=== PATIENT | male | born 1980 | race Caucasian/White ===

== ENCOUNTER 2021-09-07 19:34 | Emergency (ER) | payer SELFPAY ==
--- NOTE | ~2021-09-07 | XR_ITS ---
EXAMINATION: XR chest 1V portable EXAM DATE: 09/07/2021 20:17 INDICATION: Chest tightness @ center of chest with SOB x 2 days. TECHNIQUE: Portable AP frontal chest x-ray was obtained. Comparison is made to prior examination from 2004. FINDINGS: The lungs are clear. There are no pleural effusions. The cardiomediastinal silhouette is within normal limits. There is no pneumothorax suspected. The bones and soft tissues are unremarkab le. There is no significant interval change. IMPRESSION: No acute cardiopulmonary findings. Reviewed, dictated and finalized at location A. [facility]
[2021-09-07 19:35] VITALS: BP 129/85; PULSE 100; PULSE 80; RESP 20; TEMP 36.8; O2SAT 98
--- NOTE | 2021-09-07 19:38 | ECG_ITS ---
Measurements Intervals [place] Rate: 89 P: 72 NC: 154 QRS: 32 QRSD: 85 T: 50 QT: 342 QTc: 417 Interpretive Statements SINUS RHYTHM WITH SINUS ARRHYTHMIA VOLTAGE CRITERIA FOR LVH BASELINE WANDER- II, III BORDERLINE ECG Electronically Signed On 09-08-2021 6:56:48 RELIGIOUS ACTIVITIES DIRECTOR by Mika Hidalgo D.O.
[2021-09-07 20:10] LABS: Basophils Absolute Auto 0.04 K/mm3 (0.00-0.10); Basophils Percent Auto 0.4 % (0.0-1.0); Eosinophils Absolute Auto 0.14 K/mm3 (0.02-0.50); Eosinophils Percent Auto 1.4 % (1.0-6.0); Hematocrit 45.6 % (40.0-54.0); Hemoglobin 15.1 g/dL (14.0-18.0); Immature Granulocyte Absolute 0.02 K/mm3 (0.00-0.00); Immature Granulocyte Percent A 0.2 % (0.0-0.0); Lymphocytes Absolute Auto 2.41 K/mm3 (1.10-4.50); Lymphocytes Percent Auto 24.3 % (18.0-42.0); Mean Corpuscular HGB Conc 33.1 g/dL (32.0-36.0); Mean Corpuscular Hemoglobin 29.9 pg (27.0-31.0); Mean Corpuscular Volume 90.3 fL (78.0-102.0); Mean Platelet Volume 10.7 fl (8.7-11.0); Monocytes Absolute Auto 0.83 K/mm3 (0.10-0.90); Monocytes Percent Auto 8.4 % (2.0-11.0); Neutrophils Absolute Auto 6.5 K/mm3 (1.7-7.2); Neutrophils Percent Auto 65.3 % (50.0-70.0); Platelet Count Result 208 K/mm3 (150-420); Red Blood Count 5.05 M/mm3 (4.70-6.10); Red Cell Distribution Width 12.7 % (11.6-14.4); White Blood Count 9.9 K/mm3 (4.8-10.8)
[2021-09-07] MEDS: NITROGLYCERIN SL 0.4 MG TABLET SUBLINGUAL (20:18)
[2021-09-07 20:24] LABS: D Dimer 0.19 mg/L (0.19-0.50); Prothrombin Time 10.9 Seconds (9.50-12.10)
--- NOTE | 2021-09-07 20:32 | ED.GENADULT ---
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 He is traveling to [place], [place] for treatment. He ate a large meal of pork chops and mashed potatoes then started having chest pain and nausea with some SOB. He denies lightheadedness and vomiting. He took a full strength aspirin before arrival. He also reports 2 days of left upper arm redness and pain that is getting worse. Related Data Allergies Allergy/AdvReac Type Severity Reaction Status Date / Time No Known Allergies Allergy Verified 09/07/21 19:50 Review of Systems Constitutional: Constitutional: Reports no additional constitutional complaints Eyes: Eyes: Reports no additional eye complaints ENT: Reports system reviewed and no additional complaints, except as documented Cardiovascular: Cardiovascular: Reports as per HPI Respiratory: Respiratory: Reports as per HPI Gastrointestinal: Gastrointestinal: Reports no additional gastrointestinal complaints Genitourinary: Genitourinary: Reports no additional male genitourinary complaints Musculoskeletal: Musculoskeletal: Reports no additional musculoskeletal complaints Integumentary/Breasts: Skin/Breast: Reports system reviewed and no additional complaints, except as docu Neurologic: Reports system reviewed and no additional complaints, except as documented Psychiatric: Psychiatric: Reports no additional psychiatric complaints Endocrine: Endocrine: Reports no additional endocrine complaints Hematologic/Lymphatic: Hematologic/Lymphatic: Reports no additional hematologic/lymphatic complaints Allergic/Immunologic: Allergic/Immunologic: Reports no additional allergic/immunologic complaints Exam Const: General: no acute distress and alert Orientation/consciousness: patient oriented x3 Limitations: altered mental status HENMT: Head: normal to inspection Other: atraumatic, normocephalic Eyes: Conjunctivae: conjunctivae normal Pupils: Equal, round and reactive pupils present Neck: Neck: normal visual inspection Chest: Chest palpation & inspection: normal inspection of the chest Resp: Effort & Inspection: normal respiratory effort, not labored and not tachypneic Auscultation: clear to auscultation bilaterally Cardio: Rate: regular rate Rhythm: regular rhythm Heart sounds: no murmurs GI: Inspection: non-distended GI Palp: Yes Soft to palpation, No Tenderness to palpation present (GI) and No Guarding due to palpation present (GI) Back/Spine/Pelvis: Back: no CVA tenderness Skin: General skin exam: normal color Rashes: no rashes Neuro: General: patient oriented x3, moves all extremities, no meningeal signs, no focal motor deficits and CN's II-XI intact bilaterally Extrem: Other: Right lateral arm was erythematous, swollen and TTP on the lateral side Course Course Emergency Course: Nitro did not resolve chest pain. labs, EKG and CXR were unremarkable. Pain did resolve with a GI cocktail. He was given a script for protonix and cephalexin and discharged. Vital Signs Vital signs: Vital Signs Temperature 98.2 F 09/07/21 19:35 Pulse Rate 80 09/07/21 19:35 Respiratory Rate 20 09/07/21 19:35 Blood Pressure 129/85 09/07/21 19:35 Pulse Oximetry 98 09/07/21 19:35 Temperature 98.2 F 09/07/21 19:35 Pulse Rate 100 09/07/21 19:35 Respiratory Rate 20 09/07/21 19:35 Blood Pressure 129/85 09/07/21 19:35 Pulse Oximetry 98 09/07/21 19:35 Medical Decision Making Vital Signs Vital Signs: Vital Signs Temperature 98.2 F 09/07/21 19:35 Pulse Rate 80 09/07/21 19:35 Respiratory Rate 20 09/07/21 19:35 Blood Pressure 129/85 09/07/21 19:35 Pulse Oximetry 98
[2021-09-07 20:35] LABS: Alanine Aminotransferase 83 U/L (16-63); Albumin Level 3.1 g/dL (3.4-5.0); Alkaline Phosphatase 94 U/L (46-116); Anion Gap 7 mmol/L (8-16); Aspartate Amino Transferase 41 U/L (15-37); Bilirubin,Total 0.5 mg/dL (0.00-1.00); Blood Urea Nitrogen 11 mg/dL (7-18); Calcium 8.6 mg/dL (8.5-10.1); Carbon Dioxide 27 mmol/L (21-32); Chloride 103 mmol/L (98-108); Estimated CRCL calculation 84 ml/min; Estimated Glomerular Filt Rate > 60; Glucose 194 mg/dL (70-99); NT Pro B Type Natriuretic Pept 47 pg/mL (0-125); Osmolality Calculated 288 mOsm/kg (285-295); Potassium 3.4 mmol/L (3.5-5.1); Sodium 137 mmol/L (136-145); Thyroid Stimulating Hormone 0.56 uIU/mL (0.36-3.74); Total Protein 7.1 g/dL (6.4-8.2); Troponin I 6.6 ng/L (0.00-60.4)
[2021-09-07] MEDS: CEPHALEXIN 500 MG CAPSULE PO (20:53)
[2021-09-07] MEDS: MAG HYDROX/ALUMINUM HYD/SIMETH 30 ML, PHENobarb/HYOSCY/ATROPINE/SCOP 32.4 MG, LIDOCAINE... PO (21:09)
[2021-09-07 21:33] VITALS: BP 110/68; PULSE 80; PULSE 89; RESP 20; TEMP 36.4; O2SAT 97
== END 2021-09-07 21:34 | disposition home or self-care (01) ==
PROVIDERS: Emergency Provider Family Medicine
DX: R07.9 Chest pain, unspecified (principal); K21.9 Gastro-esophageal reflux disease without esophagitis; L03.90 Cellulitis, unspecified
CPT/HCPCS: 36415; 71045; 80053; 83880; 84443; 84484; 85025; 85380; 85610; 93005; 99283; 99284; A9270

== ENCOUNTER 2022-01-19 22:24 | Emergency (ER) | payer OTHER, SELFPAY ==
--- NOTE | ~2022-01-19 | CT_ITS ---
EXAMINATION: CT brain wo con EXAM DATE: 01/19/2022 23:09 INDICATION: Severe HAN behind RT eye. unable to open eye x 2hrs TECHNIQUE: Spiral CT of the head was performed without contrast. Axial, coronal and sagittal images were reviewed. The dose-length product (DLP) for this examination was 681.00 mGy-cm. The exposure w as tailored according to patient size, and iterative reconstruction (ASIR) was used as additional dos e reduction technique. There is no prior study for comparison. FINDINGS: There is no acute intraparenchymal hemorrhage. No evidence of intraparenchymal brain mass lesion. No evidence of acute infarction. There is no mass effect or midline shift. The ventricles are normal in size. There are no extra-axial collections. There are no acute calvarial fractures. T he orbits are unremarkable. Soft tissue is unremarkable. The visualized sinuses and mastoid air geeta ls are well aerated. IMPRESSION: 1. No acute intracranial findings. 2. Orbits unremarkable. Reviewed, dictated and finalized at location G.
[2022-01-19 22:38] VITALS: BP 163/99; PULSE 81; RESP 20; TEMP 36.6; O2SAT 98
--- NOTE | 2022-01-19 22:46 | ED.HA ---
HPI - Headache General Chief Complaint: Headache Stated Complaint: migraine Source: patient Mode of arrival: ambulatory Limitations: no limitations History of Present Illness HPI Narrative: This is a 41-year-old gentleman with a history of migraines, was with his girlfriend and they had a few alcoholic beverages and gradually started developing his typical migraine right-sided throbbing affecting his right eye tried some medication [id number] with minimal relief, currently has a headache that he rates about a 10/10 with nausea no vomiting at [place] right frontal in location throbbing sensitive to light and sound. There is no chest pain no shortness of breath no neck stiffness no fever or chills. MD elicited complaint: headache and migraine Pertinent past history: migraines Onset (ago): hour(s) Onset description: gradually Location: right, frontal and retro-orbital Severity: severe Pain scale (0-10): 10 Quality & Timing: throbbing, pulsatile and similar to previous headaches Exacerbating factors: light and noise Relieving factors: nothing Context: occurred at rest Associated symptoms: photophobia and sensitivity to sound Related Data Allergies Allergy/AdvReac Type Severity Reaction Status Date / Time No Known Allergies Allergy Verified 01/19/22 22:37 Review of Systems Review of Systems: All systems reviewed & are unremarkable except as noted in HPI and below PMFSH Past Medical History Medical History Migraine Exam Const: General: no acute distress and alert Orientation/consciousness: patient oriented x3 HENMT: Head: normal to inspection Eyes: Conjunctivae: conjunctivae normal Pupils: Equal, round and reactive pupils present Direct Ophthalmoscopy: photophobia Neck: Neck: normal visual inspection, no lymphadenopathy and no meningeal signs Chest: Chest palpation & inspection: normal inspection of the chest Resp: Effort & Inspection: normal respiratory effort Auscultation: clear to auscultation bilaterally Cardio: Rate: regular rate Rhythm: regular rhythm GI: GI Palp: Yes Soft to palpation Percussion: Yes normal to percussion Skin: General skin exam: normal color Rashes: no rashes Extrem: General: normal to inspection and no pedal edema Psych: Mental Status: mental status grossly normal Affect: normal affect and Anxious affect present Attitude: cooperative Course Course Emergency Course: IV started patient received 1mg IV Dilaudid and 4mg IV Zofran, IV fluids started patient has CT scan of the brain which is reviewed. Critical Care Time Critical Care Time Critical Care Time: No Discharge Plan Discharge Clinical Impression: Migraine Qualifiers: Migraine type: ophthalmoplegic Intractability: not intractable Qualified Code(s): G43.B0 - Ophthalmoplegic migraine, not intractable Patient Disposition: Home, Self-Care Condition: Stable Instructions: Antibiotic Form, Migraine Headache (ED) Additional Instructions: Take medicine as prescribed and establish with primary care physician as soon as possible for further evaluation and treatment. Prescriptions: New tramadol [Ultram] 50 mg tablet 50 mg PO Q6H PRN (Reason: pain) Qty: 20 RF: 0 ondansetron HCl 4 mg tablet 4 mg PO Q6H PRN (Reason: nausea and vomiting) Qty: 14 RF: 0 Follow-up/Referrals: UNKNOWN,DOCTOR [Primary Care Provider] - Time of Disposition: 23:32
[2022-01-19] MEDS: ONDANSETRON INJ 4 MG/2 ML VIAL IV PUSH (22:54)
[2022-01-19] MEDS: HYDROmorphone HCL INJ (*CRX) 2 MG/ML VIAL 1 MG IV PUSH ×2 (22:55→23:34)
[2022-01-19] MEDS: SODIUM CHLORIDE 0.9% IV 500 ML 999 ML IV CONT (22:59)
[2022-01-19 23:40] VITALS: BP 150/97; PULSE 85; RESP 18; TEMP 36.6; O2SAT 98
== END 2022-01-19 23:51 | disposition home or self-care (01) ==
PROVIDERS: Emergency Provider Emergency Medicine
DX: G43.B0 Ophthalmoplegic migraine, not intractable (principal)
CPT/HCPCS: 70450; 96361; 96374; 96375; 96376; 99284; J1170; J2405; J7040

== ENCOUNTER 2023-11-21 10:17 | Emergency (ER) | payer SELFPAY ==
--- NOTE | 2023-11-21 10:20 | ED.SKABFB ---
HPI - Skin/Abscess/Foreign Bdy General Chief complaint: Skin/Abscess/Foreign Body Stated complaint: abcess Time Seen by Provider: 11/21/23 10:20 Source: patient Mode of arrival: ambulatory Limitations: no limitations History of Present Illness HPI narrative: 43-year-old male with a history of hep C, methamphetamine abuse presents to the ER with a 2 day history of -- painful skin infection below the right scrotum in the perineal region. Had a prior history of MRSA infection of the right hand. No fever or chills. MD complaint: abscess/boil Onset (ago): day(s) ( Two days ago) Tetanus up to date: yes Severity: severe Quality: aching Pain Consistency: constant Relieving factors: none Exacerbating factors: none Context: none Associated symptoms: denies other symptoms Related Data Home Medications Medication Instructions Recorded Confirmed lisinopril 20 mg tablet 20 mg PO DAILY 11/21/23 11/21/23 Allergies Allergy/AdvReac Type Severity Reaction Status Date / Time No Known Allergies Allergy Verified 11/21/23 10:37 Review of Systems Review of Systems: All systems reviewed & are unremarkable except as noted in HPI and below Constitutional: Constitutional: Reports as per HPI and Reports no additional constitutional complaints Eyes: Eyes: Reports as per HPI and Reports no additional eye complaints ENT: Reports system reviewed and no additional complaints, except as documented and Reports as per HPI Cardiovascular: Cardiovascular: Reports as per HPI and Reports no additional cardiovascular complaints Respiratory: Respiratory: Reports as per HPI and Reports no additional respiratory complaints Gastrointestinal: Gastrointestinal: Reports as per HPI and Reports no additional gastrointestinal complaints Genitourinary: Genitourinary: Reports no additional male genitourinary complaints Musculoskeletal: Musculoskeletal: Reports no additional musculoskeletal complaints and Reports as per HPI Integumentary/Breasts: Skin/Breast: Reports system reviewed and no additional complaints, except as docu and Reports as per HPI Comments: cellulitis under the right perineum Neurologic: Reports system reviewed and no additional complaints, except as documented and Reports as per HPI Psychiatric: Psychiatric: Reports no additional psychiatric complaints and Reports as per HPI Endocrine: Endocrine: Reports no additional endocrine complaints and Reports as per HPI Hematologic/Lymphatic: Hematologic/Lymphatic: Reports no additional hematologic/lymphatic complaints and Reports as per HPI Allergic/Immunologic: Allergic/Immunologic: Reports no additional allergic/immunologic complaints and Reports as per HPI PMFSH Past Medical History Medical History Hepatitis C Migraine Social History Social History Social History: history of amphetamine abuse Exam Const: General: no acute distress Nutritional Appearance: well nourished Orientation/consciousness: patient oriented x3 Limitations: no limitations HENMT: Head: normal to inspection Ears: external ears normal Face/Nose/Sinus: Normal external nose present Face and sinus: normal facial exam Mouth: Yes Normal oral and palatal mucosa present Throat: posterior oropharynx normal Eyes: Conjunctivae: conjunctivae normal Pupils: Equal, round and reactive pupils present EOM: EOMs intact bilaterally Direct Ophthalmoscopy: no photophobia Neck: Neck: normal visual inspection, no lymphadenopathy and no meningeal signs Chest: Chest palpation & inspection: normal inspection of the chest Resp: Effort & Inspection: normal respiratory effort Auscultation: clear to auscultation bilaterally Cardio: Rate: regular rate Rhythm: regular rhythm Heart sounds: Murmur heart sound present GI: Auscultation: normal bowel sounds Other: no tenderness/ rigidity /rebound G
[2023-11-21 10:25] VITALS: BP 146/82; PULSE 102; RESP 20; TEMP 36.8; O2SAT 97
[2023-11-21 10:35] LABS: Glucose Point of Care 134 mg/dl (65-105)
== END 2023-11-21 10:55 | disposition home or self-care (01) ==
PROVIDERS: Emergency Provider Internal Medicine Critical Care Medicine
DX: L03.315 Cellulitis of perineum (principal); Z79.899 Other long term (current) drug therapy
CPT/HCPCS: 82948; 99283

== ENCOUNTER 2023-12-06 01:05 | Emergency (ER) | payer SELFPAY ==
[2023-12-06 01:05] VITALS: BP 155/92; PULSE 97; RESP 18; TEMP 36.3; O2SAT 100
--- NOTE | 2023-12-06 01:09 | ED.SKABFB ---
HPI - Skin/Abscess/Foreign Bdy General Chief complaint: Skin/Abscess/Foreign Body Stated complaint: unspecified Source: patient Mode of arrival: ambulatory History of Present Illness HPI narrative: 43-year-old male with a history of methamphetamine abuse, hepatitis-C presented to the ER on 11/21/1999 for perineal abscesses. He received clindamycin with resolution of his abscesses. He presents to the ER with -- recurrence of 3 perineal abscesses with severe pain and swelling complaint: abscess/boil Onset (ago): week(s) ( 2 weeks) Tetanus up to date: yes Location: genitals ( perineal area) Quality: aching Pain Consistency: constant Relieving factors: none Exacerbating factors: none Related Data Home Medications Medication Instructions Recorded Confirmed lisinopril 20 mg tablet 20 mg PO DAILY 11/21/23 11/21/23 Allergies Allergy/AdvReac Type Severity Reaction Status Date / Time No Known Allergies Allergy Verified 11/21/23 10:37 Review of Systems Review of Systems: All systems reviewed & are unremarkable except as noted in HPI and below Constitutional: Constitutional: Reports as per HPI and Reports no additional constitutional complaints Eyes: Eyes: Reports as per HPI and Reports no additional eye complaints ENT: Reports system reviewed and no additional complaints, except as documented and Reports as per HPI Cardiovascular: Cardiovascular: Reports as per HPI and Reports no additional cardiovascular complaints Respiratory: Respiratory: Reports as per HPI and Reports no additional respiratory complaints Gastrointestinal: Gastrointestinal: Reports as per HPI and Reports no additional gastrointestinal complaints Genitourinary: Genitourinary: Reports no additional male genitourinary complaints and Reports as per HPI Musculoskeletal: Musculoskeletal: Reports no additional musculoskeletal complaints and Reports as per HPI Integumentary/Breasts: Comments: 3 perineal abscesses each measuring 1-2 cm Neurologic: Reports system reviewed and no additional complaints, except as documented and Reports as per HPI Psychiatric: Psychiatric: Reports no additional psychiatric complaints and Reports as per HPI Endocrine: Endocrine: Reports no additional endocrine complaints and Reports as per HPI Hematologic/Lymphatic: Hematologic/Lymphatic: Reports no additional hematologic/lymphatic complaints and Reports as per HPI Allergic/Immunologic: Allergic/Immunologic: Reports no additional allergic/immunologic complaints and Reports as per HPI PMFSH Past Medical History Medical History Hepatitis C Migraine Social History Social History Social History: history of amphetamine abuse Exam Const: General: no acute distress Nutritional Appearance: well nourished Orientation/consciousness: patient oriented x3 Limitations: no limitations HENMT: Head: normal to inspection Ears: external ears normal Face/Nose/Sinus: Normal external nose present Face and sinus: normal facial exam Mouth: Yes Normal oral and palatal mucosa present Throat: posterior oropharynx normal Eyes: Conjunctivae: conjunctivae normal Pupils: Equal, round and reactive pupils present Neck: Neck: normal visual inspection, no lymphadenopathy and no meningeal signs Chest: Chest palpation & inspection: normal inspection of the chest Resp: Effort & Inspection: normal respiratory effort Auscultation: clear to auscultation bilaterally Cardio: Rate: regular rate Rhythm: regular rhythm : General: Yes no CVA tenderness Skin: Other: 3 perineal abscesses under the right testicular region. The measure 1-2 cm. The tender on palpation. No regional lymphadenopathy. Neuro: General: patient oriented x3, moves all extremities, no meningeal signs, no focal motor deficits and CN's II-XI intact bilaterally Cranial nerves: Yes [place]
--- NOTE | 2023-12-06 01:30 | PC.NURSE ---
RN at bedside with ERP for I and D of patient R perineal abscess. Patient tolerated procedure fairly well, refused to let ERP continue to drain second abscess due to significant amount of pain despite lidocaine injection. Large amounts of purulent sanguineous drainage from site. Patient encouraged to allow area to continue to drain.
--- NOTE | 2023-12-06 01:43 | PC.NURSE ---
at bedside speaking with patient regarding discharge plan.
[2023-12-06] MEDS: LIDOCAINE HCL 1% LOCAL INJ 10 ML VIAL 5 ML INFILTRATE (02:01)
--- NOTE | 2023-12-09 12:24 | PC.NURSE ---
preliminary abscess report reviewed by erp, dr moss. Group B Strep isolated. medication pt discharged with needs to be changed to keflex 500mg q6hrs for 10 days per erp. pt called...no answer...message left on machine to return call. pt's contact/sig other called...no answer...message left on machine to return call.
--- NOTE | 2023-12-09 12:35 | PC.NURSE ---
pt returned call. culture report discussed. pt's pharmacy preference confirmed at [facility]. keflex 500mg q6hr x10 days called in to [facility] per erp dr. moss orders. pt agrees to stop current abx and go poultry picker the keflex and start it rogerio. pt instructed to f/u with pmd for further treatment.
--- NOTE | 2023-12-10 13:11 | PC.NURSE ---
FINAL CULTURE REPORT, PER DR INGRAM NO CHANGE TO DISCHARGE MEDICATION.
--- NOTE | 2023-12-12 14:18 | PC.NURSE ---
FINAL ANAEROBIC CULTURE RESULTS: GRAM STAIN: MANY WHITE BLOOD CELLS SEEN, MANY GRAM POSITIVE COCCI IN CHAINS, MANY GRAM POSITIVE BACILLI. ISOLATE 1: HEAVY GROWTH OF PREVOTELLA SPECIES. FINAL AEROBIC CULTURE RESULTS: ISOLATE 1: HEAVY GROWTH OF GROUP B STREPTOCOCCUS ISOLATED. PER DR VEGA PT IS TO FOLLOW UP WITH PMD. PT HAS BEEN CONTACTED AND INSTRUCTED TO FOLLOW WITH PMD.
== END 2023-12-06 02:09 | disposition home or self-care (01) ==
PROVIDERS: Emergency Provider Internal Medicine Critical Care Medicine; PCP Physician Assistant
DX: L02.215 Cutaneous abscess of perineum (principal)
CPT/HCPCS: 10060; 87070; 87075; 87147; 87205; 99283

== ENCOUNTER 2024-06-02 19:09 | Emergency (ER) | payer MEDICAID, SELFPAY ==
--- NOTE | ~2024-06-02 | CT_ITS ---
EXAMINATION: CT lumbar spine wo con DATE: 06/02/2024 19:47 INDICATION: LOWER BACK PAIN, LIFTING HEAVY STUFF . TECHNIQUE: Computed tomography (CT) of the lumbar spine was performed without intravenous contrast. A utomated exposure control and iterative reconstruction technique were employed. The dose-length produ ct was 1765.14 mGy-cm. COMPARISON: None. FINDINGS: 5 nonrib-bearing lumbar-type vertebral bodies. Pedicles intact. Normal vertebral body align ment. Vertebral body heights preserved. Multilevel disc space narrowing, severe at L5-S1. Multilevel mild and moderate degrees of facet arthropathy. Lytic lesions in the left iliac bone and L3, likely h emangiomas. Cortical break in the inferior endplate of the anterior L3 vertebral body. Gap in the pos terior cortex of the L3 vertebral body with smooth chronic appearing margins. Possible extension of s oft tissue density material into the canal. Multilevel moderate degrees of central canal narrowing. B ilateral neural foraminal narrowing at L5-S1 secondary to degenerative changes. IMPRESSION: Findings concerning for acute inferior endplate fracture at L3, possibly representing acute disc dago iation through cortical bone that is weakened by the presence of an L3 hemangioma. Chronic appearing gap in the posterior cortex of L3 with possible soft tissue herniation causing mode rate central canal stenosis. Recommend MRI without and with contrast for further evaluation. Reviewed, dictated and finalized at location K. IMPRESSION: Findings concerning for acute inferior endplate fracture at L3, possibly repres enting acute disc herniation through cortical bone that is weakened by the pres ence of an L3 hemangioma. Chronic appearing gap in the posterior cortex of L3 with possible soft tissue h erniation causing moderate central canal stenosis. Recommend MRI without and with contrast for further evaluation.
[2024-06-02 19:14] VITALS: BP 156/87; PULSE 83; RESP 20; TEMP 35.9; O2SAT 94
--- NOTE | 2024-06-02 19:23 | ED.BACK ---
HPI - Back Pain/Injury General Chief Complaint: Back Pain/Injury Stated Complaint: back pain Time Seen by Provider: 06/02/24 19:14 Source: patient Related Data Home Medications Medication Instructions Recorded Confirmed lisinopril 20 mg tablet (Zestril) 20 mg PO DAILY 11/21/23 06/02/24 Allergies Allergy/AdvReac Type Severity Reaction Status Date / Time No Known Allergies Allergy Verified 12/06/23 01:45 [facility] Past Medical History Medical History Hepatitis C Migraine Social History Social History Social History: history of amphetamine abuse Course Consultations Consultation #1: DR. WREN, SPINE SURGEON AT [facility] WHO ACCEPTED PATIENT Date: 06/02/24 Time: 21:44 Consultation #2: DR. DEWEY, EMERGENCY ROOM PHYSICIAN AT [facility] Date: 06/02/24 Time: 21:45 Vital Signs Vital signs: Vital Signs Temperature 35.9 C L 06/02/24 19:14 Pulse Rate 83 06/02/24 19:14 Respiratory Rate 20 06/02/24 19:14 Blood Pressure 156/87 H 06/02/24 19:14 Pulse Oximetry 94 06/02/24 19:14 Oxygen Delivery Room Air 06/02/24 19:14 Temperature 36.3 C L 06/02/24 21:09 Pulse Rate 80 06/02/24 21:09 Respiratory Rate 18 06/02/24 21:09 Blood Pressure 135/83 06/02/24 21:09 Pulse Oximetry 97 06/02/24 21:09 Oxygen Delivery Room Air 06/02/24 21:09 MDM - Back Pain/Injury MDM Narrative Medical decision making narrative: PATIENT CAME TO THE ED BY AMBULANCE WITH SEVERE LOWER BACK PAIN AFTER LIFTING HEAVY TOILET REMODELING HIS BATHROOM. PATIENT UNABLE TO MOVE EVEN ROLLING OVER IN BED TO EXAMINE HIS BACK. VITAL SIGNS ON ARRIVAL ARE STABLE PHYSICAL EXAMINATION SHOWED THAT THE PATIENT IN PAIN, UNABLE TO MOVE, MOVING LOWER EXTREMITY IS LIMITED BECAUSE OF THE PAIN, SENSATION IS INTACT. DIFFERENTIAL DIAGNOSIS INCLUDES FLUIDS MUSCULAR STRAIN/ SPRAIN, BULGING DISC, HERNIATED DISC, LESS LIKELY FRACTURE. CT SCAN OF LUMBAR SPINE SHOWED L3 HEMANGIOMA, POSSIBLE FRACTURES. MRI WITH AND WITHOUT OF THE LUMBAR SPINE IS READ COMMENDED. TRANSFERRED TO [facility] DISCUSSED WITH THE STAFF AND SURGEON AND ED PHYSICIAN WHO ACCEPTED PATIENT TRANSFER. Differential Diagnosis Differential diagnosis: Likely lumbar radiculopathy, sciatica, strain of lumbar region and discitis Lab Data 06/02/24 20:27 06/02/24 20:27 Labs: Lab Results 06/02/24 Range/Units 20:27 WBC 10.5 (4.8-10.8) K/mm3 RBC 4.91 (4.70-6.10) M/mm3 Hgb 15.3 (14.0-18.0) g/dL Hct 44.1 (40.0-54.0) % MCV 89.8 (78.0-102.0) fL MCH 31.2 H (27.0-31.0) pg MCHC 34.7 (32-36) g/dL RDW 12.4 (11.6-14.4) % Plt Count 211 (150-420) K/mm3 MPV 10.7 (8.7-11.0) fl Immature Gran % (Auto) 0.3 H (0.0-0.0) % Neut % (Auto) 58.3 (50.0-70.0) % Lymph % (Auto) 27.9 (18.0-42.0) % [place] % (Auto) 11.4 H (2.0-11.0) % Eos % (Auto) 1.6 (1.0-6.0) % Baso % (Auto) 0.5 (0.0-1.0) % Lymph # (Auto) 2.93 (1.10-4.50) K/mm3 [place] # (Auto) 1.20 H (0.10-0.90) K/mm3 Eos # (Auto) 0.17 (0.02-0.50) K/mm3 Baso # (Auto) 0.05 (0.00-0.10) K/mm3 Abs Immat Gran (auto) 0.03 H (0.00-0.00) K/mm3 Absolute Neuts (auto) 6.13 (1.70-7.20) K/mm3 Absolute Nucleated RBC 0.00 (0.00-0.00) K/mm3 Nucleated RBC % 0.0 (0-0.0) % Sodium Pending Potassium Pending Chloride Pending Carbon Dioxide Pending Anion Gap Pending BUN Pending Creatinine Pending Estim Creat Clear Calc Pending Estimated GFR Pending Glucose Pending Calculated Osmolality Pending Calcium Pending Total Bilirubin Pending AST Pending ALT Pending Alkaline Phosphatase Pending Total Protein Pending Albumin Pending Imaging Data Radiologist's impression: Impressions Lumbar Spine CT 06/02/24 19:58 IMPRESSION: Findings concerning for acute in
[2024-06-02] MEDS: ONDANSETRON INJ 4 MG/2 ML VIAL IV PUSH ×2 (19:30→22:53)
[2024-06-02] MEDS: KETOROLAC 30 MG/ML VIAL (*BKC) IV PUSH (19:30)
[2024-06-02] MEDS: HYDROmorphone HCL INJ (*CRX) 2 MG/ML VIAL 0.5 MG IV PUSH ×2 (19:31→22:00)
[2024-06-02 19:48] VITALS: BP 155/86; PULSE 73
[2024-06-02 20:33] LABS: Basophils Absolute Auto 0.05 K/mm3 (0.00-0.10); Basophils Percent Auto 0.5 % (0.0-1.0); Eosinophils Absolute Auto 0.17 K/mm3 (0.02-0.50); Eosinophils Percent Auto 1.6 % (1.0-6.0); Hematocrit 44.1 % (40.0-54.0); Hemoglobin 15.3 g/dL (14.0-18.0); Immature Granulocyte Absolute 0.03 K/mm3 (0.00-0.00); Immature Granulocyte Percent A 0.3 % (0.0-0.0); Lymphocytes Absolute Auto 2.93 K/mm3 (1.10-4.50); Lymphocytes Percent Auto 27.9 % (18.0-42.0); Mean Corpuscular HGB Conc 34.7 g/dL (32-36); Mean Corpuscular Hemoglobin 31.2 pg (27.0-31.0); Mean Corpuscular Volume 89.8 fL (78.0-102.0); Mean Platelet Volume 10.7 fl (8.7-11.0); Monocytes Percent Auto 11.4 % (2.0-11.0); Neutrophils Absolute Auto 6.13 K/mm3 (1.70-7.20); Neutrophils Percent Auto 58.3 % (50.0-70.0); Platelet Count Result 211 K/mm3 (150-420); Red Blood Count 4.91 M/mm3 (4.70-6.10); Red Cell Distribution Width 12.4 % (11.6-14.4); White Blood Count 10.5 K/mm3 (4.8-10.8)
[2024-06-02 21:09] VITALS: BP 135/83; PULSE 80; RESP 18; TEMP 36.3; O2SAT 97
--- NOTE | 2024-06-02 21:14 | PC.NURSE ---
Pt and g-friend updated on POC and transfer to [facility]. Awaiting callbacks from Spinal physician at [facility] before transfer. Pt resting, tearful, pain is slightly better when not moving. VSS. Call melvin at side.
--- NOTE | 2024-06-02 21:52 | PC.NURSE ---
Pt repositioned, pain increasing again, order for Pain med received before transfer.
[2024-06-02 21:55] VITALS: BP 151/94; PULSE 80; RESP 18; TEMP 36.4; O2SAT 94
[2024-06-02] MEDS: diazePAM INJ (*CRX) 10 MG/2 ML SYRINGE 5 MG IV PUSH (22:04)
--- NOTE | 2024-06-02 22:08 | PC.NURSE ---
Pt given pain med and muscle relaxant IV before transfer per ERP order. Pt given cool wash cloths to forehead due to pain and doiaphoresis. Pt resting comfortable after meds given, EMS called for transfer. Report given to U processing engineerSissy Jameson.
[2024-06-02 22:53] VITALS: BP 136/85; PULSE 92; RESP 20; TEMP 36.3; O2SAT 95
[2024-06-02 23:11] LABS: Alanine Aminotransferase 91 U/L (6-50); Albumin Level 3.7 g/dL (3.5-5.1); Alkaline Phosphatase 107 U/L (38-126); Anion Gap 8 mmol/L (4-12); Aspartate Amino Transferase 65 U/L (17-59); Bilirubin,Total 0.5 mg/dL (0.2-1.3); Blood Urea Nitrogen 13 mg/dL (9-20); Calcium 8.8 mg/dL (8.4-10.2); Carbon Dioxide 24 mmol/L (22-30); Chloride 104 mmol/L (98-107); Estimated CRCL calculation 121 ml/min; Estimated Glomerular Filt Rate > 60; Glucose 115 mg/dL (65-110); Osmolality Calculated 283 mOsm/kg (285-295); Potassium 4.1 mmol/L (3.4-5.0); Sodium 136 mmol/L (137-145)
== END 2024-06-02 22:53 | disposition short-term general hospital (02) ==
PROVIDERS: Emergency Provider Emergency Medicine
DX: M54.50 Low back pain, unspecified (principal); D18.09 Hemangioma of other sites
CPT/HCPCS: 36415; 72131; 80053; 85025; 96374; 96375; 96376; 99285; J1170; J1885; J2405; J3360

== ENCOUNTER 2024-08-29 17:35 | Inpatient (IN) | payer OTHER, SELFPAY ==
[2024-08-29] VITALS (19 sets, daily range): BP systolic 121–157; BP diastolic 61–91; PULSE 88–97; RESP 18–20; TEMP 37.9–38.7; O2SAT 90–96; BMI 34.8
--- NOTE | ~2024-08-29 | CT_ITS ---
EXAMINATION: CTA chest PE protocol DATE: 08/30/2024 11:30 INDICATION: Chest pain, shortness of breath and hypoxia TECHNIQUE: Computed tomography (CT) pulmonary angiogram of the chest was performed with 100 mL Omnipa que-350 intravenous contrast. Additional 3D reconstructions utilizing coronal maximum intensity proje ction (MIP) were performed. Automated exposure control and iterative reconstruction technique were em ployed. The dose-length product was 1050.85 mGy-cm. COMPARISON: None FINDINGS: There is good contrast opacification of the pulmonary arteries however there is also mild to moderate scattered respiratory motion artifact which decreases sensitivity and specificity in some of the sma ller segmental and subsegmental pulmonary arteries. There appear to be filling defects in segmental a nd subsegmental pulmonary arteries in the left upper lobe suspicious for laminar emboli. No other les ions suspicious for pulmonary emboli identified. There are very small posterior layering bilateral pl eural effusions with dependent atelectasis in both lungs. There is a band of discoid atelectasis at t he basilar lingula between the basilar and superior segment of the right lower lobe. There are multip le scattered small ill-defined nodular opacities with ill-defined margins and peripheral groundglass opacity scattered throughout both lungs. One of the nodules measuring 1.9 cm at the anterobasilar seg ment of the right lower lobe appears demonstrates central decreased attenuation, potentially cavitary . In addition to potential metastatic disease the appearance also suggests possibility of septic embo li. There is mild smooth septal line thickening in both lungs with basilar predominance consistent wi th mild pulmonary edema. Heart size is normal. There is increased fluid in the superior pericardial r ecess without nelia pericardial effusion around the heart. Thoracic aorta is normal in caliber withou t dissection. No pathologically enlarged thoracic lymphadenopathy. Visualized upper abdomen is unrema rkable. Bones are unremarkable. Right internal jugular central venous port catheter with distal tip a t the superior cavoatrial junction. IMPRESSION: 1. Suggestion of possible pulmonary emboli in the segmental and subsegmental pulmonary arteries of th e left upper lobe. Evaluation is however limited in this region by respiratory motion artifact. 2. Multiple scattered bilateral pulmonary nodules measuring up to 2 cm for which differential would i nclude pneumonia or metastatic disease. Appearance of a few of the nodules however also raises possib ility of septic emboli. Correlate for signs/symptoms of bacteremia. 3. Mild pulmonary edema with very small bilateral pleural effusions. Reviewed, dictated and finalized at location A. IMPRESSION: 1. Suggestion of possible pulmonary emboli in the segmental and subsegmental pu lmonary arteries of the left upper lobe. Evaluation is however limited in this region by respiratory motion artifact. 2. Multiple scattered bilateral pulmonary nodules measuring up to 2 cm for whic h differential would include pneumonia or metastatic disease. Appearance of a f ew of the nodules however also raises possibility of septic emboli. Correlate f or signs/symptoms of bacteremia. 3. Mild pulmonary edema with very small bilateral pleural effusions.
--- NOTE | ~2024-08-29 | XR_ITS ---
EXAMINATION: XR chest 1V portable DATE: 08/31/2024 05:18 INDICATION: Shortness of breath TECHNIQUE: frontal view of the chest was obtained. COMPARISON: Chest radiograph dated 08/30/2024 FINDINGS: Bandlike discoid atelectasis at the right lower lung zone. Streaky opacities at the left lower lung z one. Small nodular opacity right midlung zone. Pulmonary vascular congestion. X. Heart size within no rmal limits for AP technique.Right internal jugular central venous port catheter with distal tip at t he superior cavoatrial junction. IMPRESSION: 1. Mild bilateral opacities with lower lung predominance which on CT from one day prior corresponding to combination of atelectasis and scattered nodular opacities which could represent pneumonia or met astatic disease. 2. Pulmonary vascular congestion without nelia pulmonary edema. Reviewed, dictated and finalized at location A. POTATO CUTTER IMPRESSION: 1. Mild bilateral opacities with lower lung predominance which on CT from one d ay prior corresponding to combination of atelectasis and scattered nodular opac ities which could represent pneumonia or metastatic disease. 2. Pulmonary vascular congestion without nelia pulmonary edema.
--- NOTE | ~2024-08-29 | XR_ITS ---
EXAMINATION: XR chest 2V DATE: 08/30/2024 07:31 INDICATION: Shortness of breath and chest pain TECHNIQUE: frontal and lateral views of the chest were obtained. COMPARISON: Chest radiograph dated 08/29/2024 FINDINGS: Right internal jugular central venous port catheter with distal tip at the high right atrium. Persist ent opacities at the bilateral lower lung zones. No pleural effusion or pneumothorax. The cardiomedia stinal silhouette is within normal limits for AP technique. IMPRESSION: 1. Persistent mild opacities at the bilateral lower lung zones which could represent atelectasis or p neumonia. Reviewed, dictated and finalized at location A. IMPRESSION: 1. Persistent mild opacities at the bilateral lower lung zones which could repr esent atelectasis or pneumonia.
--- NOTE | ~2024-08-29 | XR_ITS ---
XR chest 1V portable Ordering provider: Ruel Velasco MD History: 43 years Male with . sepsis . Comparison: None. FINDINGS: A right Port-A-Cath with the tip overlying the right atrium. MEDIASTINUM: The cardiac silhouette is s lightly enlarged. Congestive rivas. LUNGS: No effusions or pneumothorax. Minimal opacification seen in the right and left lung base. Bila teral interstitial changes are noted. OTHER: No free air under the diaphragm. IMPRESSION: Cardiomegaly with cardiac decompensation and possible pulmonary edema. Bibasilar atelectasis versus pneumonia. Reviewed, dictated and finalized at location A.
--- NOTE | ~2024-08-29 | CT_ITS ---
EXAMINATION: CT abdomen pelvis wo con DATE: 08/30/2024 11:30 INDICATION: A gastric abdominal pain and diarrhea. TECHNIQUE: Computed tomography (CT) of the abdomen and pelvis was performed without intravenous contr ast. Automated exposure control and iterative reconstruction technique were employed. The dose-length product was 1467.37 mGy-cm. COMPARISON: None FINDINGS: Very small bilateral pleural effusions with associated mild dependent compressive atelectasis in the bilateral lower lobes. There are also scattered nodular opacities in the visualized lower lungs. See separate chest CT report for further detail. Heart size normal. No pericardial effusion. Distal tip o f a central venous catheter at the superior cavoatrial junction. Cholecystectomy clips the gallbladder fossa. Liver, spleen, pancreas, bilateral adrenal glands and ki dneys are normal. There is fluid layering in the rectum consistent with diarrhea. No abnormal bowel w all thickening or obstruction. Suture line at the tip the cecum consistent with prior appendectomy. B ladder is normal. Small fat-containing left inguinal hernia. No free intraperitoneal gas or fluid. No pathologically enlarged abdominal or pelvic lymphadenopathy. Interval vertebroplasty with methyl met hacrylate filling the previously noted large lytic lesion most likely representing a hemangioma. Mode rate spondylosis the lower thoracic spine and severe degenerative disc disease at L5-S1. No significa nt interval change in an indeterminate mixed lytic and sclerotic lesion at the left posterior iliac s pine. Bone islands at the bilateral femoral heads. More subtle indeterminate sclerotic lesion at the left posterior aspect of L5. IMPRESSION: 1. Fluid in the rectum consistent with nonspecific diarrhea. No other acute intra-abdominal/pelvic pr ocess. 2. Multiple nodules scattered throughout the visualized lower lungs as described in further detail on prior chest CT. Differential would include pneumonia including septic emboli or metastatic disease. 3. Very small bilateral pleural effusions. 4. Indeterminate mixed lytic and sclerotic lesion at the left posterior iliac spine with no discernib le interval change since 06/02/2024 which favors a benign etiology. The time since the prior study harris osei remains relatively short and there is a second indeterminate subtle sclerotic lesion at L5. Would recommend correlation with any prior outside imaging if available. Otherwise would consider further evaluation with and postcontrast MRI and/or bone scan for further evaluation. Reviewed, dictated and finalized at location A. IMPRESSION: 1. Fluid in the rectum consistent with nonspecific diarrhea. No other acute int ra-abdominal/pelvic process. 2. Multiple nodules scattered throughout the visualized lower lungs as describe d in further detail on prior chest CT. Differential would include pneumonia inc luding septic emboli or metastatic disease. 3. Very small bilateral pleural effusions. 4. Indeterminate mixed lytic and sclerotic lesion at the left posterior iliac s pine with no discernible interval change since 06/02/2024 which favors a benign e tiology. The time since the prior study however remains relatively short and th ere is a second indeterminate subtle sclerotic lesion at L5. Would recommend co rrelation with any prior outside imaging if available. Otherwise would consider further evaluation with and postcontrast MRI and/or bone scan for further eval uation.
--- NOTE | ~2024-08-29 | XR_ITS ---
EXAMINATION: XR hand RT 2V DATE: 08/30/2024 13:42 INDICATION: Right hand pain TECHNIQUE: Posteroanterior and lateral views of the right hand were obtained. COMPARISON: None. FINDINGS: Alignment is normal. No fracture. Joint spaces are normal. No erosions. Soft tissues are unremarkable . IMPRESSION: 1. Normal right hand radiographs. Reviewed, dictated and finalized at location A.
--- NOTE | 2024-08-29 17:48 | ED_ITS ---
HPI - Fever General Chief Complaint: Fever Stated Complaint: flu like symptoms Source: patient and family Mode of arrival: ambulatory Limitations: no limitations History of Present Illness HPI Narrative: patient is a 43-year-old male with known multiple myeloma of his lower spine and here with nausea and vomiting and generalized aches and pains with fever. it appears the patient is on a bisphosphonate injection and took it a few days ago and now is having myalgias and arthralgias. chronic steroid use with illness. He has diabetes type 2. MD elicited complaint: fever, malaise and weakness Pertinent past history: immunosuppression ( Multiple myeloma and currently getting chemo and radiation) Onset (ago): day(s) (3) Measured temperature: 102 C Context: on immunosuppressant(s) Exacerbating factors: nothing Relieving factors: acetaminophen Associated symptoms: chills, myalgias, headache, rhinorrhea, nasal congestion, shortness of breath, nausea, vomiting and extremity pain Treatments prior to arrival fever: acetaminophen and ibuprofen Related Data Home Medications Medication Instructions Recorded Confirmed Adult Aspirin EC Low Strength 81 mg PO DAILY 08/29/24 08/29/24 acetaminophen 300 mg-codeine 30 mg 300 tablet PO Q6H PRN Pain, 08/29/24 08/29/24 tablet Moderate acyclovir 400 mg tablet 400 mg PO BID 08/29/24 08/29/24 carvedilol 12.5 mg tablet 12.5 mg PO BID 08/29/24 08/29/24 dexamethasone 4 mg tablet 4 mg PO WEEKLY 08/29/24 08/29/24 empagliflozin 25 mg tablet 25 mg PO DAILY 08/29/24 08/29/24 (Jardiance) insulin aspart U-100 100 unit/mL 5 unit subcut TID 08/29/24 08/29/24 (3 mL) subcutaneous pen insulin glargine-yfgn 100 unit/mL 20 unit subcut DAILY 08/29/24 08/29/24 (3 mL) subcutaneous pen lenalidomide 25 mg capsule 25 mg PO WEEKLY 08/29/24 08/29/24 (Revlimid) methocarbamol 500 mg tablet 750 mg PO TID PRN Pain (Scale 08/29/24 08/29/24 Score 7-10) ondansetron HCl 8 mg tablet 8 mg PO Q6H PRN Nausea 08/29/24 08/29/24 prochlorperazine maleate 10 mg 10 mg PO Q6H PRN Nausea 08/29/24 08/29/24 tablet sennosides 8.6 mg tablet (senna) 17.2 mg PO DAILY PRN Constipation 08/29/24 08/29/24 Allergies Allergy/AdvReac Type Severity Reaction Status Date / Time No Known Allergies Allergy Verified 12/06/23 01:45 Review of Systems Review of Systems: All systems reviewed & are unremarkable except as noted in HPI and below Constitutional: Constitutional: Reports no additional constitutional compla ints Eyes: Eyes: Reports no additional eye complaints ENT: Reports system reviewed and no additional complaints, except as documented Cardiovascular: Cardiovascular: Reports no additional cardiovascular complaints Respiratory: Respiratory: Reports no additional respiratory complaints Gastrointestinal: Gastrointestinal: Reports no additional gastrointestinal complaints Genitourinary: Genitourinary: Reports no additional male genitourinary complaints Musculoskeletal: Musculoskeletal: Reports no additional musculoskeletal complaints Integumentary/Breasts: Skin/Breast: Reports system reviewed and no additional complaints, except as docu Neurologic: Reports system reviewed and no additional complaints, except as documented Psychiatric: Psychiatric: Reports no additional psychiatric complaints Endocrine: Endocrine: Reports no additional endocrine complaints Hematologic/Lymphatic: Hematologic/Lymphatic: Reports no additional hematologic/lymphatic complaints Allergic/Immunologic: Allergic/Immunologic: Reports no additional allergic/immunologic complaints PMFSH Past Medical History Medical History Hepatitis C Migraine Social History Social History Social History: history of amphetamine abuse Exam Const: General: ill appearing Nutritional Appearance: well nourished Orientation/consciousness: patient oriented x3 Limitations: no limitations HENMT: Head: normal to inspection Ears: external ears normal Face/Nose/Sinus: Normal external nose present Eyes: Conjunctivae: conjunctivae normal Pupils: Equal, round and reactive pupils present EOM: EOMs intact bilaterally Neck: Neck: normal visual inspection Chest: Chest palpation & inspection: normal inspection of the chest Resp: Effort & Inspection: normal respiratory effort and not labored Auscultation: clear to auscultation bilaterally, crackles bilateral at the base and diffuse, no rales, rhonchi, no wheezes, breath sounds present and diminished lung sounds Cardio: Rate: regular rate Rhythm: regular rhythm Heart sounds: no murmurs GI: Inspection: non-distended GI Palp: Yes Soft to palpation and No Tenderness to palpation present (GI) Auscultation: normal bowel sounds : General: Yes bladder normal to palpation Back/Spine/Pelvis: Back: no CVA tenderness Skin: General skin exam: normal color Rashes: no rashes Wounds: no wounds Other: Right chest has recent central line site with slight oozing and pus when squeezed of the area but no localized major cellulitis changes; culture was taken of this area for bacteria; patient has a Port-A-Cath on his left chest which is recently placed Neuro: General: patient oriented x3 Cranial nerves: Yes Nystagmus not present Speech: normal speech Extrem: General: normal to inspection Psych: Appearance: grossly normal Mental Status: mental status grossly normal Affect: normal affect Attitude: cooperative Course Vital Signs Vital signs: Vital Signs Temperature 38.7 C H 08/29/24 17:52 Pulse Rate 93 08/29/24 17:52 Respiratory Rate 18 08/29/24 17:52 Blood Pressure 146/80 H 08/29/24 17:52 Pulse Oximetry 95 08/29/24 17:52 Oxygen Delivery Room Air 08/29/24 17:52 Temperature 37.9 C H 08/29/24 20:31 Pulse Rate 88 08/29/24 23:15 Respiratory Rate 18 08/29/24 23:15 Blood Pressure 141/76 H 08/29/24 23:15 Pulse Oximetry 90 08/29/24 23:15 Oxygen Delivery Room Air 08/29/24 21:47 MDM - Fever MDM Narrative Medical decision making narrative: patient is a 43-year-old male with immunocompromise secondary to chemo and radiation due to multiple myeloma here with fever and nausea vomiting. We will do workup at this time. He would like to be admitted to this facility on a trial basis to see if he does okay knowing that we have pneumonia at this time. Patient's last hospitalization was over a month ago. We will not add vancomycin at this time. If he continues to spike a fever however we will add vancomycin. It appears the patient may be on chronic steroids versus a taper dose and we will give 1 dose of hydrocortisone at this time as a booster. It appears he takes dexamethasone on a weekly basis before chemo. I did find some changes of CHF and further workup could be done as an inpatient. He does not need Lasix at this time. Lab Data Attestation: I reviewed the patient's lab results. 08/29/24 18:31 08/29/24 18:31 Labs: Lab Results 08/29/24 08/29/24 08/29/24 Range/Units 17:45 18:31 22:25 WBC 14.1 H (4.8-10.8) K/mm3 RBC 4.65 L (4.70-6.10) M/mm3 Hgb 14.2 (14.0-18.0) g/dL Hct 43.2 (40.0-54.0) % MCV 92.9 (78.0-102.0) fL MCH 30.5 (27.0-31.0) pg MCHC 32.9 (32-36) g/dL RDW 14.3 (11.6-14.4) % Plt Count 99 L (150-420) K/mm3 MPV 12.1 H (8.7-11.0) fl Immature Gran % (Auto) 0.8 H (0.0-0.0) % Neut % (Auto) 75.7 H (50.0-70.0) % Lymph % (Auto) 9.5 L (18.0-42.0) % [place] % (Auto) 13.5 H (2.0-11.0) % Eos % (Auto) 0.1 L (1.0-6.0) % Baso % (Auto) 0.4 (0.0-1.0) % Lymph # (Auto) 1.33 (1.10-4.50) K/mm3 [place] # (Auto) 1.90 H (0.10-0.90) K/mm3 Eos # (Auto) 0.01 L (0.02-0.50) K/mm3 Baso # (Auto) 0.05 (0.00-0.10) K/mm3 Abs Immat Gran (auto) 0.11 H (0.00-0.00) K/mm3 Absolute Neuts (auto) 10.67 H (1.70-7.20) K/mm3 Absolute Nucleated RBC 0.00 (0.00-0.00) K/mm3 Nucleated RBC % 0.0 (0-0.0) % Sodium 127 L (136-145) mmol/L Potassium 4.0 (3.5-5.1) mmol/L Chloride 95 L (98-108) mmol/L Carbon Dioxide 19 L (21-32) mmol/L Anion Gap 13 H (4-12) mmol/L BUN 19 H (7-18) mg/dL Creatinine 1.18 (0.70-1.30) mg/dL Estim Creat Clear Calc 91 ml/min Estimated GFR > 60 (59 - ) Glucose 126 H (70-99) mg/dL Calculated Osmolality 268 L (285-295) mOsm/kg Lactic Acid 1.6 (0.4-2.0) mmol/L Calcium 7.4 L (8.5-10.1) mg/dL Total Bilirubin 2.0 H (0.00-1.00) mg/dL AST 67 H (15-37) U/L ALT 149 H (16-63) U/L Alkaline Phosphatase 113 (46-116) U/L Troponin I (0.00-60.4) ng/L NT-Pro-B Natriuret Pep (0-125) pg/mL Total Protein 7.0 (6.4-8.2) g/dL Albumin 2.6 L (3.4-5.0) g/dL Urine Color Yellow (Yellow) Urine Appearance Clear (Clear) Urine pH 5.5 (5.0-8.0) Ur Specific [place] 1.020 (1.010-1.020) Urine Protein Trace H (Negative) Urine Glucose (UA) 3+ H (Negative) Urine Ketones 2+ H (Negative) Ur Blood (Man) Negative (Negative) Urine Nitrate Negative (Negative) Urine Bilirubin Negative (Negative) Urine Urobilinogen 0.2 (0.2-1.0) mg/dL Leukocyte Esterase Rfl Negative (Negative) GLENN/UL Urine RBC 0-2 (0-2) /hpf Urine WBC 0-3 (0-3) /hpf Ur Squamous Epith Cells None seen (Few) /hpf Urine Bacteria None seen (None) /hpf Acetone Level (Negative) Influenza A (RT-PCR) Negative (Negative) Influenza B (RT-PCR) Negative (Negative) RSV (RT-PCR) Negative (Negative) SARS-CoV-2 RNA (RT-PCR) Negative (Negative) 08/29/24 Range/Units 22:37 WBC (4.8-10.8) K/mm3 RBC (4.70-6.10) M/mm3 Hgb (14.0-18.0) g/dL Hct (40.0-54.0) % MCV (78.0-102.0) fL MCH (27.0-31.0) pg MCHC (32-36) g/dL RDW (11.6-14.4) % Plt Count (150-420) K/mm3 MPV (8.7-11.0) fl Immature Gran % (Auto) (0.0-0.0) % Neut % (Auto) (50.0-70.0) % Lymph % (Auto) (18.0-42.0) % [place] % (Auto) (2.0-11.0) % Eos % (Auto) (1.0-6.0) % Baso % (Auto) (0.0-1.0) % Lymph # (Auto) (1.10-4.50) K/mm3 [place] # (Auto) (0.10-0.90) K/mm3 Eos # (Auto) (0.02-0.50) K/mm3 Baso # (Auto) (0.00-0.10) K/mm3 Abs Immat Gran (auto) (0.00-0.00) K/mm3 Absolute Neuts (auto) (1.70-7.20) K/mm3 Absolute Nucleated RBC (0.00-0.00) K/mm3 Nucleated RBC % (0-0.0) % Sodium (136-145) mmol/L Potassium (3.5-5.1) mmol/L Chloride (98-108) mmol/L Carbon Dioxide (21-32) mmol/L Anion Gap (4-12) mmol/L BUN (7-18) mg/dL Creatinine (0.70-1.30) mg/dL Estim Creat Clear Calc ml/min Estimated GFR (59 - ) Glucose (70-99) mg/dL Calculated Osmolality (285-295) mOsm/kg Lactic Acid (0.4-2.0) mmol/L Calcium (8.5-10.1) mg/dL Total Bilirubin (0.00-1.00) mg/dL AST (15-37) U/L ALT (16-63) U/L Alkaline Phosphatase (46-116) U/L Troponin I 10.5 (0.00-60.4) ng/L NT-Pro-B Natriuret Pep 1157 H (0-125) pg/mL Total Protein (6.4-8.2) g/dL Albumin (3.4-5.0) g/dL Urine Color (Yellow) Urine Appearance (Clear) Urine pH (5.0-8.0) Ur Specific [place] (1.010-1.020) Urine Protein (Negative) Urine Glucose (UA) (Negative) Urine Ketones (Negative) Ur Blood (Man) (Negative) Urine Nitrate (Negative) Urine Bilirubin (Negative) Urine Urobilinogen (0.2-1.0) mg/dL Leukocyte Esterase Rfl (Negative) GLENN/UL Urine RBC (0-2) /hpf Urine WBC (0-3) /hpf Ur Squamous Epith Cells (Few) /hpf Urine Bacteria (None) /hpf Acetone Level Negative (Negative) Influenza A (RT-PCR) (Negative) Influenza B (RT-PCR) (Negative) RSV (RT-PCR) (Negative) SARS-CoV-2 RNA (RT-PCR) (Negative) Imaging Data Attestation: I personally reviewed and interpreted this imaging study as f ankush: Radiologist's impression: chest x-ray shows bilateral lower lobe pneumonia and questionable CHF type changes ECG Data EKG #1: Attestation: I personally reviewed and interpreted this ECG as follows: ECG completion date: 08/29/24 ECG completion time: 23:08 EKG Interpretation: normal rate, sinus rhythm, no ectopy, non-specific ST changes, normal QRS, normal QT and NL axis Discharge Plan Discharge Clinical Impression: Increased anion gap metabolic acidosis, Hyponatremia, Immunocompromised, Elevated brain natriuretic peptide (BNP) level Pneumonia Qualifiers: Pneumonia type: due to unspecified organism Laterality: bilateral Lung location: unspecified part of lung Qualified Code(s): J18.9 - Pneumonia, unspecified organism Pulmonary edema Qualifiers: Chronicity: acute Qualified Code(s): J81.0 - Acute pulmonary edema Patient Disposition: [facility] Condition: Stable Time of Disposition: 22:42
[2024-08-29 18:27] LABS: SARS-CoV-2 RNA PCR Negative (Negative)
[2024-08-29 18:34] LABS: Basophils Absolute Auto 0.05 K/mm3 (0.00-0.10); Basophils Percent Auto 0.4 % (0.0-1.0); Eosinophils Absolute Auto 0.01 K/mm3 (0.02-0.50); Eosinophils Percent Auto 0.1 % (1.0-6.0); Hematocrit 43.2 % (40.0-54.0); Hemoglobin 14.2 g/dL (14.0-18.0); Immature Granulocyte Absolute 0.11 K/mm3 (0.00-0.00); Immature Granulocyte Percent A 0.8 % (0.0-0.0); Lymphocytes Absolute Auto 1.33 K/mm3 (1.10-4.50); Lymphocytes Percent Auto 9.5 % (18.0-42.0); Mean Corpuscular HGB Conc 32.9 g/dL (32-36); Mean Corpuscular Hemoglobin 30.5 pg (27.0-31.0); Mean Corpuscular Volume 92.9 fL (78.0-102.0); Mean Platelet Volume 12.1 fl (8.7-11.0); Monocytes Percent Auto 13.5 % (2.0-11.0); Neutrophils Absolute Auto 10.67 K/mm3 (1.70-7.20); Neutrophils Percent Auto 75.7 % (50.0-70.0); Platelet Count Result 99 K/mm3 (150-420); Red Blood Count 4.65 M/mm3 (4.70-6.10); Red Cell Distribution Width 14.3 % (11.6-14.4); White Blood Count 14.1 K/mm3 (4.8-10.8)
[2024-08-29 18:37] LABS: Influenza A QL RT-PCR Negative (Negative); Influenza B QL RT-PCR Negative (Negative); RSV RNA, RT-PCR Negative (Negative)
[2024-08-29 18:52] LABS: Alanine Aminotransferase 149 U/L (16-63); Albumin Level 2.6 g/dL (3.4-5.0); Alkaline Phosphatase 113 U/L (46-116); Anion Gap 13 mmol/L (4-12); Aspartate Amino Transferase 67 U/L (15-37); Blood Urea Nitrogen 19 mg/dL (7-18); Calcium 7.4 mg/dL (8.5-10.1); Carbon Dioxide 19 mmol/L (21-32); Chloride 95 mmol/L (98-108); Estimated CRCL calculation 91 ml/min; Estimated Glomerular Filt Rate > 60; Glucose 126 mg/dL (70-99); Osmolality Calculated 268 mOsm/kg (285-295); Sodium 127 mmol/L (136-145)
[2024-08-29 18:57] LABS: Lactic Acid Reflex 1.6 mmol/L (0.4-2.0)
[2024-08-29] MEDS: MORPHINE SULFATE (*CRX) 4 MG/ML INJ IV PUSH ×2 (19:08→21:58)
[2024-08-29] MEDS: SODIUM CHLORIDE 0.9% IV 1,000 ML 999 ML IV CONT (19:10)
[2024-08-29] MEDS: PIPERACILLN/TAZ 3.375GM/NS50ML 3.375 GM/50 ML BAG IVPB (19:11)
--- NOTE | 2024-08-29 19:15 | PC.NURSE ---
assumed care. report received from marylu sigala. patient is resting on stretcher. is at the bedside. call light in reach
--- NOTE | 2024-08-29 19:48 | PC.NURSE ---
1914 report to sánchez rn.
--- NOTE | 2024-08-29 20:07 | PC.NURSE ---
family member asked about transfer to [facility]. informed family member that Dr Velasco would be down to speak with them about transfer or discharge
--- NOTE | 2024-08-29 21:35 | PC.NURSE ---
patient reports nausea. dr flowers notified
[2024-08-29] MEDS: ONDANSETRON INJ 4 MG/2 ML VIAL IV PUSH (21:40)
--- NOTE | 2024-08-29 21:48 | PC.NURSE ---
urine taken to lab
--- NOTE | 2024-08-29 21:51 | PC.NURSE ---
patient is requesting pain medications. ER provider notified
[2024-08-29 22:25] LABS: Add Urine Microscopic? YES; Appearance Urine Clear (Clear); Bilirubin Urine Negative (Negative); Blood Urine Negative (Negative); Color Urine Yellow (Yellow); Glucose Urine UA 3+ (Negative); Ketones Urine 2+ (Negative); Leukocyte Esterase Ur Negative LEU/UL (Negative); Nitrate Urine Negative (Negative); Protein Urine Trace (Negative); Urobilinogen Urine 0.2 mg/dL (0.2-1.0); pH Urine 5.5 (5.0-8.0)
[2024-08-29 22:30] LABS: Bacteria Urine None seen /hpf; RBC Urine 0-2 /hpf (0-2); Squamous Epithelial Cell Urine None seen /hpf (Few); WBC Urine 0-3 /hpf (0-3)
--- NOTE | 2024-08-29 22:34 | ECG_ITS ---
Test Date: 2024-08-29 22:55:25 Measurements Intervals [place] Rate: 89 P: 69 MA: 156 QRS: 31 QRSD: 83 T: 63 QT: 353 QTc: 432 Interpretive Statements SINUS RHYTHM LEFT ATRIAL ENLARGEMENT BASELINE ARTIFACT- I, II, AVR, AVL, V1 BORDERLINE ECG No previous ECG available for comparison Electronically Signed On 08-30-2024 08:10:12 CDT by Mika Hidalgo D.O.
[2024-08-29 22:46] LABS: Acetone Negative (Negative)
[2024-08-29 22:57] LABS: NT Pro B Type Natriuretic Pept 1157 pg/mL (0-125); Troponin I 10.5 ng/L (0.00-60.4)
[2024-08-30] VITALS (14 sets, daily range): BP systolic 125–149; BP diastolic 72–86; PULSE 75–102; RESP 12–20; TEMP 36.3–38.4; O2SAT 88–96
[2024-08-30] MEDS: HYDROcodone/acetaminophen (*CRX) 5-325 MG TABLET 1 TAB PO ×3 (00:28→13:26)
[2024-08-30] MEDS: carvediloL 12.5 MG TABLET PO ×3 (00:28→21:21)
[2024-08-30] MEDS: ACYCLOVIR 200 MG CAPSULE 400 MG PO ×3 (00:28→16:39)
[2024-08-30] MEDS: HYDROCORTISONE SODIUM SUCCINATE 100 MG/2 ML VIAL IV PUSH (00:29)
[2024-08-30] MEDS: SODIUM CHLORIDE 0.9% IV 1,000 ML 150 ML IV CONT ×2 (00:30→09:46)
[2024-08-30] MEDS: PIPERACILLN/TAZ 3.375GM/NS50ML 3.375 GM/50 ML BAG IVPB ×3 (00:30→17:15)
[2024-08-30] MEDS: MORPHINE SULFATE (*CRX) 4 MG/ML INJ IV PUSH ×3 (02:44→17:13)
[2024-08-30 06:35] LABS: Hematocrit 37.5 % (40.0-54.0); Hemoglobin 12.6 g/dL (14.0-18.0); Immature Platelet Fraction Pct 5.4 % (1.0-7.0); Mean Corpuscular HGB Conc 33.6 g/dL (32-36); Mean Corpuscular Hemoglobin 30.3 pg (27.0-31.0); Mean Corpuscular Volume 90.1 fL (78.0-102.0); Platelet Count Result 83 K/mm3 (150-420); Red Blood Count 4.16 M/mm3 (4.70-6.10); White Blood Count 11.5 K/mm3 (4.8-10.8)
[2024-08-30 06:48] LABS: Alanine Aminotransferase 112 U/L (16-63); Albumin Level 2.2 g/dL (3.4-5.0); Alkaline Phosphatase 94 U/L (46-116); Anion Gap 12 mmol/L (4-12); Aspartate Amino Transferase 45 U/L (15-37); Blood Urea Nitrogen 17 mg/dL (7-18); Calcium 6.7 mg/dL (8.5-10.1); Carbon Dioxide 21 mmol/L (21-32); Chloride 98 mmol/L (98-108); Estimated CRCL calculation 113 ml/min; Estimated Glomerular Filt Rate > 60; Glucose 138 mg/dL (70-99); Osmolality Calculated 275 mOsm/kg (285-295); Potassium 3.7 mmol/L (3.5-5.1); Sodium 131 mmol/L (136-145)
--- NOTE | 2024-08-30 06:55 | PC.NURSE ---
Pt to radiology for chest x-ray per bed.
[2024-08-30 07:21] LABS: Band Neutrophils Percent 2 % (0-6); Basophils Percent Manual 0 % (0-1); Eosinophils Percent Manual 0 % (1-6); Lymphocytes Absolute Manual 1.26 K/mm3 (1.1-4.5); Lymphocytes Percent Manual 11 % (18-44); Monocytes Absolute Manual 1.49 K/mm3 (0.1-0.90); Monocytes Percent Manual 13 % (3-9); Neutrophils Absolute Manual 8.74 K/mm3 (1.3-6.7); Neutrophils Percent Manual 74 % (46-73); Platelet Estimate Decreased (Adequate); Total Cells Counted 100
[2024-08-30 08:05] LABS: Glucose Point of Care 165 mg/dl (65-105)
[2024-08-30] MEDS: INSULIN HUMAN LISPRO (*BKC) 1,000 UNITS/10 ML VIAL 5 UNITS SUB-Q ×2 (08:24→12:30)
--- NOTE | 2024-08-30 09:26 | PM.IMHP ---
H&P: HPI History of Present Illness Date/Time: 08/30/24 09:26 Chief Complaint: fever, body aches Narrative: This is a 43-year-old male with a past medical history significant for multiple myeloma diagnosed in May of 2024 following Oncology at [facility], hepatitis-C following hepatology at [facility], with recent right chest Port-A-Cath placement for chemotherapy. Patient states he has received 1 dose of chemotherapy since port placement. He is also has a history of IV drug use of methamphetamine. He reports he was sober for 11 years but when he found out that he had cancer he relapsed. He states that his last meth use was 3 days ago. He denies IV drug use since 2020. He states he smokes meth. When asked if he injected into his port he adamantly denies. The patient provides the following history with his Cira jean baptiste at the bedside. He was at work on 08/28 and started to feel bad with body aches, fever, and chills he went home and went to sleep. Yesterday he continued to feel worse and was having fevers of 102.9. Because of this he presented to the emergency room. He also reports diarrhea, abdominal pain, sub sternal chest pain, anxiety, and an episode of dizziness when he was trying to take a warm shower. He reports the diarrhea does not have blood present. He is dyspneic at rest and is currently requiring 4 L of oxygen. Since admission he has noted that he is having pain and edema in his right hand. In the emergency room labs were significant for white blood cell count 14.1, normal hemoglobin 14.2, platelets 99, neutrophils 75.7%, sodium 127, chloride 95, CO2 19, anion gap 13, BUN 19, creatinine 1.18, glucose 126, calcium 7.4, T bili 2.0, AST 67, ALT 149, BNP 1157, high sensitivity troponin 10.5, and albumin 2.2. UA showed clear yellow urine, trace protein, 3+ glucose, and 2+ ketones. C diff was negative. quad viral screen negative. Chest x-ray was completed in the emergency room and showed mild opacity in the bilateral lower lung zones. the patient was started on Zosyn by the ER provider and admitted to the floor. Review of Systems Review of Systems: All systems reviewed & are unremarkable except as noted in HPI and below PMFSH Past Medical History Medical History Hepatitis C Migraine Multiple myeloma Surgical History Surgical History Hx of cholecystectomy S/P appendectomy Family History Family History Other Hypertension Social History Social History Social History: 43-year-old man who lives with his Cira gusman who he deems his emergency contact. He reports a history of IV drug use with last IV drug use in 2020. He is a current methamphetamine user. Smoking status: Current every day smoker Tobacco type: cigarettes Second hand tobacco smoke exposure: Yes Alcohol intake: never Alcohol use details: per his reports Substance use: current Substance use type: marijuana, amphetamines and painkillers Last use: 08/27 Do You Feel Safe in your Home?: Yes Lack of Transportation: No Lack of Food: Never True Current Housing: I Have Housing Concerned About Future Housing: No Difficulty Paying Gas/Electric Bills: No Difficulty Paying for Meds: No Currently Unemployed: No Education: High School Diploma/GED Difficulty w/ Childcare or Family Care: No Living arrangements: with family Occupation/Education: occupation Spiritual care concerns: No Meds Home Medications and Allergies Home Medications Medication Instructions Recorded Confirmed Type Adult Aspirin EC Low Strength 81 mg PO DAILY 08/29/24 08/29/24 History acetaminophen 300 mg-codeine 30 mg 300 tablet PO Q6H PRN Pain, 08/29/24 08/29/24 History tablet Moderate acyclovir 400 mg tablet 400 mg PO BID 08/29/24 08/29/24 History carvedilol 12.5 mg tablet 12.5 mg PO BID 08/29/24 08/29/24 History dexamethasone 4 mg tablet 4 mg PO WEEKLY 08/29/24 08/29/24 History empagliflozin 25 mg tablet 25 mg PO DAILY 08/29/24 08/29/24 History (Jardiance) insulin aspart U-100 100 unit/mL 5 unit subcut TID 08/29/24 08/29/24 History (3 mL) subcutaneous pen insulin glargine-yfgn 100 unit/mL 20 unit subcut DAILY 08/29/24 08/29/24 History (3 mL) subcutaneous pen lenalidomide 25 mg capsule 25 mg PO WEEKLY 08/29/24 08/29/24 History (Revlimid) methocarbamol 500 mg tablet 750 mg PO TID PRN Pain (Scale 08/29/24 08/29/24 History Score 7-10) ondansetron HCl 8 mg tablet 8 mg PO Q6H PRN Nausea 08/29/24 08/29/24 History prochlorperazine maleate 10 mg 10 mg PO Q6H PRN Nausea 08/29/24 08/29/24 History tablet sennosides 8.6 mg tablet (senna) 17.2 mg PO DAILY PRN Constipation 08/29/24 08/29/24 History Allergies Allergy/AdvReac Type Severity Reaction Status Date / Time No Known Allergies Allergy Verified 12/06/23 01:45 Vital Signs Vital Signs - 24 hr 08/29/24 17:52 08/29/24 18:20 08/29/24 19:47 Temperature 101.7 F H 101.4 F H Pulse Rate 93 90 88 Respiratory Rate 18 18 20 Blood Pressure 146/80 H 146/80 H 121/62 Pulse Oximetry 95 95 94 Oxygen Delivery Room Air Room Air Room Air 08/29/24 20:00 08/29/24 20:15 08/29/24 20:30 Temperature Pulse Rate Respiratory Rate Blood Pressure 124/61 128/65 124/66 Pulse Oximetry 91 91 95 Oxygen Delivery 08/29/24 20:31 08/29/24 20:45 08/29/24 21:00 Temperature 100.3 F H Pulse Rate Respiratory Rate Blood Pressure 130/66 138/77 Pulse Oximetry 94 91 93 Oxygen Delivery Room Air Room Air 08/29/24 21:15 08/29/24 21:16 08/29/24 21:30 Temperature Pulse Rate 89 Respiratory Rate Blood Pressure 150/85 H 153/78 H Pulse Oximetry 94 96 94 Oxygen Delivery Room Air 08/29/24 21:47 08/29/24 22:00 08/29/24 22:01 Temperature Pulse Rate 91 97 Respiratory Rate 18 18 Blood Pressure 157/91 H 157/88 H Pulse Oximetry 92 92 92 Oxygen Delivery Room Air 08/29/24 22:15 08/29/24 23:00 08/29/24 23:15 Temperature Pulse Rate 91 88 Respiratory Rate 18 18 Blood Pressure 147/78 H 136/70 141/76 H Pulse Oximetry 90 91 90 Oxygen Delivery 08/29/24 23:30 08/30/24 00:00 08/30/24 00:00 Temperature 100.3 F H 101.1 F H Pulse Rate 91 95 Respiratory Rate 20 Blood Pressure 140/72 Pulse Oximetry 91 Oxygen Delivery Room Air 08/30/24 00:28 08/30/24 04:00 08/30/24 04:00 Temperature 97.4 F L Pulse Rate 95 82 82 Respiratory Rate 16 Blood Pressure 125/72 Pulse Oximetry 92 Oxygen Delivery Room Air Exam Narrative: General: appears uncomfortable, diaphoretic, Respiratory: breathing is labored with even chest rise/fall, lungs are clear without wheezing. on 4 L NC. Cardiovascular: Rate and rhythm regular, normal s1s2, no murmur Abdomen: Soft, round, non-tender, active bowel sounds Extremities: No cyanosis. No clubbing. Right hand with edema without erythema and + warmth. Pulses 2/2. Limited ROM to right hand. Neuro: A&O x 4, anxious Skin: Warm, dry, intact. Right chest port-a-cath with erythema, warmth, and purulent drainage present. H&P: Results Labs Labs: Short CBC 08/29/24 08/30/24 Range/Units 18:31 06:26 WBC 14.1 H 11.5 H (4.8-10.8) K/mm3 Hgb 14.2 12.6 L (14.0-18.0) g/dL Hct 43.2 37.5 L (40.0-54.0) % Plt Count 99 L 83 L (150-420) K/mm3 BMP 08/29/24 08/30/24 18:31 06:26 Sodium 127 L 131 L Potassium 4.0 3.7 Chloride 95 L 98 Carbon Dioxide 19 L 21 BUN 19 H 17 Creatinine 1.18 0.96 Glucose 126 H 138 H Calcium 7.4 L 6.7 L Cardiac Enzymes 08/29/24 Range/Units 22:37 Troponin I 10.5 (0.00-60.4) ng/L Liver Function 11/01/24 11/02/24 Range/Units 18:31 06:26 Total Bilirubin 2.0 H 1.0 (0.00-1.00) mg/dL AST 67 H 45 H (15-37) U/L ALT 149 H 112 H (16-63) U/L Alkaline Phosphatase 113 94 (46-116) U/L Albumin 2.6 L 2.2 L (3.4-5.0) g/dL Urine 08/29/24 Range/Units 22:25 Urine Color Yellow (Yellow) Urine Appearance Clear (Clear) Urine pH 5.5 (5.0-8.0) Ur Specific Plain 1.020 (1.010-1.020) Urine Protein Trace H (Negative) Urine Glucose (UA) 3+ H (Negative) Assessment and Plan Assessment and plan (1) Acute hypoxic respiratory failure: Code(s): J96.01 - Acute respiratory failure with hypoxia Status: Acute Assessment and Plan: patient with acute oxygen desaturation to 88% air. Patient was placed on 2 L nasal cannula and oxygen saturation improved to 92%. CTA chest ordered and shows pulmonary emboli in the segmental and subsegmental pulmonary arteries of the left upper lobe, multiple scattered bilateral pulmonary nodules measuring up to 2 cm concerning for pneumonia or metastatic disease or possibility of septic emboli, Mild pulmonary edema with small bilateral pleural effusions. Patient is sating 90% on 2 L. Increased oxygen to 4 L nasal cannula. Titrate to maintain oxygen greater than 92% placed on continuous pulse ox, currently on telemetry patient received 2 L normal saline emergency room and started on a drip at 150 mL an hour. He is positive 2.6 L. will give IV Lasix 40 mg 1 time dose and hold further IV fluids heparin drip started per PE protocol, monitor platelets given thrombocytopenia, bleeding precautions quad viral screen negative (2) Sepsis: Code(s): A41.9 - Sepsis, unspecified organism Status: Acute Assessment and Plan: Febrile 101.7, lactic 1.6, white count 14.1, T bili elevated 2.0 on admission. Suspected source of infection is infected right port-a-cath. patient was initially started on Zosyn. Vancomycin has been added. CRP ordered, procalcitonin is a send out Blood cultures were drawn and are pending patient received 2 L normal saline bolus in the emergency room and was started on maintenance drip at 150 mL/hour anion gap metabolic acidosis closed after fluid resuscitation Tylenol for fever (3) Infection due to Port-A-Cath: Code(s): T80.219A - Unspecified infection due to central venous catheter, initial encounter Status: Acute Assessment and Plan: right chest Port-A-Cath recently placed in the last month at [facility]. Patient reports erythema and redness around port with purulent drainage. High likelihood infected Port-A-Cath requiring transfer to higher level care. Patient has likely septic emboli on CTA chest and concern for septic emboli to right hand given edema and pain present. Patient has good cap refill in upper and lower pulses are 2/2. Neurovascular checks q.4 hours, neuro checks Q shift [facility] transfer line has been notified and patient was accepted by hospitalist Dr. Mcdermott awaiting bed placement. (4) Multiple myeloma: Code(s): C90.00 - Multiple myeloma not having achieved remission Status: Acute Assessment and Plan: Follows with Oncology at [facility]. Multiple myeloma the lumbar spine. Patient reports he has received 1 dose of IV chemotherapy and is on lenalidomide 25 mg PO weekly. patient is immunosuppressed but no concern for neutropenia at this time Hold oral chemotherapy medication in setting of infection (5) Hospital-acquired pneumonia: Code(s): J18.9 - Pneumonia, unspecified organism; Y95 - Nosocomial condition Status: Acute Assessment and Plan: patient has had a recent hospitalization in the last 30 days. Concerns for possible pneumonia on imaging. He is having dyspnea, hypoxia, fever, and leukocytosis. Patient was started on HAP treatment with vanc and Zosyn add DuoNeb q.6 blood cultures pending, sputum culture if able urine Legionella and pneumococcal pending, mycoplasma IgM pending (6) Diabetes: Code(s): E11.9 - Type 2 diabetes mellitus without complications Status: Acute Assessment and Plan: unknown hemoglobin A1c. Med rec shows patient usually receives glargine 20 units daily and aspart 5 units t.i.d. with meals. Add hemoglobin A1c hold Lantus for now given poor oral intake. fasting glucose on a.m. labs was 138. A.c. HS Accu-Cheks, high-dose sliding scale given BMI greater than 30 hypoglycemia protocol ordered Quality VTE Prophylaxis VTE prophylaxis: pharmacologic ordered Hospitalist [facility] Advance Care Plan I have confirmed that the patient's Advanced Care Plan is present, code status is documented, or surrogate decision maker is listed in patient medical record.: Yes Medication Reconciliation I have utilized all available resources to obtain, update and review the patients current medications (includes all prescriptions, OTC, herbals, cannabis, and nutritional supplements).: Yes
[2024-08-30] MEDS: EMPAGLIFLOZIN 25 MG TABLET PO (09:33)
[2024-08-30] MEDS: ASPIRIN 81 MG ENTERIC TABLET PO (09:35)
[2024-08-30] MEDS: INSULIN GLARGINE (*BKC) 1,000 UNITS/10 ML VIAL 20 UNITS SUB-Q (10:25)
[2024-08-30] MEDS: HYDROcodone/acetaminophen (*CRX) 10-325 MG TABLET 1 TAB PO ×2 (10:26→21:21)
[2024-08-30] MEDS: VANCOMYCIN 1,250 MG/NS 250 ML 1,250 MG/250 ML BAG 166.67 MG IVPB ×2 (11:30→14:04)
[2024-08-30 12:12] LABS: Glucose Point of Care 302 mg/dl (65-105)
[2024-08-30 12:54] LABS: Toxigenic C. Diff NEGATIVE (NEGATIVE)
--- NOTE | 2024-08-30 13:15 | ECG_ITS ---
Test Date: 2024-08-30 13:37:04 Measurements Intervals [place] Rate: 87 P: 68 OH: 152 QRS: 26 QRSD: 98 T: 43 QT: 357 QTc: 430 Interpretive Statements SINUS RHYTHM LEFT ATRIAL ENLARGEMENT BORDERLINE ST-T WAVE ABNORMALITY- INFERIOR LEADS BASELINE ARTIFACT- I, II, III, AVR, AVL, AVF, V1-V6 BORDERLINE ECG Compared to ECG 08/29/2024 22:55:25 NO SIGNIFICANT CHANGE Electronically Signed On 08-30-2024 17:12:51 CDT by Mika Hidalgo D.O.
[2024-08-30 13:19] LABS: MRSA (PCR) NOT DETECTED (NOT DETECTE)
[2024-08-30 13:34] LABS: Troponin I 18.3 ng/L (0.00-60.4)
[2024-08-30] MEDS: LOPERAMIDE HCL 2 MG CAPSULE PO (13:41)
[2024-08-30] MEDS: LORazepam (*CRX) 0.5 MG TABLET PO (13:41)
[2024-08-30] MEDS: ACETAMINOPHEN 325 MG TABLET PO (14:02)
--- NOTE | 2024-08-30 16:13 | PC.NURSE ---
the placement incision for the right chest port is draining green fluid, the skin is red and warm. The skin covering the port is red and warm. PAPERHANGER ASSISTANT is aware.
--- NOTE | 2024-08-30 16:17 | PC.NURSE ---
Pt did not get the piperacillian because the Vancomyacin took 3 hours to infuse.
[2024-08-30 16:44] LABS: Glucose Point of Care 95 mg/dl (65-105)
[2024-08-30] MEDS: HEPARIN SOD/D5W 100 UNITS/ML 25,000 UNITS/250 ML BAG 15 UNITS IV CONT (17:48)
[2024-08-30] MEDS: FUROSEMIDE INJ 40 MG/4 ML VIAL IV PUSH (17:48)
[2024-08-30] MEDS: IPRATROPIUM 0.5 MG/ALBUTEROL SULFATE 2.5 MG AMPUL.NEB 3 ML INHALATION (18:20)
[2024-08-30] MEDS: SACCHAROMYCES BOULARDII 250 MG CAPSULE PO (18:22)
[2024-08-30] MEDS: ACETAMINOPHEN 325 MG TABLET 650 MG PO (18:38)
--- NOTE | 2024-08-30 18:40 | PC.NURSE ---
Patient reporting he is cold, shivers/chattering noted. Temperature checked, patient running temp of 100.0. Tylenol given per order.
[2024-08-30 18:47] LABS: Amphetamine Screen Urine Negative (Negative); Barbiturate Screen Urine Negative (Negative); Benzodiazepines Screen Urine Negative (Negative); Cannabinoid Screen Urine Positive (Negative); Cocaine Screen Urine Negative (Negative); Methadone Screen Urine Negative (Negative); Opiate Screen Urine Positive (Negative); Phencyclidine Screen Urine Negative (Negative)
[2024-08-30] MEDS: ONDANSETRON INJ 4 MG/2 ML VIAL IV PUSH (19:51)
[2024-08-30 20:42] LABS: Glucose Point of Care 189 mg/dl (65-105)
[2024-08-30] MEDS: hydrOXYzine HCL 25 MG TABLET PO (22:49)
[2024-08-30] MEDS: VANCOMYCIN 1,500 MG/NS 500 ML 1,500 MG/500 ML BAG 250 MG IVPB (22:50)
[2024-08-31] VITALS (11 sets, daily range): BP systolic 123–152; BP diastolic 72–83; PULSE 74–98; RESP 14–20; TEMP 36.6–37.7; O2SAT 93–96
--- NOTE | 2024-08-31 01:21 | PC.NURSE ---
Lab attempted 2x to draw blood from pt w/o success. Pt is refusing to have labs drawn at this time and would like to sleep. REALTIME REPORTER notified of situation and REALTIME REPORTER verbalized to keep heparin drip at the same rate currently.
--- NOTE | 2024-08-31 01:22 | PC.NURSE ---
[facility] contacted facility to see if pt needed to be on waiting list still. This RN communicated the pt's condition and reiterated that the pt sees oncology at [facility]. Pt is still on transfer waiting list, and a note has been applied to the wait list for pt.
[2024-08-31] MEDS: PIPERACILLN/TAZ 3.375GM/NS50ML 3.375 GM/50 ML BAG IVPB ×4 (02:00→17:09)
[2024-08-31] MEDS: HYDROcodone/acetaminophen (*CRX) 10-325 MG TABLET 1 TAB PO ×3 (03:15→12:55)
[2024-08-31 04:30] LABS: Glucose Point of Care 171 mg/dl (65-105)
--- NOTE | 2024-08-31 04:45 | PC.NURSE ---
Ami Abbott NP, notified of changes in pt's condition. New orders received and noted for labs, CXR, lasix and bedrest activity only.
[2024-08-31] MEDS: FUROSEMIDE INJ 40 MG/4 ML VIAL IV PUSH (05:24)
--- NOTE | 2024-08-31 05:27 | PC.NURSE ---
Pt given lasix 40 mg IVP as ordered.
[2024-08-31 06:30] LABS: Hematocrit 39.3 % (40.0-54.0); Mean Corpuscular HGB Conc 33.1 g/dL (32-36); Mean Corpuscular Hemoglobin 29.4 pg (27.0-31.0); Mean Corpuscular Volume 88.9 fL (78.0-102.0); Platelet Count Result 101 K/mm3 (150-420); Red Blood Count 4.42 M/mm3 (4.70-6.10); Red Cell Distribution Width 13.8 % (11.6-14.4); White Blood Count 8.4 K/mm3 (4.8-10.8)
[2024-08-31] MEDS: hydrOXYzine HCL 25 MG TABLET PO (06:30)
[2024-08-31] MEDS: ACETAMINOPHEN 325 MG TABLET 650 MG PO (06:31)
[2024-08-31] MEDS: IPRATROPIUM 0.5 MG/ALBUTEROL SULFATE 2.5 MG AMPUL.NEB 3 ML INHALATION ×3 (06:34→14:07)
[2024-08-31 06:41] LABS: Partial Thromboplastin Time 26.7 Sec (23.9-30.70)
[2024-08-31 07:00] LABS: Alanine Aminotransferase 111 U/L (16-63); Albumin Level 2.2 g/dL (3.4-5.0); Alkaline Phosphatase 88 U/L (46-116); Anion Gap 9 mmol/L (4-12); Aspartate Amino Transferase 66 U/L (15-37); Bilirubin,Total 1.2 mg/dL (0.00-1.00); Blood Urea Nitrogen 12 mg/dL (7-18); Calcium 6.8 mg/dL (8.5-10.1); Carbon Dioxide 27 mmol/L (21-32); Chloride 97 mmol/L (98-108); Estimated CRCL calculation 109 ml/min; Estimated Glomerular Filt Rate > 60; Glucose 133 mg/dL (70-99); Magnesium 2.8 mg/dL (1.8-2.4); Osmolality Calculated 277 mOsm/kg (285-295); Potassium 3.4 mmol/L (3.5-5.1); Sodium 133 mmol/L (136-145); Total Protein 5.8 g/dL (6.4-8.2)
[2024-08-31 07:05] LABS: CRP 14.8 mg/dL (0.0-0.9)
[2024-08-31 07:05] LABS: NT Pro B Type Natriuretic Pept 1403 pg/mL (0-125)
[2024-08-31 07:06] LABS: Troponin I 10.1 ng/L (0.00-60.4)
[2024-08-31 07:20] LABS: Hemoglobin A1C 7.2 % (<5.7)
[2024-08-31 08:05] LABS: Glucose Point of Care 216 mg/dl (65-105)
--- NOTE | 2024-08-31 08:19 | P.PNIM_ITS ---
Progress Note: A&P Assessment and Plan (1) Acute hypoxic respiratory failure: Code(s): J96.01 - Acute respiratory failure with hypoxia Status: Acute Assessment and Plan: patient with acute oxygen desaturation to 88% air. Patient was placed on 2 L nasal cannula and oxygen saturation improved to 92%. CTA chest ordered and shows pulmonary emboli in the segmental and subsegmental pulmonary arteries of the left upper lobe, multiple scattered bilateral pulmonary nodules measuring up to 2 cm concerning for pneumonia or metastatic disease or possibility of septic emboli, Mild pulmonary edema with small bilateral pleural effusions. * Patient is sating 90% on 2 L. Increased oxygen to 4 L nasal cannula. Titrate to maintain oxygen greater than 92% * placed on continuous pulse ox, currently on telemetry * patient received 2 L normal saline emergency room and started on a drip at 150 mL an hour. He is positive 2.6 L. Will give IV Lasix 40 mg 1 time dose and hold further IV fluids * heparin drip started per PE protocol, monitor platelets given thrombocytopenia, bleeding precautions * quad viral screen negative * Bed rest for now as he is having increased SOB and diaphoresis with exertion (2) Sepsis: Code(s): A41.9 - Sepsis, unspecified organism Status: Acute Assessment and Plan: Febrile 101.7, lactic 1.6, white count 14.1, T bili elevated 2.0 on admission. Suspected source of infection is infected right port-a-cath. * patient was initially started on Zosyn. Vancomycin has been added. * CRP ordered, procalcitonin is a send out * Blood cultures growing GPC clusters--on vanco---needs ANGELA * patient received 2 L normal saline bolus in the emergency room and was started on maintenance drip at 150 mL/hour * anion gap metabolic acidosis closed after fluid resuscitation * Tylenol for fever (3) Infection due to Port-A-Cath: Code(s): T80.219A - Unspecified infection due to central venous catheter, initial encounter Status: Acute Assessment and Plan: right chest Port-A-Cath recently placed in the last month at [facility]. Patient reports erythema and redness around port with purulent drainage. High likelihood infected Port-A-Cath requiring transfer to higher level care. Patient has likely septic emboli on CTA chest and concern for septic emboli to right hand given edema and pain present. * Patient has good cap refill in upper and lower pulses are 2/2. * Neurovascular checks q.4 hours, neuro checks Q shift * [facility] transfer line has been notified and patient was accepted by hospitalist Dr. Mcdermott awaiting bed placement, heme/oncology is also aware of patient * blood cultures are growing GPC in clusters * Patient needs ANGELA * WBC is improving with Vanco, Zosyn. Monitor renal function for developing GIL (4) Multiple myeloma: Code(s): C90.00 - Multiple myeloma not having achieved remission Status: Acute Assessment and Plan: Follows with Oncology at [facility]. Multiple myeloma the lumbar spine. Patient reports he has received 1 dose of IV chemotherapy and is on lenalidomide 25 mg PO weekly. * patient is immunosuppressed but no concern for neutropenia at this time * Hold oral chemotherapy medication in setting of infection (5) Hospital-acquired pneumonia: Code(s): J18.9 - Pneumonia, unspecified organism; Y95 - Nosocomial condition Status: Acute Assessment and Plan: patient has had a recent hospitalization in the last 30 days. Concerns for possible pneumonia on imaging. He is having dyspnea, hypoxia, fever, and leukocytosis. * Patient was started on HAP treatment with vanc and Zosyn * add DuoNeb q.6 * blood cultures show GPC in cluster, on vanco * urine Legionella and pneumococcal pending, mycoplasma IgM pending (6) Diabetes: Code(s): E11.9 - Type 2 diabetes mellitus without complications Status: Acute Assessment and Plan: unknown hemoglobin A1c. Med rec shows patient usually receives glargine 20 units daily and aspart 5 units t.i.d. with meals. * Add hemoglobin A1c * Resume Lantus today at decreased dose of 15 units * A.c. HS Accu-Cheks, high-dose sliding scale given BMI greater than 30 * hypoglycemia protocol ordered (7) Bacteremia: Code(s): R78.81 - Bacteremia Status: Acute Assessment and Plan: see above Subjective Date/time seen: 08/31/24 08:19 Interval history: Patient developed worsening shortness of breath and diaphoresis this morning with activity. He feels somewhat improved today but it comes and goes. I discussed with him the plan of care and need for port removal and ANGELA at [facility]. Review of Systems Review of Systems: All systems reviewed & are unremarkable except as noted in HPI and below Exam Narrative: General: appears uncomfortable, he still looks toxic but better than yesterday Respiratory: breathing is labored with even chest rise/fall, lungs are clear without wheezing. on 4 L NC. Cardiovascular: Rate and rhythm regular, normal s1s2, no murmur Abdomen: Soft, round, non-tender, active bowel sounds Extremities: No cyanosis. No clubbing. Right hand with edema without erythema and + warmth. Pulses 2/2. Limited ROM to right hand. Neuro: A&O x 4, anxious Skin: Warm, dry, intact. Right chest port-a-cath with erythema, warmth, and purulent drainage present. Erythema tracking in the left chest Objective Data Vital Signs Vital Signs: Vital Signs - 24 hr 08/30/24 09:34 08/30/24 14:02 08/30/24 12:00 Temperature 100.8 F H Pulse Rate 75 89 Respiratory Rate Blood Pressure Pulse Oximetry Oxygen Delivery Oxygen Flow Rate 08/30/24 12:00 08/30/24 15:15 08/30/24 16:30 Temperature 100.8 F H 98.9 F Pulse Rate 86 88 Respiratory Rate 14 Blood Pressure 133/86 Pulse Oximetry 94 Oxygen Delivery Nasal Cannula Oxygen Flow Rate 2 08/30/24 16:30 08/30/24 18:38 08/30/24 19:07 Temperature 97.3 F L 100.0 F H Pulse Rate 84 Respiratory Rate 18 Blood Pressure 142/83 H Pulse Oximetry 95 96 Oxygen Delivery Nasal Cannula Nasal Cannula Oxygen Flow Rate 2 4 08/30/24 19:38 08/30/24 20:00 08/30/24 20:00 Temperature 99.2 F 97.9 F Pulse Rate 81 102 H Respiratory Rate 19 Blood Pressure Pulse Oximetry 95 Oxygen Delivery Nasal Cannula Oxygen Flow Rate 4 08/31/24 00:00 08/31/24 00:00 08/31/24 04:00 Temperature 98.9 F Pulse Rate 78 77 85 Respiratory Rate 20 Blood Pressure Pulse Oximetry 93 Oxygen Delivery Nasal Cannula Oxygen Flow Rate 4 08/31/24 04:00 08/31/24 00:00 08/31/24 00:15 Temperature 97.9 F Pulse Rate 89 Respiratory Rate 20 Blood Pressure 123/83 Pulse Oximetry 95 95 96 Oxygen Delivery Nasal Cannula Oxygen Flow Rate 4 4 4 08/31/24 06:34 08/31/24 06:58 Temperature Pulse Rate 92 Respiratory Rate Blood Pressure Pulse Oximetry 93 95 Oxygen Delivery Oxygen Flow Rate 4 4 Intake/Output Intake/Output: Intake & Output 08/28/24 08/29/24 08/30/24 08/31/24 23:59 23:59 23:59 22:59 Intake Total 1050 4450 1750 Output Total 3200 1800 Balance 1050 1250 -50 Meds/Results Medications: Active Medications Generic Name Dose Route Start Last Admin Trade Name Freq PRN Reason Stop Dose Admin Acetaminophen 650 mg 08/29/24 22:54 08/31/24 06:31 Acetaminophen 325 Mg Tablet PO 650 mg Q4H PRN Administration Mild Pain (1-3) or Fever Hydrocodone Bitart/Acetaminophen 1 tab 08/29/24 22:54 08/30/24 13:26 Hydrocodone/Acetaminophen (*Crx) 5-325 Mg Tablet PO 1 tab Q4H PRN Administration Moderate Pain (4-6) Hydrocodone Bitart/Acetaminophen 1 tab 08/30/24 09:24 08/31/24 08:03 Hydrocodone/Acetaminophen (*Crx) 10-325 Mg Tablet PO 1 tab Q4H PRN Administration Pain Rated 7-10 Acyclovir 400 mg 08/29/24 22:55 08/30/24 16:39 Acyclovir 200 Mg Capsule PO 400 mg BID KRYSTA Administration Albuterol/Ipratropium 3 ml 08/30/24 18:30 08/31/24 06:34 Ipratropium 0.5 Mg/Albuterol Sulfate 2.5 Mg Ampul.Neb 3 Ml INHALATION 3 ml Q6HRT KRYSTA Administration Aspirin 81 mg 08/30/24 09:00 08/30/24 09:35 Aspirin 81 Mg Enteric Tablet PO 81 mg DAILY KRYSTA Administration Carvedilol 12.5 mg 08/29/24 22:55 08/30/24 21:21 Carvedilol 12.5 Mg Tablet PO 12.5 mg Q12HR KRYSTA Administration Dextrose 12.5 gm 08/30/24 18:13 Dextrose 50% 25 Gm/50 Ml Syringe IV PUSH PRN PRN Hypoglycemia Protocol Empagliflozin 25 mg 08/30/24 09:00 08/30/24 09:33 Empagliflozin 25 Mg Tablet PO 25 mg DAILY KRYSTA Administration Glucagon 1 mg 08/30/24 18:13 Glucagon For Inj 1 Mg Vial IM PRN PRN Hypoglycemia Protocol Glucose 15 gm 08/30/24 18:13 Glucose Oral Gel 15 Gm Of Glucse In 37.5 Gm Tube PO PRN PRN Hypoglycemia Protocol Heparin Sodium (Porcine) 7,500 units 08/30/24 17:00 Heparin Sodium 5,000 Units/Ml Vial IV PUSH PRN PRN aPTT less than 55 seconds Heparin Sodium (Porcine) 3,500 units 08/30/24 17:00 Heparin Sodium 5,000 Units/Ml Vial IV PUSH PRN PRN aPTT 55 - 70 seconds Hydroxyzine HCl 25 mg 08/30/24 14:35 08/31/24 06:30 Hydroxyzine Hcl 25 Mg Tablet PO 25 mg Q6H PRN Administration anxiety Sodium Chloride 1,000 mls @ 150 mls/hr 08/29/24 22:55 08/30/24 17:30 Normal Saline Iv IV CONT Not Given .Q6H40M KRYSTA Piperacillin/Tazobactam/Dextrose 3.375 gm in 50 mls @ 100 mls/hr 08/30/24 00:00 08/31/24 07:22 Zosyn 3.375 Gm/Ns 50 Ml IVPB Infused Q6H KRYSTA Infusion Vancomycin HCl 1,500 mg in 500 mls @ 250 mls/hr 08/30/24 22:00 08/31/24 02:00 Vancomycin 1,500 Mg/Ns 500 Ml IVPB Infused Q12H KRYSTA Infusion Heparin Sodium/Dextrose 25,000 units in 250 mls @ 15 mls/hr 08/30/24 17:00 08/30/24 17:48 Heparin Sodium/D5w 100 Units/Ml IV CONT 1,500 units/hr .[id number] KRYSTA 15 mls/hr Administration Protocol 1,500 UNITS/HR Dextrose 1,000 mls @ 100 mls/hr 08/30/24 18:13 Dextrose 5% 1,000 Ml IVPB PRN PRN Hypoglycemia Protocol Insulin Glargine 20 units 08/30/24 09:00 08/30/24 10:25 Insulin Glargine (*Bkc) 1,000 Units/10 Ml Vial SUB-Q 20 units DAILY KRYSTA Administration Insulin Human Lispro 4 - 8 units 08/31/24 08:00 Insulin Human Lispro (*Bkc) 1,000 Units/10 Ml Vial SUB-Q TIDWM [facility] Protocol Loperamide HCl 2 mg 08/30/24 13:04 08/30/24 13:41 Loperamide Hcl 2 Mg Capsule PO 2 mg PRN PRN Administration Diarrhea Morphine Sulfate 4 mg 08/30/24 09:24 08/30/24 17:13 Morphine Sulfate (*Crx) 4 Mg/Ml Inj IV PUSH 4 mg Q4H PRN Administration Breakthrough Pain Ondansetron HCl 4 mg 08/29/24 22:54 08/30/24 19:51 Ondansetron Inj 4 Mg/2 Ml Vial IV PUSH 4 mg Q6H PRN Administration Nausea And Vomiting Saccharomyces Boulardii 250 mg 08/30/24 18:10 08/30/24 18:22 Saccharomyces Boulardii 250 Mg Capsule PO 250 mg TID KRYSTA Administration Radiology Results: ITS Impressions Hand X-Ray 08/30/24 14:45 IMPRESSION: 1. Normal right hand radiographs. Chest CTA 08/30/24 15:17 IMPRESSION: 1. Suggestion of possible pulmonary emboli in the segmental and subsegmental pulmonary arteries of the left upper lobe. Evaluation is however limited in this region by respiratory motion artifact. 2. Multiple scattered bilateral pulmonary nodules measuring up to 2 cm for which differential would include pneumonia or metastatic disease. Appearance of a few of the nodules however also raises possibility of septic emboli. Correlate for signs/symptoms of bacteremia. 3. Mild pulmonary edema with very small bilateral pleural effusions. Abdomen/Pelvis CT 08/30/24 15:35 IMPRESSION: 1. Fluid in the rectum consistent with nonspecific diarrhea. No other acute intra-abdominal/pelvic process. 2. Multiple nodules scattered throughout the visualized lower lungs as described in further detail on prior chest CT. Differential would include pneumonia including septic emboli or metastatic disease. 3. Very small bilateral pleural effusions. 4. Indeterminate mixed lytic and sclerotic lesion at the left posterior iliac spine with no discernible interval change since 06/02/2024 which favors a benign etiology. The time since the prior study however remains relatively short and there is a second indeterminate subtle sclerotic lesion at L5. Would recommend correlation with any prior outside imaging if available. Otherwise would consider further evaluation with and postcontrast MRI and/or bone scan for further evaluation. Chest X-Ray 08/31/24 07:35 IMPRESSION: 1. Mild bilateral opacities with lower lung predominance which on CT from one day prior corresponding to combination of atelectasis and scattered nodular opacities which could represent pneumonia or metastatic disease. 2. Pulmonary vascular congestion without nelia pulmonary edema. Labs Labs: Laboratory Results - last 24 hr 08/30/24 08/30/24 08/30/24 06:26 11:57 12:03 WBC RBC Hgb Hct MCV MCH MCHC RDW Plt Count MPV Immature Gran % (Auto) Neut % (Auto) Lymph % (Auto) [place] % (Auto) Eos % (Auto) Baso % (Auto) Lymph # (Auto) [place] # (Auto) Eos # (Auto) Baso # (Auto) Abs Immat Gran (auto) Absolute Neuts (auto) Absolute Nucleated RBC Nucleated RBC % APTT Sodium Potassium Chloride Carbon Dioxide Anion Gap BUN Creatinine Estim Creat Clear Calc Estimated GFR Glucose POC Capillary Glucose Hemoglobin A1c Calculated Osmolality Calcium Magnesium Total Bilirubin AST ALT Alkaline Phosphatase Troponin I 18.3 C-Reactive Protein NT-Pro-B Natriuret Pep Total Protein Albumin Nasal MRSA (PCR) Not detected Urine Opiates Screen Urine Methadone Screen Ur Barbiturates Screen Ur Phencyclidine Scrn Ur Amphetamine Screen U Benzodiazepines Scrn Urine Cocaine Screen U Cannabinoids Screen C. difficile (PCR) Negative 08/30/24 08/30/24 08/30/24 12:05 16:39 18:04 WBC RBC Hgb Hct MCV MCH MCHC RDW Plt Count MPV Immature Gran % (Auto) Neut % (Auto) Lymph % (Auto) [place] % (Auto) Eos % (Auto) Baso % (Auto) Lymph # (Auto) [place] # (Auto) Eos # (Auto) Baso # (Auto) Abs Immat Gran (auto) Absolute Neuts (auto) Absolute Nucleated RBC Nucleated RBC % APTT Sodium Potassium Chloride Carbon Dioxide Anion Gap BUN Creatinine Estim Creat Clear Calc Estimated GFR Glucose POC Capillary Glucose 302 H 95 Hemoglobin A1c Calculated Osmolality Calcium Magnesium Total Bilirubin AST ALT Alkaline Phosphatase Troponin I C-Reactive Protein 14.8 H NT-Pro-B Natriuret Pep Total Protein Albumin Nasal MRSA (PCR) Urine Opiates Screen Urine Methadone Screen Ur Barbiturates Screen Ur Phencyclidine Scrn Ur Amphetamine Screen U Benzodiazepines Scrn Urine Cocaine Screen U Cannabinoids Screen C. difficile (PCR) 08/30/24 08/30/24 08/30/24 18:10 18:32 20:40 WBC RBC Hgb Hct MCV MCH MCHC RDW Plt Count MPV Immature Gran % (Auto) Neut % (Auto) Lymph % (Auto) [place] % (Auto) Eos % (Auto) Baso % (Auto) Lymph # (Auto) [place] # (Auto) Eos # (Auto) Baso # (Auto) Abs Immat Gran (auto) Absolute Neuts (auto) Absolute Nucleated RBC Nucleated RBC % APTT Sodium Potassium Chloride Carbon Dioxide Anion Gap BUN Creatinine Estim Creat Clear Calc Estimated GFR Glucose POC Capillary Glucose 189 H Hemoglobin A1c 7.2 H Calculated Osmolality Calcium Magnesium Total Bilirubin AST ALT Alkaline Phosphatase Troponin I C-Reactive Protein NT-Pro-B Natriuret Pep Total Protein Albumin Nasal MRSA (PCR) Urine Opiates Screen Positive A Urine Methadone Screen Negative Ur Barbiturates Screen Negative Ur Phencyclidine Scrn Negative Ur Amphetamine Screen Negative U Benzodiazepines Scrn Negative Urine Cocaine Screen Negative U Cannabinoids Screen Positive A C. difficile (PCR) 08/31/24 08/31/24 08/31/24 05:27 06:14 08:59 WBC 8.4 RBC 4.42 L Hgb 13.0 L Hct 39.3 L MCV 88.9 MCH 29.4 MCHC 33.1 RDW 13.8 Plt Count 101 L MPV 12.0 H Immature Gran % (Auto) Not Reportable Neut % (Auto) Not Reportable Lymph % (Auto) Not Reportable [place] % (Auto) Not Reportable Eos % (Auto) Not Reportable Baso % (Auto) Not Reportable Lymph # (Auto) Not Reportable [place] # (Auto) Not Reportable Eos # (Auto) Not Reportable Baso # (Auto) Not Reportable Abs Immat Gran (auto) Not Reportable Absolute Neuts (auto) Not Reportable Absolute Nucleated RBC Not Reportable Nucleated RBC % Not Reportable APTT 26.7 Sodium 133 L Potassium 3.4 L Chloride 97 L Carbon Dioxide 27 Anion Gap 9 BUN 12 Creatinine 1.00 Estim Creat Clear Calc 109 Estimated GFR > 60 Glucose 133 H POC Capillary Glucose 171 H 216 H Hemoglobin A1c Calculated Osmolality 277 L Calcium 6.8 L Magnesium 2.8 H Total Bilirubin 1.2 H AST 66 H ALT 111 H Alkaline Phosphatase 88 Troponin I 10.1 C-Reactive Protein NT-Pro-B Natriuret Pep 1403 H Total Protein 5.8 L Albumin 2.2 L Nasal MRSA (PCR) Urine Opiates Screen Urine Methadone Screen Ur Barbiturates Screen Ur Phencyclidine Scrn Ur Amphetamine Screen U Benzodiazepines Scrn Urine Cocaine Screen U Cannabinoids Screen C. difficile (PCR) Quality VTE Prophylaxis VTE prophylaxis: pharmacologic ordered
[2024-08-31] MEDS: INSULIN HUMAN LISPRO (*BKC) 1,000 UNITS/10 ML VIAL SUB-Q ×3 (08:20→17:31)
[2024-08-31] MEDS: ASPIRIN 81 MG ENTERIC TABLET PO (09:22)
[2024-08-31] MEDS: carvediloL 12.5 MG TABLET PO (09:22)
[2024-08-31] MEDS: EMPAGLIFLOZIN 25 MG TABLET PO (09:22)
[2024-08-31] MEDS: POTASSIUM CHLORIDE 20 MEQ ER TABLET 40 MEQ PO (09:23)
[2024-08-31] MEDS: SACCHAROMYCES BOULARDII 250 MG CAPSULE PO ×3 (09:23→17:09)
[2024-08-31] MEDS: ACYCLOVIR 200 MG CAPSULE 400 MG PO ×2 (09:23→17:09)
[2024-08-31] MEDS: HEPARIN SOD/D5W 100 UNITS/ML 25,000 UNITS/250 ML BAG 19 UNITS IV CONT (10:27)
[2024-08-31] MEDS: HEPARIN SODIUM 5,000 UNITS/ML VIAL 7500 UNITS IV PUSH (10:31)
[2024-08-31 10:37] LABS: Band Neutrophils Percent 0 % (0-6); Neutrophils Absolute Manual 5.71 K/mm3 (1.3-6.7); Neutrophils Percent Manual 68 % (46-73); Total Cells Counted 100
[2024-08-31 10:38] LABS: Eosinophils Absolute Manual 0.25 K/mm3 (0.02-0.50); Eosinophils Percent Manual 3 % (1-6); Large Platelets Present; Lymphocytes Absolute Manual 0.84 K/mm3 (1.1-4.5); Lymphocytes Percent Manual 10 % (18-44); Monocytes Absolute Manual 1.59 K/mm3 (0.1-0.90); Monocytes Percent Manual 19 % (3-9); Platelet Estimate Adequate (Adequate); Schistocytes None Seen; Toxic Granulation Present
[2024-08-31] MEDS: VANCOMYCIN 1,500 MG/NS 500 ML 1,500 MG/500 ML BAG 250 MG IVPB (11:09)
--- NOTE | 2024-08-31 11:22 | PC.NURSE ---
Spoke with Aretha at [facility], update on patient given. Aretha states that there are still no beds available. If one comes available they will call with an update.
[2024-08-31 12:12] LABS: Glucose Point of Care 352 mg/dl (65-105)
--- NOTE | 2024-08-31 16:49 | PM.TDS ---
Transfer Discharge Sum: Prov Provider Date of admission: 08/31/24 09:57 Primary care physician: Matthew Sorenson, PA Admitting clinician: Jcarlos Jiang MD DS: Admitting Diagnosis Discharge Date 08/31/24 Admitting Diagnosis fever, chills, body aches DS: Discharge Diagnosis Discharge Diagnosis (1) Acute hypoxic respiratory failure: Code(s): J96.01 - Acute respiratory failure with hypoxia Status: Acute Assessment and Plan: patient with acute oxygen desaturation to 88% air. Patient was placed on 2 L nasal cannula and oxygen saturation improved to 92%. CTA chest ordered and shows pulmonary emboli in the segmental and subsegmental pulmonary arteries of the left upper lobe, multiple scattered bilateral pulmonary nodules measuring up to 2 cm concerning for pneumonia or metastatic disease or possibility of septic emboli, Mild pulmonary edema with small bilateral pleural effusions. Patient is sating 90% on 2 L. Increased oxygen to 4 L nasal cannula. Titrate to maintain oxygen greater than 92% placed on continuous pulse ox, currently on telemetry patient received 2 L normal saline emergency room and started on a drip at 150 mL an hour. He is positive 2.6 L. Will give IV Lasix 40 mg 1 time dose and hold further IV fluids heparin drip started per PE protocol, monitor platelets given thrombocytopenia, bleeding precautions quad viral screen negative Bed rest for now as he is having increased SOB and diaphoresis with exertion (2) Sepsis: Code(s): A41.9 - Sepsis, unspecified organism Status: Acute Assessment and Plan: Febrile 101.7, lactic 1.6, white count 14.1, T bili elevated 2.0 on admission. Suspected source of infection is infected right port-a-cath. patient was initially started on Zosyn. Vancomycin has been added. CRP ordered, procalcitonin is a send out Blood cultures growing GPC clusters--on vanco---needs ANGELA patient received 2 L normal saline bolus in the emergency room and was started on maintenance drip at 150 mL/hour anion gap metabolic acidosis closed after fluid resuscitation Tylenol for fever (3) Infection due to Port-A-Cath: Code(s): T80.219A - Unspecified infection due to central venous catheter, initial encounter Status: Acute Assessment and Plan: right chest Port-A-Cath recently placed in the last month at [facility]. Patient reports erythema and redness around port with purulent drainage. High likelihood infected Port-A-Cath requiring transfer to higher level care. Patient has likely septic emboli on CTA chest and concern for septic emboli to right hand given edema and pain present. Patient has good cap refill in upper and lower pulses are 2/2. Neurovascular checks q.4 hours, neuro checks Q shift [facility] transfer line has been notified and patient was accepted by hospitalist Dr. Mcdermott awaiting bed placement, heme/oncology is also aware of patient blood cultures are growing GPC in clusters Patient needs ANGELA WBC is improving with Vanco, Zosyn. Monitor renal function for developing GIL (4) Multiple myeloma: Code(s): C90.00 - Multiple myeloma not having achieved remission Status: Acute Assessment and Plan: Follows with Oncology at [facility]. Multiple myeloma the lumbar spine. Patient reports he has received 1 dose of IV chemotherapy and is on lenalidomide 25 mg PO weekly. patient is immunosuppressed but no concern for neutropenia at this time Hold oral chemotherapy medication in setting of infection (5) Hospital-acquired pneumonia: Code(s): J18.9 - Pneumonia, unspecified organism; Y95 - Nosocomial condition Status: Acute Assessment and Plan: patient has had a recent hospitalization in the last 30 days. Concerns for possible pneumonia on imaging. He is having dyspnea, hypoxia, fever, and leukocytosis. Patient was started on HAP treatment with vanc and Zosyn. add DuoNeb q.6 blood cultures show GPC in cluster, on vanco urine Legionella and pneumococcal pending, mycoplasma IgM pending (6) Diabetes: Code(s): E11.9 - Type 2 diabetes mellitus without complications Status: Acute Assessment and Plan: unknown hemoglobin A1c. Med rec shows patient usually receives glargine 20 units daily and aspart 5 units t.i.d. with meals. Add hemoglobin A1c Resume Lantus today at decreased dose of 15 units. Initially was holding Lantus given poor oral intake. A.c. HS Accu-Cheks, high-dose sliding scale given BMI greater than 30 hypoglycemia protocol ordered (7) Bacteremia: Code(s): R78.81 - Bacteremia Status: Acute Assessment and Plan: see above Transfer Discharge Sum: Med Medications Active and Home Medications: Home Medications Adult Aspirin EC Low Strength 81 mg PO DAILY 08/29/24 [History Confirmed 08/29/24] acetaminophen 300 mg-codeine 30 mg tablet 300 tablet PO Q6H PRN Pain, Moderate 08/29/24 [History Confirmed 08/29/24] acyclovir 400 mg tablet 400 mg PO BID 08/29/24 [History Confirmed 08/29/24] carvedilol 12.5 mg tablet 12.5 mg PO BID 08/29/24 [History Confirmed 08/29/24] dexamethasone 4 mg tablet 4 mg PO WEEKLY 08/29/24 [History Confirmed 08/29/24] empagliflozin 25 mg tablet (Jardiance) 25 mg PO DAILY 08/29/24 [History Confirmed 08/29/24] insulin aspart U-100 100 unit/mL (3 mL) subcutaneous pen 5 unit subcut TID 08/29/24 [History Confirmed 08/29/24] insulin glargine-yfgn 100 unit/mL (3 mL) subcutaneous pen 20 unit subcut DAILY 08/29/24 [History Confirmed 08/29/24] lenalidomide 25 mg capsule (Revlimid) 25 mg PO WEEKLY 08/29/24 [History Confirmed 08/29/24] methocarbamol 500 mg tablet 750 mg PO TID PRN Pain (Scale Score 7-10) 08/29/24 [History Confirmed 08/29/24] ondansetron HCl 8 mg tablet 8 mg PO Q6H PRN Nausea 08/29/24 [History Confirmed 08/29/24] prochlorperazine maleate 10 mg tablet 10 mg PO Q6H PRN Nausea 08/29/24 [History Confirmed 08/29/24] sennosides 8.6 mg tablet (senna) 17.2 mg PO DAILY PRN Constipation 08/29/24 [History Confirmed 08/29/24] Active Medications Acetaminophen (Acetaminophen 325 Mg Tablet) 650 mg PO Q4H PRN PRN Reason: Mild Pain (1-3) or Fever Last Admin: 08/31/24 06:31 Dose: 650 mg Hydrocodone Bitart/Acetaminophen (Hydrocodone/Acetaminophen (*Crx) 5-325 Mg Tablet) 1 tab PO Q4H PRN PRN Reason: Moderate Pain (4-6) Last Admin: 08/30/24 13:26 Dose: 1 tab Hydrocodone Bitart/Acetaminophen (Hydrocodone/Acetaminophen (*Crx) 10-325 Mg Tablet) 1 tab PO Q4H PRN PRN Reason: Pain Rated 7-10 Last Admin: 08/31/24 12:55 Dose: 1 tab Acyclovir (Acyclovir 200 Mg Capsule) 400 mg PO BID [facility] Last Admin: 08/31/24 09:23 Dose: 400 mg Albuterol/Ipratropium (Ipratropium 0.5 Mg/Albuterol Sulfate 2.5 Mg Ampul.Neb 3 Ml) 3 ml INHALATION Q6HRT [facility] Last Admin: 08/31/24 14:07 Dose: 3 ml Aspirin (Aspirin 81 Mg Enteric Tablet) 81 mg PO DAILY [facility] Last Admin: 08/31/24 09:22 Dose: 81 mg Carvedilol (Carvedilol 12.5 Mg Tablet) 12.5 mg PO Q12HR [facility] Last Admin: 08/31/24 09:22 Dose: 12.5 mg Dextrose (Dextrose 50% 25 Gm/50 Ml Syringe) 12.5 gm IV PUSH PRN PRN; Protocol PRN Reason: Hypoglycemia Empagliflozin (Empagliflozin 25 Mg Tablet) 25 mg PO DAILY [facility] Last Admin: 08/31/24 09:22 Dose: 25 mg Glucagon (Glucagon For Inj 1 Mg Vial) 1 mg IM PRN PRN; Protocol PRN Reason: Hypoglycemia Glucose (Glucose Oral Gel 15 Gm Of Glucse In 37.5 Gm Tube) 15 gm PO PRN PRN; Protocol PRN Reason: Hypoglycemia Heparin Sodium (Porcine) (Heparin Sodium 5,000 Units/Ml Vial) 7,500 units IV PUSH PRN PRN PRN Reason: aPTT less than 55 seconds Last Admin: 08/31/24 10:31 Dose: 7,500 units Heparin Sodium (Porcine) (Heparin Sodium 5,000 Units/Ml Vial) 3,500 units IV PUSH PRN PRN PRN Reason: aPTT 55 - 70 seconds Hydroxyzine HCl (Hydroxyzine Hcl 25 Mg Tablet) 25 mg PO Q6H PRN PRN Reason: anxiety Last Admin: 08/31/24 06:30 Dose: 25 mg Sodium Chloride (Normal Saline Iv) 1,000 mls @ 150 mls/hr IV CONT .Q6H40M [facility] Last Admin: 08/30/24 17:30 Dose: Not Given Piperacillin/Tazobactam/Dextrose (Zosyn 3.375 Gm/Ns 50 Ml) 3.375 gm in 50 mls @ 100 mls/hr IVPB Q6H [facility] Last Infusion: 08/31/24 14:35 Dose: Infused Vancomycin HCl (Vancomycin 1,500 Mg/Ns 500 Ml) 1,500 mg in 500 mls @ 250 mls/hr IVPB Q12H KRYSTA Last Infusion: 08/31/24 13:10 Dose: Infused Heparin Sodium/Dextrose (Heparin Sodium/D5w 100 Units/Ml) 25,000 units in 250 mls @ 15 mls/hr IV CONT .[id number] KRYSTA; Protocol Last Admin: 08/31/24 10:27 Dose: 1,900 units/hr, 19 mls/hr Dextrose (Dextrose 5% 1,000 Ml) 1,000 mls @ 100 mls/hr IVPB PRN PRN; Protocol PRN Reason: Hypoglycemia Insulin Glargine (Insulin Glargine (*Bkc) 1,000 Units/10 Ml Vial) 15 units SUB-Q HS KRYSTA Insulin Human Lispro (Insulin Human Lispro (*Bkc) 1,000 Units/10 Ml Vial) 4 - 8 units SUB-Q TIDWM KRYSTA; Protocol Last Admin: 08/31/24 12:59 Dose: 8 units Loperamide HCl (Loperamide Hcl 2 Mg Capsule) 2 mg PO PRN PRN PRN Reason: Diarrhea Last Admin: 08/30/24 13:41 Dose: 2 mg Morphine Sulfate (Morphine Sulfate (*Crx) 4 Mg/Ml Inj) 4 mg IV PUSH Q4H PRN PRN Reason: Breakthrough Pain Last Admin: 08/30/24 17:13 Dose: 4 mg Ondansetron HCl (Ondansetron Inj 4 Mg/2 Ml Vial) 4 mg IV PUSH Q6H PRN PRN Reason: Nausea And Vomiting Last Admin: 08/30/24 19:51 Dose: 4 mg Saccharomyces Boulardii (Saccharomyces Boulardii 250 Mg Capsule) 250 mg PO TID KRYSTA Last Admin: 08/31/24 13:00 Dose: 250 mg Transfer Discharge Sum: Hosp Hospital Course Hospital course: This is a 43-year-old male with a past medical history significant for multiple myeloma diagnosed in May of 2024 following Oncology at [facility], hepatitis-C following hepatology at [facility], with recent right chest Port-A-Cath placement for chemotherapy. Patient states he has received 1 dose of chemotherapy since port placement. He is also has a history of IV drug use of methamphetamine. He reports he was sober for 11 years but when he found out that he had cancer he relapsed. He states that his last meth use was 3 days ago. He denies IV drug use since 2020. He states he smokes meth. When asked if he injected into his port he adamantly denies. The patient provides the following history with his fianceeCira at the bedside. He was at work on 08/28 and started to feel bad with body aches, fever, and chills he went home and went to sleep. Yesterday he continued to feel worse and was having fevers of 102.9. Because of this he presented to the emergency room. He also reports diarrhea, abdominal pain, sub sternal chest pain, anxiety, and an episode of dizziness when he was trying to take a warm shower. He reports the diarrhea does not have blood present. He is dyspneic at rest and is currently requiring 4 L of oxygen. Since admission he has noted that he is having pain and edema in his right hand. In the emergency room labs were significant for white blood cell count 14.1, normal hemoglobin 14.2, platelets 99, neutrophils 75.7%, sodium 127, chloride 95, CO2 19, anion gap 13, BUN 19, creatinine 1.18, glucose 126, calcium 7.4, T bili 2.0, AST 67, ALT 149, BNP 1157, high sensitivity troponin 10.5, and albumin 2.2. UA showed clear yellow urine, trace protein, 3+ glucose, and 2+ ketones. C diff was negative. quad viral screen negative. Chest x-ray was completed in the emergency room and showed mild opacity in the bilateral lower lung zones. the patient was started on Zosyn by the ER provider and admitted to the floor. Patient has concerns for a infected right chest port-a-cath with bacteremia (GPC in clusters) and suspected infective endocarditics. Patient will require port removal and ANGELA with possible CTS consult. Vancomycin was added. After arriving to the floor he became hypoxic requiring up to 4 L NC to maintain pulse ox greater to 92%. CTA chest ordered and shows pulmonary emboli in the segmental and subsegmental pulmonary arteries of the left upper lobe, multiple scattered bilateral pulmonary nodules measuring up to 2 cm concerning for pneumonia or metastatic disease or possibility of septic emboli, Mild pulmonary edema with small bilateral pleural effusions. IV fluids were stopped and he was given IV Lasix 40 mg. Patient was started on a heparin for pulmonary embolus with close monitoring of platelets. Dr Mcdermott, hospitalist at [facility] accepted the patient for transfer on 08/30/24 pending bed availability. Today, 08/31, [facility] called with a bed on [address], room 722. The patient will be transferred with a heparin gtt running via ACLS to [facility] hospital in serious condition. Time Spent with Patient Time attestation: Total time spent providing and/or coordinating transfer services: 95 Exam Narrative: General: appears uncomfortable, he still looks toxic but better than yesterday Respiratory: breathing is labored with even chest rise/fall, lungs are clear without wheezing. on 4 L NC. Cardiovascular: Rate and rhythm regular, normal s1s2, no murmur Abdomen: Soft, round, non-tender, active bowel sounds Extremities: No cyanosis. No clubbing. Right hand with edema without erythema and + warmth. Pulses 2/2. Limited ROM to right hand. Neuro: A&O x 4, anxious Skin: Warm, dry, intact. Right chest port-a-cath with erythema, warmth, and purulent drainage present. Erythema tracking in the left chest DS: Data Data Completed and Pending Labs on day of discharge: Labs from last 24 hours 08/31/24 08/31/24 08/31/24 13:06 08:59 06:14 WBC 8.4 RBC 4.42 L Hgb 13.0 L Hct 39.3 L MCV 88.9 MCH 29.4 MCHC 33.1 RDW 13.8 Plt Count 101 L MPV 12.0 H Immature Gran % (Auto) Not Reportable Neut % (Auto) Not Reportable Lymph % (Auto) Not Reportable Colbert % (Auto) Not Reportable Eos % (Auto) Not Reportable Baso % (Auto) Not Reportable Lymph # (Auto) Not Reportable Colbert # (Auto) Not Reportable Eos # (Auto) Not Reportable Baso # (Auto) Not Reportable Abs Immat Gran (auto) Not Reportable Absolute Neuts (auto) Not Reportable Absolute Nucleated RBC Not Reportable Total Counted 100 Neutrophils % (Manual) 68 Band Neutrophils % 0 Lymphocytes % (Manual) 10 L Monocytes % (Manual) 19 H Eosinophils % (Manual) 3 Nucleated RBC % Not Reportable Abs Neuts (Manual) 5.71 Abs Lymphs (Manual) 0.84 L Abs Monocytes (Manual) 1.59 H Absolute Eos (Manual) 0.25 Toxic Granulation Present Platelet Estimate Adequate Large Platelets Present Schistocytes None seen APTT 26.7 Sodium 133 L Potassium 3.4 L Chloride 97 L Carbon Dioxide 27 Anion Gap 9 BUN 12 Creatinine 1.00 Estim Creat Clear Calc 109 Estimated GFR > 60 Glucose 133 H POC Capillary Glucose 352 H 216 H Hemoglobin A1c Calculated Osmolality 277 L Calcium 6.8 L Magnesium 2.8 H Total Bilirubin 1.2 H AST 66 H ALT 111 H Alkaline Phosphatase 88 Troponin I 10.1 C-Reactive Protein NT-Pro-B Natriuret Pep 1403 H Total Protein 5.8 L Albumin 2.2 L Urine Opiates Screen Urine Methadone Screen Ur Barbiturates Screen Ur Phencyclidine Scrn Ur Amphetamine Screen U Benzodiazepines Scrn Urine Cocaine Screen U Cannabinoids Screen Ur L.pneumophila Ag Mycoplasma pneumon IgM Urine Pneumococcal Ag 08/31/24 08/30/24 08/30/24 05:27 20:40 18:32 WBC RBC Hgb Hct MCV MCH MCHC RDW Plt Count MPV Immature Gran % (Auto) Neut % (Auto) Lymph % (Auto) Colbert % (Auto) Eos % (Auto) Baso % (Auto) Lymph # (Auto) Colbert # (Auto) Eos # (Auto) Baso # (Auto) Abs Immat Gran (auto) Absolute Neuts (auto) Absolute Nucleated RBC Total Counted Neutrophils % (Manual) Band Neutrophils % Lymphocytes % (Manual) Monocytes % (Manual) Eosinophils % (Manual) Nucleated RBC % Abs Neuts (Manual) Abs Lymphs (Manual) Abs Monocytes (Manual) Absolute Eos (Manual) Toxic Granulation Platelet Estimate Large Platelets Schistocytes APTT Sodium Potassium Chloride Carbon Dioxide Anion Gap BUN Creatinine Estim Creat Clear Calc Estimated GFR Glucose POC Capillary Glucose 171 H 189 H Hemoglobin A1c Calculated Osmolality Calcium Magnesium Total Bilirubin AST ALT Alkaline Phosphatase Troponin I C-Reactive Protein NT-Pro-B Natriuret Pep Total Protein Albumin Urine Opiates Screen Positive A Urine Methadone Screen Negative Ur Barbiturates Screen Negative Ur Phencyclidine Scrn Negative Ur Amphetamine Screen Negative U Benzodiazepines Scrn Negative Urine Cocaine Screen Negative U Cannabinoids Screen Positive A Ur L.pneumophila Ag Pending Mycoplasma pneumon IgM Urine Pneumococcal Ag Pending 08/30/24 08/30/2424 18:11 18:10 18:04 WBC RBC Hgb Hct MCV MCH MCHC RDW Plt Count MPV Immature Gran % (Auto) Neut % (Auto) Lymph % (Auto) Colbert % (Auto) Eos % (Auto) Baso % (Auto) Lymph # (Auto) Colbert # (Auto) Eos # (Auto) Baso # (Auto) Abs Immat Gran (auto) Absolute Neuts (auto) Absolute Nucleated RBC Total Counted Neutrophils % (Manual) Band Neutrophils % Lymphocytes % (Manual) Monocytes % (Manual) Eosinophils % (Manual) Nucleated RBC % Abs Neuts (Manual) Abs Lymphs (Manual) Abs Monocytes (Manual) Absolute Eos (Manual) Toxic Granulation Platelet Estimate Large Platelets Schistocytes APTT Sodium Potassium Chloride Carbon Dioxide Anion Gap BUN Creatinine Estim Creat Clear Calc Estimated GFR Glucose POC Capillary Glucose Hemoglobin A1c 7.2 H Calculated Osmolality Calcium Magnesium Total Bilirubin AST ALT Alkaline Phosphatase Troponin I C-Reactive Protein 14.8 H NT-Pro-B Natriuret Pep Total Protein Albumin Urine Opiates Screen Urine Methadone Screen Ur Barbiturates Screen Ur Phencyclidine Scrn Ur Amphetamine Screen U Benzodiazepines Scrn Urine Cocaine Screen U Cannabinoids Screen Ur L.pneumophila Ag Mycoplasma pneumon IgM Pending Urine Pneumococcal Ag Preliminary micro results at discharge 08/29/24 18:31 Blood Culture - Preliminary Blood Gram positive cocci cluster is 08/29/24 18:31 Blood Culture - Preliminary Blood Gram positive cocci cluster is
--- NOTE | 2024-08-31 16:50 | PC.NURSE ---
Report called to Verna at [facility]. Patient going to room 722. Call back #[phone].
[2024-08-31] MEDS: MORPHINE SULFATE (*CRX) 4 MG/ML INJ IV PUSH (17:09)
[2024-08-31 17:16] LABS: Glucose Point of Care 206 mg/dl (65-105)
[2024-08-31] MEDS: ONDANSETRON INJ 4 MG/2 ML VIAL IV PUSH (17:31)
[2024-08-31] MEDS: LORazepam (*CRX) 0.5 MG TABLET PO (17:46)
--- NOTE | 2024-08-31 17:55 | PC.NURSE ---
Addendum entered by Faby Lee RN 08/31/24 19:32: EMS transporting patient with Heparin drip cont. to infuse. Original Note: EMS here to transport patient to [facility]. Report given to EMS. All patient belongings gathered together and sent with patient. Heparin drip cont. at 19ml/hr. IV site to left hand left in place due to being transfered to Higher level of care. IV site to right upper arm left in place as well. Patient transferred from bed to stretcher with 2x assist. Left floor via stretcher accompanied by EMS.
[2024-09-04 21:09] LABS: Pneumococcal Antigen Urine NOT DETECTED
[2024-09-05 18:39] LABS: Mycoplasma IgM Antibody Titer 233 U/mL
== END 2024-08-31 17:55 | disposition short-term general hospital (02) | DRG 721 ==
LOC: CHSED 22:45 → CHS2ND 23:01
PROVIDERS: Nurse Practitioner Acute Care; Admitting Provider Internal Medicine; Emergency Provider Emergency Medicine; PCP Physician Assistant; Visit Provider Internal Medicine
DX: T80.219A Unspecified infection due to central venous catheter, initial encounter (principal); A41.9 Sepsis, unspecified organism; J96.01 Acute respiratory failure with hypoxia; I26.99 Other pulmonary embolism without acute cor pulmonale; I26.94 Multiple subsegmental thrombotic pulmonary emboli without acute cor pulmonale; D69.6 Thrombocytopenia, unspecified; C90.00 Multiple myeloma not having achieved remission; J18.9 Pneumonia, unspecified organism; D84.821 Immunodeficiency due to drugs; B19.20 Unspecified viral hepatitis C without hepatic coma; Y95 Nosocomial condition; F15.90 Other stimulant use, unspecified, uncomplicated; F17.210 Nicotine dependence, cigarettes, uncomplicated; Z79.4 Long term (current) use of insulin; Z79.60 Long term (current) use of unspecified immunomodulators and immunosuppressants
CPT/HCPCS: 36415; 71045; 71046; 71275; 73120; 74176; 80053; 80307; 81001; 82010; 82948; 83036; 83605; 83735; 83880; 84484; 85025; 85055; 85730; 86140; 86738; 87040; 87070; 87181; 87205; 87449; 87493; 87637; 87641; 87899; 93005; 94640; 96365; 96374; 96375; 96376; 99285; A9270; G0378; G0379; J1644; J1720; J1815; J1940; J2270; J2405; J2543; J3370; J7030; Q9967

== ENCOUNTER 2024-12-29 08:34 | Outpatient (RCR) | payer OTHER, SELFPAY ==
--- NOTE | 2024-12-29 10:18 | OPREHPOC ---
Outpatient Therapy Plan of Care This is a Multidisciplinary Plan of Care that may contain components documented by all disciplines (PT, OT, and ST.) PT Problem 1 PT Problem #1 Knowledge Deficit PT Goal 1 Goal / Goal Update Independent with HEP. Target Visit 2 PT Problem 2 PT Problem #2 Pain PT Goal 1 Goal / Goal Update Pt to report no more than 3/10 pain when sitting. Pt to report no more than 3/10 pain when sitting to be able to sit for prolonged periods of time more comfortably. Target Visit 6 PT Problem 3 PT Problem #3 Impaired Functional Mobility PT Goal 1 Goal / Goal Update Pt to improve 6MWT distance to 1200 for improved functional endurance and gait speed. Pt to improve Oswestry score to 30%. Pt to be able to tolerate sitting for more than 45 minutes without significant pain. Target Visit 6
--- NOTE | 2024-12-29 10:18 | PTOPEVAL1 ---
Assessment and note entered by Mary Kennedy, PT Evaluation Information Assessment Status Evaluation ICD-10 Condition Codes (PT) Pain in low back M54.50,Difficulty Walking R26.2, Abnormalities of gait and mobility R26.9,Weakness R53.1 Other ICD-10 Condition Codes ( M54.59 PT) Onset 06/02/24 Subjective Information Pt reports 7 months ago he was lifting up a toilet at work and ended up breaking his back. Upon being evaluated for the fracture it was found that he had a tumor at L3 and he was later diagnosed with multiple myeloma on June 02 2024. Since being diagnosed he's been on chemo and has had multiple stints in the hospital including one for a septic port. He notes overall loss of strength and functional decline since being diagnosed. 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 Pt reports he underwent a kyphoplasty at L3 following the fracture but it didn't work, so he underwent an L1-5 fusion one month ago. Following the surgery pt went to inpatient rehab where he made some good progress in bed mobility, and he is able to walk short distances and perform stairs. He is currently off chemo due to the procedure but will be returning to his doctor on the to see when he can start it up again. Currently pt reports he experiences the most pain when sitting for any amount of time and pain starts to shoot down the legs with prolonged sitting. His left leg is completely numb since surgery but his right leg is not affected. He also notes his left leg is his weaker leg when performing exercises. He's not currently driving. States he's on BLT restrictions since the surgery and is supposed to follow these for up to 10 weeks. He has been doing upper extremity exercises at home since surgery. Reported Pain Level Pain Score 6: Self Report Assessment PT Clinical Summary Mr. Nguyen is a 44 yo male presenting to physical therapy with complaints of low back pain s/p fusion one month ago following a diagnosis of multiple myeloma in May 2024. He demonstrates generalized lower extremity weakness, functional decline, and pain that is exacerbated by sitting for any amount of time. He also demonstrates difficulty walking long distances and requires use of a WW due to weakness and fatigue. He will benefit from skilled physical therapy intervention to improve lower extremity strengthening, endurance, and functional mobility to be able to perform daily activities and sit for prolonged periods of time without significant pain. Plan of Care Interventions Electrical Stimulation,Gait Training,Hot Pack/Cold Pack,Manual Therapy,Mechanical Traction,Neuro Re- education,Patient/Caregiver Education,Therapeutic Activities,Therapeutic Exercise,Self-Care/Home Management PT Services Indicated Yes Treatment Frequency and 2x/week for 6 visits Duration These treatments will address the objective and functional deficits as defined above. The patient will be advanced safely and appropriately in order for the patient to progress towards his/her prior level of function. Additional exercises will be introduced and as well as a comprehensive home exercise program upon discharge, if needed, ?to ensure carryover of functional gains achieved in the clinic. This treatment plan has been reviewed and agreement upon by the patient.
== END 2025-03-29 23:59 | disposition home or self-care (01) ==
LOC: CHSPT 08:34
PROVIDERS: PCP Physician Assistant; Visit Provider Physician Assistant
DX: M54.59 Other low back pain (principal)
CPT/HCPCS: 97110; 97150; 97162; 97530

== ENCOUNTER 2025-03-11 19:57 | Emergency (ER) | payer OTHER, SELFPAY ==
--- NOTE | ~2025-03-11 | CT_ITS ---
CT thoracic lumbar wo con Ordering provider: Henry Paul MD History: . back pain s/p MM . Comparison: None. Technique: CT thoracic spine without contrast. Automated exposure control and iterative reconstructi on technique were employed. The dose-length product was 2345.64 mGy-cm. FINDINGS: VERTEBRAE: Normal height and alignment. No subluxation or visible acute fracture. Degenerative change s are noted. DISC SPACES: Well maintained.. Joint disease at the level of T10 and T11 with mild spinal canal steno sis. Otherwise, No significant stenosis as visualized. PARASPINOUS SOFT TISSUES: The nodule measuring 9 mm is seen in the right lung base. 3 months follow-u p CT advised. IMPRESSION: No acute osseous abnormality of the thoracic spine. Mild spinal canal stenosis at the level of T10 and T11. 9 mm Nodule in the right lung lower lobe. 3 months follow-up CT is advised. CT thoracic lumbar wo con Ordering provider: Henry Paul MD History: 44 years Male with . back pain s/p MM . Comparison: June 02, 2024 Technique: CT lumbar spine without contrast. Automated exposure control and iterative reconstruction technique were employed. The dose-length product was 2345.64 mGy-cm. FINDINGS: VERTEBRAE: Burst pathological fracture with vertebroplasty is seen at the level of L3. Postoperative changes at the level of L1, L2, L4 and L5 is noted. Otherwise, Normal height and alignment. No sublux ation is visible. Osteolytic areas seen in the left iliac bone medially. This may be degenerative but follow-up advised . DISC SPACES: Narrowing of the disc L5-S1. Otherwise, Well maintained. T12-L1: No stenosis. L1-L2: No stenosis. L2-L3: No stenosis. Diffuse disc bulge with narrowing of the foramina. L3-L4: Moderate spinal canal stenosis secondary to osteophytes , diffuse disc bulge, and facet arthro claire. Narrowing of the foramina is seen. L4-L5: No stenosis. Mild diffuse disc bulge. L5-S1: No stenosis. PARASPINOUS SOFT TISSUES: Mild atheromatous disease of the abdominal aorta. Left kidney stone. IMPRESSION: Pathological fracture of L3 with vertebroplasty and postoperative changes.. Degenerative disc disease at the level of L5-S1. Moderate spinal canal stenosis at the level of L3-4. Reviewed, dictated and finalized at location A. IMPRESSION: No acute osseous abnormality of the thoracic spine. Mild spinal canal stenosis at the level of T10 and T11. 9 mm Nodule in the right lung lower lobe. 3 months follow-up CT is advised. CT thoracic lumbar wo con Ordering provider: Henry Paul MD History: 44 years Male with . back pain s/p MM . Comparison: June 02, 2024 Technique: CT lumbar spine without contrast. Automated exposure control and it erative reconstruction technique were employed. The dose-length product was 234 5.64 mGy-cm. FINDINGS: VERTEBRAE: Burst pathological fracture with vertebroplasty is seen at the level of L3. Postoperative changes at the level of L1, L2, L4 and L5 is noted. Other jones, Normal height and alignment. No subluxation is visible. Osteolytic areas seen in the left iliac bone medially. This may be degenerative but follow-up advised. DISC SPACES: Narrowing of the disc L5-S1. Otherwise, Well maintained. T12-L1: No stenosis. L1-L2: No stenosis. L2-L3: No stenosis. Diffuse disc bulge with narrowing of the foramina. L3-L4: Moderate spinal canal stenosis secondary to osteophytes , diffuse disc b ulge, and facet arthropathy. Narrowing of the foramina is seen. L4-L5: No stenosis. Mild diffuse disc bulge. L5-S1: No stenosis. PARASPINOUS SOFT TISSUES: Mild atheromatous disease of the abdominal aorta. Left kidney stone.
[2025-03-11 19:59] VITALS: BP 147/84; PULSE 96; RESP 18; TEMP 36; O2SAT 97
--- NOTE | 2025-03-11 19:59 | ED_ITS ---
HPI - Back Pain/Injury General Chief Complaint: Back Pain/Injury Stated Complaint: back pain Time Seen by Provider: 03/11/25 19:58 Source: patient Mode of arrival: ambulatory Limitations: no limitations History of Present Illness HPI Narrative: 44-year-old male with a history of smoking, amphetamine use, diabetes mellitus,hep C, migraine, diagnosed with multiple myeloma in May of 2024, L3 lesion/ Possibly myeloma, status post spinal fusion from L1-L5 in November, pulmonary embolism, pulmonary nodules, on chemotherapy with Revlimid ,presents to the ED with a one-week history of -- midback pain. no radiation of pain around the trunk. The pain radiates to the thighs. No paresthesias of lower extremity. No bladder or bowel involvement. No loss of perineal sensation. no fever or chills. MD elicited complaint: back pain Pertinent past history: prior back pain and recent trauma ( Surgery L1-L5 fusion in November) Onset (ago): week(s) ( 1 week) Timing: constant Severity: severe Similar Symptoms Previously: Yes Quality: aching Location: lumbar spine Radiation: buttocks Exacerbating factors: movement Relieving factors: immobilization Associated symptoms: difficulty walking Work related injury: No Related Data Home Medications Medication Instructions Recorded Confirmed Last Taken Type Adult Aspirin EC Low Strength 81 mg PO DAILY 08/29/24 08/29/24 Unknown History acetaminophen 300 mg-codeine 30 mg 300 tablet PO Q6H PRN Pain, 08/29/24 08/29/24 Unknown History tablet Moderate acyclovir 400 mg tablet 400 mg PO BID 08/29/24 08/29/24 Unknown History carvedilol 12.5 mg tablet 12.5 mg PO BID 08/29/24 08/29/24 Unknown History empagliflozin 25 mg tablet 25 mg PO DAILY 08/29/24 08/29/24 Unknown History (Jardiance) insulin aspart U-100 100 unit/mL 5 unit subcut TID 08/29/24 08/29/24 Unknown History (3 mL) subcutaneous pen insulin glargine-yfgn 100 unit/mL 20 unit subcut DAILY 08/29/24 08/29/24 Unknown History (3 mL) subcutaneous pen ondansetron HCl 8 mg tablet 8 mg PO Q6H PRN Nausea 08/29/24 08/29/24 Unknown History prochlorperazine maleate 10 mg 10 mg PO Q6H PRN Nausea 08/29/24 08/29/24 Unknown History tablet sennosides 8.6 mg tablet (senna) 17.2 mg PO DAILY PRN Constipation 08/29/24 08/29/24 Unknown History Allergies Allergy/AdvReac Type Severity Reaction Status Date / Time No Known Allergies Allergy Verified 03/11/25 20:36 Review of Systems 2 Review of Systems: All systems reviewed & are unremarkable except as noted in HPI and below Constitutional: Constitutional: Reports as per HPI and Reports no additional constitutional complaints Eyes: Eyes: Reports as per HPI and Reports no additional eye complaints ENT: Reports system reviewed and no additional complaints, except as documented and Reports as per HPI Cardiovascular: Cardiovascular: Reports as per HPI and Reports no additional cardiovascular complaints Respiratory: Respiratory: Reports as per HPI and Reports no additional respiratory complaints Gastrointestinal: Gastrointestinal: Reports as per HPI and Reports no additional gastrointestinal complaints Genitourinary: Genitourinary: Reports no additional male genitourinary complaints and Reports as per HPI Musculoskeletal: Musculoskeletal: Reports no additional musculoskeletal complaints, Reports as per HPI and Reports back pain Integumentary/Breasts: Skin/Breast: Reports system reviewed and no additional complaints, except as docu and Reports as per HPI Neurologic: Reports system reviewed and no additional complaints, except as documented and Reports as per HPI Psychiatric: Psychiatric: Reports no additional psychiatric complaints and Reports as per HPI Endocrine: Endocrine: Reports no additional endocrine complaints, Reports as per HPI, Reports polydipsia and Reports polyuria Hematologic/Lymphatic: Hematologic/Lymphatic: Reports no additional hematologic/lymphatic complaints and Reports as per HPI Allergic/Immunologic: Allergic/Immunologic: Reports no additional allergic/immunologic complaints and Reports as per HPI [facility] Past Medical History Medical History Hepatitis C Migraine Multiple myeloma Surgical History Surgical History Hx of cholecystectomy S/P appendectomy Family History Family History Other Hypertension Social History Social History Social History: 43-year-old man who lives with his Cira ball who he deems his emergency contact. He reports a history of IV drug use with last IV drug use in 2020. He is a current methamphetamine user. Smoking status: Current every day smoker Tobacco type: cigarettes Second hand tobacco smoke exposure: Yes Alcohol intake: never Alcohol use details: per his reports Substance use: current Substance use type: marijuana, amphetamines and painkillers Last use: 08/27 Do You Feel Safe in your Home?: Yes Lack of Transportation: No Lack of Food: Never True Current Housing: I Have Housing Concerned About Future Housing: No Difficulty Paying Gas/Electric Bills: No Difficulty Paying for Meds: No Currently Unemployed: No Education: High School Diploma/GED Difficulty w/ Childcare or Family Care: No Living arrangements: with family Occupation/Education: occupation Spiritual care concerns: No Exam 2 Narrative: blood pressure 147/84. Afebrile. Oxygen saturation of 97% on room air. Const: General: ill appearing Orientation/consciousness: patient oriented x3 Limitations: no limitations HENMT: Head: normal to inspection Ears: external ears normal F angie/Nose/Sinus: Normal external nose present Face and sinus: normal facial exam Mouth: Yes Normal oral and palatal mucosa present Throat: posterior oropharynx normal Eyes: Conjunctivae: conjunctivae normal Pupils: Equal, round and reactive pupils present EOM: EOMs intact bilaterally Direct Ophthalmoscopy: no photophobia Neck: Neck: normal visual inspection, no lymphadenopathy and no meningeal signs Chest: Chest palpation & inspection: normal inspection of the chest Resp: Effort & Inspection: normal respiratory effort Auscultation: d iminished lung sounds Cardio: Rate: regular rate Rhythm: regular rhythm GI: GI Palp: Yes Soft to palpation Auscultation: normal bowel sounds O ther: No tenderness/rigidity/rebound. : General: Yes no CVA tenderness Back/Spine/Pelvis: Back: no CVA tenderness Other: Incision of the lower thoracic and lumbar spine. Palpation of the spine elicits tenderness. Straight leg raising test positive at 30°. No sensory loss of the lower extremity. Skin: General skin exam: normal color Neuro: General: patient oriented x3 and moves all extremities Speech: n ormal speech Extrem: General: normal to inspection and no clubbing, cyanosis or edema Psych: Mental Status: mental status grossly normal Affect: normal affect Attitude: cooperative Course Course Emergency Course: Low back pain status post spinal fusion /status post L3 vertebroplasty multiple myeloma on chemo patient was noted to have a normal white cell count and a normal lactate. Patient was afebrile. Blood cultures have been sent. CT of the thoracic and the lumbar spine revealed -- right lower lobe 9 mm nodule -- left iliac lucency -- mild spinal stenosis T10/T11 -- L2/L3 foraminal stenosis -- moderate L3/L4 spinal canal stenosis Vital Signs Vital signs: Vital Signs Temperature 36.0 C L 03/11/25 19:59 Pulse Rate 96 03/11/25 19:59 Respiratory Rate 18 03/11/25 19:59 Blood Pressure 147/84 H 03/11/25 19:59 Pulse Oximetry 97 03/11/25 19:59 Oxygen Delivery Room Air 03/11/25 19:59 Temperature 36.0 C L 03/11/25 19:59 Pulse Rate 96 03/11/25 19:59 Respiratory Rate 18 03/11/25 19:59 Blood Pressure 147/84 H 03/11/25 19:59 Pulse Oximetry 97 03/11/25 19:59 Oxygen Delivery Room Air 03/11/25 19:59 MDM - Back Pain/Injury MDM Narrative Medical decision making narrative: acute on chronic low back pain multiple myeloma Differential Diagnosis Differential diagnosis: Likely lumbar radiculopathy and strain of lumbar region Medical Records Attestation: I reviewed the patient's medical records. Lab Data Attestation: I reviewed the patient's lab results. 03/11/25 20:59 03/11/25 20:59 Labs: Lab Results 03/11/25 03/11/25 Range/Units 20:59 21:44 WBC 10.1 (4.8-10.8) K/mm3 RBC 4.99 (4.70-6.10) M/mm3 Hgb 13.9 L (14.0-18.0) g/dL Hct 43.5 (40.0-54.0) % MCV 87.2 (78.0-102.0) fL MCH 27.9 (27.0-31.0) pg MCHC 32.0 (32-36) g/dL RDW 13.9 (11.6-14.4) % Plt Count 212 (150-420) K/mm3 MPV 11.1 H (8.7-11.0) fl Immature Gran % (Auto) 0.5 H (0.0-0.0) % Neut % (Auto) 49.0 L (50.0-70.0) % Lymph % (Auto) 37.8 (18.0-42.0) % Wilbarger % (Auto) 8.8 (2.0-11.0) % Eos % (Auto) 3.3 (1.0-6.0) % Baso % (Auto) 0.6 (0.0-1.0) % Lymph # (Auto) 3.81 (1.10-4.50) K/mm3 Wilbarger # (Auto) 0.89 (0.10-0.90) K/mm3 Eos # (Auto) 0.33 (0.02-0.50) K/mm3 Baso # (Auto) 0.06 (0.00-0.10) K/mm3 Abs Immat Gran (auto) 0.05 H (0.00-0.00) K/mm3 Absolute Neuts (auto) 4.94 (1.70-7.20) K/mm3 Absolute Nucleated RBC 0.00 (0.00-0.00) K/mm3 Nucleated RBC % 0.0 (0-0.0) % Sodium 139 (137-145) mmol/L Potassium 3.8 (3.4-5.0) mmol/L Chloride 108 H (98-107) mmol/L Carbon Dioxide 21 L (22-30) mmol/L Anion Gap 10 (4-12) mmol/L BUN 14 (9-20) mg/dL Creatinine 0.92 (0.7-1.3) mg/dL Estim Creat Clear Calc 114 ml/min Estimated GFR > 60 (59 - ) Glucose 140 H (65-110) mg/dL Calculated Osmolality 290 (285-295) mOsm/kg Lactic Acid 1.6 (0.4-2.0) mmol/L Calcium 8.7 (8.4-10.2) mg/dL Total Bilirubin 0.4 (0.2-1.3) mg/dL AST 24 (17-59) U/L ALT 21 (6-50) U/L Alkaline Phosphatase 97 (38-126) U/L Total Protein 6.2 L (6.3-8.2) g/dL Albumin 3.8 (3.5-5.1) g/dL Lipase 185 (23-300) U/L Urine Color Light yellow (Yellow) Urine Appearance Clear (Clear) Urine pH 6.0 (5.0-8.0) Ur Specific Wells 1.010 (1.010-1.020) Urine Protein Negative (Negative) Urine Glucose (UA) 3+ H (Negative) Urine Ketones Negative (Negative) Ur Blood (Man) Negative (Negative) Urine Nitrate Negative (Negative) Urine Bilirubin Negative (Negative) Urine Urobilinogen 0.2 (0.2-1.0) mg/dL Leukocyte Esterase Rfl Negative (Negative) GLENN/UL Discharge Plan Discharge Clinical Impression: Chronic bilateral low back pain Qualifiers: Sciatica presence: with sciatica Sciatica laterality: bilateral sciatica Q ualified Code(s): M54.42 - Lumbago with sciatica, left side Multiple myeloma Qualifiers: Multiple myeloma remission status: unspecified Qualified Code(s): C90.00 - Multiple myeloma not having achieved remission Patient Disposition: Home Condition: Stable Instructions: Antibiotic Form, Multiple Myeloma (DC), Lumbar Spinal Fusion (DC) Patient Language: French Prescriptions: New oxycodone-acetaminophen [Percocet] 5-325 mg tablet 1 tablet PO Q6H PRN (Reason: pain) Qty: 14 0RF No Action Adult Aspirin EC Low Strength tablet 81 mg PO DAILY sennosides [senna] 8.6 mg tablet 17.2 mg PO DAILY PRN (Reason: Constipation) carvedilol 12.5 mg tablet 12.5 mg PO BID ondansetron HCl 8 mg tablet 8 mg PO Q6H PRN (Reason: Nausea) acetaminophen-codeine 300-30 mg tablet 300 tablet PO Q6H PRN (Reason: Pain, Moderate) prochlorperazine maleate 10 mg tablet 10 mg PO Q6H PRN (Reason: Nausea) acyclovir 400 mg tablet 400 mg PO BID insulin aspart U-100 100 unit/mL (3 mL) insulin pen 5 unit SUBCUT TID Rx Instructions: with meals Jardiance 25 mg tablet 25 mg PO DAILY insulin glargine-yfgn 100 unit/mL (3 mL) insulin pen 20 unit SUBCUT DAILY heparin (porcine) in 5 % dex 25,000 unit/250 mL(100 unit/mL) Parenteral Solution 25,000 unit continuous IV infusion .[id number] Qty: 6000 0RF Follow-up/Referrals: Yas,SHEREE Estevez [Primary Care Provider] - Time of Disposition: 22:46
--- OUTSIDE RECORDS SUMMARY | 2025-03-11 19:59 | XMS_ITS | Clinical Summary ---
Author Organization [facility] Address [address] [place] [address] Care Team Providers Care Ground Operations Superintendent Name Role Phone Matthew Sorenson Primary Care Provider [phone] Matthew Sorenson Unavailable [phone] Allergies No known active allergies Medications ketorolac (TORADOL) 10 mg tablet Take 1 tablet (10 mg total) by mouth 3 (three) times a day as needed for pain Take with food. 15 tablet 09/12/2022 Active ibuprofen (ADVIL,MOTRIN) 600 mg tabletIndication s:Pain Take 1 tablet (600 mg total) by mouth every 6 (six) hours as needed for pain 30 tablet 05/04/2023 Active Encounters Date Type Department Care Team Description 12/13/2024 Orders Only [facility] [phone] Unknown, Notinfile from Last 3 Months Social History Tobacco Use Types Packs/Day Years Used Date Smoking Tobacco: Never Assessed Personal Safety Answer Date Recorded Getting School Help Needed Not on file 05/11 Sex and Gender Information Value Date Recorded Sex Assigned at Not on file Legal Sex Male 10:04 AM ACIDIZER Gender Identity Not on file Sexual Orientation Not on file Last Filed Vital Signs Vital Sign Reading Time Taken Comments Blood Pressure 141/93 05/04/2023 8:25 AM CDT Pulse 92 05/04/2023 8:25 AM CDT Temperature 36.1 C (97 F) 05/04/2023 8:25 AM CDT Respiratory Rate 18 05/04/2023 8:25 AM CDT Oxygen Saturation 98% 05/04/2023 8:25 AM CDT Inhaled Oxygen Concentration - - Weight 113.9 kg (251 lb) 05/04/2023 8:25 AM CDT Height 182.9 cm (6') 05/04/2023 8:25 AM CDT Body Mass Index 34.04 05/04/2023 8:25 AM CDT Plan of Treatment Health Maintenance Due Date Last Done Comments Colon Cancer Screening-Colonoscopy 1978 Depression Screening 1978 Hepatitis C Screening 1978 DTaP/Tdap/Td Vaccine (1 - Tdap) 1989 Hepatitis B Screening 1996 Regular Well Visit/Exam 18-64 1996 Influenza Vaccine (Season Ended) 2025 HPV Vaccines Aged Out No longer eligi ble based on patient's age to complete this topic Pneumococcal vaccine <65 Aged Out No longer eligible based on patient's age to complete this topic Procedures Procedure Name Priority Date/Time Associated Diagnosis Comments EGFR Routine 12/17/2024 6:02 AM ACIDIZER CRP (ACUTE PHASE) Routine 12/17/2024 6:0 2 AM ACIDIZER COMPREHENSIVE METABOLIC PANEL Routine 12/17/2024 6:02 AM ACIDIZER BASIC METABOLIC PANEL Routine 12/17/2024 6:02 AM ACIDIZER URIC ACID Routine 12/17/2024 6:02 AM ACIDIZER ERYTHROCYTE SEDIMENTATION RATE Routine 12/17/2024 6:02 AM ACIDIZER DIFFERENTIAL AUTO Routine 12/17/2024 6:0 2 AM ACIDIZER CBC WITH AUTO DIFFERENTIAL Routine 12/17/2024 6:02 AM ACIDIZER EGFR Routine 12/13/2024 5:30 AM ACIDIZER COMPREHENSIVE METABOLIC PANEL Routine 12/13/2024 5:30 AM ACIDIZER CBC WITHOUT DIFFERENTIAL Routine 12/13/2024 5:30 AM ACIDIZER from Last 3 Months Results * eGFR (12/17/2024 6:02 AM ACIDIZER) Pathologist [facility] [place] eGFR >90 >=60 mL/min/1. 73 m2 [facility] Comment: Interpretive Data Reference Interval Normal >/= 90 mL/min/1.73m2 Mildly decreased* 60 - 89 mL/min/1.73m2 Mildly to moderately decreased 45 - 59 mL/min/1.73m2 Moderately to severely decreased 30 - 44 mL/min/1.73m2 Severely decreased 15 - 29 mL/min/1.73m2 Kidney Failure < 15 mL/min/1.73m2 *Relative to young adult level Estimated glomerular filtration rate is determined by the 2020 CKD-EPI equation recommended by the National Kidney Foundation (A Unifying Approach to GFR Estimation: Recommendations of the NKF-ASK Task Force on Reassessing the Inclusion of Race in Diagnosing Kidney Disease, JASN 2020). The CKD-EPI equation should not be used for patients with unstable renal function and has not been validated in children and those over 70. Current interpretive data was last reviewed 2021. Testing performed by: [address] [address] Blood 12/17/2024 6:02 AM ACIDIZER 12/17/2024 8:21 AM ACIDIZER us Notinfile Unknown LAB BLOOD ORDERABLES Final Res ult [facility] [address] Department [place] [address] * (ABNORMAL) Differential, auto (12/17/2024 6:02 AM ACIDIZER) Pathologist [facility] [place] Neutrophil abs 4.0 1.5 - 6.5 K/cumm USMAN [facility] Comment:Testing performed by : [address] [address] Imm gran abs 0.0 0.0 - 0.1 K/cumm USMAN RAND Comment:Testing performed by : [address] [address] Lymphocyte abs 2.3 0.8 - 3.3 K/cumm CERNER Comment:Testing performed by : [address], [place]., [address] Monocyte abs 1.2(H) 0.2 - 0.8 K/cumm CERNER Comment:Testing performed by : [address], [place]., [address] Eosinophil abs 0.3 0.0 - 0.5 K/cumm [facility] Comment:Testing performed by : [address], [place]., [address] Basophil abs 0.0 0.0 - 0.1 K/cumm CERNER Comment:Testing performed by : [address] [address] Neutrophil pct 50.7 % CERNER Comment: Interpretive Data Percent cell count reference ranges are not reported, since discordance with absolute values may lead to misinterpretation of CBC data. Current Interpretive Data was last revised on 2018. Testing performed by: [address] [address] Imm gran pct 0.5 % CERNER Comment: Interpretive Data Percent cell count reference ranges are not reported, since discordance with absolute values may lead to misinterpretation of CBC data. Current Interpretive Data was last revised on 2018. Testing performed by: [address] [address] Lymphocyte pct 29.3 % CERNER Comment: Interpretive Data Percent cell count reference ranges are not reported, since discordance with absolute values may lead to misinterpretation of CBC data. Current Interpretive Data was last revised on 2018. Testing performed by: [address] [address] Monocyte pct 14.9 % CERNER Comment: Interpretive Data Percent cell count reference ranges are not reported, since discordance with absolute values may lead to misinterpretation of CBC data. Current Interpretive Data was last revised on 2018. Testing performed by: [address] [address] Eosinophil pct 4.3 % CERNER Comment: Interpretive Data Percent cell count reference ranges are not reported, since discordance with absolute values may lead to misinterpretation of CBC data. Current Interpretive Data was last revised on 2018. Testing performed by: [address] [address] Basophil pct 0.3 % [facility]MAN RAND Comment: Interpretive Data Percent cell count reference ranges are not reported, since discordance with absolute values may lead to misinterpretation of CBC data. Current Interpretive Data was last revised on 2018. Testing performed by: [address] [address] Blood 12/17/2024 6:02 AM ACIDIZER 12/17/2024 8:21 AM ACIDIZER us Notinfile Unknown LAB BLOOD ORDERABLES Final Res ult [facility] Department [place] [address] * (ABNORMAL) CBC with auto differential (12/17/2024 6:02 AM ACIDIZER) WBC 7.9 3.8 - 9.9 K/cumm [facility]MAN [facility] Comment:Testing performed by : [address] [address] Hgb 10.9(L) 13.0 - 17.5 g/dL USMAN [facility]AND Comment:Testing performed by : [address] [address] Hct 34.0(L) 38.9 - 50.3 % [facility]MAN [facility] Comment:Testing performed by : [address] [address] Plt 381 150 - 400 K/cumm USMAN [facility] Comment:Testing performed by : [address] [address] MPV 10.3 9.1 - 12.3 fL USMAN [facility] Comment:Testing performed by : [address] [address] RBC 4.02(L) 4.30 - 5.80 M/cumm USMAN RAND Comment:Testing performed by : [address] [address] MCV 84.6 81.3 - 96.4 fL USMAN RAND Comment:Testing performed by : [address] [address] MCH 27.1 27.1 - 33.3 pg USMAN RAND Comment:Testing performed by : [address] [address] MCHC 32.1(L) 32.3 - 35.7 g/dL USMAN [facility]AND Comment:Testing performed by : [address], [address] RDW CV 14.6 11.1 - 14.9 % USMAN Comment:Testing performed by : [address] [address] RDW SD 45.0 35.7 - 48.1 fL USMAN Comment:Testing performed by : [address] [address] NRBC abs 0.00 0.00 - 0.01 K/cumm USMAN Comment:Testing performed by : [address], [address] Blood 12/17/2024 6:02 AM ACIDIZER 12/17/2024 8:21 AM ACIDIZER us Notinfile Unknown LAB BLOOD ORDERABLES Final Res ult [facility] [address] Department of Laboratories [place], [place] [id number] * (ABNORMAL) Erythrocyte sedimentation rate (12/17/2024 6:02 AM ACIDIZER) Erythrocyte sedimentation rate 56(H) 1 - 15 mm/hr USMAN Comment:Testing performed by : [address] [address] Blood 12/17/2024 6:02 AM ACIDIZER 12/17/2024 8:21 AM ACIDIZER us Notinfile Unknown LAB BLOOD ORDERABLES Final Res ult Performing Organization Address [facility] Co de Phone Number JONI[address] [address] * (ABNORMAL) CRP (acute phase) (12/17/2024 6:02 AM ACIDIZER) CRP 10.9(H) <=10.0 mg/L USMAN [facility]AND Comment:Testing performed by : [address] [address] Blood 12/17/2024 6:02 AM ACIDIZER 12/17/2024 8:21 AM ACIDIZER us Notinfile Unknown LAB BLOOD ORDERABLES Final Res ult Performing Organization Address [facility] Co de Phone Number JONI[address] [address] * Uric acid (12/17/2024 6:02 AM ACIDIZER) Uric acid 4.7 3.0 - 8.0 mg/dL USMAN Comment:Testing performed by : [address] [address] Blood 12/17/2024 6:02 AM ACIDIZER 12/17/2024 8:21 AM ACIDIZER us Notinfile Unknown LAB BLOOD ORDERABLES Final Res ult Performing Organization Address [facility] Co de Phone Number JONI[address] [address] * (ABNORMAL) Comprehensive metabolic panel (12/17/2024 6:02 AM ACIDIZER) Sodium 138 135 - 145 mmol/L USMAN [facility]AND Comment:Testing performed by : [address] [address] Potassium, pl 4.4 3.3 - 4.9 mmol/L USMAN [facility]AND Comment:Testing performed by : [address] [address] Chloride 101 97 - 110 mmol/L USMAN Comment:Testing performed by : [address] [address] CO2 27 22 - 32 mmol/L USMAN Comment:Testing performed by : [address] [address] Anion gap 10 2 - 15 mmol/L USMAN Comment:Testing performed by : [address] [address] BUN 13 6 - 25 mg/dL USMAN Comment:Testing performed by : [address] [address] Creatinine 0.67(L) 0.80 - 1.30 mg/dL USMAN Comment:Testing performed by : [address] [address] Glucose 154 70 - 199 mg/dL USMAN Comment: Interpretive Data Fasting glucose >/= 126 mg/dl is diagnostic for diabetes. Fasting is defined as no caloric intake for at least 8 hours. Fasting glucose between 100 mg/dl to 125 mg/dl is diagnostic of prediabetes. In a patient with classic symptoms of hyperglycemia or hyperglycemic crisis, a random glucose >/= 200 mg/dl is diagnostic for diabetes. In the absence of unequivocal hyperglycemia, results should be confirmed by repeat testing. The classification and Diagnosis of Diabetes Diabetes Care 202; 46: S19-S40. Current interpretive data was last revised 2022. Testing performed by: [address] [address] Calcium 9.4 8.5 - 10.3 mg/dL USMAN Comment:Testing performed by : [address] [address] Bilirubin, total 0.3 0.1 - 1.2 mg/dL USMAN Comment:Testing performed by : [address] [address] Protein, pl 6.5 6.5 - 8.5 g/dL USMAN Comment:Testing performed by : [address] [address] Albumin 3.5 3.5 - 5.0 g/dL USMAN Comment:Testing performed by : [address] [address] Alk phos 598(H) 40 - 130 Units/L USMAN Comment:Testing performed by : [address] [address] ALT 78(H) 7 - 55 Units/L USMAN Comment:Testing performed by : [address] [address] AST 87(H) 10 - 50 Units/L USMAN Comment:Testing performed by : [address] [address] Blood 12/17/2024 6:02 AM ACIDIZER 12/17/2024 8:21 AM ACIDIZER us Notinfile Unknown LAB BLOOD ORDERABLES Final Res ult Performing Organization Address City/State/[facility] Co de Phone Number USMAN [address] Department [place] [address] * (ABNORMAL) Basic metabolic panel (12/17/2024 6:02 AM ACIDIZER) Sodium 138 135 - 145 mmol/L USMAN Comment:Testing performed by : [address] [address] Potassium, pl 4.4 3.3 - 4.9 mmol/L USMAN Comment:Testing performed by : [address] [address] Chloride 101 97 - 110 mmol/L USMAN Comment:Testing performed by : [address] [address] CO2 27 22 - 32 mmol/L USMAN Comment:Testing performed by : [address] [address] Anion gap 10 2 - 15 mmol/L USMAN Comment:Testing performed by : [address] [address] BUN 13 6 - 25 mg/dL USMAN Comment:Testing performed by : [address] [address] Creatinine 0.67(L) 0.80 - 1.30 mg/dL USMAN RAND Comment:Testing performed by : [address] [address] Glucose 154 70 - 199 mg/dL USMAN RAND Comment: Interpretive Data Fasting glucose >/= 126 mg/dl is diagnostic for diabetes. Fasting is defined as no caloric intake for at least 8 hours. Fasting glucose between 100 mg/dl to 125 mg/dl is diagnostic of prediabetes. In a patient with classic symptoms of hyperglycemia or hyperglycemic crisis, a random glucose >/= 200 mg/dl is diagnostic for diabetes. In the absence of unequivocal hyperglycemia, results should be confirmed by repeat testing. The classification and Diagnosis of Diabetes Diabetes Care 202; 46: S19-S40. Current interpretive data was last revised 2022. Testing performed by: [address] [address] Calcium 9.4 8.5 - 10.3 mg/dL USMAN Comment:Testing performed by : [address] [address] Blood 12/17/2024 6:02 AM ACIDIZER 12/17/2024 8:21 AM ACIDIZER us Notinfile Unknown LAB BLOOD ORDERABLES Final Res ult [facility]MAN [address] Department of Laboratories [place], [place] [id number] * eGFR (12/13/2024 5:30 AM ACIDIZER) eGFR >90 >=60 mL/min/1. 73 m2 USMAN RAND Comment: Interpretive Data Reference Interval Normal >/= 90 mL/min/1.73m2 Mildly decreased* 60 - 89 mL/min/1.73m2 Mildly to moderately decreased 45 - 59 mL/min/1.73m2 Moderately to severely decreased 30 - 44 mL/min/1.73m2 Severely decreased 15 - 29 mL/min/1.73m2 Kidney Failure < 15 mL/min/1.73m2 *Relative to young adult level Estimated glomerular filtration rate is determined by the 2020 CKD-EPI equation recommended by the National Kidney Foundation (A Unifying Approach to GFR Estimation: Recommendations of the NKF-ASK Task Force on Reassessing the Inclusion of Race in Diagnosing Kidney Disease, JASN 202). The CKD-EPI equation should not be used for patients with unstable renal function and has not been validated in children and those over 70. Current interpretive data was last reviewed 2021. Testing performed by: [address] [address] Blood 12/13/2024 5:30 AM ACIDIZER 12/13/2024 8:39 AM ACIDIZER us Notinfile Unknown LAB BLOOD ORDERABLES Final Res ult [facility]MAN [facility] Department [place] [address] * (ABNORMAL) CBC without differential (12/13/2024 5:30 AM ACIDIZER) WBC 9.3 3.8 - 9.9 K/cumm USMAN RAND Comment:Testing performed by : [address] [address] Hgb 10.5(L) 13.0 - 17.5 g/dL USMAN RAND Comment:Testing performed by : [address] [address] Hct 32.6(L) 38.9 - 50.3 % USMAN RAND Comment:Testing performed by : [address] [address] Plt 458(H) 150 - 400 K/cumm USMAN Comment:Testing performed by : [address] [address] MPV 10.2 9.1 - 12.3 fL USMAN RAND Comment:Testing performed by : [address] [address] RBC 3.88(L) 4.30 - 5.80 M/cumm USMAN RAND Comment:Testing performed by : [address] [address] MCV 84.0 81.3 - 96.4 fL USMAN RAND Comment:Testing performed by : [address] [address] MCH 27.1 27.1 - 33.3 pg USMAN RAND Comment:Testing performed by : [address] [address] MCHC 32.2(L) 32.3 - 35.7 g/dL USMAN RAND Comment:Testing performed by : [address] [address] RDW CV 14.6 11.1 - 14.9 % USMAN RAND Comment:Testing performed by : [address] [address] RDW SD 44.4 35.7 - 48.1 fL USMAN RAND Comment:Testing performed by : [address] [address] NRBC abs 0.00 0.00 - 0.01 K/cumm USMAN RAND Comment:Testing performed by : [address] [address] Blood 12/13/2024 5:30 AM ACIDIZER 12/13/2024 8:39 AM ACIDIZER us Notinfile Unknown LAB BLOOD ORDERABLES Final Res ult USMAN RAND [address] Department [place] [address] * (ABNORMAL) Comprehensive metabolic panel (12/13/2024 5:30 AM ACIDIZER) Sodium 139 135 - 145 mmol/L USMAN RAND Comment:Testing performed by : [address] [address] Potassium, pl 4.5 3.3 - 4.9 mmol/L USMAN RAND Comment:Testing performed by : [address] [address] Chloride 100 97 - 110 mmol/L USMAN RAND Comment:Testing performed by : [address] [address] CO2 27 22 - 32 mmol/L USMAN RAND Comment:Testing performed by : [address] [address] Anion gap 12 2 - 15 mmol/L USMAN Comment:Testing performed by : [address] [address] BUN 11 6 - 25 mg/dL USMAN Comment:Testing performed by : [address] [address] Creatinine 0.50(L) 0.80 - 1.30 mg/dL USMAN Comment:Testing performed by : [address] [address] Glucose 127 70 - 199 mg/dL USMAN Comment: Interpretive Data Fasting glucose >/= 126 mg/dl is diagnostic for diabetes. Fasting is defined as no caloric intake for at least 8 hours. Fasting glucose between 100 mg/dl to 125 mg/dl is diagnostic of prediabetes. In a patient with classic symptoms of hyperglycemia or hyperglycemic crisis, a random glucose >/= 200 mg/dl is diagnostic for diabetes. In the absence of unequivocal hyperglycemia, results should be confirmed by repeat testing. The classification and Diagnosis of Diabetes Diabetes Care 202; 46: S19-S40. Current interpretive data was last revised 2022. Testing performed by: [address] [address] Calcium 9.6 8.5 - 10.3 mg/dL USMAN Comment:Testing performed by : [address] [address] Bilirubin, total 0.4 0.1 - 1.2 mg/dL USMAN Comment:Testing performed by : [address] [address] Protein, pl 6.6 6.5 - 8.5 g/dL USMAN Comment:Testing performed by : [address] [address] Albumin 3.6 3.5 - 5.0 g/dL USMAN Comment:Testing performed by : [address] [address] Alk phos 802(H) 40 - 130 Units/L USMAN Comment:Testing performed by : [address] [place] [address] ALT 57(H) 7 - 55 Units/L USMAN RAND Comment:Testing performed by : [facility], [address] [place] [address]., [address] AST 76(H) 10 - 50 Units/L USMAN RAND Comment:Testing performed by : [facility], [address] [place] [address]., [address] Blood 12/13/2024 5:30 AM ACIDIZER 12/13/2024 8:39 AM ACIDIZER us Notinfile Unknown LAB BLOOD ORDERABLES Final Res ult USMAN RAND [address] Department [place] [address] from Last 3 Months Insurance [facility] Care Teams Ground Operations Superintendent Relationship Specialty Start Date End Date Matthew Sorenson PA [address] [place] [address] PCP - General Family Practice 05/04/23 Matthew Sorenson PA [address] [place] [address] Family Practice 09/12/22
--- OUTSIDE RECORDS SUMMARY | 2025-03-11 19:59 | XMS_ITS | Encounter Summary ---
Author Organization [facility] Address [address] [place] [address] Care Team Providers Care Temperer Name Role Phone Matthew Sorenson Primary Care Provider [phone] Jose Luis Brooks MD Unavailable [phone] Abelardo Presley MD Unavailable [phone] Bo Francisco MD Unavailable [phone] Angie Rogers MD Unavailable Katie GutierrezD Unavailable Unavaila Jaja Casillas RN Unavailable Unavailable Abimbola Waters SCHOOL PSYCHOLOGY SPECIALIST-MOBILE PRODUCT MANAGER Unavailable [phone] Perri Dexter SCHOOL PSYCHOLOGY SPECIALIST-MOBILE PRODUCT MANAGER Unavailable [phone] Marilyn Bennett RN Unavailable Unavailable Erasmo Roberson RN Unavailable Unavailable Alexandra Cota RN Unavailable Unavailable Alda Braswell Unavailable Unavailable Lucia Sharif LCSW Unavailable Unavailab le Reason for Visit * Reason Onset Date Comments MEDICATION REFILL 10/20/2024 Encounter Details Date Type Department Care Team (Late st Contact Info) Description 10/20/2024 Refill [facility] - Hematology/Oncology [address] [place] [address] Jose Luis Brooks MD [address] [facility] [place] [address] MEDICATION REFILL Social History Tobacco Use Types Packs/Day Years Used Date Smoking Tobacco: Every Day Cigarettes 1.5 33.6 Started: 08/20/1991 Smokeless Tobacco: Never Alcohol Use Standard Drinks/Week Comments Not Currently 0 (1 standard drink = 0.6 oz pur e alcohol) rarely AUDIT-C Answer Date Recorded Q1: How often do you have a drink containing alcohol? Never 10/24/2024 Q2: How many drinks containi ng alcohol do you have on a typical day when you are drinking? Patient does not drink Q3: How often do you have si x or more drinks on one occasion? Never 10/24/2024 Overall Financial Resource Strain (CARDIA) Answe r Date Recorded How hard is it for you to pa y for the very basics like food, housing, medical care, and heating? Very hard 10/24/2024 PHQ-2 Answer Date Recorded Patient Health Questionnaire-2 Score 1 08/12/2024 [facility] - Occupational Stress Questionnaire Answer Date Recorded Do you feel stress - tense, restless, nervous, or anxious, or unable to sleep at night because your mind is troubled all the time - these days? Not at all 10/24/2024 Hunger Vital Sign Answer Date Recorded Within the past 12 months, y ou worried that your food would run out before you got the money to buy more. Never true 10/24/20 24 Within the past 12 months, t he food you bought just didn't last and you didn't have money to get more. Never true 10/24/2024 PRAPARE - Transportation Answer Date Re corded In the past 12 months, has l ack of transportation kept you from medical appointments or from getting medications? No 09/29 In the past 12 months, has l ack of transportation kept you from meetings, work, or from getting things needed for daily living? No 10/24/2024 Housing Stability Vital Sign Answer Obed e [...] place to sleep or slept in a retirement (including now)? No 06/04/2024 Housing Stability Vital Sign Answer Obed e Recorded In the last 12 months, was t here a time when you were not able to pay the mortgage or rent on time? Yes 10/24/2024 In the past 12 months, how m any times have you moved where you were living? 0 10/24/2024 At any time in the past [address] [facility], were you homeless or living in a retirement (including now)? 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 Answer Date of Assessment Author No 09/05/2024 9:00 AM Ruthy Sam RN * Is person blind or have serious difficulty seeing? Answer Date of Assessment Author No 09/05/2024 9:00 AM Ruthy Sam RN * Does person have serious difficulty walking/climbing stairs? Answer Date of Assessment Author No 09/05/2024 9:00 AM Ruthy Sam RN * Does person have difficulty dressing/bathing? Answer Date of Assessment Author No 09/05/2024 9:00 AM Ruthy Sam RN * Does person have difficulty doing errands alone? Answer Date of Assessment Author No 09/05/2024 9:00 AM Ruthy Sam RN documented as of this encounter Mental Status * Does person have difficulty concentrating/remembering/making decisions? Answer Entry Date Author No 09/05/2024 9:00 AM Ruthy Sam RN documented in this encounter Plan of Treatment Upcoming Encounters Date Type Department Care Team (Late st Contact Info) Description 04/06/2025 8:40 AM CDT Appointment [facility] [address] [place] [phone] Arya Rm MD [address] [place] [address] [place] [address] 04/06/2025 9:15 AM CDT Office Visit [facility] - Neurosurgery [address] [place] [address], [place] [phone] Arya Rm MD [address] [place] [address] [address] [place] [phone] 05/28/2025 2:30 PM CDT Office Visit [facility] - Infectious Disease [address] [place] [address], [facility] [place] [phone] Cristian Mcmillan MD [address] [place] [phone] documented as of this encounter Visit Diagnoses Not on filedocumented in this encounter Additional Health Concerns Infection Onset Date Last Indicated Resolved Time 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 CDIFF Under Investigation 01/13/2025 01/13/2025 7:19 PM CDT COVID-19 Under Investigation 01/13/2025 01/13/2025 01/13/2025 4:01 PM CDT COVID-19 Under Investigation 02/12/2025 02/12/2025 02/12/2025 4:07 PM CDT documented as of this encounter Care Teams Temperer Relationship Specialty Start Date End Date Matthew Sorenson PA [address] [place] [address] PCP - General 02/02/22 Jose Luis Brooks MD [address] [place] [address] Social Services Specialist/Oncologis t Hematology and Oncology 08/29/24 [place] [address] [place] [address] Hematology and Oncology 08/29/24 03/04/25 [place] [address] [place] [phone] Hematology and Oncology 08/29/24 03/04/25 Angie Rogers MD [address] [place] [phone] Physician Hematology and Oncology 08/29/24 03/04/25 Katie Gutierrez, PharmD 08/29/24 03/04/25 Jaja Rayo, RN Registered Nurse 08/29/24 03/04/25 Abimbola Waters, SCHOOL PSYCHOLOGY SPECIALIST-MOBILE PRODUCT MANAGER [address] [place] [phone] Nurse Practitioner Nurse Practitioner 08/29/24 03/04/25 Perri Dexter, DAYNA-MOBILE PRODUCT MANAGER [address] [place] [phone] Nurse Practitioner Nurse Practitioner 08/29/24 03/04/25 Marilyn Bennett, RN Coordinator 08/29/24 Erasmo Roberson, RN Registered Nurse 08/29/24 03/04/25 Alexandra Cota, RN Registered Nurse 08/29/24 03/04/25 Alda Braswell 08/29/24 03/04/25 Lucia Sharif FITTER HELPER Clerk Carrier 08/29/24 03/04/25 documented as of this encounter
--- OUTSIDE RECORDS SUMMARY | 2025-03-11 19:59 | XMS_ITS | Referral Summary ---
Author Organization [facility] Address [address] [place] [address] Care Team Providers Care Reconsignment Clerk Name Role Phone Matthew Sorenson Primary Care Provider [phone] Matthew Sorenson Unavailable Encounters Date Type Department Care Team Description 12/13/2024 Orders Only [facility] [phone] Unknown, Notinfile from Last 3 Months Allergies No known active allergies Medications ketorolac (TORADOL) 10 mg tablet Take 1 tablet (10 mg total) by mouth 3 (three) times a day as needed for pain Take with food. 15 tablet 09/12/2022 Active ibuprofen (ADVIL,MOTRIN) 600 mg tabletIndication s:Pain Take 1 tablet (600 mg total) by mouth every 6 (six) hours as needed for pain 30 tablet 05/04/2023 Active Social History Tobacco Use Types Packs/Day Years Used Date Smoking Tobacco: Never Assessed Personal Safety Answer Date Recorded Getting School Help Needed Not on file 05/11 Sex and Gender Information Value Date Recorded Sex Assigned at Not on file Legal Sex Male 10:04 AM DIRECTOR FUNDS DEVELOPMENT Gender Identity Not on file Sexual Orientation [...] 05/04/2023 8:25 AM CDT Plan of Treatment Not on file Procedures Procedure Name Priority Date/Time Associated Diagnosis Comments EGFR Routine 12/17/2024 6:02 AM DIRECTOR FUNDS DEVELOPMENT CRP (ACUTE PHASE) Routine 12/17/2024 6:0 2 AM DIRECTOR FUNDS DEVELOPMENT COMPREHENSIVE METABOLIC PANEL Routine 12/17/2024 6:02 AM DIRECTOR FUNDS DEVELOPMENT BASIC METABOLIC PANEL Routine 12/17/2024 6:02 AM DIRECTOR FUNDS DEVELOPMENT URIC ACID Routine 12/17/2024 6:02 AM DIRECTOR FUNDS DEVELOPMENT ERYTHROCYTE SEDIMENTATION RATE Routine 12/17/2024 6:02 AM DIRECTOR FUNDS DEVELOPMENT DIFFERENTIAL AUTO Routine 12/17/2024 6:0 2 AM DIRECTOR FUNDS DEVELOPMENT CBC WITH AUTO DIFFERENTIAL Routine 12/17/2024 6:02 AM DIRECTOR FUNDS DEVELOPMENT EGFR Routine 12/13/2024 5:30 AM DIRECTOR FUNDS DEVELOPMENT COMPREHENSIVE METABOLIC PANEL Routine 12/13/2024 5:30 AM DIRECTOR FUNDS DEVELOPMENT CBC WITHOUT DIFFERENTIAL Routine 12/13/2024 5:30 AM DIRECTOR FUNDS DEVELOPMENT from Last 3 Months Results * eGFR (12/17/2024 6:02 AM DIRECTOR FUNDS DEVELOPMENT) eGFR >90 >=60 mL/min/1. 73 m2 USMAN [...] was last reviewed 2021. Testing performed by: [address] [address] Blood 12/17/2024 6:02 AM DIRECTOR FUNDS DEVELOPMENT 12/17/2024 8:21 AM DIRECTOR FUNDS DEVELOPMENT us Notinfile Unknown LAB BLOOD ORDERABLES Final Res ult USMAN [address] [facility] Department [place] [address] * (ABNORMAL) Differential, auto (12/17/2024 6:02 AM DIRECTOR FUNDS DEVELOPMENT) Neutrophil abs 4.0 1.5 - 6.5 K/cumm USMAN Comment:Testing performed by : [address] [address] Imm gran abs 0.0 0.0 - 0.1 K/cumm USMAN Comment:Testing performed by : [address] [address] Lymphocyte abs 2.3 0.8 - 3.3 K/cumm USMAN Comment:Testing performed by : [address] [address] Monocyte abs 1.2(H) 0.2 - 0.8 K/cumm USMAN Comment:Testing performed by : [address] [address] Eosinophil abs 0.3 0.0 - 0.5 K/cumm USMAN Comment:Testing performed by : [address] [address] Basophil abs 0.0 0.0 - 0.1 K/cumm USMAN Comment:Testing performed by : [address] [address] Neutrophil pct 50.7 % USMAN Comment: Interpretive Data Percent cell count reference ranges are not reported, since discordance with absolute values may lead to misinterpretation of CBC data. Current Interpretive Data was last revised on 2018. Testing performed by: [address] [address] Imm gran pct 0.5 % USMAN Comment: Interpretive Data Percent cell count reference ranges are not reported, since discordance with absolute values may lead to misinterpretation of CBC data. Current Interpretive Data was last revised on 2018. Testing performed by: [address] [address] Lymphocyte pct 29.3 % USMAN Comment: Interpretive Data Percent cell count reference ranges are not reported, since discordance with absolute values may lead to misinterpretation of CBC data. Current Interpretive Data was last revised on 2018. Testing performed by: [address] [address] Monocyte pct 14.9 % USMAN Comment: Interpretive Data Percent cell count reference ranges are not reported, since discordance with absolute values may lead to misinterpretation of CBC data. Current Interpretive Data was last revised on 2018. Testing performed by: [address] [address] Eosinophil pct 4.3 % USMAN Comment: Interpretive Data Percent cell count reference ranges are not reported, since discordance with absolute values may lead to misinterpretation of CBC data. Current Interpretive Data was last revised on 2018. Testing performed by: [address] [address] Basophil pct 0.3 % USMAN Comment: Interpretive Data Percent cell count reference ranges are not reported, since discordance with absolute values may lead to misinterpretation of CBC data. Current Interpretive Data was last revised on 2018. Testing performed by: [address] [address] Blood 12/17/2024 6:02 AM DIRECTOR FUNDS DEVELOPMENT 12/17/2024 8:21 AM DIRECTOR FUNDS DEVELOPMENT us Notinfile Unknown LAB BLOOD ORDERABLES Final Res ult USMAN [address] [facility] Department [place] [address] * (ABNORMAL) CBC with auto differential (12/17/2024 6:02 AM DIRECTOR FUNDS DEVELOPMENT) WBC 7.9 3.8 - 9.9 K/cumm USMAN RAND Comment:Testing performed by : [address] [address] Hgb 10.9(L) 13.0 - 17.5 g/dL USMAN RAND Comment:Testing performed by : [address] [address] Hct 34.0(L) 38.9 - 50.3 % USMAN RAND Comment:Testing performed by : [address] [address] Plt 381 150 - 400 K/cumm USMAN Comment:Testing performed by : [address] [address] MPV 10.3 9.1 - 12.3 fL USMAN RAND Comment:Testing performed by : [address] [address] RBC 4.02(L) 4.30 - 5.80 M/cumm USMAN RAND Comment:Testing performed by : [address] [address] MCV 84.6 81.3 - 96.4 fL USMAN Comment:Testing performed by : [address] [address] MCH 27.1 27.1 - 33.3 pg USMAN RAND Comment:Testing performed by : [address] [address] MCHC 32.1(L) 32.3 - 35.7 g/dL [facility]MAN RAND Comment:Testing performed by : [facility], [address] [place] [address]., [address] RDW CV 14.6 11.1 - 14.9 % USMAN RAND Comment:Testing performed by : [address] [address] RDW SD 45.0 35.7 - 48.1 fL USMAN RAND Comment:Testing performed by : [address] [address] NRBC abs 0.00 0.00 - 0.01 K/cumm USMAN Comment:Testing performed by : [address] [address] Blood 12/17/2024 6:02 AM DIRECTOR FUNDS DEVELOPMENT 12/17/2024 8:21 AM DIRECTOR FUNDS DEVELOPMENT us Notinfile Unknown LAB BLOOD ORDERABLES Final Res ult Performing Organization Address [facility]/ZIP Co de Phone Number JONI[address] [place] [address] * (ABNORMAL) Erythrocyte sedimentation rate (12/17/2024 6:02 AM DIRECTOR FUNDS DEVELOPMENT) Erythrocyte sedimentation rate 56(H) 1 - 15 mm/hr USMAN Comment:Testing performed by : [address] [address] Blood 12/17/2024 6:02 AM DIRECTOR FUNDS DEVELOPMENT 12/17/2024 8:21 AM DIRECTOR FUNDS DEVELOPMENT us Notinfile Unknown LAB BLOOD ORDERABLES Final Res ult Performing Organization Address City/[facility] Co de Phone Number [address] [email or web address] [address] * (ABNORMAL) CRP (acute phase) (12/17/2024 6:02 AM DIRECTOR FUNDS DEVELOPMENT) CRP 10.9(H) <=10.0 mg/L USMAN Comment:Testing performed by : [address] [address] Blood 12/17/2024 6:02 AM DIRECTOR FUNDS DEVELOPMENT 12/17/2024 8:21 AM DIRECTOR FUNDS DEVELOPMENT us Notinfile Unknown LAB BLOOD ORDERABLES Final Res ult Performing Organization Address [facility] Co de Phone Number JONI[address] [address] * Uric acid (12/17/2024 6:02 AM DIRECTOR FUNDS DEVELOPMENT) Pathologist [facility] Uric acid 4.7 3.0 - 8.0 mg/dL USMAN Comment:Testing performed by : [address] [address] Blood 12/17/2024 6:02 AM DIRECTOR FUNDS DEVELOPMENT 12/17/2024 8:21 AM DIRECTOR FUNDS DEVELOPMENT us Notinfile Unknown LAB BLOOD ORDERABLES Final Res ult Performing Organization Address [facility] de Phone Number JONI[address] [address] * (ABNORMAL) Comprehensive metabolic panel (12/17/2024 6:02 AM DIRECTOR FUNDS DEVELOPMENT) Pathologist [facility] Sodium 138 135 - 145 mmol/L USMAN Comment:Testing performed by : [address] [address] Potassium, pl 4.4 3.3 - 4.9 mmol/L USMAN Comment:Testing performed by : [address] [address] Chloride 101 97 - 110 mmol/L USMAN Comment:Testing performed by : [address] [address] CO2 27 22 - 32 mmol/L USMAN Comment:Testing performed by : [address] [address] Anion gap 10 2 - 15 mmol/L USMAN Comment:Testing performed by : [address] [address] BUN 13 6 - 25 mg/dL USMAN Comment:Testing performed by : [address] [address] Creatinine 0.67(L) 0.80 - 1.30 mg/dL USMAN Comment:Testing performed by : [address] [address] Glucose 154 70 - 199 mg/dL [facility] Comment: Interpretive Data Fasting glucose >/= 126 [...] classification and Diagnosis of Diabetes Diabetes Care 2021; 46: S19-S40. Current interpretive data was last revised 2022. Testing performed by: [address] [address] Calcium 9.4 8.5 - 10.3 mg/dL [facility] Comment:Testing performed by : [address] [address] Bilirubin, total 0.3 0.1 - 1.2 mg/dL [facility] Comment:Testing performed by : [address] [address] Protein, pl 6.5 6.5 - 8.5 g/dL [facility] Comment:Testing performed by : [address] [address] Albumin 3.5 3.5 - 5.0 g/dL [facility] Comment:Testing performed by : [address] [address] Alk phos 598(H) 40 - 130 Units/L [facility] Comment:Testing performed by : [address] [address] ALT 78(H) 7 - 55 Units/L [facility] Comment:Testing performed by : [address] [address] AST 87(H) 10 - 50 Units/L [facility] Comment:Testing performed by : [address] [address] Blood 12/17/2024 6:02 AM DIRECTOR FUNDS DEVELOPMENT 12/17/2024 8:21 AM DIRECTOR FUNDS DEVELOPMENT us Notinfile Unknown LAB BLOOD ORDERABLES Final Res ult USMAN [address] [facility] Department [place] [address] * (ABNORMAL) Basic metabolic panel (12/17/2024 6:02 AM DIRECTOR FUNDS DEVELOPMENT) Sodium 138 135 - 145 mmol/L [facility] Comment:Testing performed by : [address] [address] Potassium, pl 4.4 3.3 - 4.9 mmol/L [facility] Comment:Testing performed by : [address] [address] Chloride 101 97 - 110 mmol/L [facility] Comment:Testing performed by : [address] [address] CO2 27 22 - 32 mmol/L [facility] Comment:Testing performed by : [address] [address] Anion gap 10 2 - 15 mmol/L [facility] Comment:Testing performed by : [address] [address] BUN 13 6 - 25 mg/dL [facility] Comment:Testing performed by : [address] [address] Creatinine 0.67(L) 0.80 - 1.30 mg/dL [facility] Comment:Testing performed by : [address] [address] Glucose 154 70 - 199 mg/dL USMAN [...] was last revised 2022. Testing performed by: [facility], [address] [place] [address]., [address] Calcium 9.4 8.5 - 10.3 mg/dL [facility] RAND Comment:Testing performed by : [address] [address] Blood 12/17/2024 6:02 AM DIRECTOR FUNDS DEVELOPMENT 12/17/2024 8:21 AM DIRECTOR FUNDS DEVELOPMENT us Notinfile Unknown LAB BLOOD ORDERABLES Final Res ult USMAN RAND [address] [facility] Department [place] [address] * eGFR (12/13/2024 5:30 AM DIRECTOR FUNDS DEVELOPMENT) eGFR >90 >=60 mL/min/1. 73 m2 USMAN [...] was last reviewed 2021. Testing performed by: [address] [address] Blood 12/13/2024 5:30 AM DIRECTOR FUNDS DEVELOPMENT 12/13/2024 8:39 AM DIRECTOR FUNDS DEVELOPMENT us Notinfile Unknown LAB BLOOD ORDERABLES Final Res ult USMAN RAND [address] [facility] Department [place] [address] * (ABNORMAL) CBC without differential (12/13/2024 5:30 AM DIRECTOR FUNDS DEVELOPMENT) WBC 9.3 3.8 - 9.9 K/cumm [facility]AN RAND Comment:Testing performed by : [address] [address] Hgb 10.5(L) 13.0 - 17.5 g/dL [facility]AND Comment:Testing performed by : [address] [address] Hct 32.6(L) 38.9 - 50.3 % [facility] RAND Comment:Testing performed by : [address] [address] Plt 458(H) 150 - 400 K/cumm [facility]MAN RAND Comment:Testing performed by : [address] [address] MPV 10.2 9.1 - 12.3 fL [facility] RAND Comment:Testing performed by : [address] [address] RBC 3.88(L) 4.30 - 5.80 M/cumm [facility]MAN RAND Comment:Testing performed by : [address] [address] MCV 84.0 81.3 - 96.4 fL [facility] RAND Comment:Testing performed by : [address] [address] MCH 27.1 27.1 - 33.3 pg [facility] RAND Comment:Testing performed by : [address] [address] MCHC 32.2(L) 32.3 - 35.7 g/dL [facility] RAND Comment:Testing performed by : [address], [address] RDW CV 14.6 11.1 - 14.9 % [facility] RAND Comment:Testing performed by : [address] [address] RDW SD 44.4 35.7 - 48.1 fL [facility] RAND Comment:Testing performed by : [address] [address] NRBC abs 0.00 0.00 - 0.01 K/cumm [facility]MAN RAND Comment:Testing performed by : [address] [address] Blood 12/13/2024 5:30 AM DIRECTOR FUNDS DEVELOPMENT 12/13/2024 8:39 AM DIRECTOR FUNDS DEVELOPMENT us Notinfile Unknown LAB BLOOD ORDERABLES Final Res ult USMAN RAND [facility] Department [place] [address] * (ABNORMAL) Comprehensive metabolic panel (12/13/2024 5:30 AM DIRECTOR FUNDS DEVELOPMENT) Sodium 139 135 - 145 mmol/L [facility] RAND Comment:Testing performed by : [address] [address] Potassium, pl 4.5 3.3 - 4.9 mmol/L [facility]AND Comment:Testing performed by : [address] [address] Chloride 100 97 - 110 mmol/L [facility] Comment:Testing performed by : [address] [address] CO2 27 22 - 32 mmol/L [facility] Comment:Testing performed by : [address] [address] Anion gap 12 2 - 15 mmol/L [facility] RAND Comment:Testing performed by : [address] [address] BUN 11 6 - 25 mg/dL [facility] RAND Comment:Testing performed by : [address] [address] Creatinine 0.50(L) 0.80 - 1.30 mg/dL [facility] RAND Comment:Testing performed by : [address] [address] Glucose 127 70 - 199 mg/dL USMAN [...] classification and Diagnosis of Diabetes Diabetes Care 2021; 46: S19-S40. Current interpretive data was last revised 2022. Testing performed by: [address] [address] Calcium 9.6 8.5 - 10.3 mg/dL [facility]MAN Comment:Testing performed by : [address] [address] Bilirubin, total 0.4 0.1 - 1.2 mg/dL [facility]MAN Comment:Testing performed by : [address] [address] Protein, pl 6.6 6.5 - 8.5 g/dL [facility] Comment:Testing performed by : [address] [address] Albumin 3.6 3.5 - 5.0 g/dL [facility] Comment:Testing performed by : [address] [address] Alk phos 802(H) 40 - 130 Units/L [facility] Comment:Testing performed by : [address] [address] ALT 57(H) 7 - 55 Units/L [facility]MAN Comment:Testing performed by : [address] [address] AST 76(H) 10 - 50 Units/L [facility]MAN Comment:Testing performed by : [address] [address] Blood 12/13/2024 5:30 AM DIRECTOR FUNDS DEVELOPMENT 12/13/2024 8:39 AM DIRECTOR FUNDS DEVELOPMENT us Notinfile Unknown LAB BLOOD ORDERABLES Final Res ult USMAN [address] [facility] Department [place] [address] from Last 3 Months Insurance [facility] Care Teams Reconsignment Clerk Relationship Specialty Start Date End Date Matthew Sorenson PA [address] [place] [address] PCP - General Family Practice 05/04/23 Matthew Sorenson PA [address] [place] [address] Family Practice 09/12/22
--- OUTSIDE RECORDS SUMMARY | 2025-03-11 20:01 | XMS_ITS | Encounter Summary ---
Author Organization [facility] Address [address] [facility] [place] [address] Care Team Providers Care Stone Trimmer Name Role Phone Matthew Sorenson Primary Care Provider [phone] Jose Luis Brooks MD Unavailable [phone] Abelardo Presley MD Unavailable [phone] Bo Francisco MD Unavailable [phone] Angie Rogers MD Unavailable Katie GutierrezD Unavailable Unavaila Jaja Casillas RN Unavailable Unavailable Abimbola Waters HIGHWAY INSPECTOR-GLUE BONE CRUSHER Unavailable [phone] INSPECTOR-GLUE BONE CRUSHER Unavailable [phone] Marilyn Bennett RN Unavailable Unavailable Erasmo Roberson RN Unavailable Unavailable Alexandra Cota RN Unavailable Unavailable Alda Braswell Unavailable Unavailable Lucia Sharif LCSW Unavailable Unavailab le Reason for Visit * Reason Onset Date Comments MEDICATION REFILL 10/20/2024 Encounter Details Date Type Department Care Team (Late st Contact Info) Description 10/20/2024 Refill [facility] [place] [address] [place] [address] Gina Denton MD [address] [place] [address] MEDICATION REFILL Social History Tobacco Use Types [...] Recorded Patient Health Questionnaire-2 Score 1 08/12/2024 [facility] - [...] place to sleep or slept in a jail (including now)? No 06/04/2024 Housing Stability Vital [...] time in the past [address] [facility], were you homeless or living in a jail (including now)? No 10/24/2024 Sex and Gender Information Value Date Recorded Sex Assigned at Not on file Legal Sex Male 11:44 AM HABITAT MANAGEMENT COORDINATOR Gender Identity Not on file Sexual [...] Info) Description 04/06/2025 8:40 AM CDT Appointment [facility] CAT SCAN [address] [place] [address] Arya Rm MD [address] [place] [address] [place] [address] 04/06/2025 9:15 AM CDT Office Visit [facility] - Neurosurgery [facility] [facility], [place] [phone] Arya Rm MD [address] [place] [address] [address] [place] [address] 05/28/2025 2:30 PM CDT Office Visit [facility] - Infectious Disease [address] [place] [address], [place] [address] Cristian Mcmillan MD [address] [place] [address] documented as of this encounter Visit Diagnoses Not on filedocumented in this encounter Additional Health Concerns Infection Onset Date Last Indicated Resolved Time 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 CDIFF Under Investigation 01/13/2025 01/13/2025 7:19 PM CDT COVID-19 Under Investigation 01/13/2025 01/13/2025 01/13/2025 4:01 PM CDT COVID-19 Under Investigation 02/12/2025 02/12/2025 02/12/2025 4:07 PM CDT documented as of this encounter Care Teams Stone Trimmer Relationship Specialty Start Date End Date Matthew Sorenson PA [address] [place] [address] PCP - General 02/02/22 Jose Luis Brooks MD [address] [place] [address] Assistant Merchandiser/Oncologis t Hematology and Oncology 08/29/24 Abelardo Presley MD [address] [place] [address] Hematology and Oncology 08/29/24 03/04/25 Bo Francisco MD [address] [place] [phone] Hematology and Oncology 08/29/24 03/04/25 Anige Rogers MD [address] [place] [phone] Physician Hematology and Oncology 08/29/24 03/04/25 Katie Gutierrez, PharmD 08/29/24 03/04/25 Jaja Rayo, RN Registered Nurse 08/29/24 03/04/25 Abimbola Waters APRN-GLUE BONE CRUSHER [address] [place] [address] Nurse Practitioner Nurse Practitioner 08/29/24 03/04/25 Perri Dexter, DAYNA-GLUE BONE CRUSHER [address] [place] [phone] Nurse Practitioner Nurse Practitioner 08/29/24 03/04/25 Marilyn Bennett, RN Coordinator 08/29/24 Erasmo Roberson, RN Registered Nurse 08/29/24 03/04/25 Alexandra Cota, RN Registered Nurse 08/29/24 03/04/25 Alda Braswell 08/29/24 03/04/25 Lucia Sharif, PAPER INSPECTOR First Assistant Manager 08/29/24 03/04/25 documented as of this encounter
--- OUTSIDE RECORDS SUMMARY | 2025-03-11 20:01 | XMS_ITS ---
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 Previous source thought to be sternal soft tissue lesion with abscess formation; s/p I&D 09/15/24 and port removal 09/02/24 - Repeat PET 10/28/24 shows resolving sternal abscess however increased FDG uptake in L3 and L4 vertebral bodies concerning for new area of infection - TTE 10/27 negative for vegetation - MRSA isolate has elevated MICs to both Vanc and Dapto; however confirmed sensitivity to Ceftaroline per Micro - S/P IV Vanc (10/25-10/27); developed Flako's syndrome. Vanc stopped given persistent bacteremia, S/P Dapto (10/27-10/29). Chest wall abscess 09/24/2024 Multiple myeloma not having achieved remission 1 Tobacco use 07/26/2024 Acute back pain, unspecified back location, unspecified back pain laterality 07/23/2024 Type 2 diabetes mellitus wit hout complication, without long-term current use of insulin 06/28/2024 History of multiple myeloma 06/27/2024 Lytic bone lesions on xray 06/03/2024 Acute midline low back pain with left-sided scia alejandro 06/03/2024 Hypertension 06/03/2024 Hepatitis C virus infection without hepatic coma 06/03/2024 Current Treatment and Therapy Plans MULTIPLE MYELOMA (BORTEZOMIB LENALIDOMIDE DEXAMETHASONE) Q21 DAYS (VRD-CLASSICAL)* Plan Start Date:08/11/2024 Plan Provider:Jose Luis Brooks MD Linked Problems Multiple myeloma not having achieved remission (HCC) Treatment Medications bortezomib (Velcade) SUPPORT (ZOLEDRONIC ACID) Q28 DAYS (ZOMETA)* Plan Start Date:08/11/2024 Plan Provider:Jose Luis Brooks MD Linked Problems Multiple myeloma not having achieved remission (HCC)Lytic bone lesions on xray Treatment Medications Current Day (Day 1 , Cycle 3 - Planned for 11/04/2024) Next Day (Day 1, Cycle 4 - Planned for 12/02/2024) No medications scheduled. No medications schedul ed. No medications scheduled. Past Treatment and Therapy Plans Lifetime Dose Tracking * Chemical Lifetime Dose Automatic Entry Manual Entr y Dose Length Product 3,610.9 mGy-cm 3,610.9 mGy-cm 0 mG y-cm Resolved Problems Problem Noted Date Diagnosed Date Resolved Date Elevated LFTs 11/20/2024 11/24/2024 Acute septic pulmonary embol ism without acute cor pulmonale 10/14/2024 11/24/2024 Infection of venous access port 08/30/2024 11/24/2024 Chemotherapy induced nausea and vomiting 08/22/2024 11/24/2024 Episodic cluster headache, not intractable 07/26/2024 11/24/2024 Polydipsia 06/27/2024 11/24/2024 Polyuria 06/27/2024 11/24/2024 Hyperglycemia 06/27/2024 11/24/2024 Trauma 06/03/2024 11/24/2024 Closed fracture of third lum bar vertebra, unspecified fracture morphology, initial encounter 06/03/2024 11/24/2024 Migraine 01/11/2022 11/24/2024
--- OUTSIDE RECORDS SUMMARY | 2025-03-11 20:01 | XMS_ITS ---
"CDT [facility] Not Available Not Available 01/26/2025 15:49:05 01/14/20 25 01/15/2025 Prote in [facility] resis panel - Serum or Plasm a beta globulins 0.7 g/dL low: 0.6g/d Lhigh: 1.1g/d L Beta Globu michael 0.7 0.6 - 1.1 g/dL 01/15 2:58 PM CDT [facility] Not Available Not Available 01/26/2025 15:49:05 01/14/20 25 01/15/2025 Prote in [facility] resis panel - Serum or Plasm a gamma globulins 0.9 g/dL low: 0.6g/d Lhigh: 1.6g/d L Gamma Globu michael 0.9 0.6 - 1.6 g/dL 01/15 2:58 PM CDT [facility] PABLO Not Available Not Available 01/26/2025 15:49:05 01/14/20 25 01/15/2025 Prote in [facility] resis panel - Serum or Plasm a interpretati on and review of laboratory results Abnorm al Not Available Not Available 15:49:05 01/14/20 25 01/13/2025 Compr ehens khari metab olic 1999 panel - Serum or Plasm a urea nitrogen [mass/volume ] in serum or plasma 15 mg/dL low: 7mg/dL high: 26mg/d L BUN 15 7 - 26 mg/dL 01/13 12:07 PM CDT [facility] PABLO Not Available Not Available 01/26/2025 15:49:05 01/14/20 25 01/13/2025 Compr ehens khari metab olic 1999 panel - Serum or Plasm a creatinine [mass/volume ] in serum or plasma 0.79 mg/dL low: 0.71mg /dLhig h: 1.16mg /dL Creat inine 0.79 0.71 - 1.16 mg/dL 01/13 12:07 PM CDT [facility] PABLO Not Available Not Available 01/26/2025 15:49:05 01/14/20 25 01/13/2025 Compr ehens khari metab olic 1999 panel - Serum or Plasm a sodium [moles/volum e] in serum or plasma 138 mmol/ L low: 136mmo l/Lhig h: 145mmo l/L Sodiu m 138 136 - 145 mmol/ L 01/13 12:07 PM CDT [facility] PABLO Not Available Not Available 01/26/2025 15:49:05 01/14/20 25 01/13/2025 Compr ehens khari metab olic 1999 panel - Serum or Plasm a potassium [moles/volum e] in serum or plasma 4 mmol/ L low: 3.5mmo l/Lhig h: 4.5mmo l/L Potas sium 4.0 3.5 - 4.5 mmol/ L 01/13 12:07 PM CDT [facility] PABLO Not Available Not Available 01/26/2025 15:49:05 01/14/20 25 01/13/2025 Compr ehens khari metab olic 1999 panel - Serum or Plasm a chloride [moles/volum e] in serum or plasma 105 mmol/ L low: 98mmol /Lhigh : 107mmo l/L Chlor chuck 105 98 - 107 mmol/ L 01/13 12:07 PM T [facility] PABLO Not Available Not Available 01/26/2025 15:49:05 01/14/20 25 01/13/2025 Compr ens khari metab olic 1999 panel - Serum or Plasm a carbon dioxide, total [moles/volum e] in serum or plasma 21 mmol/ L low: 22mmol /Lhigh : 29mmol /L low CO2 21 (L) 22 - 29 mmol/ L 01/13 12:07 PM CDT [facility] PABLO Not Available Not Available 01/26/2025 15:49:05 01/14/20 25 01/13/2025 Compr ehens khari metab olic 1999 panel - Serum or Plasm a glucose [mass/volume ] in serum or plasma 228 mg/dL low: 70mg/d Lhigh: 99mg/d L high Gluco se 228 (H) 70 - 99 mg/dL 01/13 12:07 PM CDT [facility] PABLO Not Available Not Available 01/26/2025 15:49:05 01/14/20 25 01/13/2025 Compr ehens khari metab olic 2000 panel - Serum or Plasm a calcium [moles/volum e] in serum or plasma 9.3 mg/dL low: 8.4mg/ dLhigh : 10.2mg /dL Calci um 9.3 8.4 - 10.2 mg/dL 01/13 12:07 PM CDT [facility] PABLO Not Available Not Available 01/26/2025 15:49:05 01/14/20 25 01/13/2025 Compr ehens khari metab olic 2000 panel - Serum or Plasm a protein [mass/volume ] in serum or plasma 7.1 g/dL low: 6g/dLh igh: 8.3g/d L Prote in Total 7.1 6.0 - 8.3 g/dL 01/13 12:07 PM CDT [facility] PABLO Not Available Not Available 01/26/2025 15:49:05 01/14/20 25 01/13/2025 Compr ehens khari metab olic 2000 panel - Serum or Plasm a albumin [mass/volume ] in serum or plasma by bromocresol green (bcg) dye binding method 3.7 g/dL low: 3.4g/d Lhigh: 5g/dL Album in 3.7 3.4 - 5.0 g/dL 01/13 12:07 PM CDT [facility] PABLO Not Available Not Available 01/26/2025 15:49:05 01/14/20 25 01/13/2025 Compr ehens khari metab olic 2000 panel - Serum or Plasm a bilirubin.to pablo [mass/volume ] in serum or plasma 0.4 mg/dL low: 0.2mg/ dLhigh : 1.2mg/ dL Bilir ubin Total 0.4 0.2 - 1.2 mg/dL 01/13 12:07 PM CDT [facility] PABLO Not Available Not Available 01/26/2025 15:49:05 01/14/20 25 01/13/2025 Compr ehens khari metab olic 2000 panel - Serum or Plasm a alkaline phosphatase [enzymatic activity/vol ume] in serum or plasma 286 U/L low: 40U/Lh igh: 150U/L high Alkal ine Phosp hatas e 286 (H) 40 - 150 U/L 01/13 12:07 PM CDT [facility] PABLO Not Available Not Available 01/26/2025 15:49:05 01/14/20 25 01/13/2025 Compr ehens khari metab olic 1999 panel - Serum or Plasm a alanine aminotransfe rase [enzymatic activity/vol ume] in serum or plasma by no addition of P-5'-P 71 U/L low: 5U/Lhi gh: 55U/L high ALT 71 (H) 5 - 55 U/L 01/13 12:07 PM CDT [facility] PABLO Not Available Not Available 01/26/2025 15:49:05 01/14/20 25 01/13/2025 Compr ehens khari metab olic 1999 panel - Serum or Plasm a aspartate aminotransfe rase [enzymatic activity/vol ume] in serum or plasma 54 U/L low: 5U/Lhi gh: 34U/L high AST 54 (H) 5 - 34 U/L 01/13 12:07 PM CDT [facility] PABLO Not Available Not Available 01/26/2025 15:49:05 01/14/20 25 01/13/2025 Compr ehens khari metab olic 1999 panel - Serum or Plasm a anion gap 12 low: 6high: 16 Anion Gap 12 6 - 16 01/13 12:07 PM CDT [facility] PABLO Not Available Not Available 01/26/2025 15:49:05 01/14/20 25 01/13/2025 Compr ehens khari metab olic 1999 panel - Serum or Plasm a urea nitrogen/cre atinine [mass ratio] in serum or plasma 19 low: 7high: 23 BUN/C reati nine Ratio 19 7 - 23 01/13 12:07 PM CDT [facility] PABLO Not Available Not Available 01/26/2025 15:49:05 01/14/20 25 01/13/2025 Compr ehens khari metab olic 2000 panel - Serum or Plasm a osmolality calculated 294 text: 275 - 295 mOsm/k g Osmol wesley Hartman lated 294 275 - 295 mOsm/ kg 01/13 12:07 PM T [facility] PABLO Not Available Not Available 01/26/2025 15:49:05 01/14/20 25 01/13/2025 Compr ens khari metab olic 1999 panel - Serum or Plasm a albumin/glob ulin ratio 1.1 low: 1.1hig h: 2.3 Album in/Gl obuli n Ratio 1.1 1.1 - 2.3 01/13 12:07 PM T [facility] PABLO Not Available Not Available 01/26/2025 15:49:05 01/14/20 25 01/13/2025 Compr LEHR khari metab olic 1999 panel - Serum or Plasm a glomerular filtration rate [volume rate/area] in serum, plasma or blood by creatinine-b ased formula (CKD-epi 2020)/1.73 sq M text: >=90 mL/min /1.73 m2 eGFR by CKD-E PI >90 >=90 mL/mi n/1.7 3 m2 01/13 12:07 PM [facility] [employer] [facility] PABLO Not Available Not Available 01/26/2025 15:49:05 01/14/20 25 01/13/2025 Compr LEHR khari [employer] olic 2000 panel - Serum or Plasm a interpretati on and review of laboratory results Abnorm al Not Available Not Available 15:49:05 01/14/20 25 01/13/2025 Phosp hate [Mass /volu me] in Serum or Plasm a phosphate [mass/volume ] in serum or plasma 2.1 mg/dL low: 2.8mg/ dLhigh : 5.1mg/ dL low Phosp horus 2.1 (L) 2.8 - 5.1 mg/dL 01/13 12:07 PM [facility] [employer] [facility] PABLO Not Available Not Available 01/26/2025 15:49:05 01/14/20 25 01/13/2025 Phosp hate [Mass /volu me] in Serum or Plasm a interpretati on and review of laboratory results Abnorm al Not Available Not Available 15:49:05 01/14/20 25 01/13/2025 Magne sium [Mass /volu me] in Serum or Plasm a magnesium [mass/volume ] in serum or plasma 1.4 mg/dL low: 1.6mg/ dLhigh : 2.6mg/ dL low Magne sium 1.4 (L) 1.6 - 2.6 mg/dL 01/13 12:07 PM CDT [facility] PABLO Not Available Not Available 01/26/2025 15:49:05 01/14/20 25 01/13/2025 Magne sium [Mass /volu me] in Serum or Plasm a interpretati on and review of laboratory results Abnorm al Not Available Not Available 15:49:05 01/14/20 25 01/13/2025 CBC W Auto Diffe renti al panel - Blood leukocytes [#/volume] in blood by automated count 10.1 text: 4.0 - 10.7 x10e9/ L WBC 10.1 4.0 - 10.7 x10E9 /L 01/13 11:36 AM CDT [facility] Not Available Not Available 01/26/2025 15:49:05 01/14/20 25 01/13/2025 CBC W Auto Diffe renti al panel - Blood erythrocytes [#/volume] in blood by automated count 5.17 text: 4.30 - 5.80 x10e12 /L RBC Count 5.17 4.30 - 5.80 x10E1 2/L 01/13 11:36 AM T [facility] Not Available Not Available 01/26/2025 15:49:05 01/14/20 25 01/13/2025 CBC W Auto Diffe renti al panel - Blood hemoglobin [mass/volume ] in blood 14.3 g/dL low: 13.3g/ dLhigh : 17.5g/ dL Hemog lobin 14.3 13.3 - 17.5 g/dL 01/13 11:36 AM CDT [facility] PABLO Not Available Not Available 01/26/2025 15:49:05 01/14/20 25 01/13/2025 CBC W Auto Diffe renti al panel - Blood hematocrit [volume fraction] of blood by automated count 42.3 % low: 38.7%h igh: 51.1% Hemat ocrit 42.3 38.7 - 51.1 % 01/13 11:36 AM [facility] Not Available Not Available 01/26/2025 15:49:05 01/14/20 25 01/13/2025 CBC W Auto Diffe renti al panel - Blood MCV [entitic mean volume] in red blood cells by automated count 81.8 fL low: 80fLhi gh: 98fL MCV 81.8 80.0 - 98.0 fL 01/13 11:36 AM [facility] Not Available Not Available 01/26/2025 15:49:05 01/14/20 25 01/13/2025 CBC W Auto Diffe sadi al panel - Blood MCH [entitic mass] by automated count 27.7 pg low: 26.7pg high: 33.6pg MCH 27.7 26.7 - 33.6 pg 01/13 11:36 AM T [facility] Not Available Not Available 01/26/2025 15:49:05 01/14/20 25 01/13/2025 CBC W Auto Diffe shirleyti al panel - Blood MCHC [entitic mass/volume] in red blood cells by automated count 33.8 g/dL low: 31.7g/ dLhigh : 36.3g/ dL MCHC 33.8 31.7 - 36.3 g/dL 01/13 11:36 AM CDT [facility] Not Available Not Available 01/26/2025 15:49:05 01/14/20 25 01/13/2025 CBC W Auto Diffe renti al panel - Blood erythrocyte [distwidth] in red blood cells by automated count 14.1 % low: 11.3%h igh: 14.8% RDW-C V 14.1 11.3 - 14.8 % 01/13 11:36 AM T [facility] Not Available Not Available 01/26/2025 15:49:05 01/14/20 25 01/13/2025 CBC W Auto Diffe renti al panel - Blood platelets [#/volume] in blood by automated count 298 text: 150 - 420 x10e9/ L Plate let Count 298 150 - 420 x10E9 /L 01/13 11:36 AM CDT [facility] PABLO Not Available Not Available 01/26/2025 15:49:05 01/14/20 25 01/13/2025 CBC W Auto Diffe renti al panel - Blood platelet [entitic mean volume] in blood by automated count 10.6 fL low: 7.8fLh igh: 11.4fL MPV 10.6 7.8 - 11.4 fL 01/13 11:36 AM CDT [facility] PABLO Not Available Not Available 01/26/2025 15:49:05 01/14/20 25 01/13/2025 CBC W Auto Diffe renti al panel - Blood neutrophils [#/volume] in blood by automated count 9.05 text: 1.60 - 7.50 x10e9/ L high Preli minar y Absol eagle Neutr ophil 9.05 (H) 1.60 - 7.50 x10E9 /L 01/13 11:36 AM CDT [facility] PABLO Not Available Not Available 01/26/2025 15:49:05 01/14/20 25 01/13/2025 CBC W Auto Diffe renti al panel - Blood neutrophils/ leukocytes in blood by automated count 90 % low: 41%hig h: 74% high Neutr ophil % 90.0 (H) 41.0 - 74.0 % 01/13 11:36 AM CDT [facility] PABLO Not Available Not Available 01/26/2025 15:49:05 01/14/20 25 01/13/2025 CBC W Auto Diffe renti al panel - Blood lymphocytes/ leukocytes in blood by automated count 6 % low: 17%hig h: 47% low Lymph ocyte % 6.0 (L) 17.0 - 47.0 % 01/13 11:36 AM CDT [facility] PABLO Not Available Not Available 01/26/2025 15:49:05 01/14/20 25 01/13/2025 CBC W Auto Diffe renti al panel - Blood monocytes/le ukocytes in blood by automated count 3.3 % low: 3%high : 11% Monoc yte % 3.3 3.0 - 11.0 % 01/13 11:36 AM CDT [facility] PABLO Not Available Not Available 01/26/2025 15:49:05 01/14/20 25 01/13/2025 CBC W Auto Diffe renti al panel - Blood eosinophils/ leukocytes in blood by automated count 0.2 % low: 0%high : 7% Eosin ophil % 0.2 0.0 - 7.0 % 01/13 11:36 AM CDT [facility] PABLO Not Available Not Available 01/26/2025 15:49:05 01/14/20 25 01/13/2025 CBC W Auto Diffe renti al panel - Blood basophils/le ukocytes in blood by automated count 0.1 % low: 0%high : 1.6% Basop hil % 0.1 0.0 - 1.6 % 01/13 11:36 AM CDT [facility] PABLO Not Available Not Available 01/26/2025 15:49:05 01/14/20 25 01/13/2025 CBC W Auto Diffe renti al panel - Blood immature granulocytes /leukocytes in blood by automated count 0.4 % low: 0%high : 1% Immat ure Granu locyt es % 0.4 0.0 - 1.0 % 01/13 11:36 AM CDT [facility] PABLO Not Available Not Available 01/26/2025 15:49:05 01/14/20 25 01/13/2025 CBC W Auto Diffe renti al panel - Blood neutrophils [#/volume] in blood by automated count 9.05 text: 1.60 - 7.50 x10e9/ L high Neutr ophil Absol eagle 9.05 (H) 1.60 - 7.50 x10E9 /L 01/13 11:36 AM CDT [facility] PABLO Not Available Not Available 01/26/2025 15:49:05 01/14/20 25 01/13/2025 CBC W Auto Diffe renti al panel - Blood lymphocytes [#/volume] in blood by automated count 0.6 text: 1.00 - 4.40 x10e9/ L low Lymph ocyte Absol eagle 0.60 (L) 1.00 - 4.40 x10E9 /L 01/13 11:36 AM CDT [facility] Not Available Not Available 01/26/2025 15:49:05 01/14/20 25 01/13/2025 CBC W Auto Diffe renti al panel - Blood monocytes [#/volume] in blood by automated count 0.33 text: 0.15 - 1.00 x10e9/ L Monoc yte Absol eagle 0.33 0.15 - 1.00 x10E9 /L 01/13 11:36 AM [facility] Not Available Not Available 01/26/2025 15:49:05 01/14/20 25 01/13/2025 CBC W Auto Diffe renti al panel - Blood eosinophils [#/volume] in blood 0.02 text: 0.00 - 0.60 x10e9/ L Eosin ophil Absol eagle 0.02 0.00 - 0.60 x10E9 /L 01/13 11:36 AM CDT [facility] Not Available Not Available 01/26/2025 15:49:05 01/14/20 25 01/13/2025 CBC W Auto Diffe renti al panel - Blood basophils [#/volume] in blood by automated count 0.01 text: 0.00 - 0.13 x10e9/ L Basop hil Absol eagle 0.01 0.00 - 0.13 x10E9 /L 01/13 11:36 AM [facility] Not Available Not Available 01/26/2025 15:49:05 01/14/20 25 01/13/2025 CBC W Auto Diffe renti al panel - Blood interpretati on and review of laboratory results Abnorm al Not Available Not Available 15:49:05 01/14/20 25 01/13/2025 Respi rator y patho gens DNA and RNA panel - Nasop haryn x by CARLINE with non-p robe detec tion adenovirus DNA [presence] in specimen by CARLINE with probe detection Not detect ed text: not detect ed Adeno virus PCR Not detec vishal Not detec vishal 01/13 4:01 PM CDT [facility] Not Available Not Available 01/26/2025 15:49:05 01/14/20 25 01/13/2025 Respi rator y patho gens DNA and RNA panel - Nasop haryn x by CARLINE with non-p robe detec tion human coronavirus 229E RNA [presence] in specimen by CARLINE with probe detection Not detect ed text: not detect ed Coron aviru s 229E PCR Not detec vishal Not detec vishal 01/13 4:01 PM CDT [facility] Not Available Not Available 01/26/2025 15:49:05 01/14/20 25 01/13/2025 Respi rator y patho gens DNA and RNA panel - Nasop haryn x by CARLINE with non-p robe detec tion human coronavirus hku1 RNA [presence] in specimen by CARLINE with probe detection Not detect ed text: not detect ed Coron aviru s HKU1 PCR Not detec vishal Not detec vishal 01/13 4:01 PM CDT [facility] Not Available Not Available 01/26/2025 15:49:05 01/14/20 25 01/13/2025 Respi rator y patho gens DNA and RNA panel - Nasop haryn x by CARLINE with non-p robe detec tion human coronavirus nl63 RNA [presence] in specimen by CARLINE with probe detection Not detect ed text: not detect ed Coron aviru s NL63 PCR Not detec vishal Not detec vishal 01/13 4:01 PM CDT [facility] Not Available Not Available 01/26/2025 15:49:05 01/14/20 25 01/13/2025 Respi rator y patho gens DNA and RNA panel - Nasop haryn x by CARLINE with non-p robe detec tion human coronavirus oc43 RNA [presence] in specimen by CARLINE with probe detection Not detect ed text: not detect ed Coron aviru s OC43 PCR Not detec vishal Not detec vishal 01/13 4:01 PM CDT [facility] Not Available Not Available 01/26/2025 15:49:05 01/14/20 25 01/13/2025 Respi rator y patho gens DNA and RNA panel - Nasop haryn x by CARLINE with non-p robe detec tion sars-cov-2 (covid-19) RNA [presence] in respiratory system specimen by CARLINE with probe detection Not detect ed text: not detect ed COVID -19 PCR Not detec vishal Not detec vishal 01/13 4:01 PM CDT [facility] Not Available Not Available 01/26/2025 15:49:05 01/14/20 25 01/13/2025 Respi rator y patho gens DNA and RNA panel - Nasop haryn x by CARLINE with non-p robe detec tion human metapneumovi kale RNA [presence] in specimen by CARLINE with probe detection Not detect ed text: not detect ed Human Metap neumo virus PCR Not detec vishal Not detec vishal 01/13 4:01 PM CDT [facility] Not Available Not Available 01/26/2025 15:49:05 01/14/20 25 01/13/2025 Respi rator y patho gens DNA and RNA panel - Nasop haryn x by CARLINE with non-p robe detec tion rhinovirus+e nterovirus RNA [presence] in specimen by CARLINE with probe detection Not detect ed text: not detect ed Human Rhino virus /Ente rovir us PCR Not detec vishal Not detec vishal 01/13 4:01 PM CDT [facility] Not Available Not Available 01/26/2025 15:49:05 01/14/20 25 01/13/2025 Respi rator y patho gens DNA and RNA panel - Nasop haryn x by CARLINE with non-p robe detec tion influenza virus A RNA [presence] in specimen by CARLINE with probe detection Not detect ed text: not detect ed Influ gian A PCR Not detec vishal Not detec vishal 01/13 4:01 PM CDT [facility] Not Available Not Available 01/26/2025 15:49:05 01/14/20 25 01/13/2025 Respi rator y patho gens DNA and RNA panel - Nasop haryn x by CARLINE with non-p robe detec tion influenza virus B RNA [presence] in specimen by CARLINE with probe detection Not detect ed text: not detect ed Influ gian B PCR Not detec vishal Not detec vishal 01/13 4:01 PM CDT [facility] Not Available Not Available 01/26/2025 15:49:05 01/14/20 25 01/13/2025 Respi rator y patho gens DNA and RNA panel - Nasop haryn x by CARLINE with non-p robe detec tion parainfluenz a virus 1 RNA [presence] in specimen by CARLINE with probe detection Not detect ed text: not detect ed Parai nflue nza Virus 1 PCR Not detec vishal Not detec vishal 01/13 4:01 PM CDT [facility] Not Available Not Available 01/26/2025 15:49:05 01/14/20 25 01/13/2025 Respi rator y patho gens DNA and RNA panel - Nasop haryn x by CARLINE with non-p robe detec tion parainfluenz a virus 2 RNA [presence] in specimen by CARLINE with probe detection Not detect ed text: not detect ed Parai nflue nza Virus 2 PCR Not detec vishal Not detec vishal 01/13 4:01 PM CDT [facility] Not Available Not Available 01/26/2025 15:49:05 01/14/20 25 01/13/2025 Respi rator y patho gens DNA and RNA panel - Nasop haryn x by CARLINE with non-p robe detec tion parainfluenz a virus 3 RNA [presence] in specimen by CARLINE with probe detection Not detect ed text: not detect ed Parai nflue nza Virus 3 PCR Not detec vishal Not detec vishal 01/13 4:01 PM CDT [facility] Not Available Not Available 01/26/2025 15:49:05 01/14/20 25 01/13/2025 Respi rator y patho gens DNA and RNA panel - Nasop haryn x by CARLINE with non-p robe detec tion parainfluenz a virus 4 RNA [presence] in specimen by CARLINE with probe detection Not detect ed text: not detect ed Parai nflue nza Virus 4 PCR Not detec vishal Not detec vishal 01/13 4:01 PM CDT [facility] Not Available Not Available 01/26/2025 15:49:05 01/14/20 25 01/13/2025 Respi rator y patho gens DNA and RNA panel - Nasop haryn x by CARLINE with non-p robe detec tion respiratory syncytial virus RNA [presence] in specimen by CARLINE with probe detection Not detect ed text: not detect ed Respi rator y Syncy tial Virus PCR Not detec vishal Not detec vishal 01/13 4:01 PM CDT [facility] Not Available Not Available 01/26/2025 15:49:05 01/14/20 25 01/13/2025 Respi rator y patho gens DNA and RNA panel - Nasop haryn x by CARLINE with non-p robe detec tion bordetella parapertussi s DNA [presence] in specimen by CARLINE with probe detection Not detect ed text: not detect ed Borde tella parap ertus sis PCR Not detec vishal Not detec vishal 01/13 4:01 PM CDT [facility] Not Available Not Available 01/26/2025 15:49:05 01/14/20 25 01/13/2025 Respi rator y patho gens DNA and RNA panel - Nasop haryn x by CARLINE with non-p robe detec tion bordetella pertussis DNA [presence] in specimen by CARLINE with probe detection Not detect ed text: not detect ed Borde tella pertu ssis PCR Not detec vishal Not detec vishal 01/13 4:01 PM CDT [facility] Not Available Not Available 01/26/2025 15:49:05 01/14/20 25 01/13/2025 Respi rator y patho gens DNA and RNA panel - Nasop haryn x by CARLINE with non-p robe detec tion chlamydophil a pneumoniae rrna [presence] in specimen by probe Not detect ed text: not detect ed Chlam ydia pneum oniae PCR Not detec vishal Not detec vishal 01/13 4:01 PM CDT [facility] Not Available Not Available 01/26/2025 15:49:05 01/14/20 25 01/13/2025 Respi rator y patho gens DNA and RNA panel - Nasop haryn x by CARLINE with non-p robe detec tion mycoplasma pneumoniae rrna [presence] in specimen by probe Not detect ed text: not detect ed Mycop lasma pneum oniae PCR Not detec vishal Not detec vishal 01/13 4:01 PM CDT [facility] Not Available Not Available 01/26/2025 15:49:05 01/14/20 25 01/13/2025 Respi rator y patho gens DNA and RNA panel - Nasop haryn x by CARLINE with non-p robe detec tion Unknown Analyte This nuclei c amplif icatio n assay has receiv ed FDA author izatio n via the [facility]. This nucle ic ampli ficat ion assay has recei dior FDA autho rizat ion via the [facility]. Not Available Not Available 01/26/2025 15:49:05 01/14/20 25 01/13/2025 Respi rator y patho gens DNA and RNA panel - Nasop haryn x by CARLINE with non-p robe detec tion interpretati on and review of laboratory results Normal Not Available Not Available 12/29 15:49:05 01/27/20 25 01/26/2025 HbA1c (hemo globi n A1c), blood HbA1c 7.0 Not Available In-Office Order Internal Use Only DO Not Attach Compendium DO Not Attach Compendium, Do Not Delete/merge, [id number] 01/26/2025 16:34:13 02/03/2002/02/2025 Compr ehens khari metab olic 1999 panel - Serum or Plasm a urea nitrogen [mass/volume ] in serum or plasma 15 mg/dL low: 7mg/dL high: 26mg/d L BUN 15 7 - 26 mg/dL 02/02 10:05 AM [facility] PABLO Not Available Not Available 02/06/2025 13:43:24 02/03/20 25 02/02/2025 Compr ehens khari metab olic 1999 panel - Serum or Plasm a creatinine [mass/volume ] in serum or plasma 0.68 mg/dL low: 0.71mg /dLhig h: 1.16mg /dL low Creat inine 0.68 (L) 0.71 - 1.16 mg/dL 02/02 10:05 AM [facility] [facility] Not Available Not Available 02/06/2025 13:43:24 02/03/20 25 02/02/2025 Compr ehens khari metab olic 1999 panel - Serum or Plasm a sodium [moles/volum e] in serum or plasma 139 mmol/ L low: 136mmo l/Lhig h: 145mmo l/L Sodiu m 139 136 - 145 mmol/ L 02/02 10:05 AM [facility] Not Available Not Available 02/06/2025 13:43:24 02/03/20 25 02/02/2025 Compr ehens khari metab olic 1999 panel - Serum or Plasm a potassium [moles/volum e] in serum or plasma 4.2 mmol/ L low: 3.5mmo l/Lhig h: 4.5mmo l/L Potas sium 4.2 3.5 - 4.5 mmol/ L 02/02 10:05 AM [facility] Not Available Not Available 02/06/2025 13:43:24 02/03/20 25 02/02/2025 Compr ehens khari metab olic 1999 panel - Serum or Plasm a chloride [moles/volum e] in serum or plasma 106 mmol/ L low: 98mmol /Lhigh : 107mmo l/L Chlor chuck 106 98 - 107 mmol/ L 02/02 10:05 AM [facility] Not Available Not Available 02/06/2025 13:43:24 02/03/20 25 02/02/2025 Compr ehens khari metab olic 1999 panel - Serum or Plasm a carbon dioxide, total [moles/volum e] in serum or plasma 19 mmol/ L low: 22mmol /Lhigh : 29mmol /L low CO2 19 (L) 22 - 29 mmol/ L 02/02 10:05 AM [facility] Not Available Not Available 02/06/2025 13:43:24 02/03/20 25 02/02/2025 Compr ehens khari metab olic 1999 panel - Serum or Plasm a glucose [mass/volume ] in serum or plasma 245 mg/dL low: 70mg/d Lhigh: 99mg/d L high Gluco se 245 (H) 70 - 99 mg/dL 02/02 10:05 AM [facility] Not Available Not Available 02/06/2025 13:43:24 02/03/20 25 02/02/2025 Compr ehens khari metab olic 1999 panel - Serum or Plasm a calcium [moles/volum e] in serum or plasma 9.9 mg/dL low: 8.4mg/ dLhigh : 10.2mg /dL Calci um 9.9 8.4 - 10.2 mg/dL 02/02 10:05 AM [facility] Not Available Not Available 02/06/2025 13:43:24 02/03/20 25 02/02/2025 Compr ehens khari metab olic 1999 panel - Serum or Plasm a protein [mass/volume ] in serum or plasma 7.2 g/dL low: 6g/dLh igh: 8.3g/d L Prote in Total 7.2 6.0 - 8.3 g/dL 02/02 10:05 AM [facility] Not Available Not Available 02/06/2025 13:43:24 02/03/20 25 02/02/2025 Compr ehens khari metab olic 2000 panel - Serum or Plasm a albumin [mass/volume ] in serum or plasma by bromocresol green (bcg) dye binding method 4.1 g/dL low: 3.4g/d Lhigh: 5g/dL Album in 4.1 3.4 - 5.0 g/dL 02/02 10:05 AM CDT [facility] Not Available Not Available 02/06/2025 13:43:24 02/03/20 25 02/02/2025 Compr ehens khari metab olic 1999 panel - Serum or Plasm a bilirubin.to pablo [mass/volume ] in serum or plasma 0.2 mg/dL low: 0.2mg/ dLhigh : 1.2mg/ dL Bilir ubin Total 0.2 0.2 - 1.2 mg/dL 02/02 10:05 AM T [facility] Not Available Not Available 02/06/2025 13:43:24 02/03/20 25 02/02/2025 Compr ehens khari metab olic 1999 panel - Serum or Plasm a alkaline phosphatase [enzymatic activity/vol ume] in serum or plasma 185 U/L low: 40U/Lh igh: 150U/L high Alkal ine Phosp hatas e 185 (H) 40 - 150 U/L 02/02 10:05 AM T [facility] Not Available Not Available 02/06/2025 13:43:24 02/03/20 25 02/02/2025 Compr ehens khari metab olic 2000 panel - Serum or Plasm a alanine aminotransfe rase [enzymatic activity/vol ume] in serum or plasma by no addition of P-5'-P 21 U/L low: 5U/Lhi gh: 55U/L ALT 21 5 - 55 U/L 02/02 10:05 AM T [facility] Not Available Not Available 02/06/2025 13:43:24 02/03/20 25 02/02/2025 Compr ehens khari metab olic 2000 panel - Serum or Plasm a aspartate aminotransfe rase [enzymatic activity/vol ume] in serum or plasma 12 U/L low: 5U/Lhi gh: 34U/L AST 12 5 - 34 U/L 02/02 10:05 AM [facility] Not Available Not Available 02/06/2025 13:43:24 02/03/20 25 02/02/2025 Compr ehens khari metab olic 2000 panel - Serum or Plasm a anion gap 14 low: 6high: 16 Anion Gap 14 6 - 16 02/02 10:05 AM [facility] Not Available Not Available 02/06/2025 13:43:24 02/03/20 25 02/02/2025 Compr ehens khari metab olic 2000 panel - Serum or Plasm a urea nitrogen/cre atinine [mass ratio] in serum or plasma 22 low: 7high: 23 BUN/C reati nine Ratio 22 7 - 23 02/02 10:05 AM [facility] Not Available Not Available 02/06/2025 13:43:24 02/03/20 25 02/02/2025 Compr ehens khari metab olic 2000 panel - Serum or Plasm a osmolality calculated 297 text: 275 - 295 mOsm/k g high Osmol ality Calcu lated 297 (H) 275 - 295 mOsm/ kg 02/02 10:05 AM [facility] Not Available Not Available 02/06/2025 13:43:24 02/03/20 25 02/02/2025 Compr ehens khari metab olic 2000 panel - Serum or Plasm a albumin/glob ulin ratio 1.3 low: 1.1hig h: 2.3 Album in/Gl obuli n Ratio 1.3 1.1 - 2.3 02/02 10:05 AM [facility] [employer] [facility] Not Available Not Available 02/06/2025 13:43:24 02/03/20 25 02/02/2025 Compr ehens khari metab olic 2000 panel - Serum or Plasm a glomerular filtration rate [volume rate/area] in serum, plasma or blood by creatinine-b ased formula (CKD-epi 2020)/1.73 sq M text: >=90 mL/min /1.73 m2 eGFR by CKD-E PI >90 >=90 mL/mi n/1.7 3 m2 02/02 10:05 AM [facility] Not Available Not Available 02/06/2025 13:43:24 02/03/20 25 02/02/2025 Compr ehens khari metab olic 2000 panel - Serum or Plasm a interpretati on and review of laboratory results Abnorm al Not Available Not Available 13:43:24 02/03/2002/02/2025 Phosp hate [Mass /volu me] in Serum or Plasm a phosphate [mass/volume ] in serum or plasma 3.8 mg/dL low: 2.8mg/ dLhigh : 5.1mg/ dL Phosp horus 3.8 2.8 - 5.1 mg/dL 02/02 10:05 AM [facility] Not Available Not Available 02/06/2025 13:43:24 02/03/2002/02/2025 Phosp hate [Mass /volu me] in Serum or Plasm a interpretati on and review of laboratory [id number]|2025-03-18 12:28:15|2025-03-18 12:28:15|PC.NURSE||||"final blood cultures x2 reviewed. no growth after 5 days. no change in plan of care."
--- OUTSIDE RECORDS SUMMARY | 2025-03-11 20:01 | XMS_ITS | Clinical Summary ---
Author Organization [facility] Address [address] [place] [address] Care Team Providers Care Aquaculture Program Director Name Role Phone Matthew Sorenson Primary Care Provider [phone] Allergies Active Allergy Reactions Criticality Noted Date Comments Morphine Itching 12/17/2024 Vancomycin Redness 12/17/2024 Encounters Date Type Department Care Team Description 12/17/2024 6:40 PM FAX MACHINE REPAIRER - 12/17/2024 10:16 PM FAX MACHINE REPAIRER Emergency [facility] [place] [address] Lew Gonsalves MD Wrist Swelling Discharge Disposition: Home or Self Care (Routine Discharge) 12/17/2024 Travel from Last 3 Months Social History Tobacco Use Types Packs/Day Years Used Date Smoking Tobacco: Never Smokeless Tobacco: Never Tobacco Cessation:Counseling Given: Not Answered Alcohol Use Standard Drinks/Week Comments Not Currently 0 (1 standard drink = 0.6 oz pur e alcohol) Sex and Gender Information Value Date Recorded Sex Assigned at Male 12/17/2024 8:02 PM FAX MACHINE REPAIRER Legal Sex Male 9:50 PM FAX MACHINE REPAIRER Gender Identity Not on file Sexual Orientation Not on file Last Filed Vital Signs Vital Sign Reading Time Taken Comments Blood Pressure 159/95 12/17/2024 8:05 PM FAX MACHINE REPAIRER Pulse 99 12/17/2024 8:05 PM FAX MACHINE REPAIRER Temperature 36.7 C (98.1 F) 12/17/2024 6:37 PM FAX MACHINE REPAIRER Respiratory Rate 8 12/17/2024 8:05 PM FAX MACHINE REPAIRER Oxygen Saturation 99% 12/17/2024 8:05 PM FAX MACHINE REPAIRER Inhaled Oxygen Concentration - - Weight 107.2 kg (236 lb 5.3 oz) 12/17/2024 6:37 PM FAX MACHINE REPAIRER Height 185.4 cm (6' 1 ) 12/17/2024 6:37 PM FAX MACHINE REPAIRER Body Mass Index 31.18 12/17/2024 6:37 PM FAX MACHINE REPAIRER Plan of Treatment Health Maintenance Due Date Last Done Comments Colorectal Cancer Screening Colonoscopy (10 Years) 1978 Annual Physical 1981 DTaP, Tdap and Td Vaccines ( 1 - Tdap) 1997 Hepatitis B Vaccines (1 of 3 - 19+ 3-dose series) 1997 COVID-19 Vaccine (2023-2 5 season) 2024 Hepatitis C Completed 06/04/2024 Meningococcal B Vaccine Aged Out No l onger eligible based on patient's age to complete this topic Meningococcal Vaccine Aged Out No jose etienne eligible based on patient's age to complete this topic Pneumococcal Vaccine: Pediat rics (0 to 5 Years) and At-Risk Patients (6 to 49 Years) Aged Out No longer eligi ble based on patient's age to complete this topic RSV Immunizations Under 20 Months Aged Out No longer eligible based on patient's age to complete this topic Procedures Procedure Name Priority Date/Time Associated Diagnosis Comments CT CERV SPINE WO CON STAT 12/17/2024 7:55 PM FAX MACHINE REPAIRER CULTURE, WOUND, W/GRAM STAIN STAT 12/17/2024 7:26 PM FAX MACHINE REPAIRER PROTHROMBIN TIME, VENOUS STAT 12/17/2024 7:13 PM FAX MACHINE REPAIRER XR WRIST RT MIN 3V STAT 12/17/2024 7: 02 PM FAX MACHINE REPAIRER LACTIC ACID W REFLEX (SEPSIS) STAT 12/17/2024 6:53 PM FAX MACHINE REPAIRER COMPREHENSIVE METABOLIC PANEL STAT 12/17/2024 6:53 PM FAX MACHINE REPAIRER CBC W/DIFF AUTOMATED STAT 12/17/2024 6:53 PM FAX MACHINE REPAIRER from Last 3 Months Results * CT CERV SPINE WO CON (12/17/2024 7:55 PM FAX MACHINE REPAIRER) Anatomical Region Laterality Modality Spine Computed Tomogra phy 12/17/2024 7:58 PM FAX MACHINE REPAIRER Impressions 12/17/2024 8:07 PM FAX MACHINE REPAIRER IMPRESSION:DISC ENDPLATE, UNCOVERTEBRAL AND FACET SPURRING, WITH POSSIBLE SIGNIFICANT NARROWING ON THE LEFT AT THE C5-6 AND C6-7 LEVELS, AND ON THE RIGHT AT C7-T1 LEVEL. OTHERWISE UNREMARKABLE CERVICAL SPINE WITH NO EVIDENCE OF ACUTE TRAUMATIC INJURY. MILD PROBABLE POSITIONAL OR SPASM RELATED STRAIGHTENING OF CERVICAL CURVATURE AND AGE-APPROPRIATE MINIMAL SPONDYLOSIS. Referred By: Interpreted By: Neto Stein MD, 12/17/2024 7:58 PM Narrative 12/17/2024 8:07 PM FAX MACHINE REPAIRER [address] [address] EXAMINATION: CT CERVICAL SPINE WITHOUT CONTRAST EXAM DATE/TIME:12/17/2024 7:22 PM HISTORY:Patient presents with history of right wrist pain, swelling starting a month ago and has progressively gotten worse. Reports that he cannot make a fist with his hand. Hx of spinal fusion and multiple myeloma. No indication of recent injury. COMPARISON:None. TECHNIQUE: Axial noncontrast CT images of the cervical spine were obtained. Coronal and sagittal reformatted images were created and reviewed. A dose lowering technique was used for this procedure, which may include, but is not limited to, dose reduction techniques, automated exposure control, the use of a iterative reconstruction, and ALARA (as low as reasonably achievable)/image gently techniques. FINDINGS:There is positional straightening of cervical lordosis. Alignment is otherwise unremarkable. Age-appropriate minimal spondylosis. Although assessment of the spinal canal and neuroforamina is limited in the setting of noncontrast CT, there is moderate disc endplate and uncovertebral and facet prominence, most notable at the C5-6 and C6-7 levels on the left, and C7-T1 on the right. If symptoms persist, and the patient is able to undergo MRI, nonemergent MRI of the cervical spine may be appropriate. No evidence of an acute traumatic cervical spine fracture, subluxation or dislocation. The lateral mass, facet atlantoodontoid relationships are normal. There is no prevertebral soft tissue swelling. The visualized skull base and lung apices are unremarkable. Procedure Note Neto Stein MD - 12/17/2024 [facility] [address] [place], [place] [address] EXAMINATION: CT CERVICAL SPINE WITHOUT CONTRAST EXAM DATE/TIME:12/17/2024 7:22 PM HISTORY:Patient presents with history of right wrist pain, swellingstarting a month ago and has progressively gotten worse. Reports that jerseyot make a fist with his hand. Hx of spinal fusion and multiple myeloma. No indication of recentinjury. COMPARISON:None. TECHNIQUE: Axial noncontrast CT images of the cervical spine wereobtained. Coronal and sagittal reformatted images were created andreviewed. A dose lowering technique was used for this procedure, which may include,but is not limited to, dose reduction techniques, automated exposurecontrol, the use of a iterative reconstruction, and ALARA (as low asreasonably achievable)/image gently techniques. FINDINGS:There is positional straightening of cervical lordosis.Alignment is otherwise unremarkable. Age-appropriate minimal spondylosis.Although assessment of the spinal canal and neuroforamina is limited inthe setting of noncontrast CT, there is moderate disc endplate anduncovertebral and facet prominence, most notable at the C5-6 and C6-7levels on the left, and C7-T1 on the right. If symptoms persist, and thepatient is able to undergo MRI, nonemergent MRI of the cervical spine maybe appropriate. No evidence of an acute traumatic cervical spinefracture, subluxation or dislocation. The lateral mass, facetatlantoodontoid relationships are normal. There is no prevertebral softtissue swelling. The visualized skull base and lung apices areunremarkable. IMPRESSION:DISC ENDPLATE, UNCOVERTEBRAL AND FACET SPURRING, WITH POSSIBLESIGNIFICANT NARROWING ON THE LEFT AT THE C5-6 AND C6-7 LEVELS, AND ON THERIGHT AT C7-T1 LEVEL. OTHERWISE UNREMARKABLE CERVICAL SPINE WITH NO EVIDENCE OF ACUTE TRAUMATICINJURY. MILD PROBABLE POSITIONAL OR SPASM RELATED STRAIGHTENING OFCERVICAL CURVATURE AND AGE-APPROPRIATE MINIMAL SPONDYLOSIS. Referred By: Interpreted By: Neto Stein MD, 12/17/2024 7:58 PM Lew Gonsalves MD CT Final R esult * CULTURE, WOUND, W/GRAM STAIN (12/17/2024 7:26 PM FAX MACHINE REPAIRER) SPEC DESCRIPTION BACK 12/17/2024 7:25 PM FAX MACHINE REPAIRER [facility] SPECIAL REQUESTS NO SPECIAL REQUEST 12/17/2024 7:25 PM FAX MACHINE REPAIRER [facility] GRAM STAIN RESULT NO WHITE BLOOD CELLS SEEN 12/18/2024 7:30 AM FAX MACHINE REPAIRER [facility] GRAM STAIN RESULT NO ORGANISMS SEEN 12/18/2024 7:30 AM FAX MACHINE REPAIRER [facility] CULTURE RESULT NO GROWTH 3 DAYS 12/20/2024 9:13 AM FAX MACHINE REPAIRER [facility] SPECIMEN FROM TRUNK / Unknown 12/17/2024 7:26 PM FAX MACHINE REPAIRER 12/17/2024 7:41 PM FAX MACHINE REPAIRER Nahed Koenig NP MICROBIOLOGY - GENERAL ORDERA BLES Final Result [facility] [address] [place] [address], [place] [phone] * PROTIME/INR, VENOUS (12/17/2024 7:13 PM FAX MACHINE REPAIRER) PROTIME 12.5 10.2 - 12.9 SEC 12/17/2024 7:45 PM FAX MACHINE REPAIRER [facility] INR 1.1 12/17/2024 7:45 PM FAX MACHINE REPAIRER [facility] Comment: Recommended INR Therapeutic Goals: 2.0-3.0 Routine Therapy 2.5-3.5 Mechanical Prosthetic Valves (High Risk) 12/17/2024 7:13 PM FAX MACHINE REPAIRER us Nahed Dineroloud LITHOGRAPHIC PROOFER APPRENTICE LABORATORY Final Result [facility] [address] [place] [address], [place] [phone] * XR WRIST RT MIN 3V (12/17/2024 7:02 PM FAX MACHINE REPAIRER) Anatomical Region Laterality Modality Wrist Radiographic Lily ging 12/17/2024 7:15 PM FAX MACHINE REPAIRER Impressions 12/17/2024 7:15 PM FAX MACHINE REPAIRER IMPRESSION: No acute findings. Referred By: Interpreted By: Henry West MD, 12/17/2024 7:15 PM Narrative 12/17/2024 7:15 PM FAX MACHINE REPAIRER [address] [address] EXAMINATION: XR WRIST RT MIN 3V HISTORY: Pain DATE: 12/17/2024 6:50 PM COMPARISON: None TECHNIQUE: PA, oblique and lateral views of the right wrist. 3 images. FINDINGS: No acute fracture or dislocation. Mild negative ulnar variance. Joint spaces are unremarkable. No destructive bone lesion. Procedure Note Henry West MD - 12/17/[address] [address] EXAMINATION: XR WRIST RT MIN 3V HISTORY: Pain DATE: 12/17/2024 6:50 PM COMPARISON: None TECHNIQUE: PA, oblique and lateral views of the right wrist. 3 images. FINDINGS: No acute fracture or dislocation. Mild negative ulnar variance.Joint spaces are unremarkable. No destructive bone lesion. IMPRESSION: No acute findings. Referred By: Interpreted By: Henry West MD, 12/17/2024 7:15 PM Nahed Koenig LITHOGRAPHIC PROOFER APPRENTICE GENERAL IMAGING Final Result * LACTIC ACID W REFLEX (SEPSIS) (12/17/2024 6:53 PM FAX MACHINE REPAIRER) LACTIC ACID VENOUS 1.6 0.4 - 2.0 MMOL/L 12/17/2024 7:27 PM FAX MACHINE REPAIRER [facility] 12/17/2024 6:53 PM FAX MACHINE REPAIRER Nahed Koenig LITHOGRAPHIC PROOFER APPRENTICE LABORATORY Final Result [facility] [address] [place] [address], [place] [phone] * (ABNORMAL) COMPREHENSIVE METABOLIC PANEL (12/17/2024 6:53 PM FAX MACHINE REPAIRER) GLUCOSE 149(H) 70 - 99 MG/DL 12/17/2024 7:33 PM FAX MACHINE REPAIRER [facility] BUN 14 7 - 18 MG/DL 12/17/2024 7:33 PM [facility] CREATININE S/P/B 0.86 0.7 - 1.3 MG/DL 12/17/2024 7:33 PM FAX MACHINE REPAIRER [facility] SODIUM S/P/B 134(L) 136 - 145 MMOL/L 12/17/2024 7:33 PM FAX MACHINE REPAIRER [facility] POTASSIUM S/P/B 3.7 3.5 - 5.1 MMOL/L 12/17/2024 7:33 PM FAX MACHINE REPAIRER [facility] CHLORIDE S/P/B 100 97 - 115 MMOL/L 12/17/2024 7:33 PM [facility] CO2 29.6 21 - 32 MMOL/L 12/17/2024 7:33 PM [facility] CALCIUM S/P/B 9.0 8.5 - 10.1 MG/DL 12/17/2024 7:33 PM [facility] BILIRUBIN TOTAL S/P/B 0.3 0.2 - 1.2 MG/DL 12/17/2024 7:33 PM [facility] Comment: THIS ASSAY IS NOT RECOMMENDED FOR PATIENTS UNDERGOING TREATMENT WITH ELTROMBOPAG DUE TO THE POTENTIAL FOR FALSELY ELEVATED RESULTS. TOTAL PROTEIN S/P/B 7.2 6.4 - 8.2 G/DL 12/17/2024 7:33 PM [facility] ALBUMIN S/P/B 3.0(L) 3.4 - 5.0 G/DL 12/17/2024 7:33 PM [facility] AST 87(H) 15 - 37 U/L 12/17/2024 7:33 PM [facility] ALT 85(H) 16 - 60 U/L 12/17/2024 7:33 PM [facility] ALKALINE PHOSPHATASE S/P/B 625(H) 50 - 136 U/L 12/17/2024 7:33 PM [facility] ANION GAP 4.4 2 - 10 MMOL/L 12/17/2024 7:33 PM [facility] BUN CREATININE RATIO 16.3 6 - 26 12/17/2024 7:33 PM [facility] A/G RATIO 0.7(L) 1.0 - 2.0 RATIO 12/17/2024 7:33 PM [facility] GFR ESTIMATE >90 >90 ML/MIN/1.7 3 M2 12/17/2024 7:33 PM [facility] Comment: NOTE: eGFR is not calculated for patients <18 years of age or gender unknown. This is an estimated GFR calculation using the new CKD EPI creatinine equation without race and so does not require a correction factor for race. This estimated GFR should not be used for calculating drug doses. 12/17/2024 6:53 PM FAX MACHINE REPAIRER us Nahed Koenig NP LABORATORY Final Result [facility] [address] [place] [address], * (ABNORMAL) CBC W/DIFF AUTOMATED (12/17/2024 6:53 PM FAX MACHINE REPAIRER) WBC 10.81 4.5 - 11.0 x10'3/uL 12/17/2024 7:12 PM FAX MACHINE REPAIRER [facility] RBC 4.12(L) 4.70 - 6.10 x10'6/uL 12/17/2024 7:12 PM FAX MACHINE REPAIRER [facility] HGB 11.1(L) 14.0 - 18.0 G/DL 12/17/2024 7:12 PM FAX MACHINE REPAIRER [facility] HCT 35.0(L) 43.0 - 54.0 % 12/17/2024 7:12 PM FAX MACHINE REPAIRER [facility] MCV 85.0 80.0 - 94.0 FL 12/17/2024 7:12 PM FAX MACHINE REPAIRER [facility] MCH 26.9(L) 27.0 - 31.0 PG 12/17/2024 7:12 PM FAX MACHINE REPAIRER [facility] MCHC 31.7(L) 32.0 - 36.0 G/DL 12/17/2024 7:12 PM FAX MACHINE REPAIRER [facility] RDW 14.4 11.5 - 14.5 % 12/17/2024 7:12 PM FAX MACHINE REPAIRER [facility] PLT 444(H) 130 - 400 x10'3/uL 12/17/2024 7:12 PM FAX MACHINE REPAIRER [facility] MPV 10.1 9.3 - 12.2 FL 12/17/2024 7:12 PM [facility] DIFFERENTIAL TYPE AUTOMATED DIFFERENTIAL 12/17/2024 7:12 PM [facility] NEUTROPHILS % 53.7 % 12/17/2024 7:12 PM [facility] LYMPHOCYTES % 28.1 % 12/17/2024 7:12 PM [facility] MONOCYTES % 12.5 % 12/17/2024 7:12 PM [facility] EOSINOPHILS 4.5 % 12/17/2024 7:12 PM [facility] BASOPHILS 0.6 % 12/17/2024 7:12 PM [facility] IMMATURE GRANS % 0.6 % 12/17/19 7:12 PM [facility] ABS. NEUTROPHILS 5.81 1.80 - 7.70 x10'3/uL 12/17/2024 7:12 PM [facility] ABS. LYMPHOCYTES 3.04 1.00 - 4.80 x10'3/uL 12/17/2024 7:12 PM [facility] ABS. MONOCYTES 1.35(H) 0.30 - 0.82 x10'3/uL 12/17/2024 7:12 PM [facility] ABS. EOSINOPHILS 0.49 0.04 - 0.54 x10'3/uL 12/17/2024 7:12 PM [facility] ABS. BASOPHILS 0.06 0.01 - 0.08 x10'3/uL 12/17/2024 7:12 PM [facility] ABS. IMMATURE GRANULOCYTES 0.06 0.00 - 0.49 x10'3/uL 12/17/2024 7:12 PM [facility] 12/17/2024 6:53 PM FAX MACHINE REPAIRER us Nahed Koenig LITHOGRAPHIC PROOFER APPRENTICE LABORATORY Final Result [facility] [address] [place] [address], [place] [phone] from Last 3 Months Insurance [facility] Care Teams Aquaculture Program Director Relationship Specialty Start Date End Date Matthew Sorenson PA PCP - General PHYSICIAN BUSINESS PROCESS MODELER 12/17/24
--- OUTSIDE RECORDS SUMMARY | 2025-03-11 20:02 | XMS_ITS | Encounter Summary ---
Author Organization [facility] Address [address] [place] [address] Care Team Providers Care Lookback Coordinator Name Role Phone Matthew Sorenson Primary Care Provider [phone] Jose Luis Brooks MD Unavailable [phone] Abelardo Presley MD Unavailable [phone] Bo Francisco MD Unavailable [phone] Angie Rogers MD Unavailable Katie Gutierrez PharmD Unavailable Unavaila Jaja Casillas RN Unavailable Unavailable Abimbola Waters RIM TURNING FINISHER-HAND WOODWORKING SANDER Unavailable [phone] Perri Dexter RIM TURNING FINISHER-HAND WOODWORKING SANDER Unavailable [phone] Marilyn Bennett RN Unavailable Unavailable Erasmo Roberson RN Unavailable Unavailable Alexandra Cota RN Unavailable Unavailable Alda Braswell Unavailable Unavailable Lcuia Sharif LCSW Unavailable Unavailab le Encounter Details Date Type Department Care Team (Late st Contact Info) Description 02/22/2025 Results Follow-Up [facility] IVR [address] [place] [address] Juan Valencia MD [address] OF GASTROENTEROLOGY [place], [place] [id number] Social History Tobacco Use Types Packs/Day Years Used Date Smoking Tobacco: Former Cigarettes 1.5 33.6 S tarted: 08/20/1991 Passive Smoke Exposure: Past [...] Recorded Patient Health Questionnaire-2 Score 0 11/20/2024 [facility] - Occupational [...] any time in the past 12 m [facility], were you homeless or living in a care home (including now)? No 11/23/2024 Sex and Gender Information Value Date Recorded Sex Assigned at Not on file Legal Sex Male 11:44 AM MANAGER RISK MANAGEMENT Gender Identity Not on file Sexual Orientation Not on file documented as of this encounter Functional Status * Is person deaf or have serious hearing difficulty? Answer Date of Assessment Author No 02/19/2025 1:20 PM CDT Richie Alejandro RN * Is person blind or have serious difficulty seeing? Answer Date of Assessment Author No 02/19/2025 1:20 PM AURET Richie Alejandro RN * Does person have serious difficulty walking/climbing stairs? Answer Date of Assessment Author No 02/19/2025 1:20 PM AURET Richie Alejandro RN * Does person have difficulty dressing/bathing? Answer Date of Assessment Author No 02/19/2025 1:20 PM CDT Richie Alejandro RN * Does person have difficulty doing errands alone? Answer Date of Assessment Author No 02/19/2025 1:20 PM AURET Richie Alejandro RN documented as of this encounter Mental Status * Does person have difficulty concentrating/remembering/making decisions? Answer Entry Date Author No 02/19/2025 1:20 PM AURET Richie Alejandro RN documented in this encounter Plan of Treatment Upcoming Encounters Date Type Department Care Team (Late st Contact Info) Description 04/06/2025 8:40 AM CDT Appointment [facility] CAT SCAN [address] [place] [address] Arya Rm MD [address] [place] [address] [place] [phone] 04/06/2025 9:15 AM CDT Office Visit [facility] - Neurosurgery [address] [facility], [place] [phone] Arya Rm MD [address] [place] [address] [address] [place] [phone] 05/28/2025 2:30 PM CDT Office Visit [facility] - Infectious Disease [address] [place] [address], [place] [phone] Cristian Mcmillan MD [address] [place] [phone] documented as of this encounter Visit Diagnoses Not on filedocumented in this encounter Additional Health Concerns Infection Onset Date Last Indicated Resolved Time 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 documented as of this encounter Care Teams Lookback Coordinator Relationship Specialty Start Date End Date Matthew Sorenson PA [address] [place] [id number] PCP - General 02/02/22 Jose Luis Brooks MD [address] [place] [id number] Materials Handling Coordinator/Oncologis t Hematology and Oncology 08/29/24 Abelardo Presley MD [address] [place] [id number] Hematology and Oncology 08/29/24 03/04/25 Bo Francisco MD [address] [place] [phone] Hematology and Oncology 08/29/24 03/04/25 Angie Rogers MD [address] [place] [phone] Physician Hematology and Oncology 08/29/24 03/04/25 Katie Gutierrez, PharmD 08/29/24 03/04/25 Jaja Rayo RN Registered Nurse 08/29/24 03/04/25 Abimbola Waters APRN-CNP [address] [place] [address] Nurse Practitioner Nurse Practitioner 08/29/24 03/04/25 Perri Dexter APRN-CNP [address] [place] [address] Nurse Practitioner Nurse Practitioner 08/29/24 03/04/25 Marilyn Bennett, LOLI Coordinator 08/29/24 Erasmo Roberson, RN Registered Nurse 08/29/24 03/04/25 Alexandra Cota, RN Registered Nurse 08/29/24 03/04/25 Alda Braswell 08/29/24 03/04/25 Lucia Sharif LCSW Loom Setter 08/29/24 03/04/25 documented as of this encounter
--- OUTSIDE RECORDS SUMMARY | 2025-03-11 20:02 | XMS_ITS | Clinical Summary ---
Author Organization [facility] [employer] Address [address] [facility] [place] [address] Care Team Providers Care Casing Mixer Name Role Phone Matthew Sorenson Primary Care Provider [phone] Jose Luis Brooks MD Unavailable [phone] Marilyn Bennett RN Unavailable Unavailable Source Comments [facility],non-owned Affiliates and Associated Physician Practices is amultiple site organization consisting of ambulatory clinics and hospital sitesin [place], [place], [place] and [place]. This disclosure is being madepursuant to the Care Everywhere program and may not contain all information available regarding this patient. Last updated 18.[facility] [employer] Allergies Active Allergy Reactions Criticality Noted Date Comments Morphine Rash Medium 11/23/2024 Vancomycin Rash Medium 10/26/2024 Red man's syndrome Medications * Be aware that medications may not be up to date on this document. Alwaysverify current medications with the patient. Blood Glucose Monitoring Suppl (Blood Glucose Monitor System) w/Device KITIndications :Hyperglycemia Use 1 Each as directed 1 Each 06/28/20 24 Active Blood Glucose Monitoring Suppl (OneTouch Verio) w/Device KITIndications :Hyperglycemia Use 1 Box 3 times daily with meals 1 kit 06/28/20 24 Active sennosides (Senokot) 8.6 MG tablet TAKE ONE TABLET BY MOUTH 2 TIMES A DAY FOR 10 DAYS 20 tablet 06/09/20 24 2024 Active Blood Glucose Monitoring Suppl (OneTouch Verio Flex System) w/Device KITIndications :Hyperglycemia , unspecified USE DIRECTED 1 kit 06/28/20 24 2024 Active Lancets (ONETOUCH DELICA PLUS 33G EXTRA FINE LANCET)Indicat ions:Hyperglyc emia, unspecified USE ONE LANCET 3 TIMES A DAY 100 Each 11 06/28/20 24 2024 Active blood glucose test stripIndicatio ns:Acute post-operative pain Use 1 (one) strip 3 times daily before meals Use one strip to check blood sugar before each meal. One touch verio strips 100 strip 12 07/23/20 Active Additional Information Patient taking differently: (No dose reported), Does not apply 3 TIMES DAILY BEFORE MEALS, Use one strip to check blood sugar before each meal. One touch verio strips, Reported on 02/26/2025 Continuous Glucose District Captain (Dexcom G7 District Captain) SONIA as directed Act khari Continuous Glucose Sensor (Dexcom G7 Sensor) MISC as directed 08/07/20 Active apixaban (Eliquis) 5 MG tablet Take 1 (one) tablet by mouth 2 times daily 60 tablet 3 10/01/20 24 Active insulin glargine (Lantus/Semgle e) 100 units/mL pen Inject 10 (ten) Units subcutaneously every 24 hours for 30 days 3 mL 2 10/01/20 24 Active Additional Information Patient taking differently: 20 UnitsSubcutaneous EVERY 24 HOURS, Reported on 02/26/2025 hydrOXYzine HCl (Atarax) 25 MG tabletIndicati ons:Itching TAKE 1 (ONE) TABLET BY MOUTH 4 TIMES DAILY NEEDED FOR ITCHING 360 tablet 1 10/14/20 24 Active lidocaine (Lidoderm) 4 % patch Apply 1 (one) patch to skin once daily Apply patch to most painful area and remove after 12 hours. May reapply a new patch 12 hours later. 16 patch 10/14/20 24 Active sertraline (Zoloft) 50 MG tablet TAKE 1 TABLET BY MOUTH EVERY DAY 90 tablet 1 11/05/19 25 Active camphor-mentho l (Sarna) 0.5-0.5 % lotion Apply to affected area 3 times daily as needed for Itching 222 mL 1 11/10/19 25 Active Nutritional Supplements (Ensure High Protein) LIQDIndication s:Ensure High Protein twice a day Take 2 cans by mouth 2 times daily Reasons: Ensure High Protein twice a day 11/24/19 25 Active cyclobenzaprin e (Flexeril) 10 MG tablet Take 1 (one) tablet by mouth 3 times daily as needed for Muscle Spasms 90 tablet 1 12/10/19 25 Active famotidine (Pepcid) 40 MG tablet Take 1 (one) tablet by mouth once daily 12/10/19 25 Active insulin aspart (NovoLOG) pen Inject 5 (five) Units subcutaneously 3 times daily with meals 6 mL 2 12/24/19 25 Active oxyCODONE, immediate release, (Roxicodone) 5 MG tabletIndicati ons:Multiple myeloma not having achieved remission (HCC) Take 1 (one) tablet by mouth every 6 hours as needed for Pain 60 tablet 12/24/19 25 Active losartan (Cozaar) 100 MG tablet Take 1 (one) tablet by mouth once daily Need to follow with primary care 30 tablet 1 01/02/20 25 Active docusate sodium (Colace) 100 MG capsule Take 1 (one) capsule by mouth 2 times daily 60 capsule 3 01/02/20 25 Active gabapentin (Neurontin) 300 MG capsule Take 1 (one) capsule by mouth 2 times daily for 60 days, THEN 2 (two) capsules at bedtime for 60 days. 120 capsule 1 01/14/20 25 2024 Active amLODIPine (Norvasc) 10 MG tablet Take 1 (one) tablet by mouth once daily Need to follow with primary care 30 tablet 3 01/14/20 25 Active prochlorperazi ne (Compazine) 10 MG tabletIndicati ons:Multiple myeloma not having achieved remission (HCC) Take 1 (one) tablet by mouth every 6 hours as needed for Nausea/Vomiting 30 tablet 6 01/14/20 25 Active ondansetron, disintegrating , (Zofran ODT) 8 MG tablet Take 1 (one) tablet by mouth every 8 hours Allow tablet to dissolve on the tongue 90 tablet 1 01/14/20 25 Active oxyCODONE CR 12hr (OxyCONTIN) 20 MG tabletIndicati ons:Cancer associated pain Take 1 (one) tablet by mouth every 12 hours 60 tablet 01/15/20 25 Active mirtazapine (Remeron) 15 MG tablet TAKE 1 TABLET BY MOUTH EVERYDAY AT BEDTIME 90 tablet 1 01/16/20 25 Active doxycycline hyclate 100 MG tabletIndicati ons:MRSA bacteremia,Acu te on chronic low back pain,Orthopedi c hardware present Take 1 (one) tablet by mouth 2 times daily 56 tablet 5 01/20/20 25 2024 Active Acetaminophen Extra Strength 500 MG TABS TAKE 2 TABLETS (1,000 MG TOTAL) BY MOUTH EVERY 6 HOURS NEEDED FOR PAIN 12/18/19 Active amoxicillin (Amoxil) 875 MG tablet Take 1 tablet every 12 hours by oral route for 10 days. 01/27/20 25 Active carvedilol (Coreg) 12.5 MG tablet TAKE 1 TABLET TWICE A DAY BY ORAL ROUTE FOR 90 DAYS. 12/26/19 25 Active Jardiance 25 MG tablet Take 1 tablet every day by oral route for 90 days. 01/27/20 25 Active fexofenadine (Joceline) 180 MG tablet Take 1 (one) tablet by mouth once daily Activ e TRUEplus 5-Bevel Pen [place] 31G X 6 MM MIS USE TO INJECT INSULIN 3 TIMES DAILY 11/20/19 25 Active ondansetron (Zofran) 8 MG tablet Take 1 (one) tablet by mouth every 8 hours as needed Active doxycycline hyclate (Vibramycin) 100 MG capsule Take 1 (one) capsule by mouth 01/20/20 25 Active lenalidomide (Revlimid) 10 MG capsuleIndicat ions:Multiple myeloma, remission status unspecified (HCC) Take 1 (one) capsule by mouth once daily for 28 days 28 capsule 02/28/20 25 2024 Active acyclovir (Zovirax) 400 MG tablet Take 1 (one) tablet by mouth 2 times daily 60 tablet 5 03/02/20 25 Active glecaprevir-pi brentasvir (Mavyret) 100-40 MG tabletIndicati ons:Hepatitis C, Genotype 3 Take 3 (three) tablets by mouth daily with food for 56 days Reasons: Hepatitis due to Hepatitis C Virus, Genotype 3 168 tablet 12/25/19 25 2024 acyclovir (Zovirax) 400 MG tablet Take 1 (one) tablet by mouth 01/10/20 25 2024 Discontin ued(Reord er) lenalidomide (Revlimid) 10 MG capsuleIndicat ions:Multiple myeloma, remission status unspecified (HCC) Take 1 (one) capsule by mouth once daily for 28 days 28 capsule 02/24/20 25 2024 Discontin ued(Reord er) lenalidomide (Revlimid) 10 MG capsuleIndicat ions:Multiple myeloma, remission status unspecified (HCC) Take 1 (one) capsule by mouth once daily for 28 days 28 capsule 02/25/20 25 2024 Discontin ued(Reord er) Active Problems Problem Noted Date Diagnosed Date [...] C virus infection without hepatic coma 06/03/2024 Resolved Problems Problem Noted Date Diagnosed Date [...] initial encounter 06/03/2024 11/24/2024 Migraine 01/11/2022 11/24/2024 Encounters Date Type Department Care Team Description 03/02/2025 10:18 AM CDT - 03/02/2025 11:59 PM CDT Hospital Encounter [facility] [address] [place] [phone] Jose Luis Brooks MD Kunkle, Kelly, LIVESTOCK TRUCKER-PROCESSING ENGINEER Discharge Disposition: Home or Self Care 02/26/2025 2:30 PM CDT Office Visit [facility] - Infectious Disease [address] [place] [phone] oJse Luis Brooks MD Stack, Matthew A, MD Chronic hepatitis C without hepatic coma (HCC) (Primary Dx); MRSA bacteremia; Acute on chronic low back pain; Orthopedic hardware present; Multiple myeloma not having achieved remission (HCC); Acute osteomyelitis of lumbar spine (HCC); Chest wall abscess; History of illicit drug use; Acute septic pulmonary embolism without acute cor pulmonale (HCC); Hepatic cirrhosis due to chronic hepatitis C infection (HCC); Elevated LFTs; Routine health maintenance 02/26/2025 Travel 02/26/2025 Telephone [facility] - Infectious Disease [address] [place] [phone] Eliza Solano, LOLI Pre Authorization 02/24/2025 Refill [facility] [address] [place] [phone] Da, Erasmo J, PLANT RELIABILITY ENGINEER REFILL 02/23/2025 Orders Only [facility] [address] [place] [address] Jose Luis Brooks MD Multiple myeloma, remission status unspecified (HCC) 02/23/2025 Telephone [facility] [address] [place] [address] Marilyn Bennett RN 02/22/2025 Results Follow-Up [facility] [address] [place] [phone] Juan Valencia MD 02/19/2025 11:37 AM CDT Hospital Encounter [facility] [address] [place] [phone] Juan Valencia MD Interven Radiology 02/19/2025 8:45 AM CDT - 02/19/2025 9:15 AM CDT Surgery [facility] [address] [place] [phone] Juan Valencia MD BIOPSY LIVER (NEEDLE/PERCUTANEOUS )--plt 335, stat INR 02/19/2025 7:32 AM CDT - 02/19/2025 2:57 PM CDT Hospital Encounter [facility] [address] [place] [phone] Juan Valencia MD Surgery General Discharge Disposition: Home or Self Care 02/19/2025 Travel 02/18/2025 Telephone [facility] - Centralized Scheduling [address] [place] [phone] Cristian Mcmillan MD Appointment 02/12/2025 11:55 AM CDT - 02/12/2025 12:30 PM CDT Surgery [facility] [address] [place] [phone] Juan Valencia MD Not Performed BIOPSY LIVER (NEEDLE/PERCUTANEOUS )--office visit to follow--plt 259, stat INR 02/12/2025 11:10 AM CDT - 02/12/2025 12:01 PM CDT Hospital Encounter [facility] [address] [place] [phone] Juan Valencia MD Surgery General Discharge Disposition: Home or Self Care 02/12/2025 9:57 AM CDT - 02/12/2025 11:09 AM CDT Hospital Encounter [facility] [address] [place] [phone] Jose Luis Brooks MD Discharge Disposition: Home or Self Care 02/12/2025 Travel 02/06/[address] [phone] Erasmo Roberson, LOLI 02/06/2025 Orders Only [address] [address] Erasmo Roberson, RN Multiple myeloma, remission status unspecified (HCC) 02/04/2025 8:00 AM CDT - 02/04/2025 11:59 PM CDT Hospital Encounter [facility] EEG/EMG [address] [place] [phone] Jose Luis Brooks MD Hayat, Ghazala S, MD Discharge Disposition: Home or Self Care 02/04/2025 Travel 02/02/2025 11:15 AM CDT Office Visit [facility] - Neurosurgery [address] [facility] [place] [phone] Arya Rm MD S/P spinal surgery (Primary Dx) 02/02/2025 10:39 AM CDT - 02/02/2025 11:59 PM CDT Hospital Encounter [facility]NOST[facility] [address] [place] [phone] Perri Dexter APRN-CNP Discharge Disposition: Home or Self Care 02/02/2025 8:52 AM CDT - 02/02/2025 10:38 AM CDT Hospital Encounter [facility] [address] [place] [phone] Perri Dexter APRN-CNP Discharge Disposition: Home or Self Care 02/02/2025 Orders Only [facility] [address] [place] [phone] Perri Dexter APRN-CNP Multiple myeloma, remission status unspecified (HCC) ; Pre-transplant evaluation for stem cell transplant 02/02/2025 Travel 01/22/2025 Orders Only [facility] - Hematology/Oncology [address] [place] [phone] Jose Luis Brooks MD 01/16/2025 Refill [facility] - Infectious Disease [address] [facility] [place] [phone] Cristian Mcmillan MD MEDICATION REFILL 01/15/2025 Refill [facility] [address] [place] [phone] Perri Dexter APRN-CNP Refill Request 01/13/2025 12:25 PM CDT - 01/13/2025 11:59 PM CDT Hospital Encounter [facility] [address] [place] [phone] Perri Dexter APRN-CNP Discharge Disposition: Home or Self Care 01/13/2025 10:21 AM CDT - 01/13/2025 12:24 PM CDT Hospital Encounter [facility] [address] [place] [phone] Jose Luis Brooks MD Kunkle, Kelly, APRN-CNP Discharge Disposition: Home or Self Care 01/13/2025 Orders Only [facility] [address] [place] [phone] Jose Luis Brooks MD Cancer associated pain 01/13/2025 Travel 01/13/2025 Telephone [facility] [address] [place] [phone] Marilyn Bennett, LOLI 01/13/2025 Telephone [facility] [address] [place] [phone] Maddi Burger APRN-MIXER OPERATOR VACUUM PAN SALT GI Problem 01/01/2025 8:00 AM DOOR REPAIRER BUS - 01/01/2025 11:59 PM DOOR REPAIRER BUS Hospital Encounter [facility] RAD ONC [address] [place] [address] Jennifer Brock MD Discharge Disposition: Home or Self Care 01/01/2025 6:28 AM DOOR REPAIRER BUS - 01/01/2025 7:59 AM DOOR REPAIRER BUS Hospital Encounter [facility] MRI [address] [place] [phone] Jennifer Brock MD Discharge Disposition: Home or Self Care 01/01/2025 6:28 AM DOOR REPAIRER BUS - 01/01/2025 7:59 AM DOOR REPAIRER BUS Hospital Encounter [facility] MRI [address] [place] [phone] Jennifer Brock MD Discharge Disposition: Home or Self Care 01/01/2025 Orders Only [facility] [address] [place] [phone] Jose Luis Brooks MD 01/01/2025 Travel 12/25/2024 Orders Only [facility] - Infectious Disease [address] [place] [phone] Cristian Mcmillan MD Chronic hepatitis C without hepatic coma ; Multiple myeloma not having achieved remission 12/24/2024 11:30 AM DOOR REPAIRER BUS - 12/24/2024 11:59 PM DOOR REPAIRER BUS Hospital Encounter [facility] [address] [place] [phone] Jose Luis Brooks MD Kunkle, Kelly, APRN-CNP Discharge Disposition: Home or Self Care 12/24/2024 11:15 AM DOOR REPAIRER BUS Office Visit [facility] - Neurosurgery [address] [place] [address] [address] [place] [phone] Anne Miller APRN-CNP S/P spinal surgery (Primary Dx); Numbness and tingling of right hand 12/24/2024 Orders Only [facility] [address] [place] [phone] Jose Luis Brooks MD Multiple myeloma not having achieved remission 12/24/2024 Travel 12/19/2024 Orders Only [facility] [address] [place] [phone] Jose Luis Brooks MD 12/18/2024 2:30 PM DOOR REPAIRER BUS Office Visit [facility] - Infectious Disease [address] [place] [address] [place] [phone] Cristian Mcmillan MD MRSA bacteremia (Primary Dx); Acute pain of right wrist; Acute on chronic low back pain; Acute osteomyelitis of lumbar spine; Orthopedic hardware present; Multiple myeloma not having achieved remission; Chest wall abscess; Chronic hepatitis C without hepatic coma; History of illicit drug use; Acute septic pulmonary embolism without acute cor pulmonale; Elevated LFTs; Routine health maintenance 12/18/2024 Travel 12/18/2024 Telephone [facility] [address] [place] [address] Marilyn Bennett RN 12/17/2024 Telephone [facility] [address] [place] [phone] Shayy Lakhani, DAYNA-PROCESSING ENGINEER Follow-up from Last 3 Months Family History Medical History Relation Name Comments Cancer - Colon Paternal Grandfather Cancer - Thyroid Sister Relation Name Status Comments Paternal Grandfather Sister Social History Tobacco Use Types Packs/Day Years Used Date Smoking Tobacco: Former Cigarettes 1.5 33.6 S tarted: 08/20/1991 Passive Smoke Exposure: Past Smokeless Tobacco: Never Tobacco Cessation:Counseling Given: Not [...] Recorded Patient Health Questionnaire-2 Score 0 11/20/2024 [facility] [facility] Occup[facility] - Occupational Stress [...] place to sleep or slept in a residential (including now)? No 06/04/2024 Housing Stability Vital [...] time in the past [address] [facility], were you homeless or living in a residential (including now)? No 11/23/2024 Sex and Gender Information Value Date Recorded Sex Assigned at Not on file Legal Sex Male 11:44 AM DOOR REPAIRER BUS Gender Identity Not on file Sexual Orientation Not on file Last Filed Vital Signs Vital Sign Reading Time Taken Comments Blood Pressure 133/102 03/02/2025 11:00 AM CDT Pulse 92 03/02/2025 11:00 AM CDT Temperature 36.6 C (97.9 F) 03/02/2025 11:00 AM CDT Respiratory Rate 18 03/02/2025 11:00 AM CDT Oxygen Saturation 99% 03/02/2025 11:00 AM CDT Inhaled Oxygen Concentration 21% 02/19/2025 1 :30 PM CDT Weight 108.9 kg (240 lb) 02/26/2025 2:36 PM CDT Height 182.9 cm (6') 02/26/2025 2:36 PM CDT Body Mass Index 32.55 02/26/2025 2:36 PM CDT Plan of Treatment Upcoming Encounters Date Type Department Care Team (Late st Contact Info) Description 04/06/2025 8:40 AM CDT Appointment [facility] [address] [place] [phone] Arya Rm MD [address] [place] [address] [address] [place] [address] 04/06/2025 9:15 AM CDT Office Visit [facility] - Neurosurgery [address] [place] [phone] Arya Rm MD [address] [place] [address] [address] [place] [address] 05/28/2025 2:30 PM CDT Office Visit [facility] - Infectious Disease [address] [place] [phone] Cristian Mcmillan MD [address] [place] [phone] Health Maintenance Due Date Last Done Comments COLOGUARD (AGES 45-75) - COLON CA SCREENING 1978 COLON MONITORING 1978 COLONOSCOPY - COLON CA SCREENING 1978 CT COLONOGRAPHY - COLON CA SCREENING 1978 Colorectal Cancer Screening 1978 FIT - COLON CA SCREENING 1978 FLEX SIG - COLON CA SCREENING 1978 Opioid Medication Agreement - Annual 1978 COVID-19 VACCINE (#1) 1983 DTAP/TDAP/TD VACCINES (1 - Tdap) 1997 HEPATITIS B VACCINE (1 of 3 - 19+ 3-dose series) 1997 PNEUMOCOCCAL VACCINE (1 of 2 - PCV) 1997 ZOSTER VACCINE (1 of 2) 1997 DIABETES-STATIN 2018 DIABETES RETINOPATHY SCREENING 06/28/2024 DIABETES-FOOT EXAM WITH MONOFILAMENT 06/28/2024 DIABETES-HGB A1C 09/27/2024 06/28/2024 DIABETES - URINE PROTEIN SCREENING 10/29/2024 06/28/2024 INFLUENZA VACCINE (Season Ended) 2025 Opioid Medication Urine Drug Screening 09/01/2025 09/01/2024, 06/03/2024 DIABETES-SERUM CREATININE 02/12/20262024, 02/02/2025, 01/13/2025, Additional history exists HIV SCREENING Completed 06/06/2024 DEPRESSION SCREENING Completed 11/20/2024, 08/12/20 HEPATITIS C SCREENING Completed 02/26/2025 , 02/19/2025, 02/19/2025, Additional history exists HIB VACCINE Aged Out No longer eligi ble based on patient's age to complete this topic HPV VACCINE Aged Out No longer eligi ble based on patient's age to complete this topic MENINGOCOCCAL (Group B) VACCINE SHARED DECISION-MAKING Aged Out No longer eligible based on patient's age to complete this topic MENINGOCOCCAL GROUPS A/C/Y/W VACCINE Aged Out No longer eligible based on patient's age to complete this topic Medical Devices Implanted Type Area Quality Control Industrial Engineer Device Identifier Shelf Expiration Date Model / Serial / Lot Kit Spnl 5.8mm Spinejack Implanted:Qty: 1 on 07/22/2024 by Arya Rm MD at [facility] N/A: Spine Lumbar [place] Spine 10/28/2024 [id number] / / [id number] Kit Bone Cmnt Vertaplex Hv Autoplex Wo Implanted:Qty: 1 on 07/22/2024 by Arya Rm MD at [facility] N/A: Spine Lumbar [place] Spine 05/29/2025 [id number] / / [id number] Port Implinfn Powerport Clrvu Argd Nya Implanted:Qty: 1 on 08/20/2024 by Vic Callahan MD at [facility] Right: Chest Wall [employer] Peripheral [employer] 08/28/2025 [id number] / / [id number] Mixer Bone Cmnt Kyphon C20gm Ll Fit Implanted:Qty: 1 on 12/02/2024 by Arya Rm MD at [facility] N/A: Spine Lumbar Kyphon Inc [id number] / / Cmnt Bone Hv-R Kphx Mxr Grad Mrk Dspns Implanted:Qty: 1 on 12/02/2024 by Arya Rm MD at [facility] N/A: Spine Lumbar Kyphon Inc [id number] / / Graft Bone Grftn Dbm Plif 10x2.5cm Implanted:Qty: 1 on 12/02/2024 by Arya Rm MD at [facility] N/A: Spine Lumbar Osteotech Inc [id number] / / Ezekiel Spnl 500mm 5.5mm Cd Hzn Str Ti Ln Cp Implanted:Qty: 1 on 12/02/2024 by Arya Rm MD at [facility] N/A: Spine Lumbar Medtronic Inc [id number] / / Graft Bone Grftn Dbm Aspt 5x2.5cm Post Implanted:Qty: 1 on 12/02/2024 by Arya Rm MD at [facility] N/A: Spine Lumbar Medtronic Inc [id number] / / Screw Set Ti Spnl Brk Off Cd Hzn Nonster Implanted:Qty: 8 on 12/02/2024 by Arya Rm MD at [facility] N/A: Spine Lumbar Medtronic Inc [id number] / / Screw 7.5mm 55mm Ma Spne Solera Cd Hzn Implanted:Qty: 2 on 12/02/2024 by Arya Rm MD at [facility] N/A: Spine Lumbar Medtronic Inc [id number] / / Screw 7.5mm 50mm Ma Spne Solera Cd Hzn Implanted:Qty: 6 on 12/02/2024 by Arya Rm MD at [facility] Medtronic Inc [id number] / / Slnt Dura Duraseal Pg Trilysine Amine 5 Implanted:Qty: 1 on 12/02/2024 by Arya Rm MD at [facility] N/A: Spine Lumbar Integra [employer]iences Thang [id number] / / Explanted Type Area Quality Control Industrial Engineer Device Identifier Shelf Expiration Date Model / Serial / Lot Kit Osteocool Srg 10ga Bone Acc Explanted:Qty: 2 on 07/22/2024 by Arya Rm MD at [facility] N/A: Spine Lumbar Medtronic Inc [id number] / / [id number] Description:Access device, n ot an implant. No other options in system Probe 17ga 20mm Rf Eltx Osteocool 2mm Explanted:Qty: 1 on 07/22/2024 by Arya Rm MD at [facility] N/A: Spine Lumbar Medtronic Inc 03/26/2027 [id number] / / [id number] Description:Access device, n ot an implant. No other options in system Procedures Procedure Name Priority Date/Time Associated Diagnosis Comments CT US GUIDED NEEDLE PLACEMENT Routine 02/19/2025 12:45 PM CDT Hepatitis C virus infection without hepatic coma, unspecified chronicity History of multiple myeloma PATHOLOGY TISSUE Routine 02/19/2025 12:3 4 PM CDT Chronic hepatitis C without hepatic coma (HCC) Multiple myeloma not having achieved remission (HCC) NE US GUIDED NEEDLE PLACEMENT 02/19/2025 9:03 AM CDT Chronic hepatitis C without hepatic coma (HCC) Transaminitis GLUCOSE - POINT OF CARE Routine 02/20/20 8:29 AM CDT PT-INR [facility] STAT 02/19/2025 8:26 AM CDT Chronic hepatitis C without hepatic coma (HCC) RESPIRATORY PANEL WITH SARS-COV-2 BY PCR (STL) Routine 02/12/2025 11:00 AM CDT Flu-like symptoms COMPREHENSIVE METABOLIC PANEL STAT 02/12/2025 10:35 AM CDT Multiple myeloma not having achieved remission (HCC) PHOSPHORUS BLOOD STAT 02/12/2025 10:3 5 AM CDT Multiple myeloma not having achieved remission (HCC) MAGNESIUM BLOOD STAT 02/12/2025 10:35 AM CDT Multiple myeloma not having achieved remission (HCC) CBC W AUTO DIFFERENTIAL STAT 02/13/20 10:35 AM CDT Multiple myeloma not having achieved remission (HCC) KAPPA/LAMBDA LITE CHAIN FREE PANEL Routine 02/12/2025 10:32 AM CDT Multiple myeloma not having achieved remission (HCC) IGG BLOOD Routine 02/12/2025 10:32 AM CDT Multiple myeloma not having achieved remission (HCC) [id number]|2025-03-11 20:02:00|2025-03-11 20:00:00|XMS_ITS|BKG DAEMON|External Medical Summaries|[id number]|" Encounter Summary Created on: March 11, 2025 Joselito Nguyen : 1980 Sex: Male Author Organization [facility] Address [facility] [place] [address] Care Team Providers Care Casing Mixer Name Role Phone Matthew Sorenson Primary Care Provider [phone] Jose Luis Brooks MD Unavailable [phone] Abelardo Presley MD Unavailable [phone] Bo Francisco MD Unavailable [phone] Angie Rogers MD Unavailable Katie Gutierrez PharmD Unavailable Unavaila Jaja Casillas RN Unavailable Unavailable Abimbola Waters LIVESTOCK TRUCKER-PROCESSING ENGINEER Unavailable [phone] Perri Dexter LIVESTOCK TRUCKER-PROCESSING ENGINEER Unavailable [phone] Marilyn Bennett RN Unavailable Unavailable Erasmo Roberson RN Unavailable Unavailable Alexandra Cota RN Unavailable Unavailable Alda Braswell Unavailable Unavailable Lucia Sharif CEMENT HANDLER Unavailable Unavailab le Reason for Referral * (Routine) - Open Specialty Diagnoses / Procedures Referred By Contac t Referred To Contact Procedures Follow up with provider Juan Valencia MD [address] [place] [address] [place] [address] Phone: tel: fax: Referral ID Status Reason Start Date Expiration Date Visits Re quested Visits Authorized [id number] Open 02/19/2025 02/19/2026 1 1 * Radiology Services (Routine) - Open Specialty Diagnoses / Procedures Referred By Contac t Referred To Contact Diagnoses Hepatitis C virus infection without hepatic coma, unspecified chronicity History of multiple myeloma Procedures CT US Guided Needle Placement IR Perc Liver Biopsy Juan Valencia MD [address] [place] [address] Phone: tel: fax: [facility] [address] [place] [address] Phone: tel: Referral ID Status Reason Start Date Expiration Date Visits Re quested Visits Authorized [id number] Open 02/19/2025 02/19/2026 1 1 Reason for Visit * Auth/Cert (Routine) Specialty Diagnoses / Procedures Referred By Contac t Referred To Contact Diagnoses Chronic hepatitis C without hepatic coma (HCC) Transaminitis Chronic hepatitis C without hepatic coma (HCC) [B18.2] Transaminitis [R74.01] Procedures NE US GUIDED NEEDLE PLACEMENT BIOPSY LIVER (NEEDLE/PERCUTANEOUS) Referral ID Status Reason Start Date Expiration Date Visits Re quested Visits Authorized [id number] 1 1 Encounter Details Date Type Department Care Team (Latest Contact Info) Description 02/19/2025 11:37 AM CDT Hospital Encounter [facility] [address] [place] [address] Juan Valencia MD [address] DIV [place] [address] [facility] Social History Tobacco Use Types [...] Recorded Patient Health Questionnaire-2 Score 0 11/20/2024 [facility] - Occupational [...] place to sleep or slept in a residential (including now)? No 06/04/2024 Housing Stability Vital [...] time in the past 12 m [facility], were you homeless or living in a residential (including now)? 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 Callum Guerrero MD Forge Shop Machine Repairer Vascular & Interventional Radiology 02/20/2025 5:30 AM documented in this encounter Miscellaneous Notes * Clinical References AVS - Richie Alejandro RN - 02/19/2025 1:22 PM CDT Images from the original note were not included. [id number] Liver Biopsy A liver biopsy is when [...] your biopsy. Getting ready Before your biopsy: Â· Have blood tests as directed. Â· Follow all directions you're given for not eating or drinking before the biopsy. Â· Arrange for someone to drive you home after your biopsy. Â· Talk with your healthcare provider if you have any questions or concerns. Also tell your provider about all of the medicines and supplements you take. This includes: Â· Medicines, such as warfarin, that thin the blood and prevent blood clots. Â· Other medicines that thin the blood. This includes aspirin. It also includes nonsteroidal anti-inflammatory drugs (NSAIDs), such as ibuprofen and naproxen. Â· Medicines for heart conditions Â· Gmga-guw-mmeyapm medicines Â· All prescription medicines Â· Illegal drugs Â· Herbs, vitamins, and other supplements Stop taking aspirin and NSAIDS 1 week before the biopsy. Ask what other medicines you may need to stop. Follow any other directions from your provider. During the procedure Â· You'll change into a hospital gown. You'll lie on your back or your left side. Part of your bodyis draped. Â· Your healthcare provider checks your blood pressure, pulse, breathing, and temperature. Â· Your provider may give you medicine through an IV (intravenous) line to help you relax. They'llalso put medicine on your skin around the biopsy site to numb it. Â· You may have an ultrasound or CT scan of your liver. This is so your provider can find the best site to take the sample. Â· For a percutaneous liver biopsy, your provider will put a small needle through a tiny cut (incision) in your belly wall into the liver. They will take out a small sample of liver tissue. You'll betold to hold your breath while this is done. The needle is taken out. Â· For a transjugular biopsy, your provider will [...] Tissue samples are removed through the tube. Â· A provider places a bandage over the incision site. For a percutaneous biopsy, they may ask you to lie on your right side for a while. A pillow or special sandbag may be used to put pressure on the incision site. Â· You'll be asked to rest. You'll be [...] is called referred pain. When you're home: Â· Get plenty of rest. Â· Don't drink alcohol. Â· Don?t lift anything more than 15 to 20 pounds for 1 week. Â· Don?t exercise for 5 to 7 days. Â· Don't take aspirin. Â· Ask your provider when you can start taking other blood-thinning medicines as needed. Â· Follow any other directions from your provider. Getting your results Your biopsy results may take a few days. When the results are ready, your provider will discuss them with you. When to call your healthcare provider Call your provider right away if you have any of these: Â· Severe pain near the biopsy site or in your belly or chest Â· Fainting or feeling lightheaded Â· Trouble breathing Â· A fever of 100.4Â°F ( 38Â°C) or higher Â· Shaking chills Â· Feeling weak Â· Sweating Â· Bleeding from the incision site Â· Blood in your stool or black, tarry stools Â· Swollen belly Last Reviewed Date: 2023 00:00:00 Â© 6139-9296 [employer]. All rights reserved. This information is not intended as a substitute for professional medical care. Always follow your healthcare professional's instructions. documented in this encounter Plan of Treatment Upcoming Encounters Date Type Department Care Team (Late st Contact Info) Description 04/06/2025 8:40 AM CDT Appointment [facility] CAT SCAN [address] [place] [address] Arya mR MD [address] [place] [address] [address] [place] [address] 04/06/2025 9:15 AM CDT Office Visit [facility] - Neurosurgery [address] [place] [address], [place] [address] Arya Rm MD [address] [place] [address] [address] [place] [address] 05/28/2025 2:30 PM CDT Office Visit [facility] - Infectious Disease [address] [facility], [place] [address] Cristian Mcmillan MD [facility] [place] [phone] documented as of this encounter Procedures Procedure [...] evaluation, please review the evaluation forms in [facility]. For details on monitored clinical parameters during the intra-service sedation time, please review the procedure nurse documentation in [facility]. > Dictated by Seng Gaston MD (Paint Line Operator) 02/19/2025 12:59 PM Callum Mondragon MD [...] response to care. Intra-service sedation start time [id number] hours and end time was 1236 hours during which I was present. Total physician intra-service sedation time was 30 minutes. For details on pre moderate sedation and post moderate sedation patient evaluation, please review the evaluation forms in [facility]. For details on monitored clinical parameters during the intra-service sedation time, please review the procedure nurse documentation in [facility]. > Dictated by Seng Gaston MD (Paint Line Operator) 02/19/2025 12:59 PM Callum Mondragon MD have personally reviewed and interpreted this examination/study. > Interpreting Provider: Callum Guerrero MD on 02/24/2025 5:33 PM Juan Valencia MD CT ORDERABLES Final Result * PATHOLOGY TISSUE (02/19/2025 12:34 PM CDT) Case Report Surgical Pathology Report Case: [id number] Authorizing Provider: Juan Valencia MD Collected: 02/19/2025 12:34 PM Ordering Location: [facility] Received: 02/19/2025 01:06 PM Pathologist: Sammi Escalante MD Specimen: Liver Needle Biopsy, liver bx 02/20/2025 3:50 PM CDT [facility] Final Diagnosis Liver, biopsy (A): - Chronic hepatitis with minimal-mild activity - Steatosis and lobular inflammation without ballooning - Cirrhosis, see comment 02/20/2025 3:50 PM CDT [facility] at 1550 CDT Microscopic [...] 8 (steatosis-1, inflammation-1, ballooning-0). 02/20/2025 3:50 PM [facility] Clinical History The patient is a 44-year-old man with history of hepatitis C infection and appearance of cirrhosis on diagnostic imaging. Operative procedure: Ultrasound-guided random core liver biopsy 02/20/2025 3:50 PM [facility] Gross Description The requisition and specimen(s) are identified with the patient's name, Joselito Nguyen. Received in formalin, specimen A , are two baldwin-pink needle cores, 1.7 and 1.0 cm, both 0.1 cm diameter, submitted in toto in cassette A1. IKD 02/20/2025 3:50 PM [facility] Pathologist Location at [facility] 02/20/2025 3:50 PM [facility] Disclaimer The performance characteristics of all immunohistochemical and indirect immunofluorescence stains (if any) cited in this report were determined by the Histopathology Laboratory of [facility]. Some of these tests were developed by [...] the attending (teaching) pathologist. 02/20/2025 3:50 PM [facility] Collected By Balbir Rdz RN 3:50 PM [facility] Embedded Images 02/20/2025 3:50 PM [facility] Pathology/Cytolo gy NEEDLE BIOPSY OF LIVER / Unknown Collection / Unknown 02/19/2025 12:34 PM CDT 02/19/2025 1:06 PM CDT Comment:LIVER NEEDLE BIOPSY Juan Valencia MD LAB - PATHOLOGY/CYTOLOGY ORDER LISSETH Final Result [facility] [address] [place] [address], [facility] [phone] documented in this encounter Visit Diagnoses Diagnosis [...] NaCl infusion Intravenous, CONTINUOUS PRN, Starting on Sun02/19/25 at 1141, Until Sun02/19/25 at 1246, Intra-op $ New Bag/Syringe 02/19/2025 11:41 AM CDT 250 mL fentaNYL (PF) (Sublimaze) injection ONCE PRN, Starting on Sun02/19/25 at 1206, Until Sun02/19/25 at 1246, Intra-op $ Given 02/19/2025 12:12 PM CDT 50 mcg $ Given 02/19/2025 12:06 PM CDT 50 mcg lidocaine (Xylocaine) 1 % injection Subcutaneous, ONCE PRN, Starting on Sun02/19/25 at 1226, Until Sun02/19/25 at 1246, Intra-op $ Given 02/19/2025 12:26 PM CDT 10 mL See Comments midazolam (Versed) injection Intravenous, ONCE PRN, Starting on Sun02/19/25 at 1206, Until Sun02/19/25 at 1246, Intra-op $ Given 02/19/2025 12:12 [...] documented as of this encounter Care Teams Casing Mixer Relationship Specialty Start Date End Date Matthew Sorenson PA [address] [place] [address] PCP - General 02/02/22 Jose Luis Brooks MD [address] [place] [address] Analytics Senior Manager/Oncologis t Hematology and Oncology 08/29/24 Abelardo Presley MD [address] [place] [address] Hematology and Oncology 08/29/24 03/04/25 Bo Francisco MD [address] [place] [phone] Hematology and Oncology 08/29/24 03/04/25 [place] [address] [place] [phone] Physician Hematology and Oncology 08/29/24 03/04/25 Katie Gutierrez, PharmD 08/29/24 03/04/25 Jaja Rayo, RN Registered Nurse 08/29/24 03/04/25 Abimbola Waters, LIVESTOCK TRUCKER-PROCESSING ENGINEER [address] [place] [address] Nurse Practitioner Nurse Practitioner 08/29/24 03/04/25 Perri Dexter APRN-CNP [address] [place] [address] Nurse Practitioner Nurse Practitioner 08/29/24 03/04/25 Marilyn Bennett, RN Coordinator 08/29/24 Erasmo Roberson, RN Registered Nurse 08/29/24 03/04/25 Alexandra Cota, RN Registered Nurse 08/29/24 03/04/25 Alda Braswell 08/29/24 03/04/25 Lucia Sharif, CEMENT HANDLER Shell Sorter 08/29/24 03/04/25 documented as of this encounter "
--- NOTE | 2025-03-11 20:12 | PC.NURSE ---
BLAIR Paul at bedside for patient evaluation/assessment.
[2025-03-11] MEDS: ONDANSETRON HCL ODT 4 MG TABLET PO (20:41)
[2025-03-11] MEDS: HYDROmorphone HCL INJ (*CRX) 2 MG/ML VIAL 1 MG IM (20:41)
--- NOTE | 2025-03-11 20:46 | PC.NURSE ---
patient returned from imaging. medicated per order, see MAR. registration and phlebotomy at bedside. patient spouse present. call light within reach.
--- OUTSIDE RECORDS SUMMARY | 2025-03-11 20:47 | XMS_ITS | Encounter Summary ---
Author Organization [facility] Address [address] [place] [address] Care Team Providers Care Lens Cleaner Name Role Phone Matthew Sorenson Primary Care Provider [phone] Jose Luis Brooks MD Unavailable [phone] Abelardo Presley MD Unavailable [phone] Bo Francisco MD Unavailable [phone] Angie Rogers MD Unavailable Katie GutierrezD Unavailable Unavaila Jaja Casillas RN Unavailable Unavailable Abimbola Waters RIGGING LOFT REPAIRER-FREELANCE RECRUITER Unavailable [phone] Perri Dexter RIGGING LOFT REPAIRER-FREELANCE RECRUITER Unavailable [phone] Marilyn Bennett RN Unavailable Unavailable Erasmo Roberson RN Unavailable Unavailable Alexandra Cota RN Unavailable Unavailable Alda Braswell Unavailable Unavailable Lucia Sharif LCSW Unavailable Unavailab le Reason for Visit * Reason Onset Date Comments MEDICATION REFILL 10/20/2024 Encounter Details Date Type Department Care Team (Late st Contact Info) Description 10/20/2024 Refill [facility] - Hematology/Oncology [address] [place] [address] Jose Luis Brooks MD [address] [facility] [place] [address] MEDICATION REFILL Social History Tobacco [...] Recorded Patient Health Questionnaire-2 Score 1 08/12/2024 [facility] - Occupational Stress [...] time in the past 12 m [facility], were you homeless or living in a jail (including now)? 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 Gender Identity Not on file Sexual Orientation [...] Info) Description 04/06/2025 8:40 AM CDT Appointment [facility] CAT SCAN [address] [place] [phone] Arya Rm MD [address] [place] [address] [place] [address] 04/06/2025 9:15 AM CDT Office Visit [facility] - Neurosurgery [address] [place] [address], [place] [phone] Arya Rm MD [address] [place] [address] [address] [place] [phone] 05/28/2025 2:30 PM CDT Office Visit [facility] - Infectious Disease [address] [place] [address], [facility] [place] [phone] Cristian Mcmillan MD [address] [place] [phone] documented as of this encounter Visit Diagnoses Not on filedocumented in this encounter Additional Health Concerns Infection Onset Date Last Indicated Resolved Time 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 CDIFF Under Investigation 01/13/2025 01/13/2025 7:19 PM CDT COVID-19 Under Investigation 01/13/2025 01/13/2025 01/13/2025 4:01 PM CDT COVID-19 Under Investigation 02/12/2025 02/12/2025 02/12/2025 4:07 PM CDT documented as of this encounter Care Teams Lens Cleaner Relationship Specialty Start Date End Date Matthew Sorenson PA [address] [place] [address] PCP - General 02/02/22 Jose Luis Brooks MD [address] [place] [address] Manager Investment Banking/Oncologis t Hematology and Oncology 08/29/24 [place] [address] [place] [address] Hematology and Oncology 08/29/24 03/04/25 [place] [address] [place] [phone] Hematology and Oncology 08/29/24 03/04/25 Angie Rogers MD [address] [place] [phone] Physician Hematology and Oncology 08/29/24 03/04/25 Katie Gutierrez, PharmD 08/29/24 03/04/25 Jaja Rayo, RN Registered Nurse 08/29/24 03/04/25 Abimbola Waters, RIGGING LOFT REPAIRER-FREELANCE RECRUITER [address] [place] [phone] Nurse Practitioner Nurse Practitioner 08/29/24 03/04/25 Perri Dexter, DAYNA-FREELANCE RECRUITER [address] [place] [phone] Nurse Practitioner Nurse Practitioner 08/29/24 03/04/25 Marilyn Bennett, RN Coordinator 08/29/24 Erasmo Roberson, RN Registered Nurse 08/29/24 03/04/25 Alexandra Cota, RN Registered Nurse 08/29/24 03/04/25 Alda Braswell 08/29/24 03/04/25 Lucia Sharif POWER SUPPLY ENGINEER District Director 08/29/24 03/04/25 documented as of this encounter
--- OUTSIDE RECORDS SUMMARY | 2025-03-11 20:47 | XMS_ITS | Referral Summary ---
Author Organization [facility] Address [address] [place] [address] Care Team Providers Care Retread Operator Name Role Phone Matthew Sorenson Primary Care Provider [phone] Matthew Sorenson Unavailable [phone] Encounters Date Type Department Care Team Description 12/13/2024 Orders Only [facility] [phone] Unknown, Notinfile from Last 3 Months Allergies [...] on file Legal Sex Male 10:04 AM DRILL SHARPENER OPERATOR Gender Identity Not on file Sexual Orientation [...] Diagnosis Comments EGFR Routine 12/17/2024 6:02 AM DRILL SHARPENER OPERATOR CRP (ACUTE PHASE) Routine 12/17/2024 6:0 2 AM DRILL SHARPENER OPERATOR COMPREHENSIVE METABOLIC PANEL Routine 12/17/2024 6:02 AM DRILL SHARPENER OPERATOR BASIC METABOLIC PANEL Routine 12/17/2024 6:02 AM DRILL SHARPENER OPERATOR URIC ACID Routine 12/17/2024 6:02 AM DRILL SHARPENER OPERATOR ERYTHROCYTE SEDIMENTATION RATE Routine 12/17/2024 6:02 AM DRILL SHARPENER OPERATOR DIFFERENTIAL AUTO Routine 12/17/2024 6:0 2 AM DRILL SHARPENER OPERATOR CBC WITH AUTO DIFFERENTIAL Routine 12/17/2024 6:02 AM DRILL SHARPENER OPERATOR EGFR Routine 12/13/2024 5:30 AM DRILL SHARPENER OPERATOR COMPREHENSIVE METABOLIC PANEL Routine 12/13/2024 5:30 AM DRILL SHARPENER OPERATOR CBC WITHOUT DIFFERENTIAL Routine 12/13/2024 5:30 AM DRILL SHARPENER OPERATOR from Last 3 Months Results * eGFR (12/17/2024 6:02 AM DRILL SHARPENER OPERATOR) eGFR >90 >=60 mL/min/1. 73 m2 [facility] [...] was last reviewed 2021. Testing performed by: [address] [address] Blood 12/17/2024 6:02 AM DRILL SHARPENER OPERATOR 12/17/2024 8:21 AM DRILL SHARPENER OPERATOR us Notinfile Unknown LAB BLOOD ORDERABLES Final Res ult [facility] [address] [facility] Department [place] [address] * (ABNORMAL) Differential, auto (12/17/2024 6:02 AM DRILL SHARPENER OPERATOR) Neutrophil abs 4.0 1.5 - 6.5 K/cumm [facility] Comment:Testing performed by : [address] [address] Imm gran abs 0.0 0.0 - 0.1 K/cumm [facility] Comment:Testing performed by : [address] [address] Lymphocyte abs 2.3 0.8 - 3.3 K/cumm [facility] Comment:Testing performed by : [address] [address] Monocyte abs 1.2(H) 0.2 - 0.8 K/cumm [facility] Comment:Testing performed by : [address] [address] Eosinophil abs 0.3 0.0 - 0.5 K/cumm [facility] Comment:Testing performed by : [address] [address] Basophil abs 0.0 0.0 - 0.1 K/cumm [facility] Comment:Testing performed by : [address] [address] Neutrophil pct 50.7 % [facility] Comment: Interpretive Data Percent cell count reference ranges are not reported, since discordance with absolute values may lead to misinterpretation of CBC data. Current Interpretive Data was last revised on 2018. Testing performed by: [address] [address] Imm gran pct 0.5 % [facility] Comment: Interpretive Data Percent cell count reference ranges are not reported, since discordance with absolute values may lead to misinterpretation of CBC data. Current Interpretive Data was last revised on 2018. Testing performed by: [address] [address] Lymphocyte pct 29.3 % [facility] Comment: Interpretive Data Percent cell count reference ranges are not reported, since discordance with absolute values may lead to misinterpretation of CBC data. Current Interpretive Data was last revised on 2018. Testing performed by: [address] [address] Monocyte pct 14.9 % [facility] Comment: Interpretive Data Percent cell count reference ranges are not reported, since discordance with absolute values may lead to misinterpretation of CBC data. Current Interpretive Data was last revised on 2018. Testing performed by: [address] [address] Eosinophil pct 4.3 % [facility] Comment: Interpretive Data Percent cell count reference ranges are not reported, since discordance with absolute values may lead to misinterpretation of CBC data. Current Interpretive Data was last revised on 2018. Testing performed by: [address] [address] Basophil pct 0.3 % [facility] Comment: Interpretive Data Percent cell count reference ranges are not reported, since discordance with absolute values may lead to misinterpretation of CBC data. Current Interpretive Data was last revised on 2018. Testing performed by: [address] [address] Blood 12/17/2024 6:02 AM DRILL SHARPENER OPERATOR 12/17/2024 8:21 AM DRILL SHARPENER OPERATOR us Notinfile Unknown LAB BLOOD ORDERABLES Final Res ult [facility] [address] [facility] [place] [address] * (ABNORMAL) CBC with auto differential (12/17/2024 6:02 AM DRILL SHARPENER OPERATOR) WBC 7.9 3.8 - 9.9 K/cumm [facility] Comment:Testing performed by : [address] [address] Hgb 10.9(L) 13.0 - 17.5 g/dL [facility] Comment:Testing performed by : [address] [address] Hct 34.0(L) 38.9 - 50.3 % [facility] Comment:Testing performed by : [address] [address] Plt 381 150 - 400 K/cumm [facility] Comment:Testing performed by : [address] [address] MPV 10.3 9.1 - 12.3 fL [facility] Comment:Testing performed by : [address] [address] RBC 4.02(L) 4.30 - 5.80 M/cumm [facility]AND Comment:Testing performed by : [address] [address] MCV 84.6 81.3 - 96.4 fL [facility] Comment:Testing performed by : [address] [address] MCH 27.1 27.1 - 33.3 pg [facility] Comment:Testing performed by : [address] [address] MCHC 32.1(L) 32.3 - 35.7 g/dL [facility] Comment:Testing performed by : [facility], [address] [place] [address]., [address] RDW CV 14.6 11.1 - 14.9 % [facility] Comment:Testing performed by : [address] [address] RDW SD 45.0 35.7 - 48.1 fL [facility] Comment:Testing performed by : [address] [address] NRBC abs 0.00 0.00 - 0.01 K/cumm [facility] Comment:Testing performed by : [address] [address] Blood 12/17/2024 6:02 AM DRILL SHARPENER OPERATOR 12/17/2024 8:21 AM DRILL SHARPENER OPERATOR us Notinfile Unknown LAB BLOOD ORDERABLES Final Res ult Performing Organization Address [facility]/ZIP Co de Phone Number [id number] [place] [address] * (ABNORMAL) Erythrocyte sedimentation rate (12/17/2024 6:02 AM DRILL SHARPENER OPERATOR) Erythrocyte sedimentation rate 56(H) 1 - 15 mm/hr [facility] Comment:Testing performed by : [address] [address] Blood 12/17/2024 6:02 AM DRILL SHARPENER OPERATOR 12/17/2024 8:21 AM DRILL SHARPENER OPERATOR us Notinfile Unknown LAB BLOOD ORDERABLES Final Res ult Performing Organization Address City/[facility] Co de Phone Number [address] [place] [address] * (ABNORMAL) CRP (acute phase) (12/17/2024 6:02 AM DRILL SHARPENER OPERATOR) CRP 10.9(H) <=10.0 mg/L [facility] Comment:Testing performed by : [address] [address] Blood 12/17/2024 6:02 AM DRILL SHARPENER OPERATOR 12/17/2024 8:21 AM DRILL SHARPENER OPERATOR us Notinfile Unknown LAB BLOOD ORDERABLES Final Res ult Performing Organization Address [facility] Co de Phone Number JONI[address] [address] * Uric acid (12/17/2024 6:02 AM DRILL SHARPENER OPERATOR) Pathologist [facility] Uric acid 4.7 3.0 - 8.0 mg/dL [facility] Comment:Testing performed by : [address] [address] Blood 12/17/2024 6:02 AM DRILL SHARPENER OPERATOR 12/17/2024 8:21 AM DRILL SHARPENER OPERATOR us Notinfile Unknown LAB BLOOD ORDERABLES Final Res ult Performing Organization Address [facility] de Phone Number JONI[address] [address] * (ABNORMAL) Comprehensive metabolic panel (12/17/2024 6:02 AM DRILL SHARPENER OPERATOR) Pathologist [facility] Sodium 138 135 - 145 mmol/L [facility] Comment:Testing performed by : [address] [address] Potassium, pl 4.4 3.3 - 4.9 mmol/L [facility] Comment:Testing performed by : [address] [address] Chloride 101 97 - 110 mmol/L [facility] Comment:Testing performed by : [address] [address] CO2 27 22 - 32 mmol/L [facility] Comment:Testing performed by : [address] [address] Anion gap 10 2 - 15 mmol/L [facility] Comment:Testing performed by : [address] [address] BUN 13 6 - 25 mg/dL [facility] Comment:Testing performed by : [address] [address] Creatinine 0.67(L) 0.80 - 1.30 mg/dL [facility] Comment:Testing performed by : [address] [address] Glucose 154 70 - 199 mg/dL [facility] Comment: Interpretive Data Fasting glucose >/= [...] was last revised 2022. Testing performed by: [address] [address] Calcium 9.4 8.5 - 10.3 mg/dL [facility] Comment:Testing performed by : [address] [address] Bilirubin, total 0.3 0.1 - 1.2 mg/dL [facility] Comment:Testing performed by : [address] [address] Protein, pl 6.5 6.5 - 8.5 g/dL [facility] Comment:Testing performed by : [address] [address] Albumin 3.5 3.5 - 5.0 g/dL [facility] Comment:Testing performed by : [address] [address] Alk phos 598(H) 40 - 130 Units/L [facility] Comment:Testing performed by : [address] [address] ALT 78(H) 7 - 55 Units/L [facility] Comment:Testing performed by : [address] [address] AST 87(H) 10 - 50 Units/L [facility] Comment:Testing performed by : [address] [address] Blood 12/17/2024 6:02 AM DRILL SHARPENER OPERATOR 12/17/2024 8:21 AM DRILL SHARPENER OPERATOR us Notinfile Unknown LAB BLOOD ORDERABLES Final Res ult [facility] [address] [facility] [place] [address] * (ABNORMAL) Basic metabolic panel (12/17/2024 6:02 AM DRILL SHARPENER OPERATOR) Sodium 138 135 - 145 mmol/L [facility] Comment:Testing performed by : [address] [address] Potassium, pl 4.4 3.3 - 4.9 mmol/L [facility] Comment:Testing performed by : [address] [address] Chloride 101 97 - 110 mmol/L [facility] Comment:Testing performed by : [address] [address] CO2 27 22 - 32 mmol/L [facility] Comment:Testing performed by : [address] [address] Anion gap 10 2 - 15 mmol/L [facility] Comment:Testing performed by : [address] [address] BUN 13 6 - 25 mg/dL [facility] Comment:Testing performed by : [address] [address] Creatinine 0.67(L) 0.80 - 1.30 mg/dL [facility] Comment:Testing performed by : [address] [address] Glucose 154 70 - 199 mg/dL [facility] [...] was last revised 2022. Testing performed by: [facility], [address] [place] [address]., [address] Calcium 9.4 8.5 - 10.3 mg/dL [facility] Comment:Testing performed by : [address] [address] Blood 12/17/2024 6:02 AM DRILL SHARPENER OPERATOR 12/17/2024 8:21 AM DRILL SHARPENER OPERATOR us Notinfile Unknown LAB BLOOD ORDERABLES Final Res ult [facility] [address] [facility] Department [place] [address] * eGFR (12/13/2024 5:30 AM DRILL SHARPENER OPERATOR) eGFR >90 >=60 mL/min/1. 73 m2 [facility] [...] was last reviewed 2021. Testing performed by: [address] [address] Blood 12/13/2024 5:30 AM DRILL SHARPENER OPERATOR 12/13/2024 8:39 AM DRILL SHARPENER OPERATOR us Notinfile Unknown LAB BLOOD ORDERABLES Final Res ult [facility] [address] [facility] Department [place] [address] * (ABNORMAL) CBC without differential (12/13/2024 5:30 AM DRILL SHARPENER OPERATOR) WBC 9.3 3.8 - 9.9 K/cumm [facility] Comment:Testing performed by : [address] [address] Hgb 10.5(L) 13.0 - 17.5 g/dL [facility] Comment:Testing performed by : [address] [address] Hct 32.6(L) 38.9 - 50.3 % [facility] Comment:Testing performed by : [address] [address] Plt 458(H) 150 - 400 K/cumm [facility] Comment:Testing performed by : [address] [address] MPV 10.2 9.1 - 12.3 fL [facility] Comment:Testing performed by : [address] [address] RBC 3.88(L) 4.30 - 5.80 M/cumm [facility] Comment:Testing performed by : [address] [address] MCV 84.0 81.3 - 96.4 fL [facility] Comment:Testing performed by : [address] [address] MCH 27.1 27.1 - 33.3 pg [facility] Comment:Testing performed by : [address] [address] MCHC 32.2(L) 32.3 - 35.7 g/dL [facility] Comment:Testing performed by : [address], [address] RDW CV 14.6 11.1 - 14.9 % [facility] Comment:Testing performed by : [address] [address] RDW SD 44.4 35.7 - 48.1 fL [facility] Comment:Testing performed by : [address] [address] NRBC abs 0.00 0.00 - 0.01 K/cumm [facility] Comment:Testing performed by : [address] [address] Blood 12/13/2024 5:30 AM DRILL SHARPENER OPERATOR 12/13/2024 8:39 AM DRILL SHARPENER OPERATOR us Notinfile Unknown LAB BLOOD ORDERABLES Final Res ult [facility] [place] [address] * (ABNORMAL) Comprehensive metabolic panel (12/13/2024 5:30 AM DRILL SHARPENER OPERATOR) Sodium 139 135 - 145 mmol/L [facility] Comment:Testing performed by : [address] [address] Potassium, pl 4.5 3.3 - 4.9 mmol/L [facility] Comment:Testing performed by : [address] [address] Chloride 100 97 - 110 mmol/L [facility] Comment:Testing performed by : [address] [address] CO2 27 22 - 32 mmol/L [facility] Comment:Testing performed by : [address] [address] Anion gap 12 2 - 15 mmol/L [facility] Comment:Testing performed by : [address] [address] BUN 11 6 - 25 mg/dL [facility] Comment:Testing performed by : [address] [address] Creatinine 0.50(L) 0.80 - 1.30 mg/dL [facility] Comment:Testing performed by : [address] [address] Glucose 127 70 - 199 mg/dL [facility] [...] was last revised 2022. Testing performed by: [address] [address] Calcium 9.6 8.5 - 10.3 mg/dL [facility] Comment:Testing performed by : [address] [address] Bilirubin, total 0.4 0.1 - 1.2 mg/dL [facility] Comment:Testing performed by : [address] [address] Protein, pl 6.6 6.5 - 8.5 g/dL [facility] Comment:Testing performed by : [address] [address] Albumin 3.6 3.5 - 5.0 g/dL [facility] Comment:Testing performed by : [address] [address] Alk phos 802(H) 40 - 130 Units/L [facility] Comment:Testing performed by : [address] [address] ALT 57(H) 7 - 55 Units/L [facility] Comment:Testing performed by : [address] [address] AST 76(H) 10 - 50 Units/L [facility] Comment:Testing performed by : [address] [address] Blood 12/13/2024 5:30 AM DRILL SHARPENER OPERATOR 12/13/2024 8:39 AM DRILL SHARPENER OPERATOR us Notinfile Unknown LAB BLOOD ORDERABLES Final Res ult [facility] [address] [facility] [place] [address] from Last 3 Months Insurance [facility] Care Teams Retread Operator Relationship Specialty Start Date End Date Matthew Sorenson PA [address] [place] [address] PCP - General Family Practice 05/04/23 Matthew Sorenson PA [address] [place] [address] Family Practice 09/12/22
--- OUTSIDE RECORDS SUMMARY | 2025-03-11 20:47 | XMS_ITS | Clinical Summary ---
Author Organization [facility] Address [address] [place] [address] Care Team Providers Care Extractions Technologist Name Role Phone Matthew Sorenson Primary Care Provider [phone] Matthew Sorenson Unavailable [phone] Allergies No known active allergies Medications [...] Description 12/13/2024 Orders Only [facility] [phone] Unknown, Notinfile from Last 3 Months Social History Tobacco Use Types Packs/Day Years Used Date Smoking Tobacco: Never Assessed Personal Safety Answer Date Recorded Getting School Help Needed Not on file 05/11 Sex and Gender Information Value Date Recorded Sex Assigned at Not on file Legal Sex Male 10:04 AM DIET AIDE Gender Identity Not on file Sexual Orientation [...] Diagnosis Comments EGFR Routine 12/17/2024 6:02 AM DIET AIDE CRP (ACUTE PHASE) Routine 12/17/2024 6:0 2 AM DIET AIDE COMPREHENSIVE METABOLIC PANEL Routine 12/17/2024 6:02 AM DIET AIDE BASIC METABOLIC PANEL Routine 12/17/2024 6:02 AM DIET AIDE URIC ACID Routine 12/17/2024 6:02 AM DIET AIDE ERYTHROCYTE SEDIMENTATION RATE Routine 12/17/2024 6:02 AM DIET AIDE DIFFERENTIAL AUTO Routine 12/17/2024 6:0 2 AM DIET AIDE CBC WITH AUTO DIFFERENTIAL Routine 12/17/2024 6:02 AM DIET AIDE EGFR Routine 12/13/2024 5:30 AM DIET AIDE COMPREHENSIVE METABOLIC PANEL Routine 12/13/2024 5:30 AM DIET AIDE CBC WITHOUT DIFFERENTIAL Routine 12/13/2024 5:30 AM DIET AIDE from Last 3 Months Results * eGFR (12/17/2024 6:02 AM DIET AIDE) Pathologist [facility] eGFR >90 >=60 mL/min/1. 73 m2 USMAN [...] was last reviewed 2021. Testing performed by: [address] [address] Blood 12/17/2024 6:02 AM DIET AIDE 12/17/2024 8:21 AM DIET AIDE us Notinfile Unknown LAB BLOOD ORDERABLES Final Res ult USMAN [address] [facility] Department [place] [address] * (ABNORMAL) Differential, auto (12/17/2024 6:02 AM DIET AIDE) Pathologist [facility] Neutrophil abs 4.0 1.5 - 6.5 K/cumm USMAN RAND Comment:Testing performed by : [address] [address] Imm gran abs 0.0 0.0 - 0.1 K/cumm USMAN RAND Comment:Testing performed by : [address] [address] Lymphocyte abs 2.3 0.8 - 3.3 K/cumm CERNER Comment:Testing performed by : [address], [place]., [address] Monocyte abs 1.2(H) 0.2 - 0.8 K/cumm CERNER Comment:Testing performed by : [address], [place]., [address] Eosinophil abs 0.3 0.0 - 0.5 K/cumm [facility]:Testing performed by : [address], [place]., [address] Basophil abs 0.0 0.0 - 0.1 K/cumm CERNER Comment:Testing performed by : [address] [address] Neutrophil pct 50.7 % CERNER Comment: Interpretive Data Percent cell count reference ranges are not reported, since discordance with absolute values may lead to misinterpretation of CBC data. Current Interpretive Data was last revised on 2018. Testing performed by: [address] [address] Imm gran pct 0.5 % CERNER Comment: Interpretive Data Percent cell count reference ranges are not reported, since discordance with absolute values may lead to misinterpretation of CBC data. Current Interpretive Data was last revised on 2018. Testing performed by: [address] [address] Lymphocyte pct 29.3 % CERNER Comment: Interpretive Data Percent cell count reference ranges are not reported, since discordance with absolute values may lead to misinterpretation of CBC data. Current Interpretive Data was last revised on 2018. Testing performed by: [address] [address] Monocyte pct 14.9 % CERNER Comment: Interpretive Data Percent cell count reference ranges are not reported, since discordance with absolute values may lead to misinterpretation of CBC data. Current Interpretive Data was last revised on 2018. Testing performed by: [address] [address] Eosinophil pct 4.3 % CERNER Comment: Interpretive Data Percent cell count reference ranges are not reported, since discordance with absolute values may lead to misinterpretation of CBC data. Current Interpretive Data was last revised on 2018. Testing performed by: [address] [address] Basophil pct 0.3 % USMAN RAND Comment: Interpretive Data Percent cell count reference ranges are not reported, since discordance with absolute values may lead to misinterpretation of CBC data. Current Interpretive Data was last revised on 2018. Testing performed by: [address] [address] Blood 12/17/2024 6:02 AM DIET AIDE 12/17/2024 8:21 AM DIET AIDE us Notinfile Unknown LAB BLOOD ORDERABLES Final Res ult [facility] [place] [address] * (ABNORMAL) CBC with auto differential (12/17/2024 6:02 AM DIET AIDE) WBC 7.9 3.8 - 9.9 K/cumm USMAN RAND Comment:Testing performed by : [address] [address] Hgb 10.9(L) 13.0 - 17.5 g/dL USMAN RAND Comment:Testing performed by : [address] [address] Hct 34.0(L) 38.9 - 50.3 % USMAN RAND Comment:Testing performed by : [address] [address] Plt 381 150 - 400 K/cumm USMAN RAND Comment:Testing performed by : [address] [address] MPV 10.3 9.1 - 12.3 fL USMAN RAND Comment:Testing performed by : [address] [address] RBC 4.02(L) 4.30 - 5.80 M/cumm USMAN RAND Comment:Testing performed by : [address] [address] MCV 84.6 81.3 - 96.4 fL USMAN RAND Comment:Testing performed by : [address] [address] MCH 27.1 27.1 - 33.3 pg USMAN RAND Comment:Testing performed by : [address] [address] MCHC 32.1(L) 32.3 - 35.7 g/dL USMAN RAND Comment:Testing performed by : [address], [address] RDW CV 14.6 11.1 - 14.9 % USMAN Comment:Testing performed by : [address] [address] RDW SD 45.0 35.7 - 48.1 fL USMAN Comment:Testing performed by : [address] [address] NRBC abs 0.00 0.00 - 0.01 K/cumm USMAN Comment:Testing performed by : [address], [address] Blood 12/17/2024 6:02 AM DIET AIDE 12/17/2024 8:21 AM DIET AIDE us Notinfile Unknown LAB BLOOD ORDERABLES Final Res ult USMAN [address] [facility] Department of Laboratories [place], [place] [id number] * (ABNORMAL) Erythrocyte sedimentation rate (12/17/2024 6:02 AM DIET AIDE) Erythrocyte sedimentation rate 56(H) 1 - 15 mm/hr USMAN Comment:Testing performed by : [address] [address] Blood 12/17/2024 6:02 AM DIET AIDE 12/17/2024 8:21 AM DIET AIDE us Notinfile Unknown LAB BLOOD ORDERABLES Final Res ult Performing Organization Address [facility] Co de Phone Number JONI[address] [address] * (ABNORMAL) CRP (acute phase) (12/17/2024 6:02 AM DIET AIDE) CRP 10.9(H) <=10.0 mg/L USMAN RAND Comment:Testing performed by : [address] [address] Blood 12/17/2024 6:02 AM DIET AIDE 12/17/2024 8:21 AM DIET AIDE us Notinfile Unknown LAB BLOOD ORDERABLES Final Res ult Performing Organization Address [facility] Co de Phone Number JONI[address] [address] * Uric acid (12/17/2024 6:02 AM DIET AIDE) Uric acid 4.7 3.0 - 8.0 mg/dL USMAN Comment:Testing performed by : [address] [address] Blood 12/17/2024 6:02 AM DIET AIDE 12/17/2024 8:21 AM DIET AIDE us Notinfile Unknown LAB BLOOD ORDERABLES Final Res ult Performing Organization Address [facility] Co de Phone Number JONI[address] [address] * (ABNORMAL) Comprehensive metabolic panel (12/17/2024 6:02 AM DIET AIDE) Sodium 138 135 - 145 mmol/L USMAN RAND Comment:Testing performed by : [address] [address] Potassium, pl 4.4 3.3 - 4.9 mmol/L USMAN RAND Comment:Testing performed by : [address] [address] Chloride 101 97 - 110 mmol/L USMAN Comment:Testing performed by : [address] [address] CO2 27 22 - 32 mmol/L USMAN Comment:Testing performed by : [address] [address] Anion gap 10 2 - 15 mmol/L USMAN Comment:Testing performed by : [address] [address] BUN 13 6 - 25 mg/dL USMAN Comment:Testing performed by : [address] [address] Creatinine 0.67(L) 0.80 - 1.30 mg/dL USMAN Comment:Testing performed by : [address] [address] Glucose 154 70 - 199 mg/dL USMAN [...] was last revised 2022. Testing performed by: [address] [address] Calcium 9.4 8.5 - 10.3 mg/dL USMAN Comment:Testing performed by : [address] [address] Bilirubin, total 0.3 0.1 - 1.2 mg/dL USMAN Comment:Testing performed by : [address] [address] Protein, pl 6.5 6.5 - 8.5 g/dL USMAN Comment:Testing performed by : [address] [address] Albumin 3.5 3.5 - 5.0 g/dL USMAN Comment:Testing performed by : [address] [address] Alk phos 598(H) 40 - 130 Units/L USMAN Comment:Testing performed by : [address] [address] ALT 78(H) 7 - 55 Units/L USMAN Comment:Testing performed by : [address] [address] AST 87(H) 10 - 50 Units/L USMAN Comment:Testing performed by : [address] [address] Blood 12/17/2024 6:02 AM DIET AIDE 12/17/2024 8:21 AM DIET AIDE us Notinfile Unknown LAB BLOOD ORDERABLES Final Res ult Performing Organization Address City/State/[facility] Co de Phone Number USMAN [address] [facility] Department [place] [address] * (ABNORMAL) Basic metabolic panel (12/17/2024 6:02 AM DIET AIDE) Sodium 138 135 - 145 mmol/L USMAN Comment:Testing performed by : [address] [address] Potassium, pl 4.4 3.3 - 4.9 mmol/L USMAN Comment:Testing performed by : [address] [address] Chloride 101 97 - 110 mmol/L USMAN Comment:Testing performed by : [address] [address] CO2 27 22 - 32 mmol/L USMAN Comment:Testing performed by : [address] [address] Anion gap 10 2 - 15 mmol/L USMAN Comment:Testing performed by : [address] [address] BUN 13 6 - 25 mg/dL USMAN Comment:Testing performed by : [address] [address] Creatinine 0.67(L) 0.80 - 1.30 mg/dL USMAN RAND Comment:Testing performed by : [address] [address] Glucose 154 70 - 199 mg/dL USMAN [...] was last revised 2022. Testing performed by: [address] [address] Calcium 9.4 8.5 - 10.3 mg/dL USMAN Comment:Testing performed by : [address] [address] Blood 12/17/2024 6:02 AM DIET AIDE 12/17/2024 8:21 AM DIET AIDE us Notinfile Unknown LAB BLOOD ORDERABLES Final Res ult USMAN [address] [facility] Department of Laboratories [place], [place] [id number] * eGFR (12/13/2024 5:30 AM DIET AIDE) eGFR >90 >=60 mL/min/1. 73 m2 USMAN [...] was last reviewed 2021. Testing performed by: [address] [address] Blood 12/13/2024 5:30 AM DIET AIDE 12/13/2024 8:39 AM DIET AIDE us Notinfile Unknown LAB BLOOD ORDERABLES Final Res ult USMAN [facility]9 [facility] Department [place] [address] * (ABNORMAL) CBC without differential (12/13/2024 5:30 AM DIET AIDE) WBC 9.3 3.8 - 9.9 K/cumm USMAN RAND Comment:Testing performed by : [address] [address] Hgb 10.5(L) 13.0 - 17.5 g/dL USMAN RAND Comment:Testing performed by : [address] [address] Hct 32.6(L) 38.9 - 50.3 % USMAN RAND Comment:Testing performed by : [address] [address] Plt 458(H) 150 - 400 K/cumm USMAN Comment:Testing performed by : [address] [address] MPV 10.2 9.1 - 12.3 fL USMAN RAND Comment:Testing performed by : [address] [address] RBC 3.88(L) 4.30 - 5.80 M/cumm USMAN RAND Comment:Testing performed by : [address] [address] MCV 84.0 81.3 - 96.4 fL USMAN RAND Comment:Testing performed by : [address] [address] MCH 27.1 27.1 - 33.3 pg USMAN RAND Comment:Testing performed by : [address] [address] MCHC 32.2(L) 32.3 - 35.7 g/dL USMAN RAND Comment:Testing performed by : [address] [address] RDW CV 14.6 11.1 - 14.9 % USMAN RAND Comment:Testing performed by : [address] [address] RDW SD 44.4 35.7 - 48.1 fL USMAN RAND Comment:Testing performed by : [address] [address] NRBC abs 0.00 0.00 - 0.01 K/cumm USMAN RAND Comment:Testing performed by : [address] [address] Blood 12/13/2024 5:30 AM DIET AIDE 12/13/2024 8:39 AM DIET AIDE us Notinfile Unknown LAB BLOOD ORDERABLES Final Res ult USMAN RAND [address] [facility] Department [place] [address] * (ABNORMAL) Comprehensive metabolic panel (12/13/2024 5:30 AM DIET AIDE) Sodium 139 135 - 145 mmol/L USMAN RAND Comment:Testing performed by : [address] [address] Potassium, pl 4.5 3.3 - 4.9 mmol/L USMAN RAND Comment:Testing performed by : [address] [address] Chloride 100 97 - 110 mmol/L USMAN RAND Comment:Testing performed by : [address] [address] CO2 27 22 - 32 mmol/L USMAN RAND Comment:Testing performed by : [address] [address] Anion gap 12 2 - 15 mmol/L USMAN Comment:Testing performed by : [address] [address] BUN 11 6 - 25 mg/dL USMAN Comment:Testing performed by : [address] [address] Creatinine 0.50(L) 0.80 - 1.30 mg/dL USMAN Comment:Testing performed by : [address] [address] Glucose 127 70 - 199 mg/dL USMAN [...] was last revised 2022. Testing performed by: [address] [address] Calcium 9.6 8.5 - 10.3 mg/dL USMAN Comment:Testing performed by : [address] [address] Bilirubin, total 0.4 0.1 - 1.2 mg/dL USMAN Comment:Testing performed by : [address] [address] Protein, pl 6.6 6.5 - 8.5 g/dL USMAN Comment:Testing performed by : [address] [address] Albumin 3.6 3.5 - 5.0 g/dL USMAN Comment:Testing performed by : [address] [address] Alk phos 802(H) 40 - 130 Units/L USMAN Comment:Testing performed by : [address] [place] [address] ALT 57(H) 7 - 55 Units/L USMAN RAND Comment:Testing performed by : [facility], [address] [place] [address]., [address] AST 76(H) 10 - 50 Units/L USMAN RAND Comment:Testing performed by : [facility], [address] [place] [address]., [address] Blood 12/13/2024 5:30 AM DIET AIDE 12/13/2024 8:39 AM DIET AIDE us Notinfile Unknown LAB BLOOD ORDERABLES Final Res ult USMAN RAND [address] [facility] [place] [address] from Last 3 Months Insurance [facility] Care Teams Extractions Technologist Relationship Specialty Start Date End Date Matthew Sorenson PA [address] [place] [address] PCP - General Family Practice 05/04/23 Matthew Sorenson PA [address] [place] [address] Family Practice 09/12/22
--- OUTSIDE RECORDS SUMMARY | 2025-03-11 20:49 | XMS_ITS ---
Author Organization [facility] Address [address] [facility] [place] [address] Care Team Providers Care Service Cashier Name Role Phone Matthew Sorenson Primary Care Provider [phone] Jose Luis Brooks MD Unavailable [phone] Marilyn Bennett RN Unavailable Unavailable Active Problems [...]
--- OUTSIDE RECORDS SUMMARY | 2025-03-11 20:49 | XMS_ITS | Encounter Summary ---
Author Organization [facility] Address [address] [facility] [place] [address] Care Team Providers Care Social Secretary Name Role Phone Matthew Sorenson Primary Care Provider [phone] Jose Luis Brooks MD Unavailable [phone] Abelardo Presley MD Unavailable [phone] Bo Francisco MD Unavailable [phone] Angie Rogers MD Unavailable Katie GutierrezD Unavailable Unavaila Jaja Casillas RN Unavailable Unavailable Abimbola Waters STOCK HOLDER-EXPERIMENTAL MECHANIC [employer] Unavailable [phone] Perri Dexter STOCK HOLDER-EXPERIMENTAL MECHANIC [employer] Unavailable [phone] Marilyn Bennett RN Unavailable Unavailable Erasmo Roberson RN Unavailable Unavailable Alexandra Cota RN Unavailable Unavailable Alda Braswell Unavailable Unavailable Lucia Sharif LCSW Unavailable Unavailab le Reason for Visit * Reason Onset Date Comments MEDICATION REFILL 10/20/2024 Encounter Details Date Type Department Care Team (Late st Contact Info) Description 10/20/2024 Refill [facility] [address] [address] [place] [address] Gina Denton MD [address] [place] [address] MEDICATION REFILL Social History Tobacco Use Types [...] Recorded Patient Health Questionnaire-2 Score 1 08/12/2024 [facility] - [...] place to sleep or slept in a skilled nursing (including now)? No 06/04/2024 Housing Stability Vital Sign Answer Obed e Recorded In the last 12 months, was t here a time when you were not able to pay the mortgage or rent on time? Yes 10/24/2024 In the past 12 months, how m any times have you moved where you were living? 0 10/24/2024 At any time in the past 12 m [facility], were you homeless or living in a skilled nursing (including now)? 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 Gender Identity Not on file Sexual Orientation [...] Info) Description 04/06/2025 8:40 AM CDT Appointment [facility] [address] [place] [address] Arya Rm MD [address] [place] [address] [place] [address] 04/06/2025 9:15 AM CDT Office Visit [facility] - Neurosurgery [facility] [facility], [place] [id number] Arya Rm MD [address] [place] [address] [address] [place] [address] 05/28/2025 2:30 PM CDT Office Visit [facility] - Infectious Disease [address] [place] [address], [place] [address] Cristian Mcmillan MD [address] [place] [phone] documented as of this encounter Visit Diagnoses Not on filedocumented in this encounter Additional Health Concerns Infection Onset Date Last Indicated Resolved Time 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 CDIFF Under Investigation 01/13/2025 01/13/2025 7:19 PM CDT COVID-19 Under Investigation 01/13/2025 01/13/2025 01/13/2025 4:01 PM CDT COVID-19 Under Investigation 02/12/2025 02/12/2025 02/12/2025 4:07 PM CDT documented as of this encounter Care Teams Social Secretary Relationship Specialty Start Date End Date Matthew Sorenson PA [address] [place] [address] PCP - General 02/02/22 Jose Luis Brooks MD [address] [place] [address] Dean Of Faculty/Oncologis t Hematology and Oncology 08/29/24 Abelardo Presley MD [address] [place] [address] Hematology and Oncology 08/29/24 03/04/25 Bo Francisco MD [address] [place] [phone] Hematology and Oncology 08/29/24 03/04/25 Angie Rogers MD [address] [place] [address] Physician Hematology and Oncology 08/29/24 03/04/25 Katie Gutierrez, PharmD 08/29/24 03/04/25 Jaja Rayo, RN Registered Nurse 08/29/24 03/04/25 Abimbola Waters APRN-EXPERIMENTAL MECHANIC [employer] [address] [place] [address] Nurse Practitioner Nurse Practitioner 08/29/24 03/04/25 Perri Dexter, DAYNA-EXPERIMENTAL MECHANIC [employer] [address] [place] [phone] Nurse Practitioner Nurse Practitioner 08/29/24 03/04/25 Marilyn Bennett, RN Coordinator 08/29/24 Erasmo Roberson, RN Registered Nurse 08/29/24 03/04/25 Alexandra Cota, RN Registered Nurse 08/29/24 03/04/25 Alda Braswell 08/29/24 03/04/25 Lucia Sharif, BASKET PATCHER Director Commercial Sales 08/29/24 03/04/25 documented as of this encounter
--- OUTSIDE RECORDS SUMMARY | 2025-03-11 20:49 | XMS_ITS | Clinical Summary ---
Author Organization [facility] Address [facility] [place] [address] Care Team Providers Care Visual Artist Name Role Phone Matthew Sorenson Primary Care Provider [phone] Allergies Active Allergy Reactions Criticality Noted Date Comments Morphine Itching 12/17/2024 Vancomycin Redness 12/17/2024 Encounters Date Type Department Care Team Description 12/17/2024 6:40 PM DINKEY ENGINEER - 12/17/2024 10:16 PM DINKEY ENGINEER Emergency [facility] [place] [address] Lew Gonsalves MD Wrist Swelling Discharge Disposition: [...] Sex Assigned at Male 12/17/2024 8:02 PM DINKEY ENGINEER Legal Sex Male 9:50 PM DINKEY ENGINEER Gender Identity Not on file Sexual Orientation Not on file Last Filed Vital Signs Vital Sign Reading Time Taken Comments Blood Pressure 159/95 12/17/2024 8:05 PM DINKEY ENGINEER Pulse 99 12/17/2024 8:05 PM DINKEY ENGINEER Temperature 36.7 C (98.1 F) 12/17/2024 6:37 PM DINKEY ENGINEER Respiratory Rate 8 12/17/2024 8:05 PM DINKEY ENGINEER Oxygen Saturation 99% 12/17/2024 8:05 PM DINKEY ENGINEER Inhaled Oxygen Concentration - - Weight 107.2 kg (236 lb 5.3 oz) 12/17/2024 6:37 PM DINKEY ENGINEER Height 185.4 cm (6' 1 ) 12/17/2024 6:37 PM DINKEY ENGINEER Body Mass Index 31.18 12/17/2024 6:37 PM DINKEY ENGINEER Plan of Treatment Health Maintenance Due Date [...] SPINE WO CON STAT 12/17/2024 7:55 PM DINKEY ENGINEER CULTURE, WOUND, W/GRAM STAIN STAT 12/17/2024 7:26 PM DINKEY ENGINEER PROTHROMBIN TIME, VENOUS STAT 12/17/2024 7:13 PM DINKEY ENGINEER XR WRIST RT MIN 3V STAT 12/17/2024 7: 02 PM DINKEY ENGINEER LACTIC ACID W REFLEX (SEPSIS) STAT 12/17/2024 6:53 PM DINKEY ENGINEER COMPREHENSIVE METABOLIC PANEL STAT 12/17/2024 6:53 PM DINKEY ENGINEER CBC W/DIFF AUTOMATED STAT 12/17/2024 6:53 PM DINKEY ENGINEER from Last 3 Months Results * CT CERV SPINE WO CON (12/17/2024 7:55 PM DINKEY ENGINEER) Anatomical Region Laterality Modality Spine Computed Tomogra phy 12/17/2024 7:58 PM DINKEY ENGINEER Impressions 12/17/2024 8:07 PM DINKEY ENGINEER IMPRESSION:DISC ENDPLATE, UNCOVERTEBRAL AND FACET SPURRING, WITH [...] 12/17/2024 7:58 PM Narrative 12/17/2024 8:07 PM DINKEY ENGINEER [address] [address] EXAMINATION: CT CERVICAL SPINE WITHOUT CONTRAST EXAM [...] Procedure Note Neto Stein MD - 12/17/2024 [facility] [address] [place], [place] [address] EXAMINATION: CT CERVICAL SPINE WITHOUT CONTRAST EXAM [...] CULTURE, WOUND, W/GRAM STAIN (12/17/2024 7:26 PM DINKEY ENGINEER) SPEC DESCRIPTION BACK 12/17/2024 7:25 PM DINKEY ENGINEER [facility] SPECIAL REQUESTS NO SPECIAL REQUEST 12/17/2024 7:25 PM DINKEY ENGINEER [facility] GRAM STAIN RESULT NO WHITE BLOOD CELLS SEEN 12/18/2024 7:30 AM DINKEY ENGINEER [facility] GRAM STAIN RESULT NO ORGANISMS SEEN 12/18/2024 7:30 AM DINKEY ENGINEER [facility] CULTURE RESULT NO GROWTH 3 DAYS 12/20/2024 9:13 AM DINKEY ENGINEER [facility] SPECIMEN FROM TRUNK / Unknown 12/17/2024 7:26 PM DINKEY ENGINEER 12/17/2024 7:41 PM DINKEY ENGINEER Nahed Koenig NP MICROBIOLOGY - GENERAL ORDERA BLES Final Result [facility] [address] [place] [address], [place] [phone] * PROTIME/INR, VENOUS (12/17/2024 7:13 PM DINKEY ENGINEER) PROTIME 12.5 10.2 - 12.9 SEC 12/17/2024 7:45 PM DINKEY ENGINEER [facility] INR 1.1 12/17/2024 7:45 PM DINKEY ENGINEER [facility] Comment: Recommended INR Therapeutic Goals: 2.0-3.0 Routine Therapy 2.5-3.5 Mechanical Prosthetic Valves (High Risk) 12/17/2024 7:13 PM DINKEY ENGINEER us [facility]hed [employer] [facility] Final Result [facility] [address] [place] [address], [place] [phone] * XR WRIST RT MIN 3V (12/17/2024 7:02 PM DINKEY ENGINEER) Anatomical Region Laterality Modality Wrist Radiographic Lily ging 12/17/2024 7:15 PM DINKEY ENGINEER Impressions 12/17/2024 7:15 PM DINKEY ENGINEER IMPRESSION: No acute findings. Referred By: Interpreted By: Henry West MD, 12/17/2024 7:15 PM Narrative 12/17/2024 7:15 PM DINKEY ENGINEER [address] [address] EXAMINATION: XR WRIST RT MIN 3V HISTORY: Pain DATE: 12/17/2024 6:50 PM COMPARISON: None TECHNIQUE: PA, oblique and lateral views of the right wrist. 3 images. FINDINGS: No acute fracture or dislocation. Mild negative ulnar variance. Joint spaces are unremarkable. No destructive bone lesion. Procedure Note Henry West MD - 12/17/[address] [address] EXAMINATION: XR WRIST RT MIN 3V HISTORY: Pain DATE: 12/17/2024 6:50 PM COMPARISON: None TECHNIQUE: PA, oblique and lateral views of the right wrist. 3 images. FINDINGS: No acute fracture or dislocation. Mild negative ulnar variance.Joint spaces are unremarkable. No destructive bone lesion. IMPRESSION: No acute findings. Referred By: Interpreted By: Henry West MD, 12/17/2024 7:15 PM Nahed Koenig [facility] Final Result * LACTIC ACID W REFLEX (SEPSIS) (12/17/2024 6:53 PM DINKEY ENGINEER) LACTIC ACID VENOUS 1.6 0.4 - 2.0 MMOL/L 12/17/2024 7:27 PM DINKEY ENGINEER [facility] 12/17/2024 6:53 PM DINKEY ENGINEER Nahed Koenig [facility] Final Result [facility] [address] [place] [address], [place] [phone] * (ABNORMAL) COMPREHENSIVE METABOLIC PANEL (12/17/2024 6:53 PM DINKEY ENGINEER) GLUCOSE 149(H) 70 - 99 MG/DL 12/17/2024 7:33 PM DINKEY ENGINEER [facility] BUN 14 7 - 18 MG/DL 12/17/2024 7:33 PM [facility] CREATININE S/P/B 0.86 0.7 - 1.3 MG/DL 12/17/2024 7:33 PM DINKEY ENGINEER [facility] SODIUM S/P/B 134(L) 136 - 145 MMOL/L 12/17/2024 7:33 PM DINKEY ENGINEER [facility] POTASSIUM S/P/B 3.7 3.5 - 5.1 MMOL/L 12/17/2024 7:33 PM DINKEY ENGINEER [facility] CHLORIDE S/P/B 100 97 - 115 MMOL/L 12/17/2024 7:33 PM [facility] CO2 29.6 21 - 32 MMOL/L 12/17/2024 7:33 PM [facility] CALCIUM S/P/B 9.0 8.5 - 10.1 MG/DL 12/17/2024 7:33 PM [facility] BILIRUBIN TOTAL S/P/B 0.3 0.2 - 1.2 MG/DL 12/17/2024 7:33 PM [facility] Comment: THIS ASSAY IS NOT RECOMMENDED FOR PATIENTS UNDERGOING TREATMENT WITH ELTROMBOPAG DUE TO THE POTENTIAL FOR FALSELY ELEVATED RESULTS. TOTAL PROTEIN S/P/B 7.2 6.4 - 8.2 G/DL 12/17/2024 7:33 PM [facility] ALBUMIN S/P/B 3.0(L) 3.4 - 5.0 G/DL 12/17/2024 7:33 PM [facility] AST 87(H) 15 - 37 U/L 12/17/2024 7:33 PM [facility] ALT 85(H) 16 - 60 U/L 12/17/2024 7:33 PM [facility] ALKALINE PHOSPHATASE S/P/B 625(H) 50 - 136 U/L 12/17/2024 7:33 PM [facility] ANION GAP 4.4 2 - 10 MMOL/L 12/17/2024 7:33 PM [facility] BUN CREATININE RATIO 16.3 6 - 26 12/17/2024 7:33 PM [facility] A/G RATIO 0.7(L) 1.0 - 2.0 RATIO 12/17/2024 7:33 PM [facility] GFR ESTIMATE >90 >90 ML/MIN/1.7 3 M2 12/17/2024 7:33 PM [facility] Comment: NOTE: eGFR is not calculated for patients <18 years of age or gender unknown. This is an estimated GFR calculation using the new CKD EPI creatinine equation without race and so does not require a correction factor for race. This estimated GFR should not be used for calculating drug doses. 12/17/2024 6:53 PM DINKEY ENGINEER us Nahed Koenig NP LABORATORY Final Result [facility] [address] [place] [address], * (ABNORMAL) CBC W/DIFF AUTOMATED (12/17/2024 6:53 PM DINKEY ENGINEER) WBC 10.81 4.5 - 11.0 x10'3/uL 12/17/2024 7:12 PM DINKEY ENGINEER [facility] RBC 4.12(L) 4.70 - 6.10 x10'6/uL 12/17/2024 7:12 PM DINKEY ENGINEER [facility] HGB 11.1(L) 14.0 - 18.0 G/DL 12/17/2024 7:12 PM DINKEY ENGINEER [facility] HCT 35.0(L) 43.0 - 54.0 % 12/17/2024 7:12 PM DINKEY ENGINEER [facility] MCV 85.0 80.0 - 94.0 FL 12/17/2024 7:12 PM DINKEY ENGINEER [facility] MCH 26.9(L) 27.0 - 31.0 PG 12/17/2024 7:12 PM DINKEY ENGINEER [facility] MCHC 31.7(L) 32.0 - 36.0 G/DL 12/17/2024 7:12 PM DINKEY ENGINEER [facility] RDW 14.4 11.5 - 14.5 % 12/17/2024 7:12 PM DINKEY ENGINEER [facility] PLT 444(H) 130 - 400 x10'3/uL 12/17/2024 7:12 PM DINKEY ENGINEER [facility] MPV 10.1 9.3 - 12.2 FL 12/17/2024 7:12 PM [facility] DIFFERENTIAL TYPE AUTOMATED DIFFERENTIAL 12/17/2024 7:12 PM [facility] NEUTROPHILS % 53.7 % 12/17/2024 7:12 PM [facility] LYMPHOCYTES % 28.1 % 12/17/2024 7:12 PM [facility] MONOCYTES % 12.5 % 12/17/2024 7:12 PM [facility] EOSINOPHILS 4.5 % 12/17/2024 7:12 PM [facility] BASOPHILS 0.6 % 12/17/2024 7:12 PM [facility] IMMATURE GRANS % 0.6 % 12/17/19 7:12 PM [facility] ABS. NEUTROPHILS 5.81 1.80 - 7.70 x10'3/uL 12/17/2024 7:12 PM [facility] ABS. LYMPHOCYTES 3.04 1.00 - 4.80 x10'3/uL 12/17/2024 7:12 PM [facility] ABS. MONOCYTES 1.35(H) 0.30 - 0.82 x10'3/uL 12/17/2024 7:12 PM [facility] ABS. EOSINOPHILS 0.49 0.04 - 0.54 x10'3/uL 12/17/2024 7:12 PM [facility] ABS. BASOPHILS 0.06 0.01 - 0.08 x10'3/uL 12/17/2024 7:12 PM [facility] ABS. IMMATURE GRANULOCYTES 0.06 0.00 - 0.49 x10'3/uL 12/17/2024 7:12 PM [facility] 12/17/2024 6:53 PM DINKEY ENGINEER us Nahed Koenig [facility] Final Result [facility] [address] [place] [address], [place] [phone] from Last 3 Months Insurance [facility] Care Teams Visual Artist Relationship Specialty Start Date End Date Matthew Sorenson PA PCP - General PHYSICIAN NURSE PRACTITIONER PHYSICIANS ASSISTANT 12/17/24
--- OUTSIDE RECORDS SUMMARY | 2025-03-11 20:50 | XMS_ITS | Encounter Summary ---
Author Organization [facility] Address [address] [place] [address] Care Team Providers Care Mold Cooler Name Role Phone Matthew Sorenson Primary Care Provider [phone] Jose Luis Brooks MD Unavailable [phone] Abelardo Presley MD Unavailable [phone] Bo Francisco MD Unavailable [phone] Angie Rogers MD Unavailable Katie Gutierrez PharmD Unavailable Unavaila Jaja Casillas RN Unavailable Unavailable Abimbola Waters WET ROASTER-BEER RUNNER Unavailable [phone] Perri Dexter WET ROASTER-BEER RUNNER Unavailable [phone] Marilyn Bennett RN Unavailable Unavailable Erasmo Roberson RN Unavailable Unavailable Alexandra Cota RN Unavailable Unavailable Alda Braswell Unavailable Unavailable Lucia Sharif LCSW Unavailable Unavailab le Encounter Details Date Type Department Care Team (Late st Contact Info) Description 02/22/2025 Results Follow-Up [facility] IVR [address] [place] [address] Juan Valencia MD [address] OF GASTROENTEROLOGY [place], [place] [id number] Social History Tobacco Use Types Packs/Day Years [...] any time in the past 12 m [facility], were you homeless or living in a fci (including now)? No 11/23/2024 Sex and Gender Information Value Date Recorded Sex Assigned at Not on file Legal Sex Male 11:44 AM SYSTEMS QA ANALYST Gender Identity Not on file Sexual Orientation [...] Info) Description 04/06/2025 8:40 AM CDT Appointment [facility] CAT SCAN [address] [place] [address] Arya Rm MD [address] [place] [address] [place] [phone] 04/06/2025 9:15 AM CDT Office Visit [facility] - Neurosurgery [address] [facility], [place] [phone] Arya Rm MD [address] [place] [address] [address] [place] [phone] 05/28/2025 2:30 PM CDT Office Visit [facility] - Infectious Disease [address] [place] [address], [place] [phone] Cristian Mcmillan MD [address] [place] [phone] documented as of this encounter Visit Diagnoses Not on filedocumented in this encounter Additional Health Concerns Infection Onset Date Last Indicated Resolved Time 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 documented as of this encounter Care Teams Mold Cooler Relationship Specialty Start Date End Date Matthew Sorenson PA [address] [place] [phone] PCP - General 02/02/22 Jose Luis Brooks MD [address] [place] [id number] Legend Maker/Oncologis t Hematology and Oncology 08/29/24 Abelardo Presley MD [address] [place] [phone] Hematology and Oncology 08/29/24 03/04/25 Bo Francisco MD [address] [place] [phone] Hematology and Oncology 08/29/24 03/04/25 Angie Rogers MD [address] [place] [phone] Physician Hematology and Oncology 08/29/24 03/04/25 Katie Gutierrez, PharmD 08/29/24 03/04/25 Jaja Rayo RN Registered Nurse 08/29/24 03/04/25 Abimbola Waters APRN-CNP [address] [place] [address] Nurse Practitioner Nurse Practitioner 08/29/24 03/04/25 Perri Dexter APRN-CNP [address] [place] [address] Nurse Practitioner Nurse Practitioner 08/29/24 03/04/25 Marilyn Bennett, LOLI Coordinator 08/29/24 Erasmo Roberson, RN Registered Nurse 08/29/24 03/04/25 Alexandra Cota, RN Registered Nurse 08/29/24 03/04/25 Alda Braswell 08/29/24 03/04/25 Lucia Sharif LCSW Felling Machine Operator 08/29/24 03/04/25 documented as of this encounter
--- OUTSIDE RECORDS SUMMARY | 2025-03-11 20:50 | XMS_ITS | Clinical Summary ---
Author Organization [facility] Address [address] [facility] [place] [address] Care Team Providers Care Metal Weather Stripper Name Role Phone Matthew Sorenson Primary Care Provider [phone] Jose Luis Brooks MD Unavailable [phone] Marilyn Bennett RN Unavailable Unavailable Source Comments [facility],non-owned Affiliates and Associated Physician Practices is amultiple site organization consisting of ambulatory clinics and hospital sitesin [place], [place], [place] and [place]. This disclosure is being madepursuant to the Care Everywhere program and may not contain all information available regarding this patient. Last updated 18.[facility] Allergies Active Allergy Reactions Criticality Noted Date [...] verio strips, Reported on 02/26/2025 Continuous Glucose Metal Drawer (Dexcom G7 Metal Drawer) SONIA as directed Act khari Continuous Glucose [...] once daily Activ e TRUEplus 5-Bevel Pen Henderson 31G X 6 MM MIS USE TO [...] - 03/02/2025 11:59 PM CDT Hospital Encounter [facility] [address] [place] [address] Jose Luis Brooks MD Kunkle, Kelly, LOCKSTITCH FRONT EDGE TAPE SEWER-TURRET PRESS OPERATOR Discharge Disposition: Home or Self Care 02/26/2025 2:30 PM CDT Office Visit [facility] - Infectious Disease [address] [place] [phone] Jose Luis Brooks MD Stack, Matthew A, MD [...] Telephone [facility] - Infectious Disease [address] [place] [phone] Eliza Solano, LOLI Pre Authorization 02/24/2025 Refill [facility] [address] [place] [address] Da, Erasmo J, GAMING ASSOCIATE REFILL 02/23/2025 Orders Only [facility] [address] [place] [address] Jose Luis Brooks MD Multiple myeloma, remission status unspecified (HCC) 02/23/2025 Telephone [facility] [address] [place] [address] Marilyn Bennett RN 02/22/2025 Results Follow-Up [facility] [address] [place] [phone] Juan Valencia MD 02/19/2025 11:37 AM CDT Hospital Encounter [facility] IVR [address] [place] [phone] Juan Valencia MD [facility] Radiology 02/19/2025 8:45 AM CDT - 02/19/2025 9:15 AM CDT Surgery [facility] ENDOSCOPY [address] [place] [phone] Juan Valencia MD BIOPSY LIVER (NEEDLE/PERCUTANEOUS )--plt 335, stat INR 02/19/2025 7:32 AM CDT - 02/19/2025 2:57 PM CDT Hospital Encounter [facility] OP [address] [place] [phone] Juan Valencia MD Surgery General Discharge Disposition: Home or Self Care 02/19/2025 Travel 02/18/2025 Telephone [facility] - Centralized Scheduling [address] [place] [phone] Cristian Mcmillan MD Appointment 02/12/2025 11:55 AM CDT - 02/12/2025 12:30 PM CDT Surgery [facility] ENDOSCOPY [address] [place] [phone] Juan Valencia MD Not Performed BIOPSY LIVER (NEEDLE/PERCUTANEOUS )--office visit to follow--plt 259, stat INR 02/12/2025 11:10 AM CDT - 02/12/2025 12:01 PM CDT Hospital Encounter [facility] [address] [place] [phone] Juan Valencia MD Surgery General Discharge Disposition: Home or Self Care 02/12/2025 9:57 AM CDT - 02/12/2025 11:09 AM CDT Hospital Encounter [facility] [address] [place] [address] Jose Luis Brooks MD Discharge Disposition: Home or Self Care 02/12/2025 Travel 02/06/[address] [address] Erasmo Roberson, LOLI 02/06/2025 Orders Only [address] [address] Erasmo Roberson, RN Multiple myeloma, remission status unspecified (HCC) 02/04/2025 8:00 AM CDT - 02/04/2025 11:59 PM CDT Hospital Encounter [facility] EEG/EMG [address] [place] [address] Jose Luis Brooks MD Hayat, Ghazala S, MD Discharge Disposition: Home or Self Care 02/04/2025 Travel 02/02/2025 11:15 AM CDT Office Visit [facility] - Neurosurgery [address] [facility], [place] [address] Arya Rm MD S/P spinal surgery (Primary Dx) 02/02/2025 10:39 AM CDT - 02/02/2025 11:59 PM CDT Hospital Encounter [facility] DIAGNOSTIC RAD OP [address] [place] [address] Perri Dexter APRN-CNP Discharge Disposition: Home or Self Care 02/02/2025 8:52 AM CDT - 02/02/2025 10:38 AM CDT Hospital Encounter [facility] [address] [place] [address] Perri Dexter APRN-CNP Discharge Disposition: Home or Self Care 02/02/2025 Orders Only [facility] [address] [place] [address] Perri Dexter APRN-CNP Multiple myeloma, remission status unspecified (HCC) ; Pre-transplant evaluation for stem cell transplant 02/02/2025 Travel 01/22/2025 Orders Only [facility] - Hematology/Oncology [address] [place] [phone] Jose Luis Brooks MD 01/16/2025 Refill [facility] - Infectious Disease [address] [facility] [place] [address] Cristian Mcmillan MD MEDICATION REFILL 01/15/2025 Refill [facility] [address] [place] [address] Perri Dexter APRN-CNP Refill Request 01/13/2025 12:25 PM CDT - 01/13/2025 11:59 PM CDT Hospital Encounter [facility] CAT SCAN [address] [place] [address] Perri Dexter APRN-CNP Discharge Disposition: Home or Self Care 01/13/2025 10:21 AM CDT - 01/13/2025 12:24 PM CDT Hospital Encounter [facility] [address] [place] [address] Jose Luis Brooks MD Kunkle, Kelly, APRN-CNP Discharge Disposition: Home or Self Care 01/13/2025 Orders Only [facility] [address] [place] [address] Jose Luis Brooks MD Cancer associated pain 01/13/2025 Travel 01/13/2025 Telephone [facility] [address] [place] [address] Marilyn Bennett, LOLI 01/13/2025 Telephone [facility] [address] [place] [address] Maddi Burger APRN-MUSEUM INFORMATICS SPECIALIST GI Problem 01/01/2025 8:00 AM EXHAUST MACHINE OPERATOR - 01/01/2025 11:59 PM EXHAUST MACHINE OPERATOR Hospital Encounter [facility] RAD ONC [address] [place] [address] Jennifer Brock MD Discharge Disposition: Home or Self Care 01/01/2025 6:28 AM EXHAUST MACHINE OPERATOR - 01/01/2025 7:59 AM EXHAUST MACHINE OPERATOR Hospital Encounter [facility] MRI [address] [place] [address] Jennifer Brock MD Discharge Disposition: Home or Self Care 01/01/2025 6:28 AM EXHAUST MACHINE OPERATOR - 01/01/2025 7:59 AM EXHAUST MACHINE OPERATOR Hospital Encounter [facility] MRI [address] [place] [address] Jennifer Brock MD Discharge Disposition: Home or Self Care 01/01/2025 Orders Only [facility] [address] [place] [address] Jose Luis Brooks MD 01/01/2025 Travel 12/25/2024 Orders Only [facility] - Infectious Disease [address] [place] [phone] Cristian Mcmillan MD Chronic hepatitis C without hepatic coma ; Multiple myeloma not having achieved remission 12/24/2024 11:30 AM EXHAUST MACHINE OPERATOR - 12/24/2024 11:59 PM EXHAUST MACHINE OPERATOR Hospital Encounter [facility] [address] [place] [address] Jose Luis Brooks MD Kunkle, Kelly, APRN-CNP Discharge Disposition: Home or Self Care 12/24/2024 11:15 AM EXHAUST MACHINE OPERATOR Office Visit [facility] - Neurosurgery [address] [place] [address] [address] [place] [address] Anne Miller APRN-CNP S/P spinal surgery (Primary Dx); Numbness and tingling of right hand 12/24/2024 Orders Only [facility] [address] [place] [address] Jose Luis Brooks MD Multiple myeloma not having achieved remission 12/24/2024 Travel 12/19/2024 Orders Only [facility] [address] [place] [address] Jose Luis Brooks MD 12/18/2024 2:30 PM EXHAUST MACHINE OPERATOR Office Visit [facility] - Infectious Disease [address] [place] [address] [place] [address] Cristian Mcmillan MD MRSA bacteremia (Primary Dx); Acute pain of right wrist; Acute on chronic low back pain; Acute osteomyelitis of lumbar spine; Orthopedic hardware present; Multiple myeloma not having achieved remission; Chest wall abscess; Chronic hepatitis C without hepatic coma; History of illicit drug use; Acute septic pulmonary embolism without acute cor pulmonale; Elevated LFTs; Routine health maintenance 12/18/2024 Travel 12/18/2024 Telephone [facility] [address] [place] [address] Marilyn Bennett RN 12/17/2024 Telephone [facility] 7N ACUTE [address] [place] [address] Shayy Lakhani, DAYNA-TURRET PRESS OPERATOR Follow-up from Last 3 Months Family History [...] Recorded Patient Health Questionnaire-2 Score 0 11/20/2024 [facility] Occupat ional Health - Occupational Stress [...] any time in the past 12 m [facility], were you homeless or living in a fci (including now)? No 11/23/2024 Sex and Gender Information Value Date Recorded Sex Assigned at Not on file Legal Sex Male 11:44 AM EXHAUST MACHINE OPERATOR Gender Identity Not on file Sexual Orientation Not on file Last Filed Vital Signs Vital Sign Reading Time Taken Comments Blood Pressure 133/102 03/02/2025 11:00 AM CDT Pulse 92 03/02/2025 11:00 AM CDT Temperature 36.6 C (97.9 F) 03/02/2025 11:00 AM CDT Respiratory Rate 18 03/02/2025 11:00 AM CDT Oxygen Saturation 99% 03/02/2025 11:00 AM CDT Inhaled Oxygen Concentration 21% 02/19/2025 1:30 PM CDT Weight 108.9 kg (240 lb) 02/26/2025 2:36 PM CDT Height 182.9 cm (6') 02/26/2025 2:36 PM CDT Body Mass Index 32.55 02/26/2025 2:36 PM CDT Plan of Treatment Upcoming Encounters Date Type Department Care Team (Late st Contact Info) Description 04/06/2025 8:40 AM CDT Appointment [facility] CAT SCAN [address] [place] [phone] Arya Rm MD [address] [place] [address] [address] [place] [address] 04/06/2025 9:15 AM CDT Office Visit [facility] - Neurosurgery [address] [place] [phone] Arya Rm MD [address] [place] [address] [address] [address] 05/28/2025 2:30 PM CDT Office Visit [facility] - Infectious Disease [address] [place] [phone] Cristian Mcmillan MD [address] [place] [phone] Health Maintenance Due Date Last Done Comments [...] this topic Medical Devices Implanted Type Area Clinical Rehabilitation Liaison Device Identifier Shelf Expiration Date Model / Serial / Lot Kit Spnl 5.8mm Spinejack Implanted:Qty: 1 on 07/22/2024 by Arya Rm MD at [facility] N/A: Spine Lumbar Dottie Spine 10/28/2024 [id number] / / [id number] Kit Bone Cmnt Vertaplex Hv Autoplex Wo Implanted:Qty: 1 on 07/22/2024 by Arya Rm MD at [facility] N/A: Spine Lumbar Dottie Spine 05/29/2025 [id number] / / [id number] Port Implinfn Powerport Clrvu Argd Nya Implanted:Qty: 1 on 08/20/2024 by Vic Callahan MD at [facility] Right: Chest Wall Bard Peripheral Vascular 08/28/2025 [id number] / / [id number] Mixer Bone Cmnt Kyphon C20gm Ll Fit Implanted:Qty: 1 on 12/02/2024 by Arya Rm MD at [facility] N/A: Spine Lumbar Kyphon Inc [id number] / / Cmnt Bone Hv-R Kphx Mxr Grad Mrk Dspns Implanted:Qty: 1 on 12/02/2024 by Arya Rm MD at [facility] N/A: Spine Lumbar Kyphon Inc [id number] / / Graft Bone Grftn Dbm Plif 10x2.5cm Implanted:Qty: 1 on 12/02/2024 by Arya Rm MD at [facility] N/A: Spine Lumbar Osteotech Inc [id number] / / Ezekiel Spnl 500mm 5.5mm Cd Hzn Str Ti Ln Cp Implanted:Qty: 1 on 12/02/2024 by Arya Rm MD at [facility] N/A: Spine Lumbar Medtronic Inc [id number] / / Graft Bone Grftn Dbm Aspt 5x2.5cm Post Implanted:Qty: 1 on 12/02/2024 by Arya Rm MD at [facility] N/A: Spine Lumbar Medtronic Inc [id number] / / Screw Set Ti Spnl Brk Off Cd Hzn Nonster Implanted:Qty: 8 on 12/02/2024 by Arya Rm MD at [facility] N/A: Spine Lumbar Medtronic Inc [id number] / / Screw 7.5mm 55mm Ma Spne Solera Cd Hzn Implanted:Qty: 2 on 12/02/2024 by Arya Rm MD at [facility] N/A: Spine Lumbar Medtronic Inc [id number] / / Screw 7.5mm 50mm Ma Spne Solera Cd Hzn Implanted:Qty: 6 on 12/02/2024 by Arya Rm MD at [facility] Medtronic Inc [id number] / / Slnt Dura Duraseal Pg Trilysine Amine 5 Implanted:Qty: 1 on 12/02/2024 by Arya Rm MD at [facility] N/A: Spine Lumbar Integra Lifesciences Thang [id number] / / Explanted Type Area Clinical Rehabilitation Liaison Device Identifier Shelf Expiration Date Model / Serial / Lot Kit Osteocool Srg 10ga Bone Acc Explanted:Qty: 2 on 07/22/2024 by Arya Rm MD at [facility] N/A: Spine Lumbar Medtronic Inc [id number] / / [id number] Description:Access device, n ot an implant. No other options in system Probe 17ga 20mm Rf Eltx Osteocool 2mm Explanted:Qty: 1 on 07/22/2024 by Arya Rm MD at [facility] N/A: Spine Lumbar Medtronic Inc 03/26/2027 [id number] / / [id number] Description:Access device, n ot an implant. No [...] Multiple myeloma not having achieved remission (HCC) MS US GUIDED NEEDLE PLACEMENT 02/19/2025 9:03 AM [...] Multiple myeloma not having achieved remission (HCC) [id number]|2025-03-11 20:50:00|2025-03-11 20:48:00|XMS_ITS|BKG DAPOLOON|External Medical Summaries|[id number]|" Encounter Summary Created on: March 11, 2025 Joselito Nguyen : 1980 Sex: Male Author Organization [facility] Address [facility] [place] [address] Care Team Providers Care Metal Weather Stripper Name Role Phone Matthew Sorenson Primary Care Provider [phone] Jose Luis Brooks MD Unavailable Abelardo Presley MD Unavailable [phone] Bo Francisco MD Unavailable [phone] Angie Rogers MD Unavailable Katie Gutierrez PharmD Unavailable Unavaila Jaja Casillas RN Unavailable Unavailable Abimbola Waters LOCKSTITCH FRONT EDGE TAPE SEWER-TURRET PRESS OPERATOR Unavailable [phone] Perri Dexter LOCKSTITCH FRONT EDGE TAPE SEWER-TURRET PRESS OPERATOR Unavailable [phone] Marilyn Bennett RN Unavailable Unavailable Erasmo Roberson RN Unavailable Unavailable Alexandra Cota RN Unavailable Unavailable Alda Braswell Unavailable Unavailable Lucia Sharif IRRIGATION EQUIPMENT INSTALLER Unavailable Unavailab le Reason for Referral * (Routine) - Open Specialty Diagnoses / Procedures Referred By Contac t Referred To Contact Procedures Follow up with provider Juan Valencia MD [address] [place] [address] [place] [address] Phone: tel: fax: Referral ID Status Reason Start Date Expiration Date Visits Re quested Visits Authorized [id number] Open 02/19/2025 02/19/2026 1 1 * Radiology Services (Routine) - Open Specialty Diagnoses / Procedures Referred By Contac t Referred To Contact Diagnoses Hepatitis C virus infection without hepatic coma, unspecified chronicity History of multiple myeloma Procedures CT US Guided Needle Placement IR Perc Liver Biopsy Juan Valencia MD [address] [place] [address] Phone: tel: fax: [facility] [address] [place] [address] Phone: tel: Referral ID Status Reason Start Date Expiration Date Visits Re quested Visits Authorized [id number] Open 02/19/2025 02/19/2026 1 1 Reason for Visit * Auth/Cert (Routine) Specialty Diagnoses / Procedures Referred By Contac t Referred To Contact Diagnoses Chronic hepatitis C without hepatic coma (HCC) Transaminitis Chronic hepatitis C without hepatic coma (HCC) [B18.2] Transaminitis [R74.01] Procedures MS US GUIDED NEEDLE PLACEMENT BIOPSY LIVER (NEEDLE/PERCUTANEOUS) Referral ID Status Reason Start Date Expiration Date Visits Re quested Visits Authorized [id number] 1 1 Encounter Details Date Type Department Care Team (Latest Contact Info) Description 02/19/2025 11:37 AM CDT Hospital Encounter [facility] IVR [address] [place] [address] Juan Valencia MD [address] [place] [address] [facility] Radiology Social History Tobacco Use Types [...] Recorded Patient Health Questionnaire-2 Score 0 11/20/2024 [facility] Occupat ional Health - Occupational [...] any time in the past 12 m [facility], were you homeless or living in a fci (including now)? No 11/23/2024 Sex and Gender Information Value Date Recorded Sex Assigned at Not on file Legal Sex Male 11:44 AM EXHAUST MACHINE OPERATOR Gender Identity Not on file Sexual [...] Patient: Joselito Nguyen Attending: Callum Guerrero MD Food Processor: Seng Gaston MD Diagnosis/Indication: hx of hep [...] for the entire procedure. Callum Guerrero MD Machined Parts Quality Inspector Vascular & Interventional Radiology 02/20/2025 5:30 AM documented in this encounter Miscellaneous Notes * Clinical References AVS - Richie Alejandro RN - 02/19/2025 1:22 PM CDT Images from the original note were not included. [address] Liver Biopsy A liver biopsy is when [...] naproxen. Â· Medicines for heart conditions Â· Hgcf-hgs-gczpbrw medicines Â· All prescription medicines Â· Illegal [...] belly Last Reviewed Date: 2023 00:00:00 Â© 5007-0499 [employer]. All rights reserved. This information is not intended as a substitute for professional medical care. Always follow your healthcare professional's instructions. documented in this encounter Plan of Treatment Upcoming Encounters Date Type Department Care Team (Late st Contact Info) Description 04/06/2025 8:40 AM CDT Appointment [facility] CAT SCAN [address] [place] [address] Arya Rm MD [address] [place] [address] [address] [place] [address] 04/06/2025 9:15 AM CDT Office Visit [facility] - Neurosurgery [address] [place] [address], [place] [address] Arya Rm MD [address] [place] [address] [address] [place] [address] 05/28/2025 2:30 PM CDT Office Visit [facility] - Infectious Disease [address] [facility] [place] [address] Cristian Mcmillan MD [facility] [place] [phone] documented as of this encounter Procedures Procedure [...] evaluation, please review the evaluation forms in [facility]. For details on monitored clinical parameters during the intra-service sedation time, please review the procedure nurse documentation in [facility]. > Dictated by Seng Gaston MD (Defect Cutter) 02/19/2025 12:59 PM Callum Mondragon MD have [...] response to care. Intra-service sedation start time [id number] hours and end time was 1236 hours during which I was present. Total physician intra-service sedation time was 30 minutes. For details on pre moderate sedation and post moderate sedation patient evaluation, please review the evaluation forms in [facility]. For details on monitored clinical parameters during the intra-service sedation time, please review the procedure nurse documentation in [facility]. > Dictated by Seng Gaston MD (Defect Cutter) 02/19/2025 12:59 PM Callum Mondragon MD have personally reviewed and interpreted this examination/study. > Interpreting Provider: Callum Guerrero MD on 02/24/2025 5:33 PM Juan Valencia MD [address] ORDERABLES Final Result * PATHOLOGY TISSUE (02/19/2025 12:34 PM CDT) Case Report Surgical Pathology Report Case: [id number] Authorizing Provider: Juan Valencia MD Collected: 02/19/2025 12:34 PM Ordering Location: [facility] IVR Received: 02/19/2025 01:06 PM Pathologist: Sammi Escalante MD Specimen: Liver Needle Biopsy, liver bx 02/20/2025 3:50 PM CDT [facility] Final Diagnosis Liver, biopsy (A): - Chronic hepatitis with minimal-mild activity - Steatosis and lobular inflammation without ballooning - Cirrhosis, see comment 02/20/2025 3:50 PM CDT [facility] at 1550 CDT Microscopic [...] 8 (steatosis-1, inflammation-1, ballooning-0). 02/20/2025 3:50 PM [facility] Clinical History The patient is a 44-year-old man with history of hepatitis C infection and appearance of cirrhosis on diagnostic imaging. Operative procedure: Ultrasound-guided random core liver biopsy 02/20/2025 3:50 PM [facility] Gross Description The requisition and specimen(s) are identified with the patient's name, Joselito Nguyen. Received in formalin, specimen A , are two baldwin-pink needle cores, 1.7 and 1.0 cm, both 0.1 cm diameter, submitted in toto in cassette A1. IKD 02/20/2025 3:50 PM [facility] Pathologist Location at [facility] 02/[facility]2025 3:[facility] Disclaimer The performance characteristics of all immunohistochemical and indirect immunofluorescence stains (if any) cited in this report were determined by the Histopathology Laboratory of [facility]. Some of these tests were developed [...] the attending (teaching) pathologist. 02/20/2025 3:50 PM [facility] Collected By Balbir Rdz RN 3:50 PM [facility] Embedded Images 02/20/2025 3:50 PM [facility] Pathology/Cytolo gy NEEDLE BIOPSY OF LIVER / Unknown Collection / Unknown 02/19/2025 12:34 PM CDT 02/19/2025 1:06 PM CDT Comment:LIVER NEEDLE BIOPSY Juan Valencia MD LAB - PATHOLOGY/CYTOLOGY ORDER LISSETH Final Result [facility] [address] [place] [address], [facility] [phone] documented in this encounter Visit Diagnoses Diagnosis [...] documented as of this encounter Care Teams Metal Weather Stripper Relationship Specialty Start Date End Date Matthew Sorenson PA [address] [place] [address] PCP - General 02/02/22 Jose Luis Brooks MD [address] [place] [address] Linseed Oil Refiner/Oncologis t Hematology and Oncology 08/29/24 Abelardo Presley MD [address] [place] [address] Hematology and Oncology 08/29/24 03/04/25 Bo Francisco MD [address] [place] [phone] Hematology and Oncology 08/29/24 03/04/25 [place] [address] [place] [phone] Physician Hematology and Oncology 08/29/24 03/04/25 Katie Gutierrez, PharmD 08/29/24 03/04/25 Jaja Rayo, RN Registered Nurse 08/29/24 03/04/25 Abimbola Waters, LOCKSTITCH FRONT EDGE TAPE SEWER-TURRET PRESS OPERATOR [address] [facility] [place] [address] Nurse Practitioner Nurse Practitioner 08/29/24 03/04/25 Perri Dexter APRN-CNP [address] [place] [address] Nurse Practitioner Nurse Practitioner 08/29/24 03/04/25 Marilyn Bennett, RN Coordinator 08/29/24 Erasmo Roberson, RN Registered Nurse 08/29/24 03/04/25 Alexandra Cota, RN Registered Nurse 08/29/24 03/04/25 Alda Braswell 08/29/24 03/04/25 Lucia Sharif, IRRIGATION EQUIPMENT INSTALLER Patient Service Specialist 08/29/24 03/04/25 documented as of this encounter "
[2025-03-11 21:09] LABS: Basophils Absolute Auto 0.06 K/mm3 (0.00-0.10); Basophils Percent Auto 0.6 % (0.0-1.0); Eosinophils Absolute Auto 0.33 K/mm3 (0.02-0.50); Eosinophils Percent Auto 3.3 % (1.0-6.0); Hematocrit 43.5 % (40.0-54.0); Hemoglobin 13.9 g/dL (14.0-18.0); Immature Granulocyte Absolute 0.05 K/mm3 (0.00-0.00); Immature Granulocyte Percent A 0.5 % (0.0-0.0); Lymphocytes Absolute Auto 3.81 K/mm3 (1.10-4.50); Lymphocytes Percent Auto 37.8 % (18.0-42.0); Mean Corpuscular Hemoglobin 27.9 pg (27.0-31.0); Mean Corpuscular Volume 87.2 fL (78.0-102.0); Mean Platelet Volume 11.1 fl (8.7-11.0); Monocytes Absolute Auto 0.89 K/mm3 (0.10-0.90); Monocytes Percent Auto 8.8 % (2.0-11.0); Neutrophils Absolute Auto 4.94 K/mm3 (1.70-7.20); Platelet Count Result 212 K/mm3 (150-420); Red Blood Count 4.99 M/mm3 (4.70-6.10); Red Cell Distribution Width 13.9 % (11.6-14.4); White Blood Count 10.1 K/mm3 (4.8-10.8)
[2025-03-11 21:23] LABS: Lactic Acid Reflex 1.6 mmol/L (0.4-2.0)
[2025-03-11 21:28] LABS: Alanine Aminotransferase 21 U/L (6-50); Albumin Level 3.8 g/dL (3.5-5.1); Alkaline Phosphatase 97 U/L (38-126); Anion Gap 10 mmol/L (4-12); Aspartate Amino Transferase 24 U/L (17-59); Bilirubin,Total 0.4 mg/dL (0.2-1.3); Blood Urea Nitrogen 14 mg/dL (9-20); Calcium 8.7 mg/dL (8.4-10.2); Carbon Dioxide 21 mmol/L (22-30); Chloride 108 mmol/L (98-107); Estimated CRCL calculation 114 ml/min; Estimated Glomerular Filt Rate > 60; Glucose 140 mg/dL (65-110); Lipase 185 U/L (23-300); Osmolality Calculated 290 mOsm/kg (285-295); Potassium 3.8 mmol/L (3.4-5.0); Sodium 139 mmol/L (137-145); Total Protein 6.2 g/dL (6.3-8.2)
--- NOTE | 2025-03-11 21:45 | PC.NURSE ---
patient resting on stretcher, reports medication given for pain was not very effective. ERP notified. patient update provided. spouse at bedside. urine sent to lab.
[2025-03-11 21:50] LABS: Add Urine Microscopic? NO; Appearance Urine Clear (Clear); Bilirubin Urine Negative (Negative); Blood Urine Negative (Negative); Color Urine Light Yellow (Yellow); Glucose Urine UA 3+ (Negative); Ketones Urine Negative (Negative); Leukocyte Esterase Ur Negative LEU/UL (Negative); Nitrate Urine Negative (Negative); Protein Urine Negative (Negative); Urobilinogen Urine 0.2 mg/dL (0.2-1.0)
--- NOTE | 2025-03-11 22:33 | PC.NURSE ---
Dr. Paul at patient bedside at this time providing update to patient and his spouse including results of labs and imaging and plan of care.
[2025-03-11] MEDS: HYDROmorphone HCL INJ (*CRX) 2 MG/ML VIAL 0.5 MG IM (22:55)
[2025-03-11 22:58] VITALS: BP 138/86; PULSE 79; RESP 18; TEMP 36.7; O2SAT 97
--- NOTE | 2025-03-13 13:33 | PC.NURSE ---
Preliminary blood culture report; no growth to date.
== END 2025-03-11 23:05 | disposition home or self-care (01) ==
PROVIDERS: Emergency Provider Internal Medicine Critical Care Medicine; PCP Physician Assistant
DX: C90.00 Multiple myeloma not having achieved remission (principal); M54.42 Lumbago with sciatica, left side; E11.9 Type 2 diabetes mellitus without complications; F17.210 Nicotine dependence, cigarettes, uncomplicated; Z86.711 Personal history of pulmonary embolism
CPT/HCPCS: 36415; 72128; 72131; 80053; 81003; 83605; 83690; 85025; 87040; 96372; 99284; A9270; J1171

== ENCOUNTER 2025-04-24 14:50 | Outpatient (CLI) | payer OTHER, SELFPAY ==
[2025-04-24 15:14] LABS: Basophils Absolute Auto 0.12 K/mm3 (0.00-0.10); Basophils Percent Auto 1.3 % (0.0-1.0); Eosinophils Absolute Auto 0.73 K/mm3 (0.02-0.50); Eosinophils Percent Auto 8.2 % (1.0-6.0); Hematocrit 45.5 % (40.0-54.0); Hemoglobin 15.1 g/dL (14.0-18.0); Immature Granulocyte Absolute 0.03 K/mm3 (0.00-0.00); Immature Granulocyte Percent A 0.3 % (0.0-0.0); Mean Corpuscular HGB Conc 33.2 g/dL (32-36); Mean Corpuscular Hemoglobin 28.2 pg (27.0-31.0); Mean Platelet Volume 10.7 fl (8.7-11.0); Monocytes Absolute Auto 0.77 K/mm3 (0.10-0.90); Monocytes Percent Auto 8.6 % (2.0-11.0); Neutrophils Absolute Auto 3.97 K/mm3 (1.70-7.20); Neutrophils Percent Auto 44.6 % (50.0-70.0); Platelet Count Result 238 K/mm3 (150-420); Red Blood Count 5.35 M/mm3 (4.70-6.10); Red Cell Distribution Width 14.3 % (11.6-14.4); White Blood Count 8.9 K/mm3 (4.8-10.8)
[2025-04-24 15:34] LABS: Hemoglobin A1C 6.3 % (<5.7)
[2025-04-24 15:47] LABS: Alanine Aminotransferase 23 U/L (6-50); Albumin Level 4.2 g/dL (3.5-5.1); Alkaline Phosphatase 105 U/L (38-126); Anion Gap 7 mmol/L (4-12); Aspartate Amino Transferase 22 U/L (17-59); Bilirubin,Total 0.4 mg/dL (0.2-1.3); Blood Urea Nitrogen 15 mg/dL (9-20); Calcium 9.3 mg/dL (8.4-10.2); Carbon Dioxide 22 mmol/L (22-30); Chloride 110 mmol/L (98-107); Cholesterol 193 mg/dL (0-200); Estimated Glomerular Filt Rate > 60; Glucose 97 mg/dL (65-110); HDL Direct 32 mg/dL; LDL Cholesterol Calculated 117 mg/dL (<130); Osmolality Calculated 288 mOsm/kg (285-295); Potassium 4.2 mmol/L (3.4-5.0); Sodium 139 mmol/L (137-145); Total Protein 6.4 g/dL (6.3-8.2); Triglycerides 222 mg/dL (<150)
[2025-04-26 03:53] LABS: Immunoglobulin A 35 mg/dL (47-310); Immunoglobulin G 597 mg/dL (600-1640); Immunoglobulin M 14 mg/dL (50-300)
[2025-04-26 06:43] LABS: Protein, Total 6.4 g/dL (6.1-8.1)
[2025-04-27 12:42] LABS: Kappa\\Lambda Light Chains 1.47 (0.26-1.65); Lambda Light Chain 7.5 mg/L (5.7-26.3)
[2025-04-27 20:28] LABS: Immunofixation, Serum Normal pattern.
== END 2025-04-24 14:51 | disposition home or self-care (01) ==
LOC: CHSLAB 14:54
PROVIDERS: PCP Physician Assistant; Visit Provider Internal Medicine Hematology
DX: I10 Essential (primary) hypertension (principal); R53.82 Chronic fatigue, unspecified; E11.9 Type 2 diabetes mellitus without complications; C90.00 Multiple myeloma not having achieved remission
CPT/HCPCS: 36415; 80053; 80061; 82784; 83036; 83521; 84155; 84165; 84402; 84403; 84439; 84443; 85025; 86334

== ENCOUNTER 2025-05-27 18:27 | Emergency (ER) | payer OTHER, SELFPAY ==
--- NOTE | ~2025-05-27 | CT_ITS ---
EXAMINATION: CT lumbar spine wo con DATE: 05/27/2025 19:14 INDICATION: low back pain . TECHNIQUE: Computed tomography (CT) of the lumbar spine was performed without intravenous contrast. A utomated exposure control and iterative reconstruction technique were employed. The dose-length produ ct was 1080.07 mGy-cm. COMPARISON: 06/02/2024. FINDINGS: 5 nonrib-bearing lumbar-type vertebral bodies. Vertebroplasty cement at L3. Uncomplicated a ppearing posterior fusion hardware spanning L1-L5. Posterior element decompression at the inferior as pect of L2 and superior aspect of L3. 2 mm retrolisthesis at L3-4. Multilevel degenerative disc disea se, severe at L5-S1. Moderate facet arthropathy at all lumbar levels. Severe central canal stenosis a t L3. The canal is obscured in multiple levels due to metal artifact. Severe bilateral neural foramin al narrowing at L3-4 and L5-S1 secondary to degenerative changes. Mixed lytic and sclerotic area in t he posterior superior iliac spine on the left, likely hemangioma or prior bone harvest site. IMPRESSION: No acute osseous finding in the lumbar spine. Posterior fusion spanning L1-L5, with vertebroplasty cement at L3. No CT evidence of hardware related complication. Severe central canal stenosis at L3 secondary to degenerative change. Severe bilateral neural foramin al narrowing at L3-4 and L5-S1 secondary to degenerative changes. Reviewed, dictated and finalized at location K. IMPRESSION: No acute osseous finding in the lumbar spine. Posterior fusion spanning L1-L5, with vertebroplasty cement at L3. No CT eviden ce of hardware related complication. Severe central canal stenosis at L3 secondary to degenerative change. Severe bi lateral neural foraminal narrowing at L3-4 and L5-S1 secondary to degenerative changes.
--- NOTE | ~2025-05-27 | XR_ITS ---
EXAMINATION: XR chest 1V portable Exam Date/Time: 05/27/2025 18:53 CDT HISTORY: pleuritic chest pain Comparison: 08/31/2024. RESULT: Lines, tubes, and devices: None. Lungs and pleura: Clear. Cardiomediastinal silhouette: Stable. Other: No acute osseous or upper abdominal finding. IMPRESSION: No acute cardiopulmonary process. Reviewed, dictated and finalized at location K.
[2025-05-27 18:30] VITALS: BP 146/93; PULSE 71; RESP 20; TEMP 36.7; O2SAT 98
--- OUTSIDE RECORDS SUMMARY | 2025-05-27 18:31 | XMS_ITS | Clinical Summary ---
Author Organization [facility] Address [address] [place] [address] Care Team Providers Care Grievance Manager Name Role Phone Matthew Sorenson Primary Care Provider [phone] Jose Luis Brooks MD Unavailable [phone] Marilyn Bennett RN Unavailable Unavailable Source Comments [facility],non-owned Affiliates and Associated Physician Practices is amultiple site organization consisting of ambulatory clinics and hospital sitesin [place], [place], [place] and [place]. This disclosure is being madepursuant to the Care Everywhere program and may not contain all information available regarding this patient. Last updated 18.[facility] Allergies Active Allergy Reactions Criticality Noted Date Comments Morphine Rash Medium 11/23/2024 Vancomycin Rash Medium 10/26/2024 Red man's syndrome Medications * Be aware that medications may not be up to date on this document. Alwaysverify current medications with the patient. Blood Glucose Monitoring Suppl (Blood Glucose Monitor System) w/Device KITIndications: Hyperglycemia Use 1 Each as directed 1 Each 06/28/20 24 Active Blood Glucose Monitoring Suppl (OneTouch Verio) w/Device KITIndications: Hyperglycemia Use 1 Box 3 times daily with meals 1 kit 06/28/20 24 Active sennosides (Senokot) 8.6 MG tablet TAKE ONE TABLET BY MOUTH 2 TIMES A DAY FOR 10 DAYS 20 tablet 06/09/20 24 025 Active Blood Glucose Monitoring Suppl (OneTouch Verio Flex System) w/Device KITIndications: Hyperglycemia, unspecified USE DIRECTED 1 kit 06/28/20 24 025 Active Lancets (ONETOUCH DELICA PLUS 33G EXTRA FINE LANCET)Indicati ons:Hyperglycem ia, unspecified USE ONE LANCET 3 TIMES A DAY 100 Each 11 06/28/20 24 025 Active blood glucose test stripIndication s:Acute post-operative pain Use 1 (one) strip 3 times daily before meals Use one strip to check blood sugar before each meal. One touch verio strips 100 strip 12 07/23/20 24 Active Additional Information Patient taking differently: (No dose reported), Does not apply 3 TIMES DAILY BEFORE MEALS, Use one strip to check blood sugar before each meal. One touch verio strips, Reported on 02/26/2025 Continuous Glucose Workers Compensation Coordinator (Dexcom G7 Workers Compensation Coordinator) SONIA as directed Act khari Continuous Glucose Sensor (Dexcom G7 Sensor) MISC as directed 08/07/20 24 Active apixaban (Eliquis) 5 MG tablet Take 1 (one) tablet by mouth 2 times daily 60 tablet 3 10/01/20 24 Active insulin glargine (Lantus/Semglee ) 100 units/mL pen Inject 10 (ten) Units subcutaneously every 24 hours for 30 days 3 mL 2 10/01/20 24 Active Additional Information Patient taking differently: 20 UnitsSubcutaneous EVERY 24 HOURS, Reported on 02/26/2025 hydrOXYzine HCl (Atarax) 25 MG tabletIndicatio ns:Itching TAKE 1 (ONE) TABLET BY MOUTH 4 [...] DAY 90 tablet 1 11/05/19 25 Active camphor-menthol (Sarna) 0.5-0.5 % lotion Apply to affected area 3 times daily as needed for Itching 222 mL 1 11/10/19 25 Active Nutritional Supplements (Ensure High Protein) LIQDIndications :Ensure High Protein twice a day Take 2 cans by mouth 2 times daily Reasons: Ensure High Protein twice a day 11/24/19 25 Active cyclobenzaprine (Flexeril) 10 MG tablet Take 1 (one) [...] Active oxyCODONE, immediate release, (Roxicodone) 5 MG tabletIndicatio ns:Multiple myeloma not having achieved remission (HCC) Take [...] 60 days. 120 capsule 1 01/14/20 25 Active amLODIPine (Norvasc) 10 MG tablet Take 1 (one) tablet by mouth once daily Need to follow with primary care 30 tablet 3 01/14/20 25 Active prochlorperazin e (Compazine) 10 MG tabletIndicatio ns:Multiple myeloma not having achieved remission (HCC) Take 1 (one) tablet by mouth every 6 hours as needed for Nausea/Vomiting 30 tablet 6 01/14/20 25 Active ondansetron, disintegrating, (Zofran ODT) 8 MG tablet Take 1 (one) tablet by mouth every 8 hours Allow tablet to dissolve on the tongue 90 tablet 1 01/14/20 25 Active oxyCODONE CR 12hr (OxyCONTIN) 20 MG tabletIndicatio ns:Cancer associated pain Take 1 (one) tablet by mouth every 12 hours 60 tablet 01/15/20 25 Active mirtazapine (Remeron) 15 MG tablet TAKE 1 TABLET BY MOUTH EVERYDAY AT BEDTIME 90 tablet 1 01/16/20 25 Active doxycycline hyclate 100 MG tabletIndicatio ns:MRSA bacteremia,Acut e on chronic low back pain,Orthopedic hardware present Take 1 (one) tablet by mouth 2 times daily 56 tablet 5 01/20/20 25 025 Active Acetaminophen Extra Strength 500 MG TABS TAKE 2 TABLETS (1,000 MG TOTAL) BY MOUTH EVERY 6 HOURS NEEDED FOR PAIN 12/18/19 25 Active amoxicillin (Amoxil) 875 MG tablet Take [...] once daily Activ e TRUEplus 5-Bevel Pen [place] 31G X 6 MM [facility] USE TO INJECT INSULIN 3 TIMES DAILY 11/20/19 25 Active ondansetron (Zofran) 8 MG tablet Take 1 (one) tablet by mouth every 8 hours as needed Active doxycycline hyclate (Vibramycin) 100 MG capsule Take 1 (one) capsule by mouth 01/20/20 25 Active lenalidomide (Revlimid) 10 MG capsuleIndicati ons:Multiple myeloma, remission status unspecified (HCC) Take 1 (one) capsule by mouth once daily for 28 days 28 capsule 02/28/20 25 Active acyclovir (Zovirax) 400 MG tablet Take 1 (one) tablet by mouth 2 times daily 60 tablet 5 03/02/20 25 Active Active Problems Problem Noted Date Diagnosed Date [...] Encounters Date Type Department Care Team Description 05/04/2025 Refill [facility] [address] [place] [address] Perri Dexter, DAYNA-IT QUALITY ANALYST Refill Request 04/03/2025 Travel 03/26/2025 Refill [facility] [address] [place] [phone] Perri Dexter APRN-CNP Refill Request 03/24/2025 Refill [facility] [address] [place] [address] Jose Luis Brooks MD Refill Request 03/18/2025 Travel 03/02/2025 10:18 AM CDT - 03/02/2025 11:59 PM CDT Hospital Encounter [facility] [address] [place] [phone] Jose Luis Brooks MD Kunkle, Kelly, APRN-CNP Discharge Disposition: Home or Self Care 02/26/2025 2:30 PM CDT Office Visit [facility] - Infectious Disease [address] [place] [phone] Jose Luis Brooks MD Stack, Matthew A, [...] Routine health maintenance 02/26/2025 Travel 02/26/2025 Telephone [facility] - Infectious Disease [address] [place] [phone] Eliza Solano RN Pre Authorization from Last 3 Months Family History Medical [...] place to sleep or slept in a custodial (including now)? No 06/04/2024 Housing Stability Vital [...] the past [address] [facility], were you homeless or living in a custodial (including now)? 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 [place] [phone] Cristian Mcmillan MD [facility] [place] [phone] Health Maintenance Due Date Last Done Comments COLOGUARD (AGES 45-75) - COLON CA SCREENING 1978 COLON MONITORING 1978 COLONOSCOPY - COLON CA SCREENING 1978 CT COLONOGRAPHY - COLON CA SCREENING 1978 Colorectal Cancer Screening 1978 FIT - COLON CA SCREENING 1978 FLEX SIG - COLON CA SCREENING 1978 COVID-19 VACCINE (#1) 1983 DTAP/TDAP/TD VACCINES (1 - Tdap) 1997 HEPATITIS B VACCINE (1 of 3 - 19+ 3-dose series) 1997 PNEUMOCOCCAL VACCINE (1 of 2 - PCV) 1997 ZOSTER VACCINE (1 of 2) 1997 DIABETES-STATIN 2018 DIABETES RETINOPATHY SCREENING 06/28/2024 DIABETES-FOOT EXAM WITH MONOFILAMENT 06/28/2024 DIABETES-HGB A1C 09/27/2024 06/28/2024 DIABETES - URINE PROTEIN SCREENING 10/29/2024 06/28/2024 INFLUENZA VACCINE (#1) 2025 DIABETES-SERUM CREATININE 04/06/20262024, 02/12/2025, 02/02/2025, Additional history exists HIV SCREENING Completed 06/06/2024 [...] this topic Medical Devices Implanted Type Area Speed Belt Sander Device Identifier Shelf Expiration Date Model / Serial / Lot Kit Spnl 5.8mm Spinejack Implanted:Qty: 1 on 07/22/2024 by Arya Rm MD at [facility] N/A: Spine Lumbar Dottie Spine 10/28/2024 [id number] / / [id number] Kit Bone Cmnt Vertaplex Hv Autoplex Wo Implanted:Qty: 1 on 07/22/2024 by Arya Rm MD at [facility] N/A: Spine Lumbar Dottie Spine 05/29/2025 [id number] / / [id number] Port Implinfn Powerport Clrvu Argd Nya Implanted:Qty: 1 on 08/20/2024 by Vic Callahan MD at [facility] Right: Chest Wall Bard Peripheral Vascular 08/28/2025 [id number] / / [id number] Mixer Bone Cmnt Kyphon C20gm Ll Fit Implanted:Qty: 1 on 12/02/2024 by Arya Rm MD at [facility] N/A: Spine Lumbar Kyphon Inc [id number] / / Cmnt Bone Hv-R Kphx Mxr Grad Mrk Dspns Implanted:Qty: 1 on 12/02/2024 by Arya Rm MD at [facility] N/A: Spine Lumbar Kyphon Inc [id number] / / Graft Bone Grftn Dbm Plif 10x2.5cm Implanted:Qty: 1 on 12/02/2024 by Arya Rm MD at [facility] N/A: Spine Lumbar Osteotech Inc [id number] / / Ezekiel Spnl 500mm 5.5mm Cd Hzn Str Ti Ln Cp Implanted:Qty: 1 on 12/02/2024 by Arya Rm MD at [facility] N/A: Spine Lumbar Medtronic Inc [id number] / / Graft Bone Grftn Dbm Aspt 5x2.5cm Post Implanted:Qty: 1 on 12/02/2024 by Arya Rm MD at [facility] N/A: Spine Lumbar Medtronic Inc [id number] / / Screw Set Ti Spnl Brk Off Cd Hzn Nonster Implanted:Qty: 8 on 12/02/2024 by Arya Rm MD at [facility] N/A: Spine Lumbar Medtronic Inc [id number] / / Screw 7.5mm 55mm Ma Spne Solera Cd Hzn Implanted:Qty: 2 on 12/02/2024 by Arya Rm MD at [facility] N/A: Spine Lumbar Medtronic Inc [id number] / / Screw 7.5mm 50mm Ma Spne Solera Cd Hzn Implanted:Qty: 6 on 12/02/2024 by Arya Rm MD at [facility] Medtronic Inc [id number] / / Slnt Dura Duraseal Pg Trilysine Amine 5 Implanted:Qty: 1 on 12/02/2024 by Arya Rm MD at [facility] N/A: Spine Lumbar Integra Dimple DoughciLockbox Thang [id number] / / Explanted Type Area Speed Belt Sander Device Identifier Shelf Expiration Date Model / Serial / Lot Kit Osteocool Srg 10ga Bone Acc Explanted:Qty: 2 on 07/22/2024 by Arya Rm MD at [facility] N/A: Spine Lumbar Medtronic Inc [id number] / / [id number] Description:Access device, n ot an implant. No other options in system Probe 17ga 20mm Rf Eltx Osteocool 2mm Explanted:Qty: 1 on 07/22/2024 by Arya Rm MD at [facility] N/A: Spine Lumbar Medtronic Inc 03/26/2027 [id number] / / [id number] Description:Access device, n ot an implant. No other options in system Procedures Procedure Name Priority Date/Time Associated Diagnosis Comments COMPREHENSIVE METABOLIC PANEL STAT 02/12/2025 10:35 AM CDT Multiple myeloma not having achieved remission (HCC) HEPATITIS C GENOTYPE Routine 12/18/2024 2:53 PM BATTERY TEST ENGINEER Chronic hepatitis C without hepatic coma MICROALB/CREAT RATIO URINE RANDOM PANEL Routine 06/28/2024 6:31 AM CDT Hyperglycemia HEMOGLOBIN A1C STAT 06/28/2024 2:10 AM CDT Pre-op evaluation HIV-1 HIV-2 ANTIBODY + HIV P24 AG PANEL STAT 06/06/2024 11:59 AM CDT from Last 3 Months or Most Recently Relevant to Health Maintenance Results * (ABNORMAL) COMPREHENSIVE METABOLIC PANEL (02/12/2025 10:35 AM CDT) BUN 17 7 - 26 mg/dL 02/12/2025 11:13 AM CDT [facility] Creatinine 0.77 0.71 - 1.16 mg/dL 02/12/2025 11:13 AM CDT [facility] Sodium 142 136 - 145 mmol/L 02/12/2025 11:13 AM [facility] Potassium 4.3 3.5 - 4.5 mmol/L 02/12/2025 11:13 AM [facility] Chloride 107 98 - 107 mmol/L 02/12/2025 11:13 AM [facility] CO2 20(L) 22 - 29 mmol/L 02/12/2025 11:13 AM [facility] Glucose 150(H) 70 - 99 mg/dL 02/12/2025 11:13 AM [facility] Calcium 10.0 8.4 - 10.2 mg/dL 02/12/2025 11:13 AM [facility] Protein Total 8.2 6.0 - 8.3 g/dL 02/12/2025 11:13 AM [facility] Albumin 4.6 3.4 - 5.0 g/dL 02/12/2025 11:13 AM [facility] Bilirubin Total 0.3 0.2 - 1.2 mg/dL 02/12/2025 11:13 AM [facility] Alkaline Phosphatase 214(H) 40 - 150 U/L 02/12/2025 11:13 AM [facility] ALT 24 5 - 55 U/L 02/12/2025 11:13 AM [facility] AST 13 5 - 34 U/L 02/12/2025 11:13 AM [facility] Anion Gap 15 6 - 16 02/12/2025 11:13 AM [facility] BUN/Creatinine Ratio 22 7 - 23 02/12/2025 11:13 AM [facility] Osmolality Calculated 298(H) 275 - 295 mOsm/kg 02/12/2025 11:13 AM [facility] Albumin/Globulin Ratio 1.3 1.1 - 2.3 02/12/2025 11:13 AM [facility] eGFR by CKD-EPI >90 >=90 mL/min/1.7 3 m2 02/12/2025 11:13 AM [facility] Blood BLOOD SPECIMEN / Unknown Venipuncture / Unknown 02/12/2025 10:35 AM CDT 02/12/2025 10:48 AM CDT Perri Dexter [facility] LAB - CHEMISTRY ORDERABLES Final Result [facility] [address] [address], [facility] [[email or web address]] [phone] * HEPATITIS C GENOTYPE (12/18/2024 2:53 PM BATTERY TEST ENGINEER) Hepatitis C Genotype 3a 12/23/2024 7:28 AM BATTERY TEST ENGINEER [facility] [employer] ([facility]) Comment: INTERPRETIVE INFORMATION: Hepatitis C Genotyping Hepatitis C viral RNA is tested using reverse instruction librarian polymerase chain reaction (RT-PCR) to amplify a specific portion of the 5' untranslated region (5' UTR) of the viral genome. The amplified nucleic acid is sequenced bidirectionally using dye-terminator chemistry (Pressable). Sequencing data is compared to a database of characterized sequences. Isolates of hepatitis C virus are grouped into six major genotypes (1-6). These genotypes are subtyped according to sequence characteristics. Due to high conservation of the 5' untranslated region of the HCV genome, this test has limitations in differentiating subtype 1a from 1b. Therefore, these subtypes will be reported as 1a or 1b. In rare instances, type 6 virus may be misclassified as type 1. This test was developed and its performance characteristics determined by [facility]. It has not been cleared or approved by the U.S. Food and Drug Administration. This test was performed in a CLIA-certified laboratory and is intended for clinical purposes. Performed By: [facility] [address] [place] [address] Machining And Assembly Supervisor: Jake Clemons MD, PhD CLIA Number: [id number] Blood BLOOD SPECIMEN / Unknown Lab Venipuncture / Unknown 12/18/2024 2:53 PM BATTERY TEST ENGINEER 12/18/2024 3:25 PM BATTERY TEST ENGINEER Cristian Mcmillan MD LAB - CHEMISTRY ORDERABLES Fi nal Result [facility] [employer] [facility]) [address] [place] [address], [facility] [[email or web address]] * MICROALB/CREAT RATIO URINE RANDOM PANEL (06/28/2024 6:31 AM CDT) Albumin Random Urine <5.0 Not Established ug/mL 06/28/2024 9:49 PM [facility] Creatinine Urine 82.62 Not Established mg/dL 06/28/2024 9:49 PM [facility] Urine Albumin/Creati nine Ratio <6 <30 mg/g 06/28/2024 9:49 PM [facility] Albumin/Creati nine Ratio Urine See Comment <30 mg/g 06/28/2024 9:49 PM [facility] Comment:Unable to calculate the Urine Albumin/Creatinine Ratio due to one or more analyte concentration(s) being outside the measuring limits of the instrument. Urine URINE SPECIMEN OBTAINED BY CLEAN CATCH PROCEDURE / Unknown Collection / Unknown 06/28/2024 6:31 AM CDT 06/28/2024 7:54 PM CDT Robb Gomez MD LAB - URINE CHEMISTRY ORDERA BLES Final Result [facility] [address] [place] [address], [facility] [[email or web address]] [phone] * (ABNORMAL) HEMOGLOBIN A1C [IN-HOUSE TEST] (06/28/2024 2:10 AM CDT) Pathologist [facility] Hemoglobin A1c 9.1(H) <=5.6 % 06/28/2024 9:26 AM [facility] Estimated Average Glucose 214 mg/dL 06/28/2024 9:26 AM [facility] Comment: HbA1c Interpretation: Normal : < 5.7% Pre-diabetes: 5.7-6.4% Diabetes: Equal to or greater than 6.5% Test results diagnostic of diabetes should be repeated for confirmation. Treatment target values recommended by ADA and other clinical organizations should be used to evaluate metabolic control in patients. Reference: [place] [employer], Standards of Care in Diabetes -2020 In patients 70 years and older consider HbA1c target range of 7.0-7.5% (Reference: Jona Epstein et al. JAMDA. 2012) The Sebia assay for the measurement of HbA1c is a National Glycohemoglobin Standardization Program (NGSP) certified method. Blood BLOOD SPECIMEN WITH EDTA / Unknown Lab Venipuncture / Unknown 06/28/2024 2:10 AM CDT 06/28/2024 2:21 AM CDT Hayleyoctavio Lopez ELECTRICIAN SUPERVISOR-IT QUALITY ANALYST LAB - CHEMISTRY ORDER LISSETH Final Result Performing Organization Address City/[facility]/ZIP Co de Phone Number [address] [address], [facility] [[email or web address]] [phone] * HIV-1 HIV-2 ANTIBODY + HIV P24 AG PANEL (06/06/2024 11:59 AM CDT) HIV Antigen/Antibod y 1 & 2 Non-reacti ve Non-react khari 06/06/2024 12:58 PM CDT [facility] Comment:No Laboratory eviden ce of HIV infection. Blood BLOOD SPECIMEN / Unknown Lab Venipuncture / Unknown 06/06/2024 11:59 AM CDT 06/06/2024 12:07 PM CDT Gina Burt MD LAB - CHEMISTRY ORDERABLES Final Result Performing Organization Address [facility] Co de Phone Number [address] [address], [facility] [[email or web address]] [phone] from Last 3 Months or Most Recently Relevant to Health Maintenance Additional Health Concerns Infection Onset Date Last Indicated 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 [facility] Directives Documents on File Type Date Recorded Patient Company Driver Expl anation Adv Directive/Living Will/POA 08/13/2024 1:30 PM RAD/ONC Adv Directive/Living Will/POA 08/12/2024 1:00 PM * Full Code (Latest Code Status on File) Date Activated Date Inactivated Comments 11/23/2024 1:32 PM 12/10/2024 6:20 PM * Full Code Date Activated Date Inactivated Comments 11/23/2024 12:19 PM 11/23/2024 12:19 PM * Full Code Date Activated Date Inactivated Comments 10/24/2024 2:09 PM 11/07/2024 8:24 PM * Full Code Date Activated Date Inactivated Comments 08/31/2024 10:06 PM 10/01/2024 2:14 PM * Full Code Date Activated Date Inactivated Comments 07/23/2024 5:19 AM 07/26/2024 2:22 PM Care Teams Grievance Manager Relationship Specialty Start Date End Date Matthew Sorenson PA [address] [place] [address] PCP - General 02/02/22 Jose Luis Brooks MD [address] [place] [address] Money Order Clerk/Oncologist Hematology and Oncology 08/29/24 Marilyn Bennett, RN Coordinator 08/29/24
--- OUTSIDE RECORDS SUMMARY | 2025-05-27 18:31 | XMS_ITS | Encounter Summary ---
Author Organization [facility] Address [address] [place] [address] Care Team Providers Care Welder Plastic Name Role Phone Matthew Sorenson Primary Care Provider [phone] Jose Luis Brooks MD Unavailable [phone] Abelardo Presley MD Unavailable [phone] Bo Francisco MD Unavailable [phone] Angie Rogers MD Unavailable Katie GutierrezD Unavailable Unavaila Jaja Casillas RN Unavailable Unavailable Abimbola Waters PERSONNEL COORDINATOR-ELECTROLYSIST Unavailable Perri Dexter PERSONNEL COORDINATOR-ELECTROLYSIST Unavailable [phone] Marilyn Bennett RN Unavailable Unavailable Erasmo Roberson RN Unavailable Unavailable Alexandra Cota RN Unavailable Unavailable Alda Braswell Unavailable Unavailable Lucia Sharif LCSW Unavailable Unavailab le Reason for Visit * Reason Onset Date Comments MEDICATION REFILL 10/20/2024 Encounter Details Date Type Department Care Team (Late st Contact Info) Description 10/20/2024 Refill Luigi LOUISE [address] [place] [address] Gina Denton MD [address] [place] [address] MEDICATION REFILL Social History Tobacco Use Types Packs/Day Years Used Date Smoking Tobacco: Every Day Cigarettes 1.5 33.8 Started: 08/20/1991 Smokeless Tobacco: Never Alcohol Use [...] Recorded Patient Health Questionnaire-2 Score 1 08/12/2024 [facility] - [...] place to sleep or slept in a longterm (including now)? No 06/04/2024 Housing Stability Vital [...] were you homeless or living in a longterm (including now)? No 10/24/2024 Sex and Gender Information Value Date Recorded Sex Assigned at Not on file Legal Sex Male 11:44 AM [employer] Gender Identity Not on file Sexual Orientation [...] Description 05/28/2025 2:30 PM CDT Office Visit [facility] [address] [place] [address], [facility] [place] [address] Cristian Mcmillan MD [address] [place] [phone] documented as of this encounter Visit Diagnoses Not on filedocumented in this encounter Additional Health Concerns Infection Onset Date Last Indicated Resolved Time 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 CDIFF Under Investigation 01/13/2025 01/13/2025 7:19 PM CDT COVID-19 Under Investigation 01/13/2025 01/13/2025 01/13/2025 4:01 PM CDT COVID-19 Under Investigation 02/12/2025 02/12/2025 02/12/2025 4:07 PM CDT documented as of this encounter Care Teams Wel[employer] Pl[employer] Relationship Specialty Start Date End Date Matthew Sorenson PA [address] [place] [address] PCP - General 02/02/22 Jose Luis Brooks MD [address] [place] [phone] [facility] t Hematology and Oncology 08/29/24 Abelardo Presley MD [address] [place] [phone] Hematology and Oncology 08/29/24 03/04/25 Bo Francisco MD [address] [place] [phone] Hematology and Oncology 08/29/24 03/04/25 Angie Rogers MD [address] [place] [phone] Physician Hematology and Oncology 08/29/24 03/04/25 Katie Gutierrez, PharmD 08/29/24 03/04/25 Jaja Rayo, RN Registered Nurse 08/29/24 03/04/25 Abimbola Waters, DAYNA-ELECTROLYSIST [address] [place] [address] Nurse Practitioner Nurse Practitioner 08/29/24 03/04/25 Perri Dexter APRN-ELECTROLYSIST [address] [place] [phone] Nurse Practitioner Nurse Practitioner 08/29/24 03/04/25 Marilyn Bennett, RN Coordinator 08/29/24 Erasmo Roberson, RN Registered Nurse 08/29/24 03/04/25 Alexandra Cota, RN Registered Nurse 08/29/24 03/04/25 Alda Braswell 08/29/24 03/04/25 Lucia Sharif LCSW Filler Room Attendant 08/29/24 03/04/25 documented as of this encounter
--- OUTSIDE RECORDS SUMMARY | 2025-05-27 18:31 | XMS_ITS | Referral Summary ---
Author Organization [facility] Address [address] [place] [address] Care Team Providers Care Global Compensation Analyst Name Role Phone Matthew Sorenson Primary Care Provider [phone] Matthew Sorenson Unavailable [phone] Encounters Date Type Department Care Team Description 04/06/2025 Telephone [facility] Bone Marrow Transplant [address] [place] [phone] Agnes Hawkins RN 04/06/2025 7:45 AM CDT Lab [facility] - Lab Collection [address] [place] [address] Multiple myeloma not having achieved remission (HCC) 04/06/2025 8:00 AM CDT Lab [facility] Oncology Lab [address] [place] [phone] 04/06/2025 9:00 AM CDT Office Visit [facility] Bone Marrow Transplant [address] [place] [address] [phone] David Santiago MD Multiple myeloma, remission status unspecified (HCC) 03/25/2025 Orders Only [facility] Bone Marrow Transplant [address] [place] [phone] David Santiago MD Multiple myeloma not having achieved remission (HCC) (Primary Dx) from Last 3 Months Allergies Active Allergy Reactions Criticality Noted Date Comments Morphine Itching,Rash Medium 11/23/2024 Vancomycin Rash,Redness Medium 10/26/2024 Red man's syndrome Medications ketorolac (TORADOL) 10 mg tablet Take 1 tablet (10 mg total) by mouth 3 (three) times a day as needed for pain Take with food. 15 tablet 2 Active ibuprofen (ADVIL,MOTRIN) 600 mg tabletIndicati ons:Pain Take 1 tablet (600 mg total) by mouth every 6 (six) hours as needed for pain 30 tablet 3 Active acyclovir (ZOVIRAX) 400 mg tablet TAKE 1 (ONE) TABLET BY MOUTH 2 TIMES DAILY 5 Active amLODIPine (NORVASC) 10 mg tablet TAKE 1 (ONE) TABLET BY MOUTH ONCE DAILY NEED TO FOLLOW WITH PRIMARY CARE 5 Active Eliquis 5 mg tablet TAKE 1 (ONE) TABLET BY MOUTH 2 TIMES DAILY 4 Active baclofen (LIORESAL) 5 mg tablet Take 1 tablet (5 mg total) by mouth 3 (three) times a day Active buPROPion SR (WELLBUTRIN SR) 150 mg 12 hr tablet Take 1 tablet twice a day by oral route for 90 days. 2 Active carvediloL (COREG) 12.5 mg tablet TAKE 1 TABLET TWICE A DAY BY ORAL ROUTE FOR 90 DAYS. 5 Active cyclobenzaprin e (FLEXERIL) 10 mg tablet Take by mouth 3 (three) times a day as needed Active Jardiance 25 mg tablet Take 1 tablet (25 mg total) by mouth daily 5 Active famotidine (PEPCID) 40 mg tablet Take 1 tablet (40 mg total) by mouth daily 5 Active fexofenadine (ROMAN) 180 mg tablet Take 1 tablet (180 mg total) by mouth daily Active gabapentin (NEURONTIN) 300 mg capsule PLEASE SEE ATTACHED FOR DETAILED DIRECTIONS 5 Active NovoLOG 100 unit/mL (3 mL) pen for injection Inject 5 Units under the skin 5 Active LANTUS 100 unit/mL (3 mL) pen for injection INJECT 10 UNITS SUBCUTANEOUSLY DAILY 4 Active insulin glargine 100 unit/mL (3 mL) pen for injection INJECT 10 UNITS INTO THE SKIN ONCE DAILY Active losartan (COZAAR) 100 mg tablet Take 1 tablet (100 mg total) by mouth daily 5 Active methocarbamoL (ROBAXIN) 500 mg tablet TAKE 1.5 (ONE AND ONE-HALF) TABLETS BY MOUTH 3 TIMES DAILY NEEDED FOR MUSCLE SPASMS Active mirtazapine (REMERON) 15 mg tablet Take 1 tablet (15 mg total) by mouth nightly 5 Active OxyCONTIN 20 mg 12 hr abuse-deterren t tablet Take 1 tablet (20 mg total) by mouth every 12 (twelve) hours 5 Active oxyCODONE (ROXICODONE) 20 mg tablet Take 1 tablet (20 mg total) by mouth every 12 (twelve) hours 5 Active oxyCODONE-acet aminophen (PERCOCET) 5-325 mg per tablet Take by mouth every 6 (six) hours as needed Active sertraline (ZOLOFT) 50 mg tablet Take 1 tablet (50 mg total) by mouth daily 5 Active traMADoL (ULTRAM) 50 mg tablet Active verapamil SR (CALAN SR) 120 mg CR tablet TAKE 1 (ONE) TABLET BY MOUTH 2 TIMES DAILY Active SUMAtriptan (IMITREX) 50 mg tablet TAKE 1 TABLET BY MOUTH AT ONSET, MAY REPEAT 1 TABLET IN 2 HOURS IF NEEDED. MAX 2 TABS IN 24 HOURS. Active senna (SENOKOT) 8.6 mg tablet TAKE ONE TABLET BY MOUTH 2 TIMES A DAY FOR 10 DAYS 4 025 Active prochlorperazi ne (COMPAZINE) 10 mg tablet Take 1 tablet (10 mg total) by mouth every 6 (six) hours as needed 5 Active ondansetron (ZOFRAN) 8 mg tablet Take 1 tablet (8 mg total) by mouth Active lidocaine (ASPERCREME) 4 % adhesive patch,medicate d Place 1 patch on the skin daily 4 Active hydrOXYzine (ATARAX) 25 mg tablet TAKE 1 (ONE) TABLET BY MOUTH 4 TIMES DAILY NEEDED FOR ITCHING 4 Active Dexcom G7 Sensor device as directed 5 Active doxycycline 100 mg capsule Take 1 tablet/capsule (100 mg total) by mouth 2 (two) times a day 5 025 Active docusate sodium (COLACE) 100 mg capsule Take 1 capsule (100 mg total) by mouth 2 (two) times a day Active hydrOXYzine (ATARAX) 25 mg tablet Take 1 tablet (25 mg total) by mouth 3 (three) times a day as needed for itching Active Active Problems Problem Noted Date Diagnosed Date Hepatic cirrhosis due to chronic hepatitis C inf ection 02/27/2025 Acute osteomyelitis of lumbar spine 11/20/2024 History of illicit drug use 10/14/2024 MRSA bacteremia 09/24/2024 Overview (03/27/2025): - Previously treated with Ceftaroline & Dapto [...] stopped given persistent bacteremia, S/P Dapto (10/27-10/29). Multiple myeloma not having achieved remission 1 Acute back pain 07/23/2024 Type 2 diabetes mellitus wit hout complication, without long-term current use of insulin 06/28/2024 Hypertension 06/03/2024 Social History Tobacco Use Types Packs/Day Years Used Date Smoking Tobacco: Every Day Cigarettes Smokeless Tobacco: Never Tobacco Cessation:Ready to Q uit: Not Asked; Counseling Given: Not Answered Personal Safety Answer Date Recorded Have you ever been in or are you currently in a harmful physical or emotional relationship or is someone making you feel afraid or unsafe? 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 Gender Identity Not on file Sexual Orientation Not on file Last Filed Vital Signs Vital Sign Reading Time Taken Comments Blood Pressure 112/81 04/06/2025 8:19 AM CDT Pulse 69 04/06/2025 8:19 AM CDT Temperature 37.1 C (98.7 F) 04/06/2025 8:19 AM CDT Respiratory Rate 16 04/06/2025 8:19 AM CDT Oxygen Saturation 98% 04/06/2025 8:19 AM CDT Inhaled Oxygen Concentration - - Weight 112.5 kg (248 lb) 04/06/2025 8:19 AM CDT Height 181.5 cm (5' 11.46) 04/06/2025 8:19 AM C DT Body Mass Index 34.15 04/06/2025 8:19 AM CDT Plan of Treatment Not on file Procedures Procedure Name Priority Date/Time Associated Diagnosis Comments MANUAL DIFFERENTIAL STAT 04/06/2025 8 :04 AM CDT Multiple myeloma not having achieved remission (HCC) CBC WITH AUTO DIFFERENTIAL STAT 04/06/2025 8:04 AM CDT Multiple myeloma not having achieved remission (HCC) IMMUNOGLOBULIN FREE LIGHT CHAINS STAT 04/06/2025 8:04 AM CDT Multiple myeloma not having achieved remission (HCC) PROTEIN ELECTROPHORESIS, WITH REFLEX, SERUM STAT 04/06/2025 8:04 AM CDT Multiple myeloma not having achieved remission (HCC) EGFR STAT 04/06/2025 7:04 AM CDT Multiple myeloma not having achieved remission (HCC) BETA 2 MICROGLOBULIN SERUM STAT 04/06/2025 7:04 AM CDT Multiple myeloma not having achieved remission (HCC) COMPREHENSIVE METABOLIC PANEL STAT 04/06/2025 7:04 AM CDT Multiple myeloma not having achieved remission (HCC) IGA STAT 04/06/2025 7:04 AM CDT Multiple myeloma not having achieved remission (HCC) IGG STAT 04/06/2025 7:04 AM CDT Multiple myeloma not having achieved remission (HCC) IGM STAT 04/06/2025 7:04 AM CDT Multiple myeloma not having achieved remission (HCC) LACTATE DEHYDROGENASE STAT 04/06/2025 7:04 AM CDT Multiple myeloma not having achieved remission (HCC) from Last 3 Months Results * Immunoglobulin free light chains (04/06/2025 8:04 AM CDT) [place]/Lambda ratio BJ 1.33 0.26 - 1.65 Comment: Interpretive Data The Binding Site FreeLite assay procedure was used. Results from different manufacturers or methods may not be comparable. Serial testing should be performed using the same methods and instrumentation. Current Interpretive Data was last revised on 2023. [place] free light chain [facility] 1.45 0.33 - 1.94 mg/dL USMAN [facility] Comment: Interpretive Data The Binding Site FreeLite assay procedure was used. Results from different manufacturers or methods may not be comparable. Serial testing should be performed using the same methods and instrumentation. Current Interpretive Data was last revised on 2023. Lambda free light chain [facility] 1.09 0.57 - 2.63 mg/dL [facility] Comment: Interpretive Data The Binding Site FreeLite assay procedure was used. Results from different manufacturers or methods may not be comparable. Serial testing should be performed using the same methods and instrumentation. Current Interpretive Data was last revised on 2023. Blood 04/06/2025 8:04 AM CDT 04/06/2025 9:12 AM CDT us David Santiago MD LAB BLOOD ORDERABLES Final Resul t [facility] [place] [address] * (ABNORMAL) CBC with auto differential (04/06/2025 8:04 AM CDT) WBC 7.11 3.80 - 9.90 K/cumm Comment:Testing performed by : [facility], [address] [place] [address] Hgb 16.0 13.0 - 17.5 g/dL CERNER BJ Comment:Testing performed by : [facility], [address] [place], [place] [phone] Hct 47.8 38.9 - 50.3 % CERNER BJ Comment:Testing performed by : [facility], [address] [place], [place] [phone] Plt 257 150 - 400 K/cumm CERNER BJ Comment:Testing performed by : [facility], [address] [place] [address] MPV 9.1 6.8 - 10.4 fL CERNER BJ Comment:Testing performed by : [facility], [address] [place], [place] [phone] RBC 5.72 4.30 - 5.80 M/cumm CERNER BJ Comment:Testing performed by : [facility], [address] [place], [place] [phone] MCV 83.6 81.3 - 96.4 fL CERNER BJ Comment:Testing performed by : [facility], [address] [place] [address] MCH 28.0 27.1 - 33.3 pg CERNER BJ Comment:Testing performed by : [facility], [address] [place] [address] MCHC 33.5 32.3 - 35.7 g/dL CERNER BJ Comment:Testing performed by : [facility], [address] [place] [address] RDW CV 15.1(H) 11.1 - 14.9 % CERNER BJ Comment:Testing performed by : [facility], [address] [place] [address] NRBC abs 0.00 0.00 - 0.01 K/cumm CERNER BJ Comment:Testing performed by : [facility], [address] [place] [address] Blood 04/06/2025 8:04 AM CDT 04/06/2025 8:09 AM CDT us David Santiago MD LAB BLOOD ORDERABLES Edited Resu lt - Final USMAN PHILLIPS [facility] [place] [address] * (ABNORMAL) Manual Differential (04/06/2025 8:04 AM CDT) Cells Counted 200 Comment:Testing performed by : [facility], [address] [place] [phone] Neutrophil abs 2.84 1.50 - 6.50 K/cumm USMAN PHILLIPS Comment:Testing performed by : [facility], [address] [place] [phone] Lymphocyte abs 2.56 0.80 - 3.30 K/cumm USMAN PHILLIPS Comment:Testing performed by : [facility], [address] [place] [phone] Monocyte abs 0.71 0.20 - 0.80 K/cumm USMAN PHILLIPS Comment:Testing performed by : [facility], [address] [place] [phone] Eosinophil abs 0.50 0.00 - 0.50 K/cumm USMAN PHILLIPS Comment:Testing performed by : [facility], [address] [place] [phone] Basophil abs 0.21(H) 0.00 - 0.10 K/cumm USMAN PHILLIPS Comment:Testing performed by : [facility], [address] [place] [phone] Neutrophil pct 40.0 % CERDOMINIQUE PHILLIPS Comment: Interpretive Data Percent cell count reference ranges are not reported, since discordance with absolute values may lead to misinterpretation of CBC data. Current Interpretive Data was last revised on 2018. Testing performed by: [facility], [address] [place] [phone] Lymphocyte pct 36.0 % USMAN PHILLIPS Comment: Interpretive Data Percent cell count reference ranges are not reported, since discordance with absolute values may lead to misinterpretation of CBC data. Current Interpretive Data was last revised on 2018. Testing performed by: [facility], [address] [place] [phone] Monocyte pct 10.0 % [facility] Comment: Interpretive Data Percent cell count reference ranges are not reported, since discordance with absolute values may lead to misinterpretation of CBC data. Current Interpretive Data was last revised on 2018. Testing performed by: [facility], [address] [place] [address] Eosinophil pct 7.0 % C[facility] Comment: Interpretive Data Percent cell count reference ranges are not reported, since discordance with absolute values may lead to misinterpretation of CBC data. Current Interpretive Data was last revised on 2018. Testing performed by: [facility], [address] [place] [phone] Basophil pct 3.0 % [facility] Comment: Interpretive Data Percent cell count reference ranges are not reported, since discordance with absolute values may lead to misinterpretation of CBC data. Current Interpretive Data was last revised on 2018. Testing performed by: [facility], [address] [place] [phone] Myelocyte pct 1.0(H) 0.0 - 0.0 % [facility] Comment:Testing performed by : [facility], [address] [place] [phone] Variant lymph pct 5.0(H) 0.0 - 0.0 % C[facility]ER [facility] Comment:Testing performed by : [facility], [address] [place] [phone] RBC morphology Normal [facility] Comment:Testing performed by : [facility], [address] [place] [phone] Platelet estimate Adequate [facility] Comment:Testing performed by : [facility], [address] [place] [phone] Blood 04/06/2025 8:04 AM CDT 04/06/2025 8:09 AM CDT us David Santiago MD LAB BLOOD ORDERABLES Final Resul t Performing Organization Address [facility] de Phone Number [facility] Department [place] [address] * Protein electrophoresis with reflex, serum with interpretation (04/06/2025 8:04 AM CDT) Protein, sr 6.8 6.2 - 8.2 g/dL Albumin 4.3 3.2 - 5.0 g/dL [facility] Alpha-1 globulin 0.3 0.2 - 0.4 g/dL [facility] Alpha-2 globulin 1.0 0.5 - 1.0 g/dL [facility] Beta-1 globulin 0.4 0.3 - 0.6 g/dL [facility] Beta-2 globulin 0.3 0.2 - 0.6 g/dL [facility] Gamma globulin 0.5 0.5 - 1.7 g/dL [facility] SPEP interp Please see comment [facility] Comment: No apparent monoclonal peak Reviewed and signed by Jonatan Astorga MD, PhD 04/07/2025 Blood 04/06/2025 8:04 AM CDT 04/06/2025 9:12 AM CDT us David Santiago MD LAB BLOOD ORDERABLES Final Resul t Performing Organization Address [facility] de Phone Number [facility] [place] [address] * eGFR (04/06/2025 7:04 AM CDT) eGFR >90 >=60 mL/min/1. 73 m2 Comment: Interpretive Data Reference Interval Normal >/= [...] Current interpretive data was last reviewed 2021. Blood 04/06/2025 7:04 AM CDT 04/06/2025 8:10 AM CDT David Santiago MD LAB BLOOD ORDERABLES Final Resul t Performing Organization Address City/[facility] Co de Phone Number [facility] [place] [employer] [place] [address] * Lactate dehydrogenase (LD) (04/06/2025 7:04 AM CDT) Lactate dehydrogenase (LDH) 142 100 - 250 Units/L Blood 04/06/2025 7:04 AM CDT 04/06/2025 8:10 AM CDT David Santiago MD LAB BLOOD ORDERABLES Final Resul t Performing Organization Address [facility] de Phone Number [facility] Department [place] [address] * (ABNORMAL) IgA (04/06/2025 7:04 AM CDT) Immunoglobulin A <50(L) 70 - 400 mg/dL Blood 04/06/2025 7:04 AM CDT 04/06/2025 8:31 AM CDT David Santiago MD LAB BLOOD ORDERABLES Final Resul t Performing Organization Address [facility] de Phone Number [facility] Department [place] [address] * (ABNORMAL) IgM (04/06/2025 7:04 AM CDT) Immunoglobulin M <25(L) 40 - 230 mg/dL Blood 04/06/2025 7:04 AM CDT 04/06/2025 8:31 AM CDT us David Santiago MD LAB BLOOD ORDERABLES Final Resul t Performing Organization Address City/[facility] de Phone Number [facility] [place] [employer] [place] [address] * (ABNORMAL) IgG (04/06/2025 7:04 AM CDT) Immunoglobulin G 600(L) 700 - 1,600 mg/dL Blood 04/06/2025 7:04 AM CDT 04/06/2025 8:31 AM CDT us David Santiago MD LAB BLOOD ORDERABLES Final Resul t Performing Organization Address [facility] [place] [address] * (ABNORMAL) Beta 2 microglobulin, serum (04/06/2025 7:04 AM CDT) Pathologist [facility] Beta 2 Microglobulin, Serum 2.60(H) 1.00 - 2.50 mg/L Comment: Interpretive Data The [place]um Beta-2 microglobulin assay procedure was used. Results from different manufacturers or methods may not be comparable. Serial testing should be performed using the same method. Blood 04/06/2025 7:04 AM CDT 04/06/2025 8:31 AM CDT us David Sanitago MD LAB BLOOD ORDERABLES Final Resul t Performing Organization Address [facility] de Phone Number [facility] [place] [address] * (ABNORMAL) Comprehensive metabolic panel (04/06/2025 7:04 AM CDT) Sodium 140 135 - 145 mmol/L Potassium, pl 3.9 3.3 - 4.9 mmol/L [facility] Chloride 106 97 - 110 mmol/L [facility] CO2 23 22 - 32 mmol/L [facility] Anion gap 11 2 - 15 mmol/L [facility] BUN 15 6 - 25 mg/dL [facility] Creatinine 0.81 0.80 - 1.30 mg/dL [facility] Glucose 169 70 - 199 mg/dL [facility] Comment: Interpretive Data Fasting glucose >/= 126 [...] Current interpretive data was last revised 2022. Calcium 9.6 8.5 - 10.3 mg/dL [facility] Bilirubin, total 0.2 0.1 - 1.2 mg/dL [facility] Protein, pl 7.1 6.5 - 8.5 g/dL [facility] Albumin 4.4 3.5 - 5.0 g/dL [facility] Alk phos 199(H) 40 - 130 Units/L [facility] ALT 36 7 - 55 Units/L [facility] AST 19 10 - 50 Units/L [facility] Blood 04/06/2025 7:04 AM CDT 04/06/2025 8:10 AM CDT us David Santiago MD LAB BLOOD ORDERABLES Final Resul t [facility] [place] [address] from Last 3 Months Insurance [facility] Care Teams Global Compensation Analyst Relationship Specialty Start Date End Date Matthew Sorenson PA [address] [place] [address] PCP - General Family Practice 05/04/23 Matthew Sorenson PA [address] [place] [address] Family Practice 09/12/22
--- OUTSIDE RECORDS SUMMARY | 2025-05-27 18:31 | XMS_ITS | Clinical Summary ---
Author Organization [facility] Address [address] [address] Phone Care Team Providers Care Ammunition Officer Name Role Phone Imanquentin Matthew Bebe RAWLS Primary Care Provider [phone] Social History Tobacco Use Types Packs/Day Years Used Date Smoking Tobacco: Never Assessed Sex and Gender Information Value Date Recorded Sex Assigned at Not on file Legal Sex Male 9:21 PM CDT Gender Identity Not on file Sexual Orientation Not on file Plan of Treatment Upcoming Encounters Date Type Department Care Team (Late st Contact Info) Description 06/16/2025 7:30 AM CDT [facility] [address] [place] [phone] Kenneth Wayne MD [address] [address] 06/16/2025 7:30 AM CDT - 06/16/2025 8:00 AM CDT [facility] [address] [place] [phone] Kenneth Wayne MD [address] [address] COLONOSCOPY Scheduled Procedures Name Priority Associated Diagnoses Date/Ti me COLONOSCOPY SCREENING 06/16/2025 7:30 AM CDT Health Maintenance Due Date Last Done Comments TdaP Immunization 1978 Hepatitis B Immunization (1 of 3 - 19+ 3-dose series) 1997 Cologuard 2023 Colonoscopy 2023 Colorectal Cancer Screening 2023 Immunochemical Fecal Occult Blood 2023 SARS-COV-2 Immunization ( season) 2024 Influenza Immunization (#1) 2025 Respiratory Syncytial Virus (RSV) Immunization (Adult) (1 - 1-dose 75+ series) 2053 Hepatitis C Virus (HCV) Screening Discontinued 024 Human Papillomavirus (HPV) Immunization Aged Out No longer eligible b ased on patient's age to complete this topic Meningococcal Immunization (ACWY) Aged Out No longer eligible based on patient's age to complete this topic Pneumococcal Immunization Combined Aged Out No longer eligible based on patient's age to complete this topic Rotavirus Immunization Aged Out No lo nger eligible based on patient's age to complete this topic Insurance MEDICAID [employer] Care Teams Ammunition Officer Relationship Specialty Start Date End Date Matthew Sorenson PAC [address] [place] [address] PCP - General Physician Principal Mechanical Engineer 04/27/25
--- OUTSIDE RECORDS SUMMARY | 2025-05-27 18:31 | XMS_ITS | Clinical Summary ---
Author Organization [facility] Address [facility] [place] [address] Care Team Providers Care Over The Road Driver Name Role Phone Matthew Sorenson Primary Care Provider [phone] Allergies Active Allergy Reactions Criticality Noted Date Comments Morphine Itching 12/17/2024 Vancomycin Redness 12/17/2024 Social History Tobacco Use Types Packs/Day Years Used Date Smoking Tobacco: Never Smokeless Tobacco: Never Tobacco Cessation:Counseling Given: Not Answered Alcohol Use Standard Drinks/Week Comments Not Currently 0 (1 standard drink = 0.6 oz pur e alcohol) Sex and Gender Information Value Date Recorded Sex Assigned at Male 12/17/2024 8:02 PM HEALTHCARE ADMINISTRATION INTERN Legal Sex Male 9:50 PM HEALTHCARE ADMINISTRATION INTERN Gender Identity Not on file Sexual Orientation Not on file Last Filed Vital Signs Vital Sign Reading Time Taken Comments Blood Pressure 159/95 12/17/2024 8:05 PM HEALTHCARE ADMINISTRATION INTERN Pulse 99 12/17/2024 8:05 PM HEALTHCARE ADMINISTRATION INTERN Temperature 36.7 C (98.1 F) 12/17/2024 6:37 PM HEALTHCARE ADMINISTRATION INTERN Respiratory Rate 8 12/17/2024 8:05 PM HEALTHCARE ADMINISTRATION INTERN Oxygen Saturation 99% 12/17/2024 8:05 PM HEALTHCARE ADMINISTRATION INTERN Inhaled Oxygen Concentration - - Weight 107.2 kg (236 lb 5.3 oz) 12/17/2024 6:37 PM HEALTHCARE ADMINISTRATION INTERN Height 185.4 cm (6' 1) 12/17/2024 6:37 PM HEALTHCARE ADMINISTRATION INTERN Body Mass Index 31.18 12/17/2024 6:37 PM HEALTHCARE ADMINISTRATION INTERN Plan of Treatment Health Maintenance Due Date [...] patient's age to complete this topic Insurance [facility] Care Teams Over The Road Driver Relationship Specialty Start Date End Date Matthew Sorenson PA PCP - General PHYSICIAN EXAMINATION SUPERVISOR 12/17/24
--- OUTSIDE RECORDS SUMMARY | 2025-05-27 18:31 | XMS_ITS | Encounter Summary ---
Author Organization [facility] Address [address] [place] [address] Care Team Providers Care Production Line Technician Name Role Phone Matthew Sorenson Primary Care Provider [phone] Jose Luis Brooks MD Unavailable [phone] Abelardo Presley MD Unavailable [phone] Bo Francisco MD Unavailable [phone] Angie Rogers MD Unavailable Katie GutierrezD Unavailable Unavaila Jaja Casillas RN Unavailable Unavailable Abimbola Waters PHOTOENGRAVING PROOFER-SUPERVISOR PYROTECHNIC LOADING Unavailable [phone] Perri Dexter PHOTOENGRAVING PROOFER-SUPERVISOR PYROTECHNIC LOADING Unavailable [phone] Marilyn Bennett RN Unavailable Unavailable Erasmo Roberson RN Unavailable Unavailable Alexandra Cota RN Unavailable Unavailable Alda Braswell Unavailable Unavailable Lucia Sharif LCSW Unavailable Unavailab le Reason for Visit * Reason Onset Date Comments MEDICATION REFILL 10/20/2024 Encounter Details Date Type Department Care Team (Late st Contact Info) Description 10/20/2024 Refill [facility] - Hematology/Oncology [address] [place] [address] Jose Luis Brooks MD [address] [facility] [place] [address] MEDICATION REFILL Social History Tobacco [...] Recorded Patient Health Questionnaire-2 Score 1 08/12/2024 [facility] - Occupational [...] place to sleep or slept in a usp (including now)? No 06/04/2024 Housing Stability Vital Sign Answer Obed e Recorded In the last 12 months, was t here a time when you were not able to pay the mortgage or rent on time? Yes 10/24/2024 In the past 12 months, how m any times have you moved where you were living? 0 10/24/2024 At any time in the past 12 m [facility], were you homeless or living in a usp (including now)? 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 CDIFF Under Investigation 01/13/2025 01/13/2025 7:19 PM CDT COVID-19 Under Investigation 01/13/2025 01/13/2025 01/13/2025 4:01 PM CDT COVID-19 Under Investigation 02/12/2025 02/12/2025 02/12/2025 4:07 PM CDT documented as of this encounter Care Teams Production Line Technician Relationship Specialty Start Date End Date Matthew Sorenson PA [address] [place] [address] PCP - General 02/02/22 Jose Luis Brooks MD [address] [place] [address] Dry Molder/Oncologis t Hematology and Oncology 08/29/24 Abelardo Presley MD [facility] [place] [address] Hematology and Oncology 08/29/24 03/04/25 Bo Francisco MD [address] [place] [phone] Hematology and Oncology 08/29/24 03/04/25 Angie Rogers MD [address] [place] [phone] Physician Hematology and Oncology 08/29/24 03/04/25 Katie Gutierrez, PharmD 08/29/24 03/04/25 Jaja Rayo, RN Registered Nurse 08/29/24 03/04/25 Abimbola Waters, PHOTOENGRAVING PROOFER-SUPERVISOR PYROTECHNIC LOADING [address] [place] [phone] Nurse Practitioner Nurse Practitioner 08/29/24 03/04/25 Perri Dexter APRN-DIANNE [address] [place] [phone] Nurse Practitioner Nurse Practitioner 08/29/24 03/04/25 Marilyn Bennett, RN Coordinator 08/29/24 Erasmo Roberson, RN Registered Nurse 08/29/24 03/04/25 Alexandra Cota, RN Registered Nurse 08/29/24 03/04/25 Alda Braswell 08/29/24 03/04/25 Lucia Sharif, [employer] Manager Intermediate 08/29/24 03/04/25 documented as of this encounter
--- OUTSIDE RECORDS SUMMARY | 2025-05-27 18:31 | XMS_ITS ---
Author Organization [facility] Address [address] [place] [address] Care Team Providers Care Piping Design Specialist Name Role Phone Matthew Sorenson Primary Care Provider [phone] Jose Luis Brooks MD Unavailable [phone] Marilyn Bennett RN Unavailable Unavailable Active Problems [...]
--- OUTSIDE RECORDS SUMMARY | 2025-05-27 18:31 | XMS_ITS | Clinical Summary ---
Author Organization [facility] Address [address] [place] [address] Care Team Providers Care Port Cdl A Driver Name Role Phone Matthew Sorenson Primary Care Provider [phone] Matthew Sorenson Unavailable [phone] Allergies Active Allergy Reactions Criticality Noted Date [...] mouth 2 (two) times a day 5 Active hydrOXYzine (ATARAX) 25 mg tablet Take [...] current use of insulin 06/28/2024 Hypertension 06/03/2024 Encounters Date Type Department Care Team Description 04/06/2025 9:00 AM CDT Office Visit [facility] Bone Marrow Transplant [address] [place] [address] Floor [address] [place] [address] David Santiago MD Multiple myeloma, remission status unspecified (HCC) 04/06/2025 8:00 AM CDT Lab [facility] Oncology Lab [address] [place] [address] Floor [address] [place] [address] 04/06/2025 7:45 AM CDT Lab [facility] - Lab Collection [facility] Floor [address] [place] [address] Multiple myeloma not having achieved remission (HCC) 04/06/2025 Telephone [facility] Bone Marrow Transplant [address] [place] [address] 6 [place] [address] Agnes Hawkins RN 03/25/2025 Orders Only [facility]row Transplant [address] [place] [address] Floor [address] [place] [address] David Santiago MD Multiple myeloma not having achieved remission (HCC) (Primary Dx) from Last 3 Months Surgical History Surgery Date Site/Laterality Comments PORT PLACEMENT CHEST >5 YEARS 11/07/2024 N/A PORT PLACEMENT CHEST >5 YEARS 08/20/2024 N/A Family History Medical History Relation Name Comments Cancer Mother Relation Name Status Comments Mother Social History Tobacco Use Types Packs/Day Years [...] on file Legal 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 Male 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 Gender Identity Not on file Sexual Orientation Not on file Obstetrics History Last Filed Vital Signs Vital Sign Reading [...] 04/06/2025 8:19 AM CDT Plan of Treatment Health Maintenance Due Date Last Done Comments Albumin Creatinine Ratio, Urine 1978 Colon Cancer Screening-Colonoscopy 1978 Depression Screening 1978 Hepatitis C Screening 1978 Dilated Eye Exam 1978 Foot Exam 1978 Lipid Panel 1978 DTaP/Tdap/Td Vaccine (1 - Tdap) 1989 Hepatitis B Screening 1996 Regular Well Visit/Exam 18-64 1996 Pneumococcal vaccine <65 (1 of 2 - PCV) 1997 Zoster Vaccine (1 of 2) 1997 Hemoglobin A1C 12/26/2024 06/28/2024 Influenza Vaccine (#1) 2025 eGFR 04/06/2026 04/06/2025, 0206/2025, 12/13/2024, Additional history exists HPV Vaccines Aged Out No longer eligi [...] free light chains (04/06/2025 8:04 AM CDT) Pathologist [facility] [place]/Lambda ratio [facility] 1.33 0.26 - 1.65 Comment: Interpretive Data The Binding Site FreeLite assay procedure was used. Results from different manufacturers or methods may not be comparable. Serial testing should be performed using the same methods and instrumentation. Current Interpretive Data was last revised on 2023. [place] free light chain [facility] 1.45 0.33 - 1.94 mg/dL [facility] Comment: Interpretive Data The Binding Site FreeLite assay procedure was used. Results from different manufacturers or methods may not be comparable. Serial testing should be performed using the same methods and instrumentation. Current Interpretive Data was last revised on 2023. Lambda free light chain [facility] 1.09 0.57 - 2.63 mg/dL [facility] Comment: Interpretive Data The Binding Site FreeLite assay procedure was used. Results from different manufacturers or methods may not be comparable. Serial testing should be performed using the same methods and instrumentation. Current Interpretive Data was last revised on 2023. Blood 04/06/2025 8:04 AM CDT 04/06/2025 9:12 AM CDT us David Santiago MD LAB BLOOD ORDERABLES Final Resul t [facility] Department [place] [address] * (ABNORMAL) CBC with auto differential (04/06/2025 8:04 AM CDT) WBC 7.11 3.80 - 9.90 K/cumm Comment:Testing performed by : [facility], [address] [place] [address] Hgb 16.0 13.0 - 17.5 g/dL [facility] Comment:Testing performed by : [facility], [address] [place] [address] Hct 47.8 38.9 - 50.3 % [facility] Comment:Testing performed by : [facility], [address] [place] [address] Plt 257 150 - 400 K/cumm [facility] Comment:Testing performed by : [facility], [address] [place] [address] MPV 9.1 6.8 - 10.4 fL [facility] Comment:Testing performed by : [facility], [address] [place] [address] RBC 5.72 4.30 - 5.80 M/cumm [facility] Comment:Testing performed by : [facility], [address] [place] [address] MCV 83.6 81.3 - 96.4 fL [facility] Comment:Testing performed by : [facility], [address] [place] [address] MCH 28.0 27.1 - 33.3 pg [facility] Comment:Testing performed by : [facility], [address] [place] [address] MCHC 33.5 32.3 - 35.7 g/dL [facility] Comment:Testing performed by : [facility], [address] [place] [address] RDW CV 15.1(H) 11.1 - 14.9 % [facility] Comment:Testing performed by : [facility], [address] [place] [address] NRBC abs 0.00 0.00 - 0.01 K/cumm [facility] Comment:Testing performed by : [facility], [address] [place] [address] Blood 04/06/2025 8:04 AM CDT 04/06/2025 8:09 AM CDT us David Santiago MD LAB BLOOD ORDERABLES Edited Resu lt - Final [facility] Department of Laboratories [place], [place] [id number] * (ABNORMAL) Manual Differential (04/06/2025 8:04 AM CDT) Cells Counted 200 Comment:Testing performed by : [facility], [address] [place] [address] Neutrophil abs 2.84 1.50 - 6.50 K/cumm [facility] Comment:Testing performed by : [facility], [address] [place] [address] Lymphocyte abs 2.56 0.80 - 3.30 K/cumm [facility] Comment:Testing performed by : [facility], [address] [place] [phone] Monocyte abs 0.71 0.20 - 0.80 K/cumm [facility] Comment:Testing performed by : [facility], [address] [place] [phone] Eosinophil abs 0.50 0.00 - 0.50 K/cumm [facility] Comment:Testing performed by : [facility], [address] [place] [phone] Basophil abs 0.21(H) 0.00 - 0.10 K/cumm [facility] Comment:Testing performed by : [facility], [address] [place] [phone] Neutrophil pct 40.0 % [facility] Comment: Interpretive Data Percent cell count reference ranges are not reported, since discordance with absolute values may lead to misinterpretation of CBC data. Current Interpretive Data was last revised on 2018. Testing performed by: [facility], [address] [place] [phone] Lymphocyte pct 36.0 % [facility] Comment: Interpretive Data Percent cell count reference ranges are not reported, since discordance with absolute values may lead to misinterpretation of CBC data. Current Interpretive Data was last revised on 2018. Testing performed by: [facility], [address] [place] [phone] Monocyte pct 10.0 % [facility] Comment: Interpretive Data Percent cell count reference ranges are not reported, since discordance with absolute values may lead to misinterpretation of CBC data. Current Interpretive Data was last revised on 2018. Testing performed by: [facility], [address] [place] [phone] Eosinophil pct 7.0 % [facility] Comment: Interpretive Data Percent cell count reference ranges are not reported, since discordance with absolute values may lead to misinterpretation of CBC data. Current Interpretive Data was last revised on 2018. Testing performed by: [facility], [address] [place] [phone] Basophil pct 3.0 % [facility] Comment: Interpretive Data Percent cell count reference ranges are not reported, since discordance with absolute values may lead to misinterpretation of CBC data. Current Interpretive Data was last revised on 2018. Testing performed by: [facility], [address] [place], [place] [id number] Myelocyte pct 1.0(H) 0.0 - 0.0 % [facility] Comment:Testing performed by : [facility], [address] [place], [place] [phone] Variant lymph pct 5.0(H) 0.0 - 0.0 % [facility] Comment:Testing performed by : [facility], [address] [place], [place] [phone] RBC morphology Normal [facility] Comment:Testing performed by : [facility], [address] [place], [place] [phone] Platelet estimate Adequate [facility] Comment:Testing performed by : [facility], [address] [place], [place] [phone] Blood 04/06/2025 8:04 AM CDT 04/06/2025 8:09 AM CDT us David Santiago MD LAB BLOOD ORDERABLES Final Resul t [facility] Department [place] [address] * Protein electrophoresis with reflex, serum with interpretation (04/06/2025 8:04 AM CDT) Protein, sr 6.8 6.2 - 8.2 g/dL Albumin 4.3 3.2 - 5.0 g/dL [facility] Alpha-1 globulin 0.3 0.2 - 0.4 g/dL [facility] Alpha-2 globulin 1.0 0.5 - 1.0 g/dL [facility] Beta-1 globulin 0.4 0.3 - 0.6 g/dL [facility] Beta-2 globulin 0.3 0.2 - 0.6 g/dL [facility] Gamma globulin 0.5 0.5 - 1.7 g/dL [facility] SPEP interp Please see comment [facility] Comment: No apparent monoclonal peak Reviewed and signed by Jonatan Astorga MD, PhD 04/07/2025 Blood 04/06/2025 8:04 AM CDT 04/06/2025 9:12 AM CDT us David Santiago MD LAB BLOOD ORDERABLES Final Resul t Performing Organization Address City/[facility] Co de Phone Number [facility] Department [place] [address] * eGFR (04/06/2025 7:04 AM CDT) eGFR [...] ORDERABLES Final Resul t Performing Organization Address City/[facility]/ZIP Co de Phone Number [facility] Department [place] [address] * Lactate dehydrogenase (LD) (04/06/2025 7:04 AM CDT) Lactate dehydrogenase (LDH) 142 100 - 250 Units/L Blood 04/06/2025 7:04 AM CDT 04/06/2025 8:10 AM CDT David Santiago MD LAB BLOOD ORDERABLES Final Resul t Performing Organization Address [facility] de Phone Number [facility] [place] [address] * (ABNORMAL) IgA (04/06/2025 7:04 AM CDT) Immunoglobulin A <50(L) 70 - 400 mg/dL Blood 04/06/2025 7:04 AM CDT 04/06/2025 8:31 AM CDT David Santiago MD LAB BLOOD ORDERABLES Final Resul t Performing Organization Address [facility] de Phone Number [facility] of [employer] [place] [address] * (ABNORMAL) IgM (04/06/2025 7:04 AM CDT) Pathologist [facility] Immunoglobulin M <25(L) 40 - 230 mg/dL Blood 04/06/2025 7:04 AM CDT 04/06/2025 8:31 AM CDT David Santiago MD LAB BLOOD ORDERABLES Final Resul t Performing Organization Address [facility] de Phone Number [facility] [employer] [place] [address] * (ABNORMAL) IgG (04/06/2025 7:04 AM CDT) Immunoglobulin G 600(L) 700 - 1,600 mg/dL Blood 04/06/2025 7:04 AM CDT 04/06/2025 8:31 AM CDT David Santiago MD LAB BLOOD ORDERABLES Final Resul t Performing Organization Address City/[facility] de Phone Number [facility] [place] [address] * (ABNORMAL) Beta 2 microglobulin, serum (04/06/2025 7:04 AM CDT) Pathologist [facility] Beta 2 Microglobulin, Serum 2.60(H) 1.00 - 2.50 mg/L Comment: Interpretive Data The Nahum Beta-2 microglobulin assay procedure was used. Results from different manufacturers or methods may not be comparable. Serial testing should be performed using the same method. Blood 04/06/2025 7:04 AM CDT 04/06/2025 8:31 AM CDT David Santiago MD LAB BLOOD ORDERABLES Final Resul t Performing Organization Address [facility] de Phone Number [facility] Department [place] [address] * (ABNORMAL) Comprehensive metabolic panel (04/06/2025 7:04 AM CDT) [facility] Sodium 140 135 - 145 mmol/L Potassium, pl 3.9 3.3 - 4.9 mmol/L [facility] Chloride 106 97 - 110 mmol/L [facility] CO2 23 22 - 32 mmol/L [facility] Anion gap 11 2 - 15 mmol/L [facility] BUN 15 6 - 25 mg/dL [facility] Creatinine 0.81 0.80 - 1.30 mg/dL [facility] Glucose 169 70 - 199 mg/dL [facility] Comment: Interpretive Data Fasting glucose >/= 126 [...] 2022. Calcium 9.6 8.5 - 10.3 mg/dL [facility] Bilirubin, total 0.2 0.1 - 1.2 mg/dL [facility] Protein, pl 7.1 6.5 - 8.5 g/dL [facility] Albumin 4.4 3.5 - 5.0 g/dL [facility] Alk phos 199(H) 40 - 130 Units/L [facility] ALT 36 7 - 55 Units/L [facility] AST 19 10 - 50 Units/L [facility] Blood 04/06/2025 7:04 AM CDT 04/06/2025 8:10 AM CDT us David Santiago MD LAB BLOOD ORDERABLES Final Resul t [facility] Department [place] [address] from Last 3 Months Insurance [facility] Care Teams Port Cdl A Driver Relationship Specialty Start Date End Date Matthew Sorenson PA [address] [place] [address] PCP - General Family Practice 05/04/23 Matthew Sorenson PA [address] [place] [address] Family Practice 09/12/22
--- OUTSIDE RECORDS SUMMARY | 2025-05-27 18:31 | XMS_ITS | Encounter Summary ---
Author Organization [facility] Address [address] [place] [address] Care Team Providers Care Game Advisor Name Role Phone Matthew Sorenson Primary Care Provider [phone] Jose Luis Brooks MD Unavailable [phone] Abelardo Presley MD Unavailable [phone] Bo Francisco MD Unavailable [phone] Angie Rogers MD Unavailable Katie GutierrezD Unavailable Unavaila Jaja Casillas RN Unavailable Unavailable Abimbola Waters EMERGENCY TELECOMMUNICATIONS DISPATCHER-FISHING CAPTAIN Unavailable [phone] Perri Dexter EMERGENCY TELECOMMUNICATIONS DISPATCHER-FISHING CAPTAIN Unavailable [phone] Marilyn Bennett RN Unavailable Unavailable Erasmo Roberson RN Unavailable Unavailable Alexandra Cota RN Unavailable Unavailable Alda Braswell Unavailable Unavailable Lucia Sharif LCSW Unavailable Unavailab le Reason for Referral * (Routine) - Open Specialty Diagnoses / Procedures Referred By Contac t Referred To Contact Procedures Follow up with provider Juan Valencia MD [address] [place] [address] Phone: tel: fax: Referral ID Status Reason Start Date Expiration Date Visits Re quested Visits Authorized [id number] Open 02/19/2025 02/19/2026 1 1 * Radiology Services (Routine) - Open Specialty Diagnoses / Procedures Referred By Contac t Referred To Contact Diagnoses Hepatitis C virus infection without hepatic coma, unspecified chronicity History of multiple myeloma Procedures CT US Guided Needle Placement IR Perc Liver Biopsy Juan Valencia MD [address] [facility] [address] [place] [address] Phone: tel: fax: [facility] [address] [place] [address] Phone: tel: Referral ID Status Reason Start Date Expiration Date Visits Re quested Visits Authorized [id number] Open 02/19/2025 02/19/2026 1 1 Reason for Visit * Auth/Cert (Routine) Specialty Diagnoses / Procedures Referred By Contac t Referred To Contact Diagnoses Chronic hepatitis C without hepatic coma (HCC) Transaminitis Chronic hepatitis C without hepatic coma (HCC) [B18.2] Transaminitis [R74.01] Procedures [place] US GUIDED NEEDLE PLACEMENT BIOPSY LIVER (NEEDLE/PERCUTANEOUS) Referral ID Status Reason Start Date Expiration Date Visits Re quested Visits Authorized [id number] 1 1 Encounter Details Date Type Department Care Team (Latest Contact Info) Description 02/19/2025 11:37 AM CDT Hospital Encounter [facility] [address] [place] [id number] Juan Valencia MD [facility] [facility] [address] [place] [address] [facility]ven Radiology Social History Tobacco Use Types [...] Recorded Patient Health Questionnaire-2 Score 0 11/20/2024 [facility] - Occupational [...] place to sleep or slept in a long term (including now)? No 06/04/2024 Housing Stability Vital Sign Answer Obed e Recorded In the last 12 months, was t here a time when you were not able to pay the mortgage or rent on time? Yes 11/23/2024 In the past 12 months, how m any times have you moved where you were living? 0 11/23/2024 At any time in the past 12 m [facility], were you homeless or living in a long term (including now)? 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 Callum Guerrero MD Harvest Contractor Vascular & Interventional Radiology 02/20/2025 5:30 AM documented in this encounter Miscellaneous Notes * Clinical References AVS - Richie Alejandro RN - 02/19/2025 1:22 PM CDT Images from the original note were not included. [id number] Liver Biopsy A liver biopsy is when [...] naproxen. ?? Medicines for heart conditions ?? Jdri-rvd-hndixuw medicines ?? All prescription medicines ?? Illegal [...] belly Last Reviewed Date: 2023 00:00:00 ?? [phone] All rights reserved. This information is not intended as a substitute for professional medical care. Always follow your healthcare professional's instructions. documented in this encounter Plan of Treatment Upcoming Encounters Date Type Department Care Team (Late st Contact Info) Description 05/28/2025 2:30 PM CDT Office Visit [facility] - Infectious Disease [address] [place] [address], [place] [address] Cristian Mcmillan MD [address] [place] [phone] documented as of this encounter Procedures Procedure [...] evaluation, please review the evaluation forms in [facility]. For details on monitored clinical parameters during the intra-service sedation time, please review the procedure nurse documentation in [facility]. > Dictated by Seng Gaston MD (Conference And Event Organiser) 02/19/2025 12:59 PM ICallum MD have personally [...] response to care. Intra-service sedation start time [id number] hours and end time was 1236 hours during which I was present. Total physician intra-service sedation time was 30 minutes. For details on pre moderate sedation and post moderate sedation patient evaluation, please review the evaluation forms in [facility]. For details on monitored clinical parameters during the intra-service sedation time, please review the procedure nurse documentation in [facility]. > Dictated by Seng Gaston MD (Conference And Event Organiser) 02/19/2025 12:59 PM ICallum MD have personally reviewed and interpreted this examination/study. > Interpreting Provider: Callum Guerrero MD on 02/24/2025 5:33 PM Juan Valencia MD CT ORDERABLES Final Result * PATHOLOGY TISSUE (02/19/2025 12:34 PM CDT) Case Report Surgical Pathology Report Case: [id number] Authorizing Provider: Juan Valencia MD Collected: 02/19/2025 12:34 PM Ordering Location: [facility] Received: 02/19/2025 01:06 PM Pathologist: Sammi Escalante MD Specimen: Liver Needle Biopsy, liver bx 02/20/2025 3:50 PM CDT [facility] Final Diagnosis Liver, biopsy (A): - Chronic hepatitis with minimal-mild activity - Steatosis and lobular inflammation without ballooning - Cirrhosis, see comment 02/20/2025 3:50 PM CDT [facility] at 1550 CDT [...] 8 (steatosis-1, inflammation-1, ballooning-0). 02/20/2025 3:50 PM [facility] Clinical History The patient is a 44-year-old man with history of hepatitis C infection and appearance of cirrhosis on diagnostic imaging. Operative procedure: Ultrasound-guided random core liver biopsy 02/20/2025 3:50 PM [facility] Gross Description The requisition and specimen(s) are identified with the patient's name, Joselito Nguyen. Received in formalin, specimen A, are two baldwin-pink needle cores, 1.7 and 1.0 cm, both 0.1 cm diameter, submitted in toto in cassette A1. IKD 02/20/2025 3:50 PM [facility] Pathologist Location at [facility] 02/20/2025 3:50 PM [facility] Disclaimer The performance [...] (teaching) pathologist. 02/20/2025 3:50 PM CDT [facility] Collected By Balbir Rdz RN 3:50 PM CDT [facility] Embedded Images 02/20/2025 3:50 PM CDT [facility] Pathology/Cytolo gy NEEDLE BIOPSY OF LIVER / Unknown Collection / Unknown 02/19/2025 12:34 PM CDT 02/19/2025 1:06 PM CDT Comment:LIVER NEEDLE BIOPSY Juan Valencia MD LAB - PATHOLOGY/CYTOLOGY ORDER LISSETH Final Result [facility] [address] [phone] documented in this encounter Visit Diagnoses Diagnosis [...] documented as of this encounter Care Teams Game Advisor Relationship Specialty Start Date End Date Matthew Sorenson PA [address] [place] [address] PCP - General 02/02/22 Jose Luis Brooks MD [address] [place] [address] Poured Concrete Wall Technician/Oncologis t Hematology and Oncology 08/29/24 Abelardo Presley MD [address] [place] [address] Hematology and Oncology 08/29/24 03/04/25 Bo Francisco MD [address] [place] [phone] Hematology and Oncology 08/29/24 03/04/25 Angie Rogers MD [address] [place] [phone] Physician Hematology and Oncology 08/29/24 03/04/25 Katie Gutierrez, PharmD 08/29/24 03/04/25 Jaja Rayo, RN Registered Nurse 08/29/24 03/04/25 Abimbola Waters APRN-DIANNE [address] [place] [phone] Nurse Practitioner Nurse Practitioner 08/29/24 03/04/25 Perri Dexter APRN-FISHING CAPTAIN [address] [place] [phone] Nurse Practitioner Nurse Practitioner 08/29/24 03/04/25 Marilyn Bennett, RN Coordinator 08/29/24 Erasmo Roberson, RN Registered Nurse 08/29/24 03/04/25 Alexandra Cota, RN Registered Nurse 08/29/24 03/04/25 Alda Braswell 08/29/24 03/04/25 Lucia Sharif LCSW Director Of Respiratory Therapy 08/29/24 03/04/25 documented as of this encounter
--- NOTE | 2025-05-27 18:38 | ED_ITS ---
HPI - Back Pain/Injury General Chief Complaint: Back Pain/Injury Stated Complaint: back pain Time Seen by Provider: 05/27/25 18:31 Source: patient Mode of arrival: ambulatory Limitations: no limitations History of Present Illness HPI Narrative: 44-year-old male with a history of smoking, amphetamine abuse, hepatitis-C, diabetes mellitus, migraine, multiple myeloma diagnosed in May of 2024 status post L1-L5 spinal fusion with vertebroplasty of L3, pulmonary embolism, pulmonary nodules on chemotherapy has been having low back pain. Patient had a CT of the thoracic and lumbar spine 2 months ago, which revealed mild spinal stenosis at T10/T11, L3/L4 and foraminal stenosis at L2/L3 levels. Patient presents to the ED with a 1 hour history of worsening low back pain which is radiating in a girdle like fashion anteriorly and radiating down left anterior thigh. -- Chest pain on taking a deep breath. patient is on Eliquis for pulmonary embolism. No fever or chills. No new motor or sensory deficits. no bladder or bowel involvement. MD elicited complaint: back pain Pertinent past history: prior back pain Onset (ago): hour(s) ( 1 hour) Timing: constant Severity: severe Pain scale (0-10): 10 Similar Symptoms Previously: Yes Quality: aching Location: lumbar spine Radiation: groin and other ( pain radiates around like a girl to the front and radiates anteriorly to the thighs.) Exacerbating factors: movement Relieving factors: immobilization Associated symptoms: denies other symptoms and other ( Pleuritic chest pain) Work related injury: No Related Data Home Medications ?Medication ?Instructions ?Recorded ?Confirmed ?Last Taken ?Type Adult Aspirin EC Low Strength 81 mg PO DAILY 08/29/24 08/29/24 Unknown History acetaminophen 300 mg-codeine 30 mg 300 tablet PO Q6H PRN Pain, 08/29/24 08/29/24 Unknown History tablet Moderate acyclovir 400 mg tablet 400 mg PO BID 08/29/24 08/29/24 Unknown History carvedilol 12.5 mg tablet 12.5 mg PO BID 08/29/24 08/29/24 Unknown History empagliflozin 25 mg tablet 25 mg PO DAILY 08/29/24 08/29/24 Unknown History (Jardiance) insulin aspart U-100 100 unit/mL 5 unit subcut TID 08/29/24 08/29/24 Unknown History (3 mL) subcutaneous pen insulin glargine-yfgn 100 unit/mL 20 unit subcut DAILY 08/29/24 08/29/24 Unknown History (3 mL) subcutaneous pen ondansetron HCl 8 mg tablet 8 mg PO Q6H PRN Nausea 08/29/24 08/29/24 Unknown History prochlorperazine maleate 10 mg 10 mg PO Q6H PRN Nausea 08/29/24 08/29/24 Unknown History tablet sennosides 8.6 mg tablet (senna) 17.2 mg PO DAILY PRN Constipation 08/29/24 08/29/24 Unknown History Allergies Allergy/AdvReac Type Severity Reaction Status Date / Time morphine Allergy Mild Redness of Verified 05/27/25 18:34 Skin Review of Systems 2 Review of Systems: All systems reviewed & are unremarkable except as noted in HPI and below PMFSH Past Medical History Medical History Multiple myeloma Hepatitis C Migraine Surgical History Surgical History S/P appendectomy Hx of cholecystectomy Family History Family History Other Hypertension Social History Social History Social History: 43-year-old man who lives with his Cira gusman who he deems his emergency contact. He reports a history of IV drug use with last IV drug use in 2020. He is a current methamphetamine user. Smoking status: Current every day smoker Tobacco type: cigarettes Second hand tobacco smoke exposure: Yes Alcohol intake: never Alcohol use details: per his reports Substance use: current Substance use type: marijuana, amphetamines and painkillers Last use: 08/27 Do You Feel Safe in your Home?: Yes Lack of Transportation: No Lack of Food: Never True Current Housing: I Have Housing Concerned About Future Housing: No Difficulty Paying Gas/Electric Bills: No Difficulty Paying for Meds: No Currently Unemployed: No Education: High School Diploma/GED Difficulty w/ Childcare or Family Care: No Living arrangements: with family Occupation/Education: occupation Spiritual care concerns: No Exam 2 Narrative: vitals are stable. Const: General: ill appearing Orientation/consciousness: patient oriented x3 Limitations: no limitations HENMT: Head: normal to inspection Ears: external ears normal F angie/Nose/Sinus: Normal external nose present Face and sinus: normal facial exam Mouth: Yes Normal oral and palatal mucosa present Throat: posterior oropharynx normal Eyes: Conjunctivae: conjunctivae normal Pupils: Equal, round and reactive pupils present EOM: EOMs intact bilaterally Direct Ophthalmoscopy: no photophobia Neck: Neck: normal visual inspection, no lymphadenopathy and no meningeal signs Chest: Chest palpation & inspection: normal inspection of the chest Resp: Effort & Inspection: normal respiratory effort Auscultation: clear to auscultation bilaterally Cardio: Rate: regular rate Rhythm: regular rhythm GI: Auscultation: normal bowel sounds Other: No tenderness/rigidity/rebound. : General: Yes no CVA tenderness Back/Spine/Pelvis: Back: no CVA tenderness Skin: General skin exam: normal color Rashes: no rashes Wounds: no wounds Neuro: General: patient oriented x3, moves all extremities, no meningeal signs, no focal motor deficits and CN's II-XI intact bilaterally Speech: n ormal speech Other: Straight leg raising test is positive on both sides. No sensory loss. Sensation intact in the perineum. Able to move his legs. No bladder or bowel involvement. Extrem: General: normal to inspection and no clubbing, cyanosis or edema Psych: Mental Status: mental status grossly normal Affect: normal affect Attitude: cooperative Course Course Emergency Course: Recurrent low pain. CT of the lumbar spine revealed -- chronic L1-L5 fusion with vertebroplasty of L3. -- Severe canal stenosis at L3 -- multilevel degenerative disc disease which is severe at L5/S1 with bilateral neural foraminal narrowing and foraminal narrowing at L3/4. .-- Mixed lytic and sclerotic areas in the posterior superior iliac spine and the left the patient received 50 mcg of fentanyl without any relief. Subsequently the patient received 1 mg of IM Dilaudid. Vital Signs Vital signs: Vital Signs Temperature 36.7 C 05/27/25 18:30 Pulse Rate 71 05/27/25 18:30 Respiratory Rate 20 05/27/25 18:30 Blood Pressure 146/93 H 05/27/25 18:30 Pulse Oximetry 98 05/27/25 18:30 Oxygen Delivery Room Air 05/27/25 18:30 Temperature 36.7 C 05/27/25 18:30 Pulse Rate 71 05/27/25 18:30 Respiratory Rate 20 05/27/25 18:30 Blood Pressure 146/93 H 05/27/25 18:30 Pulse Oximetry 98 05/27/25 18:30 Oxygen Delivery Room Air 05/27/25 18:30 MDM - Back Pain/Injury MDM Narrative Medical decision making narrative: Recurrent lower back pain. Multiple myeloma of L3 vertebrae status post vertebroplasty worsening back pain without any bladder or bowel involvement. Bladder volume was noted to be 219( Not post void residual) No motor or sensory weakness noted. blood work revealed a white cell count of 11.2. chemistries unremarkable. Differential Diagnosis Differential diagnosis: Likely lumbar radiculopathy, sciatica and strain of lumbar region Medical Records Attestation: I reviewed the patient's medical records. Lab Data Attestation: I reviewed the patient's lab results. 05/27/25 20:32 05/27/25 20:32 Labs: Lab Results 05/27/25 Range/Units 20:32 WBC 11.2 H (4.8-10.8) K/mm3 RBC 5.52 (4.70-6.10) M/mm3 Hgb 15.8 (14.0-18.0) g/dL Hct 47.9 (40.0-54.0) % MCV 86.8 (78.0-102.0) fL MCH 28.6 (27.0-31.0) pg MCHC 33.0 (32-36) g/dL RDW 14.7 H (11.6-14.4) % Plt Count 219 (150-420) K/mm3 MPV 10.7 (8.7-11.0) fl Immature Gran % (Auto) 0.2 H (0.0-0.0) % Neut % (Auto) 46.8 L (50.0-70.0) % Lymph % (Auto) 39.2 (18.0-42.0) % [place] % (Auto) 9.6 (2.0-11.0) % Eos % (Auto) 3.4 (1.0-6.0) % Baso % (Auto) 0.8 (0.0-1.0) % Lymph # (Auto) 4.39 (1.10-4.50) K/mm3 [place] # (Auto) 1.08 H (0.10-0.90) K/mm3 Eos # (Auto) 0.38 (0.02-0.50) K/mm3 Baso # (Auto) 0.09 (0.00-0.10) K/mm3 Abs Immat Gran (auto) 0.02 H (0.00-0.00) K/mm3 Absolute Neuts (auto) 5.25 (1.70-7.20) K/mm3 Absolute Nucleated RBC 0.00 (0.00-0.00) K/mm3 Nucleated RBC % 0.0 (0-0.0) % PT 10.6 (9.50-12.1) Seconds INR 1.0 Sodium 139 (137-145) mmol/L Potassium 3.8 (3.4-5.0) mmol/L Chloride 108 H (98-107) mmol/L Carbon Dioxide 24 (22-30) mmol/L Anion Gap 7 (4-12) mmol/L BUN 14 (9-20) mg/dL Creatinine 1.00 (0.7-1.3) mg/dL Estim Creat Clear Calc 106 ml/min Estimated GFR > 60 (59 - ) Glucose 105 (65-110) mg/dL Calculated Osmolality 288 (285-295) mOsm/kg Lactic Acid 0.9 (0.4-2.0) mmol/L Calcium 8.9 (8.4-10.2) mg/dL Total Bilirubin 0.4 (0.2-1.3) mg/dL AST 28 (17-59) U/L ALT 25 (6-50) U/L Alkaline Phosphatase 100 (38-126) U/L C-Reactive Protein < 0.5 (<1.0) mg/dL Total Protein 6.8 (6.3-8.2) g/dL Albumin 4.5 (3.5-5.1) g/dL Discharge Plan Discharge Clinical Impression: Central stenosis of spinal canal, Foraminal stenosis due to intervertebral disc disease Acute back pain Qualifiers: Back pain location: low back pain Back pain laterality: bilateral Sciatica presence: with sciatica Sciatica laterality: sciatica of left side Qualified Code(s): M54.42 - Lumbago with sciatica, left side Multiple myeloma Qualifiers: Multiple myeloma remission status: unspecified Qualified Code(s): C90.00 - Multiple myeloma not having achieved remission Patient Disposition: Home Condition: Stable Instructions: Antibiotic Form Additional Instructions: transfer patient to [facility] ER. Patient has been accepted by Patient Language: Luxembourgish Prescriptions: No Action Adult Aspirin EC Low Strength tablet 81 mg PO DAILY sennosides [senna] 8.6 mg tablet 17.2 mg PO DAILY PRN (Reason: Constipation) carvedilol 12.5 mg tablet 12.5 mg PO BID ondansetron HCl 8 mg tablet 8 mg PO Q6H PRN (Reason: Nausea) acetaminophen-codeine 300-30 mg tablet 300 tablet PO Q6H PRN (Reason: Pain, Moderate) prochlorperazine maleate 10 mg tablet 10 mg PO Q6H PRN (Reason: Nausea) acyclovir 400 mg tablet 400 mg PO BID insulin aspart U-100 100 unit/mL (3 mL) insulin pen 5 unit SUBCUT TID Rx Instructions: with meals Jardiance 25 mg tablet 25 mg PO DAILY insulin glargine-yfgn 100 unit/mL (3 mL) insulin pen 20 unit SUBCUT DAILY heparin (porcine) in 5 % dex 25,000 unit/250 mL(100 unit/mL) Parenteral Solution 25,000 unit continuous IV infusion .[id number] Qty: 6000 0RF oxycodone-acetaminophen [Percocet] 5-325 mg tablet 1 tablet PO Q6H PRN (Reason: pain) Qty: 14 0RF Follow-up/Referrals: UNKNOWN,DOCTOR [Primary Care Provider] - Time of Disposition: 21:34
--- NOTE | 2025-05-27 18:55 | PC.NURSE ---
ASSUMED CARE. REPORT RECEIVED FROM MONICA ENNIS
--- OUTSIDE RECORDS SUMMARY | 2025-05-27 19:02 | XMS_ITS | Clinical Summary ---
Author Organization [facility] Address [facility] [place] [address] Care Team Providers Care Bench Worker Helper Name Role Phone Matthew Sorenson Primary Care Provider [phone] Allergies Active Allergy Reactions Criticality Noted Date [...] Sex Assigned at Male 12/17/2024 8:02 PM BLOW TORCH OPERATOR Legal Sex Male 9:50 PM BLOW TORCH OPERATOR Gender Identity Not on file Sexual Orientation Not on file Last Filed Vital Signs Vital Sign Reading Time Taken Comments Blood Pressure 159/95 12/17/2024 8:05 PM BLOW TORCH OPERATOR Pulse 99 12/17/2024 8:05 PM BLOW TORCH OPERATOR Temperature 36.7 C (98.1 F) 12/17/2024 6:37 PM BLOW TORCH OPERATOR Respiratory Rate 8 12/17/2024 8:05 PM BLOW TORCH OPERATOR Oxygen Saturation 99% 12/17/2024 8:05 PM BLOW TORCH OPERATOR Inhaled Oxygen Concentration - - Weight 107.2 kg (236 lb 5.3 oz) 12/17/2024 6:37 PM BLOW TORCH OPERATOR Height 185.4 cm (6' 1) 12/17/2024 6:37 PM BLOW TORCH OPERATOR Body Mass Index 31.18 12/17/2024 6:37 PM BLOW TORCH OPERATOR Plan of Treatment Health Maintenance Due Date [...] patient's age to complete this topic Insurance [employer] Care Teams Bench Worker Helper Relationship Specialty Start Date End Date Matthew Sorenson PA PCP - General PHYSICIAN QUITLINE COUNSELOR 12/17/24
--- OUTSIDE RECORDS SUMMARY | 2025-05-27 19:02 | XMS_ITS | Clinical Summary ---
Author Organization [facility] Address [address] [place] [address] Care Team Providers Care Energy Conservation Representative Name Role Phone Matthew Sorenson Primary Care Provider [phone] Matthew Sorenson Unavailable [phone] Allergies Active Allergy Reactions Criticality Noted [...] Description 04/06/2025 9:00 AM CDT Office Visit [facility] Bone Marrow Transplant [address] [place] [address] Floor 6 [place] [address] David Santiago MD Multiple myeloma, remission status unspecified (HCC) 04/06/2025 8:00 AM CDT Lab [facility] Oncology Lab [address] [place] [address] Floor 6 [place] [address] 04/06/2025 7:45 AM CDT Lab [facility] - Lab Collection [facility] Floor 6 [place] [address] Multiple myeloma not having achieved remission (HCC) 04/06/2025 Telephone [facility] Bone Marrow Transplant [address] [place] [address] 6 [place] [address] Agnes Hawkins RN 03/25/2025 Orders Only [facility] Bone Marrow Transplant [address] [place] [address] Floor 6 [place] [address] David Santiago MD Multiple myeloma not having [...] on file 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 Results from different manufacturers or methods may not be comparable. Serial testing should be performed using the same methods and instrumentation. Current Interpretive Data was last revised on 2023. Heartland free light chain [facility] 1.45 0.33 - 1.94 mg/dL USMAN [facility] Comment: Interpretive Data The Binding Site FreeLite assay procedure was used. Results from different manufacturers or methods may not be comparable. Serial testing should be performed using the same methods and instrumentation. Current Interpretive Data was last revised on 2023. Lambda free light chain [facility] 1.09 0.57 - 2.63 mg/dL USMAN [...] ORDERABLES Final Resul t USMAN PHILLIPS [facility] Department [place] [address] * (ABNORMAL) CBC with auto differential (04/06/2025 8:04 AM CDT) WBC 7.11 3.80 - 9.90 K/cumm Comment:Testing performed by : [facility]e [facility], [address] [place] [address] Hgb 16.0 13.0 - 17.5 g/dL USMAN [facility] Comment:Testing performed by : [facility], [address] [place] [address] Hct 47.8 38.9 - 50.3 % USMAN PHILLIPS Comment:Testing performed by : [facility], [address] [place] [address] Plt 257 150 - 400 K/cumm [facility]ILLIPS Comment:Testing performed by : [facility], [address] [place] [address] MPV 9.1 6.8 - 10.4 fL USMAN [facility]ILLIPS Comment:Testing performed by : [facility], [address] [place] [address] RBC 5.72 4.30 - 5.80 M/cumm USMAN PHILLIPS Comment:Testing performed by : [facility], [address] [place] [address] MCV 83.6 81.3 - 96.4 fL USMAN PHILLIPS Comment:Testing performed by : [facility], [address] [place] [address] MCH 28.0 27.1 - 33.3 pg USMAN PHILLIPS Comment:Testing performed by : [facility], [address] [place] [address] MCHC 33.5 32.3 - 35.7 g/dL USMAN PHILLIPS Comment:Testing performed by : [facility], [address] [place] [address] RDW CV 15.1(H) 11.1 - 14.9 % USMAN PHILLIPS Comment:Testing performed by : [facility], [address] [place] [address] NRBC abs 0.00 0.00 - 0.01 K/cumm USMAN PHILLIPS Comment:Testing performed by : [facility], [address] [place] [address] Blood 04/06/2025 8:04 AM CDT 04/06/2025 8:09 AM CDT us David Santiago MD LAB BLOOD ORDERABLES Edited Resu lt - Final USMAN PHILLIPS [facility] Department of Laboratories [place], [place] [id number] * (ABNORMAL) Manual Differential (04/06/2025 8:04 AM CDT) Cells Counted 200 Comment:Testing performed by : [facility], [address] [place] [address] Neutrophil abs 2.84 1.50 - 6.50 K/cumm USMAN PHILLIPS Comment:Testing performed by : [facility], [address] [place] [address] Lymphocyte abs 2.56 0.80 - 3.30 K/cumm USMAN PHILLIPS Comment:Testing performed by : [facility], [address] [place] [phone] Monocyte abs 0.71 0.20 - 0.80 K/cumm [facility] Comment:Testing performed by : [facility], [address] [place] [phone] Eosinophil abs 0.50 0.00 - 0.50 K/cumm [facility] Comment:Testing performed by : [facility], [address] [place] [phone] Basophil abs 0.21(H) 0.00 - 0.10 K/cumm [facility] Comment:Testing performed by : [facility], [address] [place] [phone] Neutrophil pct 40.0 % [facility] Comment: Interpretive Data Percent cell count reference ranges are not reported, since discordance with absolute values may lead to misinterpretation of CBC data. Current Interpretive Data was last revised on 2018. Testing performed by: [facility], [address] [place] [phone] Lymphocyte pct 36.0 % [facility] Comment: Interpretive Data Percent cell count reference ranges are not reported, since discordance with absolute values may lead to misinterpretation of CBC data. Current Interpretive Data was last revised on 2018. Testing performed by: [facility], [address] [place] [phone] Monocyte pct 10.0 % [facility] Comment: Interpretive Data Percent cell count reference ranges are not reported, since discordance with absolute values may lead to misinterpretation of CBC data. Current Interpretive Data was last revised on 2018. Testing performed by: [facility], [address] [place] [phone] Eosinophil pct 7.0 % [facility] Comment: Interpretive Data Percent cell count reference ranges are not reported, since discordance with absolute values may lead to misinterpretation of CBC data. Current Interpretive Data was last revised on 2018. Testing performed by: [facility], [address] [place] [phone] Basophil pct 3.0 % [facility] Comment: Interpretive Data Percent cell count reference ranges are not reported, since discordance with absolute values may lead to misinterpretation of CBC data. Current Interpretive Data was last revised on 2018. Testing performed by: [facility], [address] [place], [place] [phone] Myelocyte pct 1.0(H) 0.0 - 0.0 % [facility]ER[facility]INIQUE [facility] Comment:Testing performed by : [facility], [address] [place], [place] [id number] Variant lymph pct 5.0(H) 0.0 - 0.0 % [facility] Comment:Testing performed by : [facility], [address] [place], [place] [phone] RBC morphology Normal [facility] Comment:Testing performed by : [facility], [address] [place], [place] [id number] Platelet estimate Adequate [facility] Comment:Testing performed by : [facility], [address] [place], [place] [phone] Blood 04/06/2025 8:04 AM CDT 04/06/2025 8:09 AM CDT us David Santiago MD LAB BLOOD ORDERABLES Final Resul t [facility] Department [place] [address] * Protein electrophoresis with reflex, serum with interpretation (04/06/2025 8:04 AM CDT) Protein, sr 6.8 6.2 - 8.2 g/dL Albumin 4.3 3.2 - 5.0 g/dL [facility] Alpha-1 globulin 0.3 0.2 - 0.4 g/dL [facility] Alpha-2 globulin 1.0 0.5 - 1.0 g/dL [facility] Beta-1 globulin 0.4 0.3 - 0.6 g/dL [facility] Beta-2 globulin 0.3 0.2 - 0.6 g/dL [facility] Gamma globulin 0.5 0.5 - 1.7 g/dL [facility] SPEP interp Please see comment [facility] Comment: No apparent monoclonal peak Reviewed and signed by Jonatan Astorga MD, PhD 04/07/2025 Blood 04/06/2025 8:04 AM CDT 04/06/2025 9:12 AM CDT us David Santiago MD LAB BLOOD ORDERABLES Final Resul t Performing Organization Address City[facility] Co de Phone Number [facility] Department [place] [address] * eGFR (04/06/2025 7:04 AM CDT) eGFR [...] ORDERABLES Final Resul t Performing Organization Address City/[facility]/ZIP Co de Phone Number [facility] Department [place] [address] * Lactate dehydrogenase (LD) (04/06/2025 7:04 AM CDT) Lactate dehydrogenase (LDH) 142 100 - 250 Units/L Blood 04/06/2025 7:04 AM CDT 04/06/2025 8:10 AM CDT David Santiago MD LAB BLOOD ORDERABLES Final Resul t Performing Organization Address [facility] de Phone Number [facility] [place] [address] * (ABNORMAL) IgA (04/06/2025 7:04 AM CDT) Immunoglobulin A <50(L) 70 - 400 mg/dL Blood 04/06/2025 7:04 AM CDT 04/06/2025 8:31 AM CDT David Santiago MD LAB BLOOD ORDERABLES Final Resul t Performing Organization Address [facility] de Phone Number [facility] [place] [address] * (ABNORMAL) IgM (04/06/2025 7:04 AM CDT) Pathologist [facility] Immunoglobulin M <25(L) 40 - 230 mg/dL Blood 04/06/2025 7:04 AM CDT 04/06/2025 8:31 AM CDT David Santiago MD LAB BLOOD ORDERABLES Final Resul t Performing Organization Address [facility] de Phone Number [facility] [place] [address] * (ABNORMAL) IgG (04/06/2025 7:04 AM CDT) Immunoglobulin G 600(L) 700 - 1,600 mg/dL Blood 04/06/2025 7:04 AM CDT 04/06/2025 8:31 AM CDT David Santiago MD LAB BLOOD ORDERABLES Final Resul t Performing Organization Address [facility] de Phone Number [facility] [place] [address] * (ABNORMAL) Beta 2 microglobulin, serum (04/06/2025 7:04 AM CDT) Pathologist [facility] Beta 2 Microglobulin, Serum 2.60(H) 1.00 - 2.50 mg/L Comment: Interpretive Data The Nahum Beta-2 microglobulin assay procedure was used. Results from different manufacturers or methods may not be comparable. Serial testing should be performed using the same method. Blood 04/06/2025 7:04 AM CDT 04/06/2025 8:31 AM CDT David Santiago MD LAB BLOOD ORDERABLES Final Resul t Performing Organization Address [facility] de Phone Number USMAN [facility] Department [place] [address] * (ABNORMAL) Comprehensive metabolic panel (04/06/2025 7:04 AM CDT) [facility] Sodium 140 135 - 145 mmol/L Potassium, pl 3.9 3.3 - 4.9 mmol/L [facility] Chloride 106 97 - 110 mmol/L [facility] CO2 23 22 - 32 mmol/L [facility] Anion gap 11 2 - 15 mmol/L [facility] BUN 15 6 - 25 mg/dL [facility] Creatinine 0.81 0.80 - 1.30 mg/dL [facility] Glucose 169 70 - 199 mg/dL [facility] Comment: Interpretive Data Fasting glucose >/= [...] AST 19 10 - 50 Units/L [facility] Blood 04/06/2025 7:04 AM CDT 04/06/2025 8:10 AM CDT us David Santiago MD LAB BLOOD ORDERABLES Final Resul t [facility] Department [place] [address] from Last 3 Months Insurance [facility] Care Teams Energy Conservation Representative Relationship Specialty Start Date End Date Matthew Sorenson PA [address] [place] [address] PCP - General Family Practice 05/04/23 Matthew Sorenson PA [address] [place] [address] Family Practice 09/12/22
--- OUTSIDE RECORDS SUMMARY | 2025-05-27 19:02 | XMS_ITS | Encounter Summary ---
Author Organization [facility] Address [address] [place] [address] Care Team Providers Care Handicapped Teacher Name Role Phone Matthew Sorenson Primary Care Provider [phone] Jose Luis Brooks MD Unavailable [phone] Abelardo Presley MD Unavailable [phone] Bo Francisco MD Unavailable [phone] Angie Rogers MD Unavailable Katie GutierrezD Unavailable Unavaila Jaja Casillas RN Unavailable Unavailable Abimbola Waters RECRUIT INSTRUCTOR-SKIMMER Unavailable [phone] Perri Dexter RECRUIT INSTRUCTOR-SKIMMER Unavailable [phone] Marilyn Bennett RN Unavailable Unavailable Erasmo Roberson RN Unavailable Unavailable Alexandra Cota RN Unavailable Unavailable Alda Braswell Unavailable Unavailable Lucia Sharif LCSW Unavailable Unavailab le Reason for Visit * Reason Onset Date Comments MEDICATION REFILL 10/20/2024 Encounter Details Date Type Department Care Team (Late st Contact Info) Description 10/20/2024 Refill [facility] - Hematology/Oncology [address] [place] [address] Jose Luis Brooks MD [address] [facility]ATOLOGY [place] [address] MEDICATION REFILL Social History Tobacco [...] Recorded Patient Health Questionnaire-2 Score 1 08/12/2024 [facility] - Occupational [...] place to sleep or slept in a half-way (including now)? No 06/04/2024 Housing Stability Vital [...] time in the past [address] [facility], were you homeless or living in a half-way (including now)? 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 Gender Identity Not on file Sexual Orientation [...] of Assessment Author No 09/05/2024 9:00 AM SENIOR SALES ASSOCIATE Ruthy Mueller RN * Does person have [...] Visit [facility] - Infectious Disease [address] [place] [address], [facility] [place] [address] Cristian Mcmillan MD [facility] [place] [phone] documented as of this encounter Visit Diagnoses Not on filedocumented in this encounter Additional Health Concerns Infection Onset Date Last Indicated Resolved Time 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 CDIFF Under Investigation 01/13/2025 01/13/2025 7:19 PM CDT COVID-19 Under Investigation 01/13/2025 01/13/2025 01/13/2025 4:01 PM CDT COVID-19 Under Investigation 02/12/2025 02/12/2025 02/12/2025 4:07 PM CDT documented as of this encounter Care Teams Handicapped Teacher Relationship Specialty Start Date End Date Matthew Sorenson PA [address] [place] [address] PCP - General 02/02/22 Jose Luis Brooks MD [address] [place] [address] Health Editor/Oncologis t Hematology and Oncology 08/29/24 Abelardo Presley MD [facility] [place] [address] Hematology and Oncology 08/29/24 03/04/25 Bo Francisco MD [address] [place] [phone] Hematology and Oncology 08/29/24 03/04/25 Angie Rogers MD [address] [place] [phone] Physician Hematology and Oncology 08/29/24 03/04/25 Katie Gutierrez, PharmD 08/29/24 03/04/25 Jaja Rayo, RN Registered Nurse 08/29/24 03/04/25 Abimbola Waters, RECRUIT INSTRUCTOR-SKIMMER [address] [place] [phone] Nurse Practitioner Nurse Practitioner 08/29/24 03/04/25 Perri Dexter APRN-DIANNE [address] [place] [phone] Nurse Practitioner Nurse Practitioner 08/29/24 03/04/25 Marilyn Bennett, RN Coordinator 08/29/24 Erasmo Roberson, RN Registered Nurse 08/29/24 03/04/25 Alexandra Cota, RN Registered Nurse 08/29/24 03/04/25 Alda Braswell 08/29/24 03/04/25 Lucia Sharif, SPINDRAW OPERATOR Mule Spinner 08/29/24 03/04/25 documented as of this encounter
--- OUTSIDE RECORDS SUMMARY | 2025-05-27 19:02 | XMS_ITS | Encounter Summary ---
Author Organization [facility] Address [address] [facility] [place] [address] Care Team Providers Care Panel Cutter Name Role Phone Matthew Sorenson Primary Care Provider [phone] Jose Luis Brooks MD Unavailable [phone] Abelardo Presley MD Unavailable [phone] Bo Francisco MD Unavailable [phone] Angie Rogers MD Unavailable Katie GutierrezD Unavailable Unavaila Jaja Casillas RN Unavailable Unavailable Abimbola Waters ROUGH AND TRUEING MACHINE OPERATOR-CASH REGISTER MECHANIC Unavailable Perri Dexter ROUGH AND TRUEING MACHINE OPERATOR-CASH REGISTER MECHANIC Unavailable [phone] Marilyn Bennett RN Unavailable Unavailable Erasmo Roberson RN Unavailable Unavailable Alexandra Cota RN Unavailable Unavailable Alda Braswell Unavailable Unavailable Lucia Sharif LCSW Unavailable Unavailab le Reason for Visit * Reason Onset Date Comments MEDICATION REFILL 10/20/2024 Encounter Details Date Type Department Care Team (Late st Contact Info) Description 10/20/2024 Refill [facility] [address] [place] [address] Gina Denton MD [address] [place] [address] MEDICATION REFILL Social History Tobacco Use Types [...] place to sleep or slept in a alf (including now)? No 06/04/2024 Housing Stability Vital [...] the past 12 m [facility], were you homeless or living in a alf (including now)? 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 Gender Identity Not on file Sexual [...] Visit [facility] - Infectious Disease [address] [place] [address], [facility] [place] [address] Cristian Mcmillan MD [address] [place] [phone] documented as of this encounter Visit Diagnoses Not on filedocumented in this encounter Additional Health Concerns Infection Onset Date Last Indicated Resolved Time 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 CDIFF Under Investigation 01/13/2025 01/13/2025 7:19 PM CDT COVID-19 Under Investigation 01/13/2025 01/13/2025 01/13/2025 4:01 PM CDT COVID-19 Under Investigation 02/12/2025 02/12/2025 02/12/2025 4:07 PM CDT documented as of this encounter Care Teams Panel Cutter Relationship Specialty Start Date End Date Matthew Sorenson PA [address] [place] [address] PCP - General 02/02/22 Jose Luis Brooks MD [address] [place] [phone] Mud Tank Operator/Oncologis t Hematology and Oncology 08/29/24 Abelardo Presley MD [address] [place] [address] Hematology and Oncology 08/29/24 03/04/25 Bo Francisco MD [address] [place] [phone] Hematology and Oncology 08/29/24 03/04/25 Angie Rogers MD [address] [place] [phone] Physician Hematology and Oncology 08/29/24 03/04/25 Katie Gutierrez, PharmD 08/29/24 03/04/25 Jaja [place]o, RN Registered Nurse 08/29/24 03/04/25 Abimbola Waters, DAYNA-CASH REGISTER MECHANIC [address] [place] [address] Nurse Practitioner Nurse Practitioner 08/29/24 03/04/25 Perri Dexter APRN-CASH REGISTER MECHANIC [address] [place] [phone] Nurse Practitioner Nurse Practitioner 08/29/24 03/04/25 Marilyn Bennett, RN Coordinator 08/29/24 Erasmo Roberson, RN Registered Nurse 08/29/24 03/04/25 Alexandra Cota, RN Registered Nurse 08/29/24 03/04/25 Alda Braswell 08/29/24 03/04/25 Lucia Sharif LCSW Supervisor Hide House 08/29/24 03/04/25 documented as of this encounter
--- OUTSIDE RECORDS SUMMARY | 2025-05-27 19:02 | XMS_ITS | Clinical Summary ---
Author Organization [facility] Address [address] [address] Phone Care Team Providers Care Deputy Probation Officer Name Role Phone Imanquentin Matthew Bebe RAWLS Primary Care Provider [phone] Social History Tobacco Use Types Packs/Day Years Used Date Smoking Tobacco: Never Assessed Sex and Gender Information Value Date Recorded Sex Assigned at Not on file Legal Sex Male 9:21 PM CDT Gender Identity Not on file Sexual Orientation Not on file Plan of Treatment Upcoming Encounters Date Type Department Care Team (Late st Contact Info) Description 06/16/2025 7:30 AM CDT Hospital Encounter [facility] Periop [address] [place] [phone] Kenneth Wayne MD [address] [address] 06/16/2025 7:30 AM CDT - 06/16/2025 8:00 AM CDT Surgery [facility] Periop [address] [place] [address] Kenneth Wayne MD [address] [address] COLONOSCOPY Scheduled Procedures Name Priority Associated Diagnoses [...] Insurance MEDICAID [employer] Care Teams Deputy Probation Officer Relationship Specialty Start Date End Date Matthew Sorenson PAC [address] [place] [address] PCP - General Physician Electrologist 04/27/25
--- OUTSIDE RECORDS SUMMARY | 2025-05-27 19:02 | XMS_ITS | Referral Summary ---
Author Organization [facility] Address [address] [place] [address] Care Team Providers Care Grocery Supervisor Name Role Phone Matthew Sorenson Primary Care Provider [phone] Matthew Sorenson Unavailable [phone] Encounters Date Type Department Care Team Description 04/06/2025 Telephone [facility] Bone Marrow Transplant [address] [place] [phone] Agnes Hawkins RN 04/06/2025 7:45 AM CDT Lab [facility] - Lab Collection [address] [place] [id number] Multiple myeloma not having achieved remission (HCC) 04/06/2025 8:00 AM CDT Lab [facility] Oncology Lab [address] [place] [phone] 04/06/2025 9:00 AM CDT Office Visit [facility]plant [address] [place] [address] [phone] David Santiago MD Multiple myeloma, remission status unspecified (HCC) 03/25/2025 Orders Only [facility] Bone [facility]row Transplant [address] [place] [address] [phone] David Santiago MD Multiple myeloma not having [...] on file 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 Results from different manufacturers or methods may not be comparable. Serial testing should be performed using the same methods and instrumentation. Current Interpretive Data was last revised on 2023. Cecil free light chain [facility] 1.45 0.33 - 1.94 mg/dL USMAN [facility] Comment: Interpretive Data The Binding Site FreeLite assay procedure was used. Results from different manufacturers or methods may not be comparable. Serial testing should be performed using the same methods and instrumentation. Current Interpretive Data was last revised on 2023. Lambda free light chain [facility] 1.09 0.57 - 2.63 mg/dL [facility] Comment: Interpretive Data The Binding Site FreeLite assay procedure was used. Results from different manufacturers or methods may not be comparable. Serial testing should be performed using the same methods and instrumentation. Current Interpretive Data was last revised on 2023. Blood 04/06/2025 8:04 AM CDT 04/06/2025 9:12 AM CDT us David Santiago MD LAB BLOOD ORDERABLES Final Resul t [facility] Department [place] [address] * (ABNORMAL) CBC with auto differential (04/06/2025 8:04 AM CDT) WBC 7.11 3.80 - 9.90 K/cumm Comment:Testing performed by : [facility], [address] [place] [address] Hgb 16.0 13.0 - 17.5 g/dL CERNER BJ Comment:Testing performed by : [facility], [address] [place], [place] [phone] Hct 47.8 38.9 - 50.3 % CERNER BJ Comment:Testing performed by : [facility], [address] [place], [place] [phone] Plt 257 150 - 400 K/cumm CERNER BJ Comment:Testing performed by : [facility], [address] [place] [address] MPV 9.1 6.8 - 10.4 fL CERNER BJ Comment:Testing performed by : [facility], [address] [place], [place] [phone] RBC 5.72 4.30 - 5.80 M/cumm CERNER BJ Comment:Testing performed by : [facility], [address] [place], [place] [phone] MCV 83.6 81.3 - 96.4 fL CERNER BJ Comment:Testing performed by : [facility], [address] [place] [address] MCH 28.0 27.1 - 33.3 pg CERNER BJ Comment:Testing performed by : [facility], [address] [place] [address] MCHC 33.5 32.3 - 35.7 g/dL CERNER BJ Comment:Testing performed by : [facility], [address] [place] [address] RDW CV 15.1(H) 11.1 - 14.9 % CERNER BJ Comment:Testing performed by : [facility], [address] [place] [address] NRBC abs 0.00 0.00 - 0.01 K/cumm CERNER BJ Comment:Testing performed by : [facility], [address] [place] [address] Blood 04/06/2025 8:04 AM CDT 04/06/2025 8:09 AM CDT us David Santiago MD LAB BLOOD ORDERABLES Edited Resu lt - Final USMAN PHILLIPS [facility] Department [place] [address] * (ABNORMAL) Manual Differential (04/06/2025 8:04 AM CDT) Cells Counted 200 Comment:Testing performed by : [facility], [address] [place] [phone] Neutrophil abs 2.84 1.50 - 6.50 K/cumm USMAN PHILLIPS Comment:Testing performed by : [facility], [address] [place] [phone] Lymphocyte abs 2.56 0.80 - 3.30 K/cumm USMAN PHILLIPS Comment:Testing performed by : [facility], [address] [place] [phone] Monocyte abs 0.71 0.20 - 0.80 K/cumm USMAN PHILLIPS Comment:Testing performed by : [facility], [address] [place] [phone] Eosinophil abs 0.50 0.00 - 0.50 K/cumm USMAN PHILLIPS Comment:Testing performed by : [facility], [address] [place] [phone] Basophil abs 0.21(H) 0.00 - 0.10 K/cumm USMAN PHILLIPS Comment:Testing performed by : [facility], [address] [place] [phone] Neutrophil pct 40.0 % CERDOMINIQUE PHILLIPS Comment: Interpretive Data Percent cell count reference ranges are not reported, since discordance with absolute values may lead to misinterpretation of CBC data. Current Interpretive Data was last revised on 2018. Testing performed by: [facility], [address] [place] [phone] Lymphocyte pct 36.0 % USMAN PHILLIPS Comment: Interpretive Data Percent cell count reference ranges are not reported, since discordance with absolute values may lead to misinterpretation of CBC data. Current Interpretive Data was last revised on 2018. Testing performed by: [facility], [address] [place] [phone] Monocyte pct 10.0 % [facility] Comment: Interpretive Data Percent cell count reference ranges are not reported, since discordance with absolute values may lead to misinterpretation of CBC data. Current Interpretive Data was last revised on 2018. Testing performed by: [facility], [address] [place] [address] Eosinophil pct 7.0 % [facility] Comment: Interpretive Data Percent cell count reference ranges are not reported, since discordance with absolute values may lead to misinterpretation of CBC data. Current Interpretive Data was last revised on 2018. Testing performed by: [facility], [address] [place] [phone] Basophil pct 3.0 % [facility] Comment: Interpretive Data Percent cell count reference ranges are not reported, since discordance with absolute values may lead to misinterpretation of CBC data. Current Interpretive Data was last revised on 2018. Testing performed by: [facility], [address] [place] [phone] Myelocyte pct 1.0(H) 0.0 - 0.0 % [facility] Comment:Testing performed by : [facility], [address] [place] [phone] Variant lymph pct 5.0(H) 0.0 - 0.0 % [facility] Comment:Testing performed by : [facility], [address] [place] [phone] RBC morphology Normal [facility] Comment:Testing performed by : [facility], [address] [place] [phone] Platelet estimate Adequate [facility] Comment:Testing performed by : [facility], [address] [place] [phone] Blood 04/06/2025 8:04 AM CDT 04/06/2025 8:09 AM CDT us David Santiago MD LAB BLOOD ORDERABLES Final Resul t Performing Organization Address [facility] Co de Phone Number [facility] Department [place] [address] * Protein electrophoresis with reflex, serum with interpretation (04/06/2025 8:04 AM CDT) Protein, sr 6.8 6.2 - 8.2 g/dL Albumin 4.3 3.2 - 5.0 g/dL [facility] Alpha-1 globulin 0.3 0.2 - 0.4 g/dL [facility] Alpha-2 globulin 1.0 0.5 - 1.0 g/dL [facility] Beta-1 globulin 0.4 0.3 - 0.6 g/dL [facility] Beta-2 globulin 0.3 0.2 - 0.6 g/dL [facility] Gamma globulin 0.5 0.5 - 1.7 g/dL [facility] SPEP interp Please see comment [facility] Comment: No apparent monoclonal peak Reviewed and signed by Jonatan Astorga MD, PhD 04/07/2025 Blood 04/06/2025 8:04 AM CDT 04/06/2025 9:12 AM CDT us David Santiago MD LAB BLOOD ORDERABLES Final Resul t Performing Organization Address [facility] Co de Phone Number [facility] Department [place] [address] * eGFR (04/06/2025 7:04 AM CDT) eGFR [...] ORDERABLES Final Resul t Performing Organization Address [facility] Co de Phone Number [facility] Department [place] [employer] [place] [address] * Lactate dehydrogenase (LD) (04/06/2025 7:04 AM CDT) Lactate dehydrogenase (LDH) 142 100 - 250 Units/L Blood 04/06/2025 7:04 AM CDT 04/06/2025 8:10 AM CDT David Santiago MD LAB BLOOD ORDERABLES Final Resul t Performing Organization Address [facility] Co de Phone Number [facility] Department [place] [address] * (ABNORMAL) IgA (04/06/2025 7:04 AM CDT) Immunoglobulin A <50(L) 70 - 400 mg/dL Blood 04/06/2025 7:04 AM CDT 04/06/2025 8:31 AM CDT David Santiago MD LAB BLOOD ORDERABLES Final Resul t Performing Organization Address [facility] Co de Phone Number [facility] Department [place] [address] * (ABNORMAL) IgM (04/06/2025 7:04 AM CDT) Immunoglobulin M <25(L) 40 - 230 mg/dL Blood 04/06/2025 7:04 AM CDT 04/06/2025 8:31 AM CDT us David Santiago MD LAB BLOOD ORDERABLES Final Resul t Performing Organization Address [facility] Co de Phone Number USMAN [facility] [employer] [place] [address] * (ABNORMAL) IgG (04/06/2025 7:04 AM CDT) Immunoglobulin G 600(L) 700 - 1,600 mg/dL Blood 04/06/2025 7:04 AM CDT 04/06/2025 8:31 AM CDT us David Santiago MD LAB BLOOD ORDERABLES Final Resul t Performing Organization Address [facility] [place] [address] * (ABNORMAL) Beta 2 microglobulin, serum (04/06/2025 7:04 AM CDT) Pathologist [facility] Beta 2 Microglobulin, Serum 2.60(H) 1.00 - 2.50 mg/L Comment: Interpretive Data The Nahum Beta-2 microglobulin assay procedure was used. Results from different manufacturers or methods may not be comparable. Serial testing should be performed using the same method. Blood 04/06/2025 7:04 AM CDT 04/06/2025 8:31 AM CDT us David Santiago MD LAB BLOOD ORDERABLES Final Resul t Performing Organization Address [facility] Co de Phone Number [facility] [place] [address] * (ABNORMAL) Comprehensive metabolic panel (04/06/2025 7:04 AM CDT) Sodium 140 135 - 145 mmol/L Potassium, pl 3.9 3.3 - 4.9 mmol/L [facility] Chloride 106 97 - 110 mmol/L [facility] CO2 23 22 - 32 mmol/L [facility] Anion gap 11 2 - 15 mmol/L [facility] BUN 15 6 - 25 mg/dL [facility] Creatinine 0.81 0.80 - 1.30 mg/dL [facility] Glucose 169 70 - 199 mg/dL [facility] Comment: Interpretive Data Fasting glucose >/= [...] 2022. Calcium 9.6 8.5 - 10.3 mg/dL [facility] Bilirubin, total 0.2 0.1 - 1.2 mg/dL [facility] Protein, pl 7.1 6.5 - 8.5 g/dL [facility] Albumin 4.4 3.5 - 5.0 g/dL [facility] Alk phos 199(H) 40 - 130 Units/L [facility] ALT 36 7 - 55 Units/L [facility] AST 19 10 - 50 Units/L [facility] Blood 04/06/2025 7:04 AM CDT 04/06/2025 8:10 AM CDT us David Santiago MD LAB BLOOD ORDERABLES Final Resul t [facility] Department [place] [address] from Last 3 Months Insurance [facility] Care Teams Grocery Supervisor Relationship Specialty Start Date End Date Matthew Sorenson PA [address] [place] [address] PCP - General Family Practice 05/04/23 Matthew Sorenson PA [address] [place] [address] Family Practice 09/12/22
--- OUTSIDE RECORDS SUMMARY | 2025-05-27 19:02 | XMS_ITS | Encounter Summary ---
Author Organization [facility] Address [address] [place] [address] Care Team Providers Care Licensed Tax Consultant Name Role Phone Matthew Sorenson Primary Care Provider [phone] Jose Luis Brooks MD Unavailable [phone] Abelardo Presley MD Unavailable Bo Francisco MD Unavailable [phone] Angie Rogers MD Unavailable Katie GutierrezD Unavailable Unavaila Jaja Casillas RN Unavailable Unavailable Abimbola Waters BALLET DANCER-OIL PIPE INSPECTOR HELPER Unavailable [phone] Perri Dexter BALLET DANCER-OIL PIPE INSPECTOR HELPER Unavailable [phone] Marilyn Bennett RN Unavailable Unavailable Erasmo Roberson RN Unavailable Unavailable Alexandra Cota RN Unavailable Unavailable Alda Braswell Unavailable Unavailable Lucia Sharif LCSW Unavailable Unavailab le Reason for Referral * (Routine) - Open Specialty Diagnoses / Procedures Referred By Contac t Referred To Contact Procedures Follow up with provider Juan Valencia MD [address] [place] [address] Phone: tel: fax: Referral ID Status Reason Start Date Expiration Date Visits Re quested Visits Authorized [id number] Open 02/19/2025 02/19/2026 1 1 * Radiology Services (Routine) - Open Specialty Diagnoses / Procedures Referred By Contac t Referred To Contact Diagnoses Hepatitis C virus infection without hepatic coma, unspecified chronicity History of multiple myeloma Procedures CT US Guided Needle Placement IR Perc Liver Biopsy Juan Valencia MD [address] [facility] [address] [place] [address] Phone: tel: fax: [facility] [address] [place] [address] Phone: tel: Referral ID Status Reason Start Date Expiration Date Visits Re quested Visits Authorized [id number] Open 02/19/2025 02/19/2026 1 1 Reason for Visit * Auth/Cert (Routine) Specialty Diagnoses / Procedures Referred By Contac t Referred To Contact Diagnoses Chronic hepatitis C without hepatic coma (HCC) Transaminitis Chronic hepatitis C without hepatic coma (HCC) [B18.2] Transaminitis [R74.01] Procedures CO US GUIDED NEEDLE PLACEMENT BIOPSY LIVER (NEEDLE/PERCUTANEOUS) Referral ID Status Reason Start Date Expiration Date Visits Re quested Visits Authorized [id number] 1 1 Encounter Details Date Type Department Care Team (Latest Contact Info) Description 02/19/2025 11:37 AM CDT Hospital Encounter [facility] IVR [address] [place] [phone] Juan Valencia MD [facility] [facility] [address]L [place] [address] [facility] Radiology Social History Tobacco Use Types [...] Recorded Patient Health Questionnaire-2 Score 0 11/20/2024 [facility] - [...] any time in the past 12 m [facility], were you homeless or living in a longterm (including now)? 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 Callum Guerrero MD Stone Setter Vascular & Interventional Radiology 02/20/2025 5:30 AM documented in this encounter Miscellaneous Notes * Clinical References AVS - Richie Alejandro RN - 02/19/2025 1:22 PM CDT Images from the original note were not included. [address]10 Liver Biopsy A liver biopsy is when [...] naproxen. ?? Medicines for heart conditions ?? [id number] medicines ?? All prescription medicines ?? Illegal [...] belly Last Reviewed Date: 2023 00:00:00 ?? [id number] The [employer]. All rights reserved. This information is not intended as a substitute for professional medical care. Always follow your healthcare professional's instructions. documented in this encounter Plan of Treatment Upcoming Encounters Date Type Department Care Team (Late st Contact Info) Description 05/28/2025 2:30 PM CDT Office Visit [facility] - Infectious Disease [address] [place] [address], [place] [address] Cristian Mcmillan MD [address] [place] [phone] documented as of this encounter Procedures Procedure [...] evaluation, please review the evaluation forms in [facility]. For details on monitored clinical parameters during the intra-service sedation time, please review the procedure nurse documentation in [facility]. > Dictated by Seng Gaston MD (Master Fisher) 02/19/2025 12:59 PM ICallum MD have personally [...] response to care. Intra-service sedation start time [id number] hours and end time was 1236 hours during which I was present. Total physician intra-service sedation time was 30 minutes. For details on pre moderate sedation and post moderate sedation patient evaluation, please review the evaluation forms in [facility]. For details on monitored clinical parameters during the intra-service sedation time, please review the procedure nurse documentation in [facility]. > Dictated by Seng Gaston MD (Master Fisher) 02/19/2025 12:59 PM ICallum MD have personally reviewed and interpreted this examination/study. > Interpreting Provider: Callum Guerrero MD on 02/24/2025 5:33 PM Juan Valencia MD CT ORDERABLES Final Result * PATHOLOGY TISSUE (02/19/2025 12:34 PM CDT) Case Report Surgical Pathology Report Case: [id number] Authorizing Provider: Juan Valencia MD Collected: 02/19/2025 12:34 PM Ordering Location: [facility] IVR Received: 02/19/2025 01:06 PM Pathologist: Sammi Escalante MD Specimen: Liver Needle Biopsy, liver bx 02/20/2025 3:50 PM CDT [facility] Final Diagnosis Liver, biopsy (A): - Chronic hepatitis with minimal-mild activity - Steatosis and lobular inflammation without ballooning - Cirrhosis, see comment 02/20/2025 3:50 PM CDT [facility] at 1550 CDT Microscopic Description [...] 8 (steatosis-1, inflammation-1, ballooning-0). 02/20/2025 3:50 PM [facility] Clinical History The patient is a 44-year-old man with history of hepatitis C infection and appearance of cirrhosis on diagnostic imaging. Operative procedure: Ultrasound-guided random core liver biopsy 02/20/2025 3:50 PM [facility] Gross Description The requisition and specimen(s) are identified with the patient's name, Joselito Nguyen. Received in formalin, specimen A, are two baldwin-pink needle cores, 1.7 and 1.0 cm, both 0.1 cm diameter, submitted in toto in cassette A1. IKD 02/20/2025 3:50 PM [facility] PATH[facility] Pathologist Location at [facility] 02/20/2025 3:50 PM [facility] PATH[facility] LAB Disclaimer The performance characteristics of all immunohistochemical and indirect immunofluorescence stains (if any) cited in this report were determined by the Histopathology Laboratory of [facility]. Some of these tests were developed [...] attending (teaching) pathologist. 02/20/2025 3:50 PM CDT [facility] Collected By Balbir Rdz RN 3:50 PM CDT [facility] Embedded Images 02/20/2025 3:50 PM CDT [facility] Pathology/Cytolo gy NEEDLE BIOPSY OF LIVER / Unknown Collection / Unknown 02/19/2025 12:34 PM CDT 02/19/2025 1:06 PM CDT Comment:LIVER NEEDLE BIOPSY Juan Valencia MD LAB - PATHOLOGY/CYTOLOGY ORDER LISSETH Final Result [facility] [address] [phone] documented in this encounter Visit Diagnoses Diagnosis [...] documented as of this encounter Care Teams Licensed Tax Consultant Relationship Specialty Start Date End Date Matthew Sorenson PA [address] [place] [address] PCP - General 02/02/22 Jose Luis Brooks MD [address] [place] [address] Friction Saw Operator/Oncologis t Hematology and Oncology 08/29/24 Abelardo Presley MD [address] [place] [address] Hematology and Oncology 08/29/24 03/04/25 Bo Francisco MD [address] [place] [phone] Hematology and Oncology 08/29/24 03/04/25 Angie Rogers MD [address] [place] [phone] Physician Hematology and Oncology 08/29/24 03/04/25 Katie Gutierrez, PharmD 08/29/24 03/04/25 Jaja Rayo, RN Registered Nurse 08/29/24 03/04/25 Abimbola Waters APRN-DIANNE [address] [place] [phone] Nurse Practitioner Nurse Practitioner 08/29/24 03/04/25 Perri Dexter APRN-OIL PIPE INSPECTOR HELPER [address] [place] [phone] Nurse Practitioner Nurse Practitioner 08/29/24 03/04/25 Marilyn Bennett, RN Coordinator 08/29/24 Erasmo Roberson, RN Registered Nurse 08/29/24 03/04/25 Alexandra Cota, RN Registered Nurse 08/29/24 03/04/25 Alda Braswell 08/29/24 03/04/25 Lucia Sharif LCSW Traditional Maori Health Practitioner 08/29/24 03/04/25 documented as of this encounter
--- OUTSIDE RECORDS SUMMARY | 2025-05-27 19:02 | XMS_ITS ---
Author Organization [facility] Address [address] [facility] [place] [address] Care Team Providers Care Bindery Assistant Name Role Phone Matthew Sorenson Primary Care Provider [phone] Jose Luis Brooks MD Unavailable [phone] Marilyn Bennett RN Unavailable Unavailable Active Problems [...]
--- OUTSIDE RECORDS SUMMARY | 2025-05-27 19:02 | XMS_ITS | Clinical Summary ---
Author Organization [facility] Address [address] [place] [address] Care Team Providers Care Aging Box Hand Name Role Phone Matthew Sorenson Primary Care Provider [phone] Jose Luis Brooks MD Unavailable [phone] Marilyn Bennett RN Unavailable Unavailable Source Comments [facility],non-owned Affiliates and Associated Physician Practices is amultiple site organization consisting of ambulatory clinics and hospital sitesin [place], [place], [place]. This disclosure is being madepursuant to the Care Everywhere program and may not contain all information available regarding this patient. Last updated 18.[facility] Allergies Active Allergy Reactions Criticality Noted Date [...] verio strips, Reported on 02/26/2025 Continuous Glucose Roustabout Hand (Dexcom G7 Roustabout Hand) SONIA as directed Act khari Continuous Glucose [...] once daily Activ e TRUEplus 5-Bevel Pen [place] 31G X 6 MM [facility] USE TO INJECT INSULIN 3 TIMES DAILY [...] Team Description 05/04/2025 Refill [facility] [address] [place] [address] Perri Dexter, DAYNA-PHARMACY AIDE Refill Request 04/03/2025 Travel 03/26/2025 Refill [facility] [address] [place] [phone] Perri Dexter APRN-CNP Refill Request 03/24/2025 Refill [facility] [address] [place] [phone] Jose Luis Brooks MD Refill Request 03/18/2025 Travel 03/02/2025 10:18 AM CDT - 03/02/2025 11:59 PM CDT Hospital Encounter [facility] [address] [place] [phone] Jose Luis Brooks MD Kunkle, Kelly, APRN-CNP Discharge Disposition: Home or Self Care 02/26/2025 2:30 PM CDT Office Visit [facility] [address] [place] [phone] Jose Luis Brooks MD Stack, Matthew A, [...] Routine health maintenance 02/26/2025 Travel 02/26/2025 Telephone [facility] [address] [place] [phone] Eliza Solano RN Pre Authorization from Last [...] Recorded Patient Health Questionnaire-2 Score 0 11/20/2024 [facility] - Occupational [...] place to sleep or slept in a correction (including now)? No 06/04/2024 Housing Stability Vital Sign Answer Obed e Recorded In the last 12 months, was t here a time when you were not able to pay the mortgage or rent on time? Yes 11/23/2024 In the past 12 months, how m any times have you moved where you were living? 0 11/23/2024 At any time in the past 12 m [facility], were you homeless or living in a correction (including now)? No 11/23/2024 Sex and Gender Information Value Date Recorded Sex Assigned at Not on file Legal Sex Male 11:44 AM DRILL PRESS HAND Gender Identity Not on file Sexual Orientation [...] Visit [facility] [address] [place] [address], [facility] [phone] Cristian Mcmillan MD [facility] [place] [phone] Health Maintenance Due Date Last Done Comments [...] this topic Medical Devices Implanted Type Area Relief Charge Nurse Device Identifier Shelf Expiration Date Model / Serial / Lot Kit Spnl 5.8mm Spinejack Implanted:Qty: 1 on 07/22/2024 by Arya Rm MD at [facility] N/A: Spine Lumbar Dottie Spine 10/28/2024 [id number] / / [id number] Kit Bone Cmnt Vertaplex Hv Autoplex Wo Implanted:Qty: 1 on 07/22/2024 by Arya Rm MD at [facility] N/A: Spine Lumbar Dottie Spine 05/29/2025 [id number] / / [id number] Port Implinfn Powerport Clrvu Argd Nya Implanted:Qty: 1 on 08/20/2024 by Vic Callahan MD at [facility] Right: Chest Wall Bard Peripheral Vascular 08/28/2025 [id number] / / [id number] Mixer Bone Cmnt Kyphon C20gm Ll Fit Implanted:Qty: 1 on 12/02/2024 by Arya Rm MD at [facility] N/A: Spine Lumbar Kyphon Inc [id number] / / Cmnt Bone Hv-R Kphx Mxr Grad Mrk Dspns Implanted:Qty: 1 on 12/02/2024 by Arya Rm MD at [facility] N/A: Spine Lumbar Kyphon Inc [id number] / / Graft Bone Grftn Dbm Plif 10x2.5cm Implanted:Qty: 1 on 12/02/2024 by Arya Rm MD at [facility] N/A: Spine Lumbar Osteotech Inc [id number] / / Ezekiel Spnl 500mm 5.5mm Cd Hzn Str Ti Ln Cp Implanted:Qty: 1 on 12/02/2024 by Arya Rm MD at [facility] N/A: Spine Lumbar Medtronic Inc [id number] / / Graft Bone Grftn Dbm Aspt 5x2.5cm Post Implanted:Qty: 1 on 12/02/2024 by Arya Rm MD at [facility] N/A: Spine Lumbar Medtronic Inc [id number] / / Screw Set Ti Spnl Brk Off Cd Hzn Nonster Implanted:Qty: 8 on 12/02/2024 by Arya Rm MD at [facility] N/A: Spine Lumbar Medtronic Inc [id number] / / Screw 7.5mm 55mm Ma Spne Solera Cd Hzn Implanted:Qty: 2 on 12/02/2024 by Arya Rm MD at [facility] N/A: Spine Lumbar Medtronic Inc [id number] / / Screw 7.5mm 50mm Ma Spne Solera Cd Hzn Implanted:Qty: 6 on 12/02/2024 by Arya Rm MD at [facility] Medtronic Inc [id number] / / Slnt Dura Duraseal Pg Trilysine Amine 5 Implanted:Qty: 1 on 12/02/2024 by Arya Rm MD at [facility] N/A: Spine Lumbar Integra N4G.comciAnchiva Systems Thang [id number] / / Explanted Type Area Relief Charge Nurse Device Identifier Shelf Expiration Date Model / Serial / Lot Kit Osteocool Srg 10ga Bone Acc Explanted:Qty: 2 on 07/22/2024 by Arya Rm MD at [facility] N/A: Spine Lumbar Medtronic Inc [id number] / / [id number] Description:Access device, n ot an implant. No other options in system Probe 17ga 20mm Rf Eltx Osteocool 2mm Explanted:Qty: 1 on 07/22/2024 by Arya Rm MD at [facility] N/A: Spine Lumbar Medtronic Inc 03/26/2027 [id number] / / [id number] Description:Access device, n ot an implant. No other options in system Procedures Procedure Name Priority Date/Time Associated Diagnosis Comments COMPREHENSIVE METABOLIC PANEL STAT 02/12/2025 10:35 AM CDT Multiple myeloma not having achieved remission (HCC) HEPATITIS C GENOTYPE Routine 12/18/2024 2:53 PM DRILL PRESS HAND Chronic hepatitis C without hepatic coma MICROALB/CREAT [...] - 26 mg/dL 02/12/2025 11:13 AM CDT [facility] Creatinine 0.77 0.71 - 1.16 mg/dL 02/12/2025 11:13 AM CDT [facility] Sodium 142 136 - 145 mmol/L 02/12/2025 11:13 AM [facility] Potassium 4.3 3.5 - 4.5 mmol/L 02/12/2025 11:13 AM [facility] Chloride 107 98 - 107 mmol/L 02/12/2025 11:13 AM [facility] CO2 20(L) 22 - 29 mmol/L 02/12/2025 11:13 AM [facility] Glucose 150(H) 70 - 99 mg/dL 02/12/2025 11:13 AM [facility] Calcium 10.0 8.4 - 10.2 mg/dL 02/12/2025 11:13 AM [facility] Protein Total 8.2 6.0 - 8.3 g/dL 02/12/2025 11:13 AM [facility] Albumin 4.6 3.4 - 5.0 g/dL 02/12/2025 11:13 AM [facility] Bilirubin Total 0.3 0.2 - 1.2 mg/dL 02/12/2025 11:13 AM [facility] Alkaline Phosphatase 214(H) 40 - 150 U/L 02/12/2025 11:13 AM [facility] ALT 24 5 - 55 U/L 02/12/2025 11:13 AM [facility] AST 13 5 - 34 U/L 02/12/2025 11:13 AM [facility] Anion Gap 15 6 - 16 02/12/2025 11:13 AM [facility] BUN/Creatinine Ratio 22 7 - 23 02/12/2025 11:13 AM [facility] Osmolality Calculated 298(H) 275 - 295 mOsm/kg 02/12/2025 11:13 AM [facility] Albumin/Globulin Ratio 1.3 1.1 - 2.3 02/12/2025 11:13 AM [facility] eGFR by CKD-EPI >90 >=90 mL/min/1.7 3 m2 02/12/2025 11:13 AM [facility] Blood BLOOD SPECIMEN / Unknown Venipuncture / Unknown 02/12/2025 10:35 AM CDT 02/12/2025 10:48 AM CDT Perri Dexter [facility] - CHEMISTRY ORDERABLES Final Result [facility] [address] [address], [facility] [phone] * HEPATITIS C GENOTYPE (12/18/2024 2:53 PM DRILL PRESS HAND) Hepatitis C Genotype 3a 12/23/2024 7:28 AM DRILL PRESS HAND [facility] ([facility]) Comment: INTERPRETIVE INFORMATION: Hepatitis C Genotyping Hepatitis C viral RNA is tested using reverse filter tip inspector polymerase chain reaction (RT-PCR) to amplify a specific portion of the 5' untranslated region (5' UTR) of the viral genome. The amplified nucleic acid is sequenced bidirectionally using dye-terminator chemistry (SaludFÁCIL). Sequencing data is compared to a database [...] developed and its performance characteristics determined by [facility]. It has not been cleared or approved by the U.S. Food and Drug Administration. This test was performed in a CLIA-certified laboratory and is intended for clinical purposes. Performed By: [facility] [address] [place] [address] Yardage Control Operator Forming: Jake Clemons MD, PhD CLIA Number: [id number] Blood BLOOD SPECIMEN / Unknown Lab Venipuncture / Unknown 12/18/2024 2:53 PM DRILL PRESS HAND 12/18/2024 3:25 PM DRILL PRESS HAND Cristian Mcmillan MD LAB - CHEMISTRY ORDERABLES Fi nal Result [facility]) [address] [place] [address], [facility] * MICROALB/CREAT RATIO URINE RANDOM PANEL (06/28/2024 6:31 AM CDT) Albumin Random Urine <5.0 Not Established ug/mL 06/28/2024 9:49 PM [facility] Creatinine Urine 82.62 Not Established mg/dL 06/28/2024 9:49 PM [facility] Urine Albumin/Creati nine Ratio <6 <30 mg/g 06/28/2024 9:49 PM [facility] Albumin/Creati nine Ratio Urine See Comment <30 mg/g 06/28/2024 9:49 PM [facility] Comment:Unable to calculate the Urine Albumin/Creatinine Ratio due to one or more analyte concentration(s) being outside the measuring limits of the instrument. Urine URINE SPECIMEN OBTAINED BY CLEAN CATCH PROCEDURE / Unknown Collection / Unknown 06/28/2024 6:31 AM CDT 06/28/2024 7:54 PM CDT Robb Gomez MD LAB - URINE CHEMISTRY ORDERA BLES Final Result [facility] [address] [place] [address], [facility] [phone] * (ABNORMAL) HEMOGLOBIN A1C [IN-HOUSE TEST] (06/28/2024 2:10 AM CDT) Pathologist [facility] Hemoglobin A1c 9.1(H) <=5.6 % 06/28/2024 9:26 AM [facility] Estimated Average Glucose 214 mg/dL 06/28/2024 9:26 AM [facility] Comment: HbA1c Interpretation: Normal : < 5.7% Pre-diabetes: 5.7-6.4% Diabetes: Equal to or greater than 6.5% Test results diagnostic of diabetes should be repeated for confirmation. Treatment target values recommended by ADA and other clinical organizations should be used to evaluate metabolic control in patients. Reference: [place] [employer], Standards of Care in Diabetes [...] CDT 06/28/2024 2:21 AM CDT Hayleyoctavio Lopez MAJOR LEAGUE BASEBALL PLAYER-PHARMACY AIDE LAB - CHEMISTRY ORDER LISSETH Final Result Performing Organization Address City/[facility]/ZIP Co de Phone Number [address] [address], [facility] [phone] * HIV-1 HIV-2 ANTIBODY + HIV P24 AG PANEL (06/06/2024 11:59 AM CDT) HIV Antigen/Antibod y 1 & 2 Non-reacti ve Non-react khari 06/06/2024 12:58 PM CDT [facility] Comment:No Laboratory eviden ce of HIV infection. Blood BLOOD SPECIMEN / Unknown Lab Venipuncture / Unknown 06/06/2024 11:59 AM CDT 06/06/2024 12:07 PM CDT Gina Burt MD LAB - CHEMISTRY ORDERABLES Final Result Performing Organization Address [facility] Co de Phone Number [address] [address], [facility] [phone] from Last 3 Months or Most Recently Relevant to Health Maintenance Additional Health Concerns Infection Onset Date Last Indicated 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 [facility] Directives Documents on File Type Date Recorded Patient Post Framer Expl anation Adv Directive/Living Will/POA 08/13/2024 1:30 [...] 5:19 AM 07/26/2024 2:22 PM Care Teams Aging Box Hand Relationship Specialty Start Date End Date Matthew Sorneson PA [address] [place] [address] PCP - General 02/02/22 Jose Luis Brooks MD [address] [place] [address] Top Frame Maker/Oncologist Hematology and Oncology 08/29/24 Marilyn Bennett, RN Coordinator 08/29/24
--- NOTE | 2025-05-27 19:04 | PC.NURSE ---
PATIENT IS CURRENTLY IN XRAY
[2025-05-27] MEDS: fentaNYL CITRATE INJ (*CRX) 100 MCG/2 ML VIAL 50 MCG IM (19:12)
--- NOTE | 2025-05-27 19:17 | PC.NURSE ---
PATIENT HAS RETURNED FROM RADIOLOGY. AT THE BEDSIDE. MEDICATED PER MAR
--- NOTE | 2025-05-27 19:52 | PC.NURSE ---
PATIENT REPORTS THAT HIS PAIN HAS NOT GOTTEN BETTER WITH FENTANYL. DR VEGA HAS BEEN NOTIFIED
--- NOTE | 2025-05-27 20:05 | PC.NURSE ---
PATIENT VERY UNCOMFORTABLE ON STRETCHER. WANTS TO KNOW IF BLOOD WORK IS GOING TO BE DRAWN. CONCERNED WITH INFECTION. DR VEGA HAS BEEN NOTIFIED OF PAIN AND WIFES CONCERNS
--- NOTE | 2025-05-27 20:11 | PC.NURSE ---
DR VEGA AT THE BEDSIDE. PATIENT CRYING OUT WITH REPORTS OF PAIN
[2025-05-27] MEDS: HYDROmorphone HCL INJ (*CRX) 2 MG/ML VIAL 1 MG IM (20:17)
[2025-05-27 20:36] LABS: Hematocrit 47.9 % (40.0-54.0); Hemoglobin 15.8 g/dL (14.0-18.0); Immature Granulocyte Percent A 0.2 % (0.0-0.0); Lymphocytes Absolute Auto 4.39 K/mm3 (1.10-4.50); Mean Corpuscular HGB Conc 33.0 g/dL (32-36); Mean Corpuscular Hemoglobin 28.6 pg (27.0-31.0); Mean Corpuscular Volume 86.8 fL (78.0-102.0); Nucleated Red Blood Cells Absolute Auto 0.00 K/mm3 (0.00-0.00); Nucleated Red Blood Cells Perc 0.0 % (0-0.0); Platelet Count Result 219 K/mm3 (150-420); Red Blood Count 5.52 M/mm3 (4.70-6.10); White Blood Count 11.2 K/mm3 (4.8-10.8)
[2025-05-27 20:48] LABS: Alanine Aminotransferase 25 U/L (6-50); Albumin Level 4.5 g/dL (3.5-5.1); Alkaline Phosphatase 100 U/L (38-126); Anion Gap 7 mmol/L (4-12); Aspartate Amino Transferase 28 U/L (17-59); Bilirubin,Total 0.4 mg/dL (0.2-1.3); Blood Urea Nitrogen 14 mg/dL (9-20); Calcium 8.9 mg/dL (8.4-10.2); Carbon Dioxide 24 mmol/L (22-30); Chloride 108 mmol/L (98-107); Estimated CRCL calculation 106 ml/min; Estimated Glomerular Filt Rate > 60; Glucose 105 mg/dL (65-110); Osmolality Calculated 288 mOsm/kg (285-295); Potassium 3.8 mmol/L (3.4-5.0); Sodium 139 mmol/L (137-145); Total Protein 6.8 g/dL (6.3-8.2)
[2025-05-27 20:49] LABS: INR 1.0; Prothrombin Time 10.6 Seconds (9.50-12.1)
[2025-05-27 21:03] LABS: CRP < 0.5 mg/dL (<1.0)
--- NOTE | 2025-05-27 21:28 | PC.NURSE ---
BLADDER SCAN COMPLETED. [address] VEGA NOTIFIED
[2025-05-27 21:38] VITALS: BP 140/76; PULSE 65; RESP 18; TEMP 36.9; O2SAT 99
[2025-05-27] MEDS: HYDROmorphone HCL INJ (*CRX) 2 MG/ML VIAL 0.5 MG IM (22:14)
== END 2025-05-27 22:00 | disposition short-term general hospital (02) ==
PROVIDERS: Emergency Provider Internal Medicine Critical Care Medicine
DX: M51.9 Unspecified thoracic, thoracolumbar and lumbosacral intervertebral disc disorder (principal); M54.42 Lumbago with sciatica, left side; C90.00 Multiple myeloma not having achieved remission; E11.9 Type 2 diabetes mellitus without complications; F17.210 Nicotine dependence, cigarettes, uncomplicated; Z79.01 Long term (current) use of anticoagulants
CPT/HCPCS: 36415; 71045; 72131; 80053; 83605; 85025; 85610; 86140; 96372; 99285; J1171; J3010

== ENCOUNTER 2025-06-01 08:52 | Outpatient (CLI) | payer OTHER, SELFPAY ==
--- OUTSIDE RECORDS SUMMARY | 2025-06-01 09:06 | XMS_ITS | Clinical Summary ---
Author Organization [facility] Address [address] [place] [address] Care Team Providers Care Jewelry Racker Name Role Phone Matthew Sorenson Primary Care Provider [phone] Matthew Sorenson Unavailable [phone] Allergies Active Allergy Reactions Criticality Noted [...] Description 04/06/2025 9:00 AM CDT Office Visit [facility] [address] [place] [address] Floor 6 [place] [address] David Santiago MD Multiple myeloma, remission status unspecified (HCC) 04/06/2025 8:00 AM CDT Lab [facility] [address] [place] [address] Floor 6 [place] [address] 04/06/2025 7:45 AM CDT Lab [facility] - Lab Collection [facility] 6 [place] [address] Multiple myeloma not having achieved remission (HCC) 04/06/2025 Telephone [facility] [address] [place] [address] 6 [place] [address] Agnes Hawkins RN 03/25/2025 Orders Only [facility] [address] [place] [address] Floor 6 [place] [address] David Santiago MD Multiple myeloma not having [...] on file Legal Sex Male 10:04 AM SIDE FRAMER Gender Identity Not on file Sexual Orientation [...] chains (04/06/2025 8:04 AM CDT) Pathologist [facility] [place]/Lambda ratio [facility] 1.33 0.26 - 1.65 Comment: Interpretive Data The Binding Site FreeLite assay procedure was used. Results from different manufacturers or methods may not be comparable. Serial testing should be performed using the same methods and instrumentation. Current Interpretive Data was last revised on 2023. [place] free light chain [facility] 1.45 0.33 - 1.94 mg/dL USMAN [facility] Comment: Interpretive Data The Binding Site FreeLite assay procedure was used. Results from different manufacturers or methods may not be comparable. Serial testing should be performed using the same methods and instrumentation. Current Interpretive Data was last revised on 2023. Lambda free light chain [facility] 1.09 0.57 - 2.63 mg/dL USMAN PHILLIPS [...] ORDERABLES Final Resul t USMAN PHILLIPS One [facility] Department [place] [address] * (ABNORMAL) CBC with auto differential (04/06/2025 8:04 AM CDT) WBC 7.11 3.80 - 9.90 K/cumm Comment:Testing performed by : [facility], [address] [place] [address] Hgb 16.0 13.0 - 17.5 g/dL USMAN [facility] Comment:Testing performed by : [facility], [address] [place] [address] Hct 47.8 38.9 - 50.3 % USMAN PHILLIPS Comment:Testing performed by : [facility], [address] [place] [address] Plt 257 150 - 400 K/cumm USMAN PHILLIPS Comment:Testing performed by : [facility], [address] [place] [address] MPV 9.1 6.8 - 10.4 fL USMAN PHILLIPS Comment:Testing performed by : [facility], [address] [place] [address] RBC 5.72 4.30 - 5.80 M/cumm USMAN PHILLIPS Comment:Testing performed by : [facility], [address] [place] [address] MCV 83.6 81.3 - 96.4 fL USMAN PHILLIPS Comment:Testing performed by : [facility], [address] [place] [address] MCH 28.0 27.1 - 33.3 pg USMAN PHILLIPS Comment:Testing performed by : [facility], [address] [place] [address] MCHC 33.5 32.3 - 35.7 g/dL USMAN PHILLIPS Comment:Testing performed by : [facility], [address] [place] [address] RDW CV 15.1(H) 11.1 - 14.9 % USMAN PHILLIPS Comment:Testing performed by : [facility], [address] [place] [address] NRBC abs 0.00 0.00 - 0.01 K/cumm USMAN PHILLIPS Comment:Testing performed by : [facility], [address] [place] [address] Blood 04/06/2025 8:04 AM CDT 04/06/2025 8:09 AM CDT us David Santiago MD LAB BLOOD ORDERABLES Edited Resu lt - Final USMAN PHILLIPS One [facility] Department of Laboratories [place], [place] [id number] * (ABNORMAL) Manual Differential (04/06/2025 8:04 AM CDT) Cells Counted 200 Comment:Testing performed by : [facility], [address] [place] [address] Neutrophil abs 2.84 1.50 - 6.50 K/cumm USMAN PHILLIPS Comment:Testing performed by : [facility], [address] [place] [address] Lymphocyte abs 2.56 0.80 - 3.30 K/cumm USMAN PHILLIPS Comment:Testing performed by : [facility], [address] [place] [phone] Monocyte abs 0.71 0.20 - 0.80 K/cumm [facility] Comment:Testing performed by : [facility], [address] [place] [phone] Eosinophil abs 0.50 0.00 - 0.50 K/cumm [facility] Comment:Testing performed by : [facility], [address] [place] [phone] Basophil abs 0.21(H) 0.00 - 0.10 K/cumm [facility] Comment:Testing performed by : [facility], [address] [place] [phone] Neutrophil pct 40.0 % [facility] Comment: Interpretive Data Percent cell count reference ranges are not reported, since discordance with absolute values may lead to misinterpretation of CBC data. Current Interpretive Data was last revised on 2018. Testing performed by: [facility], [address] [place] [phone] Lymphocyte pct 36.0 % [facility] Comment: Interpretive Data Percent cell count reference ranges are not reported, since discordance with absolute values may lead to misinterpretation of CBC data. Current Interpretive Data was last revised on 2018. Testing performed by: [facility], [address] [place] [phone] Monocyte pct 10.0 % [facility] Comment: Interpretive Data Percent cell count reference ranges are not reported, since discordance with absolute values may lead to misinterpretation of CBC data. Current Interpretive Data was last revised on 2018. Testing performed by: [facility], [address] [place] [phone] Eosinophil pct 7.0 % [facility] Comment: Interpretive Data Percent cell count reference ranges are not reported, since discordance with absolute values may lead to misinterpretation of CBC data. Current Interpretive Data was last revised on 2018. Testing performed by: [facility], [address] [place] [phone] Basophil pct 3.0 % [facility] Comment: Interpretive Data Percent cell count reference ranges are not reported, since discordance with absolute values may lead to misinterpretation of CBC data. Current Interpretive Data was last revised on 2018. Testing performed by: [facility], [address] [place], [place] [id number] Myelocyte pct 1.0(H) 0.0 - 0.0 % [facility]ER[facility]INIQUE [facility] Comment:Testing performed by : [facility], [address] [place], [place] [phone] Variant lymph pct 5.0(H) 0.0 - 0.0 % [facility] Comment:Testing performed by : [facility], [address] [place], [place] [phone] RBC morphology Normal [facility] Comment:Testing performed by : [facility], [address] [place], [place] [phone] Platelet estimate Adequate [facility] Comment:Testing performed by : [facility], [address] [place], [place] [phone] Blood 04/06/2025 8:04 AM CDT 04/06/2025 8:09 AM CDT us David Santiago MD LAB BLOOD ORDERABLES Final Resul t [facility] One [facility] Department [place] [address] * Protein electrophoresis with reflex, serum with interpretation (04/06/2025 8:04 AM CDT) Protein, sr 6.8 6.2 - 8.2 g/dL Albumin 4.3 3.2 - 5.0 g/dL [facility] Alpha-1 globulin 0.3 0.2 - 0.4 g/dL [facility] Alpha-2 globulin 1.0 0.5 - 1.0 g/dL [facility] Beta-1 globulin 0.4 0.3 - 0.6 g/dL [facility] Beta-2 globulin 0.3 0.2 - 0.6 g/dL [facility] Gamma globulin 0.5 0.5 - 1.7 g/dL [facility] SPEP interp Please see comment [facility] Comment: No apparent monoclonal peak Reviewed and signed by Jonatan Astorga MD, PhD 04/07/2025 Blood 04/06/2025 8:04 AM CDT 04/06/2025 9:12 AM CDT us David Santiago MD LAB BLOOD ORDERABLES Final Resul t Performing Organization Address City/[facility] Co de Phone Number [facility] Department [place] [address] * eGFR (04/06/2025 7:04 AM CDT) eGFR [...] ORDERABLES Final Resul t Performing Organization Address City/[facility]/ZIP Co de Phone Number [facility] Department [place] [address] * Lactate dehydrogenase (LD) (04/06/2025 7:04 AM CDT) Lactate dehydrogenase (LDH) 142 100 - 250 Units/L Blood 04/06/2025 7:04 AM CDT 04/06/2025 8:10 AM CDT David Santiago MD LAB BLOOD ORDERABLES Final Resul t Performing Organization Address [facility] de Phone Number [facility] [place] [address] * (ABNORMAL) IgA (04/06/2025 7:04 AM CDT) Immunoglobulin A <50(L) 70 - 400 mg/dL Blood 04/06/2025 7:04 AM CDT 04/06/2025 8:31 AM CDT David Santiago MD LAB BLOOD ORDERABLES Final Resul t Performing Organization Address [facility] de Phone Number [facility] [place] [address] * (ABNORMAL) IgM (04/06/2025 7:04 AM CDT) Pathologist [facility] Immunoglobulin M <25(L) 40 - 230 mg/dL Blood 04/06/2025 7:04 AM CDT 04/06/2025 8:31 AM CDT David Santiago MD LAB BLOOD ORDERABLES Final Resul t Performing Organization Address [facility] de Phone Number [facility] [place] [address] * (ABNORMAL) IgG (04/06/2025 7:04 AM CDT) Immunoglobulin G 600(L) 700 - 1,600 mg/dL Blood 04/06/2025 7:04 AM CDT 04/06/2025 8:31 AM CDT David Santiago MD LAB BLOOD ORDERABLES Final Resul t Performing Organization Address City/[facility] de [facility] Number [facility] [place] [address] * (ABNORMAL) Beta 2 microglobulin, serum (04/06/2025 7:04 AM CDT) Pathologist [facility] Beta 2 microglobulin, bld 2.60(H) 1.00 - 2.50 mg/L Comment: Interpretive Data The [employer]um Beta-2 microglobulin assay procedure was used. Results from different manufacturers or methods may not be comparable. Serial testing should be performed using the same method. Blood 04/06/2025 7:04 AM CDT 04/06/2025 8:31 AM CDT David Santiago MD LAB BLOOD ORDERABLES Final Resul t Performing Organization Address [facility] de Phone Number [facility] Department [place] [address] * (ABNORMAL) Comprehensive metabolic panel (04/06/2025 7:04 AM CDT) [facility] Sodium 140 135 - 145 mmol/L Potassium, pl 3.9 3.3 - 4.9 mmol/L [facility] Chloride 106 97 - 110 mmol/L [facility] CO2 23 22 - 32 mmol/L [facility] Anion gap 11 2 - 15 mmol/L [facility] BUN 15 6 - 25 mg/dL [facility] Creatinine 0.81 0.80 - 1.30 mg/dL [facility] Glucose 169 70 - 199 mg/dL [facility] Comment: Interpretive Data Fasting glucose >/= 126 [...] AST 19 10 - 50 Units/L [facility] Blood 04/06/2025 7:04 AM CDT 04/06/2025 8:10 AM CDT us David Santiago MD LAB BLOOD ORDERABLES Final Resul t [facility] One [facility] [place] [address] from Last 3 Months Insurance [facility] Care Teams Jewelry Racker Relationship Specialty Start Date End Date Matthew Sorenson PA [address] [place] [address] PCP - General Family Practice 05/04/23 Matthew Sorenson PA [address] [place] [address] Family Practice 09/12/22
--- OUTSIDE RECORDS SUMMARY | 2025-06-01 09:06 | XMS_ITS | Encounter Summary ---
Author Organization [facility] Address [address] [address] Care Team Providers Care Director Of Laboratory Operations Name Role Phone Matthew Sorenson Primary Care Provider [phone] Jose Luis Brooks MD Unavailable [phone] Marilyn Bennett RN Unavailable Unavailable Reason for Referral * Consultation (Routine) - Closed Specialty Diagnoses / Procedures Referred By Vikash winters Referred To Contact Transitional Care Unit / Transitional Care Diagnoses Multiple myeloma, remission status unspecified (HCC) Ирина Alamo MD [address] [place] [address] Phone: tel: fax: Transitional Care at [facility] [address] [place] [address] Phone: tel: fax: Referral ID Status Reason Start Date Expiration Date V isits Requested Visits Authorized [id number] Closed Specialty Services Required 05/31/2025 05/31/2026 1 1 * Radiology Services (Emergency) - Open Specialty Diagnoses / Procedures Referred By Vikash winters Referred To Contact Diagnoses Multiple myeloma, remission status unspecified (HCC) Procedures MRI Lumbar Spine Wo Contrast Robb Wakefield MD [address] [place] [address] Phone: tel: fax: Referral ID Status Reason Start Date Expiration Date Visits Re quested Visits Authorized [id number] Open 05/28/2025 05/28/2026 1 1 Reason for Visit * Reason Comments Pain Back Pt BIBEMS tx from [facility] for complications s/p back surgery. HX L3 multiple Myeloma. Pt reports walking around doing chores then sat down. After attempting to stand up, pt felt sudden sharp pain in his lumbar, pins and needles BLE, unable to stand. PMS intact, DP 2+. * Auth/Cert (Routine) Specialty Diagnoses / Procedures Referred By Contac t Referred To Contact Diagnoses Severe back pain lower extremity weakness Referral ID Status Reason Start Date Expiration Date Visits Re quested Visits Authorized [id number] 1 1 Encounter Details Date Type Department Care Team (Late st Contact Info) Description 05/27/2025 11:33 PM CDT - 05/31/2025 9:25 AM CDT Hospital Encounter JOSIAH LOUISE [address] [place] [id number] Cristian Garcia MD [address] [facility] [place] [address] Natalie Berg MD [address] [place] [address] Robb Wakefield MD [address] [place] [address] Emergency Medicine Discharge Disposition: Home or Self Care Social History Tobacco Use Types Packs/Day Years [...] Recorded Patient Health Questionnaire-2 Score 0 11/20/2024 [facility] [...] any time in the past 12 m [facility], were you homeless or living in a residential (including now)? 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..] Richie Alejandro RN documented in this encounter Discharge Instructions * Discharge Instructions* Ирина Alamo MD - 05/31/2025 7:01 AM CDT Images from the original note were not included. [facility] Discharge Instructions You were admitted to [facility] for: Severe back pain. While you were here at the hospital: You had a CT scan of your back which was concerning for stenosis and fluid collection. Neurosurgery were consulted who recommended to start steroid pack for a week, and outpatient lumbar spine MRI with outpatient follow-up. Your condition improved and we believe you are ready for discharge from the hospital. To continue to care for your condition we recommend the following: Complete the steroid course as instructed. Lumbar spine MRI ordered. Neurosurgery follow-up outpatient. Follow-up with your PCP and oncologist. CONCERNING SYMPTOMS: When to call your healthcare provider: Call your healthcare provider immediately if you have any of the following: - Fever of 100.4??F (38??C) or higher/shaking chills. - Chest Pain that is new/different or does not go away with your normal medicines. - Shortness of Breath/Trouble Breathing that is new and/or does not go away with your normal medicines. - Feeling that your heart is racing. - Trouble talking. - Unusual rashes/sores. - Nausea and vomiting that won't go away/You can't keep food or water in your body. - Light headedness/Dizziness. - New/worsening confusion. -URINARY OR STOOL incontinence If you are unable to reach your primary provider or these symptoms are severe, please go to the nearest emergency room or call EMS (911). FOLLOW-UP: Information about your future appointments is listed above. Please make sure you go to all upcoming appointments. If there is a conflict or your needs change, please call the clinic ahead of time and reschedule the appointment. If you need further information, or you need to reschedule any appointments, you can call the scheduling department at the following numbers: [phone] for Tests/Procedures [phone] for Appointments Please follow up with your primary care provider (PCP) by 06/07/2025. If a follow-up with your PCP has not been scheduled, you need to schedule an appointment to follow-up on your hospitalization. It was a privilege to participate in your care and we wish you good health moving forward! documented in this encounter Medications at Time of Discharge Acetaminophen Extra Strength 500 MG TABS TAKE 2 TABLETS (1,000 MG TOTAL) BY MOUTH EVERY 6 HOURS NEEDED FOR PAIN 12/18/2024 acyclovir (Zovirax) 400 MG tablet Take 1 (one) tablet by mouth 2 times daily 60 tablet 5 03/02/2025 amLODIPine (Norvasc) 10 MG tablet Take 1 (one) tablet by mouth once daily Need to follow with primary care 30 tablet 3 01/13/2025 apixaban (Eliquis) 5 MG tablet Take 1 (one) tablet by mouth 2 times daily 60 tablet 3 10/01/2024 Blood Glucose Monitoring Suppl (Blood Glucose Monitor System) w/Device KITIndications:H yperglycemia Use 1 Each as directed 1 Each 06/28/2024 Blood Glucose Monitoring Suppl (Rhapsodyuch Verio Flex System) w/Device KITIndications:H yperglycemia, unspecified USE DIRECTED 1 kit 06/28/2024 06/28/20 Blood Glucose Monitoring Suppl (OneTouch Verio) w/Device KITIndications:H yperglycemia Use 1 Box 3 times daily with meals 1 kit 06/28/2024 blood glucose test stripIndications :Acute post-operative pain Use 1 (one) strip 3 times daily before meals Use one strip to check blood sugar before each meal. One touch verio strips 100 strip 12 07/23/2024 camphor-menthol (Sarna) 0.5-0.5 % lotion Apply to affected area 3 times daily as needed for Itching 222 mL 1 11/10/2024 carvedilol (Coreg) 12.5 MG tablet TAKE 1 TABLET TWICE A DAY BY ORAL ROUTE FOR 90 DAYS. 12/26/2024 Continuous Glucose Still Operator Whiskey (Dexcom G7 Still Operator Whiskey) NOREEN as directed Continuous Glucose Sensor (Dexcom G7 Sensor) MISC as directed 08/07/2024 cyclobenzaprine (Flexeril) 10 MG tablet Take 1 (one) tablet by mouth 3 times daily as needed for Muscle Spasms 90 tablet 1 12/10/2024 docusate sodium (Colace) 100 MG capsule Take 1 (one) capsule by mouth 2 times daily 60 capsule 3 01/01/2025 doxycycline hyclate 100 MG tabletIndication s:MRSA bacteremia,Acute on chronic low back pain,Orthopedic hardware present Take 1 (one) tablet by mouth 2 times daily 56 tablet 5 01/19/2025 07/06/20 25 famotidine (Pepcid) 40 MG tablet Take 1 (one) tablet by mouth once daily 12/10/2024 fexofenadine (Joceline) 180 MG tablet Take 1 (one) tablet by mouth once daily hydrOXYzine HCl (Atarax) 25 MG tabletIndication s:Itching TAKE 1 (ONE) TABLET BY MOUTH 4 TIMES DAILY NEEDED FOR ITCHING 360 tablet 1 10/14/2024 insulin aspart (NovoLOG) pen Inject 5 (five) Units subcutaneously 3 times daily with meals 6 mL 2 12/24/2024 Jardiance 25 MG tablet Take 1 tablet every day by oral route for 90 days. 01/26/2025 Lancets (ONETOUCH DELICA PLUS 33G EXTRA FINE LANCET)Indicatio ns:Hyperglycemia , unspecified USE ONE LANCET 3 TIMES A DAY 100 Each 11 06/28/2024 06/28/20 25 lidocaine (Lidoderm) 4 % patch Apply 1 (one) patch to skin once daily Apply patch to most painful area and remove after 12 hours. May reapply a new patch 12 hours later. 16 patch 10/14/2024 losartan (Cozaar) 100 MG tablet Take 1 (one) tablet by mouth once daily Need to follow with primary care 30 tablet 1 01/01/2025 methylPREDNISolo ne (Medrol) 4 MG tablet Take 2 (two) tablets by mouth daily with breakfast for 1 day, THEN 1 (one) tablet daily with breakfast for 1 day. 3 tablet 06/01/2025 06/03/20 25 mirtazapine (Remeron) 15 MG tablet TAKE 1 TABLET BY MOUTH EVERYDAY AT BEDTIME 90 tablet 1 01/15/2025 Nutritional Supplements (Ensure High Protein) LIQDIndications: Ensure High Protein twice a day Take 2 cans by mouth 2 times daily Reasons: Ensure High Protein twice a day 11/24/2024 ondansetron (Zofran) 8 MG tablet Take 1 (one) tablet by mouth every 8 hours as needed oxyCODONE CR 12hr (OxyCONTIN) 20 MG tabletIndication s:Cancer associated pain Take 1 (one) tablet by mouth every 12 hours 60 tablet 01/14/2025 oxyCODONE, immediate release, (Roxicodone) 5 MG tabletIndication s:Multiple myeloma not having achieved remission (HCC) Take 1 (one) tablet by mouth every 6 hours as needed for Pain 60 tablet 12/24/2024 polyethylene glycol 3350 (Miralax) 17 g packet Take 17 (seventeen) g by mouth once daily for 30 days 30 packet 06/01/2025 07/01/20 25 prochlorperazine (Compazine) 10 MG tabletIndication s:Multiple myeloma not having achieved remission (HCC) Take 1 (one) tablet by mouth every 6 hours as needed for Nausea/Vomiting 30 tablet 6 01/13/2025 sennosides (Senokot) 8.6 MG tablet TAKE ONE TABLET BY MOUTH 2 TIMES A DAY FOR 10 DAYS 20 tablet 06/09/2024 06/09/20 25 sertraline (Zoloft) 50 MG tablet TAKE 1 TABLET BY MOUTH EVERY DAY 90 tablet 1 11/05/2024 TRUEplus 5-Bevel Pen Paola 31G X 6 MM MISC USE TO INJECT INSULIN 3 TIMES DAILY 11/20/2024 documented as of this encounter Progress Notes * Ellie Serrano RN - 05/31/2025 9:24 AM CDT Patient discharge education given including new medications, follow up appointment,s and when to seek care. Patient verbalized understanding and used teach back method to verify understanding. Pt. Ambulated to care with . * Ирина Alamo MD - 05/31/2025 9:16 AM CDT Images from the original note were not included. [facility] Discharge Summary Name: Joselito Nguyen Room/Bed: [facility] : 1980 44 year old PCP: SHEREE Doyle Admit Date/Time: 05/27/2025 11:33 PM LOS: 3 Date of discharge: 05/31/2025 Code status at time of discharge: Full Code Discharge Diagnosis HTN (hypertension) (POA: Yes) DM (diabetes mellitus) (HCC) (POA: Yes) MRSA bacteremia (POA: Yes) Multiple myeloma, remission status unspecified (HCC) (POA: Unknown) Acute midline thoracic back pain (POA: Unknown) Acute midline low back pain, unspecified whether sciatica present (POA: Unknown) Hospital Course Joselito Nguyen is a 44 year with 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 [facility] evaluated the patient w/o acute surgical interventions, recommended steroid pack and outpatient lumber spine MRI with follow up in 4 weeks. Pt's pain improved with steroid pack. He will be di scharged home with [facility] follow up, and PCP. Problem List/Plan of Care at Time of Discharge Assessment & Plan Multiple myeloma, remission status unspecified (HCC) Acute midline thoracic back pain Acute midline low back pain, unspecified whether sciatica present - Multiple spinal surgeries: kyphoplasty, instrumented fusion and laminectomy - Now with worsening back pain and stenosis on CT - Patient previously on Meenu-VRD and was slated for auto stem cell transplant however d/t cirrhosisthey were switched to Revlimid daily - takes eliquis at home due to hypercoaguable effects of Revlimid - home pain management: 20mg oxycodone BID, flexiril and lidocaine PRN Plan: - can bring home Revlimid for patient to continue to use - Neurosurgery onboard, appreciate recs: - no need for MRI as per neurosurgery -Started medrol dose pack for pain 05/28 - resumed home eliquis - continue acyclovir for ppx - pain management as follows: 20mg OxyContin, 5mg oxycodone PRN, dilaudid 0.4 PRN -PT/OT -Will need follow up in 4 weeks and MRI lumber spine OP. -Continue with gabapentin 300mg TID -Laxatives while on opioids for constipation. MRSA bacteremia - complication of L3 kyphoplasty. Treated with antibiotics and currently on doxycycline for furtherppx given presence of multiple hardware in the spine. - follows with ID outpatient Plan: - continue doxycycline ppx DM (diabetes mellitus) (HCC) patient takes jardiance 25mg daily at home -ISS while inpatient HTN (hypertension) -Restart home Losartan Follow-up Summary Future Appointments Sunday June 15, 2025 2:30 PM Appointment with [facility] 1 1.5T at [facility] MRI ([phone]) [address] [facility] [address] Sunday June 15, 2025 3:15 PM (Arrive by 3:00 PM) Appointment with Arya Rm at [facility] - Neurosurgery ([phone]) [address] [facility] [address] [facility] [address] As directed Imaging: MRI Lumbar Spine Wo Contrast As directed Outpatient Referral: REF TO [facility] Medication Updates: Medrop Pack Mirilax Post discharge follow up tasks/Incidental Findings: Follow up with [facility] 06/15 MRI lumber spine 06/15 Follow up with PCP, and Heme/Onc as scheduled. Discharge Destination: Home. Discharge Medications Allergies[1] Medication List START taking these medications methylPREDNISolone 4 MG tablet Commonly known as: Medrol Take 2 (two) tablets by mouth daily with breakfast for 1 day, THEN 1 (one) tablet daily with breakfast for 1 day. Start taking on: June 01, 2025 polyethylene glycol 3350 17 g packet Commonly known as: Miralax Take 17 (seventeen) g by mouth once daily for 30 days Start taking on: June 01, 2025 CHANGE how you take these medications blood glucose test strip Use 1 (one) strip 3 times daily before meals Use one strip to check blood sugar before each meal. One touch verio strips What changed: how much to take insulin glargine pen Commonly known as: Lantus Inject 10 (ten) Units subcutaneously every 24 hours for 30 days What changed: how much to take CONTINUE taking these medications Acetaminophen Extra Strength 500 MG Tabs acyclovir 400 MG tablet Commonly known as: Zovirax Take 1 (one) tablet by mouth 2 times daily amLODIPine 10 MG tablet Commonly known as: Norvasc Take 1 (one) tablet by mouth once daily Need to follow with primary care apixaban 5 MG tablet Commonly known as: Eliquis Take 1 (one) tablet by mouth 2 times daily * Blood Glucose Monitor System w/Device Kit Use 1 Each as directed * OneTouch Verio w/Device Kit Use 1 Box 3 times daily with meals * OneTouch Verio Flex System w/Device Kit USE DIRECTED camphor-menthol 0.5-0.5 % lotion Commonly known as: Sarna Apply to affected area 3 times daily as needed for Itching carvedilol 12.5 MG tablet Commonly known as: Coreg cyclobenzaprine 10 MG tablet Commonly known as: Flexeril Take 1 (one) tablet by mouth 3 times daily as needed for Muscle Spasms Dexcom G7 Still Operator Whiskey Noreen Dexcom G7 Sensor Misc docusate sodium 100 MG capsule Commonly known as: Colace Take 1 (one) capsule by mouth 2 times daily doxycycline hyclate 100 MG tablet Take 1 (one) tablet by mouth 2 times daily Ensure High Protein Liqd Take 2 cans by mouth 2 times daily Reasons: Ensure High Protein twice a day famotidine 40 MG tablet Commonly known as: Pepcid Take 1 (one) tablet by mouth once daily fexofenadine 180 MG tablet Commonly known as: Joceline gabapentin 300 MG capsule Commonly known as: Neurontin Take 1 (one) capsule by mouth 2 times daily for 60 days, THEN 2 (two) capsules at bedtime for 60 days. Start taking on: January 13, 2025 hydrOXYzine HCl 25 MG tablet Commonly known as: Atarax TAKE 1 (ONE) TABLET BY MOUTH 4 TIMES DAILY NEEDED FOR ITCHING insulin aspart pen Commonly known as: NovoLOG Inject 5 (five) Units subcutaneously 3 times daily with meals Jardiance 25 MG tablet Generic drug: empagliflozin lenalidomide 10 MG capsule Commonly known as: Revlimid Take 1 (one) capsule by mouth once daily for 28 days lidocaine 4 % patch Commonly known as: Lidoderm Apply 1 (one) patch to skin once daily Apply patch to most painful area and remove after 12 hours. May reapply a new patch 12 hours later. losartan 100 MG tablet Commonly known as: Cozaar Take 1 (one) tablet by mouth once daily Need to follow with primary care mirtazapine 15 MG tablet Commonly known as: Remeron TAKE 1 TABLET BY MOUTH EVERYDAY AT BEDTIME ondansetron 8 MG tablet Commonly known as: Zofran ONETOUCH DELICA PLUS 33G EXTRA FINE LANCET USE ONE LANCET 3 TIMES A DAY * oxyCODONE (immediate release) 5 MG tablet Commonly known as: Roxicodone Take 1 (one) tablet by mouth every 6 hours as needed for Pain * oxyCODONE CR 12hr 20 MG tablet Commonly known as: OxyCONTIN Take 1 (one) tablet by mouth every 12 hours prochlorperazine 10 MG tablet Commonly known as: Compazine Take 1 (one) tablet by mouth every 6 hours as needed for Nausea/Vomiting Senokot 8.6 MG tablet Generic drug: sennosides TAKE ONE TABLET BY MOUTH 2 TIMES A DAY FOR 10 DAYS sertraline 50 MG tablet Commonly known as: Zoloft TAKE 1 TABLET BY MOUTH EVERY DAY TRUEplus 5-Bevel Pen Paola 31G X 6 MM Misc Generic drug: Insulin Pen Needle * This list has 5 medication(s) that are the same as other medications prescribed for you. Read thedirections carefully, and ask your doctor or other care provider to review them with you. STOP taking these medications amoxicillin 875 MG tablet Commonly known as: Amoxil ondansetron (disintegrating) 8 MG tablet Commonly known as: Zofran ODT Where to Get Your Medications These medications were sent to [facility]/pharmacy #[id number] - [address] [facility] [address] [address] [address] polyethylene glycol 3350 17 g packet These medications were sent to [facility] [address] [address] Hours: Mon-Fri 8AM-6PM; Sat 9AM-1PM methylPREDNISolone 4 MG tablet Physical Exam Recent Vitals: Temp: [97.5 ??F (36.4 ??C)-98.6 ??F (37 ??C)] 97.5 ??F (36.4 ??C) Pulse: [54-73] 73 Resp: [16-18] 16 BP: (104-131)/(68-89) 104/89 Weight change: No intake or output data in the 24 hours ending 05/31/25 0916 Physical Exam: Physical Exam Constitutional: General: He is not in acute distress. Appearance: He is obese. HENT: Head: Normocephalic. Right Ear: Tympanic membrane normal. Nose: Nose normal. Mouth/Throat: Mouth: Mucous membranes are moist. Eyes: Pupils: Pupils are equal, round, and reactive to light. Cardiovascular: Rate and Rhythm: Normal rate and regular rhythm. Heart sounds: No murmur heard. Pulmonary: Effort: Pulmonary effort is normal. No respiratory distress. Abdominal: General: There is no distension. Tenderness: There is no abdominal tenderness. Musculoskeletal: General: Normal range of motion. Cervical back: Normal range of motion. Right lower leg: No edema. Left lower leg: No edema. Skin: General: Skin is warm. Neurological: Mental Status: He is alert and oriented to person, place, and time. Mental status is at baseline. Cranial Nerves: No cranial nerve deficit. Psychiatric: Mood and Affect: Mood normal. Behavior: Behavior normal. Radiology CT Lumbar Spine Wo Contrast Result Date: 05/28/2025 PROCEDURE: CT THORACIC SPINE WO CONTRAST, CT LUMBAR SPINE WO CONTRAST, DATE/TIME OF EXAM: 53:39 AM, LOCATION [facility] INDICATION: M54.6: Acute midline thoracic back pain EXAMINATION: 1.CT of the thoracic spine without contrast 2.CT of the lumbar spine without contrast ADDITIONAL CLINICAL INFORMATION: Ordering Provider Reason For Exam: b/l LE weakness, h/o spinal surgery Technologist Note: Additional: TECHNIQUE: CT of the thoracic and lumbar spine were obtained according to standard protocol. Reformatted sagittal and coronal images were obtained by the technologistand sent to the workstation for review. CT dose reduction technique was used, including Automated Exposure Control. COMPARISON: CT lumbar spine dated 12/05/2024. FINDINGS: Thoracic spine: The alignmentis normal. Vertebral bodies are normal in height without evidence of acute fracture. There is mild degenerative disc disease. Mild to moderate multilevel central canal stenosis secondary to ligamentum flavum hypertrophy, most pronounced at T10-T11. There is mild facet osteoarthritis at multiple leve ls. No neural foraminal stenosis is seen. There is subsegmental atelectasis in the dependent portions of the lung bases. Lumbar spine: Posterior spinal fusion hardware at L1-L5. Hardware appears intact without evidence of lucencies to suggest loosening. Laminectomy at L2-L3. 5 mm retrolisthesis of L3 on L4. Redemonstration of a chronic L3 vertebral body fracture status post kyphoplasty. An irregular lytic lesion and the sclerotic changes with cortical enlargement are noted in the L3 vertebral body. No acute fracture identified. Mild to moderate multilevel degenerative disc disease. Severe central canal stenosis at L3-L4 due to retropulsion and enlargement of the bones. There is advanced facet osteoarthritis at multiple levels. Moderate to severe multilevel neural foraminal stenosis. Status post cholecystectomy. Redemonstration of a mixed lytic and sclerotic lesion at the posterior aspect of the left ilium which may represent sequelae of Paget's. Within the posterior soft tissue at thelevel of L3 there is an ill-defined 2.7 x 4.9 cm fluid collection extending to the skin surface. This is not well evaluated due to the lack of intravenous contrast. This may be postsurgical changes, however recommend correlation for possible infection. IMPRESSION: 1.No evidence of acute fracture in the thoracic or lumbar spine. 2.Mild to moderate central canal stenosis in the thoracic spine, most pronounced at T10-T11 due to the given of trauma thickening/calcification. 3.Redemonstration of a chronic L3 vertebral body fracture status post kyphopla sty. An irregular lytic lesion and the sclerotic changes with cortical enlargement are noted in theL3 vertebral body. However, the lytic lesion is not well evaluated due to the technique. 4.Redemonstration of posterior spinal fusion at L1 and L5 with laminectomy at L2-L3. 5.Severe central canal stenosis at L3-L4 due to retropulsion and enlargement of the bones, likely severe compression of the nerve roots in the cauda equina at that level. 6.Within the posterior soft tissue at the level of L3 there is an ill-defined 2.7 x 4.9 cm fluid collection extending to the skin surface. This may be postsurgical changes, however recommend correlation for possible infection. > Dictated by Railway Switch Operator I, Natan Modi MD have personally reviewed and interpreted this examination/study. > Interpreting Provider: Natan Modi MD on 05/28/2025 10:[address] Thoracic Spine Wo Contrast Result Date: 05/28/2025 PROCEDURE: CT THORACIC SPINE WO CONTRAST, CT LUMBAR SPINE WO CONTRAST, DATE/TIME OF EXAM: 53:39 AM, LOCATION [facility] INDICATION: M54.6: Acute midline thoracic back pain EXAMINATION: 1.CT of the thoracic spine without contrast 2.CT of the lumbar spine without contrast ADDITIONAL CLINICAL INFORMATION: Ordering Provider Reason For Exam: b/l LE weakness, h/o spinal surgery Technologist Note: Additional: TECHNIQUE: CT of the thoracic and lumbar spine were obtained according to standard protocol. Reformatted sagittal and coronal images were obtained by the technologistand sent to the workstation for review. CT dose reduction technique was used, including Automated Exposure Control. COMPARISON: CT lumbar spine dated 12/05/2024. FINDINGS: Thoracic spine: The alignmentis normal. Vertebral bodies are normal in height without evidence of acute fracture. There is mild degenerative disc disease. Mild to moderate multilevel central canal stenosis secondary to ligamentum flavum hypertrophy, most pronounced at T10-T11. There is mild facet osteoarthritis at multiple leve ls. No neural foraminal stenosis is seen. There is subsegmental atelectasis in the dependent portions of the lung bases. Lumbar spine: Posterior spinal fusion hardware at L1-L5. Hardware appears intact without evidence of lucencies to suggest loosening. Laminectomy at L2-L3. 5 mm retrolisthesis of L3 on L4. Redemonstration of a chronic L3 vertebral body fracture status post kyphoplasty. An irregular lytic lesion and the sclerotic changes with cortical enlargement are noted in the L3 vertebral body. No acute fracture identified. Mild to moderate multilevel degenerative disc disease. Severe central canal stenosis at L3-L4 due to retropulsion and enlargement of the bones. There is advanced facet osteoarthritis at multiple levels. Moderate to severe multilevel neural foraminal stenosis. Status post cholecystectomy. Redemonstration of a mixed lytic and sclerotic lesion at the posterior aspect of the left ilium which may represent sequelae of Paget's. Within the posterior soft tissue at thelevel of L3 there is an ill-defined 2.7 x 4.9 cm fluid collection extending to the skin surface. This is not well evaluated due to the lack of intravenous contrast. This may be postsurgical changes, however recommend correlation for possible infection. IMPRESSION: 1.No evidence of acute fracture in the thoracic or lumbar spine. 2.Mild to moderate central canal stenosis in the thoracic spine, most pronounced at T10-T11 due to the given of trauma thickening/calcification. 3.Redemonstration of a chronic L3 vertebral body fracture status post kyphopla sty. An irregular lytic lesion and the sclerotic changes with cortical enlargement are noted in theL3 vertebral body. However, the lytic lesion is not well evaluated due to the technique. 4.Redemonstration of posterior spinal fusion at L1 and L5 with laminectomy at L2-L3. 5.Severe central canal stenosis at L3-L4 due to retropulsion and enlargement of the bones, likely severe compression of the nerve roots in the cauda equina at that level. 6.Within the posterior soft tissue at the level of L3 there is an ill-defined 2.7 x 4.9 cm fluid collection extending to the skin surface. This may be postsurgical changes, however recommend correlation for possible infection. > Dictated by Railway Switch Operator I, Natan Modi MD have personally reviewed and interpreted this examination/study. > Interpreting Provider: Natan Modi MD on 05/28/2025 10:09 AM Notable Labs Laboratory Data Recent Labs Component Name 05/31/25 0656 05/30/25 0729 05/29/25 0704 WBC 12.5* 12.9* 6.9 HGB 15.5 15.7 16.6 HCT 46.6 47.6 50.5 PLTCOUNT 216 175 210 MCV 85.3 85.9 87.1 Recent Labs Component Name 02/19/25 0826 12/01/24 2100 12/01/24 1036 11/07/24 0847 10/20/24 1143 09/01/24 1218 09/01/24 0028 PT 12.7 11.9* - 12.6 - - 13.8 INR 1.0 0.9 - 1.0 - - 1.1 PTT - - 30.6 - - 33.2 25.5 - = values in this interval not displayed. Recent Labs Component Name 05/31/25 0656 05/30/25 0729 05/29/25 0704 NA 138 141 136 POTASSIUM 3.8 3.6 4.4 CL 108* 113* 108* CO2 26 24 22 BUN 14 14 13 CREATININE 0.74 0.76 0.75 Recent Labs Component Name 05/31/25 0656 05/30/25 0729 05/29/25 0704 CALCIUM 8.7 8.6 9.1 PHOS 3.5 3.3 2.2* Recent Labs Component Name 05/31/25 0656 05/30/25 0729 05/29/25 0704 05/28/25 0126 02/12/25 1035 02/12/25 1032 02/02/25 0916 PROT - - - 6.3 8.2 7.4 7.2 ALB 4.0 4.1 4.4 4.3 4.6 - 4.1 ALKPHOS - - - 129 214* - 185* AST - - - 25 13 - 12 ALT - - - 23 24 - 21 TBILI - - - 0.3 0.3 - 0.2 Recent Labs Component Name 10/27/24214209/26/24 0605 09/19/242026 CKTOTAL 11* <70 9* Recent Labs Component Name 10/27/24 0547 [facility] 8.3* Microbiology Results (Displays last 21 days for this encounter ONLY) No results found for the last 504 hours. Patient Discharge Instructions Discharge Instructions [facility] Discharge Instructions You were admitted to [facility] for: Severe back pain. While you were here at the hospital: You had a CT scan of your back which was concerning for stenosis and fluid collection. Neurosurgery were consulted who recommended to start steroid pack for a week, and outpatient lumbar spine MRI with outpatient follow-up. Your condition improved and we believe you are ready for discharge from the hospital. To continue to care for your condition we recommend the following: Complete the steroid course as instructed. Lumbar spine MRI ordered. Neurosurgery follow-up outpatient. Follow-up with your PCP and oncologist. CONCERNING SYMPTOMS: When to call your healthcare provider: Call your healthcare provider immediately if you have any of the following: - Fever of 100.4??F (38??C) or higher/shaking chills. - Chest Pain that is new/different or does not go away with your normal medicines. - Shortness of Breath/Trouble Breathing that is new and/or does not go away with your normal medicines. - Feeling that your heart is racing. - Trouble talking. - Unusual rashes/sores. - Nausea and vomiting that won't go away/You can't keep food or water in your body. - Light headedness/Dizziness. - New/worsening confusion. -URINARY OR STOOL incontinence If you are unable to reach your primary provider or these symptoms are severe, please go to the nearest emergency room or call EMS ([phone]). FOLLOW-UP: Information about your future appointments is listed above. Please make sure you go to all upcoming appointments. If there is a conflict or your needs change, please call the clinic ahead of time and reschedule the appointment. If you need further information, or you need to reschedule any appointments, you can call the scheduling department at the following numbers: [phone] for Tests/Procedures [phone] for Appointments Please follow up with your primary care provider (PCP) by 06/07/2025. If a follow-up with your PCP has not been scheduled, you need to schedule an appointment to follow-up on your hospitalization. It was a privilege to participate in your care and we wish you good health moving forward! I spent 28 minutes in addition to direct patient care summarizing this patient's hospital stay, reviewing and updating the inpatient problem list, reviewing discharge medications, instructions, discussing discharge care planand discharge follow up labs/studies/doctor visits with the patient and or POA/family. Ирина Alamo MD [facility] 05/31/2025 9:16 AM [1] Allergies Allergen Reactions Ms Contin [Morphine] Rash Vancomycin Rash Red man's syndrome * Phylicia Singh OT - 05/30/2025 3:50 PM CDT [facility] Physical Medicine and Rehabilitation Occupational Therapy Initial Evaluation/ Discharge Note Patient: Joselito Nguyen [facility] Record Number: [id number] Date of : 1980 Age: [age] year old PPE worn by staff: gloves;gown - disposable PPE worn by patient: socks - clean Tech: Recommendations: Discharge OT Discharge Recommendations: Patient may return home without the need for ongoing skilled therapy services post-hospitalization In addition to the 1:1 evaluation of the patient, additional eval time was spent completing the chart review prior to the assessment, completing the multidisciplinary plan of care and education plan post evaluation and communicating results of the eval to other treatment team members. Nurse and Physical Therapist contacted regarding patient status and/or discharge plan. Physician Orders: Evaluation and Treat Activity Level: as tolerated PRECAUTIONS: Spine Precautions: (For comfort) DIAGNOSIS: Problem List[1] Past Medical History[2] SUBJECTIVE: Subjective: Pt. agreeable PATIENT GOALS / WHAT MATTERS MOST TO THE PATIENT: Home Situation: Type of Residence: Private Residence Living arrangement: Spouse/Significant Other Steps to Enter: 3 Handrails: Outdoor Home Structure: One Story Primary Bedroom: First Floor Primary Bathroom: First Floor Bathroom : Tub/Shower Combo Equipment at Home: None;Walker Prior Level of Functioning: Mobility: Ambulate-In Community;Ambulate-In Home ;Without Assistive Device Fallen Within 6 Mos: No Have Help at Home?: Yes, there is help at home now Who assists you at home?: Friends/Family How often is assistance provided?: as needed Level of Help Sufficient?: Yes Oxygen at Home: No Activity at Home: Active Vision: No impairment Hearing Exceptions: No impairment Who manages medications?: self Pain Assessment: Pain Assessment Pain Scale/Observation: 0-10 Pain Rating Score #1: 6 Sedation Level: 1-Awake and alert Functional Goal: Participate in therapies Functional Goal Met?: Yes Pain Location : Back Pain Descriptors: Throbbing;Aching OBJECTIVE: At start of therapy session, patient found in bed and with no alarm General Appearance: 44 y/o male, supine in bed, NAD LDA: Floor: IVs: Peripheral line Edema: No edema noted in bilateral UEs Vitals: (*Assess the 3 levels of oxygen saturations both for room air and 02 unless rest on room air is 88% or less). Observations: occasional pain, however no other s/s of distress during tx session Mental Status/Cognition: Level of Consciousness-Adult: (A&O x 4) Cognition: (Oriented X4) Attention Span: Appears intact Following Commands: Follows all commands and directions without difficulty Safety Judgement: Good awareness of safety precautions Awareness of Errors: Good awareness of errors made Problem Solving: Able to problem solve independently UE ROM: RUE: AROM WFL LUE: AROM WFL Strength: RUE: WFL LUE: WFL UE Tone RUE: no abnormal tone noted LUE: no abnormal tone noted Coordination: intact serial opposition for bilateral hands UE Proprioception RUE: WFL LUE: WFL UE Sensation RUE: intact, no complaints of numbness or tingling LUE: intact, no complaints of numbness or tingling Perception: Inattention/Neglect: Appears intact Visual Motor Tracking: Able to track stimulus in all quads w/o difficulty Mobility: A gait belt and non-slip socks were used for all out of bed activity this date. Bed Mobility: Supine to Sit: Complete [place] with HOB in semi-fowlers position Sit to Supine: Complete [place] Transfers: Sit to Stand: Modified [place] Stand to Sit: Modified [place] Transfer Device: Gait belt;Walker-2 Wheeled Functional Ambulation: Patient ambulated to/from bathroom and in room with modified independence using 2WW. Balance: Balance Scales/Tests Used: Sitting: Static/Dynamic;Standing: Static/Dynamic Sitting - Static: Good Sitting - Dynamic: Good Standing - Static: Good Standing - Dynamic: Good;With Both Upper Extremity's Support Activities of Daily Living Oral Facial Hygiene: Complete [place] (standing at sink for hand hygiene) Footwear: Modified independence with increased time needed to perform 2 Toileting: Modified [place] Patient asking about AE, however educated therapies promotion of utilizing least restrictive devices. Therapist told patient that patient should continue to dress self without AE and on the days thatpain is unbearable to have physical assistance from another person. Splint Issued/Checked: none ACTIVITY TOLERANCE: Activity Tolerance: Tolerates ADLs without rest breaks AM-PAC 6 Clicks Daily Activity Raw Score:: 24 TREATMENT / EDUCATION / INTERVENTIONS: While performing OT, Patient was instructed in:functional mobility training, self-care training, safety awareness/fall precautions , spine precautions Presented to patient who demonstrates Good understanding of instructions given. INFORMED CONSENT TO TREATMENT: Plan of care including recommended therapy, goals and frequency, discussed with patient who understands and agrees to proceed. ASSESSMENT: Patient demonstrated independence/ baseline with activities of daily living. No continued IP Occupational Therapy indicated at this time. Plan: Goals achieved. DC patient from skilled therapy services at this time. If patient is discharged from the facility, this note serves as a discharge summary if further occupational therapy visits did not occur. Refer to filed flowsheet for further details. Following therapy session, patient left in bed, with call light within reach. 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 infection (HCC) Multiple myeloma, remission status unspecified (HCC) Acute midline thoracic back pain Acute midline low back pain, unspecified whether sciatica present [2] Past Medical History: Diagnosis Date Acute osteomyelitis of lumbar spine (HCC) 11/20/2024 Acute septic pulmonary embolism without acute cor pulmonale (HCC) 10/14/2024 Agitated Elevated LFTs 11/20/2024 Hepatic cirrhosis due to chronic hepatitis C infection (HCC) 02/27/2025 History of illicit drug use 10/14/2024 Multiple myeloma (HCC) Orthopedic hardware present 12/18/2024 Type 2 diabetes mellitus without complications (HCC) Viral hepatitis C without hepatic coma * Marilou Ruiz PT - 05/30/2025 11:46 AM CDT [facility] Physical Medicine and Rehabilitation Physical Therapy Initial Evaluation Note Patient: Joselito Nguyen Med Record Number: [id number] Date of : 1980 Age: [age] year old PPE worn by staff: gloves;gown - disposable Tech:none used during treatment - LEE, Tech brought him a wedge to try with supine / sleeping positions tonight for working on a better position for home management Recommendations: return home. He has a walker and can use it intermittently for pain. May benefit from further outpatient physical therapy once pain under control - Patient reports not needed right now and knows to ask the doctor for an order for outpatient or home health PT if he finds there are further needs once medical concerns are addressed. In addition to the 1:1 evaluation of the patient, additional eval time was spent completing the chart review prior to the assessment, completing the multidisciplinary plan of care and education plan post evaluation and communicating results of the eval to other treatment team members. Patient currently using Walker and has equipment at home. No equipment needs if d/c home. Nurse contacted regarding patient status and/or discharge plan. Physician Orders: Evaluation and Treat PRECAUTIONS: Activity Level: Activity as Tolerated DIAGNOSIS: Problem List[1] Past Medical History[2] SUBJECTIVE: Subjective: (wants to return home from here) PATIENT GOALS / WHAT MATTERS MOST TO THE PATIENT: Patient's Primary Concern: (pain management) Home Situation: Type of Residence: Private Residence Living arrangement: Spouse/Significant Other Steps to Enter: 3 Ramp: No Handrails: Outdoor Home Structure: One Story Primary Bedroom: First Floor Primary Bathroom: First Floor Bathroom : Tub/Shower Combo Equipment at Home: None;Walker Prior Level of Functioning: Prior Level of Function Mobility: Ambulate-In Community;Ambulate-In Home ;Without Assistive Device Fallen Within 6 Mos: No Activity at Home: Active Pain Assessment: Pain Assessment Pain Scale/Observation: 0-10 Pain Rating Score #1: 4 (4-5 - grimaced with donning socks) Sedation Level: 1-Awake and alert Functional Goal: Participate in therapies Functional Goal Met?: Yes Pain Location : Back Pain Descriptors: Throbbing;Aching OBJECTIVE: At start of therapy session, patient found in patient bedside chair. General Appearance: Sitting upright, just sat back down after walking around his room - fully dressed with flip flops on LDAs: Floor: IVs: Peripheral line Edema: no edema noted in bilateral lower extremities Mental Status/Cognition: Level of Consciousness-Adult: (A&O x 4) Mobility: A gait belt and non-slip socks were used for all out of bed activity this date. Transfers: Sit to Stand: Modified [place] Stand to Sit: Modified [place] Type of Transfer: Stand Pivot Transfer Transfer Device: Gait belt;Walker-2 Wheeled Gait: Distance Ambulated (ft): (150) Ambulation: Assistive Device: Gait Belt;Walker-2 Wheeled Ambulation: Level of Assistance: Supervision;Modified [place] Ambulation: Gait Deviations: Increased Trunk Flexion;Mary - Decreased (unweights pain by leaningon arms) Balance: Balance Scales/Tests Used: Sitting: Static/Dynamic;Standing: Static/Dynamic Sitting - Static: Good Sitting - Dynamic: Good Standing - Static: Good Standing - Dynamic: Good;With Both Upper Extremity's Support (unweights pain by holding rails or walker - good balance, just painful) ACTIVITY TOLERANCE: Fair to Good Discussion about positioning in sitting - importance of avoiding legs dangling as this can increasepressure and pain in lower back. Given a step-stool bedside so that when he wants to sit upright, he can keep his feet supported. Discussion using a wedge for positioning when sleeping at home on a flat mattress, he reports he sleeps on his back. Showed him pictures - he wanted to try it. Brought a wedge to him bedside to trialwhen he goes to bed at night TREATMENT/INTERVENTIONS: evaluation AM-PAC 6 Clicks Mobility Raw Score:: 20 EDUCATION: While performing PT, Patient was instructed in:functional mobility training, self-care training, discharge planning Presented to patient who demonstrates Good understanding of instructions given. INFORMED CONSENT TO TREATMENT: Plan of care including recommended therapy, goals and frequency, discussed with patient who understands and agrees to proceed. ASSESSMENT: Patient demonstrates independence with mobility/exercise. No continued Physical Therapy indicated at this time. Equipment Issued: gait belt Plan: Discontinue IP PT If patient is discharged from the facility, this note serves as a discharge summary if further physical therapy visits did not occur. Refer to filed flowsheet for further details. Following therapy session, patient left in patient bedside chair , with RN, aware. 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 infection (HCC) Multiple myeloma, remission status unspecified (HCC) Acute midline thoracic back pain Acute midline low back pain, unspecified whether sciatica present [2] Past Medical History: Diagnosis Date Acute osteomyelitis of lumbar spine (HCC) 11/20/2024 Acute septic pulmonary embolism without acute cor pulmonale (HCC) 10/14/2024 Agitated Elevated LFTs 11/20/2024 Hepatic cirrhosis due to chronic hepatitis C infection (HCC) 02/27/2025 History of illicit drug use 10/14/2024 Multiple myeloma (HCC) Orthopedic hardware present 12/18/2024 Type 2 diabetes mellitus without complications (HCC) Viral hepatitis C without hepatic coma * Ирина Alamo MD - 05/30/2025 7:13 AM CDT Images from the original note were not included. [facility] Progress Note Name: Joselito Nguyen Room/Bed: Critical access hospital : 1980 44 year old PCP: SHEREE Doyle Admit Date/Time: 05/27/2025 11:33 PM LOS: 2 Subjective Interval update: No acute events overnight, has been hemodynamically stable afebrile. Received 2 doses of IV Dilaudid in the past 24 hours.pain is better controlled today stated that his pain is 5/1 compared to 12/10 on admission. Dispo plan pending pain control and PT OT eval. 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 [facility] [place] w/o acute surgical interventions, recommended steroid pack and outpatient lumber spine MRI with follow up in 4 weeks. Pt now pending pain control and PT/OT evaluation. Objective Temp: [97.9 ??F (36.6 ??C)] 97.9 ??F (36.6 ??C) Pulse: [58-79] 79 Resp: [12-18] 18 BP: (146-168)/(85-91) 146/91 Weight change: Intake/Output Summary (Last 24 hours) at 05/30/2025 0713 Last data filed at 05/29/2025 1751 Gross per 24 hour Intake 600 ml Output 800 ml Net -200 ml Physical Exam: Vitals and nursing note reviewed. Constitutional: Appearance: He is obese. He is not toxic-appearing. HENT: Head: Normocephalic. Nose: Nose normal. Mouth/Throat: Mouth: Mucous membranes are moist. Eyes: Pupils: Pupils are equal, round, and reactive to light. Cardiovascular: Rate and Rhythm: Normal rate and regular rhythm. Heart sounds: No murmur heard. Pulmonary: Effort: Pulmonary effort is normal. No respiratory distress. Breath sounds: No wheezing. Abdominal: General: Abdomen is flat. Tenderness: There is no abdominal tenderness. Musculoskeletal: Cervical back: Normal range of motion. Right lower leg: No edema. Left lower leg: No edema. Skin: Capillary Refill: Capillary refill takes less than 2 seconds. Neurological: Mental Status: He is alert and oriented to person, place, and time. Psychiatric: Mood and Affect: Mood normal Scheduled Medications: Medications[1] PRN Medications: Medications[2] Continuous Infusions: Medications[3] Laboratory Data Recent Labs Component Name 05/29/25 0704 05/28/25 0126 02/12/25 1035 WBC 6.9 10.0 11.6* HGB 16.6 15.4 16.1 HCT 50.5 45.7 48.4 PLTCOUNT 210 219 335 MCV 87.1 84.6 81.2 Recent Labs Component Name 02/19/25 0826 12/01/24 2100 12/01/24 1036 11/07/24 0847 10/20/24 1143 09/01/24 1218 09/01/24 0028 PT 12.7 11.9* - 12.6 - - 13.8 INR 1.0 0.9 - 1.0 - - 1.1 PTT - - 30.6 - - 33.2 25.5 - = values in this interval not displayed. Recent Labs Component Name 05/29/25 0704 05/28/25 0126 02/12/25 1035 NA 136 140 142 POTASSIUM 4.4 3.9 4.3 CL 108* 110* 107 CO2 22 24 20* BUN 13 14 17 CREATININE 0.75 0.86 0.77 Recent Labs Component Name 05/29/25 0704 05/28/25 0126 02/12/25 1035 02/02/25 0916 CALCIUM 9.1 8.9 10.0 9.9 PHOS 2.2* - 4.3 3.8 Recent Labs Component Name 05/29/25 0704 05/28/25 0126 02/12/25 1035 02/12/25 1032 02/02/25 0916 PROT - 6.3 8.2 7.4 7.2 ALB 4.4 4.3 4.6 - 4.1 ALKPHOS - 129 214* - 185* AST - 25 13 - 12 ALT - 23 24 - 21 TBILI - 0.3 0.3 - 0.2 Recent Labs Component Name 10/27/24 2143 09/26/24 0605 09/19/24 2027 CKTOTAL 11* <70 9* Recent Labs Component Name 10/27/24 0547 [facility] 8.3* Microbiology Results (Displays last 21 days for this encounter ONLY) No results found for the last [address] Lumbar Spine Wo Contrast Result Date: 05/28/2025 IMPRESSION: 1.No evidence of acute fracture in the thoracic or lumbar spine. 2.Mild to moderate central canal stenosis in the thoracic spine, most pronounced at T10-T11 due to the given of trauma thickening/calcification. 3.Redemonstration of a chronic L3 vertebral body fracture status post kyphopla sty. An irregular lytic lesion and the sclerotic changes with cortical enlargement are noted in theL3 vertebral body. However, the lytic lesion is not well evaluated due to the technique. 4.Redemonstration of posterior spinal fusion at L1 and L5 with laminectomy at L2-L3. 5.Severe central canal stenosis at L3-L4 due to retropulsion and enlargement of the bones, likely severe compression of the nerve roots in the cauda equina at that level. 6.Within the posterior soft tissue at the level of L3 there is an ill-defined 2.7 x 4.9 cm fluid collection extending to the skin surface. This may be postsurgical changes, however recommend correlation for possible infection. > Dictated by Railway Switch Operator I, Natan Modi MD have personally reviewed and interpreted this examination/study. > Interpreting Provider: Natan Modi MD on 05/28/2025 10:[address] Thoracic Spine Wo Contrast Result Date: 05/28/2025 IMPRESSION: 1.No evidence of acute fracture in the thoracic or lumbar spine. 2.Mild to moderate central canal stenosis in the thoracic spine, most pronounced at T10-T11 due to the given of trauma thickening/calcification. 3.Redemonstration of a chronic L3 vertebral body fracture status post kyphopla sty. An irregular lytic lesion and the sclerotic changes with cortical enlargement are noted in theL3 vertebral body. However, the lytic lesion is not well evaluated due to the technique. 4.Redemonstration of posterior spinal fusion at L1 and L5 with laminectomy at L2-L3. 5.Severe central canal stenosis at L3-L4 due to retropulsion and enlargement of the bones, likely severe compression of the nerve roots in the cauda equina at that level. 6.Within the posterior soft tissue at the level of L3 there is an ill-defined 2.7 x 4.9 cm fluid collection extending to the skin surface. This may be postsurgical changes, however recommend correlation for possible infection. > Dictated by Railway Switch Operator I, Natan Modi MD have personally reviewed and interpreted this examination/study. > Interpreting Provider: Natan Modi MD on 05/28/2025 10:09 AM Relevant labs and imaging data reviewed on [facility]. Assessment and Plan HTN (hypertension) (POA: Yes) DM (diabetes mellitus) (HCC) (POA: Yes) MRSA bacteremia (POA: Yes) Multiple myeloma, remission status unspecified (HCC) (POA: Unknown) Acute midline thoracic back pain (POA: Unknown) Acute midline low back pain, unspecified whether sciatica present (POA: Unknown) Assessment & Plan Multiple myeloma, remission status unspecified (HCC) Acute midline thoracic back pain Acute midline low back pain, unspecified whether sciatica present - Multiple spinal surgeries: kyphoplasty, instrumented fusion and laminectomy - Now with worsening back pain and stenosis on CT - Patient previously on Meenu-VRD and was slated for auto stem cell transplant however d/t cirrhosisthey were switched to Revlimid daily - takes eliquis at home due to hypercoaguable effects of Revlimid - home pain management: 20mg oxycodone BID, flexiril and lidocaine PRN Plan: - can bring home Revlimid for patient to continue to use - Neurosurgery onboard, appreciate recs: - no need for MRI as per neurosurgery -Started medrol dose pack for pain 05/28 - resumed home eliquis - continue acyclovir for ppx - pain management as follows: 20mg OxyContin, 5mg oxycodone PRN, dilaudid 0.4 PRN -PT/OT -Will need follow up in 4 weeks and MRI lumber spine OP. -Continue with gabapentin 300mg TID -Laxatives while on opioids for constipation. MRSA bacteremia - complication of L3 kyphoplasty. Treated with antibiotics and currently on doxycycline for furtherppx given presence of multiple hardware in the spine. - follows with ID outpatient Plan: - continue doxycycline ppx DM (diabetes mellitus) (HCC) patient takes jardiance 25mg daily at home -ISS while inpatient HTN (hypertension) -Restart home Losartan Incidental findings requiring follow up: None Diet: DIET REGULAR DVT Prophylaxis: Apixaban Code Status: Full Code Electronically Signed By: Ирина Alamo MD 05/30/2025 7:13 AM The total time spent was 45 minutes performing chart preparation, review of data and visit with thepatient [1] 0.9% NaCl 3 mL Intracatheter q8h acyclovir 400 mg Oral BID apixaban 5 mg Oral BID carvedilol 12.5 mg Oral BID WC doxycycline monohydrate 100 mg Oral q12h famotidine 20 mg Oral QDAY gabapentin 300 mg Oral AT BEDTIME insulin aspart 0-6 Units Subcutaneous q6h [Held by Provider] lenalidomide 10 mg Oral QDAY lidocaine 2 patch Transdermal QDAY loratadine 10 mg Oral QDAY losartan 100 mg Oral QDAY methylPREDNISolone 16 mg Oral QDAY WITH BREAKFAST Followed by [START ON 05/31/2025] methylPREDNISolone 12 mg Oral QDAY WITH BREAKFAST Followed by [START ON 06/01/2025] methylPREDNISolone 8 mg Oral QDAY WITH BREAKFAST Followed by [START ON 06/02/2025] methylPREDNISolone 4 mg Oral QDAY WITH BREAKFAST mirtazapine 15 mg Oral AT BEDTIME montelukast 10 mg Oral AT BEDTIME oxyCODONE CR 12hr 20 mg Oral q12h polyethylene glycol 3350 17 g Oral QDAY sennosides 8.6 mg Oral BID sertraline 50 mg Oral QDAY [2] SALINE LOCK, INSERT AND MAINTAIN AND 0.9% NaCl AND 0.9% NaCl cyclobenzaprine dextrose IV for hypoglycemia OR dextrose IV for hypoglycemia OR glucagon glucose (Diabetic Use) gel HYDROmorphone oxyCODONE (immediate release) [3] * Ирина Alamo MD - 05/29/2025 4:08 PM CDT Images from the original note were not included. [facility] Internal Medicine Progress Note Name: Joselito Nguyen Room[facility]Bed: [facility] : 1980 44 year old PCP: SHEREE Doyle Admit Date/Time: 05/27/2025 11:33 PM LOS: 1 Subjective Interval update: HDS, afebrile. Pain is better this AM (received x2 doses of steroid PO) CBC and RFP were unremarkable. 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 [facility] [place] w/o acute surgical interventions, recommended steroid pack and outpatient lumber spine MRI with follow up in 4 weeks. Pt now pending pain control and PT/OT evaluation. Objective Temp: [97.5 ??F (36.4 ??C)-97.9 ??F (36.6 ??C)] 97.9 ??F (36.6 ??C) Pulse: [46-79] 79 Resp: [12-18] 18 BP: (143-168)/(74-91) 146/91 Weight change: Intake/Output Summary (Last 24 hours) at 05/29/2025 1608 Last data filed at 05/29/2025 1300 Gross per 24 hour Intake 600 ml Output -- Net 600 ml Physical Exam Vitals and nursing note reviewed. Constitutional: Appearance: He is obese. He is not toxic-appearing. HENT: Head: Normocephalic. Nose: Nose normal. Mouth/Throat: Mouth: Mucous membranes are moist. Eyes: Pupils: Pupils are equal, round, and reactive to light. Cardiovascular: Rate and Rhythm: Normal rate and regular rhythm. Heart sounds: No murmur heard. Pulmonary: Effort: Pulmonary effort is normal. No respiratory distress. Breath sounds: No wheezing. Abdominal: General: Abdomen is flat. Tenderness: There is no abdominal tenderness. Musculoskeletal: Cervical back: Normal range of motion. Right lower leg: No edema. Left lower leg: No edema. Skin: Capillary Refill: Capillary refill takes less than 2 seconds. Neurological: Mental Status: He is alert and oriented to person, place, and time. Psychiatric: Mood and Affect: Mood normal. Scheduled Medications: Medications[1] PRN Medications: Medications[2] Continuous Infusions: Medications[3] Laboratory Data Recent Labs Component Name 05/29/25 0704 05/28/25 0126 02/12/25 1035 WBC 6.9 10.0 11.6* HGB 16.6 15.4 16.1 HCT 50.5 45.7 48.4 PLTCOUNT 210 219 335 MCV 87.1 84.6 81.2 Recent Labs Component Name 02/19/25 0826 12/01/24 2100 12/01/24 1036 11/07/24 0847 10/20/24 1143 09/01/24 1218 09/01/24 0028 PT 12.7 11.9* - 12.6 - - 13.8 INR 1.0 0.9 - 1.0 - - 1.1 PTT - - 30.6 - - 33.2 25.5 - = values in this interval not displayed. Recent Labs Component Name 05/29/25 0704 05/28/25 0126 02/12/25 1035 NA 136 140 142 POTASSIUM 4.4 3.9 4.3 CL 108* 110* 107 CO2 22 24 20* BUN 13 14 17 CREATININE 0.75 0.86 0.77 Recent Labs Component Name 05/29/25 0704 05/28/25 0126 02/12/25 1035 02/02/25 0916 CALCIUM 9.1 8.9 10.0 9.9 PHOS 2.2* - 4.3 3.8 Recent Labs Component Name 05/29/25 0704 05/28/25 0126 02/12/25 1035 02/12/25 1032 02/02/25 0916 PROT - 6.3 8.2 7.4 7.2 ALB 4.4 4.3 4.6 - 4.1 ALKPHOS - 129 214* - 185* AST - 25 13 - 12 ALT - 23 24 - 21 TBILI - 0.3 0.3 - 0.2 Recent Labs Component Name 10/27/24 2143 09/26/24 0605 09/19/242026 CKTOTAL 11* <70 9* Recent Labs Component Name 10/27/24 0547 [facility] 8.3* Microbiology Results (Displays last 21 days for this encounter ONLY) No results found for the last [address] Lumbar Spine Wo Contrast Result Date: 05/28/2025 IMPRESSION: 1.No evidence of acute fracture in the thoracic or lumbar spine. 2.Mild to moderate central canal stenosis in the thoracic spine, most pronounced at T10-T11 due to the given of trauma thickening/calcification. 3.Redemonstration of a chronic L3 vertebral body fracture status post kyphopla sty. An irregular lytic lesion and the sclerotic changes with cortical enlargement are noted in theL3 vertebral body. However, the lytic lesion is not well evaluated due to the technique. 4.Redemonstration of posterior spinal fusion at L1 and L5 with laminectomy at L2-L3. 5.Severe central canal stenosis at L3-L4 due to retropulsion and enlargement of the bones, likely severe compression of the nerve roots in the cauda equina at that level. 6.Within the posterior soft tissue at the level of L3 there is an ill-defined 2.7 x 4.9 cm fluid collection extending to the skin surface. This may be postsurgical changes, however recommend correlation for possible infection. > Dictated by Railway Switch Operator I, Natan Modi MD have personally reviewed and interpreted this examination/study. > Interpreting Provider: Natan Modi MD on 05/28/2025 10:[address] Thoracic Spine Wo Contrast Result Date: 05/28/2025 IMPRESSION: 1.No evidence of acute fracture in the thoracic or lumbar spine. 2.Mild to moderate central canal stenosis in the thoracic spine, most pronounced at T10-T11 due to the given of trauma thickening/calcification. 3.Redemonstration of a chronic L3 vertebral body fracture status post kyphopla sty. An irregular lytic lesion and the sclerotic changes with cortical enlargement are noted in theL3 vertebral body. However, the lytic lesion is not well evaluated due to the technique. 4.Redemonstration of posterior spinal fusion at L1 and L5 with laminectomy at L2-L3. 5.Severe central canal stenosis at L3-L4 due to retropulsion and enlargement of the bones, likely severe compression of the nerve roots in the cauda equina at that level. 6.Within the posterior soft tissue at the level of L3 there is an ill-defined 2.7 x 4.9 cm fluid collection extending to the skin surface. This may be postsurgical changes, however recommend correlation for possible infection. > Dictated by Railway Switch Operator I, Natan Modi MD have personally reviewed and interpreted this examination/study. > Interpreting Provider: Natan Modi MD on 05/28/2025 10:09 AM Relevant labs and imaging data reviewed on [facility]. Assessment and Plan MRSA bacteremia (POA: Yes) Multiple myeloma, remission status unspecified (HCC) (POA: Unknown) Acute midline thoracic back pain (POA: Unknown) Acute midline low back pain, unspecified whether sciatica present (POA: Unknown) Assessment & Plan Multiple myeloma, remission status unspecified (HCC) Acute midline thoracic back pain Acute midline low back pain, unspecified whether sciatica present - Multiple spinal surgeries: kyphoplasty, instrumented fusion and laminectomy - Now with worsening back pain and stenosis on CT - Patient previously on Meenu-VRD and was slated for auto stem cell transplant however d/t cirrhosisthey were switched to Revlimid daily - takes eliquis at home due to hypercoaguable effects of Revlimid - home pain management: 20mg oxycodone BID, flexiril and lidocaine PRN Plan: - can bring home Revlimid for patient to continue to use - Neurosurgery onboard, appreciate recs: - no need for MRI -Started medrol dose pack for pain - resumed home eliquis - continue acyclovir for ppx - pain management as follows: 20mg OxyContin, 5mg oxycodone PRN, dilaudid 0.4 PRN -PT/OT -Will need follow up in 4 weeks and MRI lumber spine OP. -Continue with gabapentin 300mg TID -Laxatives while on opioids for constipation. MRSA bacteremia - complication of L3 kyphoplasty. Treated with antibiotics and currently on doxycycline for furtherppx given presence of multiple hardware in the spine. - follows with ID outpatient Plan: - continue doxycycline ppx DM (diabetes mellitus) (HCC) patient takes jardiance 25mg daily at home -ISS while inpatient HTN (hypertension) -Restart home Losartan Incidental findings requiring follow up: N/a Diet: DIET REGULAR DVT Prophylaxis: Apixaban Code Status: Full Code Electronically Signed By: Ирина Alamo MD 05/29/2025 4:08 PM The total time spent was 46 minutes performing chart preparation, review of data and visit with thepatient [1] 0.9% NaCl 3 mL Intracatheter q8h acyclovir 400 mg Oral BID apixaban 5 mg Oral BID carvedilol 12.5 mg Oral BID WC doxycycline monohydrate 100 mg Oral q12h famotidine 20 mg Oral QDAY gabapentin 300 mg Oral AT BEDTIME insulin aspart 0-6 Units Subcutaneous q6h [Held by Provider] lenalidomide 10 mg Oral QDAY lidocaine 2 patch Transdermal QDAY loratadine 10 mg Oral QDAY [Held by Provider] losartan 100 mg Oral QDAY [START ON 05/30/2025] methylPREDNISolone 16 mg Oral QDAY WITH BREAKFAST Followed by [START ON 05/31/2025] methylPREDNISolone 12 mg Oral QDAY WITH BREAKFAST Followed by [START ON 06/01/2025] methylPREDNISolone 8 mg Oral QDAY WITH BREAKFAST Followed by [START ON 06/02/2025] methylPREDNISolone 4 mg Oral QDAY WITH BREAKFAST mirtazapine 15 mg Oral AT BEDTIME montelukast 10 mg Oral AT BEDTIME oxyCODONE CR 12hr 20 mg Oral q12h polyethylene glycol 3350 17 g Oral QDAY sennosides 8.6 mg Oral BID sertraline 50 mg Oral QDAY [2] SALINE LOCK, INSERT AND MAINTAIN AND 0.9% NaCl AND 0.9% NaCl cyclobenzaprine dextrose IV for hypoglycemia OR dextrose IV for hypoglycemia OR glucagon glucose (Diabetic Use) gel HYDROmorphone oxyCODONE (immediate release) [3] * Ирина Alamo MD - 05/29/2025 3:41 PM CDT Family Notification Documentation Person(s) contacted: Cira Pastrana (Significant other) Method of communication: Phone Phone number: [phone] Duration of discussion: 10 minutes Summary of discussion Talked to the patient's , updated her with the plan. She expressed frustration about the care he is getting and asked why his pain under controlled. Updated her that he is on PO and IV opioids (which he was asking for PO) and that he stated that his pain is better with the steroids. The und erstood and asked if I can talk to the nursing staff about his plan care. I updated the nursing staff with this conversation afterwards. * Frieda Jon RN - 05/29/2025 12:44 PM CDT 05/29/25 1115 CM Discharge Planning Living arrangement Spouse/Significant Other Support Systems Spouse/Significant Other Prior to Admission Physical Limitations: Ambulation with use of DME Prior to Admission Requires assistance with: None Equipment at Home Walker Prior Level of Senior Living Type of residence +One Story Entry to home Steps Steps to Enter 3 Expected Discharge Disposition Home Durable Medical Equipment Planning Type of Walker Front Wheeled Walker Transportation Does the patient need discharge transport arranged? No Care Coordination Initial Assessment Expected Discharge Date: 06/01/2025 Expected Discharge Disposition: Home or Self Care Transportation at Discharge: Prior Level of Care: Home Prior to Admit Provider: Comments: CM met with patient at bedside. Per patient he lives with his SO in a one story home with3 steps to enter. Per patient he is independent at home with all ADL's and has a walker at home forwhen he needs it. Per patient he still drives and is on disability and gets about $1157 a month. Per patient he is needing his insurance changed over. CM messaged the [employer] team. Lives with: Spouse/Significant Other Physical Limitations: Ambulation with use of DME Requires Assistance With: None Preferred Pharmacy: [facility] [place] [id number] [facility] [phone] READMISSION RISK SCORE is 20 at 12:44 PM 05/29/2025. Met with patient Family Support (name and phone): Extended Emergency Contact Information Primary Emergency Contact: Cira Pastrana Address: [address] [place] [address] of [employer] Relation: Significant other Patient or new accounts banking representative requests care coordination reach out to family or caregiver listed above regarding discharge planning and at time of discharge? No Durable Medical Equipment Planning Type of Walker: Front Wheeled Walker Traveling Electrician Referral: No Will continue to follow. For any questions or needs please contact: Tape Cutter/Social Work Name/Phone number: Frieda Jon RN * Lucia Rosario RN - 05/28/2025 8:57 PM CDT Pt refusing bed alarm this shift, he is A&Ox$ and has been educated on fall precautions * Nehemiah Cueva RN - 05/28/2025 6:51 PM CDT Patient A&Ox4 patient had mild complaint of pain this shift upon arriving to the floor. Patientreceived 5 mh of oxy. After being settled in, family wheeled patient around to day room. Patient stated pain was better. No change in pain during evening meds. Sitting up eating dinner during rounds.No insulin given for dinner. * Ana Gill MD - 05/28/2025 3:04 PM CDT Images from the original note were not included. [facility] Internal Medicine Progress Note Name: Joselito Nguyen Room/Bed: [facility] : 1980 44 year old PCP: SHEREE Doyle Admit Date/Time: 05/27/2025 11:33 PM LOS: 0 Subjective Interval update: Patient reports feeling good. MRI Th/L pending. Consulted NSGY. Pt has been treated for MM and needs to restart meds once brings them. Hospital course: Joselito Nguyen is a 44 year old male with a past medical history significant for plasmacytoma affecting the L3 vertebral body, multiple myeloma in 06/2024 (was on Meenu-VRD, now on daily Revlimid givenhx of cirrhosis), hx of Hep C infection, type II diabetes, HTN, and hx of IV drug use and meth use who presents to the hospital with lower back pain. Patient underwent L3 kyphoplasty in regards to his plasmacytoma of L3 vertebral body, later developed MRSA bacteremia with questionable enhancing psoas and L3-L4 disc space, infection successfully treated with antibiotics and patient continues with doxycycline for further ppx. Patient with refractory back pain, underwent L1-L5 posterior instrumented fusion and laminectomy L2-L3 by Dr. Rm on 12/02/2024. The patient did very well after the surgical procedure. Last seen in neurosurgery clinic 02/02/2025 with complete resolution of back pain. Pt now presents to [facility] ED from OSH with severe lumbar pain. Patient suggests the pain starts in the lower back and radiates down to his knees, more so in the left leg. The pain this time is severe enoughthat the patient was unable to stand from a seated position without feeling significant pain. Patient denies any focal weakness, bowel or bladder dysfunction. CT L-spine at OSH promoting increased stenosis at L3/4, L5/S1. Pt transferred to [facility] for further workup and Neurosurgical consultation. In the ED pt. Afebrile, HDS, no significant lab abnormalities, and CT lumbar and thoracic spine completed without official read. Objective Temp: [98 ??F (36.7 ??C)-98.1 ??F (36.7 ??C)] 98 ??F (36.7 ??C) Pulse: [51-66] 55 Resp: [18] 18 BP: (97-149)/(59-108) 139/86 Weight change: No intake or output data in the 24 hours ending 05/28/25 1504 Physical Exam: Gen: Alert, cooperative, in no acute distress HEENT: NC/AT, EOMI, no nasal drainage Neck: Supple CV: Regular rate and rhythm. No murmurs appreciated Lungs: Clear to auscultation bilaterally Abdomen: BS+, soft, non-tender, non-distended Extremities: Nontender with normal ROM Skin: Warm, dry Neuro: Alert and oriented to person, place, time and situation Psych: Mood appropriate Scheduled Medications: Medications[1] PRN Medications: Medications[2] Continuous Infusions: Medications[3] Laboratory Data Recent Labs Component Name 05/28/25 0126 02/12/25 1035 02/02/25 0916 WBC 10.0 11.6* 8.9 HGB 15.4 16.1 14.1 HCT 45.7 48.4 42.5 PLTCOUNT 219 335 259 MCV 84.6 81.2 82.8 Recent Labs Component Name 02/19/25 0826 12/01/24 2100 12/01/24 1036 11/07/24 0847 10/20/24 1143 09/01/24 1218 09/01/24 0028 PT 12.7 11.9* - 12.6 - - 13.8 INR 1.0 0.9 - 1.0 - - 1.1 PTT - - 30.6 - - 33.2 25.5 - = values in this interval not displayed. Recent Labs Component Name 05/28/25 0126 02/12/25 1035 02/02/25 0916 NA 140 142 139 POTASSIUM 3.9 4.3 4.2 CL 110* 107 106 CO2 24 20* 19* BUN 14 17 15 CREATININE 0.86 0.77 0.68* Recent Labs Component Name 05/28/25 0126 02/12/25 1035 02/02/25 0916 01/13/25 1124 CALCIUM 8.9 10.0 9.9 9.3 PHOS - 4.3 3.8 2.1* Recent Labs Component Name 05/28/25 0126 02/12/25 1035 02/12/25 1032 02/02/25 0916 PROT 6.3 8.2 7.4 7.2 ALB 4.3 4.6 - 4.1 ALKPHOS 129 214* - 185* AST 25 13 - 12 ALT 23 24 - 21 TBILI 0.3 0.3 - 0.2 Recent Labs Component Name 10/27/24 21409/26/24 0605 09/19/242026 CKTOTAL 11* <70 9* Recent Labs Component Name 10/27/24 0547 [facility] 8.3* Microbiology Results (Displays last 21 days for this encounter ONLY) No results found for the last [address] Lumbar Spine Wo Contrast Result Date: 05/28/2025 IMPRESSION: 1.No evidence of acute fracture in the thoracic or lumbar spine. 2.Mild to moderate central canal stenosis in the thoracic spine, most pronounced at T10-T11 due to the given of trauma thickening/calcification. 3.Redemonstration of a chronic L3 vertebral body fracture status post kyphopla sty. An irregular lytic lesion and the sclerotic changes with cortical enlargement are noted in theL3 vertebral body. However, the lytic lesion is not well evaluated due to the technique. 4.Redemonstration of posterior spinal fusion at L1 and L5 with laminectomy at L2-L3. 5.Severe central canal stenosis at L3-L4 due to retropulsion and enlargement of the bones, likely severe compression of the nerve roots in the cauda equina at that level. 6.Within the posterior soft tissue at the level of L3 there is an ill-defined 2.7 x 4.9 cm fluid collection extending to the skin surface. This may be postsurgical changes, however recommend correlation for possible infection. > Dictated by Railway Switch Operator I, Natan Modi MD have personally reviewed and interpreted this examination/study. > Interpreting Provider: Natan Modi MD on 05/28/2025 10:[address] Thoracic Spine Wo Contrast Result Date: 05/28/2025 IMPRESSION: 1.No evidence of acute fracture in the thoracic or lumbar spine. 2.Mild to moderate central canal stenosis in the thoracic spine, most pronounced at T10-T11 due to the given of trauma thickening/calcification. 3.Redemonstration of a chronic L3 vertebral body fracture status post kyphopla sty. An irregular lytic lesion and the sclerotic changes with cortical enlargement are noted in theL3 vertebral body. However, the lytic lesion is not well evaluated due to the technique. 4.Redemonstration of posterior spinal fusion at L1 and L5 with laminectomy at L2-L3. 5.Severe central canal stenosis at L3-L4 due to retropulsion and enlargement of the bones, likely severe compression of the nerve roots in the cauda equina at that level. 6.Within the posterior soft tissue at the level of L3 there is an ill-defined 2.7 x 4.9 cm fluid collection extending to the skin surface. This may be postsurgical changes, however recommend correlation for possible infection. > Dictated by Railway Switch Operator I, Natan Modi MD have personally reviewed and interpreted this examination/study. > Interpreting Provider: Natan Modi MD on 05/28/2025 10:09 AM Relevant labs and imaging data reviewed on [facility]. Assessment and Plan MRSA bacteremia (POA: Yes) Multiple myeloma, remission status unspecified (HCC) (POA: Unknown) Acute midline thoracic back pain (POA: Unknown) Acute midline low back pain, unspecified whether sciatica present (POA: Unknown) Assessment & Plan Multiple myeloma, remission status unspecified (HCC) Acute midline low back pain, unspecified whether sciatica present Acute midline thoracic back pain - Multiple spinal surgeries: kyphoplasty, instrumented fusion and laminectomy - Now with worsening back pain and stenosis on CT - Patient previously on Meenu-VRD and was slated for auto stem cell transplant however d/t cirrhosisthey were switched to Revlimid daily - takes eliquis at home due to hypercoaguable effects of Revlimid - home pain management: 20mg oxycodone BID, flexiril and lidocaine PRN Plan: - can bring home Revlimid for patient to continue to use - Neurosurgery onboard, appreciate recs - f/u MRI of spine - hold eliquis per neurosurgery recs - continue acyclovir for ppx - pain management as follows: 20mg oxycodone BID, 5mg oxycodone PRN, dilaudid 0.4 PRN, Type 2 diabetes mellitus without complication, unspecified whether oysterman insulin use (HCC) - patient takes jardiance 25mg daily at home Plan: - started low dose SSI Primary hypertension Home: patient suggests they do not currently take any anti-HTN at home and that they were previously on coreg and losartan Plan: - Can restart home medications as needed IVDU (intravenous drug user) Cirrhosis of liver without ascites, unspecified hepatic cirrhosis type (HCC) Hepatitis C virus infection without hepatic coma, unspecified chronicity - Cirrhosis likely 2/2 untreated Hepatitis C. Patient underwent Mavyret treatment via ID outpatientID and was due for Hep C viral load to assess for clearance on 05/29/25. - denies any current IVDU Plan: - Obtain Hep C viral load (?) MRSA bacteremia - complication of L3 kyphoplasty. Treated with antibiotics and currently on doxycycline for furtherppx given presence of multiple hardware in the spine. - follows with ID outpatient Plan: - continue doxycycline Incidental findings requiring follow up: NA Diet: DIET REGULAR DVT Prophylaxis: Holding home eliquis per Neurosurgery recs Code Status: Full Code Bordley Candidate?: Yes Electronically Signed By: Ana Gill MD 05/28/2025 3:04 PM The above assessment and plan will be discussed with attending physician. This note is not final until attested by the attending physician. [1] 0.9% NaCl 3 mL Intracatheter q8h acyclovir 400 mg Oral BID [Held by Provider] apixaban 5 mg Oral BID carvedilol 12.5 mg Oral BID WC doxycycline monohydrate 100 mg Oral q12h famotidine 20 mg Oral QDAY gabapentin 300 mg Oral AT BEDTIME insulin aspart 0-6 Units Subcutaneous q6h [Held by Provider] lenalidomide 10 mg Oral QDAY lidocaine 2 patch Transdermal QDAY loratadine 10 mg Oral QDAY [Held by Provider] losartan 100 mg Oral QDAY mirtazapine 15 mg Oral AT BEDTIME montelukast 10 mg Oral AT BEDTIME oxyCODONE CR 12hr 20 mg Oral q12h polyethylene glycol 3350 17 g Oral QDAY sennosides 8.6 mg Oral BID sertraline 50 mg Oral QDAY [2] SALINE LOCK, INSERT AND MAINTAIN AND 0.9% NaCl AND 0.9% NaCl cyclobenzaprine dextrose IV for hypoglycemia OR dextrose IV for hypoglycemia OR glucagon glucose (Diabetic Use) gel HYDROmorphone oxyCODONE (immediate release) [3] Cosigned by Robb Wakefield MD at 05/29/2025 4:30 PM CDT * Luiz Guy MD - 05/28/2025 1:52 PM CDT NEUROSURGERY PLAN OF CARE NOTE Joselito Nguyen is a 44 year old male who presented to [facility] s/p back pain. Imaging demonstrated intat hardware, no hardware loosening or failure. Patient's exam and imaging have remained stable. At the current time, Joselito Nguyen does not require any further inpatient neurosurgical care. Medications: - Recommend medrol dose pack for pain - If indicated by primary team, from a neurosurgical perspective it is safe to start VTE prophylaxis Activity: - Patient is okay for activity as tolerated from neurosurgery perspective - No brace needed Clinic follow up: - Patient will follow up with Dr. Rm in 4-6 weeks - Imaging at follow up: MRI L spine wo contrast, ordered - Our office will schedule their follow up appointment, or patient can call Centralized Scheduling at [phone] - Neurosurgery follow up information also placed in [facility] discharge navigator Neurosurgery will sign off at this time, please call [phone] with further questions. Luiz Guy MD 05/28/2025 1:52 PM Cosigned by Arya Rm MD at 05/28/2025 2:32 PM CDT documented in this encounter H&P Notes * Tejinder Santiago MD - 05/28/2025 3:10 AM CDT Images from the original note were not included. [facility] Internal Medicine History and Physical Name: Joselito Nguyen [facility] : 1980 44 year old PCP: SHEREE Doyle Chief Complaint Chief Complaint: lower back pain History of Present Illness Joselito Nguyen is a 44 year old male with a past medical history significant for plasmacytoma affecting the L3 vertebral body, multiple myeloma in 06/2024 (was on Meenu-VRD, now on daily Revlimid givenhx of cirrhosis), hx of Hep C infection, type II diabetes, HTN, and hx of IV drug use and meth use who presents to the hospital with lower back pain. Patient underwent L3 kyphoplasty in regards to his plasmacytoma of L3 vertebral body, later developed MRSA bacteremia with questionable enhancing psoas and L3-L4 disc space, infection successfully treated with antibiotics and patient continues with doxycycline for further ppx. Patient with refractory back pain, underwent L1-L5 posterior instrumented fusion and laminectomy L2-L3 by Dr. Rm on 12/02/2024. The patient did very well after the surgical procedure. Last seen in neurosurgery clinic 02/02/2025 with complete resolution of back pain. Pt now presents to [facility] ED from OSH with severe lumbar pain. Patient suggests the pain starts in the lower back and radiates down to his knees, more so in the left leg. The pain this time is severe enoughthat the patient was unable to stand from a seated position without feeling significant pain. Patient denies any focal weakness, bowel or bladder dysfunction. CT L-spine at OSH promoting increased stenosis at L3/4, L5/S1. Pt transferred to [facility] for further workup and Neurosurgical consultation. In the ED pt. Afebrile, HDS, no significant lab abnormalities, and CT lumbar and thoracic spine completed without official read. Review of Symptoms Negative other than what is listed above. Medical and Surgical History Allergies[1] Past Medical History[2] Past Surgical History[3] Current Outpatient Medications Medication Instructions Acetaminophen Extra Strength 500 MG TABS TAKE 2 TABLETS (1,000 MG TOTAL) BY MOUTH EVERY 6 HOURS NEEDED FOR PAIN acyclovir (ZOVIRAX) 400 mg, Oral, 2 TIMES DAILY amLODIPine (NORVASC) 10 mg, Oral, DAILY, Need to follow with primary care amoxicillin (Amoxil) 875 MG tablet Take 1 tablet every 12 hours by oral route for 10 days. apixaban (ELIQUIS) 5 mg, Oral, 2 TIMES DAILY Blood Glucose Monitoring Suppl (Blood Glucose Monitor System) w/Device KIT 1 Each, Does not apply, DIRECTED Blood Glucose Monitoring Suppl (OneTouch Verio Flex System) w/Device KIT USE DIRECTED Blood Glucose Monitoring Suppl (OneTouch Verio) w/Device KIT 1 Box, Does not apply, 3 TIMES DAILY WITH MEALS blood glucose test strip 1 strip, Does not apply, 3 TIMES DAILY BEFORE MEALS, Use one strip to check blood sugar before each meal. One touch verio strips camphor-menthol (Sarna) 0.5-0.5 % lotion Topical, 3 TIMES DAILY PRN carvedilol (Coreg) 12.5 MG tablet TAKE 1 TABLET TWICE A DAY BY ORAL ROUTE FOR 90 DAYS. Continuous Glucose Still Operator Whiskey (Dexcom G7 Still Operator Whiskey) NOREEN DIRECTED Continuous Glucose Sensor (Dexcom G7 Sensor) MISC DIRECTED cyclobenzaprine (FLEXERIL) 10 mg, Oral, 3 TIMES DAILY PRN docusate sodium (COLACE) 100 mg, Oral, 2 TIMES DAILY doxycycline hyclate (VIBRAMYCIN) 100 mg doxycycline hyclate 100 mg, Oral, 2 TIMES DAILY famotidine (PEPCID) 40 mg, Oral, DAILY fexofenadine (Joceline) 180 MG tablet 1 tablet, DAILY gabapentin (Neurontin) 300 MG capsule Take 1 (one) capsule by mouth 2 times daily for 60 days, THEN2 (two) capsules at bedtime for 60 days. hydrOXYzine HCl (ATARAX) 25 mg, Oral, 4 TIMES DAILY PRN insulin aspart (NOVOLOG) 5 Units, Subcutaneous, 3 TIMES DAILY WITH MEALS insulin glargine (LANTUS) 10 Units, Subcutaneous, EVERY 24 HOURS Jardiance 25 MG tablet Take 1 tablet every day by oral route for 90 days. Lancets (ONETOUCH DELICA PLUS 33G EXTRA FINE LANCET) USE ONE LANCET 3 TIMES A DAY lenalidomide (REVLIMID) 10 mg, Oral, DAILY lidocaine (Lidoderm) 4 % patch 1 patch, Transdermal, DAILY, Apply patch to most painful area and remove after 12 hours. May reapply a new patch 12 hours later. losartan (COZAAR) 100 mg, Oral, DAILY, Need to follow with primary care mirtazapine (REMERON) 15 mg, Oral Nutritional Supplements (Ensure High Protein) LIQD 2 cans, Oral, 2 TIMES DAILY ondansetron (disintegrating) (ZOFRAN ODT) 8 mg, Oral, EVERY 8 HOURS, Allow tablet to dissolve on the tongue ondansetron (Zofran) 8 MG tablet 1 tablet, EVERY 8 HOURS PRN oxyCODONE (immediate release) (ROXICODONE) 5 mg, Oral, EVERY 6 HOURS PRN oxyCODONE CR 12hr (OXYCONTIN) 20 mg, Oral, EVERY 12 HOURS prochlorperazine (COMPAZINE) 10 mg, Oral, EVERY 6 HOURS PRN sennosides (Senokot) 8.6 MG tablet TAKE ONE TABLET BY MOUTH 2 TIMES A DAY FOR 10 DAYS sertraline (ZOLOFT) 50 mg, Oral, DAILY TRUEplus 5-Bevel Pen Paola 31G X 6 MM [facility] USE TO INJECT INSULIN 3 TIMES DAILY Social and Family History Social History Socioeconomic History Marital status: Significant Other Spouse name: Not on file Number of children: Not on file Years of education: Not on file Highest education level: Not on file Occupational History Not on file Tobacco Use Smoking status: Former Current packs/day: 1.50 Average packs/day: 1.5 packs/day for 33.8 years (50.7 ttl pk-yrs) Types: Cigarettes Start date: 08/20/1991 Passive exposure: Past Smokeless tobacco: Never Vaping Use Vaping status: Never Used Substance and Sexual Activity Alcohol use: Not Currently Comment: rarely Drug use: Yes Types: Marijuana, Heroin, Cocaine Comment: Marijuana yesterday. [id number] and heroin 2010 Sexual activity: Not on file Other Topics Concern Not on file Social History Narrative Not on file Social Drivers of Health Financial Resource Strain: High Risk (11/23/2024) Overall Financial Resource Strain (CARDIA) Difficulty of Paying Living Expenses: Very hard Food Insecurity: Patient Declined (11/23/2024) Hunger Vital Sign Worried About Running Out of Food in the Last Year: Patient declined Ran Out of Food in the Last Year: Patient declined Transportation Needs: Unmet Transportation Needs (11/23/2024) PRAPARE - Transportation Lack of Transportation (Medical): Yes Lack of Transportation (Non-Medical): No Stress: Stress Concern Present (11/23/2024) [place] [employer] - Occupational Stress Questionnaire Feeling of Stress : Very much Housing Stability: High Risk (11/23/2024) Housing Stability Vital Sign Unable to Pay for Housing in the Last Year: Yes Number of Times Moved in the Last Year: 0 Homeless in the Last Year: No Family History[4] Objective Recent Vitals: Temp: [98.1 ??F (36.7 ??C)] 98.1 ??F (36.7 ??C) Pulse: [59] 59 Resp: [18] 18 BP: (138)/(73) 138/73 Weight change: No intake or output data in the 24 hours ending 05/28/25 0311 Physical Exam: Gen: Alert, cooperative, in no acute distress HEENT: NC/AT, EOMI, no nasal drainage Neck: Supple CV: Regular rate and rhythm. No murmurs appreciated Lungs: Clear to auscultation bilaterally Abdomen: BS+, soft, non-tender, non-distended Extremities: Nontender with normal ROM Skin: Warm, dry Neuro: Alert and oriented to person, place, time and situation Psych: Mood appropriate Laboratory Data Recent Labs Component Name 05/28/25 0126 02/12/25 1035 02/02/25 0916 WBC 10.0 11.6* 8.9 HGB 15.4 16.1 14.1 HCT 45.7 48.4 42.5 PLTCOUNT 219 335 259 MCV 84.6 81.2 82.8 Recent Labs Component Name 02/19/25 0826 12/01/24 2100 12/01/24 1036 11/07/24 0847 10/20/24 1143 09/01/24 1218 09/01/24 0028 PT 12.7 11.9* - 12.6 - - 13.8 INR 1.0 0.9 - 1.0 - - 1.1 PTT - - 30.6 - - 33.2 25.5 - = values in this interval not displayed. Recent Labs Component Name 05/28/25 0126 02/12/25 1035 02/02/25 0916 NA 140 142 139 POTASSIUM 3.9 4.3 4.2 CL 110* 107 106 CO2 24 20* 19* BUN 14 17 15 CREATININE 0.86 0.77 0.68* Recent Labs Component Name 05/28/25 0126 02/12/25 1035 02/02/25 0916 01/13/25 1124 CALCIUM 8.9 10.0 9.9 9.3 PHOS - 4.3 3.8 2.1* Recent Labs Component Name 05/28/25 0126 02/12/25 1035 02/12/25 1032 02/02/25 0916 PROT 6.3 8.2 7.4 7.2 ALB 4.3 4.6 - 4.1 ALKPHOS 129 214* - 185* AST 25 13 - 12 ALT 23 24 - 21 TBILI 0.3 0.3 - 0.2 Recent Labs Component Name 10/27/24 2143 09/26/24 0605 09/19/24 2027 CKTOTAL 11* <70 9* Recent Labs Component Name 10/27/24 0547 [facility] 8.3* Microbiology Results (Displays last 21 days for this encounter ONLY) No results found for the last 504 hours. Imaging No results found. EKG Interpretation: N/A Relevant labs and imaging data reviewed on [facility] Assessment and Plan Multiple myeloma, remission status unspecified (HCC) (POA: Unknown) Acute midline thoracic back pain (POA: Unknown) Acute midline low back pain, unspecified whether sciatica present (POA: Unknown) Assessment & Plan Multiple myeloma, remission status unspecified (HCC) Acute midline low back pain, unspecified whether sciatica present Acute midline thoracic back pain - Multiple spinal surgeries: kyphoplasty, instrumented fusion and laminectomy - Now with worsening back pain and stenosis on CT - Patient previously on Meenu-VRD and was slated for auto stem cell transplant however d/t cirrhosisthey were switched to Revlimid daily - takes eliquis at home due to hypercoaguable effects of Revlimid - home pain management: 20mg oxycodone BID, flexiril and lidocaine PRN Plan: - can bring home Revlimid for patient to continue to use - Neurosurgery onboard, appreciate recs - f/u MRI of spine - hold eliquis per neurosurgery recs - continue acyclovir for ppx - pain management as follows: 20mg oxycodone BID, 5mg oxycodone PRN, dilaudid 0.4 PRN, Type 2 diabetes mellitus without complication, unspecified whether oysterman insulin use (HCC) - patient takes jardiance 25mg daily at home Plan: - started low dose SSI Primary hypertension Home: patient suggests they do not currently take any anti-HTN at home and that they were previously on coreg and losartan Plan: - Can restart home medications as needed Hepatitis C virus infection without hepatic coma, unspecified chronicity Cirrhosis of liver without ascites, unspecified hepatic cirrhosis type (HCC) IVDU (intravenous drug user) - Cirrhosis likely 2/2 untreated Hepatitis C. Patient underwent Mavyret treatment via ID outpatientID and was due for Hep C viral load to assess for clearance on 05/29/25. - denies any current IVDU Plan: - Obtain Hep C viral load (?) MRSA bacteremia - complication of L3 kyphoplasty. Treated with antibiotics and currently on doxycycline for furtherppx given presence of multiple hardware in the spine. - follows with ID outpatient Plan: - continue doxycycline Incidental findings requiring follow up: N/A Diet: No diet orders on file DVT Prophylaxis: Holding home eliquis per Neurosurgery recs Goals of Care: Advance Care Planning Goals of Care Current active code status Full Code POA/Surrogate Decision Maker: ZeinaCira (Significant other) Romina Candidate?: No Electronically Signed By: Tejinder Santiago MD Date of Service: 05/28/2025 The above assessment and plan will be discussed with attending physician. This note is not final until attested by the attending physician. [1] Allergies Allergen Reactions Ms Contin [Morphine] Rash Vancomycin Rash Red man's syndrome [2] Past Medical History: Diagnosis Date Acute osteomyelitis of lumbar spine (HCC) 11/20/2024 Acute septic pulmonary embolism without acute cor pulmonale (HCC) 10/14/2024 Agitated Elevated LFTs 11/20/2024 Hepatic cirrhosis due to chronic hepatitis C infection (HCC) 02/27/2025 History of illicit drug use 10/14/2024 Multiple myeloma (HCC) Orthopedic hardware present 12/18/2024 Type 2 diabetes mellitus without complications (HCC) Viral hepatitis C without hepatic coma [3] Past Surgical History: Procedure Laterality Date Appendectomy DEBRIDEMENT N/A 09/15/2024 N/A; IRRIGATION/DEBRIDEMENT XYPHOID ABSCESS WOUND EXCISION/DESTRUCTION TISSUE/LESION N/A 06/08/2024 N/A; Lumbar three bone biopsy Kyphoplasty N/A 07/22/2024 N/A; L3 radiofrequency ablation and kyphoplasty LIVER BIOPSY N/A 02/19/2025 N/A; BIOPSY LIVER (NEEDLE/PERCUTANEOUS)--plt 335, stat INR LUMBAR SPINE FUSION N/A 12/02/2024 N/A; lumbar one-five posterior instrumented fusion, lumbar two three laminectomy [4] Family History Problem Relation Name Age of Onset Cancer - Thyroid Sister Cancer - Colon Paternal Grandfather Cosigned by Robb Wakefield MD at 05/28/2025 12:25 PM CDT Associated attestation - Robb Wakefield MD - 05/28/2025 12:25 PM CDT I have seen and examined the patient with the resident and I agree with the findings and plan of care as documented by the resident. Date of Service: 05/28/2025 Robb Wakefield MD documented in this encounter Consult Notes * Lei Conroy MD - 05/28/2025 1:08 AM CDT Neurosurgery Spine Consult Note Name: Joselito Nguyen : 1980 Date of Admission:05/27/2025 Date of Consult:05/28/2025 1:08 AM Time of Evaluation: 01:19 Chief Complaint (CC): Back pain HISTORY OF PRESENT ILLNESS (HPI): Patient is a 44 year old male with history of a plasmacytoma affecting the L3 vertebral body. The patient was ultimately submitted to an L3 kyphoplasty by Dr. Rm in June 2024. He later presented with MRSA bacteremia from unclear source and some questionable enhancing in his psoas and L3-L4disc space. He was successfully treated with antibiotics. The patient had refractory mechanical axial back pain. Therefore he was ultimately submitted to an L1-L5 posterior instrumented fusion and laminectomy L2-L3 by Dr. Rm on 12/02/2024. The patient did very well after the surgical procedure. Last seen in clinic 02/02/2025 with complete resolution of back pain. Pt now presents to [facility] ED from OSH with severe lumbar pain. CT L-spine at OSH promoting increased stenosis at L3/4, L5/S1. Pt transferred to [facility] for further workup and Neurosurgical consultation. Pt denies bowel or bladder dysfunction. Pt states he takes daily Eliquis for VTE ppx related to chemotherapy [facility] NEURO SPINAL SURGERY HIGH RISK VARIABLES None currently present Past Medical History: Diagnosis Date Acute osteomyelitis of lumbar spine (HCC) 11/20/2024 Acute septic pulmonary embolism without acute cor pulmonale (HCC) 10/14/2024 Agitated Elevated LFTs 11/20/2024 Hepatic cirrhosis due to chronic hepatitis C infection (HCC) 02/27/2025 History of illicit drug use 10/14/2024 Multiple myeloma (HCC) Orthopedic hardware present 12/18/2024 Type 2 diabetes mellitus without complications (HCC) Viral hepatitis C without hepatic coma Past Surgical History[1] Allergies[2] Current Medications Acetaminophen Extra Strength 500 MG TABS TAKE 2 TABLETS (1,000 MG TOTAL) BY MOUTH EVERY 6 HOURS NEEDED FOR PAIN acyclovir (Zovirax) 400 MG tablet Take 1 (one) tablet by mouth 2 times daily amLODIPine (Norvasc) 10 MG tablet Take 1 (one) tablet by mouth once daily Need to follow with primary care amoxicillin (Amoxil) 875 MG tablet Take 1 tablet every 12 hours by oral route for 10 days. apixaban (Eliquis) 5 MG tablet Take 1 (one) tablet by mouth 2 times daily Blood Glucose Monitoring Suppl (Blood Glucose Monitor System) w/Device KIT Use 1 Each as directed Blood Glucose Monitoring Suppl (Züm XRTouch Verio Flex System) w/Device KIT USE DIRECTED Blood Glucose Monitoring Suppl (OneTouch Verio) w/Device KIT Use 1 Box 3 times daily with meals blood glucose test strip Use 1 (one) strip 3 times daily before meals Use one strip to check blood sugar before each meal. One touch verio strips camphor-menthol (Sarna) 0.5-0.5 % lotion Apply to affected area 3 times daily as needed for Itching carvedilol (Coreg) 12.5 MG tablet TAKE 1 TABLET TWICE A DAY BY ORAL ROUTE FOR 90 DAYS. Continuous Glucose Still Operator Whiskey (3C Pluscom G7 Still Operator Whiskey) NOREEN as directed Continuous Glucose Sensor (Dexcom G7 Sensor) MISC as directed cyclobenzaprine (Flexeril) 10 MG tablet Take 1 (one) tablet by mouth 3 times daily as needed for Muscle Spasms docusate sodium (Colace) 100 MG capsule Take 1 (one) capsule by mouth 2 times daily doxycycline hyclate (Vibramycin) 100 MG capsule Take 1 (one) capsule by mouth doxycycline hyclate 100 MG tablet Take 1 (one) tablet by mouth 2 times daily famotidine (Pepcid) 40 MG tablet Take 1 (one) tablet by mouth once daily fexofenadine (Joceline) 180 MG tablet Take 1 (one) tablet by mouth once daily gabapentin (Neurontin) 300 MG capsule Take 1 (one) capsule by mouth 2 times daily for 60 days, THEN2 (two) capsules at bedtime for 60 days. hydrOXYzine HCl (Atarax) 25 MG tablet TAKE 1 (ONE) TABLET BY MOUTH 4 TIMES DAILY NEEDED FOR ITCHING insulin aspart (NovoLOG) pen Inject 5 (five) Units subcutaneously 3 times daily with meals insulin glargine (Lantus/Semglee) 100 units/mL pen Inject 10 (ten) Units subcutaneously every 24 hours for 30 days Jardiance 25 MG tablet Take 1 tablet every day by oral route for 90 days. Lancets (DokogeoTOUCH DELICA PLUS 33G EXTRA FINE LANCET) USE ONE LANCET 3 TIMES A DAY lenalidomide (Revlimid) 10 MG capsule Take 1 (one) capsule by mouth once daily for 28 days lidocaine (Lidoderm) 4 % patch Apply 1 (one) patch to skin once daily Apply patch to most painful area and remove after 12 hours. May reapply a new patch 12 hours later. losartan (Cozaar) 100 MG tablet Take 1 (one) tablet by mouth once daily Need to follow with primarycare mirtazapine (Remeron) 15 MG tablet TAKE 1 TABLET BY MOUTH EVERYDAY AT BEDTIME Nutritional Supplements (Ensure High Protein) LIQD Take 2 cans by mouth 2 times daily Reasons: Ensure High Protein twice a day ondansetron (Zofran) 8 MG tablet Take 1 (one) tablet by mouth every 8 hours as needed ondansetron, disintegrating, (Zofran ODT) 8 MG tablet Take 1 (one) tablet by mouth every 8 hours Allow tablet to dissolve on the tongue oxyCODONE CR 12hr (OxyCONTIN) 20 MG tablet Take 1 (one) tablet by mouth every 12 hours oxyCODONE, immediate release, (Roxicodone) 5 MG tablet Take 1 (one) tablet by mouth every 6 hours as needed for Pain prochlorperazine (Compazine) 10 MG tablet Take 1 (one) tablet by mouth every 6 hours as needed for Nausea/Vomiting sennosides (Senokot) 8.6 MG tablet TAKE ONE TABLET BY MOUTH 2 TIMES A DAY FOR 10 DAYS sertraline (Zoloft) 50 MG tablet TAKE 1 TABLET BY MOUTH EVERY DAY TRUEplus 5-Bevel Pen [place] 31G X 6 MM [facility] USE TO INJECT INSULIN 3 TIMES DAILY Medications[3] Social History Tobacco Use Smoking status: Former Current packs/day: 1.50 Average packs/day: 1.5 packs/day for 33.8 years (50.7 ttl pk-yrs) Types: Cigarettes Start date: 08/20/1991 Passive exposure: Past Smokeless tobacco: Never Substance Use Topics Alcohol use: Not Currently Comment: rarely Family History[4] REVIEW OF SYSTEMS Deferred PHYSICAL EXAM BP 138/73 Pulse 59 Temp 98.1 ??F (36.7 ??C) (Oral) Resp 18 Ht 1.829 m (6') Wt 113.4 kg (250 lb) SpO2 95% General: NAD Neuro: Mental status: Alert, attentive, and oriented. Speech is clear and fluent. Cranial nerves: Grossly intact Motor: Muscle bulk and tone are normal. Deltoid Bicep Tricep Floorworker Lasting Wrist Ext Finger ext Hip Flexor Quad Hamstring Tib Ant Gastroc EHL Right 5 5 5 5 5 5 4* 5 5 5 5 5 Left 5 5 5 5 5 5 4+* 5 5 5 5 5 Reflexes: Plantar responses are flexor. No clonus. Sensory: Light touch, pinprick, position sense, and vibration sense are intact in fingers and toes. Coordination: There are no abnormal or extraneous movements. Pt endorses point tenderness to lumbar spine LABORATORY Recent Labs Component Name 02/12/25 1035 WBC 11.6* HGB 16.1 HCT 48.4 PLTCOUNT 335 Recent Labs Component Name 02/12/25 1035 NA 142 POTASSIUM 4.3 CO2 20* BUN 17 CREATININE 0.77 GLUCOSE 150* Recent Labs Component Name 02/19/25 [address] Lumbar Spine WO Contrast 19:14 05/27/2025: FINDINGS: 5 nonrib-bearing lumbar-type vertebral bodies. Vertebroplasty cement at L3. Uncomplicated appearing posterior fusion hardware spanning L1-L5. Posterior element decompression at the inferior aspect of L2 and superior aspect of L3. 2 mm retrolisthesis at L3-4. Multilevel degenerative disc disease, severe at L5-S1. Moderate facet arthropathy at all lumbar levels. Severe central canal stenosis at L3. The canal is obscured in multiple levels due to metal artifact. Severe bilateral neural foraminal narrowing at L3-4 and L5-S1 secondary to degenerative changes. Mixed lytic and sclerotic area in the posterior superior iliac spine on the left, likely hemangioma or prior bone harvest site. IMPRESSION: No acute osseous finding in the lumbar spine. Posterior fusion spanning L1-L5, with vertebroplasty cement at L3. No CT evidence of hardware related complication. Severe central canal stenosis at L3 secondary to degenerative change. Severe bilateral neural foraminal narrowing at L3-4 and L5-S1 secondary to degenerative changes. Assessment: 44 year old male with history of a plasmacytoma affecting the L3 vertebral body. The patient was ultimately submitted to an L3 kyphoplasty by Dr. Rm in June 2024. He later presented with MRSA bacteremia from unclear source and some questionable enhancing in his psoas and L3-L4 disc space. He was successfully treated with antibiotics. The patient had refractory mechanical axial back pain.Therefore he was ultimately submitted to an L1-L5 posterior instrumented fusion and laminectomy L2-L3 by Dr. Rm on 12/02/2024. The patient did very well after the surgical procedure. Pt now presents to [facility] ED from OSH with severe lumbar pain. CT L-spine at OSH promoting increased stenosis at L3/4 , L5/S1. Pt transferred to [facility] for further workup and Neurosurgical consultation. Plan: - Continue to monitor neurologic exam Q4 hours - Please obtain MRI Lumbar Spine WO Contrast - Recommend admission to Medicine for pain control - Recommend holding anticoagulation/antiplatelet medications at this time - Page Neurosurgery and obtain STAT head CT with decline in neuro exam - Overall care per trauma surgery Case to be discussed with Dr. Conroy. Moe Gordon, ASSISTANCE COORDINATOR-LOGISTICS ANALYTICS MANAGER 05/28/2025 1:08 AM NEUROSURGERY ATTENDING ATTESTATION: Patient case fully discussed with the neurosurgery team. Imaging and laboratory results reviewed aswell. I reviewed and edited the Nurse Practitioner's note as needed, and agree with the assessment and plan. Patient known to the neurosurgery team, Dr. Rm performed surgical decompression and fixation. Recovering well now with back pain in the ER. I reveiwed Ct lumbar spine, hardware in placed. There is remnant of the inferior L3 lamina, appears to have stenosis there. May consider MRI to assess neural elements for compression. Multi modal pain management. Will discuss with Dr. Rm as well. Lei Conroy MD Neurosurgery [1] Past Surgical History: Procedure Laterality Date Appendectomy DEBRIDEMENT N/A 09/15/2024 N/A; IRRIGATION/DEBRIDEMENT XYPHOID ABSCESS WOUND EXCISION/DESTRUCTION TISSUE/LESION N/A 06/08/2024 N/A; Lumbar three bone biopsy Kyphoplasty N/A 07/22/2024 N/A; L3 radiofrequency ablation and kyphoplasty LIVER BIOPSY N/A 02/19/2025 N/A; BIOPSY LIVER (NEEDLE/PERCUTANEOUS)--plt 335, stat INR LUMBAR SPINE FUSION N/A 12/02/2024 N/A; lumbar one-five posterior instrumented fusion, lumbar two three laminectomy [2] Allergies Allergen Reactions Ms Contin [Morphine] Rash Vancomycin Rash Red man's syndrome [3] No current facility-administered medications for this encounter. Current Outpatient Medications Medication Acetaminophen Extra Strength 500 MG TABS acyclovir (Zovirax) 400 MG tablet amLODIPine (Norvasc) 10 MG tablet amoxicillin (Amoxil) 875 MG tablet apixaban (Eliquis) 5 MG tablet Blood Glucose Monitoring Suppl (Blood Glucose Monitor System) w/Device KIT Blood Glucose Monitoring Suppl (OneTouch Verio Flex System) w/Device KIT Blood Glucose Monitoring Suppl (OneTouch Verio) w/Device KIT blood glucose test strip camphor-menthol (Sarna) 0.5-0.5 % lotion carvedilol (Coreg) 12.5 MG tablet Continuous Glucose Still Operator Whiskey (Dexcom G7 Still Operator Whiskey) NOREEN Continuous Glucose Sensor (Dexcom G7 Sensor) MISC cyclobenzaprine (Flexeril) 10 MG tablet docusate sodium (Colace) 100 MG capsule doxycycline hyclate (Vibramycin) 100 MG capsule doxycycline hyclate 100 MG tablet famotidine (Pepcid) 40 MG tablet fexofenadine (Joceline) 180 MG tablet gabapentin (Neurontin) 300 MG capsule hydrOXYzine HCl (Atarax) 25 MG tablet insulin aspart (NovoLOG) pen insulin glargine (Lantus/Semglee) 100 units/mL pen Jardiance 25 MG tablet Lancets (ONETOUCH DELICA PLUS 33G EXTRA FINE LANCET) lenalidomide (Revlimid) 10 MG capsule lidocaine (Lidoderm) 4 % patch losartan (Cozaar) 100 MG tablet mirtazapine (Remeron) 15 MG tablet Nutritional Supplements (Ensure High Protein) LIQD ondansetron (Zofran) 8 MG tablet ondansetron, disintegrating, (Zofran ODT) 8 MG tablet oxyCODONE CR 12hr (OxyCONTIN) 20 MG tablet oxyCODONE, immediate release, (Roxicodone) 5 MG tablet prochlorperazine (Compazine) 10 MG tablet sennosides (Senokot) 8.6 MG tablet sertraline (Zoloft) 50 MG tablet TRUEplus 5-Bevel Pen [place]ola 31G X 6 MM MISC [4] Family History Problem Relation Name Age of Onset Cancer - Thyroid Sister Cancer - Colon Paternal Grandfather documented in this encounter ED Notes * Giffhorn, Tavo J, RN - 05/28/2025 9:10 AM CDT Assuming care of pt. Pt is A&OX4. Pt updated on POC. Pt appears in NAD at this time. Pt on media monitor. * Alejandra Whitehead RN - 05/28/2025 5:19 AM CDT Bed: AC09 Expected date: Expected time: Means of arrival: Comments: AC 30 * Cristian Garcia MD - 05/28/2025 1:38 AM CDT Emergency Medicine Attending Note Chief Complaint Patient presents with Pain Back Pt BIBEMS tx from [facility] [place] for complications s/p back surgery. HX L3 multiple Myeloma. Ptreports walking around doing chores then sat down. After attempting to stand up, pt felt sudden sharp pain in his lumbar, pins and needles BLE, unable to stand. PMS intact, DP 2+. Joselito Nguyen is a 44 year old male h/o plastocytoma, septic PE, DM2 presenting to the ED for backpain. Pt states the back pain started last afternoon. Pt states states they got home from work and were sitting on the couch when the lower back pain started. Pt states the pain is radiating down both legs, worse on the L than R. Pt states the pain worsens with movement, endorsing LE weakness and gait instability. Pt states he had toe tingling that has resolved. Pt denies any numbness. Past Medical History[1] Past Surgical History[2] Social History Socioeconomic History Marital status: Significant Other Spouse name: Not on file Number of children: Not on file Years of education: Not on file Highest education level: Not on file Occupational History Not on file Tobacco Use Smoking status: Former Current packs/day: 1.50 Average packs/day: 1.5 packs/day for 33.8 years (50.7 ttl pk-yrs) Types: Cigarettes Start date: 08/20/1991 Passive exposure: Past Smokeless tobacco: Never Vaping Use Vaping status: Never Used Substance and Sexual Activity Alcohol use: Not Currently Comment: rarely Drug use: Yes Types: Marijuana, Heroin, Cocaine Comment: Marijuana yesterday. [id number] and heroin 2010 Sexual activity: Not on file Other Topics Concern Not on file Social History Narrative Not on file Social Drivers of Health Financial Resource Strain: High Risk (11/23/2024) Overall Financial Resource Strain (CARDIA) Difficulty of Paying Living Expenses: Very hard Food Insecurity: Patient Declined (11/23/2024) Hunger Vital Sign Worried About Running Out of Food in the Last Year: Patient declined Ran Out of Food in the Last Year: Patient declined Transportation Needs: Unmet Transportation Needs (11/23/2024) PRAPARE - Transportation Lack of Transportation (Medical): Yes Lack of Transportation (Non-Medical): No Stress: Stress Concern Present (11/23/2024) [employer] [place] [employer] - Occupational Stress Questionnaire Feeling of Stress : Very much Housing Stability: High Risk (11/23/2024) Housing Stability Vital Sign Unable to Pay for Housing in the Last Year: Yes Number of Times Moved in the Last Year: 0 Homeless in the Last Year: No Allergies[3] Review of Systems: (+) positive Review of Systems Constitutional: Negative for chills, fever and malaise/fatigue. Eyes: Negative for blurred vision, pain and discharge. Respiratory: Negative for shortness of breath. Cardiovascular: Negative for chest pain and palpitations. Gastrointestinal: Negative for abdominal pain and vomiting. Genitourinary: Negative for dysuria and frequency. Musculoskeletal: Positive for back pain and myalgias. Negative for joint pain. Neurological: Positive for tingling and weakness. Negative for sensory change and focal weakness. ROS as above in HPI otherwise noncontributory. Physical Exam Vitals: 05/27/25 2330 BP: 138/73 Pulse: 59 Resp: 18 Temp: 98.1 ??F (36.7 ??C) SpO2: 95% Weight: 113.4 kg (250 lb) Height: 1.829 m (6') Physical Exam Vitals and nursing note reviewed. Constitutional: General: He is in acute distress. Appearance: He is not diaphoretic. HENT: Head: Normocephalic and atraumatic. Mouth/Throat: Mouth: Mucous membranes are moist. Eyes: General: No scleral icterus. Extraocular Movements: Extraocular movements intact. Conjunctiva/sclera: Conjunctivae normal. Pupils: Pupils are equal, round, and reactive to light. Cardiovascular: Rate and Rhythm: Normal rate and regular rhythm. Pulses: Normal pulses. Heart sounds: No murmur heard. Pulmonary: Effort: Pulmonary effort is normal. No respiratory distress. Breath sounds: Normal breath sounds. No wheezing. Abdominal: General: There is no distension. Palpations: Abdomen is soft. Tenderness: There is no abdominal tenderness. Musculoskeletal: General: No swelling or deformity. Normal range of motion. Cervical back: Normal range of motion and neck supple. Skin: General: Skin is warm and dry. Findings: No bruising. Comments: Lumbar spine TTP Pain elicited with knee flexion and extension, worse on left Neurological: General: No focal deficit present. Mental Status: He is alert and oriented to person, place, and time. Motor: Weakness present. Comments: CARREON spontaneously and equally. Psychiatric: Mood and Affect: Mood normal. Behavior: Behavior normal. Medical Decision Makin44 year old male with above history brought for evaluation of back pain. DDx: Cauda equina vs stenosis vs infection vs epidural abscess vs malignancy vs other. Plan is for MRI, labs, pain control, neurosurgery consult, admit to IM. I also externally reviewed previous records that I had access to within [facility] and noted relevant statements in my HPI. 1. Work Up - See lab and radiology orders 2. Therapy - See orders Social determinants of health: Social Drivers of Health Tobacco Use: High Risk (04/06/2025) Received from [facility] Patient History Smoking Tobacco Use: Every Day Smokeless Tobacco Use: Never Passive Exposure: Not on file Alcohol Use: Not At Risk (11/23/2024) AUDIT-C Frequency of Alcohol Consumption: Never Average Number of Drinks: Patient does not drink Frequency of Binge Drinking: Never Financial Resource Strain: High Risk (11/23/2024) Overall Financial Resource Strain (CARDIA) Difficulty of Paying Living Expenses: Very hard Food Insecurity: Patient Declined (11/23/2024) Hunger Vital Sign Worried About Running Out of Food in the Last Year: Patient declined Ran Out of Food in the Last Year: Patient declined Transportation Needs: Unmet Transportation Needs (11/23/2024) PRAPARE - Transportation Lack of Transportation (Medical): Yes Lack of Transportation (Non-Medical): No Stress: Stress Concern Present (11/23/2024) [employer] [employer] - Occupational Stress Questionnaire Feeling of Stress : Very much Depression: Not at risk (11/20/2024) PHQ-2 PHQ-2 Score: 0 Housing Stability: High Risk (11/23/2024) Housing Stability Vital Sign Unable to Pay for Housing in the Last Year: Yes Number of Times Moved in the Last Year: 0 Homeless in the Last Year: No Data Review: (All Labs/Imaging/ECG, other diagnostics independently interpreted by me.) Amount and/or Complexity of Data Reviewed medical complexity: medical complexity, Triage notes and available nursing notes reviewed , Clinical lab tests: ordered and reviewed, Tests in the radiology section of CPT??: ordered and independent interpretation, Independent visualization of images: yes, Decide to obtain previous medical records or to obtain history from someone other than the patient: yes, see HPI , and Discuss the patient with other providers: yes The patient's Oxygen Saturation Monitor was interpreted by me. The reading was 95%. The patient wason RA at the time of the reading. This is interpreted as normal. - LABS: Labs Reviewed CBC W AUTO DIFFERENTIAL - Abnormal; Notable for the following components: Result Value RDW-CV 14.9 (*) Monocyte % 11.2 (*) Monocyte Absolute 1.12 (*) All other components within normal limits COMPREHENSIVE METABOLIC PANEL - Abnormal; Notable for the following components: Chloride 110 (*) Glucose 107 (*) All other components within normal limits URINALYSIS REFLEX MICROSCOPIC REFLEX CULTURE TYPE + SCREEN PANEL - IMAGING: CT Lumbar Spine Wo Contrast (Results Pending) CT Thoracic Spine Wo Contrast (Results Pending) MRI Lumbar Spine Wwo Contrast (Results Pending) MRI Thoracic Spine Wwo Cont (Results Pending) No results found. - MEDS: Medications HYDROmorphone (Dilaudid) injection 0.5 mg (0.5 mg Intravenous $ Given 05/28/25 0129) Procedure done at this time No Ultrasound done at this time No Medications given in ED: Yes Medications prescribed: No Revised home medications: No ED COURSE ED Course as of 06/01/25 0846 [facility] May 28, 2025 0215 CMP and CBC unremarkable. Paged med admissions for admit [] 0241 Spoke with med admissions, to admit patient. [] 0255 After discussion with IM, the patient will be admitted to their service for further managementof back pain. Admitting provider is Dr. Berg. - I have reviewed the diagnostic findings with the patient and they have had an opportunity to ask me any questions they have about care, diagnosis, and reason for admission. The patient states understanding and agrees to admission. [AW] ED Course User Index [] Nakul Taveras [AW] Samantha Burroughs Clinical Impressions as of 06/01/25 0846 Multiple myeloma, remission status unspecified (HCC) Acute midline low back pain, unspecified whether sciatica present Acute midline thoracic back pain Type 2 diabetes mellitus without complication, unspecified whether oysterman insulin use (HCC) Primary hypertension IVDU (intravenous drug user) Cirrhosis of liver without ascites, unspecified hepatic cirrhosis type (HCC) Hepatitis C virus infection without hepatic coma, unspecified chronicity MRSA bacteremia History, exam and workup most consistent with 1. Multiple myeloma, remission status unspecified (HCC) 2. Acute midline low back pain, unspecified whether sciatica present 3. Acute midline thoracic back pain . Acute problems: Refer to HPI Exacerbations of chronic problems: Refer to HPI Systemic issues: Refer to HPI and/or SDOH Consultations in the ED: Refer to ED Course Medication changes: Refer to ED Course Follow up: Refer to ED Course CRITICAL CARE IN THE ED: Patient is critically ill due to: 1. Multiple myeloma, remission status unspecified (HCC) 2. Acute midline low back pain, unspecified whether sciatica present 3. Acute midline thoracic back pain - Patient is at high risk for complications and morbidity or mortality. YES - Patient is critically ill with vital organ impairment or failure. YES - There is high probability of imminent or life threatening deterioration in the patient's condition. YES - Patient is unable or incompetent to participate in giving a history and/or making decisions and discussion is necessary for determining treatment decisions. NO Time involved in the performance of separately billable procedures, teaching, reviewing education material was not counted towards critical care time. Time with bedside care: 15 minutes Time in discussion with family: 0 minutes Time reviewing old medical records: 5 minutes Time reviewing labs/radiographs/ECG (and other diagnostics): 5 minutes Time with Police Detention Attendant services: 5 minutes Time completing documentation: 5 minutes I was directly involved in the patient's care for a Total Critical Care Time of: 35 minutes Orders and Medicine administered during this encounter: Orders Placed This Encounter CT Lumbar Spine Wo Contrast CT Thoracic Spine Wo Contrast MRI Lumbar Spine Wwo Contrast MRI Thoracic Spine Wwo Cont CBC W AUTO DIFFERENTIAL COMPREHENSIVE METABOLIC PANEL URINALYSIS REFLEX MICROSCOPIC REFLEX CULTURE HYDROmorphone (Dilaudid) injection 0.5 mg Medications HYDROmorphone (Dilaudid) injection 0.5 mg (0.5 mg Intravenous $ Given 05/28/25 0129) Clinical Impression: 1. Multiple myeloma, remission status unspecified (HCC) 2. Acute midline low back pain, unspecified whether sciatica present 3. Acute midline thoracic back pain Disposition: Admit By signing my name below, ISamantha, attest that this documentation has been prepared under the direction and in the presence of Dr. Garcia. Signed: Fabio Deluna. Date: 05/28/2025. I, Dr. Garcia, personally performed the services described in this documentation. All medical record entries made by the scribe were at my direction and in my presence. I have reviewed the chart andagree that the record reflects my personal performance and is accurate and complete. Electronically signed: Dr. Garcia [1] Past Medical History: Diagnosis Date Acute osteomyelitis of lumbar spine (HCC) 11/20/2024 Acute septic pulmonary embolism without acute cor pulmonale (HCC) 10/14/2024 Agitated Elevated LFTs 11/20/2024 Hepatic cirrhosis due to chronic hepatitis C infection (HCC) 02/27/2025 History of illicit drug use 10/14/2024 Multiple myeloma (HCC) Orthopedic hardware present 12/18/2024 Type 2 diabetes mellitus without complications (HCC) Viral hepatitis C without hepatic coma [2] Past Surgical History: Procedure Laterality Date Appendectomy DEBRIDEMENT N/A 09/15/2024 N/A; IRRIGATION/DEBRIDEMENT XYPHOID ABSCESS WOUND EXCISION/DESTRUCTION TISSUE/LESION N/A 06/08/2024 N/A; Lumbar three bone biopsy Kyphoplasty N/A 07/22/2024 N/A; L3 radiofrequency ablation and kyphoplasty LIVER BIOPSY N/A 02/19/2025 N/A; BIOPSY LIVER (NEEDLE/PERCUTANEOUS)--plt 335, stat INR LUMBAR SPINE FUSION N/A 12/02/2024 N/A; lumbar one-five posterior instrumented fusion, lumbar two three laminectomy [3] Allergies Allergen Reactions Ms Contin [Morphine] Rash Vancomycin Rash Red man's syndrome * Nakul Taveras - 05/28/2025 1:19 AM CDT Joselito Nguyen [id number] [facility] EM[facility]ENCY [facility]PART[facility] History Chief Complaint Patient presents with Pain Back Pt BIBEMS tx from [facility] [place] for complications s/p back surgery. HX L3 multiple Myeloma. Ptreports walking around doing chores then sat down. After attempting to stand up, pt felt sudden sharp pain in his lumbar, pins and needles BLE, unable to stand. PMS intact, DP 2+. 44 yo with pmhx of plastocytoma with lumbar spine involvement and MRSA osteomyelitis with lumbar spine involvement presenting with acute onset back pain that started this afternoon. Patient came backfrom work and was sitting on the couch when started having lower back pain. Pain is shooting in nature and radiates down both legs, worse in left than right. Pain worsens with movement. Complains of lower extremity weakness and gait instability. Had some tingling in his toes but that has since resolved. Denies any perineal numbness, sensory deficits, or difficulty urinating. History provided by: Patient Past Medical History[1] Past Surgical History[2] Family History[3] Social History Socioeconomic History Marital status: Significant Other Spouse name: Not on file Number of children: Not on file Years of education: Not on file Highest education level: Not on file Occupational History Not on file Tobacco Use Smoking status: Former Current packs/day: 1.50 Average packs/day: 1.5 packs/day for 33.8 years (50.7 ttl pk-yrs) Types: Cigarettes Start date: 08/20/1991 Passive exposure: Past Smokeless tobacco: Never Vaping Use Vaping status: Never Used Substance and Sexual Activity Alcohol use: Not Currently Comment: rarely Drug use: Yes Types: Marijuana, Heroin, Cocaine Comment: Marijuana yesterday. [id number] and heroin 2010 Sexual activity: Not on file Other Topics Concern Not on file Social History Narrative Not on file Social Drivers of Health Financial Resource Strain: High Risk (11/23/2024) Overall Financial Resource Strain (CARDIA) Difficulty of Paying Living Expenses: Very hard Food Insecurity: Patient Declined (11/23/2024) Hunger Vital Sign Worried About Running Out of Food in the Last Year: Patient declined Ran Out of Food in the Last Year: Patient declined Transportation Needs: Unmet Transportation Needs (11/23/2024) PRAPARE - Transportation Lack of Transportation (Medical): Yes Lack of Transportation (Non-Medical): No Stress: Stress Concern Present (11/23/2024) [employer] [employer] - Occupational Stress Questionnaire Feeling of Stress : Very much Housing Stability: High Risk (11/23/2024) Housing Stability Vital Sign Unable to Pay for Housing in the Last Year: Yes Number of Times Moved in the Last Year: 0 Homeless in the Last Year: No Review of Systems Review of Systems Constitutional: Negative for chills, fever, malaise/fatigue and weight loss. HENT: Negative for hearing loss and tinnitus. Eyes: Negative for blurred vision and double vision. Respiratory: Negative for cough and shortness of breath. Cardiovascular: Negative for chest pain and palpitations. Gastrointestinal: Negative for abdominal pain and nausea. Genitourinary: Negative for dysuria, frequency and urgency. Musculoskeletal: Positive for back pain and myalgias. Neurological: Positive for tingling and weakness. Negative for dizziness, sensory change and headaches. Physical Exam BP 138/73 Pulse 59 Temp 98.1 ??F (36.7 ??C) (Oral) Resp 18 Ht 1.829 m (6') Wt 113.4 kg (250 lb) SpO2 95% BMI 33.91 kg/m?? Physical Exam Constitutional: General: He is in acute distress. Cardiovascular: Rate and Rhythm: Normal rate and regular rhythm. Pulses: Normal pulses. Pulmonary: Effort: Pulmonary effort is normal. No respiratory distress. Breath sounds: Normal breath sounds. Abdominal: General: Abdomen is flat. There is no distension. Palpations: Abdomen is soft. Skin: General: Skin is warm and dry. Neurological: Mental Status: He is alert and oriented to person, place, and time. Sensory: No sensory deficit. Motor: Weakness present. Comments: Lumbar spine TTP Pain elicited with leg flexion and extension, worse on left No sensory deficits in perineal region Medications Medications[4] Procedures Procedures Lab Interpretation Normal Labs:normal CBC Oxygen Saturation Interpretation No results found for this visit on 05/27/25. CT Lumbar Spine Wo Contrast (Results Pending) CT Thoracic Spine Wo Contrast (Results Pending) MRI Lumbar Spine Wo Contrast (Results Pending) MRI Thoracic Spine Wo Contrast (Results Pending) Progress Notes ED Course ED Course as of 05/28/25 0246 Faby May 28, 2025 0215 CMP and CBC unremarkable. Paged med admissions for admit [] 0241 Spoke with med admissions, to admit patient. [] ED Course User Index [] Nakul [facility] Clinical Impressions as of 05/28/25 0246 Acute midline low back pain, unspecified whether sciatica present Acute midline thoracic back pain Multiple myeloma, remission status unspecified ([facility]) Medical Decision Making 44 yo male with past medical history of plastocytoma and osteomyelitis with lumbar spine involvement, now s/p L1-L5 fusion and laminectomy (12/23) presenting with acute onset lumbar back pain. Ddx cauda equina vs spinal stenosis vs lumbosacral muscle strain. Amount and/or Complexity of Data Reviewed Labs: ordered. Decision-making details documented in ED Course. Radiology: ordered. Discussion of management or test interpretation with external provider(s): CT from OSH with severe canal stenosis at L3, multilevel degenerative disc disease at L5/S1 and foraminal narrowing at L3/4.Mixed lytic and sclerotic areas in the posterior superior iliac spine. Risk Prescription drug management. Decision regarding hospitalization. Orders Placed This Encounter CT Lumbar Spine Wo Contrast CT Thoracic Spine Wo Contrast MRI Lumbar Spine Wo Contrast MRI Thoracic Spine Wo Contrast CBC W AUTO DIFFERENTIAL COMPREHENSIVE METABOLIC PANEL URINALYSIS REFLEX MICROSCOPIC REFLEX CULTURE [1] Past Medical History: Diagnosis Date Acute osteomyelitis of lumbar spine (HCC) 11/20/2024 Acute septic pulmonary embolism without acute cor pulmonale (HCC) 10/14/2024 Agitated Elevated LFTs 11/20/2024 Hepatic cirrhosis due to chronic hepatitis C infection (HCC) 02/27/2025 History of illicit drug use 10/14/2024 Multiple myeloma (HCC) Orthopedic hardware present 12/18/2024 Type 2 diabetes mellitus without complications (HCC) Viral hepatitis C without hepatic coma [2] Past Surgical History: Procedure Laterality Date Appendectomy DEBRIDEMENT N/A 09/15/2024 N/A; IRRIGATION/DEBRIDEMENT XYPHOID ABSCESS WOUND EXCISION/DESTRUCTION TISSUE/LESION N/A 06/08/2024 N/A; Lumbar three bone biopsy Kyphoplasty N/A 07/22/2024 N/A; L3 radiofrequency ablation and kyphoplasty LIVER BIOPSY N/A 02/19/2025 N/A; BIOPSY LIVER (NEEDLE/PERCUTANEOUS)--plt 335, stat INR LUMBAR SPINE FUSION N/A 12/02/2024 N/A; lumbar one-five posterior instrumented fusion, lumbar two three laminectomy [3] Family History Problem Relation Name Age of Onset Cancer - Thyroid Sister Cancer - Colon Paternal Grandfather [4] Current Outpatient Medications Medication Sig Dispense Refill Acetaminophen Extra Strength 500 MG TABS TAKE 2 TABLETS (1,000 MG TOTAL) BY MOUTH EVERY 6 HOURS NEEDED FOR PAIN acyclovir (Zovirax) 400 MG tablet Take 1 (one) tablet by mouth 2 times daily 60 tablet 5 amLODIPine (Norvasc) 10 MG tablet Take 1 (one) tablet by mouth once daily Need to follow with primary care 30 tablet 3 amoxicillin (Amoxil) 875 MG tablet Take 1 tablet every 12 hours by oral route for 10 days. apixaban (Eliquis) 5 MG tablet Take 1 (one) tablet by mouth 2 times daily 60 tablet 3 Blood Glucose Monitoring Suppl (Blood Glucose Monitor System) w/Device KIT Use 1 Each as directed 1Each 0 Blood Glucose Monitoring Suppl (OneTouch Verio Flex System) w/Device KIT USE DIRECTED 1 kit 0 Blood Glucose Monitoring Suppl (OneTouch Verio) w/Device KIT Use 1 Box 3 times daily with meals 1 kit 0 blood glucose test strip Use 1 (one) strip 3 times daily before meals Use one strip to check blood sugar before each meal. One touch verio strips (Patient taking differently: Use 3 times daily beforemeals Use one strip to check blood sugar before each meal. One touch verio strips) 100 strip 12 camphor-menthol (Sarna) 0.5-0.5 % lotion Apply to affected area 3 times daily as needed for [id number] mL 1 carvedilol (Coreg) 12.5 MG tablet TAKE 1 TABLET TWICE A DAY BY ORAL ROUTE FOR 90 DAYS. Continuous Glucose Still Operator Whiskey (Dexcom G7 Still Operator Whiskey) NOREEN as directed Continuous Glucose Sensor (Dexcom G7 Sensor) MISC as directed cyclobenzaprine (Flexeril) 10 MG tablet Take 1 (one) tablet by mouth 3 times daily as needed for Muscle Spasms 90 tablet 1 docusate sodium (Colace) 100 MG capsule Take 1 (one) capsule by mouth 2 times daily 60 capsule 3 doxycycline hyclate (Vibramycin) 100 MG capsule Take 1 (one) capsule by mouth doxycycline hyclate 100 MG tablet Take 1 (one) tablet by mouth 2 times daily 56 tablet 5 famotidine (Pepcid) 40 MG tablet Take 1 (one) tablet by mouth once daily fexofenadine (Joceline) 180 MG tablet Take 1 (one) tablet by mouth once daily gabapentin (Neurontin) 300 MG capsule Take 1 (one) capsule by mouth 2 times daily for 60 days, THEN2 (two) capsules at bedtime for 60 days. 120 capsule 1 hydrOXYzine HCl (Atarax) 25 MG tablet TAKE 1 (ONE) TABLET BY MOUTH 4 TIMES DAILY NEEDED FOR ITCHING 360 tablet 1 insulin aspart (NovoLOG) pen Inject 5 (five) Units subcutaneously 3 times daily with meals 6 mL 2 insulin glargine (Lantus/Semglee) 100 units/mL pen Inject 10 (ten) Units subcutaneously every 24 hours for 30 days (Patient taking differently: Inject 20 (twenty) Units subcutaneously every 24 hours)3 mL 2 Jardiance 25 MG tablet Take 1 tablet every day by oral route for 90 days. Lancets (ONETOUCH DELICA PLUS 33G EXTRA FINE LANCET) USE ONE LANCET 3 TIMES A DAY 100 Each 11 lenalidomide (Revlimid) 10 MG capsule Take 1 (one) capsule by mouth once daily for 28 days 28 capsule 0 lidocaine (Lidoderm) 4 % patch Apply 1 (one) patch to skin once daily Apply patch to most painful area and remove after 12 hours. May reapply a new patch 12 hours later. 16 patch 0 losartan (Cozaar) 100 MG tablet Take 1 (one) tablet by mouth once daily Need to follow with primarycare 30 tablet 1 mirtazapine (Remeron) 15 MG tablet TAKE 1 TABLET BY MOUTH EVERYDAY AT BEDTIME 90 tablet 1 Nutritional Supplements (Ensure High Protein) LIQD Take 2 cans by mouth 2 times daily Reasons: Ensure High Protein twice a day ondansetron (Zofran) 8 MG tablet Take 1 (one) tablet by mouth every 8 hours as needed ondansetron, disintegrating, (Zofran ODT) 8 MG tablet Take 1 (one) tablet by mouth every 8 hours Allow tablet to dissolve on the tongue 90 tablet 1 oxyCODONE CR 12hr (OxyCONTIN) 20 MG tablet Take 1 (one) tablet by mouth every 12 hours 60 tablet 0 oxyCODONE, immediate release, (Roxicodone) 5 MG tablet Take 1 (one) tablet by mouth every 6 hours as needed for Pain 60 tablet 0 prochlorperazine (Compazine) 10 MG tablet Take 1 (one) tablet by mouth every 6 hours as needed for Nausea/Vomiting 30 tablet 6 sennosides (Senokot) 8.6 MG tablet TAKE ONE TABLET BY MOUTH 2 TIMES A DAY FOR 10 DAYS 20 tablet 0 sertraline (Zoloft) 50 MG tablet TAKE 1 TABLET BY MOUTH EVERY DAY 90 tablet 1 TRUEplus 5-Bevel Pen [place]ola 31G X 6 MM MIS USE TO INJECT INSULIN 3 TIMES DAILY Cosigned by Cristian Garcia MD at 06/01/2025 6:57 AM CDT * Alejandra Whitehead RN - 05/27/2025 11:33 PM CDT Bed: AC30 Expected date: Expected time: Means of arrival: Comments: [place] transfer documented in this encounter Miscellaneous Notes * Significant Event - Ирина Alamo MD - 05/28/2025 4:20 PM CDT Pt arrived in [facility] this afternoon. Notes, VS, labs were reviewed. 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 The rest of the plan is as per Dr Gill's note. documented in this encounter Plan of Treatment Upcoming Encounters Date Type Department Care Team (Late st Contact Info) Description 06/05/2025 8:30 AM CDT Office Visit [facility]itional [facility] at [facility] [address] [place] [address] 06/15/2025 2:30 PM CDT Appointment [facility] MRI [address] [place] [phone] Robb Wakefield MD [address] [place] [address] 06/15/2025 3:15 PM CDT Office Visit [facility] - Neurosurgery [address] [place] [address], [place] [phone] Arya Rm MD [address] [place] [address] [address] [place] [phone] Pending Results Name Type Priority Associated Diagnoses Date /Time HEPATITIS C RNA QUANTITATIVE Lab Routine 05/29/2025 7:04 AM CDT Scheduled Orders Name Type Priority Associated Diagnoses Orde r Schedule URINALYSIS REFLEX MICROSCOPIC REFLEX CULTURE Lab Routine ONCE for 1 Occur rences starting 05/28/2025 until 05/28/2025 MRI Lumbar Spine Wo Contrast Imaging STAT Multiple myeloma, remission status unspecified (HCC) 1 Occurrences starting 05/28/2025 until 05/28/2026 HEPATITIS C RNA QUANTITATIVE Lab Routine ONCE for 1 Occur rences starting 05/29/2025 until 05/29/2025 Scheduled Referrals Name Type Priority Associated Diagnoses Order Schedule REF TO [facility] Outpatient Referral Routine Multiple myeloma, remission status unspecified (HCC) 1 Occurrences starting 05/31/2025 until 05/31/2026 documented as of this encounter Procedures Procedure Name Priority Date/Time Associated Diagnosis Comments DIFFERENTIAL MANUAL AM Draw 05/31/2025 6 :56 AM CDT Multiple myeloma, remission status unspecified (HCC) CBC W AUTO DIFFERENTIAL AM Draw 05/31/2025 6:56 AM CDT Multiple myeloma, remission status unspecified (HCC) RENAL FUNCTION PANEL AM Draw 05/31/2025 6:56 AM CDT Multiple myeloma, remission status unspecified (HCC) MAGNESIUM BLOOD AM Draw 05/31/2025 6:56 AM CDT Multiple myeloma, remission status unspecified (HCC) GLUCOSE - POINT OF CARE Routine 05/31/2025 6:14 AM CDT GLUCOSE - POINT OF CARE Routine 05/31/2025 12:37 AM CDT GLUCOSE - POINT OF CARE Routine 05/30/2025 8:28 PM CDT DIFFERENTIAL MANUAL AM Draw 05/30/2025 7 :29 AM CDT Multiple myeloma, remission status unspecified (HCC) CBC W AUTO DIFFERENTIAL AM Draw 05/30/2025 7:29 AM CDT Multiple myeloma, remission status unspecified (HCC) RENAL FUNCTION PANEL AM Draw 05/30/2025 7:29 AM CDT Multiple myeloma, remission status unspecified (HCC) MAGNESIUM BLOOD AM Draw 05/30/2025 7:29 AM CDT Multiple myeloma, remission status unspecified (HCC) GLUCOSE - POINT OF CARE Routine 05/30/2025 6:39 AM CDT GLUCOSE - POINT OF CARE Routine 05/30/2025 2:01 AM CDT GLUCOSE - POINT OF CARE Routine 05/29/2025 4:24 PM CDT OT EVAL AND TREAT Routine 05/29/2025 3:4 3 PM CDT GLUCOSE - POINT OF CARE Routine 05/29/2025 11:42 AM CDT HEMOGLOBIN A1C Routine 05/29/2025 7:04 AM CDT Multiple myeloma, remission status unspecified (HCC) CBC W AUTO DIFFERENTIAL AM Draw 05/29/2025 7:04 AM CDT Multiple myeloma, remission status unspecified (HCC) RENAL FUNCTION PANEL AM Draw 05/29/2025 7:04 AM CDT Multiple myeloma, remission status unspecified (HCC) MAGNESIUM BLOOD AM Draw 05/29/2025 7:04 AM CDT Multiple myeloma, remission status unspecified (HCC) GLUCOSE - POINT OF CARE Routine 05/29/2025 6:09 AM CDT GLUCOSE - POINT OF CARE Routine 05/29/2025 12:10 AM CDT GLUCOSE - POINT OF CARE Routine 05/28/2025 4:46 PM CDT C-REACTIVE PROTEIN ABDULKADIR 05/28/2025 1: 59 PM CDT ERYTHROCYTE SEDIMENTATION RATE STAT 05/28/2025 1:[address] LUMBAR SPINE WO CONTRAST STAT 05/28/2025 3:39 AM CDT Acute midline low back pain, unspecified whether sciatica present CT THORACIC SPINE WO CONTRAST STAT 05/28/2025 3:39 AM CDT Acute midline thoracic back pain TYPE + SCREEN PANEL STAT 05/28/2025 1 :26 AM CDT CBC W AUTO DIFFERENTIAL STAT 05/28/2025 1:26 AM CDT COMPREHENSIVE METABOLIC PANEL STAT 05/28/2025 1:26 AM CDT documented in this encounter Results * (ABNORMAL) DIFFERENTIAL MANUAL (05/31/2025 6:56 AM CDT) Neutrophil % 43 41 - 74 % 05/31/2025 8:08 AM [facility] Lymphocyte % 48(H) 17 - 47 % 05/31/2025 8:08 AM [facility] Monocyte % 7 3 - 11 % 05/31/2025 8:08 AM [facility] Basophil % 2 0 - 2 % 05/31/2025 8:08 AM [facility] Neutrophil Absolute 5.38 1.60 - 7.50 x10E9/L 05/31/2025 8:08 AM [facility] Lymphocyte Absolute 6.00(H) 1.00 - 4.40 x10E9/L 05/31/2025 8:08 AM [facility] Monocyte Absolute 0.88 0.15 - 1.00 x10E9/L 05/31/2025 8:08 AM [facility] Basophil Absolute 0.25(H) 0.00 - 0.13 x10E9/L 05/31/2025 8:08 AM [facility] RBC Morphology REVIEWED 05/31/2025 8:08 AM [facility] Large Platelets PRESENT(A) (none) 05/31/2025 8:08 AM [facility] Blood BLOOD SPECIMEN / Unknown Lab Venipuncture / Unknown 05/31/2025 6:56 AM CDT 05/31/2025 7:31 AM CDT us Cristian Garcia MD LAB - HEMATOLOGY ORDERABLES F inal Result [facility] [address] [place] [phone], [facility] [phone] * MAGNESIUM BLOOD (05/31/2025 6:56 AM CDT) Magnesium 1.9 1.6 - 2.6 mg/dL 05/31/2025 8:02 AM [facility] Blood BLOOD SPECIMEN / Unknown Lab Venipuncture / Unknown 05/31/2025 6:56 AM CDT 05/31/2025 7:31 AM CDT us Cristian Garcia MD LAB - CHEMISTRY ORDERABLES Fi nal Result [facility] [address] [place] [address], [facility] [phone] * (ABNORMAL) RENAL FUNCTION PANEL (05/31/2025 6:56 AM CDT) BUN 14 7 - 26 mg/dL 05/31/2025 8:02 AM [facility] Creatinine 0.74 0.71 - 1.16 mg/dL 05/31/2025 8:02 AM [facility] Sodium 138 136 - 145 mmol/L 05/31/2025 8:02 AM [facility] Potassium 3.8 3.5 - 4.5 mmol/L 05/31/2025 8:02 AM [facility] Chloride 108(H) 98 - 107 mmol/L 05/31/2025 8:02 AM [facility] CO2 26 22 - 29 mmol/L 05/31/2025 8:02 AM [facility] Glucose 120(H) 70 - 99 mg/dL 05/31/2025 8:02 AM [facility] Albumin 4.0 3.4 - 5.0 g/dL 05/31/2025 8:02 AM [facility] Calcium 8.7 8.4 - 10.2 mg/dL 05/31/2025 8:02 AM [facility] Phosphorus 3.5 2.8 - 5.1 mg/dL 05/31/2025 8:02 AM [facility] Anion Gap 4(L) 6 - 16 05/31/2025 8:02 AM [facility] BUN/Creatinine Ratio 19 7 - 23 05/31/2025 8:02 AM [facility] Osmolality Calculated 288 275 - 295 mOsm/kg 05/31/2025 8:02 AM [facility] eGFR by CKD-EPI >90 >=90 mL/min/1.7 3 m2 05/31/2025 8:02 AM [facility] Comment:Estimated Glomerular Filtration Rate (eGFR) calculated using the CKD-EPI Creatinine Equation (2020), per the National Kidney Foundation and [place] [employer]ph[employer] recommendations. Blood BLOOD SPECIMEN / Unknown Lab Venipuncture / Unknown 05/31/2025 6:56 AM CDT 05/31/2025 7:31 AM CDT us Cristian Garcia MD LAB - CHEMISTRY ORDERABLES Fi nal Result [facility] [address] [place] [phone], [facility] [phone] * (ABNORMAL) CBC W AUTO DIFFERENTIAL (05/31/2025 6:56 AM CDT) WBC 12.5(H) 4.0 - 10.7 x10E9/L 05/31/2025 8:08 AM [facility] RBC Count 5.46 4.30 - 5.80 x10E12/L 05/31/2025 8:08 AM [facility] Hemoglobin 15.5 13.3 - 17.5 g/dL 05/31/2025 8:08 AM [facility] Hematocrit 46.6 38.7 - 51.1 % 05/31/2025 8:08 AM [facility] MCV 85.3 80.0 - 98.0 fL 05/31/2025 8:08 AM [facility] MCH 28.4 26.7 - 33.6 pg 05/31/2025 8:08 AM [facility] MCHC 33.3 31.7 - 36.3 g/dL 05/31/2025 8:08 AM [facility] RDW-CV 15.1(H) 11.3 - 14.8 % 05/31/2025 8:08 AM CDT [facility] Platelet Count 216 150 - 420 x10E9/L 05/31/2025 8:08 AM CDT [facility] MPV 11.0 7.8 - 11.4 fL 05/31/2025 8:08 AM CDT [facility] Blood BLOOD SPECIMEN / Unknown Lab Venipuncture / Unknown 05/31/2025 6:56 AM CDT 05/31/2025 7:31 AM CDT us Cristian Garcia MD LAB - HEMATOLOGY ORDERABLES F inal Result [address] [address], [place] [phone] * GLUCOSE - POINT OF CARE (05/31/2025 6:14 AM CDT) Glucose WB/POC 98 70 - 99 mg/dL 05/31/2025 6:18 AM CDT [facility] Specimen Type Arterial/C apillary 05/31/2025 6:18 AM CDT [facility] Blood BLOOD SPECIMEN / Unknown 05/31/2025 6:14 AM CDT 05/31/2025 6:18 AM CDT us Robb Wakefield MD LAB - POINT OF CARE ORDERA BLES Final Result [address] [address], [place] [phone] * (ABNORMAL) GLUCOSE - POINT OF CARE (05/31/2025 12:37 AM CDT) Glucose WB/POC 157(H) 70 - 99 mg/dL 05/31/2025 12:44 AM CDT [facility] Specimen Type Arterial/C apillary 05/31/2025 12:44 AM CDT [facility] Blood BLOOD SPECIMEN / Unknown 05/31/2025 12:37 AM CDT 05/31/2025 12:44 AM CDT us Robb Wakefield MD LAB - POINT OF CARE ORDERA BLES Final Result Performing Organization Address [facility]/ZIP Co de Phone Number [address] [address], [facility] [phone] * (ABNORMAL) GLUCOSE - POINT OF CARE (05/30/2025 8:28 PM CDT) [facility] Glucose WB/POC 218(H) 70 - 99 mg/dL 05/30/2025 8:36 PM CDT [facility] Specimen Type Arterial/C apillary 05/30/2025 8:36 PM [facility] Blood BLOOD SPECIMEN / Unknown 05/30/2025 8:28 PM CDT 05/30/2025 8:36 PM CDT Robb Wakefield MD LAB - POINT OF CARE ORDERA BLES Final Result Performing Organization Address [facility] Co de Phone Number [address] [address], [facility] [phone] * (ABNORMAL) DIFFERENTIAL MANUAL (05/30/2025 7:29 AM CDT) [facility] Neutrophil % 46 41 - 74 % 05/30/2025 8:57 AM [facility] Lymphocyte % 39 17 - 47 % 05/30/2025 8:57 AM [facility] Monocyte % 12(H) 3 - 11 % 05/30/2025 8:57 AM [facility] Eosinophil % 2 0 - 7 % 05/30/2025 8:57 AM [facility] Basophil % 1 0 - 2 % 05/30/2025 8:57 AM [facility] Neutrophil Absolute 5.93 1.60 - 7.50 x10E9/L 05/30/2025 8:57 AM [facility] Lymphocyte Absolute 5.03(H) 1.00 - 4.40 x10E9/L 05/30/2025 8:57 AM [facility] Monocyte Absolute 1.55(H) 0.15 - 1.00 x10E9/L 05/30/2025 8:57 AM CDT [facility] Eosinophil Absolute 0.26 0.00 - 0.60 x10E9/L 05/30/2025 8:57 AM CDT [facility] Basophil Absolute 0.13 0.00 - 0.13 x10E9/L 05/30/2025 8:57 AM CDT [facility] RBC Morphology NORMAL 05/30/2025 8:57 AM CDT [facility] Blood BLOOD SPECIMEN / Unknown Lab Venipuncture / Unknown 05/30/2025 7:29 AM CDT 05/30/2025 8:21 AM CDT Cristian Garcia MD LAB - HEMATOLOGY ORDERABLES F inal Result Performing Organization Address [facility]/ZIP Co de Phone Number [address] [address], [place] [phone] * MAGNESIUM BLOOD (05/30/2025 7:29 AM CDT) Magnesium 1.9 1.6 - 2.6 mg/dL 05/30/2025 8:57 AM CDT [facility] Blood BLOOD SPECIMEN / Unknown Lab Venipuncture / Unknown 05/30/2025 7:29 AM CDT 05/30/2025 8:23 AM CDT Cristian Garcia MD LAB - CHEMISTRY ORDERABLES Fi nal Result [address] [address], [place] [phone] * (ABNORMAL) RENAL FUNCTION PANEL (05/30/2025 7:29 AM CDT) BUN 14 7 - 26 mg/dL 05/30/2025 9:03 AM CDT [facility] Creatinine 0.76 0.71 - 1.16 mg/dL 05/30/2025 9:03 AM CDT [facility] Sodium 141 136 - 145 mmol/L 05/30/2025 9:03 AM [facility] Potassium 3.6 3.5 - 4.5 mmol/L 05/30/2025 9:03 AM [facility] Chloride 113(H) 98 - 107 mmol/L 05/30/2025 9:03 AM [facility] CO2 24 22 - 29 mmol/L 05/30/2025 9:03 AM [facility] Glucose 117(H) 70 - 99 mg/dL 05/30/2025 9:03 AM [facility] Albumin 4.1 3.4 - 5.0 g/dL 05/30/2025 9:03 AM [facility] Calcium 8.6 8.4 - 10.2 mg/dL 05/30/2025 9:03 AM [facility] Phosphorus 3.3 2.8 - 5.1 mg/dL 05/30/2025 9:03 AM [facility] Anion Gap 4(L) 6 - 16 05/30/2025 9:03 AM [facility] BUN/Creatinine Ratio 18 7 - 23 05/30/2025 9:03 AM [facility] Osmolality Calculated 294 275 - 295 mOsm/kg 05/30/2025 9:03 AM [facility] eGFR by CKD-EPI >90 >=90 mL/min/1.7 3 m2 05/30/2025 9:03 AM [facility] Comment:Estimated Glomerular Filtration Rate (eGFR) calculated using the CKD-EPI Creatinine Equation (2020), per the National Kidney Foundation and [place] [employer]ph[employer] recommendations. Blood BLOOD SPECIMEN / Unknown Lab Venipuncture / Unknown 05/30/2025 7:29 AM CDT 05/30/2025 8:23 AM CDT us Cristian Garcia MD LAB - CHEMISTRY ORDERABLES Fi nal Result [facility] [address] [place] [address], [facility] [phone] * (ABNORMAL) CBC W AUTO DIFFERENTIAL (05/30/2025 7:29 AM CDT) WBC 12.9(H) 4.0 - 10.7 x10E9/L 05/30/2025 8:57 AM [facility] RBC Count 5.54 4.30 - 5.80 x10E12/L 05/30/2025 8:57 AM [facility] Hemoglobin 15.7 13.3 - 17.5 g/dL 05/30/2025 8:57 AM [facility] Hematocrit 47.6 38.7 - 51.1 % 05/30/2025 8:57 AM [facility] MCV 85.9 80.0 - 98.0 fL 05/30/2025 8:57 AM [facility] MCH 28.3 26.7 - 33.6 pg 05/30/2025 8:57 AM [facility] MCHC 33.0 31.7 - 36.3 g/dL 05/30/2025 8:57 AM [facility] RDW-CV 15.2(H) 11.3 - 14.8 % 05/30/2025 8:57 AM [facility] Platelet Count 175 150 - 420 x10E9/L 05/30/2025 8:57 AM [facility] MPV 11.9(H) 7.8 - 11.4 fL 05/30/2025 8:57 AM [facility] Blood BLOOD SPECIMEN / Unknown Lab Venipuncture / Unknown 05/30/2025 7:29 AM CDT 05/30/2025 8:21 AM T us Cristian Garcia MD LAB - HEMATOLOGY ORDERABLES F inal Result [facility] [address] [place] [address], [facility] [phone] * (ABNORMAL) GLUCOSE - POINT OF CARE (05/30/2025 6:39 AM CDT) Pathologist [facility] Glucose WB/POC 126(H) 70 - 99 mg/dL 05/30/2025 6:44 AM [facility] Specimen Type Arterial/C apillary 05/30/2025 6:44 AM [facility] Blood BLOOD SPECIMEN / Unknown 05/30/2025 6:39 AM CDT 05/30/2025 6:44 AM CDT us Robb Wakefield MD LAB - POINT OF CARE ORDERA BLES Final Result [address] [address], [place] [phone] * (ABNORMAL) GLUCOSE - POINT OF CARE (05/30/2025 2:01 AM CDT) Glucose WB/POC 175(H) 70 - 99 mg/dL 05/30/2025 2:06 AM CDT [facility] Specimen Type Arterial/C apillary 05/30/2025 2:06 AM CDT [facility] Blood BLOOD SPECIMEN / Unknown 05/30/2025 2:01 AM CDT 05/30/2025 2:06 AM CDT us Robb Wakefield MD LAB - POINT OF CARE ORDERA BLES Final Result [address] [address], [place] [phone] * (ABNORMAL) GLUCOSE - POINT OF CARE (05/29/2025 4:24 PM CDT) Glucose WB/POC 179(H) 70 - 99 mg/dL 05/29/2025 4:32 PM CDT [facility] Specimen Type Arterial/C apillary 05/29/2025 4:32 PM CDT [facility] Blood BLOOD SPECIMEN / Unknown 05/29/2025 4:24 PM CDT 05/29/2025 4:32 PM CDT us Robb Wakefield MD LAB - POINT OF CARE ORDERA BLES Final Result [address] [address], [facility] [phone] * (ABNORMAL) GLUCOSE - POINT OF CARE (05/29/2025 11:42 AM CDT) [facility] Glucose WB/POC 148(H) 70 - 99 mg/dL 05/29/2025 11:47 AM CDT [facility] Specimen Type Arterial/C apillary 05/29/2025 11:47 AM CDT [facility] Blood BLOOD SPECIMEN / Unknown 05/29/2025 11:42 AM CDT 05/29/2025 11:47 AM CDT us Robb Wakefield MD LAB - POINT OF CARE ORDERA BLES Final Result Performing Organization Address City/[facility]/ZIP Co de Phone Number [address] [address], [facility] [phone] * MAGNESIUM BLOOD (05/29/2025 7:04 AM CDT) [facility] Magnesium 1.9 1.6 - 2.6 mg/dL 05/29/2025 8:29 AM CDT [facility] Blood BLOOD SPECIMEN / Unknown Lab Venipuncture / Unknown 05/29/2025 7:04 AM CDT 05/29/2025 8:00 AM CDT us Cristian Garcia MD LAB - CHEMISTRY ORDERABLES Fi nal Result [address] [address], [facility] [phone] * (ABNORMAL) RENAL FUNCTION PANEL (05/29/2025 7:04 AM CDT) [facility] BUN 13 7 - 26 mg/dL 05/29/2025 8:29 AM CDT [facility] Creatinine 0.75 0.71 - 1.16 mg/dL 05/29/2025 8:29 AM CDT [facility] Sodium 136 136 - 145 mmol/L 05/29/2025 8:29 AM CDT [facility] Potassium 4.4 3.5 - 4.5 mmol/L 05/29/2025 8:29 AM [facility] Chloride 108(H) 98 - 107 mmol/L 05/29/2025 8:29 AM [facility] CO2 22 22 - 29 mmol/L 05/29/2025 8:29 AM [facility] Glucose 154(H) 70 - 99 mg/dL 05/29/2025 8:29 AM [facility] Albumin 4.4 3.4 - 5.0 g/dL 05/29/2025 8:29 AM [facility] Calcium 9.1 8.4 - 10.2 mg/dL 05/29/2025 8:29 AM [facility] Phosphorus 2.2(L) 2.8 - 5.1 mg/dL 05/29/2025 8:29 AM [facility] Anion Gap 6 6 - 16 05/29/2025 8:29 AM [facility] BUN/Creatinine Ratio 17 7 - 23 05/29/2025 8:29 AM [facility] Osmolality Calculated 285 275 - 295 mOsm/kg 05/29/2025 8:29 AM [facility] eGFR by CKD-EPI >90 >=90 mL/min/1.7 3 m2 05/29/2025 8:29 AM [facility] Comment:Estimated Glomerular Filtration Rate (eGFR) calculated using the CKD-EPI Creatinine Equation (2020), per the National Kidney Foundation and [place] [employer]ph[employer] recommendations. Blood BLOOD SPECIMEN / Unknown Lab Venipuncture / Unknown 05/29/2025 7:04 AM CDT 05/29/2025 8:00 AM T us Cristian Garcia MD LAB - CHEMISTRY ORDERABLES Fi nal Result [facility] [address] [place] [address], [facility] [phone] * (ABNORMAL) CBC W AUTO DIFFERENTIAL (05/29/2025 7:04 AM CDT) WBC 6.9 4.0 - 10.7 x10E9/L 05/29/2025 8:08 AM [facility] RBC Count 5.80 4.30 - 5.80 x10E12/L 05/29/2025 8:08 AM [facility] Hemoglobin 16.6 13.3 - 17.5 g/dL 05/29/2025 8:08 AM [facility] Hematocrit 50.5 38.7 - 51.1 % 05/29/2025 8:08 AM [facility] MCV 87.1 80.0 - 98.0 fL 05/29/2025 8:08 AM [facility] MCH 28.6 26.7 - 33.6 pg 05/29/2025 8:08 AM [facility] MCHC 32.9 31.7 - 36.3 g/dL 05/29/2025 8:08 AM [facility] RDW-CV 14.8 11.3 - 14.8 % 05/29/2025 8:08 AM [facility] Platelet Count 210 150 - 420 x10E9/L 05/29/2025 8:08 AM [facility] MPV 11.6(H) 7.8 - 11.4 fL 05/29/2025 8:08 AM [facility] Neutrophil % 73.5 41.0 - 74.0 % 05/29/2025 8:08 AM [facility] Lymphocyte % 22.4 17.0 - 47.0 % 05/29/2025 8:08 AM [facility] Monocyte % 3.3 3.0 - 11.0 % 05/29/2025 8:08 AM [facility] Eosinophil % 0.1 0.0 - 7.0 % 05/29/2025 8:08 AM [facility] Basophil % 0.4 0.0 - 1.6 % 05/29/2025 8:08 AM [facility] Immature Granulocytes % 0.3 0.0 - 1.0 % 05/29/2025 8:08 AM [facility] Neutrophil Absolute 5.09 1.60 - 7.50 x10E9/L 05/29/2025 8:08 AM [facility] Lymphocyte Absolute 1.55 1.00 - 4.40 x10E9/L 05/29/2025 8:08 AM CDT [facility] Monocyte Absolute 0.23 0.15 - 1.00 x10E9/L 05/29/2025 8:08 AM CDT [facility] Eosinophil Absolute 0.01 0.00 - 0.60 x10E9/L 05/29/2025 8:08 AM [facility] Basophil Absolute 0.03 0.00 - 0.13 x10E9/L 05/29/2025 8:08 AM [facility] Blood BLOOD SPECIMEN / Unknown Lab Venipuncture / Unknown 05/29/2025 7:04 AM CDT 05/29/2025 8:00 AM CDT us Cristian Garcia MD LAB - HEMATOLOGY ORDERABLES F inal Result [address] [address] [phone] * (ABNORMAL) HEMOGLOBIN A1C (05/29/2025 7:04 AM CDT) Hemoglobin A1c 6.1(H) <=5.6 % 05/29/2025 11:58 AM [facility] Estimated Average Glucose 128 mg/dL 05/29/2025 11:58 AM [facility] Comment: HbA1c Interpretation: Normal : < 5.7% Pre-diabetes: 5.7-6.4% Diabetes: Equal to or greater than 6.5% Test results diagnostic of diabetes should be repeated for confirmation. Treatment target values recommended by ADA and other clinical organizations should be used to evaluate metabolic control in patients. Reference: [place] [employer], Standards of Care in Diabetes -2020 In patients 70 years and older consider HbA1c target range of 7.0-7.5% (Reference: Jona Epstein et al. JAMDA. 2012) The Sebia assay for the measurement of HbA1c is a National Glycohemoglobin Standardization Program (NGSP) certified method. Blood BLOOD SPECIMEN / Unknown Lab Venipuncture / Unknown 05/29/2025 7:04 AM CDT 05/29/2025 8:00 AM CDT us Cristian Garcia MD LAB - CHEMISTRY ORDERABLES Fi nal Result Performing Organization Address City/[facility]/ZIP Co de Phone Number [address] [address], [place] [phone] * (ABNORMAL) GLUCOSE - POINT OF CARE (05/29/2025 6:09 AM CDT) Glucose WB/POC 162(H) 70 - 99 mg/dL 05/29/2025 6:14 AM CDT [facility] Specimen Type Arterial/C apillary 05/29/2025 6:14 AM CDT [facility] Blood BLOOD SPECIMEN / Unknown 05/29/2025 6:09 AM CDT 05/29/2025 6:14 AM CDT us Robb Wakefield MD LAB - POINT OF CARE ORDERA BLES Final Result Performing Organization Address City/[facility]/ZIP Co de Phone Number [address] [address], [place] [phone] * (ABNORMAL) GLUCOSE - POINT OF CARE (05/29/2025 12:10 AM CDT) Glucose WB/POC 127(H) 70 - 99 mg/dL 05/29/2025 12:15 AM CDT [facility] Specimen Type Arterial/C apillary 05/29/2025 12:15 AM CDT [facility] Blood BLOOD SPECIMEN / Unknown 05/29/2025 12:10 AM CDT 05/29/2025 12:15 AM CDT us Robb Wakefield MD LAB - POINT OF CARE ORDERA BLES Final Result [address] [address], [place] [phone] * (ABNORMAL) GLUCOSE - POINT OF CARE (05/28/2025 4:46 PM CDT) Glucose WB/POC 165(H) 70 - 99 mg/dL 05/28/2025 4:52 PM CDT [facility] Specimen Type Arterial/C apillary 05/28/2025 4:52 PM CDT [facility] Blood BLOOD SPECIMEN / Unknown 05/28/2025 4:46 PM CDT 05/28/2025 4:52 PM CDT us Robb Wakefield MD LAB - POINT OF CARE ORDERA BLES Final Result [address] [address], [place] [phone] * (ABNORMAL) C-REACTIVE PROTEIN (05/28/2025 1:59 PM CDT) Pathologist [facility] C-Reactive Protein 0.6(H) <=0.5 mg/dL 05/28/2025 2:38 PM CDT [facility] Blood BLOOD SPECIMEN / Unknown Venipuncture / Unknown 05/28/2025 1:59 PM CDT 05/28/2025 2:10 PM CDT us Robb Wakefield MD LAB - CHEMISTRY ORDERABLES Final Result Performing Organization Address City/[facility]/ZIP Co de Phone Number [address] [address], [place] [phone] * ERYTHROCYTE SEDIMENTATION RATE (05/28/2025 1:59 PM CDT) [facility] Erythrocyte Sedimentation Rate Westergren 8 0 - 15 MM/HR 05/28/2025 2:32 PM CDT [facility] Blood BLOOD SPECIMEN / Unknown Venipuncture / Unknown 05/28/2025 1:59 PM CDT 05/28/2025 2:10 PM CDT Robb Wakefield MD LAB - HEMATOLOGY ORDERABLE S Final Result [address] [place] [address], [facility] [phone] * CT Thoracic Spine Wo Contrast (05/28/2025 3:39 AM CDT) Anatomical Region Laterality Modality Spine Computed Tomogra phy 05/28/2025 5:14 AM CDT Impressions 05/28/2025 10:09 AM CDT IMPRESSION: 1.No evidence of acute fracture in the thoracic or lumbar spine. 2.Mild to moderate central canal stenosis in the thoracic spine, most pronounced at T10-T11 due to the given of trauma thickening/calcification. 3.Redemonstration of a chronic L3 vertebral body fracture status post kyphoplasty. An irregular lytic lesion and the sclerotic changes with cortical enlargement are noted in the L3 vertebral body. However, the lytic lesion is not well evaluated due to the technique. 4.Redemonstration of posterior spinal fusion at L1 and L5 with laminectomy at L2-L3. 5.Severe central canal stenosis at L3-L4 due to retropulsion and enlargement of the bones, likely severe compression of the nerve roots in the cauda equina at that level. 6.Within the posterior soft tissue at the level of L3 there is an ill-defined 2.7 x 4.9 cm fluid collection extending to the skin surface. This may be postsurgical changes, however recommend correlation for possible infection. > Dictated by Railway Switch Operator I, Natan Modi MD have personally reviewed and interpreted this examination/study. > Interpreting Provider: Natan Modi MD on 05/28/2025 10:09 AM Narrative 05/28/2025 10:09 AM CDT PROCEDURE: CT THORACIC SPINE WO CONTRAST, CT LUMBAR SPINE WO CONTRAST, DATE/TIME OF EXAM: 05/28/2025 3:39 AM, LOCATION [facility] INDICATION: M54.6: Acute midline thoracic back pain EXAMINATION: 1.CT of the thoracic spine without contrast 2.CT of the lumbar spine without contrast ADDITIONAL CLINICAL INFORMATION: Ordering Provider Reason For Exam: b/l LE weakness, h/o spinal surgery Technologist Note: Additional: TECHNIQUE: CT of the thoracic and lumbar spine were obtained according to standard protocol. Reformatted sagittal and coronal images were obtained by the technologist and sent to the workstation for review. CT dose reduction technique was used, including Automated Exposure Control. COMPARISON: CT lumbar spine dated 12/05/2024. FINDINGS: Thoracic spine: The alignment is normal. Vertebral bodies are normal in height without evidence of acute fracture. There is mild degenerative disc disease. Mild to moderate multilevel central canal stenosis secondary to ligamentum flavum hypertrophy, most pronounced at T10-T11. There is mild facet osteoarthritis at multiple levels. No neural foraminal stenosis is seen. There is subsegmental atelectasis in the dependent portions of the lung bases. Lumbar spine: Posterior spinal fusion hardware at L1-L5. Hardware appears intact without evidence of lucencies to suggest loosening. Laminectomy at L2-L3. 5 mm retrolisthesis of L3 on L4. Redemonstration of a chronic L3 vertebral body fracture status post kyphoplasty. An irregular lytic lesion and the sclerotic changes with cortical enlargement are noted in the L3 vertebral body. No acute fracture identified. Mild to moderate multilevel degenerative disc disease. Severe central canal stenosis at L3-L4 due to retropulsion and enlargement of the bones. There is advanced facet osteoarthritis at multiple levels. Moderate to severe multilevel neural foraminal stenosis. Status post cholecystectomy. Redemonstration of a mixed lytic and sclerotic lesion at the posterior aspect of the left ilium which may represent sequelae of Paget's. Within the posterior soft tissue at the level of L3 there is an ill-defined 2.7 x 4.9 cm fluid collection extending to the skin surface. This is not well evaluated due to the lack of intravenous contrast. This may be postsurgical changes, however recommend correlation for possible infection. Procedure Note Natan Modi MD - 05/28/2025 PROCEDURE: CT THORACIC SPINE WO CONTRAST, CT LUMBAR SPINE WO CONTRAST, DATE/TIME OF EXAM: 05/28/2025 3:39 AM, LOCATION [facility] INDICATION: M54.6: Acute midline thoracic back pain EXAMINATION: 1.CT of the thoracic spine without contrast 2.CT of the lumbar spine without contrast ADDITIONAL CLINICAL INFORMATION: Ordering Provider Reason For Exam: b/l LE weakness, h/o spinal surgery Technologist Note: Additional: TECHNIQUE: CT of the thoracic and lumbar spine were obtained accordingto standard protocol. Reformatted sagittal and coronal images were obtainedby the technologist and sent to the workstation for review. CT dosereduction technique was used, including Automated Exposure Control. COMPARISON: CT lumbar spine dated 12/05/2024. FINDINGS: Thoracic spine: The alignment is normal. Vertebral bodies are normal in height without evidence of acute fracture. There is mild degenerative disc disease.Mild to moderate multilevel central canal stenosis secondary to ligamentum flavum hypertrophy, most pronounced at T10-T11. There is mild facet osteoarthritis at multiple levels. No neural foraminal stenosis is seen. There is subsegmental atelectasis in the dependent portions of the lung bases. Lumbar spine: Posterior spinal fusion hardware at L1-L5. Hardware appears intactwithout evidence of lucencies to suggest loosening. Laminectomy at L2-L3. 5 mm retrolisthesis of L3 on L4. Redemonstration of a chronic W3ruofowzki body fracture status post kyphoplasty. An irregular lytic lesion and the sclerotic changes with cortical enlargement are noted in the C1lfcsdsmhh body. No acute fracture identified. Mild to moderate multilevel degenerative disc disease. Severe central canal stenosis at L3-L4 due to retropulsion and enlargement of the bones. There is advanced facet osteoarthritis at multiple levels. Moderate to severe multilevel neural foraminal stenosis. Status post cholecystectomy. Redemonstration of a mixed lytic andsclerotic lesion at the posterior aspect of the left ilium which may represent sequelae of Paget's. Within the posterior soft tissue at the level of L3 there is anill-defined 2.7 x 4.9 cm fluid collection extending to the skin surface. This is not well evaluated due to the lack of intravenous contrast. This may be postsurgical changes, however recommend correlation for possibleinfection. IMPRESSION: 1.No evidence of acute fracture in the thoracic or lumbar spine. 2.Mild to moderate central canal stenosis in the thoracic spine, most pronounced at T10-T11 due to the given of traumathickening/calcification. 3.Redemonstration of a chronic L3 vertebral body fracture status post kyphoplasty. An irregular lytic lesion and the sclerotic changes with cortical enlargement are noted in the L3 vertebral body. However, thelytic lesion is not well evaluated due to the technique. 4.Redemonstration of posterior spinal fusion at L1 and L5 withlaminectomy at L2-L3. 5.Severe central canal stenosis at L3-L4 due to retropulsion and enlargement of the bones, likely severe compression of the nerve rootsin the cauda equina at that level. 6.Within the posterior soft tissue at the level of L3 there is an ill-defined 2.7 x 4.9 cm fluid collection extending to the skin surface. This may be postsurgical changes, however recommend correlation for possible infection. > Dictated by Railway Switch Operator INatan MD have personally reviewed and interpreted this examination/study. > Interpreting Provider: Natan Modi MD on 05/28/2025 10:09 AM Cristian Garcia MD CT ORDERABLES Final Result * CT Lumbar Spine Wo Contrast (05/28/2025 3:39 AM CDT) Anatomical Region Laterality Modality Spine Computed Tomogra phy 05/28/2025 5:14 AM CDT Impressions 05/28/2025 10:09 AM CDT IMPRESSION: 1.No evidence of acute fracture in the thoracic or lumbar spine. 2.Mild to moderate central canal stenosis in the thoracic spine, most pronounced at T10-T11 due to the given of trauma thickening/calcification. 3.Redemonstration of a chronic L3 vertebral body fracture status post kyphoplasty. An irregular lytic lesion and the sclerotic changes with cortical enlargement are noted in the L3 vertebral body. However, the lytic lesion is not well evaluated due to the technique. 4.Redemonstration of posterior spinal fusion at L1 and L5 with laminectomy at L2-L3. 5.Severe central canal stenosis at L3-L4 due to retropulsion and enlargement of the bones, likely severe compression of the nerve roots in the cauda equina at that level. 6.Within the posterior soft tissue at the level of L3 there is an ill-defined 2.7 x 4.9 cm fluid collection extending to the skin surface. This may be postsurgical changes, however recommend correlation for possible infection. > Dictated by Railway Switch Operator INatan MD have personally reviewed and interpreted this examination/study. > Interpreting Provider: Natan Modi MD on 05/28/2025 10:09 AM Narrative 05/28/2025 10:09 AM CDT PROCEDURE: CT THORACIC SPINE WO CONTRAST, CT LUMBAR SPINE WO CONTRAST, DATE/TIME OF EXAM: 05/28/2025 3:39 AM, LOCATION [facility] INDICATION: M54.6: Acute midline thoracic back pain EXAMINATION: 1.CT of the thoracic spine without contrast 2.CT of the lumbar spine without contrast ADDITIONAL CLINICAL INFORMATION: Ordering Provider Reason For Exam: b/l LE weakness, h/o spinal surgery Technologist Note: Additional: TECHNIQUE: CT of the thoracic and lumbar spine were obtained according to standard protocol. Reformatted sagittal and coronal images were obtained by the technologist and sent to the workstation for review. CT dose reduction technique was used, including Automated Exposure Control. COMPARISON: CT lumbar spine dated 12/05/2024. FINDINGS: Thoracic spine: The alignment is normal. Vertebral bodies are normal in height without evidence of acute fracture. There is mild degenerative disc disease. Mild to moderate multilevel central canal stenosis secondary to ligamentum flavum hypertrophy, most pronounced at T10-T11. There is mild facet osteoarthritis at multiple levels. No neural foraminal stenosis is seen. There is subsegmental atelectasis in the dependent portions of the lung bases. Lumbar spine: Posterior spinal fusion hardware at L1-L5. Hardware appears intact without evidence of lucencies to suggest loosening. Laminectomy at L2-L3. 5 mm retrolisthesis of L3 on L4. Redemonstration of a chronic L3 vertebral body fracture status post kyphoplasty. An irregular lytic lesion and the sclerotic changes with cortical enlargement are noted in the L3 vertebral body. No acute fracture identified. Mild to moderate multilevel degenerative disc disease. Severe central canal stenosis at L3-L4 due to retropulsion and enlargement of the bones. There is advanced facet osteoarthritis at multiple levels. Moderate to severe multilevel neural foraminal stenosis. Status post cholecystectomy. Redemonstration of a mixed lytic and sclerotic lesion at the posterior aspect of the left ilium which may represent sequelae of Paget's. Within the posterior soft tissue at the level of L3 there is an ill-defined 2.7 x 4.9 cm fluid collection extending to the skin surface. This is not well evaluated due to the lack of intravenous contrast. This may be postsurgical changes, however recommend correlation for possible infection. Procedure Note Natan Modi MD - 05/28/2025 PROCEDURE: CT THORACIC SPINE WO CONTRAST, CT LUMBAR SPINE WO CONTRAST, DATE/TIME OF EXAM: 05/28/2025 3:39 AM, LOCATION [facility] INDICATION: M54.6: Acute midline thoracic back pain EXAMINATION: 1.CT of the thoracic spine without contrast 2.CT of the lumbar spine without contrast ADDITIONAL CLINICAL INFORMATION: Ordering Provider Reason For Exam: b/l LE weakness, h/o spinal surgery Technologist Note: Additional: TECHNIQUE: CT of the thoracic and lumbar spine were obtained accordingto standard protocol. Reformatted sagittal and coronal images were obtainedby the technologist and sent to the workstation for review. CT dosereduction technique was used, including Automated Exposure Control. COMPARISON: CT lumbar spine dated 12/05/2024. FINDINGS: Thoracic spine: The alignment is normal. Vertebral bodies are normal in height without evidence of acute fracture. There is mild degenerative disc disease.Mild to moderate multilevel central canal stenosis secondary to ligamentum flavum hypertrophy, most pronounced at T10-T11. There is mild facet osteoarthritis at multiple levels. No neural foraminal stenosis is seen. There is subsegmental atelectasis in the dependent portions of the lung bases. Lumbar spine: Posterior spinal fusion hardware at L1-L5. Hardware appears intactwithout evidence of lucencies to suggest loosening. Laminectomy at L2-L3. 5 mm retrolisthesis of L3 on L4. Redemonstration of a chronic Y8jjteskwua body fracture status post kyphoplasty. An irregular lytic lesion and the sclerotic changes with cortical enlargement are noted in the S1jnndehmsw body. No acute fracture identified. Mild to moderate multilevel degenerative disc disease. Severe central canal stenosis at L3-L4 due to retropulsion and enlargement of the bones. There is advanced facet osteoarthritis at multiple levels. Moderate to severe multilevel neural foraminal stenosis. Status post cholecystectomy. Redemonstration of a mixed lytic andsclerotic lesion at the posterior aspect of the left ilium which may represent sequelae of Paget's. Within the posterior soft tissue at the level of L3 there is anill-defined 2.7 x 4.9 cm fluid collection extending to the skin surface. This is not well evaluated due to the lack of intravenous contrast. This may be postsurgical changes, however recommend correlation for possibleinfection. IMPRESSION: 1.No evidence of acute fracture in the thoracic or lumbar spine. 2.Mild to moderate central canal stenosis in the thoracic spine, most pronounced at T10-T11 due to the given of traumathickening/calcification. 3.Redemonstration of a chronic L3 vertebral body fracture status post kyphoplasty. An irregular lytic lesion and the sclerotic changes with cortical enlargement are noted in the L3 vertebral body. However, thelytic lesion is not well evaluated due to the technique. 4.Redemonstration of posterior spinal fusion at L1 and L5 withlaminectomy at L2-L3. 5.Severe central canal stenosis at L3-L4 due to retropulsion and enlargement of the bones, likely severe compression of the nerve rootsin the cauda equina at that level. 6.Within the posterior soft tissue at the level of L3 there is an ill-defined 2.7 x 4.9 cm fluid collection extending to the skin surface. This may be postsurgical changes, however recommend correlation for possible infection. > Dictated by Railway Switch Operator I, Natan Modi MD have personally reviewed and interpreted this examination/study. > Interpreting Provider: Natan Modi MD on 05/28/2025 10:09 AM Cristian Garcia MD CT ORDERABLES Final Result * TYPE + SCREEN PANEL (05/28/2025 1:26 AM CDT) Pathologist [facility] Antibody Screen NEG 2:26 AM CDT [facility] ABO Rh O POS 05/28/2025 2:26 AM CDT [facility] Blood Bank BLOOD SPECIMEN / Unknown Venipuncture / Unknown 05/28/2025 1:26 AM CDT 05/28/2025 1:46 AM CDT Cristian Garcia MD LAB - BLOOD BANK ORDERABLES F inal Result [facility] [address] [place] [address], [facility] [phone] * (ABNORMAL) COMPREHENSIVE METABOLIC PANEL (05/28/2025 1:26 AM CDT) BUN 14 7 - 26 mg/dL 05/28/2025 2:10 AM CDT [facility] Creatinine 0.86 0.71 - 1.16 mg/dL 05/28/2025 2:10 AM CDT [facility] Sodium 140 136 - 145 mmol/L 05/28/2025 2:10 AM CDT [facility] Potassium 3.9 3.5 - 4.5 mmol/L 05/28/2025 2:10 AM [facility] Chloride 110(H) 98 - 107 mmol/L 05/28/2025 2:10 AM [facility] CO2 24 22 - 29 mmol/L 05/28/2025 2:10 AM [facility] Glucose 107(H) 70 - 99 mg/dL 05/28/2025 2:10 AM [facility] Calcium 8.9 8.4 - 10.2 mg/dL 05/28/2025 2:10 AM [facility] Protein Total 6.3 6.0 - 8.3 g/dL 05/28/2025 2:10 AM [facility] Albumin 4.3 3.4 - 5.0 g/dL 05/28/2025 2:10 AM [facility] Bilirubin Total 0.3 0.2 - 1.2 mg/dL 05/28/2025 2:10 AM [facility] Alkaline Phosphatase 129 40 - 150 U/L 05/28/2025 2:10 AM [facility] ALT 23 5 - 55 U/L 05/28/2025 2:10 AM [facility] AST 25 5 - 34 U/L 05/28/2025 2:10 AM [facility] Anion Gap 6 6 - 16 05/28/2025 2:10 AM [facility] BUN/Creatinine Ratio 16 7 - 23 05/28/2025 2:10 AM [facility] Osmolality Calculated 291 275 - 295 mOsm/kg 05/28/2025 2:10 AM [facility] Albumin/Globulin Ratio 2.2 1.1 - 2.3 05/28/2025 2:10 AM [facility] eGFR by CKD-EPI >90 >=90 mL/min/1.7 3 m2 05/28/2025 2:10 AM [facility] Comment:Estimated Glomerular Filtration Rate (eGFR) calculated using the CKD-EPI Creatinine Equation (2020), per the National Kidney Foundation and [place] [employer] recommendations. Blood BLOOD SPECIMEN / Unknown Venipuncture / Unknown 05/28/2025 1:26 AM CDT 05/28/2025 1:39 AM CDT us Cristian Garcia MD LAB - CHEMISTRY ORDERABLES Fi nal Result [facility] [address] [place] [address], [facility] [phone] * (ABNORMAL) CBC W AUTO DIFFERENTIAL (05/28/2025 1:26 AM CDT) WBC 10.0 4.0 - 10.7 x10E9/L 05/28/2025 1:44 AM [facility] RBC Count 5.40 4.30 - 5.80 x10E12/L 05/28/2025 1:44 AM [facility] Hemoglobin 15.4 13.3 - 17.5 g/dL 05/28/2025 1:44 AM [facility] Hematocrit 45.7 38.7 - 51.1 % 05/28/2025 1:44 AM [facility] MCV 84.6 80.0 - 98.0 fL 05/28/2025 1:44 AM [facility] MCH 28.5 26.7 - 33.6 pg 05/28/2025 1:44 AM [facility] MCHC 33.7 31.7 - 36.3 g/dL 05/28/2025 1:44 AM [facility] RDW-CV 14.9(H) 11.3 - 14.8 % 05/28/2025 1:44 AM [facility] Platelet Count 219 150 - 420 x10E9/L 05/28/2025 1:44 AM [facility] MPV 10.8 7.8 - 11.4 fL 05/28/2025 1:44 AM [facility] Neutrophil % 45.7 41.0 - 74.0 % 05/28/2025 1:44 AM [facility] Lymphocyte % 37.9 17.0 - 47.0 % 05/28/2025 1:44 AM [facility] Monocyte % 11.2(H) 3.0 - 11.0 % 05/28/2025 1:44 AM [facility] Eosinophil % 4.0 0.0 - 7.0 % 05/28/2025 1:44 AM T [facility] Basophil % 0.9 0.0 - 1.6 % 05/28/2025 1:44 AM [facility] Immature Granulocytes % 0.3 0.0 - 1.0 % 05/28/2025 1:44 AM [facility] Neutrophil Absolute 4.59 1.60 - 7.50 x10E9/L 05/28/2025 1:44 AM [facility] Lymphocyte Absolute 3.80 1.00 - 4.40 x10E9/L 05/28/2025 1:44 AM [facility] Monocyte Absolute 1.12(H) 0.15 - 1.00 x10E9/L 05/28/2025 1:44 AM [facility] Eosinophil Absolute 0.40 0.00 - 0.60 x10E9/L 05/28/2025 1:44 AM [facility] Basophil Absolute 0.09 0.00 - 0.13 x10E9/L 05/28/2025 1:44 AM [facility] Blood BLOOD SPECIMEN / Unknown Venipuncture / Unknown 05/28/2025 1:26 AM CDT 05/28/2025 1:39 AM CDT us Cristian Garcia MD LAB - HEMATOLOGY ORDERABLES F inal Result Performing Organization Address City/State/[facility] Co de Phone Number [facility] [address] [place] [phone], [facility] [phone] documented in this encounter Visit Diagnoses Diagnosis Multiple myeloma, remission status unspecified (HCC)- Primary Multiple myeloma, remission status unspecified (HCC) Acute midline low back pain, unspecified whether sciatica present Acute midline thoracic back pain Type 2 diabetes mellitus without complication, unspecified whether oysterman insulin use (HCC) Primary hypertension Unspecified essential hypertension IVDU (intravenous drug user) Other, mixed, or unspecified nondependent drug abuse, unspecified Cirrhosis of liver without ascites, unspecified hepatic cirrhosis type (HCC) Hepatitis C virus infection without hepatic coma, unspecified chronicity MRSA bacteremia Bacteremia Acute midline thoracic back pain Acute midline low back pain, unspecified whether sciatica present MRSA bacteremia Bacteremia DM (diabetes mellitus) ([facility]) Type II or unspecified type diabetes mellitus without mention of complication, not stated as uncontrolled HTN (hypertension) Unspecified essential hypertension * Assessment & Plan Note - Ирина Alamo MD - 05/31/2025 9:20 AM CDT Associated Problem(s): Acute midline low back pain, unspecified whether sciatica present - Multiple spinal surgeries: kyphoplasty, instrumented fusion and laminectomy - Now with worsening back pain and stenosis on CT - Patient previously on Meenu-VRD and was slated for auto stem cell transplant however d/t cirrhosisthey were switched to Revlimid daily - takes eliquis at home due to hypercoaguable effects of Revlimid - home pain management: 20mg oxycodone BID, flexiril and lidocaine PRN Plan: - can bring home Revlimid for patient to continue to use - Neurosurgery onboard, appreciate recs: - no need for MRI as per neurosurgery -Started medrol dose pack for pain 05/28 - resumed home eliquis - continue acyclovir for ppx - pain management as follows: 20mg OxyContin, 5mg oxycodone PRN, dilaudid 0.4 PRN -PT/OT -Will need follow up in 4 weeks and MRI lumber spine OP. -Continue with gabapentin 300mg TID -Laxatives while on opioids for constipation. * Assessment & Plan Note - Ирина Alamo MD - 05/31/2025 9:20 AM CDT Associated Problem(s): MRSA bacteremia - complication of L3 kyphoplasty. Treated with antibiotics and currently on doxycycline for furtherppx given presence of multiple hardware in the spine. - follows with ID outpatient Plan: - continue doxycycline ppx * Assessment & Plan Note - Ирина Alamo MD - 05/31/2025 9:20 AM CDT Associated Problem(s): DM (diabetes mellitus) (HCC) patient takes jardiance 25mg daily at home -ISS while inpatient * Assessment & Plan Note - Ирина Alamo MD - 05/31/2025 9:20 AM CDT Associated Problem(s): HTN (hypertension) -Restart home Losartan * Assessment & Plan Note - Ирина Alamo MD - 05/31/2025 9:19 AM CDT Associated Problem(s): Multiple myeloma, remission status unspecified (HCC) - Multiple spinal surgeries: kyphoplasty, instrumented fusion and laminectomy - Now with worsening back pain and stenosis on CT - Patient previously on Meenu-VRD and was slated for auto stem cell transplant however d/t cirrhosisthey were switched to Revlimid daily - takes eliquis at home due to hypercoaguable effects of Revlimid - home pain management: 20mg oxycodone BID, flexiril and lidocaine PRN Plan: - can bring home Revlimid for patient to continue to use - Neurosurgery onboard, appreciate recs: - no need for MRI as per neurosurgery -Started medrol dose pack for pain 05/28 - resumed home eliquis - continue acyclovir for ppx - pain management as follows: 20mg OxyContin, 5mg oxycodone PRN, dilaudid 0.4 PRN -PT/OT -Will need follow up in 4 weeks and MRI lumber spine OP. -Continue with gabapentin 300mg TID -Laxatives while on opioids for constipation. * Assessment & Plan Note - Ирина Alamo MD - 05/31/2025 9:19 AM CDT Associated Problem(s): Acute midline thoracic back pain - Multiple spinal surgeries: kyphoplasty, instrumented fusion and laminectomy - Now with worsening back pain and stenosis on CT - Patient previously on Meenu-VRD and was slated for auto stem cell transplant however d/t cirrhosisthey were switched to Revlimid daily - takes eliquis at home due to hypercoaguable effects of Revlimid - home pain management: 20mg oxycodone BID, flexiril and lidocaine PRN Plan: - can bring home Revlimid for patient to continue to use - Neurosurgery onboard, appreciate recs: - no need for MRI as per neurosurgery -Started medrol dose pack for pain 05/28 - resumed home eliquis - continue acyclovir for ppx - pain management as follows: 20mg OxyContin, 5mg oxycodone PRN, dilaudid 0.4 PRN -PT/OT -Will need follow up in 4 weeks and MRI lumber spine OP. -Continue with gabapentin 300mg TID -Laxatives while on opioids for constipation. * Assessment & Plan Note - Ирина Alamo MD - 05/30/2025 7:17 AM CDT Associated Problem(s): Multiple myeloma, remission status unspecified (HCC) - Multiple spinal surgeries: kyphoplasty, instrumented fusion and laminectomy - Now with worsening back pain and stenosis on CT - Patient previously on Meenu-VRD and was slated for auto stem cell transplant however d/t cirrhosisthey were switched to Revlimid daily - takes eliquis at home due to hypercoaguable effects of Revlimid - home pain management: 20mg oxycodone BID, flexiril and lidocaine PRN Plan: - can bring home Revlimid for patient to continue to use - Neurosurgery onboard, appreciate recs: - no need for MRI as per neurosurgery -Started medrol dose pack for pain 05/28 - resumed home eliquis - continue acyclovir for ppx - pain management as follows: 20mg OxyContin, 5mg oxycodone PRN, dilaudid 0.4 PRN -PT/OT -Will need follow up in 4 weeks and MRI lumber spine OP. -Continue with gabapentin 300mg TID -Laxatives while on opioids for constipation. * Assessment & Plan Note - Ирина Alamo MD - 05/30/2025 7:17 AM CDT Associated Problem(s): Acute midline thoracic back pain - Multiple spinal surgeries: kyphoplasty, instrumented fusion and laminectomy - Now with worsening back pain and stenosis on CT - Patient previously on Meenu-VRD and was slated for auto stem cell transplant however d/t cirrhosisthey were switched to Revlimid daily - takes eliquis at home due to hypercoaguable effects of Revlimid - home pain management: 20mg oxycodone BID, flexiril and lidocaine PRN Plan: - can bring home Revlimid for patient to continue to use - Neurosurgery onboard, appreciate recs: - no need for MRI as per neurosurgery -Started medrol dose pack for pain 05/28 - resumed home eliquis - continue acyclovir for ppx - pain management as follows: 20mg OxyContin, 5mg oxycodone PRN, dilaudid 0.4 PRN -PT/OT -Will need follow up in 4 weeks and MRI lumber spine OP. -Continue with gabapentin 300mg TID -Laxatives while on opioids for constipation. * Assessment & Plan Note - Ирина Alamo MD - 05/30/2025 7:17 AM CDT Associated Problem(s): Acute midline low back pain, unspecified whether sciatica present - Multiple spinal surgeries: kyphoplasty, instrumented fusion and laminectomy - Now with worsening back pain and stenosis on CT - Patient previously on Meenu-VRD and was slated for auto stem cell transplant however d/t cirrhosisthey were switched to Revlimid daily - takes eliquis at home due to hypercoaguable effects of Revlimid - home pain management: 20mg oxycodone BID, flexiril and lidocaine PRN Plan: - can bring home Revlimid for patient to continue to use - Neurosurgery onboard, appreciate recs: - no need for MRI as per neurosurgery -Started medrol dose pack for pain 05/28 - resumed home eliquis - continue acyclovir for ppx - pain management as follows: 20mg OxyContin, 5mg oxycodone PRN, dilaudid 0.4 PRN -PT/OT -Will need follow up in 4 weeks and MRI lumber spine OP. -Continue with gabapentin 300mg TID -Laxatives while on opioids for constipation. * Assessment & Plan Note - Ирина Alamo MD - 05/30/2025 7:17 AM CDT Associated Problem(s): MRSA bacteremia - complication of L3 kyphoplasty. Treated with antibiotics and currently on doxycycline for furtherppx given presence of multiple hardware in the spine. - follows with ID outpatient Plan: - continue doxycycline ppx * Assessment & Plan Note - Ирина Alamo MD - 05/30/2025 7:17 AM CDT Associated Problem(s): DM (diabetes mellitus) (HCC) patient takes jardiance 25mg daily at home -ISS while inpatient * Assessment & Plan Note - Ирина Alamo MD - 05/30/2025 7:17 AM CDT Associated Problem(s): HTN (hypertension) -Restart home Losartan * Assessment & Plan Note - Ирина Alamo MD - 05/29/2025 4:23 PM CDT Associated Problem(s): MRSA bacteremia - complication of L3 kyphoplasty. Treated with antibiotics and currently on doxycycline for furtherppx given presence of multiple hardware in the spine. - follows with ID outpatient Plan: - continue doxycycline ppx * Assessment & Plan Note - Ирина Alamo MD - 05/29/2025 4:23 PM CDT Associated Problem(s): Multiple myeloma, remission status unspecified (HCC) - Multiple spinal surgeries: kyphoplasty, instrumented fusion and laminectomy - Now with worsening back pain and stenosis on CT - Patient previously on Meenu-VRD and was slated for auto stem cell transplant however d/t cirrhosisthey were switched to Revlimid daily - takes eliquis at home due to hypercoaguable effects of Revlimid - home pain management: 20mg oxycodone BID, flexiril and lidocaine PRN Plan: - can bring home Revlimid for patient to continue to use - Neurosurgery onboard, appreciate recs: - no need for MRI -Started medrol dose pack for pain - resumed home eliquis - continue acyclovir for ppx - pain management as follows: 20mg OxyContin, 5mg oxycodone PRN, dilaudid 0.4 PRN -PT/OT -Will need follow up in 4 weeks and MRI lumber spine OP. -Continue with gabapentin 300mg TID -Laxatives while on opioids for constipation. * Assessment & Plan Note - Ирина Alamo MD - 05/29/2025 4:23 PM CDT Associated Problem(s): Acute midline thoracic back pain - Multiple spinal surgeries: kyphoplasty, instrumented fusion and laminectomy - Now with worsening back pain and stenosis on CT - Patient previously on Meenu-VRD and was slated for auto stem cell transplant however d/t cirrhosisthey were switched to Revlimid daily - takes eliquis at home due to hypercoaguable effects of Revlimid - home pain management: 20mg oxycodone BID, flexiril and lidocaine PRN Plan: - can bring home Revlimid for patient to continue to use - Neurosurgery onboard, appreciate recs: - no need for MRI -Started medrol dose pack for pain - resumed home eliquis - continue acyclovir for ppx - pain management as follows: 20mg OxyContin, 5mg oxycodone PRN, dilaudid 0.4 PRN -PT/OT -Will need follow up in 4 weeks and MRI lumber spine OP. -Continue with gabapentin 300mg TID -Laxatives while on opioids for constipation. * Assessment & Plan Note - Ирина Alamo MD - 05/29/2025 4:23 PM CDT Associated Problem(s): Acute midline low back pain, unspecified whether sciatica present - Multiple spinal surgeries: kyphoplasty, instrumented fusion and laminectomy - Now with worsening back pain and stenosis on CT - Patient previously on Meenu-VRD and was slated for auto stem cell transplant however d/t cirrhosisthey were switched to Revlimid daily - takes eliquis at home due to hypercoaguable effects of Revlimid - home pain management: 20mg oxycodone BID, flexiril and lidocaine PRN Plan: - can bring home Revlimid for patient to continue to use - Neurosurgery onboard, appreciate recs: - no need for MRI -Started medrol dose pack for pain - resumed home eliquis - continue acyclovir for ppx - pain management as follows: 20mg OxyContin, 5mg oxycodone PRN, dilaudid 0.4 PRN -PT/OT -Will need follow up in 4 weeks and MRI lumber spine OP. -Continue with gabapentin 300mg TID -Laxatives while on opioids for constipation. * Assessment & Plan Note - Ирина Alamo MD - 05/29/2025 4:23 PM CDT Associated Problem(s): DM (diabetes mellitus) (HCC) patient takes jardiance 25mg daily at home -ISS while inpatient * Assessment & Plan Note - Ирина Alamo MD - 05/29/2025 4:23 PM CDT Associated Problem(s): HTN (hypertension) -Restart home Losartan * Assessment & Plan Note - Tejinder Santiago MD - 05/29/2025 4:19 PM CDT Associated Problem(s): DM (diabetes mellitus) (HCC) - patient takes jardiance 25mg daily at home Plan: - started low dose SSI * Assessment & Plan Note - Ana Gill MD - 05/28/2025 3:11 PM CDT Associated Problem(s): Multiple myeloma, remission status unspecified (HCC) - Multiple spinal surgeries: kyphoplasty, instrumented fusion and laminectomy - Now with worsening back pain and stenosis on CT - Patient previously on Meenu-VRD and was slated for auto stem cell transplant however d/t cirrhosisthey were switched to Revlimid daily - takes eliquis at home due to hypercoaguable effects of Revlimid - home pain management: 20mg oxycodone BID, flexiril and lidocaine PRN Plan: - can bring home Revlimid for patient to continue to use - Neurosurgery onboard, appreciate recs - f/u MRI of spine - hold eliquis per neurosurgery recs - continue acyclovir for ppx - pain management as follows: 20mg oxycodone BID, 5mg oxycodone PRN, dilaudid 0.4 PRN, * Assessment & Plan Note - Ana Gill MD - 05/28/2025 3:11 PM CDT Associated Problem(s): Acute midline low back pain, unspecified whether sciatica present - Multiple spinal surgeries: kyphoplasty, instrumented fusion and laminectomy - Now with worsening back pain and stenosis on CT - Patient previously on Meenu-VRD and was slated for auto stem cell transplant however d/t cirrhosisthey were switched to Revlimid daily - takes eliquis at home due to hypercoaguable effects of Revlimid - home pain management: 20mg oxycodone BID, flexiril and lidocaine PRN Plan: - can bring home Revlimid for patient to continue to use - Neurosurgery onboard, appreciate recs - f/u MRI of spine - hold eliquis per neurosurgery recs - continue acyclovir for ppx - pain management as follows: 20mg oxycodone BID, 5mg oxycodone PRN, dilaudid 0.4 PRN, * Assessment & Plan Note - Ana Gill MD - 05/28/2025 3:11 PM CDT Associated Problem(s): Acute midline thoracic back pain - Multiple spinal surgeries: kyphoplasty, instrumented fusion and laminectomy - Now with worsening back pain and stenosis on CT - Patient previously on Meenu-VRD and was slated for auto stem cell transplant however d/t cirrhosisthey were switched to Revlimid daily - takes eliquis at home due to hypercoaguable effects of Revlimid - home pain management: 20mg oxycodone BID, flexiril and lidocaine PRN Plan: - can bring home Revlimid for patient to continue to use - Neurosurgery onboard, appreciate recs - f/u MRI of spine - hold eliquis per neurosurgery recs - continue acyclovir for ppx - pain management as follows: 20mg oxycodone BID, 5mg oxycodone PRN, dilaudid 0.4 PRN, * Assessment & Plan Note - Ana Gill MD - 05/28/2025 3:11 PM CDT Associated Problem(s): HTN (hypertension) Home: patient suggests they do not currently take any anti-HTN at home and that they were previously on coreg and losartan Plan: - Can restart home medications as needed * Assessment & Plan Note - Ana Gill MD - 05/28/2025 3:11 PM CDT Associated Problem(s): Hepatitis C virus infection without hepatic coma - Cirrhosis likely 2/2 untreated Hepatitis C. Patient underwent Mavyret treatment via ID outpatientID and was due for Hep C viral load to assess for clearance on 05/29/25. - denies any current IVDU Plan: - Obtain Hep C viral load (?) * Assessment & Plan Note - Ana Gill MD - 05/28/2025 3:11 PM CDT Associated Problem(s): MRSA bacteremia - complication of L3 kyphoplasty. Treated with antibiotics and currently on doxycycline for furtherppx given presence of multiple hardware in the spine. - follows with ID outpatient Plan: - continue doxycycline * Assessment & Plan Note - Tejinder Santiago MD - 05/28/2025 7:56 AM CDT Associated Problem(s): Multiple myeloma, remission status unspecified (HCC) - Multiple spinal surgeries: kyphoplasty, instrumented fusion and laminectomy - Now with worsening back pain and stenosis on CT - Patient previously on Meenu-VRD and was slated for auto stem cell transplant however d/t cirrhosisthey were switched to Revlimid daily - takes eliquis at home due to hypercoaguable effects of Revlimid - home pain management: 20mg oxycodone BID, flexiril and lidocaine PRN Plan: - can bring home Revlimid for patient to continue to use - Neurosurgery onboard, appreciate recs - f/u MRI of spine - hold eliquis per neurosurgery recs - continue acyclovir for ppx - pain management as follows: 20mg oxycodone BID, 5mg oxycodone PRN, dilaudid 0.4 PRN, * Assessment & Plan Note - Tejinder Santiago MD - 05/28/2025 7:56 AM CDT Associated Problem(s): Acute midline low back pain, unspecified whether sciatica present - Multiple spinal surgeries: kyphoplasty, instrumented fusion and laminectomy - Now with worsening back pain and stenosis on CT - Patient previously on Meenu-VRD and was slated for auto stem cell transplant however d/t cirrhosisthey were switched to Revlimid daily - takes eliquis at home due to hypercoaguable effects of Revlimid - home pain management: 20mg oxycodone BID, flexiril and lidocaine PRN Plan: - can bring home Revlimid for patient to continue to use - Neurosurgery onboard, appreciate recs - f/u MRI of spine - hold eliquis per neurosurgery recs - continue acyclovir for ppx - pain management as follows: 20mg oxycodone BID, 5mg oxycodone PRN, dilaudid 0.4 PRN, * Assessment & Plan Note - Tejinder Santiago MD - 05/28/2025 7:56 AM CDT Associated Problem(s): Acute midline thoracic back pain - Multiple spinal surgeries: kyphoplasty, instrumented fusion and laminectomy - Now with worsening back pain and stenosis on CT - Patient previously on Meenu-VRD and was slated for auto stem cell transplant however d/t cirrhosisthey were switched to Revlimid daily - takes eliquis at home due to hypercoaguable effects of Revlimid - home pain management: 20mg oxycodone BID, flexiril and lidocaine PRN Plan: - can bring home Revlimid for patient to continue to use - Neurosurgery onboard, appreciate recs - f/u MRI of spine - hold eliquis per neurosurgery recs - continue acyclovir for ppx - pain management as follows: 20mg oxycodone BID, 5mg oxycodone PRN, dilaudid 0.4 PRN, * Assessment & Plan Note - Tejinder Santiago MD - 05/28/2025 7:56 AM CDT Associated Problem(s): HTN (hypertension) Home: patient suggests they do not currently take any anti-HTN at home and that they were previously on coreg and losartan Plan: - Can restart home medications as needed * Assessment & Plan Note - Tejinder Santiago MD - 05/28/2025 7:56 AM CDT Associated Problem(s): Hepatitis C virus infection without hepatic coma - Cirrhosis likely 2/2 untreated Hepatitis C. Patient underwent Mavyret treatment via ID outpatientID and was due for Hep C viral load to assess for clearance on 05/29/25. - denies any current IVDU Plan: - Obtain Hep C viral load (?) * Assessment & Plan Note - Tejinder Santiago MD - 05/28/2025 7:56 AM CDT Associated Problem(s): MRSA bacteremia - complication of L3 kyphoplasty. Treated with antibiotics and currently on doxycycline for furtherppx given presence of multiple hardware in the spine. - follows with ID outpatient Plan: - continue doxycycline documented in this encounter Administered Medications Inactive Administered Medications - up to 3 most recent administrations Medication Order MAR Action Action Date Dose Rate Site 0.9% NaCl injection 1-10 mL 1-10 mL, Intracatheter, PRN, Other, peripheral line flush, Starting on [facility] 05/28/25 at 0404, Until 05/31/25 at 1025, Flush peripheral IV catheter with 1-10 mL of normal saline before and after medications and prn to clear blood from the line or to verify patency. 0.9% NaCl injection 3 mL 3 mL, Intracatheter, EVERY 8 HOURS, First dose on [facility] 05/28/25 at 0600, Until Discontinued, Flush peripheral IV catheter with 3 mL of normal saline every 8 hours. $ Given 05/31/2025 6:15 AM CDT 3 mL $ Given 05/30/2025 8:55 PM CDT 3 mL $ Given 05/30/2025 6:41 AM CDT 3 mL acyclovir (Zovirax) capsule 400 mg 400 mg, Oral, 2 TIMES DAILY, First dose on [facility] 05/28/25 at 0900, Until Discontinued, Indication for anti-infective therapy: Chronic prophylaxis $ Given 05/31/2025 9:02 AM CDT 400 mg $ Given 05/30/2025 8:53 PM CDT 400 mg $ Given 05/30/2025 9:21 AM CDT 400 mg apixaban (Eliquis) tablet 5 mg 5 mg, Oral, 2 TIMES DAILY, First dose on [facility] 05/28/25 at 0900, Until Discontinued $ Given 05/31/2025 9:03 AM CDT 5 mg $ Given 05/30/2025 8:53 PM CDT 5 mg $ Given 05/30/2025 9:21 AM CDT 5 mg carvedilol (Coreg) tablet 12.5 mg 12.5 mg, Oral, 2 TIMES DAILY WITH MEALS, First dose on [facility] 05/28/25 at 0800, Until Discontinued, Take with food $ Given 05/31/2025 9:02 AM CDT 12.5 mg $ Given 05/30/2025 5:12 PM CDT 12.5 mg $ Given 05/30/2025 9:21 AM CDT 12.5 mg cyclobenzaprine (Flexeril) tablet 10 mg 10 mg, Oral, 2 TIMES DAILY PRN, Muscle Spasms, Starting on [facility] 05/28/25 at 0615, Until Sun05/31/25 at 1025 $ Given 05/28/2025 1:34 PM CDT 10 mg dextrose IV 12.5 g 12.5 g, Intravenous, PRN, Other, Bedside Glucose less than 70 mg/dL -If NOT able to eat and/or NPO and with IV Access, Starting on [facility] 05/28/25 at 0626, Until Sun05/31/25 at 1025, If NOT able to eat and/or NPO and with IV Access: For Bedside Glucose 54-69 mg/dL give 12.5 g Dextrose IV STAT For Bedside Glucose LESS than 54 mg/dl verify with a second Bedside Glucose (from a different site) and give 25 g Dextrose IV STAT Re-check and Re-treat blood glucose EVERY , 10-25 minutes until blood glucose GREATER than or equal to 80 mg/dl. NOTIFY PROVIDER OF HYPOGLYCEMIC EVENT. dextrose IV 25 g 25 g, Intravenous, PRN, Other, Bedside Glucose less than 70 mg/dL -If NOT able to eat and/or NPO and with IV Access, Starting on [facility] 05/28/25 at 0626, Until Sun05/31/25 at 1025, If NOT able to eat and/or NPO and with IV Access: For Bedside Glucose LESS than 54 mg/dl verify with a second Bedside Glucose (from a different site) and give 25 g Dextrose IV STAT Re-check and Re-treat blood glucose EVERY - 10-25 minutes until blood glucose GREATER than or equal to 80 mg/dl. - If repeat bedside glucose 54-79 give 12.5 g Dextrose IV STAT NOTIFY PROVIDER OF HYPOGLYCEMIC EVENT. doxycycline monohydrate capsule 100 mg 100 mg, Oral, EVERY 12 HOURS, First dose on [facility] 05/28/25 at 0900, Until Discontinued, Administer at least 2 hours before or 4 hours after antacids, sucralfate, metals (eg, iron, zinc), multivitamin preparations, tube feeds Administer with 8 oz of water to prevent localized caustic injury. Flush thoroughly with water if administered by enteral tube., Indication for anti-infective therapy: Chronic prophylaxis $ Given 05/31/2025 9:03 AM CDT 100 mg $ Given 05/30/2025 8:55 PM CDT 100 mg $ Given 05/30/2025 9:21 AM CDT 100 mg famotidine (Pepcid) tablet 20 mg 20 mg, Oral, DAILY, First dose on [facility] 05/28/25 at 0900, Until Discontinued $ Given 05/31/2025 9:03 AM CDT 20 mg $ Given 05/30/2025 9:21 AM CDT 20 mg $ Given 05/29/2025 8:12 AM CDT 20 mg gabapentin (Neurontin) capsule 300 mg 300 mg, Oral, AT BEDTIME, First dose on [facility] 05/28/25 at 2100, Until Discontinued $ Given 05/30/2025 8:54 PM CDT 300 mg $ Given 05/29/2025 8:46 PM CDT 300 mg $ Given 05/28/2025 8:45 PM CDT 300 mg glucagon (Glucagen) injection 1 mg 1 mg, Subcutaneous, PRN, Bedside Glucose less than 70 mg/dL - If NOT able to eat and/or NPO and withOUT IV Access, Starting on [facility] 05/28/25 at 0626, Until [place] 05/31/25 at 1025, If NOT able to eat and/or NPO and NO IV Access: For Bedside glucose 54-69 mg/dL - Give 1 mg subcutaneous For Bedside Glucose LESS than 54 mg/dl - verify with a second bedside glucose (from a different site) - Give 1 mg subcutaneous Re-check and Re-treat blood glucose EVERY 10-25 minutes until blood glucose GREATER than or equal to 80 mg/dl. NOTIFY PROVIDER OF HYPOGLYCEMIC EVENT. Reconstitute vial with 1 mL of sterile water for injection for a final concentration of 1 mg/mL; shake vial gently; use immediately and discard unused portion glucose (Diabetic Use) oral gel Oral, PRN, Other, Bedside Glucose less than 70 mg/dL, Starting on Faby 05/28/25 at 0626, Until [place] 05/31/25 at 1025, If able to take oral medications: For Bedside Glucose 54 - 69 mg/dL Give 15 grams of oral carbohydrates - 1 glucose gel (see MAR) If patient refuses glucose gel, then offer: - 4 ounces of fruit juice OR - 4 ounces non-diet soda OR - 8 ounces of fat-free milk For Bedside Glucose LESS than 54 mg/dL verify with a second Bedside Glucose (from a different site) - If pt is symptomatic, do not delay treatment - If accuracy of the POC glucose is in question, confirm glucose with aSTAT laboratory test Give 30 grams of oral carbohydrates - 2 glucose gels (see MAR) If patient refuses glucose gel, then offer: - 8 ounces of fruit juice OR - 8 ounces non-diet soda OR - 16 ounces of fat-free milk Re-check and Re-treat blood glucose EVERY 10-25 minutes until blood glucose GREATER than or equal to 80 mg/dl. - If on recheck, bedside glucose 54-79 mg/dL - Give 15 grams of oral carbohydrates (see above for choices) NOTIFY PROVIDER OF HYPOGLYCEMIC EVENT. HYDROmorphone (Dilaudid) injection 0.4 mg 0.4 mg, Intravenous, EVERY 3 HOURS PRN, Severe Pain, Starting on Faby 05/28/25 at 0640, Until 05/31/25 at 1025, Patient preference for lesser PRN pain meds [...] patient cannot tolerate oral intake $ Given 05/30/2025 5:12 P M CDT 0.4 mg $ Given 05/29/2025 9:56 PM CDT 0.4 mg $ Given 05/29/2025 4:23 PM CDT 0.4 mg HYDROmorphone (Dilaudid) injection 0.5 mg 0.5 mg, Intravenous, EVERY 30 MIN PRN, Moderate Pain, Severe Pain, 3 doses, Starting on Faby 05/28/25 at 0121, Until [place] 05/28/25 at 0640, Patient preference for lesser PRN pain meds [...] patient cannot tolerate oral intake $ Given 05/28/2025 4:22 A M CDT 0.5 mg $ Given 05/28/2025 1:29 AM CDT 0.5 mg insulin aspart (NovoLOG) pen 0-6 Units 0-6 Units, Subcutaneous, EVERY 6 HOURS, First dose on Sun05/28/25 at 0700, Until Discontinued, Low Dose: Correction Insulin BG (mg/dL) Corrective Action LESS than 70 follow Hypoglycemic guidelines 70-180 NO Correction insulin 181-220 GIVE 2 units of insulin 221-260 GIVE 3 units of insulin 261-300 GIVE 4 units of insulin 301-350 GIVE 5 units of insulin Greater than 350 GIVE 6 units of insulin and notify physician DO NOT HOLD if Patient is NPO. If patient has orders for Mealtime insulin combine and give at same time. . WASTE DISPOSAL INSTRUCTIONS: Black Bin Disposal required. lidocaine (Lidoderm) 5 % patch 2 patch 2 patch, Administer over 12 Hours, DAILY, First dose on Sun05/28/25 at 0900, Until Discontinued $ Applied 05/30/2025 9:22 AM CDT 2 patches Back $ Applied 05/29/2025 8:12 AM CDT 2 patches Ba ck $ Applied 05/28/2025 9:01 AM CDT 2 patches Ba ck loratadine (Claritin) tablet 10 mg 10 mg, Oral, DAILY, First dose on Faby 05/28/25 at 0900, Until Discontinued $ Given 05/31/2025 9:03 AM CDT 10 mg $ Given 05/30/2025 9:21 AM CDT 10 mg $ Given 05/29/2025 8:13 AM CDT 10 mg losartan (Cozaar) tablet 100 mg 100 mg, Oral, DAILY, First dose on Sun05/28/25 at 0900, Until Discontinued $ Given 05/31/2025 9:02 AM CDT 100 mg $ Given 05/30/2025 9:21 AM CDT 100 mg methylPREDNISolone (Medrol) tablet 12 mg 12 mg, Oral, DAILY WITH BREAKFAST, 1 dose, First dose on Sun05/31/25 at 0800 $ Given 05/31/2025 9:02 AM CDT 12 mg methylPREDNISolone (Medrol) tablet 16 mg 16 mg, Oral, DAILY WITH BREAKFAST, 1 dose, First dose on Sun05/30/25 at 0800 $ Given 05/30/2025 9:21 AM CDT 16 mg methylPREDNISolone (Medrol) tablet 20 mg 20 mg, Oral, DAILY WITH BREAKFAST, 1 dose, First dose on Sun05/29/25 at 0800 $ Given 05/29/2025 8:12 AM CDT 20 mg methylPREDNISolone (Medrol) tablet 24 mg 24 mg, Oral, DAILY WITH BREAKFAST, 1 dose, First dose on Sun05/28/25 at 1900 $ Given 05/28/2025 8:53 PM CDT 24 mg methylPREDNISolone (Medrol) tablet 4 mg 4 mg, Oral, DAILY WITH BREAKFAST, 1 dose, First dose on Sun06/02/25 at 0800 methylPREDNISolone (Medrol) tablet 8 mg 8 mg, Oral, DAILY WITH BREAKFAST, 1 dose, First dose on Sun06/01/25 at 0800 mirtazapine (Remeron) tablet 15 mg 15 mg, Oral, AT BEDTIME, First dose on Sun05/28/25 at 2100, Until Discontinued $ Given 05/30/2025 8:53 PM CDT 15 mg $ Given 05/29/2025 8:48 PM CDT 15 mg $ Given 05/28/2025 8:45 PM CDT 15 mg montelukast (Singulair) tablet 10 mg 10 mg, Oral, AT BEDTIME, First dose on Sun05/28/25 at 2100, Until Discontinued $ Given 05/30/2025 8:54 PM CDT 10 mg $ Given 05/29/2025 8:46 PM CDT 10 mg $ Given 05/28/2025 8:45 PM CDT 10 mg oxyCODONE (immediate release) (Roxicodone) tablet 5 mg 5 mg, Oral, EVERY 4 HOURS PRN, Moderate Pain, Starting on Sun05/28/25 at 0640, Until 05/31/25 at 1025, Patient preference for lesser PRN pain meds [...] patient cannot tolerate oral intake $ Given 05/30/2025 5:12 PM CDT 5 mg $ Given 05/29/2025 1:25 PM CDT 5 mg $ Given 05/28/2025 4:13 PM CDT 5 mg oxyCODONE CR 12hr (OxyCONTIN) tablet 20 mg 20 mg, Oral, EVERY 12 HOURS, First dose on Faby 05/28/25 at 0900, Until Discontinued, Do not crush, chew, or cut in half. $ Given 05/31/2025 9:03 AM CDT 20 mg $ Given 05/30/2025 8:53 PM CDT 20 mg $ Given 05/30/2025 9:21 AM CDT 20 mg polyethylene glycol 3350 (Miralax) packet 17 g 17 g, Oral, DAILY, First dose on Faby 05/28/25 at 0900, Until Discontinued, 17 g dose: mix in 8 ounces of water, juice, soda, coffee or tea prior to administration. For bowel prep check for other instructions. $ Given 05/30/2025 9:21 AM CDT 17 g $ Given 05/29/2025 8:12 AM CDT 17 g $ Given 05/28/2025 9:01 AM CDT 17 g senna (Senokot) tablet 8.6 mg 8.6 mg, Oral, 2 TIMES DAILY, First dose on Sun05/28/25 at 0900, Until Discontinued $ Given 05/31/2025 9:03 AM CDT 8.6 mg $ Given 05/30/2025 8:54 PM CDT 8.6 mg $ Given 05/30/2025 9:21 AM CDT 8.6 mg sertraline (Zoloft) tablet 50 mg 50 mg, Oral, DAILY, First dose on Sun05/28/25 at 0900, Until Discontinued, Avoid concurrent administration with grapefruit juice $ Given 05/31/2025 9:03 AM CDT 50 mg $ Given 05/30/2025 9:21 AM CDT 50 mg $ Given 05/29/2025 8:13 AM CDT 50 mg sodium phosphate 30 mmol in 260 mL bolus 30 mmol, at 43.33 mL/hr, Administer over 6 Hours, Intravenous, ONCE, 1 dose, On Sun05/29/25 at 0900 $ New Bag/Syringe 05/29/2025 10:21 AM CDT 30 mmol 43.33 mL/hr documented in this encounter Active and Recently Administered Medications Times are shown in CDT. Scheduled Medication Order 05/29/2025 05/30/2025 05/31/2025 0.9% NaCl injection 3 mL(Linked Group 1) 3 mL, Intracatheter, EVERY 8 HOURS, First dose on Faby 05/28/25 at 0600, Until Discontinued, Flush peripheral IV catheter with 3 mL of normal saline every 8 hours. 0630 (Not Administered - Provider: Lucia Rosario RN - Reason: Patient sleeping)1325 ($ Given - Provider: Jia Cisneros RN)2155 ($ Given - Provider: Yaquelin Melgoza RN) 06 ($ Given - Provider: Yaquelin Melgoza RN)162 (Not Administered - Provider: Ene Fournier RN - Reason: Other)2054 ($ Given - Provider: Yaquelin Melgoza RN) 06 ($ Given - Provider: Yaquelin Melgoza RN) acyclovir (Zovirax) capsule 400 mg 400 mg, Oral, 2 TIMES DAILY, First dose on Sun05/28/25 at 0900, Until Discontinued, Indication for anti-infective therapy: Chronic prophylaxis 811 ($ Given - Provider: Jia Cisneros RN)2044 ($ Given - Provider: Yaquelin Melgoza RN) 920 ($ Given - Provider: Ene Fournier RN)2052 ($ Given - Provider: Yaquelin Melgoza RN) 09 ($ Given - Provider: Tisha Hodge, LOLI) apixaban (Eliquis) tablet 5 mg 5 mg, Oral, 2 TIMES DAILY, First dose on Sun05/28/25 at 0900, Until Discontinued 812 ($ Given - Provider: Jia Cisneros RN)2047 ($ Given - Provider: Yaquelin Melgoza RN) 09 ($ Given - Provider: Ene Fournier RN)2052 ($ Given - Provider: Yaquelin Melgoza RN) 0903 ($ Given - Provider: Tisha Hodge, LOLI) carvedilol (Coreg) tablet 12.5 mg 12.5 mg, Oral, 2 TIMES DAILY WITH MEALS, First dose on Sun05/28/25 at 0800, Until Discontinued, Take with food 812 ($ Given - Provider: Jia Cisneros RN)1710 ($ Given - Provider: Jia Cisneros RN) 920 ($ Given - Provider: Ene Fournier RN)1711 ($ Given - Provider: Ene Fournier RN) 09 ($ Given - Provider: Tisha Hodge RN) doxycycline monohydrate capsule 100 mg 100 mg, Oral, EVERY 12 HOURS, First dose on Sun05/28/25 at 0900, Until Discontinued, Administer at least 2 hours before or 4 hours after antacids, sucralfate, metals (eg, iron, zinc), multivitamin preparations, tube feeds Administer with 8 oz of water to prevent localized caustic injury. Flush thoroughly with water if administered by enteral tube., Indication for anti-infective therapy: Chronic prophylaxis 812 ($ Given - Provider: Jia Cisneros RN)2044 ($ Given - Provider: Yaquelin Melgoza RN) 09 ($ Given - Provider: Ene Fournier RN)2054 ($ Given - Provider: Yaquelin Melgoza RN) 09 ($ Given - Provider: Tisha Hodge, LOLI) famotidine (Pepcid) tablet 20 mg 20 mg, Oral, DAILY, First dose on Sun05/28/25 at 0900, Until Discontinued 811 ($ Given - Provider: Jia Cisneros RN) 09 ($ Given - Provider: Ene Fournier RN) 09 ($ Given - Provider: Tisha Hodge, LOLI) gabapentin (Neurontin) capsule 300 mg 300 mg, Oral, AT BEDTIME, First dose on Sun05/28/25 at 2100, Until Discontinued 2045 ($ Given - Provider: Yaquelin Melgoza RN) 2053 ($ Given - Provider: Yaquelin Melgoza RN) insulin aspart (NovoLOG) pen 0-6 Units 0-6 Units, Subcutaneous, EVERY 6 HOURS, First dose on Sun05/28/25 at 0700, Until Discontinued, Low Dose: Correction Insulin BG (mg/dL) Corrective Action LESS than 70 follow Hypoglycemic guidelines 70-180 NO Correction insulin 181-220 GIVE 2 units of insulin 221-260 GIVE 3 units of insulin 261-300 GIVE 4 units of insulin 301-350 GIVE 5 units of insulin Greater than 350 GIVE 6 units of insulin and notify physician DO NOT HOLD if Patient is NPO. If patient has orders for Mealtime insulin combine and give at same time. . WASTE DISPOSAL INSTRUCTIONS: Black Bin Disposal required. 0059 (Not Administered - Provider: Lucia Rosario RN - Reason: Other)0630 (Not Administered - Provider: Lucia Rosario RN - Reason: Other - Comment: bs 162)1156 (Not Administered - Provider: iJa Cisneros RN - Reason: Per Administration Instructions)1624 (Not Administered - Provider: Jia Cisneros RN - Reason: Per Administration Instructions) 0201 (Not Administered - Provider: Yaquelin Melgoza RN - Reason: Per Administration Instructions - Comment: B)0640 (Not Administered - Provider: Yaquelin Melgoza RN - Reason: Per Administration Instructions - Comment: B)1417 (Not Administered - Provider: Ene Fournier RN - Reason: Per Administration Instructions)1829 (Not Administered - Provider: Ene Fournier RN - Reason: Per Administration Instructions) 0038 (Not Administered - Provider: Yauqelin Melgoza RN - Reason: Per Administration Instructions - Comment: B)0614 (Not Administered - Provider: Yaquelin Melgoza RN - Reason: Per Administration Instructions - Comment: BG 98) lenalidomide (Revlimid) capsule 10 mg 10 mg, Oral, DAILY, First dose on Sun05/28/25 at 0900, Until Discontinued, Do not break, crush or chew capsules. . WASTE DISPOSAL INSTRUCTIONS: Black Bin Disposal required., On hold since Sun05/28/2025 at 0626 until manually unheld 0900 (Dose Held) 0900 (Dose Held) 0900 (Dose Held)1025 (Unheld by Provider - Provider: Generic, Auto Release) lidocaine (Lidoderm) 5 % patch 2 patch 2 patch, Administer over 12 Hours, DAILY, First dose on Sun05/28/25 at 0900, Until Discontinued 811 ($ Applied - Provider: Jia Cisneros RN)2048 (Removed - Provider: Yaquelin Melgoza RN) 921 ($ Applied - Provider: Ene Fournier RN)2053 (Removed - Provider: Yaquelin Melgoza RN) 09 (Not Administered - Provider: Tisha Hodge RN - Reason: Refused-Patient) loratadine (Claritin) tablet 10 mg 10 mg, Oral, DAILY, First dose on Sun05/28/25 at 0900, Until Discontinued 08 ($ Given - Provider: Jia Cisneros RN) 0921 ($ Given - Provider: Ene Fournier RN) 0903 ($ Given - Provider: Tisha Hodge RN) losartan (Cozaar) tablet 100 mg 100 mg, Oral, DAILY, First dose on Sun05/28/25 at 0900, Until Discontinued 899 (Dose Held)161 (Unheld by Provider - Provider: Ирина Alamo MD) 09 ($ Given - Provider: Ene Fournier RN) 09 ($ Given - Provider: Tisha Hodge RN) methylPREDNISolone (Medrol) tablet 12 mg (COMPLETED)(Linked Group 2) 12 mg, Oral, DAILY WITH BREAKFAST, 1 dose, First dose on Sun05/31/25 at 0800 0902 ($ Given - Provider: Tisha Hodge RN) methylPREDNISolone (Medrol) tablet 16 mg (COMPLETED)(Linked Group 2) 16 mg, Oral, DAILY WITH BREAKFAST, 1 dose, First dose on Sun05/30/25 at 0800 0921 ($ Given - Provider: Ene Fournier RN) methylPREDNISolone (Medrol) tablet 20 mg (COMPLETED)(Linked Group 2) 20 mg, Oral, DAILY WITH BREAKFAST, 1 dose, First dose on Sun05/29/25 at 0800 0812 ($ Given - Provider: Jia Cisneros RN) methylPREDNISolone (Medrol) tablet 4 mg(Linked Group 2) 4 mg, Oral, DAILY WITH BREAKFAST, 1 dose, First dose on Sun06/02/25 at 0800 methylPREDNISolone (Medrol) tablet 8 mg(Linked Group 2) 8 mg, Oral, DAILY WITH BREAKFAST, 1 dose, First dose on Sun06/01/25 at 0800 mirtazapine (Remeron) tablet 15 mg 15 mg, Oral, AT BEDTIME, First dose on Sun05/28/25 at 2100, Until Discontinued 2047 ($ Given - Provider: Yaquelin Melgoza RN) 2052 ($ Given - Provider: Yaquelin Melgoza RN) montelukast (Singulair) tablet 10 mg 10 mg, Oral, AT BEDTIME, First dose on Sun05/28/25 at 2100, Until Discontinued 2045 ($ Given - Provider: Yaquelin Melgoza, RN) 2053 ($ Given - Provider: Yaquelin Melgoza, LOLI) oxyCODONE CR 12hr (OxyCONTIN) tablet 20 mg 20 mg, Oral, EVERY 12 HOURS, First dose on Sun05/28/25 at 0900, Until Discontinued, Do not crush, chew, or cut in half. 812 ($ Given - Provider: Jia Cisneros RN)2050 ($ Given - Provider: Yaquelin Melgoza RN) 920 ($ Given - Provider: Ene Fournier, RN)2052 ($ Given - Provider: Yaquelin Melgoza, LOLI) 902 ($ Given - Provider: Tisha Hodge, LOLI) polyethylene glycol 3350 (Miralax) packet 17 g 17 g, Oral, DAILY, First dose on Sun05/28/25 at 0900, Until Discontinued, 17 g dose: mix in 8 ounces of water, juice, soda, coffee or tea prior to administration. For bowel prep check for other instructions. 811 ($ Given - Provider: Jia Cisneros RN) 920 ($ Given - Provider: Ene Fournier, LOLI) 904 (Not Administered - Provider: Tisha Hodge, LOLI - Reason: Refused-Patient) senna (Senokot) tablet 8.6 mg 8.6 mg, Oral, 2 TIMES DAILY, First dose on Sun05/28/25 at 0900, Until Discontinued 812 ($ Given - Provider: Jia Cisneros RN)2045 ($ Given - Provider: Yaquelin Melgoza RN) 920 ($ Given - Provider: Ene Fournier RN)2053 ($ Given - Provider: Yaquelin Melgoza, LOLI) 09 ($ Given - Provider: Tisha Hodge, LOLI) sertraline (Zoloft) tablet 50 mg 50 mg, Oral, DAILY, First dose on Sun05/28/25 at 0900, Until Discontinued, Avoid concurrent administration with grapefruit juice 812 ($ Given - Provider: Jia Cisneros RN) 920 ($ Given - Provider: Ene Fournier, LOLI) 902 ($ Given - Provider: Tisha Hodge, LOLI) sodium phosphate 30 mmol in 260 mL bolus (COMPLETED) 30 mmol, at 43.33 mL/hr, Administer over 6 Hours, Intravenous, ONCE, 1 dose, On Sun05/29/25 at 0900 1021 ($ New Bag/Syringe - Provider: Jia Cisneros, RN)1524 (Stopped - Provider: Jia Cisneros RN) PRN Medication Order 05/29/2025 05/30/2025 05/31/2025 0.9% NaCl injection 1-10 mL(Linked Group 1) 1-10 mL, Intracatheter, PRN, Other, peripheral line flush, Starting on Fab[place] 05/28/25 at 0404, Until 05/31/25 at 1025, Flush peripheral IV catheter with 1-10 mL of normal saline before and after medications and prn to clear blood from the line or to verify patency. cyclobenzaprine (Flexeril) tablet 10 mg 10 mg, Oral, 2 TIMES DAILY PRN, Muscle Spasms, Starting on Faby 05/28/25 at 0615, Until 05/31/25 at 1025 dextrose IV 12.5 g(Linked Group 3) 12.5 g, Intravenous, PRN, Other, Bedside Glucose less than 70 mg/dL -If NOT able to eat and/or NPO and with IV Access, Starting on Faby 05/28/25 at 0626, Until Sun05/31/25 at 1025, If NOT able to eat and/or NPO and with IV Access: For Bedside Glucose 54-69 mg/dL give 12.5 g Dextrose IV STAT For Bedside Glucose LESS than 54 mg/dl verify with a second Bedside Glucose (from a different site) and give 25 g Dextrose IV STAT Re-check and Re-treat blood glucose EVERY , 10-25 minutes until blood glucose GREATER than or equal to 80 mg/dl. NOTIFY PROVIDER OF HYPOGLYCEMIC EVENT. dextrose IV 25 g(Linked Group 3) 25 g, Intravenous, PRN, Other, Bedside Glucose less than 70 mg/dL -If NOT able to eat and/or NPO and with IV Access, Starting on Faby 05/28/25 at 0626, Until 05/31/25 at 1025, If NOT able to eat and/or NPO and with IV Access: For Bedside Glucose LESS than 54 mg/dl verify with a second Bedside Glucose (from a different site) and give 25 g Dextrose IV STAT Re-check and Re-treat blood glucose EVERY - 10-25 minutes until blood glucose GREATER than or equal to 80 mg/dl. - If repeat bedside glucose 54-79 give 12.5 g Dextrose IV STAT NOTIFY PROVIDER OF HYPOGLYCEMIC EVENT. glucagon (Glucagen) injection 1 mg(Linked Group 3) 1 mg, Subcutaneous, PRN, Bedside Glucose less than 70 mg/dL - If NOT able to eat and/or NPO and withOUT IV Access, Starting on [facility] 05/28/25 at 0626, Until [place] 05/31/25 at 1025, If NOT able to eat and/or NPO and NO IV Access: For Bedside glucose 54-69 mg/dL - Give 1 mg subcutaneous For Bedside Glucose LESS than 54 mg/dl - verify with a second bedside glucose (from a different site) - Give 1 mg subcutaneous Re-check and Re-treat blood glucose EVERY 10-25 minutes until blood glucose GREATER than or equal to 80 mg/dl. NOTIFY PROVIDER OF HYPOGLYCEMIC EVENT. Reconstitute vial with 1 mL of sterile water for injection for a final concentration of 1 mg/mL; shake vial gently; use immediately and discard unused portion glucose (Diabetic Use) oral gel Oral, PRN, Other, Bedside Glucose less than 70 mg/dL, Starting on [place] 05/28/25 at 0626, Until 05/31/25 at 1025, If able to take oral medications: For Bedside Glucose 54 - 69 mg/dL Give 15 grams of oral carbohydrates - 1 glucose gel (see MAR) If patient refuses glucose gel, then offer: - 4 ounces of fruit juice OR - 4 ounces non-diet soda OR - 8 ounces of fat-free milk For Bedside Glucose LESS than 54 mg/dL verify with a second Bedside Glucose (from a different site) - If pt is symptomatic, do not delay treatment - If accuracy of the POC glucose is in question, confirm glucose with aSTAT laboratory test Give 30 grams of oral carbohydrates - 2 glucose gels (see MAR) If patient refuses glucose gel, then offer: - 8 ounces of fruit juice OR - 8 ounces non-diet soda OR - 16 ounces of fat-free milk Re-check and Re-treat blood glucose EVERY 10-25 minutes until blood glucose GREATER than or equal to 80 mg/dl. - If on recheck, bedside glucose 54-79 mg/dL - Give 15 grams of oral carbohydrates (see above for choices) NOTIFY PROVIDER OF HYPOGLYCEMIC EVENT. HYDROmorphone (Dilaudid) injection 0.4 mg 0.4 mg, Intravenous, EVERY 3 HOURS PRN, Severe Pain, Starting on Faby 05/28/25 at 0640, Until 05/31/25 at 1025, Patient preference for lesser PRN pain meds [...] first unless patient cannot tolerate oral intake 1623 ($ Given - Provider: Ellie Serrano RN)2156 ($ Given - Provider: Yaquelin Melgoza, LOLI) 1712 ($ Given - Provider: Ene Fournier, RN) oxyCODONE (immediate release) (Roxicodone) tablet 5 mg 5 mg, Oral, EVERY 4 HOURS PRN, Moderate Pain, Starting on Faby 05/28/25 at 0640, Until 05/31/25 at 1025, Patient preference for lesser PRN pain meds [...] first unless patient cannot tolerate oral intake 1325 ($ Given - Provider: Jia Cisneros RN) 1712 ($ Given - Provider: Ene Fournier, RN) Linked Groups Order Group 1: SALINE LOCK, INSERT AND MAINTAIN (CANCELED) Routine, CONTINUOUS, Starting on Faby 05/28/25 at 0415, Until Specified, New collection And 0.9% NaCl injection 3 mLJump to med 3 mL, Intracatheter, EVERY 8 HOURS, First dose on Faby 05/28/25 at 0600, Until Discontinued, Flush peripheral IV catheter with 3 mL of normal saline every 8 hours. And 0.9% NaCl injection 1-10 mLJump to med 1-10 mL, Intracatheter, PRN, Other, peripheral line flush, Starting on Sun05/28/25 at 0404, Until Sun05/31/25 at 1025, Flush peripheral IV catheter with 1-10 mL of normal saline before and after medications and prn to clear blood from the line or to verify patency. Group 2: methylPREDNISolone (Medrol) tablet 24 mg (COMPLETED) 24 mg, Oral, DAILY WITH BREAKFAST, 1 dose, First dose on Sun05/28/25 at 1900 Followed by methylPREDNISolone (Medrol) tablet 20 mg (COMPLETED)Jump to med 20 mg, Oral, DAILY WITH BREAKFAST, 1 dose, First dose on Sun05/29/25 at 0800 Followed by methylPREDNISolone (Medrol) tablet 16 mg (COMPLETED)Jump to med 16 mg, Oral, DAILY WITH BREAKFAST, 1 dose, First dose on Sun05/30/25 at 0800 Followed by methylPREDNISolone (Medrol) tablet 12 mg (COMPLETED)Jump to med 12 mg, Oral, DAILY WITH BREAKFAST, 1 dose, First dose on Sun05/31/25 at 0800 Followed by methylPREDNISolone (Medrol) tablet 8 mgJump to med 8 mg, Oral, DAILY WITH BREAKFAST, 1 dose, First dose on Sun06/01/25 at 0800 Followed by methylPREDNISolone (Medrol) tablet 4 mgJump to med 4 mg, Oral, DAILY WITH BREAKFAST, 1 dose, First dose on Sun06/02/25 at 0800 Group 3: dextrose IV 12.5 gJump to med 12.5 g, Intravenous, PRN, Other, Bedside Glucose less than 70 mg/dL -If NOT able to eat and/or NPO and with IV Access, Starting on Sun05/28/25 at 0626, Until Sun05/31/25 at 1025, If NOT able to eat and/or NPO and with IV Access: For Bedside Glucose 54-69 mg/dL give 12.5 g Dextrose IV STAT For Bedside Glucose LESS than 54 mg/dl verify with a second Bedside Glucose (from a different site) and give 25 g Dextrose IV STAT Re-check and Re-treat blood glucose EVERY , 10-25 minutes until blood glucose GREATER than or equal to 80 mg/dl. NOTIFY PROVIDER OF HYPOGLYCEMIC EVENT. Or dextrose IV 25 gJump to med 25 g, Intravenous, PRN, Other, Bedside Glucose less than 70 mg/dL -If NOT able to eat and/or NPO and with IV Access, Starting on Faby 05/28/25 at 0626, Until 05/31/25 at 1025, If NOT able to eat and/or NPO and with IV Access: For Bedside Glucose LESS than 54 mg/dl verify with a second Bedside Glucose (from a different site) and give 25 g Dextrose IV STAT Re-check and Re-treat blood glucose EVERY - 10-25 minutes until blood glucose GREATER than or equal to 80 mg/dl. - If repeat bedside glucose 54- 79 give 12.5 g Dextrose IV STAT NOTIFY PROVIDER OF HYPOGLYCEMIC EVENT. Or glucagon (Glucagen) injection 1 mgJump to med 1 mg, Subcutaneous, PRN, Bedside Glucose less than 70 mg/dL - If NOT able to eat and/or NPO and withOUT IV Access, Starting on Faby 05/28/25 at 0626, Until 05/31/25 at 1025, If NOT able to eat and/or NPO and NO IV Access: For Bedside glucose 54- 69 mg/dL - Give 1 mg subcutaneous For Bedside Glucose LESS than 54 mg/dl - verify with a second bedside glucose (from a different site) - Give 1 mg subcutaneous Re-check and Re-treat blood glucose EVERY 10-25 minutes until blood glucose GREATER than or equal to 80 mg/dl. NOTIFY PROVIDER OF HYPOGLYCEMIC EVENT. 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
--- OUTSIDE RECORDS SUMMARY | 2025-06-01 09:06 | XMS_ITS ---
Author Organization [facility] Address [address] [place] [address] Care Team Providers Care Turpentine Farmer Name Role Phone Matthew Sorenson Primary Care Provider [phone] Active Problems Problem Noted Date Diagnosed Date Multiple myeloma, remission status unspecified 0 05/28/2025 Assessment & Plan (05/31/2025 9:19 AM CDT): - Multiple spinal surgeries: kyphoplasty, instrumented fusion and laminectomy - Now with worsening back pain and stenosis on CT - Patient previously on Meenu-VRD and was slated for auto stem cell transplant however d/t cirrhosis they were switched to Revlimid daily - takes [...] TID -Laxatives while on opioids for constipation. Assessment & Plan (05/30/2025 7:17 AM CDT): - Multiple spinal surgeries: kyphoplasty, instrumented fusion and laminectomy - Now with worsening back pain and stenosis on CT - Patient previously on Meenu-VRD and was slated for auto stem cell transplant however d/t cirrhosis they were switched to Revlimid daily - takes [...] TID -Laxatives while on opioids for constipation. Assessment & Plan (05/29/2025 4:23 PM CDT): - Multiple spinal surgeries: kyphoplasty, instrumented fusion and laminectomy - Now with worsening back pain and stenosis on CT - Patient previously on Meenu-VRD and was slated for auto stem cell transplant however d/t cirrhosis they were switched to Revlimid daily - takes [...] TID -Laxatives while on opioids for constipation. Assessment & Plan (05/28/2025 3:11 PM CDT): - Multiple spinal surgeries: kyphoplasty, instrumented fusion and laminectomy - Now with worsening back pain and stenosis on CT - Patient previously on Meenu-VRD and was slated for auto stem cell transplant however d/t cirrhosis they were switched to Revlimid daily - takes [...] BID, 5mg oxycodone PRN, dilaudid 0.4 PRN, Assessment & Plan (05/28/2025 7:56 AM CDT): - Multiple spinal surgeries: kyphoplasty, instrumented fusion and laminectomy - Now with worsening back pain and stenosis on CT - Patient previously on Meenu-VRD and was slated for auto stem cell transplant however d/t cirrhosis they were switched to Revlimid daily - takes [...] BID, 5mg oxycodone PRN, dilaudid 0.4 PRN, Acute midline thoracic back pain 05/28/2025 Assessment & Plan (05/31/2025 9:19 AM CDT): - Multiple spinal surgeries: kyphoplasty, instrumented fusion and laminectomy - Now with worsening back pain and stenosis on CT - Patient previously on Meenu-VRD and was slated for auto stem cell transplant however d/t cirrhosis they were switched to Revlimid daily - takes [...] TID -Laxatives while on opioids for constipation. Assessment & Plan (05/30/2025 7:17 AM CDT): - Multiple spinal surgeries: kyphoplasty, instrumented fusion and laminectomy - Now with worsening back pain and stenosis on CT - Patient previously on Meenu-VRD and was slated for auto stem cell transplant however d/t cirrhosis they were switched to Revlimid daily - takes [...] TID -Laxatives while on opioids for constipation. Assessment & Plan (05/29/2025 4:23 PM CDT): - Multiple spinal surgeries: kyphoplasty, instrumented fusion and laminectomy - Now with worsening back pain and stenosis on CT - Patient previously on Meenu-VRD and was slated for auto stem cell transplant however d/t cirrhosis they were switched to Revlimid daily - takes [...] TID -Laxatives while on opioids for constipation. Assessment & Plan (05/28/2025 3:11 PM CDT): - Multiple spinal surgeries: kyphoplasty, instrumented fusion and laminectomy - Now with worsening back pain and stenosis on CT - Patient previously on Meenu-VRD and was slated for auto stem cell transplant however d/t cirrhosis they were switched to Revlimid daily - takes [...] BID, 5mg oxycodone PRN, dilaudid 0.4 PRN, Assessment & Plan (05/28/2025 7:56 AM CDT): - Multiple spinal surgeries: kyphoplasty, instrumented fusion and laminectomy - Now with worsening back pain and stenosis on CT - Patient previously on Meenu-VRD and was slated for auto stem cell transplant however d/t cirrhosis they were switched to Revlimid daily - takes [...] BID, 5mg oxycodone PRN, dilaudid 0.4 PRN, Acute midline low back pain, unspecified whether sciatica present 05/28/2025 Assessment & Plan (05/31/2025 9:20 AM CDT): - Multiple spinal surgeries: kyphoplasty, instrumented fusion and laminectomy - Now with worsening back pain and stenosis on CT - Patient previously on Meenu-VRD and was slated for auto stem cell transplant however d/t cirrhosis they were switched to Revlimid daily - takes [...] TID -Laxatives while on opioids for constipation. Assessment & Plan (05/30/2025 7:17 AM CDT): - Multiple spinal surgeries: kyphoplasty, instrumented fusion and laminectomy - Now with worsening back pain and stenosis on CT - Patient previously on Meenu-VRD and was slated for auto stem cell transplant however d/t cirrhosis they were switched to Revlimid daily - takes [...] TID -Laxatives while on opioids for constipation. Assessment & Plan (05/29/2025 4:23 PM CDT): - Multiple spinal surgeries: kyphoplasty, instrumented fusion and laminectomy - Now with worsening back pain and stenosis on CT - Patient previously on Meenu-VRD and was slated for auto stem cell transplant however d/t cirrhosis they were switched to Revlimid daily - takes [...] TID -Laxatives while on opioids for constipation. Assessment & Plan (05/28/2025 3:11 PM CDT): - Multiple spinal surgeries: kyphoplasty, instrumented fusion and laminectomy - Now with worsening back pain and stenosis on CT - Patient previously on Meenu-VRD and was slated for auto stem cell transplant however d/t cirrhosis they were switched to Revlimid daily - takes [...] BID, 5mg oxycodone PRN, dilaudid 0.4 PRN, Assessment & Plan (05/28/2025 7:56 AM CDT): - Multiple spinal surgeries: kyphoplasty, instrumented fusion and laminectomy - Now with worsening back pain and stenosis on CT - Patient previously on Meenu-VRD and was slated for auto stem cell transplant however d/t cirrhosis they were switched to Revlimid daily - takes [...] BID, 5mg oxycodone PRN, dilaudid 0.4 PRN, 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 Assessment & Plan (05/31/2025 9:20 AM CDT): - complication of L3 kyphoplasty. Treated with antibiotics and currently on doxycycline for further ppx given presence of multiple hardware in the spine. - follows with ID outpatient Plan: - continue doxycycline ppx Assessment & Plan (05/30/2025 7:17 AM CDT): - complication of L3 kyphoplasty. Treated with antibiotics and currently on doxycycline for further ppx given presence of multiple hardware in the spine. - follows with ID outpatient Plan: - continue doxycycline ppx Assessment & Plan (05/29/2025 4:23 PM CDT): - complication of L3 kyphoplasty. Treated with antibiotics and currently on doxycycline for further ppx given presence of multiple hardware in the spine. - follows with ID outpatient Plan: - continue doxycycline ppx Assessment & Plan (05/28/2025 3:11 PM CDT): - complication of L3 kyphoplasty. Treated with antibiotics and currently on doxycycline for further ppx given presence of multiple hardware in the spine. - follows with ID outpatient Plan: - continue doxycycline Assessment & Plan (05/28/2025 7:56 AM CDT): - complication of L3 kyphoplasty. Treated with antibiotics and currently on doxycycline for further ppx given presence of multiple hardware in the spine. - follows with ID outpatient Plan: - continue doxycycline Chest wall abscess 09/24/2024 Multiple myeloma not having achieved remission 1 Tobacco use 07/26/2024 Acute back pain, unspecified back location, unspecified back pain laterality 07/23/2024 DM (diabetes mellitus) 06/28/2024 Assessment & Plan (05/31/2025 9:20 AM CDT): patient takes jardiance 25mg daily at home -ISS while inpatient Assessment & Plan (05/30/2025 7:17 AM CDT): patient takes jardiance 25mg daily at home -ISS while inpatient Assessment & Plan (05/29/2025 4:23 PM CDT): patient takes jardiance 25mg daily at home -ISS while inpatient Assessment & Plan (05/29/2025 4:19 PM CDT): - patient takes jardiance 25mg daily at home Plan: - started low dose SSI History of multiple myeloma 06/27/2024 Lytic bone lesions on xray 06/03/2024 Acute midline low back pain with left-sided scia alejandro 06/03/2024 HTN (hypertension) 06/03/2024 Assessment & Plan (05/31/2025 9:20 AM CDT): -Restart home Losartan Assessment & Plan (05/30/2025 7:17 AM CDT): -Restart home Losartan Assessment & Plan (05/29/2025 4:23 PM CDT): -Restart home Losartan Assessment & Plan (05/28/2025 3:11 PM CDT): Home: patient suggests they do not currently take any anti-HTN at home and that they were previously on coreg and losartan Plan: - Can restart home medications as needed Assessment & Plan (05/28/2025 7:56 AM CDT): Home: patient suggests they do not currently take any anti-HTN at home and that they were previously on coreg and losartan Plan: - Can restart home medications as needed Hepatitis C virus infection without hepatic coma 06/03/2024 Assessment & Plan (05/28/2025 3:11 PM CDT): - Cirrhosis likely 2/2 untreated Hepatitis C. Patient underwent Mavyret treatment via ID outpatient ID and was due for Hep C viral load to assess for clearance on 05/29/25. - denies any current IVDU Plan: - Obtain Hep C viral load (?) Assessment & Plan (05/28/2025 7:56 AM CDT): - Cirrhosis likely 2/2 untreated Hepatitis C. Patient underwent Mavyret treatment via ID outpatient ID and was due for Hep C viral load to assess for clearance on 05/29/25. - denies any current IVDU Plan: - Obtain Hep C viral load (?) Current Treatment and Therapy Plans MULTIPLE MYELOMA [...]
--- OUTSIDE RECORDS SUMMARY | 2025-06-01 09:06 | XMS_ITS | Encounter Summary ---
Author Organization [facility] Address [address] [place] [address] Care Team Providers Care Home Health Care Respiratory Therapist Name Role Phone Matthew Sorenson Primary Care Provider [phone] Jose Luis Brooks MD Unavailable [phone] Abelardo Presley MD Unavailable [phone] Bo Francisco MD Unavailable [phone] Angie Rogers MD Unavailable Katie GutierrezD Unavailable Unavaila Jaja Casillas RN Unavailable Unavailable Abimbola Waters SUPERVISOR HANGING AND TRIMMING-STATE COMPTROLLER Unavailable [phone] Perri Dexter SUPERVISOR HANGING AND TRIMMING-STATE COMPTROLLER Unavailable [phone] Marilyn Bennett RN Unavailable Unavailable Erasmo Roberson RN Unavailable Unavailable Alexandra Cota RN Unavailable Unavailable Alda Braswell Unavailable Unavailable Lucia Sharif LCSW Unavailable Unavailab le Reason for Visit * Reason Onset Date Comments MEDICATION REFILL 10/20/2024 Encounter Details Date Type Department Care Team (Late st Contact Info) Description 10/20/2024 Refill [facility] - Hematology/Oncology [address] [place] [address] Jose Luis Brooks MD [address] [facility] [place] [address] MEDICATION REFILL Social History Tobacco [...] Recorded Patient Health Questionnaire-2 Score 1 08/12/2024 [facility] of Occupat ional Health - Occupational Stress [...] place to sleep or slept in a senior care (including now)? No 06/04/2024 Housing Stability Vital Sign Answer Obed e Recorded In the last 12 months, was t here a time when you were not able to pay the mortgage or rent on time? Yes 10/24/2024 In the past 12 months, how m any times have you moved where you were living? 0 10/24/2024 At any time in the past 12 m [facility], were you homeless or living in a senior care (including now)? 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 Gender Identity Not on file Sexual Orientation [...] AM CDT Office Visit Transitional Care at [facility] [address] [place] [phone] 06/15/2025 2:30 PM CDT Appointment [facility] [address] [place] [address] Robb Wakefield MD [address] [place] [address] 06/15/2025 3:15 PM CDT Office Visit [facility] - Neurosurgery [address] [facility], [place] [address] Arya Rm MD [facility] 2L [place] [phone] documented as of this encounter Visit Diagnoses Not on filedocumented in this encounter Additional Health Concerns Infection Onset Date Last Indicated Resolved Time 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 CDIFF Under Investigation 01/13/2025 01/13/2025 7:19 PM CDT COVID-19 Under Investigation 01/13/2025 01/13/2025 01/13/2025 4:01 PM CDT COVID-19 Under Investigation 02/12/2025 02/12/2025 02/12/2025 4:07 PM CDT documented as of this encounter Care Teams Home Health Care Respiratory Therapist Relationship Specialty Start Date End Date Matthew Sorenson PA [address] [place] [address] PCP - General 02/02/22 Jose Luis Brooks MD [address] [place] [address] Dry Cell Assembly Supervisor/Oncologis t Hematology and Oncology 08/29/24 05/27/25 Abelardo Presley MD [address] [place] [address] Hematology and Oncology 08/29/24 03/04/25 Bo Francisco MD [address] [place] [phone] Hematology and Oncology 08/29/24 03/04/25 Angie Rogers MD [address] [place] [phone] Physician Hematology and Oncology 08/29/24 03/04/25 Katie Gutierrez, PharmD 08/29/24 03/04/25 Jaja Rayo, RN Registered Nurse 08/29/24 03/04/25 Abimbola Waters APRN-STATE COMPTROLLER [address] [place] [address] Nurse Practitioner Nurse Practitioner 08/29/24 03/04/25 Perri Dexter APRN-STATE COMPTROLLER [address] [place] [phone] Nurse Practitioner Nurse Practitioner 08/29/24 03/04/25 Marilyn Bennett, LOLI Coordinator 08/29/24 05/27/25 Erasmo Roebrson, RN Registered Nurse 08/29/24 03/04/25 Alexandra Cota, RN Registered Nurse 08/29/24 03/04/25 Alda Braswell 08/29/24 03/04/25 Lucia Sharif LCSW [place] 08/29/24 03/04/25 documented as of this encounter
--- OUTSIDE RECORDS SUMMARY | 2025-06-01 09:06 | XMS_ITS | Encounter Summary ---
Author Organization [facility] Address [address] [place] [address] Care Team Providers Care Group Underwriter Name Role Phone Matthew Sorenson Primary Care Provider [phone] Jose Luis Brooks MD Unavailable [phone] Abelardo Presley MD Unavailable [phone] Bo Francisco MD Unavailable [phone] Angie Rogers MD Unavailable Katie GutierrezD Unavailable Unavaila Jaja Casillas RN Unavailable Unavailable Abimbola Waters PIGMENT SUPPLIER-HOUSE OFFICER Unavailable [phone] Perri Dexter PIGMENT SUPPLIER-HOUSE OFFICER Unavailable [phone] Marilyn Bennett RN Unavailable Unavailable Erasmo Roberson RN Unavailable Unavailable Alexandra Cota RN Unavailable Unavailable Alda Braswell Unavailable Unavailable Lucia Sharif LCSW Unavailable Unavailab le Reason for Visit * Reason Onset Date Comments MEDICATION REFILL 10/20/2024 Encounter Details Date Type Department Care Team (Late st Contact Info) Description 10/20/2024 Refill [facility] [address] [place] [address] Gina Denton MD [address] [place] [address] MEDICATION REFILL Social History Tobacco Use Types [...] Patient Health Questionnaire-2 Score 1 08/12/2024 [facility] of Occupat ional Health - [...] any time in the past 12 m [facility], were you homeless or living in a nursing home (including now)? 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 - Neurosurgery [address] [facility], [place] [phone] Arya Rm MD [facility] [address] [place] [phone] documented as of this encounter Visit Diagnoses Not on filedocumented in this encounter Additional Health Concerns Infection Onset Date Last Indicated Resolved Time 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 CDIFF Under Investigation 01/13/2025 01/13/2025 7:19 PM CDT COVID-19 Under Investigation 01/13/2025 01/13/2025 01/13/2025 4:01 PM CDT COVID-19 Under Investigation 02/12/2025 02/12/2025 02/12/2025 4:07 PM CDT documented as of this encounter Care Teams Group Underwriter Relationship Specialty Start Date End Date Matthew Sorenson PA [address] [place] [address] PCP - General 02/02/22 Jose Luis Brooks MD [address] [place] [address] Pay Agent/Oncologis t Hematology and Oncology 08/29/24 05/27/25 Abelardo Presley MD [address] [place] [address] Hematology and Oncology 08/29/24 03/04/25 Bo Francisco MD [address] [place] [phone] Hematology and Oncology 08/29/24 03/04/25 Angie Rogers MD [address] [place] [phone] Physician Hematology and Oncology 08/29/24 03/04/25 Katie Gutierrez, PharmD 08/29/24 03/04/25 Jaja Rayo, RN Registered Nurse 08/29/24 03/04/25 Abimbola Waters APRN-HOUSE OFFICER [address] [place] [address] Nurse Practitioner Nurse Practitioner 08/29/24 03/04/25 Perri Dexter, PIGMENT SUPPLIER-HOUSE OFFICER [address] [place] [phone] Nurse Practitioner Nurse Practitioner 08/29/24 03/04/25 Marilyn Bennett, LOLI Coordinator 08/29/24 05/27/25 Erasmo Roberson, RN Registered Nurse 08/29/24 03/04/25 Alexandra Cota, RN Registered Nurse 08/29/24 03/04/25 Alda Braswell 08/29/24 03/04/25 Lucia Sharif LCSW Scientific Helper 08/29/24 03/04/25 documented as of this encounter
--- OUTSIDE RECORDS SUMMARY | 2025-06-01 09:06 | XMS_ITS | Clinical Summary ---
Author Organization [facility] Address [address] [address] Phone Care Team Providers Care Full Roll Inspector Name Role Phone Imanquentin Matthew Bebe RAWLS Primary Care Provider [phone] Social History Tobacco Use Types Packs/Day Years Used Date Smoking Tobacco: Never Assessed Sex and Gender Information Value Date Recorded Sex Assigned at Not on file Legal Sex Male 9:21 PM CDT Gender Identity Not on file Sexual Orientation Not on file Plan of Treatment Upcoming Encounters Date Type Department Care Team (Late st Contact Info) Description 06/16/2025 7:30 AM CDT [facility] [address] [place] [phone] Kenneth Wayne MD [address] [address] 06/16/2025 7:30 AM CDT - 06/16/2025 8:00 AM CDT [facility] [address] [place] [address] Kenneth Wayne MD [address] [address] COLONOSCOPY Scheduled Procedures Name Priority Associated Diagnoses [...] Insurance MEDICAID [employer] Care Teams Full Roll Inspector Relationship Specialty Start Date End Date Matthew Sorenson PAC [address] [place] [address] PCP - General Physician Printer'S Assistant 04/27/25
--- OUTSIDE RECORDS SUMMARY | 2025-06-01 09:06 | XMS_ITS | Encounter Summary ---
Author Organization [facility] Address [address] [facility] [place] [address] Care Team Providers Care Configuration Management Analyst Name Role Phone Matthew Sorenson Primary Care Provider [phone] Encounter Details Date Type Department Care Team (Latest Contact Info) Description 06/01/2025 Travel Social History Tobacco Use Types Packs/Day Years [...] Recorded Patient Health Questionnaire-2 Score 0 11/20/2024 [facility] of Occupat ional Health - Occupational Stress [...] any time in the past 12 m [facility], were you homeless or living in a longterm (including now)? 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 Gender Identity Not on file Sexual Orientation [...] AM CDT Office Visit Transitional Care at [facility] [address] [place] [address] 06/15/2025 2:30 PM CDT Appointment [facility] [address] [place] [address] Robb Wakefield MD [address] [place] [address] 06/15/2025 3:15 PM CDT Office Visit [facility] - Neurosurgery [address] [facility], [place] [address] Arya Rm MD [address] [place] [address] [address] [place] [address] documented as of this encounter Visit Diagnoses Not on filedocumented in this encounter Additional Health Concerns Infection Onset Date Last Indicated Resolved Time 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 documented as of this encounter Care Teams Configuration Management Analyst Relationship Specialty Start Date End Date Matthew Sorenson PA [address] [place] [address] PCP - General 02/02/22 documented as of this encounter
--- OUTSIDE RECORDS SUMMARY | 2025-06-01 09:06 | XMS_ITS | Referral Summary ---
Author Organization [facility] Address [address] [place] [address] Care Team Providers Care Industrial Editor Name Role Phone Matthew Sorenson Primary Care Provider [phone] Matthew Sorenson Unavailable [phone] Encounters Date Type Department Care Team Description 04/06/2025 Telephone [facility] Bone Marrow Transplant [address] [place] [phone] Agnes Hawkins RN 04/06/2025 7:[address] [facility] Cancer Hunters - Lab Collection [address] [place] [address] 113[address] Multiple myeloma not having achieved remission (HCC) 04/06/2025 8:00 AM CDT Lab [facility] Oncology Lab [address] [place] [phone] 04/06/2025 9:00 AM CDT Office Visit [facility] Bone Marrow Transplant [address] [place] [phone] David Santiago MD Multiple myeloma, remission status unspecified (HCC) 03/25/2025 Orders Only [facility] Bone Marrow Transplant [address] [place] [phone] David Santiago MD Multiple myeloma not having [...] on file 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 Results from different manufacturers or methods may not be comparable. Serial testing should be performed using the same methods and instrumentation. Current Interpretive Data was last revised on 2023. [place] free light chain [facility] 1.45 0.33 - 1.94 mg/dL USMAN [facility] Comment: Interpretive Data The Binding Site FreeLite assay procedure was used. Results from different manufacturers or methods may not be comparable. Serial testing should be performed using the same methods and instrumentation. Current Interpretive Data was last revised on 2023. Lambda free light chain [facility] 1.09 0.57 - 2.63 mg/dL [facility] Comment: Interpretive Data The Binding Site FreeLite assay procedure was used. Results from different manufacturers or methods may not be comparable. Serial testing should be performed using the same methods and instrumentation. Current Interpretive Data was last revised on 2023. Blood 04/06/2025 8:04 AM CDT 04/06/2025 9:12 AM CDT us David Santiago MD LAB BLOOD ORDERABLES Final Resul t [facility] [place] [address] * (ABNORMAL) CBC with auto differential (04/06/2025 8:04 AM CDT) WBC 7.11 3.80 - 9.90 K/cumm Comment:Testing performed by : [facility] Heme Lab, [address] [place] [address] Hgb 16.0 13.0 - 17.5 g/dL CERNER BJ Comment:Testing performed by : [facility] Heme Lab, [address] [place], [place] [phone] Hct 47.8 38.9 - 50.3 % CERNER BJ Comment:Testing performed by : [facility] Heme [facility], [address] [place], [place] [phone] Plt 257 150 - 400 K/cumm CERNER BJ Comment:Testing performed by : [facility] Heme [facility], [address] [place] [address] MPV 9.1 6.8 - 10.4 fL CERNER BJ Comment:Testing performed by : [facility] Heme [facility], [address] [place], [place] [phone] RBC 5.72 4.30 - 5.80 M/cumm CERNER BJ Comment:Testing performed by : [facility] Heme [facility], [address] [place], [place] [phone] MCV 83.6 81.3 - 96.4 fL CERNER BJ Comment:Testing performed by : [facility] Heme [facility], [address] [place] [address] MCH 28.0 27.1 - 33.3 pg CERNER BJ Comment:Testing performed by : [facility] Heme [facility], [address] [place] [address] MCHC 33.5 32.3 - 35.7 g/dL CERNER BJ Comment:Testing performed by : [facility] Heme [facility], [address] [place] [address] RDW CV 15.1(H) 11.1 - 14.9 % CERNER BJ Comment:Testing performed by : [facility] Heme Lab, [address] [place] [address] NRBC abs 0.00 0.00 - 0.01 K/cumm CERNER BJ Comment:Testing performed by : [facility] Heme Lab, [address] [place] [address] Blood 04/06/2025 8:04 AM CDT 04/06/2025 8:09 AM CDT us David Santiago MD LAB BLOOD ORDERABLES Edited Resu lt - Final USMAN PHILLIPS [facility] [place] [address] * (ABNORMAL) Manual Differential (04/06/2025 8:04 AM CDT) Cells Counted 200 Comment:Testing performed by : [facility] Heme Lab, [address] [place] [phone] Neutrophil abs 2.84 1.50 - 6.50 K/cumm USMAN PHILLIPS Comment:Testing performed by : [facility] Heme [facility], [address] [place] [phone] Lymphocyte abs 2.56 0.80 - 3.30 K/cumm USMAN PHILLIPS Comment:Testing performed by : [facility] Heme [facility], [address] [place] [phone] Monocyte abs 0.71 0.20 - 0.80 K/cumm USMAN PHILLIPS Comment:Testing performed by : [facility] Heme [facility], [address] [place] [phone] Eosinophil abs 0.50 0.00 - 0.50 K/cumm USMAN PHILLIPS Comment:Testing performed by : [facility] Heme Lab, [address] [place] [phone] Basophil abs 0.21(H) 0.00 - 0.10 K/cumm USMAN PHILLIPS Comment:Testing performed by : [facility] Heme Lab, [address] [place] [phone] Neutrophil pct 40.0 % CERDOMINIQUE PHILLIPS Comment: Interpretive Data Percent cell count reference ranges are not reported, since discordance with absolute values may lead to misinterpretation of CBC data. Current Interpretive Data was last revised on 2018. Testing performed by: [facility] Heme [facility], [address] [place] [phone] Lymphocyte pct 36.0 % USMAN PHILLIPS Comment: Interpretive Data Percent cell count reference ranges are not reported, since discordance with absolute values may lead to misinterpretation of CBC data. Current Interpretive Data was last revised on 2018. Testing performed by: [facility] Heme Lab, [address] [place] [phone] Monocyte pct 10.0 % [facility] Comment: Interpretive Data Percent cell count reference ranges are not reported, since discordance with absolute values may lead to misinterpretation of CBC data. Current Interpretive Data was last revised on 2018. Testing performed by: [facility] Heme Lab, [address] [place] [address] Eosinophil pct 7.0 % [facility] Comment: Interpretive Data Percent cell count reference ranges are not reported, since discordance with absolute values may lead to misinterpretation of CBC data. Current Interpretive Data was last revised on 2018. Testing performed by: [facility] Heme [facility], [address] [place] [phone] Basophil pct 3.0 % [facility] Comment: Interpretive Data Percent cell count reference ranges are not reported, since discordance with absolute values may lead to misinterpretation of CBC data. Current Interpretive Data was last revised on 2018. Testing performed by: [facility], [address] [place] [phone] Myelocyte pct 1.0(H) 0.0 - 0.0 % CERNER [facility] Comment:Testing performed by : [facility], [address] [place] [phone] Variant lymph pct 5.0(H) 0.0 - 0.0 % C[facility]ER [facility] Comment:Testing performed by : [facility] Heme [facility], [address] [place] [phone] RBC morphology Normal [facility] Comment:Testing performed by : [facility], [address] [place] [phone] Platelet estimate Adequate [facility] Comment:Testing performed by : [facility], [address] [place] [phone] Blood 04/06/2025 8:04 AM CDT 04/06/2025 8:09 AM CDT us David Santiago MD LAB BLOOD ORDERABLES Final Resul t Performing Organization Address [facility] Co de Phone Number [facility] Department [place] [address] * Protein electrophoresis with reflex, serum with interpretation (04/06/2025 8:04 AM CDT) Protein, sr 6.8 6.2 - 8.2 g/dL Albumin 4.3 3.2 - 5.0 g/dL [facility] Alpha-1 globulin 0.3 0.2 - 0.4 g/dL [facility] Alpha-2 globulin 1.0 0.5 - 1.0 g/dL [facility] Beta-1 globulin 0.4 0.3 - 0.6 g/dL [facility] Beta-2 globulin 0.3 0.2 - 0.6 g/dL [facility] Gamma globulin 0.5 0.5 - 1.7 g/dL [facility] SPEP interp Please see comment [facility] Comment: No apparent monoclonal peak Reviewed and signed by Jonatan Astorga MD, PhD 04/07/2025 Blood 04/06/2025 8:04 AM CDT 04/06/2025 9:12 AM CDT us David Santiago MD LAB BLOOD ORDERABLES Final Resul t Performing Organization Address [facility] Co de Phone Number [facility] Department [place] [address] * eGFR (04/06/2025 7:04 AM CDT) eGFR [...] Final Resul t Performing Organization Address City/[facility] Co de Phone Number [facility] [place] [address] * Lactate dehydrogenase (LD) (04/06/2025 7:04 AM CDT) Lactate dehydrogenase (LDH) 142 100 - 250 Units/L Blood 04/06/2025 7:04 AM CDT 04/06/2025 8:10 AM CDT David Santiago MD LAB BLOOD ORDERABLES Final Resul t Performing Organization Address [facility] Co de Phone Number [facility] Department [place] [address] * (ABNORMAL) IgA (04/06/2025 7:04 AM CDT) Immunoglobulin A <50(L) 70 - 400 mg/dL Blood 04/06/2025 7:04 AM CDT 04/06/2025 8:31 AM CDT David Santiago MD LAB BLOOD ORDERABLES Final Resul t Performing Organization Address [facility] Co de Phone Number [facility] Department [place] [address] * (ABNORMAL) IgM (04/06/2025 7:04 AM CDT) Immunoglobulin M <25(L) 40 - 230 mg/dL Blood 04/06/2025 7:04 AM CDT 04/06/2025 8:31 AM CDT us David Santiago MD LAB BLOOD ORDERABLES Final Resul t Performing Organization Address City/State/[facility] [place] [address] * (ABNORMAL) IgG (04/06/2025 7:04 AM CDT) Immunoglobulin G 600(L) 700 - 1,600 mg/dL Blood 04/06/2025 7:04 AM CDT 04/06/2025 8:31 AM CDT us David Santiago MD LAB BLOOD ORDERABLES Final Resul t Performing Organization Address [facility] [place] [address] * (ABNORMAL) Beta 2 microglobulin, serum (04/06/2025 [...] Final Resul t Performing Organization Address City/[facility] Co de Phone Number [facility] [place] [address] * (ABNORMAL) Comprehensive metabolic panel (04/06/2025 7:04 AM CDT) Sodium 140 135 - 145 mmol/L Potassium, pl 3.9 3.3 - 4.9 mmol/L [facility] Chloride 106 97 - 110 mmol/L [facility] CO2 23 22 - 32 mmol/L [facility] Anion gap 11 2 - 15 mmol/L [facility] BUN 15 6 - 25 mg/dL [facility] Creatinine 0.81 0.80 - 1.30 mg/dL [facility] Glucose 169 70 - 199 mg/dL [facility] Comment: Interpretive Data Fasting glucose >/= [...] 2022. Calcium 9.6 8.5 - 10.3 mg/dL [facility] Bilirubin, total 0.2 0.1 - 1.2 mg/dL [facility] Protein, pl 7.1 6.5 - 8.5 g/dL [facility] Albumin 4.4 3.5 - 5.0 g/dL [facility] Alk phos 199(H) 40 - 130 Units/L [facility] ALT 36 7 - 55 Units/L [facility] AST 19 10 - 50 Units/L [facility] Blood 04/06/2025 7:04 AM CDT 04/06/2025 8:10 AM CDT us David Santiago MD LAB BLOOD ORDERABLES Final Resul t [facility] [place] [address] from Last 3 Months Insurance [facility] Care Teams Industrial Editor Relationship Specialty Start Date End Date Matthew Sorenson PA [address] [place] [address] PCP - General Family Practice 05/04/23 Matthew Sorenson PA [address] [place] [address] Family Practice 09/12/22
--- OUTSIDE RECORDS SUMMARY | 2025-06-01 09:07 | XMS_ITS | Encounter Summary ---
Author Organization [facility] Address [address] [facility] [address] Care Team Providers Care Pleater Hand Name Role Phone Matthew Sorenson Primary Care Provider [phone] Jose Luis Brooks MD Unavailable [phone] Abelardo Presley MD Unavailable [phone] Bo Francisco MD Unavailable [phone] Angie Rogers MD Unavailable Katie GutierrezD Unavailable Unavaila Jaja Casillas RN Unavailable Unavailable Abimbola Waters COMPLIANCE EXAMINER-COOK SOUP Unavailable [phone] Perri Dexter COMPLIANCE EXAMINER-COOK SOUP Unavailable Marilyn Bennett RN Unavailable Unavailable Erasmo Roberson RN Unavailable Unavailable Alexandra Cota RN Unavailable Unavailable Alda Braswell Unavailable Unavailable Lucia Sharif LCSW Unavailable Unavailab le Reason for Referral * (Routine) - Open Specialty Diagnoses / Procedures Referred By Contac t Referred To Contact Procedures Follow up with provider Juan Valencia MD [address] OF [place]STR[place] [address] Phone: tel: fax: Referral ID Status Reason Start Date Expiration Date Visits Re quested Visits Authorized [id number] Open 02/19/2025 02/19/2026 1 1 * Radiology Services (Routine) - Open Specialty Diagnoses / Procedures Referred By Contac t Referred To Contact Diagnoses Hepatitis C virus infection without hepatic coma, unspecified chronicity History of multiple myeloma Procedures CT US Guided Needle Placement IR Perc Liver Biopsy Juan Valencia MD [address] [facility] 2L DIV OF [place]STR[place] [address] Phone: tel: fax: [facility] [address] [place] [address] Phone: tel: Referral ID Status Reason Start Date Expiration Date Visits Re quested Visits Authorized [id number] Open 02/19/2025 02/19/2026 1 1 Reason for Visit * Auth/Cert (Routine) Specialty Diagnoses / Procedures Referred By Contac t Referred To Contact Diagnoses Chronic hepatitis C without hepatic coma (HCC) Transaminitis Chronic hepatitis C without hepatic coma (HCC) [B18.2] Transaminitis [R74.01] Procedures CT US GUIDED NEEDLE PLACEMENT BIOPSY LIVER (NEEDLE/PERCUTANEOUS) Referral ID Status Reason Start Date Expiration Date Visits Re quested Visits Authorized [id number] 1 1 Encounter Details Date Type Department Care Team (Latest Contact Info) Description 02/19/2025 11:37 AM CDT Hospital Encounter [facility] [address] [place] [phone] Juan Valencia MD [facility] [facility] 2L DIV OF [place]STR[place] [address] Interven Radiology Social History Tobacco Use Types [...] Recorded Patient Health Questionnaire-2 Score 0 11/20/2024 [facility] - [...] place to sleep or slept in a snf (including now)? No 06/04/2024 Housing Stability Vital [...] were you homeless or living in a snf (including now)? 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 Callum Guerrero MD Outside Plant Supervisor Vascular & Interventional Radiology 02/20/2025 5:30 AM documented in this encounter Miscellaneous Notes * Clinical References AVS - Richie Alejandro RN - 02/19/2025 1:22 PM CDT Images from the original note were not included. [id number] Liver Biopsy A liver biopsy is when [...] naproxen. ?? Medicines for heart conditions ?? Fzgc-cui-nmmilnx medicines ?? All prescription medicines ?? Illegal [...] belly Last Reviewed Date: 2023 00:00:00 ?? [id number] [employer]. All rights reserved. This information is not intended as a substitute for professional medical care. Always follow your healthcare professional's instructions. documented in this encounter Plan of Treatment Upcoming Encounters Date Type Department Care Team (Late st Contact Info) Description 06/05/2025 8:30 AM CDT Office Visit Transitional Care at [facility] [address] [place] [address] 06/15/2025 2:30 PM CDT Appointment [facility] MRI [address] [place] [phone] Robb Wakefield MD [address] [place] [address] 06/15/2025 3:15 PM CDT Office Visit [facility] - Neurosurgery [address] [facility], [place] [phone] Arya Rm MD [address] [place] [address] [place] [address] documented as of this encounter Procedures Procedure [...] evaluation, please review the evaluation forms in [facility]. For details on monitored clinical parameters during the intra-service sedation time, please review the procedure nurse documentation in [facility]. > Dictated by Seng Gaston MD (Mold Filler And Drainer) 02/19/2025 12:59 PM Callum Mondragon MD have [...] response to care. Intra-service sedation start time [id number] hours and end time was 1236 hours during which I was present. Total physician intra-service sedation time was 30 minutes. For details on pre moderate sedation and post moderate sedation patient evaluation, please review the evaluation forms in [facility]. For details on monitored clinical parameters during the intra-service sedation time, please review the procedure nurse documentation in [facility]. > Dictated by Seng Gaston MD (Mold Filler And Drainer) 02/19/2025 12:59 PM Callum Mondragon MD have personally reviewed and interpreted this examination/study. > Interpreting Provider: Callum Guerrero MD on 02/24/2025 5:33 PM Juan Valencia MD CT ORDERABLES Final Result * PATHOLOGY TISSUE (02/19/2025 12:34 PM CDT) Case Report Surgical Pathology Report Case: [id number] Authorizing Provider: Juan Valencia MD Collected: 02/19/2025 12:34 PM Ordering Location: [facility] Received: 02/19/2025 01:06 PM Pathologist: Sammi Escalante MD Specimen: Liver Needle Biopsy, liver bx 02/20/2025 3:50 PM CDT [facility] PATH[facility]Y LAB Final Diagnosis Liver, biopsy (A): - Chronic hepatitis with minimal-mild activity - Steatosis and lobular inflammation without ballooning - Cirrhosis, see comment 02/20/2025 3:50 PM CDT [facility] PATH[facility]Y [facility] at 1550 CDT Microscopic [...] 8 (steatosis-1, inflammation-1, ballooning-0). 02/20/2025 3:50 PM [facility] PATHOLOGY LAB Clinical History The patient is a 44-year-old man with history of hepatitis C infection and appearance of cirrhosis on diagnostic imaging. Operative procedure: Ultrasound-guided random core liver biopsy 02/20/2025 3:50 PM [facility] PATH[facility] Gross Description The requisition and specimen(s) are identified with the patient's name, Joselito Nguyen. Received in formalin, specimen A, are two baldwin-pink needle cores, 1.7 and 1.0 cm, both 0.1 cm diameter, submitted in toto in cassette A1. IKD 02/20/2025 3:50 PM [facility] Pathologist Location at [facility] 02/20/2025 3:50 PM CDT [facility] Disclaimer The performance characteristics of all immunohistochemical and indirect immunofluorescence stains (if any) cited in this report were determined by the Histopathology Laboratory of [facility]. Some of these tests were developed [...] attending (teaching) pathologist. 02/20/2025 3:50 PM CDT [facility] Collected By Balbir Rdz RN 3:50 PM CDT [facility] Embedded Images 02/20/2025 3:50 PM CDT [facility] Pathology/Cytolo gy NEEDLE BIOPSY OF LIVER / Unknown Collection / Unknown 02/19/2025 12:34 PM CDT 02/19/2025 1:06 PM CDT Comment:LIVER NEEDLE BIOPSY Juan Valencia MD LAB - PATHOLOGY/CYTOLOGY ORDER LISSETH Final Result [facility] PATH[facility] LAB [address] [place] [address], [facility] [phone] documented in this encounter Visit Diagnoses Diagnosis [...] documented as of this encounter Care Teams Pleater Hand Relationship Specialty Start Date End Date Matthew Sorenson PA [address] [place] [address] PCP - General 02/02/22 Jose Luis Brooks MD [address] [place], [place] [id number] Transmitter Chief/Oncologis t Hematology and Oncology 08/29/24 05/27/25 Abelardo Presley MD [address] [place] [address] Hematology and Oncology 08/29/24 03/04/25 Bo Francisco MD [address] [place] [phone] Hematology and Oncology 08/29/24 03/04/25 [place] [address] [place] [phone] Physician Hematology and Oncology 08/29/24 03/04/25 Katie Gutierrez, PharmD 08/29/24 03/04/25 Jaja Rayo, RN Registered Nurse 08/29/24 03/04/25 Abimbola Waters APRN-COOK SOUP [facility] [place] [phone] Nurse Practitioner Nurse Practitioner 08/29/24 03/04/25 Perri Dexter APRN-COOK SOUP [address] [place] [phone] Nurse Practitioner Nurse Practitioner 08/29/24 03/04/25 Marilyn Bennett, LOLI Coordinator 08/29/24 05/27/25 Erasmo Roberson, RN Registered Nurse 08/29/24 03/04/25 Alexandra Cota, RN Registered Nurse 08/29/24 03/04/25 Alda Braswell 08/29/24 03/04/25 Lucia Sharif LCSW Associate Pathologist 08/29/24 03/04/25 documented as of this encounter
--- OUTSIDE RECORDS SUMMARY | 2025-06-01 09:07 | XMS_ITS | Clinical Summary ---
Author Organization [facility] Address [address] [place] [address] Care Team Providers Care Parts Inspector Name Role Phone Matthew Sorenson Primary Care Provider [phone] Source Comments [facility],non-owned Affiliates and Associated Physician Practices is amultiple site organization consisting of ambulatory clinics and hospital sitesin [place], [place], [place] and [place]. This disclosure is being madepursuant to the Care Everywhere program and may not contain all information available regarding this patient. Last updated 18.[facility] Allergies Active Allergy Reactions Criticality Noted Date [...] 06/28/20 24 025 Active blood glucose test stripIndicatio ns:Acute post-operative [...] verio strips, Reported on 02/26/2025 Continuous Glucose Dairy Manufacturing Technologist (Dexcom G7 Dairy Manufacturing Technologist) SONIA as directed Act khari Continuous Glucose [...] Nausea/Vomiting 30 tablet 6 01/14/20 25 Active oxyCODONE CR 12hr (OxyCONTIN) [...] times daily 56 tablet 5 01/20/20 25 07/06/ 025 Active Acetaminophen Extra Strength 500 MG TABS TAKE 2 TABLETS (1,000 MG TOTAL) BY MOUTH EVERY 6 HOURS NEEDED FOR PAIN 12/18/19 25 Active carvedilol (Coreg) 12.5 MG tablet TAKE 1 TABLET TWICE A DAY BY ORAL ROUTE FOR 90 DAYS. 12/26/19 25 Active Jardiance 25 MG tablet Take 1 tablet every day by oral route for 90 days. 01/27/20 25 Active fexofenadine (Joceline) 180 MG tablet Take 1 (one) tablet by mouth once daily Activ e TRUEplus 5-Bevel Pen [place] 31G X 6 MM MISC USE TO INJECT INSULIN 3 TIMES DAILY 11/20/19 25 Active ondansetron (Zofran) 8 MG tablet Take 1 (one) tablet by mouth every 8 hours as needed Active lenalidomide (Revlimid) 10 MG capsuleIndicat ions:Multiple myeloma, remission status unspecified (HCC) Take 1 (one) capsule by mouth once daily for 28 days 28 capsule 02/28/20 25 Active acyclovir (Zovirax) 400 MG tablet Take 1 (one) tablet by mouth 2 times daily 60 tablet 5 03/02/20 25 Active methylPREDNISo lone (Medrol) 4 MG tablet Take 2 (two) tablets by mouth daily with breakfast for 1 day, THEN 1 (one) tablet daily with breakfast for 1 day. 3 tablet 06/01/20 25 025 Active polyethylene glycol 3350 (Miralax) 17 g packet Take 17 (seventeen) g by mouth once daily for 30 days 30 packet 06/01/20 25 025 Active ondansetron, disintegrating , (Zofran ODT) 8 MG tablet Take 1 (one) tablet by mouth every 8 hours Allow tablet to dissolve on the tongue 90 tablet 1 01/14/20 25 025 Disconti nued(Lis t Clean-Up ) amoxicillin (Amoxil) 875 MG tablet Take 1 tablet every 12 hours by oral route for 10 days. 01/27/20 25 025 Disconti nued(Lis t Clean-Up ) doxycycline hyclate (Vibramycin) 100 MG capsule Take 1 (one) capsule by mouth 01/20/20 25 025 Disconti nued(Lis t Clean-Up ) Active Problems Problem Noted Date Diagnosed Date [...] - Obtain Hep C viral load (?) Resolved Problems Problem Noted Date Diagnosed Date [...] Encounters Date Type Department Care Team Description 06/01/2025 Travel 05/28/2025 Travel 05/27/2025 11:33 PM CDT - 05/31/2025 9:25 AM CDT Hospital Encounter [facility] [address] [place] [address] Cristian Garcia MD [place], MD Ashu Umaña Joshua, MD Emergency Medicine Discharge Disposition: Home or Self Care 05/04/2025 Refill [facility] [address] [place] [phone] Perri Dexter APRN-DIANNE Refill Request 04/03/2025 Travel 03/26/2025 Refill [facility] [address] [place] [phone] Perri Dexter APRN-DIANNE Refill Request 03/24/2025 Refill [facility] [address] [place] [address] Jose Luis Brooks MD Refill Request 03/18/2025 Travel 03/02/2025 10:18 AM CDT - 03/02/2025 11:59 PM CDT Hospital Encounter [facility] [address] [place] [phone] Jose Luis Brooks MD Kunkle, Kelly, APRN-COMMERCIAL REAL ESTATE ATTORNEY Discharge Disposition: Home or Self Care from Last 3 Months Family History Medical [...] Recorded Patient Health Questionnaire-2 Score 0 11/20/2024 [facility] of Occupat ional [facility] - Occupational Stress Questionnaire Answer Date Recorded [...] any time in the past 12 m [facility], were you homeless or living in a senior care (including now)? No 11/23/2024 Sex and Gender Information Value Date Recorded Sex Assigned at Not on file Legal Sex Male 11:44 AM INTERNAL CONTROL ANALYST Gender Identity Not on file Sexual Orientation Not on file Last Filed Vital Signs Vital Sign Reading Time Taken Comments Blood Pressure 104/89 05/31/2025 9:06 AM CDT Pulse 73 05/31/2025 9:06 AM CDT Temperature 36.4 C (97.5 F) 05/31/2025 5:14 AM CDT Respiratory Rate 16 05/31/2025 9:06 AM CDT Oxygen Saturation 98% 05/31/2025 9:06 AM CDT Inhaled Oxygen Concentration 21% 02/19/2025 1 :30 PM CDT Weight 57.2 kg (126 lb 3.2 oz) 05/31/2025 5:14 A M CDT Height 182.9 cm (6') 05/27/2025 11:30 PM CDT Body Mass Index 17.12 05/27/2025 11:30 PM CDT Plan of Treatment Upcoming Encounters Date Type Department Care Team (Late st Contact Info) Description 06/05/2025 8:30 AM CDT Office Visit Transitional Care at [facility] [address] [place] [address] 06/15/2025 2:30 PM CDT Appointment [facility] [address] [place] [phone] Robb Wakefield MD [address] [place] [address] 06/15/2025 3:15 PM CDT Office Visit [facility] - Neurosurgery [address] [place] [address], [place] [phone] Arya Rm MD [address] [place] [address] [place] [phone] Health Maintenance Due Date Last Done Comments [...] SCREENING 06/28/2024 DIABETES-FOOT EXAM WITH MONOFILAMENT 06/28/2024 DIABETES - URINE PROTEIN SCREENING 10/29/2024 06/28/2024 INFLUENZA VACCINE (#1) 2025 DIABETES-HGB A1C 11/29/2025 05/29/2025, 06/28/2024 DIABETES-SERUM CREATININE 05/31/20262024, 05/30/2025, 05/29/2025, Additional history exists HIV SCREENING Completed 06/06/2024 DEPRESSION SCREENING Completed 11/20/2024, 08/12/20 HEPATITIS C SCREENING Completed 05/27/2025 , 02/26/2025, 02/19/2025, Additional history exists HIB VACCINE Aged [...] this topic Medical Devices Implanted Type Area Stair Builder Device Identifier Shelf Expiration Date Model / Serial / Lot Kit Spnl 5.8mm Spinejack Implanted:Qty: 1 on 07/22/2024 by Arya Rm MD at [facility] N/A: Spine Lumbar Dottie Spine 10/28/2024 [id number] / / [id number] Kit Bone Cmnt Vertaplex Hv Autoplex Wo Implanted:Qty: 1 on 07/22/2024 by Arya Rm MD at [facility] N/A: Spine Lumbar [place] Spine 05/29/2025 [id number] / / [id number] Port Implinfn Powerport Clrvu Argd Nya Implanted:Qty: 1 on 08/20/2024 by Vic Callahan MD at [facility] Right: Chest Wall Bard Peripheral Vascular 08/28/2025 [id number] / / [id number] Mixer Bone Cmnt Kyphon C20gm Ll Fit Implanted:Qty: 1 on 12/02/2024 by Arya Rm MD at [facility] N/A: Spine Lumbar Kyphon Inc [id number] / / Cmnt Bone Hv-R Kphx Mxr Grad Mrk Dspns Implanted:Qty: 1 on 12/02/2024 by Arya Rm MD at [facility] N/A: Spine Lumbar Kyphon Inc [id number] / / Graft Bone Grftn Dbm Plif 10x2.5cm Implanted:Qty: 1 on 12/02/2024 by Arya Rm MD at [facility] N/A: Spine Lumbar Osteotech Inc [id number] / / Ezekiel Spnl 500mm 5.5mm Cd Hzn Str Ti Ln Cp Implanted:Qty: 1 on 12/02/2024 by Arya Rm MD at [facility] N/A: Spine Lumbar Medtronic Inc [id number] / / Graft Bone Grftn Dbm Aspt 5x2.5cm Post Implanted:Qty: 1 on 12/02/2024 by Arya Rm MD at [facility] N/A: Spine Lumbar Medtronic Inc [id number] / / Screw Set Ti Spnl Brk Off Cd Hzn Nonster Implanted:Qty: 8 on 12/02/2024 by Arya Rm MD at [facility] N/A: Spine Lumbar Medtronic Inc [id number] / / Screw 7.5mm 55mm Ma Spne Solera Cd Hzn Implanted:Qty: 2 on 12/02/2024 by Arya Rm MD at [facility] N/A: Spine Lumbar Medtronic Inc [id number] / / Screw 7.5mm 50mm Ma Spne Solera Cd Hzn Implanted:Qty: 6 on 12/02/2024 by Arya Rm MD at [facility] Medtronic Inc [id number] / / Slnt Dura Duraseal Pg Trilysine Amine 5 Implanted:Qty: 1 on 12/02/2024 by Arya Rm MD at [facility] N/A: Spine Lumbar Integra [employer] Thang [id number] / / Explanted Type Area Stair Builder Device Identifier Shelf Expiration Date Model / Serial / Lot Kit Osteocool Srg 10ga Bone Acc Explanted:Qty: 2 on 07/22/2024 by Arya Rm MD at [facility] N/A: Spine Lumbar Medtronic Inc [id number] / / [id number] Description:Access device, n ot an implant. No other options in system Probe 17ga 20mm Rf Eltx Osteocool 2mm Explanted:Qty: 1 on 07/22/2024 by Arya Rm MD at [facility] N/A: Spine Lumbar Medtronic Inc 03/26/2027 [id number] / / [id number] Description:Access device, n ot an implant. No [...] RATE STAT 05/28/2025 1:[address] THORACIC SPINE WO CONTRAST STAT 05/28/2025 3:39 AM CDT Acute midline thoracic back pain CT LUMBAR SPINE WO CONTRAST STAT 05/28/2025 3:39 AM CDT Acute midline low back pain, unspecified whether sciatica present TYPE + SCREEN PANEL STAT 05/28/2025 1 :26 AM CDT COMPREHENSIVE METABOLIC PANEL STAT 05/28/2025 1:26 AM CDT CBC W AUTO DIFFERENTIAL STAT 05/28/2025 1:26 AM CDT HEPATITIS C GENOTYPE Routine 12/18/2024 2:53 PM INTERNAL CONTROL ANALYST Chronic hepatitis C without hepatic coma MICROALB/CREAT RATIO URINE RANDOM PANEL Routine 06/28/2024 6:31 AM CDT Hyperglycemia HIV-1 HIV-2 ANTIBODY + HIV P24 AG PANEL STAT 06/06/2024 11:59 AM CDT from Last 3 Months or Most Recently Relevant to Health Maintenance Results * (ABNORMAL) DIFFERENTIAL MANUAL (05/31/2025 6:56 AM CDT) Only the most recent of2 resultswithin the time period is included. Neutrophil % 43 41 - 74 % 05/31/2025 8:08 AM CDT [facility] Lymphocyte % 48(H) 17 - 47 % 05/31/2025 8:08 AM CDT [facility] Monocyte % 7 3 - 11 % 05/31/2025 8:08 AM CDT [facility] Basophil % 2 0 - 2 % 05/31/2025 8:08 AM [facility] Neutrophil Absolute 5.38 1.60 - 7.50 x10E9/L 05/31/2025 8:08 AM [facility] Lymphocyte Absolute 6.00(H) 1.00 - 4.40 x10E9/L 05/31/2025 8:08 AM [facility] Monocyte Absolute 0.88 0.15 - 1.00 x10E9/L 05/31/2025 8:08 AM [facility] Basophil Absolute 0.25(H) 0.00 - 0.13 x10E9/L 05/31/2025 8:08 AM [facility] RBC Morphology REVIEWED 05/31/2025 8:08 AM [facility] Large Platelets PRESENT(A) (none) 05/31/2025 8:08 AM [facility] Blood BLOOD SPECIMEN / Unknown Lab Venipuncture / Unknown 05/31/2025 6:56 AM CDT 05/31/2025 7:31 AM CDT us Cristian Garcia MD LAB - HEMATOLOGY ORDERABLES F inal Result [address] [address], [facility] [phone] * (ABNORMAL) CBC W AUTO DIFFERENTIAL (05/31/2025 6:56 AM CDT) Only the most recent of4 resultswithin the time period is included. WBC 12.5(H) 4.0 - 10.7 x10E9/L 05/31/2025 8:08 AM [facility] RBC Count 5.46 4.30 - 5.80 x10E12/L 05/31/2025 8:08 AM [facility] Hemoglobin 15.5 13.3 - 17.5 g/dL 05/31/2025 8:08 AM [facility] Hematocrit 46.6 38.7 - 51.1 % 05/31/2025 8:08 AM [facility] MCV 85.3 80.0 - 98.0 fL 05/31/2025 8:08 AM [facility] MCH 28.4 26.7 - 33.6 pg 05/31/2025 8:08 AM [facility] MCHC 33.3 31.7 - 36.3 g/dL 05/31/2025 8:08 AM [facility] RDW-CV 15.1(H) 11.3 - 14.8 % 05/31/2025 8:08 AM [facility] Platelet Count 216 150 - 420 x10E9/L 05/31/2025 8:08 AM [facility] MPV 11.0 7.8 - 11.4 fL 05/31/2025 8:08 AM [facility] Blood BLOOD SPECIMEN / Unknown Lab Venipuncture / Unknown 05/31/2025 6:56 AM CDT 05/31/2025 7:31 AM CDT us Cristian Garcia MD LAB - HEMATOLOGY ORDERABLES F inal Result [facility] [address] [place] [address], [facility] [phone] * (ABNORMAL) RENAL FUNCTION PANEL (05/31/2025 6:56 AM CDT) Only the most recent of3 resultswithin the time period is included. BUN 14 7 - 26 mg/dL 05/31/2025 8:02 AM [facility] Creatinine 0.74 0.71 - 1.16 mg/dL 05/31/2025 8:02 AM [facility] Sodium 138 136 - 145 mmol/L 05/31/2025 8:02 AM [facility] Potassium 3.8 3.5 - 4.5 mmol/L 05/31/2025 8:02 AM [facility] Chloride 108(H) 98 - 107 mmol/L 05/31/2025 8:02 AM [facility] CO2 26 22 - 29 mmol/L 05/31/2025 8:02 AM [facility] Glucose 120(H) 70 - 99 mg/dL 05/31/2025 8:02 AM [facility] Albumin 4.0 3.4 - 5.0 g/dL 05/31/2025 8:02 AM [facility] Calcium 8.7 8.4 - 10.2 mg/dL 05/31/2025 8:02 AM [facility] Phosphorus 3.5 2.8 - 5.1 mg/dL 05/31/2025 8:02 AM [facility] Anion Gap 4(L) 6 - 16 05/31/2025 8:02 AM [facility] BUN/Creatinine Ratio 19 7 - 23 05/31/2025 8:02 AM [facility] Osmolality Calculated 288 275 - 295 mOsm/kg 05/31/2025 8:02 AM [facility] eGFR by CKD-EPI >90 >=90 mL/min/1.7 3 m2 05/31/2025 8:02 AM [facility] Comment:Estimated Glomerular Filtration Rate (eGFR) calculated using the CKD-EPI Creatinine Equation (2020), per the National Kidney Foundation and [place] Society of Nephrology recommendations. Blood BLOOD SPECIMEN / Unknown Lab Venipuncture / Unknown 05/31/2025 6:56 AM CDT 05/31/2025 7:31 AM CDT us Cristian Garcia MD LAB - CHEMISTRY ORDERABLES Fi nal Result [address] [address], [facility] [phone] * MAGNESIUM BLOOD (05/31/2025 6:56 AM CDT) Only the most recent of3 resultswithin the time period is included. Magnesium 1.9 1.6 - 2.6 mg/dL 05/31/2025 8:02 AM [facility] Blood BLOOD SPECIMEN / Unknown Lab Venipuncture / Unknown 05/31/2025 6:56 AM CDT 05/31/2025 7:31 AM CDT us Cristian Garcia MD LAB - CHEMISTRY ORDERABLES Fi nal Result Performing Organization Address City/[facility]/ZIP Co de Phone Number [address] [address], [facility] [phone] * GLUCOSE - POINT OF CARE (05/31/2025 6:14 AM CDT) Only the most recent of10 resultswithin the time period is included. Glucose WB/POC 98 70 - 99 mg/dL 05/31/2025 6:18 AM CDT [facility] Specimen Type Arterial/C apillary 05/31/2025 6:18 AM CDT [facility] Blood BLOOD SPECIMEN / Unknown 05/31/2025 6:14 AM CDT 05/31/2025 6:18 AM CDT Robb Wakefield MD LAB - POINT OF CARE ORDERA BLES Final Result Performing Organization Address [facility]/ZIP Co de Phone Number [address] [address], [facility] [phone] * (ABNORMAL) HEMOGLOBIN A1C (05/29/2025 7:04 AM CDT) Hemoglobin A1c 6.1(H) <=5.6 % 05/29/2025 11:58 AM T [facility] Estimated Average Glucose 128 mg/dL 05/29/2025 11:58 AM [facility] Comment: HbA1c Interpretation: Normal : < 5.7% Pre-diabetes: 5.7-6.4% Diabetes: Equal to or greater than 6.5% Test results diagnostic of diabetes should be repeated for confirmation. Treatment target values recommended by ADA and other clinical organizations should be used to evaluate metabolic control in patients. Reference: [place] Diabetes Association, Standards of Care in Diabetes -2020 In patients 70 years and older consider HbA1c target range of 7.0-7.5% (Reference: Jona Epstein et al. JAMDA. 2012) The Sebia assay for the measurement of HbA1c is a National Glycohemoglobin Standardization Program (NGSP) certified method. Blood BLOOD SPECIMEN / Unknown Lab Venipuncture / Unknown 05/29/2025 7:04 AM CDT 05/29/2025 8:00 AM CDT Cristian Garcia MD LAB - CHEMISTRY ORDERABLES Fi nal Result [address] [address], [place] [phone] * (ABNORMAL) C-REACTIVE PROTEIN (05/28/2025 1:59 PM CDT) C-Reactive Protein 0.6(H) <=0.5 mg/dL 05/28/2025 2:38 PM CDT [facility] Blood BLOOD SPECIMEN / Unknown Venipuncture / Unknown 05/28/2025 1:59 PM CDT 05/28/2025 2:10 PM CDT Robb Wakefield MD LAB - CHEMISTRY ORDERABLES Final Result [address] [address], [place] [phone] * ERYTHROCYTE SEDIMENTATION RATE (05/28/2025 1:59 PM CDT) Pathologist [facility] Erythrocyte Sedimentation Rate Westergren 8 0 - 15 MM/HR 05/28/2025 2:32 PM CDT [facility] Blood BLOOD SPECIMEN / Unknown Venipuncture / Unknown 05/28/2025 1:59 PM CDT 05/28/2025 2:10 PM CDT Robb Wakefield MD LAB - HEMATOLOGY ORDERABLE S Final Result [address] [address], [place] [phone] * CT Lumbar Spine Wo Contrast (05/28/2025 [...] correlation for possible infection. > Dictated by Nutrition Consultant I, Natan Modi MD have personally reviewed and interpreted this examination/study. > Interpreting Provider: Natan Modi MD on 05/28/2025 10:09 AM Narrative 05/28/2025 10:09 AM CDT PROCEDURE: CT THORACIC SPINE WO CONTRAST, CT LUMBAR SPINE WO CONTRAST, DATE/TIME OF EXAM: 05/28/2025 3:39 AM, LOCATION [facility] INDICATION: M54.6: Acute midline thoracic back pain [...] DATE/TIME OF EXAM: 05/28/2025 3:39 AM, LOCATION [facility] INDICATION: M54.6: Acute midline thoracic back pain [...] L3 on L4. Redemonstration of a chronic A9ndjhykipz body fracture status post kyphoplasty. An irregular lytic lesion and the sclerotic changes with cortical enlargement are noted in the L3bwsjayxhj body. No acute fracture identified. Mild to [...] correlation for possible infection. > Dictated by Nutrition Consultant I, Natan Modi MD have personally reviewed and interpreted this examination/study. > Interpreting Provider: Natan Modi MD on 05/28/2025 10:09 AM us Cristian Garcia MD CT ORDERABLES Final Result * CT Thoracic Spine Wo Contrast (05/28/2025 [...] correlation for possible infection. > Dictated by Nutrition Consultant I, Natan Modi MD have personally reviewed and interpreted this examination/study. > Interpreting Provider: Natan Modi MD on 05/28/2025 10:09 AM Narrative 05/28/2025 10:09 AM CDT PROCEDURE: CT THORACIC SPINE WO CONTRAST, CT LUMBAR SPINE WO CONTRAST, DATE/TIME OF EXAM: 05/28/2025 3:39 AM, LOCATION [facility] INDICATION: M54.6: Acute midline thoracic back pain [...] DATE/TIME OF EXAM: 05/28/2025 3:39 AM, LOCATION [facility] INDICATION: M54.6: Acute midline thoracic back pain [...] L3 on L4. Redemonstration of a chronic S8shbvdzbki body fracture status post kyphoplasty. An irregular lytic lesion and the sclerotic changes with cortical enlargement are noted in the J7iatcfgwma body. No acute fracture identified. Mild to [...] correlation for possible infection. > Dictated by Nutrition Consultant I, Natan Modi MD have personally reviewed and interpreted this examination/study. > Interpreting Provider: Natan Modi MD on 05/28/2025 10:09 AM Cristian Garcia MD CT ORDERABLES Final Result * TYPE + SCREEN PANEL (05/28/2025 1:26 AM CDT) Pathologist [facility] Antibody Screen NEG 2:26 AM CDT [facility] ABO Rh O POS 05/28/2025 2:26 AM CDT [facility] Blood Bank BLOOD SPECIMEN / Unknown Venipuncture / Unknown 05/28/2025 1:26 AM CDT 05/28/2025 1:46 AM CDT Cristian Garcia MD LAB - BLOOD BANK ORDERABLES F inal Result [facility] [address] [place] [address], [facility] [phone] * (ABNORMAL) COMPREHENSIVE METABOLIC PANEL (05/28/2025 1:26 AM CDT) Pathologist [facility] BUN 14 7 - 26 mg/dL 05/28/2025 2:10 AM CDT [facility] Creatinine 0.86 0.71 - 1.16 mg/dL 05/28/2025 2:10 AM [facility] Sodium 140 136 - 145 mmol/L 05/28/2025 2:10 AM [facility] Potassium 3.9 3.5 - 4.5 mmol/L 05/28/2025 2:10 AM [facility] Chloride 110(H) 98 - 107 mmol/L 05/28/2025 2:10 AM [facility] CO2 24 22 - 29 mmol/L 05/28/2025 2:10 AM [facility] Glucose 107(H) 70 - 99 mg/dL 05/28/2025 2:10 AM [facility] Calcium 8.9 8.4 - 10.2 mg/dL 05/28/2025 2:10 AM [facility] Protein Total 6.3 6.0 - 8.3 g/dL 05/28/2025 2:10 AM [facility] Albumin 4.3 3.4 - 5.0 g/dL 05/28/2025 2:10 AM [facility] Bilirubin Total 0.3 0.2 - 1.2 mg/dL 05/28/2025 2:10 AM [facility] Alkaline Phosphatase 129 40 - 150 U/L 05/28/2025 2:10 AM [facility] ALT 23 5 - 55 U/L 05/28/2025 2:10 AM [facility] AST 25 5 - 34 U/L 05/28/2025 2:10 AM [facility] Anion Gap 6 6 - 16 05/28/2025 2:10 AM [facility] BUN/Creatinine Ratio 16 7 - 23 05/28/2025 2:10 AM [facility] Osmolality Calculated 291 275 - 295 mOsm/kg 05/28/2025 2:10 AM [facility] Albumin/Globulin Ratio 2.2 1.1 - 2.3 05/28/2025 2:10 AM [facility] eGFR by CKD-EPI >90 >=90 mL/min/1.7 3 m2 05/28/2025 2:10 AM [facility] Comment:Estimated Glomerular Filtration Rate (eGFR) calculated using the CKD-EPI Creatinine Equation (2020), per the National Kidney Foundation and [place] Society of Nephrology recommendations. Blood BLOOD SPECIMEN / Unknown Venipuncture / Unknown 05/28/2025 1:26 AM CDT 05/28/2025 1:39 AM [facility] us Cristian Garcia MD LAB - CHEMISTRY ORDERABLES Fi nal Result [facility] [address] [place] [address], [facility] [phone] * HEPATITIS C GENOTYPE (12/18/2024 2:53 PM INTERNAL CONTROL ANALYST) Hepatitis C Genotype 3a 12/23/2024 7:28 AM INTERNAL CONTROL ANALYST [facility] ([facility]) Comment: INTERPRETIVE INFORMATION: Hepatitis C Genotyping Hepatitis C viral RNA is tested using reverse store grocery merchandiser polymerase chain reaction (RT-PCR) to amplify a specific portion of the 5' untranslated region (5' UTR) of the viral genome. The amplified nucleic acid is sequenced bidirectionally using dye-terminator chemistry ([facility]). Sequencing data is compared to a database [...] developed and its performance characteristics determined by [employer]. It has not been cleared or approved by the U.S. Food and Drug Administration. This test was performed in a CLIA-certified laboratory and is intended for clinical purposes. Performed By: [facility] [employer] [address] [place] [address] Blanket Maker: Jake Clemons MD, PhD CLIA Number: [id number] Blood BLOOD SPECIMEN / Unknown Lab Venipuncture / Unknown 12/18/2024 2:53 PM INTERNAL CONTROL ANALYST 12/18/2024 3:25 PM INTERNAL CONTROL ANALYST Cristian Mcmillan MD LAB - CHEMISTRY ORDERABLES Fi nal Result [facility] [address] [facility]) [address] [place] [address] * MICROALB/CREAT RATIO URINE RANDOM PANEL (06/28/2024 6:31 AM CDT) Pathologist [facility] Albumin Random Urine <5.0 Not Established ug/mL 06/28/2024 9:49 PM CDT [facility] Creatinine Urine 82.62 Not Established mg/dL 06/28/2024 9:49 PM CDT [facility] Urine Albumin/Creati nine Ratio <6 <30 mg/g 06/28/2024 9:49 PM CDT [facility] Albumin/Creati nine Ratio Urine See Comment <30 mg/g 06/28/2024 9:49 PM CDT [facility] Comment:Unable to calculate the Urine Albumin/Creatinine Ratio due to one or more analyte concentration(s) being outside the measuring limits of the instrument. Urine URINE SPECIMEN OBTAINED BY CLEAN CATCH PROCEDURE / Unknown Collection / Unknown 06/28/2024 6:31 AM CDT 06/28/2024 7:54 PM CDT us Robb Gomez MD LAB - URINE CHEMISTRY ORDERA BLES Final Result [address] [address], [place] [phone] * HIV-1 HIV-2 ANTIBODY + HIV P24 AG PANEL (06/06/2024 11:59 AM CDT) HIV Antigen/Antibod y 1 & 2 Non-reacti ve Non-react khari 06/06/2024 12:58 PM CDT [facility] Comment:No Laboratory eviden ce of HIV infection. Blood BLOOD SPECIMEN / Unknown Lab Venipuncture / Unknown 06/06/2024 11:59 AM CDT 06/06/2024 12:07 PM CDT Gina Burt MD LAB - CHEMISTRY ORDERABLES Final Result Performing Organization Address City/[facility]/ZIP Co de Phone Number [address] [address], [place] [phone] from Last 3 Months or Most Recently Relevant to Health Maintenance Additional Health Concerns Infection Onset Date Last Indicated 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 Insurance MEDICAID [employer] [facility] Advance Directives Documents on File Type Date Recorded Patient Back Panel Padder Expl anation Adv Directive/Living Will/POA 08/13/2024 1:30 PM RAD/ONC Adv Directive/Living Will/POA 08/12/2024 1:00 PM * Full Code (Latest Code Status on File) Date Activated Date Inactivated Comments 05/28/2025 4:24 AM 05/31/2025 10:30 AM * Full Code Date Activated Date Inactivated Comments 11/23/2024 1:32 PM 12/10/2024 6:20 PM * Full Code Date Activated Date Inactivated Comments 11/23/2024 12:19 PM 11/23/2024 12:19 PM * Full Code Date Activated Date Inactivated Comments 10/24/2024 2:09 PM 11/07/2024 8:24 PM * Full Code Date Activated Date Inactivated Comments 08/31/2024 10:06 PM 10/01/2024 2:14 PM Care Teams Parts Inspector Relationship Specialty Start Date End Date Matthew Sorenson PA [address] [place] [address] PCP - General 02/02/22
[2025-06-01 09:09] LABS: Hematocrit 52.0 % (40.0-54.0); Hemoglobin 16.9 g/dL (14.0-18.0); Immature Granulocyte Percent A 0.3 % (0.0-0.0); Lymphocytes Absolute Auto 6.47 K/mm3 (1.10-4.50); Mean Corpuscular HGB Conc 32.5 g/dL (32-36); Mean Corpuscular Hemoglobin 28.7 pg (27.0-31.0); Mean Corpuscular Volume 88.4 fL (78.0-102.0); Nucleated Red Blood Cells Absolute Auto 0.00 K/mm3 (0.00-0.00); Nucleated Red Blood Cells Perc 0.0 % (0-0.0); Platelet Count Result 245 K/mm3 (150-420); Red Blood Count 5.88 M/mm3 (4.70-6.10); White Blood Count 13.0 K/mm3 (4.8-10.8)
[2025-06-01 09:24] VITALS: BP 117/74; PULSE 80; RESP 14; TEMP 36.6; O2SAT 97; BMI 33.7
[2025-06-01 09:41] LABS: Alanine Aminotransferase 27 U/L (6-50); Albumin Level 4.5 g/dL (3.5-5.1); Alkaline Phosphatase 95 U/L (38-126); Anion Gap 6 mmol/L (4-12); Aspartate Amino Transferase 29 U/L (17-59); Bilirubin,Total 0.5 mg/dL (0.2-1.3); Blood Urea Nitrogen 14 mg/dL (9-20); Calcium 8.9 mg/dL (8.4-10.2); Carbon Dioxide 25 mmol/L (22-30); Chloride 108 mmol/L (98-107); Estimated CRCL calculation 133 ml/min; Estimated Glomerular Filt Rate > 60; Glucose 114 mg/dL (65-110); Osmolality Calculated 289 mOsm/kg (285-295); Potassium 4.0 mmol/L (3.4-5.0); Sodium 139 mmol/L (137-145); Total Protein 6.9 g/dL (6.3-8.2)
[2025-06-01 09:59] VITALS: TEMP 36.5
[2025-06-01] MEDS: ACETAMINOPHEN 325 MG TABLET 650 MG PO (09:59)
[2025-06-01] MEDS: diphenhydrAMINE HCl CAP 25 MG CAPSULE PO (10:00)
[2025-06-01] MEDS: FAMOTIDINE 20 MG TABLET PO (10:01)
[2025-06-01] MEDS: DARATUMUMAB-HYALURONIDASE-FIHJ 1,800 MG-30,000 UNITS VIAL 15 ML SUB-Q (10:20)
[2025-06-01 10:55] VITALS: BP 145/89; PULSE 66; RESP 14; TEMP 36.6; O2SAT 99
--- NOTE | 2025-06-01 10:55 | PC.NURSE ---
Unable to get IV for Zoledronic acid infusion. Will give patient a break. Dr. Tevin dominguez to try next week. Tolerated Darzalex Faspro injection in abd. well.
== END 2025-06-01 08:53 | disposition home or self-care (01) ==
PROVIDERS: PCP Physician Assistant; Visit Provider Internal Medicine Hematology
DX: Z51.11 Encounter for antineoplastic chemotherapy (principal); C90.00 Multiple myeloma not having achieved remission
CPT/HCPCS: 36415; 80053; 85025; 96401; A9270; J3489; J8540; J9144

== ENCOUNTER 2025-06-16 08:27 | Outpatient (CLI) | payer OTHER, SELFPAY ==
--- OUTSIDE RECORDS SUMMARY | 2025-02-19 11:37 | XMS_ITS | Encounter Summary ---
Author Organization [facility] Address [address] [place] [address] Care Team Providers Care Senior Windows Engineer Name Role Phone Matthew Sorenson Primary Care Provider [phone] Jose Luis Brooks MD Unavailable [phone] Abelardo Presley MD Unavailable [phone] Bo Francisco MD Unavailable [phone] Angie Rogers MD Unavailable Katie GutierrezD Unavailable Unavaila Jaja Casillas RN Unavailable Unavailable Abimbola Waters YARD SUPERVISOR-TECHNICAL SPECIALIST Unavailable [phone] Perri Dexter YARD SUPERVISOR-TECHNICAL SPECIALIST Unavailable [phone] Marilyn Bennett RN Unavailable Unavailable Erasmo Roberson RN Unavailable Unavailable Alexandra Cota RN Unavailable Unavailable Alda Braswell Unavailable Unavailable Lucia Sharif LCSW Unavailable Unavailab le Reason for Referral * (Routine) - Open Specialty Diagnoses / Procedures Referred By Contac t Referred To Contact Procedures Follow up with provider Juan Valencia MD [address] [place] [address] Phone: tel: fax: Referral ID Status Reason Start Date Expiration Date Visits Re quested Visits Authorized [id number] Open 02/19/2025 02/19/2026 1 1 * Radiology Services (Routine) - Open Specialty Diagnoses / Procedures Referred By Contac t Referred To Contact Diagnoses Hepatitis C virus infection without hepatic coma, unspecified chronicity History of multiple myeloma Procedures CT US Guided Needle Placement IR Perc Liver Biopsy Juan Valencia MD [address] [facility] [place] [address] [place] [address] Phone: tel: fax: [facility] [address] [place] [address] Phone: tel: Referral ID Status Reason Start Date Expiration Date Visits Re quested Visits Authorized [id number] Open 02/19/2025 02/19/2026 1 1 Reason for Visit * Auth/Cert (Routine) Specialty Diagnoses / Procedures Referred By Contac t Referred To Contact Diagnoses Chronic hepatitis C without hepatic coma (HCC) Transaminitis Chronic hepatitis C without hepatic coma (HCC) [B18.2] Transaminitis [R74.01] Procedures [place] US GUIDED NEEDLE PLACEMENT BIOPSY LIVER (NEEDLE/PERCUTANEOUS) Referral ID Status Reason Start Date Expiration Date Visits Re quested Visits Authorized [id number] 1 1 Encounter Details Date Type Department Care Team (Latest Contact Info) Description 02/19/2025 11:37 AM CDT Hospital Encounter [facility] IVR [address] [place] [phone] Juan Valencia MD [facility] [facility] [place] [address] [place] [address] [facility] Social History Tobacco Use Types Packs/Day Years Used Date Smoking Tobacco: Former Cigarettes 1.5 33.8 S tarted: 08/20/1991 Passive Smoke Exposure: Past [...] Recorded Patient Health Questionnaire-2 Score 0 11/20/2024 [facility] - Occupational Stress [...] any time in the past 12 m [facility], were you homeless or living in a halfway (including now)? 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 Callum Guerrero MD Line Haul Driver Vascular & Interventional Radiology 02/20/2025 5:30 AM documented in this encounter Miscellaneous Notes * Clinical References AVS - Richie Alejandro RN - 02/19/2025 1:22 PM CDT Images from the original note were not included. [id number] Liver Biopsy A liver biopsy is when [...] naproxen. ?? Medicines for heart conditions ?? Stjj-wyn-dgqqrwv medicines ?? All prescription medicines ?? Illegal [...] belly Last Reviewed Date: 2023 00:00:00 ?? [id number] [employer] All rights reserved. This information is not [...] evaluation, please review the evaluation forms in [facility]. For details on monitored clinical parameters during the intra-service sedation time, please review the procedure nurse documentation in [facility]. > Dictated by Seng Gaston MD (Hydraulic Hammer Operator) 02/19/2025 12:59 PM Callum Mondragon MD [...] response to care. Intra-service sedation start time [id number] hours and end time was 1236 hours during which I was present. Total physician intra-service sedation time was 30 minutes. For details on pre moderate sedation and post moderate sedation patient evaluation, please review the evaluation forms in [facility]. For details on monitored clinical parameters during the intra-service sedation time, please review the procedure nurse documentation in [facility]. > Dictated by Seng Gaston MD (Hydraulic Hammer Operator) 02/19/2025 12:59 PM Callum Mondragon MD have personally reviewed and interpreted this examination/study. > Interpreting Provider: Callum Guerrero MD on 02/24/2025 5:33 PM Juan Valencia MD CT ORDERABLES Final Result * PATHOLOGY TISSUE (02/19/2025 12:34 PM CDT) Case Report Surgical Pathology Report Case: [id number] Authorizing Provider: Juan Valencia MD Collected: 02/19/2025 12:34 PM Ordering Location: [facility] IVR Received: 02/19/2025 01:06 PM Pathologist: Sammi Escalante MD Specimen: Liver Needle Biopsy, liver bx 02/20/2025 3:50 PM CDT [facility] Final Diagnosis Liver, biopsy (A): - Chronic hepatitis with minimal-mild activity - Steatosis and lobular inflammation without ballooning - Cirrhosis, see comment 02/20/2025 3:50 PM CDT [facility] at 1550 CDT Microscopic [...] inflammation-1, ballooning-0). 02/20/2025 3:50 PM [facility] Clinical History The patient is a 44-year-old man with history of hepatitis C infection and appearance of cirrhosis on diagnostic imaging. Operative procedure: Ultrasound-guided random core liver biopsy 02/20/2025 3:50 PM [facility] Gross Description The requisition and specimen(s) are identified with the patient's name, Joselito Nguyen. Received in formalin, specimen A, are two baldwin-pink needle cores, 1.7 and 1.0 cm, both 0.1 cm diameter, submitted in toto in cassette A1. IKD 02/20/2025 3:50 PM [facility] Pathologist Location at [facility] 02/20/2025 3:50 PM [facility] Disclaimer The performance characteristics of all immunohistochemical and indirect immunofluorescence stains (if any) cited in this report were determined by the Histopathology Laboratory of [facility]. Some of these tests were developed [...] (teaching) pathologist. 02/20/2025 3:50 PM [facility] Collected By Balbir Rdz RN 3:50 PM [facility] Embedded Images 02/20/2025 3:50 PM [facility] Pathology/Cytolo gy NEEDLE BIOPSY OF LIVER / Unknown Collection / Unknown 02/19/2025 12:34 PM CDT 02/19/2025 1:06 PM CDT Comment:LIVER NEEDLE BIOPSY Juan Valencia MD LAB - PATHOLOGY/CYTOLOGY ORDER LISSETH Final Result [facility] [address] [place] [address], [place] [phone] documented in this encounter Visit Diagnoses Diagnosis [...] documented as of this encounter Care Teams Senior Windows Engineer Relationship Specialty Start Date End Date Matthew Sorenson PA [address] [place] [address] PCP - General 02/02/22 Jose Luis Brooks MD [address] [place] [address] Mold Maker Apprentice/Oncologis t Hematology and Oncology 08/29/24 05/27/25 Abelardo Presley MD [address] [place] [address] Hematology and Oncology 08/29/24 03/04/25 Bo Francisco MD [address] [place] [phone] Hematology and Oncology 08/29/24 03/04/25 Angie Rogers MD [address] [place] [address] Physician Hematology and Oncology 08/29/24 03/04/25 Katie Gutierrez, PharmD 08/29/24 03/04/25 Jaja Rayo, RN Registered Nurse 08/29/24 03/04/25 Abimbola Waters, DAYNA-TECHNICAL SPECIALIST [address] [place] [phone] Nurse Practitioner Nurse Practitioner 08/29/24 03/04/25 Perri Dexter APRN-CNP [address] [place] [address] Nurse Practitioner Nurse Practitioner 08/29/24 03/04/25 Marilyn Bennett, RN Coordinator 08/29/24 05/27/25 Erasmo Roberson, RN Registered Nurse 08/29/24 03/04/25 Alexandra Cota, RN Registered Nurse 08/29/24 03/04/25 Alda Braswell 08/29/24 03/04/25 Lucia Sharif, NEUROLOGY MANAGER Chairman & Chief Executive Officer 08/29/24 03/04/25 documented as of this encounter
--- OUTSIDE RECORDS SUMMARY | 2025-06-15 08:30 | XMS_ITS | Encounter Summary ---
Author Organization [facility] Address [address] [place] [address] Care Team Providers Care Academic Program Specialist Name Role Phone Matthew Sorenson Primary Care Provider [phone] Reason for Referral * Radiology Services (Emergency) - Closed Specialty Diagnoses / Procedures Referred By Contac t Referred To Contact MRI Diagnoses Multiple myeloma, remission status unspecified (HCC) Procedures MRI Lumbar Spine Wo Contrast Robb Wakefield MD [address] [place] [address] Phone: tel: fax: [facility] MRI [address] [place] [phone] Phone: tel: fax: Referral ID Status Reason Start Date Expiration Date Visits Re quested Visits Authorized [id number] Closed 05/28/2025 05/28/2026 1 1 Reason for Visit * Radiology Services (Emergency) - Closed Specialty Diagnoses / Procedures Referred By Contac t Referred To Contact MRI Diagnoses Multiple myeloma, remission status unspecified (HCC) Procedures MRI Lumbar Spine Wo Contrast Robb Wakefield MD [address] [place] [address] Phone: tel: fax: [facility] MRI [address] [place] [address] Phone: tel: fax: Referral ID Status Reason Start Date Expiration Date Visits Re quested Visits Authorized [id number] Closed 05/28/2025 05/28/2026 1 1 Encounter Details Date Type Department Care Team (Latest Contact Info) Description 06/15/2025 8:30 AM CDT - 06/15/2025 11:59 PM CDT Hospital Encounter [facility] MRI [address] [place] [address] Robb Wakefield MD [address] [place] [address] Discharge Disposition: Home or Self Care Social [...] Recorded Patient Health Questionnaire-2 Score 0 11/20/2024 [facility] - [...] any time in the past 12 m [facility], were you homeless or living in a nursing home (including now)? 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 Answer Date of Assessment Author No 02/19/2025 1:20 PM CDT Alejandro, Richie W., RN documented as of this encounter Mental Status * Does person have difficulty concentrating/remembering/making decisions? Answer Entry Date Author No 02/19/2025 1:20 PM CDT Richie Alejandro, RN documented in this encounter Medications at Time [...] 1 Each 06/28/2024 Blood Glucose Monitoring Suppl (OneTouch Verio Flex System) w/Device KITIndications:H yperglycemia, unspecified [...] ROUTE FOR 90 DAYS. 12/26/2024 Continuous Glucose Bell Spinner (Dexcom G7 Bell Spinner) SONIA as directed Continuous Glucose Sensor (Dexcom G7 [...] with primary care 30 tablet 1 01/01/2025 mirtazapine (Remeron) 15 MG tablet TAKE 1 [...] needed for Nausea/Vomiting 30 tablet 6 01/13/2025 sertraline (Zoloft) 50 MG tablet TAKE 1 TABLET BY MOUTH EVERY DAY 90 tablet 1 11/05/2024 TRUEplus 5-[place] 31G X 6 MM MISC USE TO INJECT INSULIN 3 TIMES DAILY 11/20/2024 documented as of this encounter Plan of Treatment Not on file documented as of this encounter Procedures Procedure Name Priority Date/Time Associated Diagnosis Comments MRI LUMBAR SPINE WO CONTRAST STAT 06/15/2025 10:10 AM CDT Multiple myeloma, remission status unspecified (HCC) documented in this encounter Results * MRI Lumbar Spine Wo Contrast (06/15/2025 10:10 AM CDT) Anatomical Region Laterality Modality Spine Magnetic Resonan ce 06/15/2025 2:07 PM CDT Impressions 06/15/2025 2:24 PM CDT IMPRESSION: Redemonstration of postsurgical changes from posterior segment effusion through the levels of L1-L5. Interval evolution of fluid collection with residual small seroma, at the laminectomy bed at the level of L2-L3. Significant interval decrease in the associated central canal stenosis. Mild residual central canal stenosis noted at L2-L3 and mild to moderate residual canal stenosis at the level of L3-L4.. No high-grade central canal stenosis noted. Significant interval resolution of edema involving the bilateral iliopsoas musculature at the level of L3-L4 and also edema involving L4 vertebral body. > Interpreting Provider: Luda Eubanks MD on 06/15/2025 2:24 PM Narrative 06/15/2025 2:24 PM CDT PROCEDURE: MRI LUMBAR SPINE WO CONTRAST, DATE/TIME OF EXAM: 06/15/2025 10:11 AM, LOCATION [facility] INDICATION: C90.00: Multiple myeloma, remission status unspecified (HCC) ADDITIONAL CLINICAL INFORMATION: Ordering Provider Reason For Exam: L3 stenosis Technologist Note: Additional: COMPARISON: MRI lumbar spine 01/01/2025, CT lumbar spine 05/28/2025 TECHNIQUE: Lumbar spine MRI was performed without contrast, according to standard protocol. FINDINGS: Redemonstration of of posterior instrumented fusion through the levels of L1-L5 with bilateral pedicular screws and interconnecting rods except for the level of L3. Susceptibility artifact from hardware slightly limits evaluation. Prior postsurgical changes from laminectomy at the level of L2-L3. Previously noted heterogeneous collection at the laminectomy bed shows interval increased T2 hyperintensity and measures approximately 3.6 x 1 x 2 cm previously measured 4.7 x 2.8 x 3.7 cm suggesting interval evolution of the postsurgical hematoma/trauma. Interval resolution of associated mass effect on the adjacent central canal. Redemonstration of heterogeneous appearance of the L3 vertebral body secondary to known changes of kyphoplasty and underlying compression fractures, multiple myeloma lesion. Interval resolution of STIR hyperintensity involving L4 vertebral body suggesting resolution of known edema. Significant interval resolution of edema involving the bilateral iliopsoas musculature predominantly at the levels of L3-L4.. Mild 4 to 5 mm retrolisthesis of L3 on L4 again noted.. The conus medullaris terminates at the level of L1 and the distal spinal cord signal intensity is normal. Other than postsurgical changes in the posterior paraspinal soft tissues no acute soft tissue findings noted. No new fluid collections noted. Heterogeneous lesion noted involving the partially visualized left iliac bone could be sequela also could be secondary to known multiple myeloma. L1-L2: Mild diffuse disc bulge. There is no central canal stenosis. Evaluation of the facet joints is limited secondary to this and hardware. There is no neural foraminal stenosis. L2-L3: Is mild diffuse disc bulge. Mild central canal stenosis with the small posterior fluid collection/seroma at the surgical laminectomy bed. Changes of facetectomy. There is mild bilateral neural foraminal stenosis. L3-L4: Moderate diffuse disc bulge and retrolisthesis causing mild to moderate thecal sac stenosis unchanged compared to prior study. Dorsal epidural lipomatosis also noted at this level. Changes of partial laminectomy,, interval decreased central canal stenosis at this level compared to prior study. Interval change in the central canal. Evaluation of the facet joints is limited by artifact from the hardware.. There is moderate to severe bilateral neural foraminal stenosis. L4-L5: Mild diffuse disc bulge. There is no central canal stenosis. There is mild to moderate bilateral facet osteoarthritis. There is mild left neural foraminal stenosis. L5-S1: Is moderate diffuse disc bulge. There is no central canal stenosis. There is is moderate bilateral facet osteoarthritis. There is is moderate bilateral neural foraminal stenosis. Procedure Note Luda Eubanks MD - 06/15/2025 PROCEDURE: MRI LUMBAR SPINE WO CONTRAST, DATE/TIME OF EXAM: 06/15/2025 10:11 AM, LOCATION [facility] INDICATION: C90.00: Multiple myeloma, remission status unspecified (HCC) ADDITIONAL CLINICAL INFORMATION: Ordering Provider Reason For Exam: L3 stenosis Technologist Note: Additional: COMPARISON: MRI lumbar spine 01/01/2025, CT lumbar spine 05/28/2025 TECHNIQUE: Lumbar spine MRI was performed without contrast, according to standard protocol. FINDINGS: Redemonstration of of posterior instrumented fusion through the levelsof L1-L5 with bilateral pedicular screws and interconnecting rods exceptfor the level of L3. Susceptibility artifact from hardware slightly limits evaluation. Prior postsurgical changes from laminectomy at the level of L2-L3. Previously noted heterogeneous collection at the laminectomy bed shows interval increased T2 hyperintensity and measures approximately 3.6 x 1 x2 cm previously measured 4.7 x 2.8 x 3.7 cm suggesting interval evolutionof the postsurgical hematoma/trauma. Interval resolution of associated mass effect on the adjacent central canal. Redemonstration of heterogeneous appearance of the L3 vertebral body secondary to known changes of kyphoplasty and underlying compression fractures, multiple myeloma lesion. Interval resolution of STIR hyperintensity involving L4 vertebral body suggesting resolution ofknown edema. Significant interval resolution of edema involving the bilateraliliopsoas musculature predominantly at the levels of L3-L4.. Mild 4 to 5 mm retrolisthesis of L3 on L4 again noted.. The conus medullaris terminates at the level of L1 and the distal spinal cordsignal intensity is normal. Other than postsurgical changes in the posterior paraspinal soft tissues no acute soft tissue findings noted. No newfluid collections noted. Heterogeneous lesion noted involving the partially visualized left iliac bone could be sequela also could be secondary to known multiple myeloma. L1-L2: Mild diffuse disc bulge. There is no central canal stenosis. Evaluation of the facet joints is limited secondary to this andhardware. There is no neural foraminal stenosis. L2-L3: Is mild diffuse disc bulge. Mild central canal stenosis with the small posterior fluid collection/seroma at the surgical laminectomy bed. Changes of facetectomy. There is mild bilateral neural foraminalstenosis. L3-L4: Moderate diffuse disc bulge and retrolisthesis causing mild to moderate thecal sac stenosis unchanged compared to prior study. Dorsal epidural lipomatosis also noted at this level. Changes of partial laminectomy,, interval decreased central canal stenosis at this level compared to prior study. Interval change in the central canal.Evaluation of the facet joints is limited by artifact from the hardware.. There is moderate to severe bilateral neural foraminal stenosis. L4-L5: Mild diffuse disc bulge. There is no central canal stenosis.There is mild to moderate bilateral facet osteoarthritis. There is mild left neural foraminal stenosis. L5-S1: Is moderate diffuse disc bulge. There is no central canalstenosis. There is is moderate bilateral facet osteoarthritis. There is ismoderate bilateral neural foraminal stenosis. IMPRESSION: Redemonstration of postsurgical changes from posterior segment effusion through the levels of L1-L5. Interval evolution of fluid collection with residual small seroma, atthe laminectomy bed at the level of L2-L3. Significant interval decrease inthe associated central canal stenosis. Mild residual central canal stenosis noted at L2-L3 and mild to moderate residual canal stenosis at the levelof L3-L4.. No high-grade central canal stenosis noted. Significant interval resolution of edema involving the bilateraliliopsoas musculature at the level of L3-L4 and also edema involving L4 vertebral body. 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
[2025-06-16 08:49] VITALS: BP 130/81; PULSE 68; RESP 16; TEMP 36.7; O2SAT 97; BMI 33.7
--- OUTSIDE RECORDS SUMMARY | 2025-06-16 08:50 | XMS_ITS | Clinical Summary ---
Author Organization [facility] Address [address] [place] [address] Care Team Providers Care Counter Stitcher Name Role Phone Matthew Sorenson Primary Care Provider [phone] Matthew Sorenson Unavailable [phone] Allergies Active Allergy Reactions Criticality Noted [...] TIMES A DAY FOR 10 DAYS 4 Active prochlorperazi ne (COMPAZINE) 10 mg tablet [...] Description 04/06/2025 9:00 AM CDT Office Visit [facility] Marrow Transplant [address] [place] [address] Floor 6 [place] [address] David Santiago MD Multiple myeloma, remission status unspecified (HCC) 04/06/2025 8:00 AM CDT Lab [facility] Oncology Lab [address] [place] [address] 6 [place] [address] 04/06/2025 7:[address] 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 Results from different manufacturers or methods may not be comparable. Serial testing should be performed using the same methods and instrumentation. Current Interpretive Data was last revised on 2023. Dewar free light chain [facility] 1.45 0.33 - 1.94 mg/dL [facility] Comment: Interpretive Data The Binding Site FreeLite assay procedure was used. Results from different manufacturers or methods may not be comparable. Serial testing should be performed using the same methods and instrumentation. Current Interpretive Data was last revised on 2023. Lambda free light chain [facility] 1.09 0.57 - 2.63 mg/dL USMAN [...] Final Resul t [facility]MAN PHILLIPS [facility] Department [place] [address] * (ABNORMAL) CBC with auto differential (04/06/2025 8:04 AM CDT) WBC 7.11 3.80 - 9.90 K/cumm Comment:Testing performed by : [facility], [address] [place] [address] Hgb 16.0 13.0 - 17.5 g/dL [facility] PHILLIPS Comment:Testing performed by : [facility], [address] [place] [address] Hct 47.8 38.9 - 50.3 % [facility] PHILLIPS Comment:Testing performed by : [facility], [address] [place] [address] Plt 257 150 - 400 K/cumm USMAN PHILLIPS Comment:Testing performed by : [facility], [address] [place] [address] MPV 9.1 6.8 - 10.4 fL [facility] PHILLIPS Comment:Testing performed by : [facility], [address] [place] [address] RBC 5.72 4.30 - 5.80 M/cumm [facility]MAN PHILLIPS Comment:Testing performed by : [facility], [address] [place] [address] MCV 83.6 81.3 - 96.4 fL [facility]MAN PHILLIPS Comment:Testing performed by : [facility], [address] [place] [address] MCH 28.0 27.1 - 33.3 pg [facility]MAN PHILLIPS Comment:Testing performed by : [facility], [address] [place] [address] MCHC 33.5 32.3 - 35.7 g/dL USMAN PHILLIPS Comment:Testing performed by : [facility], [address] [place] [address] RDW CV 15.1(H) 11.1 - 14.9 % USMAN PHILLIPS Comment:Testing performed by : [facility], [address] [place] [address] NRBC abs 0.00 0.00 - 0.01 K/cumm USMAN PHILLIPS Comment:Testing performed by : [facility], [address] [place] [address] Blood 04/06/2025 8:04 AM CDT 04/06/2025 8:09 AM CDT us David Santiago MD LAB BLOOD ORDERABLES Edited Resu lt - Final [facility]MAN [facility] Department of Laboratories [place] [id number] * (ABNORMAL) Manual Differential (04/06/2025 8:04 AM CDT) Cells Counted 200 Comment:Testing performed by : [facility], [address] [place] [address] Neutrophil abs 2.84 1.50 - 6.50 K/cumm USMAN PHILLIPS Comment:Testing performed by : [facility], [address] [place] [address] Lymphocyte abs 2.56 0.80 - 3.30 K/cumm USMAN PHILLIPS Comment:Testing performed by : [facility], [address] [place] [phone] Monocyte abs 0.71 0.20 - 0.80 K/cumm [facility] Comment:Testing performed by : [facility], [facility] [place] [address] Eosinophil abs 0.50 0.00 - 0.50 K/cumm [facility] Comment:Testing performed by : [facility], [address] [place] [phone] Basophil abs 0.21(H) 0.00 - 0.10 K/cumm [facility] Comment:Testing performed by : [facility], [address] [place] [phone] Neutrophil pct 40.0 % [facility] Comment: Interpretive Data Percent cell count reference ranges are not reported, since discordance with absolute values may lead to misinterpretation of CBC data. Current Interpretive Data was last revised on 2018. Testing performed by: [facility], [address] [place] [phone] Lymphocyte pct 36.0 % [facility] Comment: Interpretive Data Percent cell count reference ranges are not reported, since discordance with absolute values may lead to misinterpretation of CBC data. Current Interpretive Data was last revised on 2018. Testing performed by: [facility], [address] [place] [phone] Monocyte pct 10.0 % [facility] Comment: Interpretive Data Percent cell count reference ranges are not reported, since discordance with absolute values may lead to misinterpretation of CBC data. Current Interpretive Data was last revised on 2018. Testing performed by: [facility], [address] [place] [phone] Eosinophil pct 7.0 % [facility] Comment: Interpretive Data Percent cell count reference ranges are not reported, since discordance with absolute values may lead to misinterpretation of CBC data. Current Interpretive Data was last revised on 2018. Testing performed by: [facility], [address] [place] [phone] Basophil pct 3.0 % [facility] Comment: Interpretive Data Percent cell count reference ranges are not reported, since discordance with absolute values may lead to misinterpretation of CBC data. Current Interpretive Data was last revised on 2018. Testing performed by: [facility], [facility] [place] [address] Myelocyte pct 1.0(H) 0.0 - 0.0 % [facility] Comment:Testing performed by : [facility], [address] [place] [phone] Variant lymph pct 5.0(H) 0.0 - 0.0 % [facility] Comment:Testing performed by : [facility], [address] [place] [phone] RBC morphology Normal [facility] Comment:Testing performed by : [facility], [address] [place], [place] [phone] Platelet estimate Adequate [facility] Comment:Testing performed by : [facility], [address] [place], [place] [phone] Blood 04/06/2025 8:04 AM CDT 04/06/2025 8:09 AM CDT us David Santiago MD LAB BLOOD ORDERABLES Final Resul t [facility] Department [place] [address] * Protein electrophoresis with reflex, serum with interpretation (04/06/2025 8:04 AM CDT) Protein, sr 6.8 6.2 - 8.2 g/dL Albumin 4.3 3.2 - 5.0 g/dL [facility] Alpha-1 globulin 0.3 0.2 - 0.4 g/dL [facility] Alpha-2 globulin 1.0 0.5 - 1.0 g/dL [facility] Beta-1 globulin 0.4 0.3 - 0.6 g/dL [facility] Beta-2 globulin 0.3 0.2 - 0.6 g/dL [facility] Gamma globulin 0.5 0.5 - 1.7 g/dL [facility] SPEP interp Please see comment [facility] Comment: No apparent monoclonal peak Reviewed and signed by Jonatan Astorga MD, PhD 04/07/2025 Blood 04/06/2025 8:04 AM CDT 04/06/2025 9:12 AM CDT us David Santiago MD LAB BLOOD ORDERABLES Final Resul t Performing Organization Address City[facility] Co de Phone Number [facility] Department [place] [address] * eGFR (04/06/2025 7:04 AM CDT) eGFR [...] LAB BLOOD ORDERABLES Final Resul t [facility]MAN [facility] Department [place] [address] * Lactate dehydrogenase (LD) (04/06/2025 7:04 AM CDT) Lactate dehydrogenase (LDH) 142 100 - 250 Units/L Blood 04/06/2025 7:04 AM CDT 04/06/2025 8:10 AM CDT David Santiago MD LAB BLOOD ORDERABLES Final Resul t Performing Organization Address [facility] de Phone Number [facility] [place] [address] * (ABNORMAL) IgA (04/06/2025 7:04 AM CDT) Pathologist [facility] Immunoglobulin A <50(L) 70 - 400 mg/dL Blood 04/06/2025 7:04 AM CDT 04/06/2025 8:31 AM CDT David Santiago MD LAB BLOOD ORDERABLES Final Resul t Performing Organization Address [facility] de Phone Number [facility] [place] [address] * (ABNORMAL) IgM (04/06/2025 7:04 AM CDT) Pathologist [facility] Immunoglobulin M <25(L) 40 - 230 mg/dL Blood 04/06/2025 7:04 AM CDT 04/06/2025 8:31 AM CDT David Santiago MD LAB BLOOD ORDERABLES Final Resul t Performing Organization Address [facility] de Phone Number [facility] [place] [address] * (ABNORMAL) IgG (04/06/2025 7:04 AM CDT) Pathologist [facility] Immunoglobulin G 600(L) 700 - 1,600 mg/dL Blood 04/06/2025 7:04 AM CDT 04/06/2025 8:31 AM CDT David Santiago MD LAB BLOOD ORDERABLES Final Resul t Performing Organization Address City/[facility] Co de Phone Number [facility] [place] [address] * (ABNORMAL) Beta 2 microglobulin, serum (04/06/2025 7:04 AM CDT) Beta 2 microglobulin, bld 2.60(H) 1.00 - 2.50 mg/L Comment: Interpretive Data The Nahum Beta-2 microglobulin assay procedure was used. Results from different manufacturers or methods may not be comparable. Serial testing should be performed using the same method. Blood 04/06/2025 7:04 AM CDT 04/06/2025 8:31 AM CDT David Santiago MD LAB BLOOD ORDERABLES Final Resul t Performing Organization Address [facility] de Phone Number [facility] Department [place] [address] * (ABNORMAL) Comprehensive metabolic panel (04/06/2025 7:04 AM CDT) Pathologist [facility] Sodium 140 135 - 145 mmol/L Potassium, pl 3.9 3.3 - 4.9 mmol/L [facility] Chloride 106 97 - 110 mmol/L [facility] CO2 23 22 - 32 mmol/L [facility] Anion gap 11 2 - 15 mmol/L [facility] BUN 15 6 - 25 mg/dL [facility] Creatinine 0.81 0.80 - 1.30 mg/dL [facility] Glucose 169 70 - 199 mg/dL [facility] Comment: Interpretive Data Fasting [...] Calcium 9.6 8.5 - 10.3 mg/dL [facility] Bilirubin, total 0.2 0.1 - 1.2 mg/dL [facility] Protein, pl 7.1 6.5 - 8.5 g/dL [facility] Albumin 4.4 3.5 - 5.0 g/dL [facility] Alk phos 199(H) 40 - 130 Units/L [facility] ALT 36 7 - 55 Units/L [facility] AST 19 10 - 50 Units/L [facility] Blood 04/06/2025 7:04 AM CDT 04/06/2025 8:10 AM CDT us David Santiago MD LAB BLOOD ORDERABLES Final Resul t [facility] Department [place] [address] from Last 3 Months Insurance [facility] [id number] [place] [id number] Care Teams Counter Stitcher Relationship Specialty Start Date End Date Matthew Sorenson PA [address] [place] [address] PCP - General Family Practice 05/04/23 Matthew Sorenson PA [address] [place] [address] Family Practice 09/12/22
--- OUTSIDE RECORDS SUMMARY | 2025-06-16 08:51 | XMS_ITS | Encounter Summary ---
Author Organization [facility] Address [address] [address] Care Team Providers Care Five Roll Refiner Batch Mixer Name Role Phone Matthew Sorenson Primary Care Provider [phone] Jose Luis Brooks MD Unavailable [phone] Abelardo Presley MD Unavailable [phone] Bo Francisco MD Unavailable [phone] Angie Rogers MD Unavailable Katie GutierrezD Unavailable Unavaila Jaja Casillas RN Unavailable Unavailable Abimbola Waters PASSENGER SERVICE MANAGER-TRIAGE TECHNICIAN Unavailable [phone] Perri Dexter PASSENGER SERVICE MANAGER-TRIAGE TECHNICIAN Unavailable [phone] Marilyn Bennett RN Unavailable Unavailable Erasmo Roberson RN Unavailable Unavailable Alexandra Cota RN Unavailable Unavailable Alda Braswell Unavailable Unavailable Lucia Sharif LCSW Unavailable Unavailab le Reason for Visit * Reason Onset Date Comments MEDICATION REFILL 10/20/2024 Encounter Details Date Type Department Care Team (Late st Contact Info) Description 10/20/2024 Refill [facility] - Hematology/Oncology [address] [place] [address] Jose Luis Brooks MD [address] [facility] [place] [address] MEDICATION REFILL Social History Tobacco [...] Recorded Patient Health Questionnaire-2 Score 1 08/12/2024 [facility] - [...] in a long term (including now)? 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 CDIFF Under Investigation 01/13/2025 01/13/2025 7:19 PM CDT COVID-19 Under Investigation 01/13/2025 01/13/2025 01/13/2025 4:01 PM CDT COVID-19 Under Investigation 02/12/2025 02/12/2025 02/12/2025 4:07 PM CDT documented as of this encounter Care Teams Five Roll Refiner Batch Mixer Relationship Specialty Start Date End Date Matthew Sorenson PA [address] [place] [address] PCP - General 02/02/22 Jose Luis Brooks MD [address] [place] [address] Heel Sewer/Oncologis t Hematology and Oncology 08/29/24 05/27/25 Abelardo Presley MD [address] [place] [phone] Hematology and Oncology 08/29/24 03/04/25 Bo Francisco MD [address] [place] [phone] Hematology and Oncology 08/29/24 03/04/25 Angie Rogers MD [address] [place] [phone] Physician Hematology and Oncology 08/29/24 03/04/25 Katie Gutierrez, PharmD 08/29/24 03/04/25 Jaja Rayo RN Registered Nurse 08/29/24 03/04/25 Abimbola Waters APRN-CNP [facility] [place] [address] Nurse Practitioner Nurse Practitioner 08/29/24 03/04/25 Perri Dexter APRN-CNP [address] [place] [phone] Nurse Practitioner Nurse Practitioner 08/29/24 03/04/25 Marilyn Bennett, RN Coordinator 08/29/24 05/27/25 Erasmo Roberson, RN Registered Nurse 08/29/24 03/04/25 Alexandra Cota, RN Registered Nurse 08/29/24 03/04/25 Alda Braswell 08/29/24 03/04/25 Lucia Sharif, ENVIRONMENTAL COMMUNICATIONS SPECIALIST Sociocultural Anthropology Professor 08/29/24 03/04/25 documented as of this encounter
--- OUTSIDE RECORDS SUMMARY | 2025-06-16 08:51 | XMS_ITS | Encounter Summary ---
Author Organization [facility] Address [address] [facility] [place] [address] Care Team Providers Care Roll Cutter Name Role Phone Matthew Sorenson Primary Care Provider [phone] Jose Luis Brooks MD Unavailable [phone] Abelardo Presley MD Unavailable [phone] Bo Francisco MD Unavailable [phone] Angie Rogers MD Unavailable Katie GutierrezD Unavailable Unavaila Jaja Casillas RN Unavailable Unavailable Abimbola Waters DIRECTOR PARK-S3B MULTI SENSOR OPERATOR Unavailable Perri Dexter DIRECTOR PARK-S3B MULTI SENSOR OPERATOR Unavailable [phone] Marilyn Bennett RN Unavailable Unavailable Erasmo Roberson RN Unavailable Unavailable Alexandra Cota RN Unavailable Unavailable Alda Braswell Unavailable Unavailable Lucia Sharif LCSW Unavailable Unavailab le Reason for Visit * Reason Onset Date Comments MEDICATION REFILL 10/20/2024 Encounter Details Date Type Department Care Team (Late st Contact Info) Description 10/20/2024 Refill [facility] [address] [place] [address] Gina Denton MD [address] [place] [address] MEDICATION REFILL Social History Tobacco Use Types [...] Recorded Patient Health Questionnaire-2 Score 1 08/12/2024 [facility] - Occupational [...] to sleep or slept in a senior living (including now)? No 06/04/2024 Housing Stability Vital [...] time in the past 12 m [facility], were you homeless or living in a senior living (including now)? 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 Gender Identity Not on file Sexual [...] documented as of this encounter Care Teams Roll Cutter Relationship Specialty Start Date End Date Matthew Sorenson PA [address] [place] [address] PCP - General 02/02/22 Jose Luis Brooks MD [facility] [place] [address] Traffic Analyst/Oncologis t Hematology and Oncology 08/29/24 05/27/25 Abelardo Presley MD [facility] [place] [address] Hematology and Oncology 08/29/24 03/04/25 Bo Francisco MD [address] [place] [phone] Hematology and Oncology 08/29/24 03/04/25 Angie Rogers MD [address] [place] [phone] Physician Hematology and Oncology 08/29/24 03/04/25 Katie Gutierrez, PharmD 08/29/24 03/04/25 Jaja Rayo RN Registered Nurse 08/29/24 03/04/25 Abimbola Waters APRN-CNP [address] [place] [address] Nurse Practitioner Nurse Practitioner 08/29/24 03/04/25 Perri Dexter APRN-CNP [address] [place] [phone] Nurse Practitioner Nurse Practitioner 08/29/24 03/04/25 Marilyn Bennett, LOLI Coordinator 08/29/24 05/27/25 Erasmo Roberson, RN Registered Nurse 08/29/24 03/04/25 Alexandra Cota, RN Registered Nurse 08/29/24 03/04/25 Alda Braswell 08/29/24 03/04/25 Lucia Sharif, COLLEGE PROFESSOR Corrugator 08/29/24 03/04/25 documented as of this encounter
--- OUTSIDE RECORDS SUMMARY | 2025-06-16 08:51 | XMS_ITS ---
Author Organization [facility] Address [address] [place] [address] Care Team Providers Care Spray Ii Painter Name Role Phone Matthew Sorenson Primary Care Provider [phone] Active Problems Problem Noted Date Diagnosed Date [...]
--- OUTSIDE RECORDS SUMMARY | 2025-06-16 08:51 | XMS_ITS | Clinical Summary ---
Author Organization [facility] [employer] Address [address] [place] [place] [address] Care Team Providers Care Sr. Social Media & Mobile Manager Name Role Phone Matthew Sorenson Primary Care Provider Source Comments [facility],non-owned Affiliates and Associated Physician Practices is amultiple site organization consisting of ambulatory clinics and hospital sitesin [place], [place], [place] and [place]. This disclosure is being madepursuant to the Care Everywhere program and may not contain all information available regarding this patient. 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 01/27/20 25 2024 Discontin ued(List Clean-Up) doxycycline hyclate (Vibramycin) 100 MG capsule Take 1 (one) capsule by mouth 01/20/20 25 2024 Discontin ued(List Clean-Up) methylPREDNISo lone (Medrol) 4 MG tablet Take 2 (two) tablets by mouth daily with breakfast for 1 day, THEN 1 (one) tablet daily with breakfast for 1 day. 3 tablet 06/01/20 25 2024 Active Problems Problem Noted Date Diagnosed Date [...] Encounters Date Type Department Care Team Description 06/15/2025 8:30 AM CDT - 06/15/2025 11:59 PM CDT Hospital Encounter [facility] [address] [place] [address] Robb Wakefield MD Discharge Disposition: Home or Self Care 06/05/2025 Telephone Transitional Care at [address] [phone] Rena Solano, LOLI Missed Appointment 06/02/2025 Telephone Transitional Care at [address] [address] Malu Noyola, [place] Question 06/01/2025 Telephone Transitional Care at [address] [address] Rena Solano, cafe associate 06/01/2025 Travel 05/28/2025 Travel 05/27/2025 11:33 PM CDT - 05/31/2025 9:25 AM CDT Hospital Encounter [facility] [address] [place] [phone] Cristian Garcia MD Kent, Saida A, MD Felgenhauer, Joshua, MD Emergency Medicine Discharge Disposition: Home or Self Care 05/04/2025 Refill [facility] [address] [place] [phone] Perri Dexter APRN-CNP Refill Request 04/03/2025 Travel 03/26/2025 Refill [facility] [address] [place] [phone] Perri Dexter APRN-CNP Refill Request 03/24/2025 Refill [facility] [address] [place] [phone] Jose Luis Brooks MD Refill Request 03/18/2025 Travel from Last 3 Months Family History Medical [...] Recorded Patient Health Questionnaire-2 Score 0 11/20/2024 [facility] - Occupational Stress [...] [facility] time in the [facility] were you [facility] or living in a usp (including now)? 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 Gender Identity Not on file Sexual [...] 05/27/2025 11:30 PM CDT Plan of Treatment Health Maintenance Due [...] Completed 11/20/2024, 08/12/20 HEPATITIS C SCREENING Completed 05/29/2025 , 05/27/2025, 02/26/2025, Additional history exists HIB VACCINE Aged Out [...] this topic Medical Devices Implanted Type Area Supervisor Drying And Softening Device Identifier Shelf Expiration Date Model / Serial / Lot Kit Spnl 5.8mm Spinejack Implanted:Qty: 1 on 07/22/2024 by Arya Rm MD at [facility] N/A: Spine Lumbar Dottie Spine 10/28/2024 [id number] / / [id number] Kit Bone Cmnt Vertaplex Hv Autoplex Wo Implanted:Qty: 1 on 07/22/2024 by Arya Rm MD at [facility] N/A: Spine Lumbar Dottie Spine 05/29/2025 [id number] / / [id number] Port Implinfn Powerport Clrvu Argd Nya Implanted:Qty: 1 on 08/20/2024 by Vic Callahan MD at [facility] Right: Chest Wall Bard Peripheral Vascular 08/28/2025 [id number] / / [id number] Mixer Bone Cmnt Kyphon C20gm Ll Fit [...] Health Center N/A: Spine Lumbar Osteotech Inc [id number] / / Ezekiel Spnl 500mm 5.5mm Cd Hzn Str Ti Ln Cp Implanted:Qty: 1 on 12/02/2024 by Arya Rm MD at [facility] N/A: Spine Lumbar Medtronic Inc [id number] / / Graft Bone Grftn Dbm Aspt 5x2.5cm Post Implanted:Qty: 1 on 12/02/2024 by Arya Rm MD at [facility] N/A: Spine Lumbar Medtronic Inc [id number] / / Screw Set Ti Spnl Brk Off Cd Hzn Nonster Implanted:Qty: 8 on 12/02/2024 by Arya Rm MD at [facility] N/A: Spine Lumbar Medtronic Inc [id number] / / Screw 7.5mm 55mm Ma Spne Solera Cd Hzn Implanted:Qty: 2 on 12/02/2024 by Arya Rm MD at [facility] N/A: Spine Lumbar Medtronic Inc [id number] / / Screw 7.5mm 50mm Ma Spne Solera Cd Hzn Implanted:Qty: 6 on 12/02/2024 by Arya Rm MD at [facility] Medtronic Inc [id number] / / Slnt Dura Duraseal Pg Trilysine Amine 5 Implanted:Qty: 1 on 12/02/2024 by Arya Rm MD at [facility] N/A: Spine Lumbar Integra Mango GamesciTuizzi Thang / / Explanted Type Area Supervisor Drying And Softening Device Identifier Shelf Expiration Date Model / Serial / Lot Kit Osteocool Srg 10ga Bone Acc Explanted:Qty: 2 on 07/22/2024 by Arya Rm MD at [facility] N/A: Spine Lumbar Medtronic Inc [id number] / / [id number] Description:Access device, n ot an implant. No other options in system Probe 17ga 20mm Rf Eltx Osteocool 2mm Explanted:Qty: 1 on 07/22/2024 by Arya Rm MD at [facility] N/A: Spine Lumbar Medtronic Inc 03/26/2027 [id number] / / [id number] Description:Access device, n ot an implant. No other options in system Procedures Procedure Name Priority Date/Time Associated Diagnosis Comments MRI LUMBAR SPINE WO CONTRAST STAT 06/15/2025 10:10 AM CDT Multiple myeloma, remission status unspecified (HCC) DIFFERENTIAL MANUAL AM Draw 05/31/2025 6 :56 [...] OF CARE Routine 05/29/2025 11:42 AM CDT HEPATITIS C RNA QUANTITATIVE Routine 05/29/2025 7:04 AM CDT HEMOGLOBIN A1C Routine 05/29/2025 7:04 [...] AUTO DIFFERENTIAL STAT 05/28/2025 1:26 AM CDT MICROALB/CREAT RATIO URINE RANDOM PANEL Routine 06/28/2024 6:31 AM CDT Hyperglycemia HIV-1 HIV-2 ANTIBODY + HIV P24 AG PANEL STAT 06/06/2024 11:59 AM CDT from Last 3 Months or Most Recently Relevant to Health Maintenance Results * MRI Lumbar Spine Wo Contrast [...] DATE/TIME OF EXAM: 06/15/2025 10:11 AM, LOCATION [facility] INDICATION: C90.00: Multiple myeloma, remission status unspecified [...] DATE/TIME OF EXAM: 06/15/2025 10:11 AM, LOCATION [facility] INDICATION: C90.00: Multiple myeloma, remission status unspecified ([facility]) ADDITIONAL CLINICAL INFORMATION: Ordering Provider Reason For [...] Luda Eubanks MD on 06/15/2025 2:24 PM us Robb Wakefield MD MR ORDERABLES Final Resu lt * (ABNORMAL) DIFFERENTIAL MANUAL (05/31/2025 6:56 AM CDT) Only the most recent of2 resultswithin the time period is included. Neutrophil % 43 41 - 74 % 05/31/2025 8:08 AM [facility] Lymphocyte % 48(H) 17 - 47 % 05/31/2025 8:08 AM [facility] Monocyte % 7 3 - 11 % 05/31/2025 8:08 AM [facility] Basophil % 2 0 - 2 % 05/31/2025 8:08 AM [facility] Neutrophil Absolute 5.38 1.60 - 7.50 x10E9/L 05/31/2025 8:08 AM [facility] Lymphocyte Absolute 6.00(H) 1.00 - 4.40 x10E9/L 05/31/2025 8:08 AM [facility] Monocyte Absolute 0.88 0.15 - 1.00 x10E9/L 05/31/2025 8:08 AM [facility] Basophil Absolute 0.25(H) 0.00 - 0.13 x10E9/L 05/31/2025 8:08 AM [facility] RBC Morphology REVIEWED 05/31/2025 8:08 AM [facility] Large Platelets PRESENT(A) (none) 05/31/2025 8:08 AM [facility] Blood BLOOD SPECIMEN / Unknown Lab Venipuncture / Unknown 05/31/2025 6:56 AM CDT 05/31/2025 7:31 AM CDT us Cristian Garcia MD LAB - HEMATOLOGY ORDERABLES F inal Result [facility] [address] [place] [phone], [facility] [phone] * (ABNORMAL) CBC W AUTO DIFFERENTIAL (05/31/2025 6:56 AM CDT) Only the most recent of4 resultswithin the time period is included. WBC 12.5(H) 4.0 - 10.7 x10E9/L 05/31/2025 8:08 AM [facility] RBC Count 5.46 4.30 - 5.80 x10E12/L 05/31/2025 8:08 AM [facility] Hemoglobin 15.5 13.3 - 17.5 g/dL 05/31/2025 8:08 AM [facility] Hematocrit 46.6 38.7 - 51.1 % 05/31/2025 8:08 AM [facility] MCV 85.3 80.0 - 98.0 fL 05/31/2025 8:08 AM [facility] MCH 28.4 26.7 - 33.6 pg 05/31/2025 8:08 AM [facility] MCHC 33.3 31.7 - 36.3 g/dL 05/31/2025 8:08 AM [facility] RDW-CV 15.1(H) 11.3 - 14.8 % 05/31/2025 8:08 AM [facility] Platelet Count 216 150 - 420 x10E9/L 05/31/2025 8:08 AM [facility] MPV 11.0 7.8 - 11.4 fL 05/31/2025 8:08 AM [facility] Blood BLOOD SPECIMEN / Unknown Lab Venipuncture / Unknown 05/31/2025 6:56 AM CDT 05/31/2025 7:31 AM CDT us Cristian Garcia MD LAB - HEMATOLOGY ORDERABLES F inal Result Performing Organization Address City/State/[facility] Co de Phone Number [address] [address], [facility] [phone] * (ABNORMAL) RENAL FUNCTION PANEL (05/31/2025 6:56 AM CDT) Only the most recent of3 resultswithin the time period is included. BUN 14 7 - 26 mg/dL 05/31/2025 8:02 AM [facility] Creatinine 0.74 0.71 - 1.16 mg/dL 05/31/2025 8:02 AM [facility] Sodium 138 136 - 145 mmol/L 05/31/2025 8:02 AM [facility] Potassium 3.8 3.5 - 4.5 mmol/L 05/31/2025 8:02 AM [facility] Chloride 108(H) 98 - 107 mmol/L 05/31/2025 8:02 AM [facility] CO2 26 22 - 29 mmol/L 05/31/2025 8:02 AM [facility] Glucose 120(H) 70 - 99 mg/dL 05/31/2025 8:02 AM [facility] Albumin 4.0 3.4 - 5.0 g/dL 05/31/2025 8:02 AM [facility] Calcium 8.7 8.4 - 10.2 mg/dL 05/31/2025 8:02 AM [facility] Phosphorus 3.5 2.8 - 5.1 mg/dL 05/31/2025 8:02 AM [facility] Anion Gap 4(L) 6 - 16 05/31/2025 8:02 AM [facility] BUN/Creatinine Ratio 19 7 - 23 05/31/2025 8:02 AM [facility] Osmolality Calculated 288 275 - 295 mOsm/kg 05/31/2025 8:02 AM [facility] eGFR by CKD-EPI >90 >=90 mL/min/1.7 3 m2 05/31/2025 8:02 AM [facility] Comment:Estimated Glomerular Filtration Rate (eGFR) calculated using the CKD-EPI Creatinine Equation (2020), per the National Kidney Foundation and [place] Society of Nephrology recommendations. Blood BLOOD SPECIMEN / Unknown Lab Venipuncture / Unknown 05/31/2025 6:56 AM CDT 05/31/2025 7:31 AM CDT us Cristian Garcia MD LAB - CHEMISTRY ORDERABLES Fi nal Result [facility] [address] [place] [address], [place] [phone] * MAGNESIUM BLOOD (05/31/2025 6:56 AM CDT) Only the most recent of3 resultswithin the time period is included. Magnesium 1.9 1.6 - 2.6 mg/dL 05/31/2025 8:02 AM CDT [facility] Blood BLOOD SPECIMEN / Unknown Lab Venipuncture / Unknown 05/31/2025 6:56 AM CDT 05/31/2025 7:31 AM CDT Cristian Garcia MD LAB - CHEMISTRY ORDERABLES Fi nal Result [address] [address], [place] [phone] * GLUCOSE - POINT OF CARE (05/31/2025 6:14 AM CDT) Only the most recent of10 resultswithin the time period is included. [facility] Glucose WB/POC 98 70 - 99 mg/dL 05/31/2025 6:18 AM CDT [facility] Specimen Type Arterial/C apillary 05/31/2025 6:18 AM CDT [facility] Blood BLOOD SPECIMEN / Unknown 05/31/2025 6:14 AM CDT 05/31/2025 6:18 AM CDT us Robb Wakefield MD LAB - POINT OF CARE ORDERA BLES Final Result Performing Organization Address City/[facility]/ZIP Co de Phone Number [address] [address], [place] [phone] * HEPATITIS C RNA QUANTITATIVE (05/29/2025 7:04 AM CDT) [facility] Hepatitis C RNA PCR, Interp Not detected Not detected 06/01/2025 10:14 AM CDT [facility] Hepatitis C Quant by PCR, Log NA log IU/mL 06/01/2025 10:14 AM CDT [facility] Blood BLOOD SPECIMEN / Unknown Lab Venipuncture / Unknown 05/29/2025 7:04 AM CDT 05/29/2025 8:58 AM CDT Narrative [facility] - 06/01/2025 10:14 AM CDT The Hepatitis C viral (HCV) RNA analysis utilized a serum sample, real-time reverse teenage babysitter PCR, and is reported as Not Detected, Detected (<15 IU/mL), Quantity (IU/mL) or >100,000,000 IU/mL. The analytic sensitivity (LOD) of the assay is 15 IU/mL. The linear range is from 15 IU/mL to 100,000,000 IU/mL. Values less than 15 IU/mL are reported as Detected (<15 IU/mL). Values greater than 100,000,000 IU/mL are reported as >100,000,000 IU/mL. The detection/quantitation of HCV RNA in serum is based on the isolation of HCV RNA with reverse teenage babysitter of genomic HCV RNA followed by real-time PCR in the presence of an unrelated RNA internal control. The internal control ensures that RNA is isolated, and that no general significant inhibitors of the RT-PCR process are present. The analysis was performed using a U.S. FDA approved test methodology Nahum gomez HCV. Robb Wakefield MD LAB - CHEMISTRY ORDERABLES Final Result [facility] [address] [place], [place] [address], [facility] [phone] * (ABNORMAL) HEMOGLOBIN A1C (05/29/2025 7:04 AM CDT) Hemoglobin A1c 6.1(H) <=5.6 % 05/29/2025 11:58 AM CDT [facility] Estimated Average Glucose 128 mg/dL 05/29/2025 11:58 AM T [facility] Comment: HbA1c Interpretation: Normal : < 5.7% Pre-diabetes: 5.7-6.4% Diabetes: Equal to or greater than 6.5% Test results diagnostic of diabetes should be repeated for confirmation. Treatment target values recommended by ADA and other clinical organizations should be used to evaluate metabolic control in patients. Reference: [place] Diabetes Association, Standards of Care in Diabetes [...] LAB - CHEMISTRY ORDERABLES Fi nal Result [address] [address], [place] [phone] * (ABNORMAL) C-REACTIVE PROTEIN (05/28/2025 1:59 PM CDT) C-Reactive Protein 0.6(H) <=0.5 mg/dL 05/28/2025 2:38 PM CDT [facility] Blood BLOOD SPECIMEN / Unknown Venipuncture / Unknown 05/28/2025 1:59 PM CDT 05/28/2025 2:10 PM CDT us Robb Wakefield MD LAB - CHEMISTRY ORDERABLES Final Result Performing Organization Address [facility]/ZIP Co de Phone Number [address] [address], [place] [phone] * ERYTHROCYTE SEDIMENTATION RATE (05/28/2025 1:59 PM CDT) Erythrocyte Sedimentation Rate Westergren 8 0 - 15 MM/HR 05/28/2025 2:32 PM CDT [facility] Blood BLOOD SPECIMEN / Unknown Venipuncture / Unknown 05/28/2025 1:59 PM CDT 05/28/2025 2:10 PM CDT us Robb Wakefield MD LAB - HEMATOLOGY ORDERABLE S Final Result Performing Organization Address [facility]/ZIP Co de Phone Number [address] [address], [place] [phone] * CT Lumbar Spine Wo Contrast (05/28/2025 [...] correlation for possible infection. > Dictated by Medical Imaging Director I, Natan Modi MD have personally reviewed and interpreted this examination/study. > Interpreting Provider: Natan Modi MD on 05/28/2025 10:09 AM Narrative 05/28/2025 10:09 AM CDT PROCEDURE: CT THORACIC SPINE WO CONTRAST, CT LUMBAR SPINE WO CONTRAST, DATE/TIME OF EXAM: 05/28/2025 3:39 AM, LOCATION [facility] INDICATION: M54.6: Acute midline thoracic back pain [...] DATE/TIME OF EXAM: 05/28/2025 3:39 AM, LOCATION [facility] INDICATION: M54.6: Acute midline thoracic back pain [...] L3 on L4. Redemonstration of a chronic F7syznefteo body fracture status post kyphoplasty. An irregular lytic lesion and the sclerotic changes with cortical enlargement are noted in the F5lsuivkmrw body. No acute fracture identified. Mild to [...] correlation for possible infection. > Dictated by Medical Imaging Director I, Natan Modi MD have personally reviewed [...] correlation for possible infection. > Dictated by Medical Imaging Director I, Natan Modi MD have personally reviewed and interpreted this examination/study. > Interpreting Provider: Natan Modi MD on 05/28/2025 10:09 AM Narrative 05/28/2025 10:09 AM CDT PROCEDURE: CT THORACIC SPINE WO CONTRAST, CT LUMBAR SPINE WO CONTRAST, DATE/TIME OF EXAM: 05/28/2025 3:39 AM, LOCATION [facility] INDICATION: M54.6: Acute midline thoracic back pain [...] DATE/TIME OF EXAM: 05/28/2025 3:39 AM, LOCATION [facility] INDICATION: M54.6: Acute midline thoracic back pain [...] L3 on L4. Redemonstration of a chronic Z9ygvmmqphj body fracture status post kyphoplasty. An irregular lytic lesion and the sclerotic changes with cortical enlargement are noted in the Z1rlaxsoavo body. No acute fracture identified. Mild to [...] correlation for possible infection. > Dictated by Medical Imaging Director I, Natan Modi MD have personally reviewed and interpreted this examination/study. > Interpreting Provider: Natan Modi MD on 05/28/2025 10:09 AM Cristian Garcia MD CT ORDERABLES Final Result * TYPE + SCREEN PANEL (05/28/2025 1:26 AM CDT) [facility] Antibody Screen NEG 2:26 AM CDT [facility] ABO Rh O POS 05/28/2025 2:26 AM CDT [facility] Blood Bank BLOOD SPECIMEN / Unknown Venipuncture / Unknown 05/28/2025 1:26 AM CDT 05/28/2025 1:46 AM CDT Cristian Garcia MD LAB - BLOOD BANK ORDERABLES F inal Result [facility] [address] [place] [address], [facility] [phone] * (ABNORMAL) COMPREHENSIVE METABOLIC PANEL (05/28/2025 1:26 AM CDT) [facility] BUN 14 7 - 26 mg/dL 05/28/2025 2:10 AM CDT [facility] Creatinine 0.86 0.71 - 1.16 mg/dL 05/28/2025 2:10 AM T [facility] Sodium 140 136 - 145 mmol/L 05/28/2025 2:10 AM T [facility] Potassium 3.9 3.5 - 4.5 mmol/L 05/28/2025 2:10 AM T [facility] Chloride 110(H) 98 - 107 mmol/L 05/28/2025 2:10 AM [facility] CO2 24 22 - 29 mmol/L 05/28/2025 2:10 AM [facility] Glucose 107(H) 70 - 99 mg/dL 05/28/2025 2:10 AM [facility] Calcium 8.9 8.4 - 10.2 mg/dL 05/28/2025 2:10 AM [facility] Protein Total 6.3 6.0 - 8.3 g/dL 05/28/2025 2:10 AM [facility] Albumin 4.3 3.4 - 5.0 g/dL 05/28/2025 2:10 AM [facility] Bilirubin Total 0.3 0.2 - 1.2 mg/dL 05/28/2025 2:10 AM [facility] Alkaline Phosphatase 129 40 - 150 U/L 05/28/2025 2:10 AM [facility] ALT 23 5 - 55 U/L 05/28/2025 2:10 AM [facility] AST 25 5 - 34 U/L 05/28/2025 2:10 AM [facility] Anion Gap 6 6 - 16 05/28/2025 2:10 AM [facility] BUN/Creatinine Ratio 16 7 - 23 05/28/2025 2:10 AM [facility] Osmolality Calculated 291 275 - 295 mOsm/kg 05/28/2025 2:10 AM [facility] Albumin/Globulin Ratio 2.2 1.1 - 2.3 05/28/2025 2:10 AM [facility] eGFR by CKD-EPI >90 >=90 mL/min/1.7 3 m2 05/28/2025 2:10 AM [facility] Comment:Estimated Glomerular Filtration Rate (eGFR) calculated using the CKD-EPI Creatinine Equation (2020), per the National Kidney Foundation and [place] Society of Nephrology recommendations. Blood BLOOD SPECIMEN / Unknown Venipuncture / Unknown 05/28/2025 1:26 AM CDT 05/28/2025 1:39 AM [facility] us Cristian Garcia MD LAB - CHEMISTRY ORDERABLES Fi nal Result [facility] [address] [place] [address], [facility] [phone] * MICROALB/CREAT RATIO URINE RANDOM PANEL (06/28/2024 6:31 AM CDT) Albumin Random Urine <5.0 Not Established ug/mL 06/28/2024 9:49 PM CDT [facility] Creatinine Urine 82.62 Not Established mg/dL 06/28/2024 9:49 PM CDT [facility] Urine Albumin/Creati nine Ratio <6 <30 mg/g 06/28/2024 9:49 PM CDT [facility] Albumin/Creati nine Ratio Urine See Comment <30 mg/g 06/28/2024 9:49 PM CDT [facility] Comment:Unable to calculate the Urine Albumin/Creatinine Ratio due to one or more analyte concentration(s) being outside the measuring limits of the instrument. Urine URINE SPECIMEN OBTAINED BY CLEAN CATCH PROCEDURE / Unknown Collection / Unknown 06/28/2024 6:31 AM CDT 06/28/2024 7:54 PM CDT Robb Gomez MD LAB - URINE CHEMISTRY ORDERA BLES Final Result [facility] [address] [place] [address], [facility] [phone] * HIV-1 HIV-2 ANTIBODY + HIV P24 AG PANEL (06/06/2024 11:59 AM CDT) Pathologist [facility] HIV Antigen/Antibod y 1 & 2 Non-reacti ve Non-react khari 06/06/2024 12:58 PM CDT [facility] Comment:No Laboratory eviden ce of HIV infection. Blood BLOOD SPECIMEN / Unknown Lab Venipuncture / Unknown 06/06/2024 11:59 AM CDT 06/06/2024 12:07 PM CDT us Gina Burt MD LAB - CHEMISTRY ORDERABLES Final Result [facility] [address] [place] [address], [facility] [phone] from Last 3 Months or Most Recently Relevant to Health Maintenance Additional Health Concerns Infection Onset Date Last Indicated 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 Insurance MEDICAID [employer] [place] Advance Directives Documents on File Type Date Recorded Patient Scientific Laboratory Supervisor Expl anation Adv Directive/Living Will/POA 08/13/2024 1:30 [...] 10:06 PM 10/01/2024 2:14 PM Care Teams Sr. Social Media & Mobile Manager Relationship Specialty Start Date End Date Matthew Sorenson PA [address] [place] [address] PCP - General 02/02/22
[2025-06-16 09:23] LABS: Hematocrit 47.0 % (40.0-54.0); Hemoglobin 15.5 g/dL (14.0-18.0); Mean Corpuscular HGB Conc 33.0 g/dL (32-36); Mean Corpuscular Hemoglobin 28.7 pg (27.0-31.0); Mean Corpuscular Volume 87.0 fL (78.0-102.0); Platelet Count Result 212 K/mm3 (150-420); Red Blood Count 5.40 M/mm3 (4.70-6.10); White Blood Count 7.2 K/mm3 (4.8-10.8)
[2025-06-16 09:34] LABS: Alanine Aminotransferase 40 U/L (6-50); Albumin Level 4.0 g/dL (3.5-5.1); Alkaline Phosphatase 102 U/L (38-126); Anion Gap 6 mmol/L (4-12); Aspartate Amino Transferase 27 U/L (17-59); Bilirubin,Total 0.3 mg/dL (0.2-1.3); Blood Urea Nitrogen 11 mg/dL (9-20); Calcium 9.1 mg/dL (8.4-10.2); Carbon Dioxide 26 mmol/L (22-30); Chloride 106 mmol/L (98-107); Estimated CRCL calculation 158 ml/min; Estimated Glomerular Filt Rate > 60; Glucose 219 mg/dL (65-110); Osmolality Calculated 292 mOsm/kg (285-295); Potassium 3.9 mmol/L (3.4-5.0); Sodium 138 mmol/L (137-145); Total Protein 6.1 g/dL (6.3-8.2)
[2025-06-16] MEDS: FAMOTIDINE 20 MG TABLET PO (10:00)
[2025-06-16] MEDS: ACETAMINOPHEN 325 MG TABLET 650 MG PO (10:00)
[2025-06-16] MEDS: diphenhydrAMINE HCl CAP 25 MG CAPSULE PO (10:00)
[2025-06-16] MEDS: DARATUMUMAB-HYALURONIDASE-FIHJ 1,800 MG-30,000 UNITS VIAL 15 ML SUB-Q (10:51)
--- NOTE | 2025-06-16 11:06 | PC.NURSE ---
1030 Went to hand/infuse zolendronic acid infusion. IV occluded and tender. IV dc'd. Another attempted IV stick unsuccessful. Patient refuses to have another try. Daratumumab injection administered without difficulty-tolerated well. Dr. Abarca notified of Zolendronic acid infusion and reports can try next week when he comes in for cycle 1 day 22.
[2025-06-16 11:13] VITALS: BP 123/76; PULSE 80; RESP 14; TEMP 36.7; O2SAT 97
== END 2025-06-16 08:28 | disposition home or self-care (01) ==
PROVIDERS: PCP Physician Assistant; Visit Provider Internal Medicine Hematology
DX: Z51.11 Encounter for antineoplastic chemotherapy (principal); C90.00 Multiple myeloma not having achieved remission
CPT/HCPCS: 36415; 36591; 80053; 85027; 96401; A9270; J3489; J8540; J9144

== ENCOUNTER 2025-06-23 08:24 | Outpatient (CLI) | payer OTHER, SELFPAY ==
--- OUTSIDE RECORDS SUMMARY | 2025-02-19 11:37 | XMS_ITS | Encounter Summary ---
Author Organization [facility] Address [address] [place] [address] Care Team Providers Care Mobile Application Architect Name Role Phone Matthew Sorenson Primary Care Provider [phone] Jose Luis Brooks MD Unavailable [phone] Abelardo Presley MD Unavailable [phone] Bo Francisco MD Unavailable [phone] Angie Rogers MD Unavailable Katie GutierrezD Unavailable Unavaila Jaja Casillas RN Unavailable Unavailable Abimbola Waters PRODUCTION FLOATER-TOLL RELIEF OPERATOR Unavailable [phone] Perri Dexter PRODUCTION FLOATER-TOLL RELIEF OPERATOR Unavailable [phone] Marilyn Bennett RN Unavailable Unavailable Erasmo Roberson RN Unavailable Unavailable Alexandra Cota RN Unavailable Unavailable Alda Braswell Unavailable Unavailable Lucia Sharif LCSW Unavailable Unavailab le Reason for Referral * (Routine) - Open Specialty Diagnoses / Procedures Referred By Contac t Referred To Contact Procedures Follow up with provider Juan Valencia MD [address] [place] [address] Phone: tel: fax: Referral ID Status Reason Start Date Expiration Date Visits Re quested Visits Authorized [id number] Open 02/19/2025 02/19/2026 1 1 * Radiology Services (Routine) - Open Specialty Diagnoses / Procedures Referred By Contac t Referred To Contact Diagnoses Hepatitis C virus infection without hepatic coma, unspecified chronicity History of multiple myeloma Procedures CT US Guided Needle Placement IR Perc Liver Biopsy Juan Valencia MD [address] [facility] [address]L [place] [address] Phone: tel: fax: [facility] [address] [place] [address] Phone: tel: Referral ID Status Reason Start Date Expiration Date Visits Re quested Visits Authorized [id number] Open 02/19/2025 02/19/2026 1 1 Reason for Visit * Auth/Cert (Routine) Specialty Diagnoses / Procedures Referred By Contac t Referred To Contact Diagnoses Chronic hepatitis C without hepatic coma (HCC) Transaminitis Chronic hepatitis C without hepatic coma (HCC) [B18.2] Transaminitis [R74.01] Procedures [place] US GUIDED NEEDLE PLACEMENT BIOPSY LIVER (NEEDLE/PERCUTANEOUS) Referral ID Status Reason Start Date Expiration Date Visits Re quested Visits Authorized [id number] 1 1 Encounter Details Date Type Department Care Team (Latest Contact Info) Description 02/19/2025 11:37 AM CDT Hospital Encounter [facility] [address] [place] [phone] Juan Valencia MD [facility] [address]L [place] [address] Interven Radiology Social History Tobacco Use Types [...] Recorded Patient Health Questionnaire-2 Score 0 11/20/2024 [facility] - Occupational [...] place to sleep or slept in a care home (including now)? No 06/04/2024 Housing Stability [...] any time in the past 12 m [facility], were you homeless or living in a care home (including now)? 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 Callum Guerrero MD Jig Grinder Set Up Operator Vascular & Interventional Radiology 02/20/2025 5:30 AM documented in this encounter Miscellaneous Notes * Clinical References AVS - Richie Alejandro RN - 02/19/2025 1:22 PM CDT Images from the original note were not included. [id number] Liver Biopsy A liver biopsy is when [...] naproxen. ?? Medicines for heart conditions ?? Vbkq-mmk-pxvsjht medicines ?? All prescription medicines ?? Illegal [...] belly Last Reviewed Date: 2023 00:00:00 ?? [id number] The [employer]. All rights reserved. This information is not [...] evaluation, please review the evaluation forms in [facility]. For details on monitored clinical parameters during the intra-service sedation time, please review the procedure nurse documentation in [facility]. > Dictated by Seng Gaston MD (Crystal Flat Grinder) 02/19/2025 12:59 PM Callum Mondragon MD have [...] response to care. Intra-service sedation start time [id number] hours and end time was 1236 hours during which I was present. Total physician intra-service sedation time was 30 minutes. For details on pre moderate sedation and post moderate sedation patient evaluation, please review the evaluation forms in [facility]. For details on monitored clinical parameters during the intra-service sedation time, please review the procedure nurse documentation in [facility]. > Dictated by Seng Gaston MD (Crystal Flat Grinder) 02/19/2025 12:59 PM Callum Mondragon MD have personally reviewed and interpreted this examination/study. > Interpreting Provider: Callum Guerrero MD on 02/24/2025 5:33 PM Juan Valencia MD CT ORDERABLES Final Result * PATHOLOGY TISSUE (02/19/2025 12:34 PM CDT) Case Report Surgical Pathology Report Case: [id number] Authorizing Provider: Juan Valencia MD Collected: 02/19/2025 12:34 PM Ordering Location: [facility] Received: 02/19/2025 01:06 PM Pathologist: Sammi Escalante MD Specimen: Liver Needle Biopsy, liver bx 02/20/2025 3:50 PM CDT [facility] Final Diagnosis Liver, biopsy (A): - Chronic hepatitis with minimal-mild activity - Steatosis and lobular inflammation without ballooning - Cirrhosis, see comment 02/20/2025 3:50 PM CDT [facility] at 1550 CDT Microscopic [...] 02/20/2025 3:50 PM [facility] Clinical History The patient is a 44-year-old man with history of hepatitis C infection and appearance of cirrhosis on diagnostic imaging. Operative procedure: Ultrasound-guided random core liver biopsy 02/20/2025 3:50 PM [facility] Gross Description The requisition and specimen(s) are identified with the patient's name, Joselito Nguyen. Received in formalin, specimen A, are two baldwin-pink needle cores, 1.7 and 1.0 cm, both 0.1 cm diameter, submitted in toto in cassette A1. IKD 02/20/2025 3:50 PM [facility] Pathologist Location at [facility] 02/20/2025 3:50 PM [facility] Disclaimer The performance characteristics [...] 02/20/2025 3:50 PM [facility] Collected By Balbir Rdz RN 3:50 PM [facility] Embedded Images 02/20/2025 3:50 PM [facility] Pathology/Cytolo gy NEEDLE BIOPSY OF LIVER / Unknown Collection / Unknown 02/19/2025 12:34 PM CDT 02/19/2025 1:06 PM CDT Comment:LIVER NEEDLE BIOPSY Juan Valencia MD LAB - PATHOLOGY/CYTOLOGY ORDER LISSETH Final Result [facility] [address] [place] [address], [facility] [phone] documented in this encounter Visit Diagnoses Diagnosis [...] documented as of this encounter Care Teams Mobile Application Architect Relationship Specialty Start Date End Date Matthew Sorenson PA [address] [place] [address] PCP - General 02/02/22 Jose Luis Brooks MD [address] [place] [address] Dental Receptionist/Oncologis t Hematology and Oncology 08/29/24 05/27/25 Abelardo Presley MD [address] [place] [address] Hematology and Oncology 08/29/24 03/04/25 Bo Francisco MD [address] [place] [phone] Hematology and Oncology 08/29/24 03/04/25 Angie Rogers MD [address] [place] [phone] Physician Hematology and Oncology 08/29/24 03/04/25 Katie Gutierrez, PharmD 08/29/24 03/04/25 Jaja Rayo, RN Registered Nurse 08/29/24 03/04/25 Abimbola Waters, DAYNA-TOLL RELIEF OPERATOR [address] [place] [phone] Nurse Practitioner Nurse Practitioner 08/29/24 03/04/25 Perri Dexter APRN-CNP [address] [place] [address] Nurse Practitioner Nurse Practitioner 08/29/24 03/04/25 Marilyn Bennett, RN Coordinator 08/29/24 05/27/25 Erasmo Roberson, RN Registered Nurse 08/29/24 03/04/25 Alexandra Cota, RN Registered Nurse 08/29/24 03/04/25 Alda Braswell 08/29/24 03/04/25 Lucia Sharif, KILN TESTER Eyeglass Lens Grinder 08/29/24 03/04/25 documented as of this encounter
--- OUTSIDE RECORDS SUMMARY | 2025-06-23 08:34 | XMS_ITS | Clinical Summary ---
Author Organization [facility] Address [address] [place] [address] Care Team Providers Care E Commerce Merchandising Coordinator Name Role Phone Matthew Sorenson Primary Care Provider [phone] Matthew Sorenson Unavailable [phone] Allergies Active Allergy Reactions Criticality Noted [...] Description 04/06/2025 9:00 AM CDT Office Visit [facility] [address] [place] [address] David Santiago MD Multiple myeloma, remission status unspecified (HCC) 04/06/2025 8:00 AM CDT Lab [facility] [address] [place] [address] 6 [place] [address] 04/06/2025 7:45 AM CDT Lab [facility] - [facility] Collection [address] [place] [address] Floor 6 [place] [address] Multiple myeloma not having achieved remission (HCC) 04/06/2025 Telephone [facility] [address] [place] [phone] Agnes Hawkins RN 03/25/2025 Orders Only [facility] [address] [place] [phone] David Santiago MD Multiple myeloma not having [...] on file Legal Sex Male 10:04 AM REVIEW ANALYST Gender Identity Not on file Sexual [...] Influenza Vaccine (#1) 2025 eGFR 04/06/2026 04/06/2025, 11/29, 12/13/2024, Additional history exists HPV Vaccines Aged [...] 8:04 AM CDT) Pathologist [facility] [place]/Lambda ratio [facility] 1.33 0.26 - 1.65 Comment: Interpretive Data The Binding Site FreeLite assay procedure was used. Results from different manufacturers or methods may not be comparable. Serial testing should be performed using the same methods and instrumentation. Current Interpretive Data was last revised on 2023. [place] free light chain [facility] 1.45 0.33 - 1.94 mg/dL [facility] Comment: Interpretive Data The Binding Site FreeLite assay procedure was used. Results from different manufacturers or methods may not be comparable. Serial testing should be performed using the same methods and instrumentation. Current Interpretive Data was last revised on 2023. Lambda free light chain [facility] 1.09 0.57 - 2.63 mg/dL [facility] [...] ORDERABLES Final Resul t [facility] Department [place] [address] * (ABNORMAL) CBC with auto differential (04/06/2025 8:04 AM CDT) WBC 7.11 3.80 - 9.90 K/cumm Comment:Testing performed by : [facility], [address] [place] [address] Hgb 16.0 13.0 - 17.5 g/dL [facility] Comment:Testing performed by : [facility], [address] [place] [address] Hct 47.8 38.9 - 50.3 % [facility] Comment:Testing performed by : [facility], [address] [place] [address] Plt 257 150 - 400 K/cumm [facility] Comment:Testing performed by : [facility], [address] [place] [address] MPV 9.1 6.8 - 10.4 fL [facility] Comment:Testing performed by : [facility], [address] [place] [address] RBC 5.72 4.30 - 5.80 M/cumm [facility] Comment:Testing performed by : [facility], [address] [place] [address] MCV 83.6 81.3 - 96.4 fL [facility] Comment:Testing performed by : [facility], [address] [place] [address] MCH 28.0 27.1 - 33.3 pg [facility] Comment:Testing performed by : [facility], [address] [place] [address] MCHC 33.5 32.3 - 35.7 g/dL [facility] Comment:Testing performed by : [facility], [address] [place] [address] RDW CV 15.1(H) 11.1 - 14.9 % [facility] Comment:Testing performed by : [facility], [address] [place] [address] NRBC abs 0.00 0.00 - 0.01 K/cumm [facility] Comment:Testing performed by : [facility], [address] [place] [address] Blood 04/06/2025 8:04 AM CDT 04/06/2025 8:09 AM CDT us David Santiago MD LAB BLOOD ORDERABLES Edited Resu lt - Final [facility] [place] [address] * (ABNORMAL) Manual Differential (04/06/2025 8:04 AM CDT) Cells Counted 200 Comment:Testing performed by : [facility], [address] [place] [address] Neutrophil abs 2.84 1.50 - 6.50 K/cumm [facility]IPS Comment:Testing performed by : [facility], [address] [place] [address] Lymphocyte abs 2.56 0.80 - 3.30 K/cumm [facility] Comment:Testing performed by : [facility], [address] [place] [phone] Monocyte abs 0.71 0.20 - 0.80 K/cumm [facility] Comment:Testing performed by : [facility], [address] [place] [phone] Eosinophil abs 0.50 0.00 - 0.50 K/cumm [facility] Comment:Testing performed by : [facility], [address] [place] [phone] Basophil abs 0.21(H) 0.00 - 0.10 K/cumm [facility] Comment:Testing performed by : [facility], [address] [place] [phone] Neutrophil pct 40.0 % [facility] Comment: Interpretive Data Percent cell count reference ranges are not reported, since discordance with absolute values may lead to misinterpretation of CBC data. Current Interpretive Data was last revised on 2018. Testing performed by: [facility], [address] [place] [phone] Lymphocyte pct 36.0 % [facility] Comment: Interpretive Data Percent cell count reference ranges are not reported, since discordance with absolute values may lead to misinterpretation of CBC data. Current Interpretive Data was last revised on 2018. Testing performed by: [facility], [address] [place] [phone] Monocyte pct 10.0 % [facility] Comment: Interpretive Data Percent cell count reference ranges are not reported, since discordance with absolute values may lead to misinterpretation of CBC data. Current Interpretive Data was last revised on 2018. Testing performed by: [facility], [address] [place] [phone] Eosinophil pct 7.0 % [facility] Comment: Interpretive Data Percent cell count reference ranges are not reported, since discordance with absolute values may lead to misinterpretation of CBC data. Current Interpretive Data was last revised on 2018. Testing performed by: [facility], [address] [place] [phone] Basophil pct 3.0 % [facility] Comment: Interpretive Data Percent cell count reference ranges are not reported, since discordance with absolute values may lead to misinterpretation of CBC data. Current Interpretive Data was last revised on 2018. Testing performed by: [facility], [facility]0 [address] Myelocyte pct 1.0(H) 0.0 - 0.0 % [facility] Comment:Testing performed by : [facility], [address] [place], [place] [id number] Variant lymph pct 5.0(H) 0.0 - 0.0 % [facility] Comment:Testing performed by : [facility], [address] [place], [place] [id number] RBC morphology Normal [facility] Comment:Testing performed by : [facility], [address] [place], [place] [id number] Platelet estimate Adequate [facility] Comment:Testing performed by : [facility], [address] [place], [place] [id number] Blood 04/06/2025 8:04 AM CDT 04/06/2025 8:09 AM CDT us David Santiago MD LAB BLOOD ORDERABLES Final Resul t [facility] Department [place] [address] * Protein electrophoresis with reflex, serum with interpretation (04/06/2025 8:04 AM CDT) Protein, sr 6.8 6.2 - 8.2 g/dL Albumin 4.3 3.2 - 5.0 g/dL [facility] Alpha-1 globulin 0.3 0.2 - 0.4 g/dL [facility] Alpha-2 globulin 1.0 0.5 - 1.0 g/dL [facility] Beta-1 globulin 0.4 0.3 - 0.6 g/dL [facility] Beta-2 globulin 0.3 0.2 - 0.6 g/dL [facility] Gamma globulin 0.5 0.5 - 1.7 g/dL [facility] SPEP interp Please see comment [facility] Comment: No apparent monoclonal peak Reviewed and signed by Jonatan Astorga MD, PhD 04/07/2025 Blood 04/06/2025 8:04 AM CDT 04/06/2025 9:12 AM CDT us David Santiago MD LAB BLOOD ORDERABLES Final Resul t Performing Organization Address City/[facility]/ZIP Co de Phone Number [facility] [place] [address] * eGFR (04/06/2025 7:04 AM CDT) eGFR [...] ORDERABLES Final Resul t Performing Organization Address City/[facility]/ZIP Co de Phone Number [facility] Department [place] [address] * Lactate dehydrogenase (LD) (04/06/2025 7:04 AM CDT) Lactate dehydrogenase (LDH) 142 100 - 250 Units/L Blood 04/06/2025 7:04 AM CDT 04/06/2025 8:10 AM CDT David Santiago MD LAB BLOOD ORDERABLES Final Resul t Performing Organization Address [facility] de Phone Number [facility] [place] [address] * (ABNORMAL) IgA (04/06/2025 7:04 AM CDT) Immunoglobulin A <50(L) 70 - 400 mg/dL Blood 04/06/2025 7:04 AM CDT 04/06/2025 8:31 AM CDT David Santiago MD LAB BLOOD ORDERABLES Final Resul t Performing Organization Address [facility] de Phone Number [facility] [place] [address] * (ABNORMAL) IgM (04/06/2025 7:04 AM CDT) Immunoglobulin M <25(L) 40 - 230 mg/dL Blood 04/06/2025 7:04 AM CDT 04/06/2025 8:31 AM CDT David Santiago MD LAB BLOOD ORDERABLES Final Resul t Performing Organization Address [facility] [place]/[facility] de Phone Number [facility] [place] [address] * (ABNORMAL) IgG (04/06/2025 7:04 AM CDT) Immunoglobulin G 600(L) 700 - 1,600 mg/dL Blood 04/06/2025 7:04 AM CDT 04/06/2025 8:31 AM CDT David Santiago MD LAB BLOOD ORDERABLES Final Resul t Performing Organization Address City/[facility] [place]/[facility] Co de Phone Number [facility] [place] [address] * (ABNORMAL) Beta 2 microglobulin, serum (04/06/2025 [...] Resul t Performing Organization Address [facility] [place]/[facility] de Phone Number [facility] Department [place] [address] * (ABNORMAL) Comprehensive metabolic panel (04/06/2025 7:04 AM CDT) [facility] Sodium 140 135 - 145 mmol/L Potassium, pl 3.9 3.3 - 4.9 mmol/L [facility] Chloride 106 97 - 110 mmol/L [facility] CO2 23 22 - 32 mmol/L [facility] Anion gap 11 2 - 15 mmol/L [facility] BUN 15 6 - 25 mg/dL [facility] Creatinine 0.81 0.80 - 1.30 mg/dL [facility] Glucose 169 70 - 199 mg/dL [facility] Comment: Interpretive Data Fasting glucose >/= [...] Calcium 9.6 8.5 - 10.3 mg/dL [facility] Bilirubin, total 0.2 0.1 - 1.2 mg/dL [facility] Protein, pl 7.1 6.5 - 8.5 g/dL [facility] Albumin 4.4 3.5 - 5.0 g/dL [facility] Alk phos 199(H) 40 - 130 Units/L [facility] ALT 36 7 - 55 Units/L [facility] AST 19 10 - 50 Units/L [facility] Blood 04/06/2025 7:04 AM CDT 04/06/2025 8:10 AM CDT us David Santiago MD LAB BLOOD ORDERABLES Final Resul t [facility] [place] [address] from Last 3 Months Insurance [facility] Care Teams E Commerce Merchandising Coordinator Relationship Specialty Start Date End Date Matthew Sorenson PA [address] [place] [address] PCP - General Family Practice 05/04/23 Matthew Sorenson PA [address] [place] [address] Family Practice 09/12/22
--- OUTSIDE RECORDS SUMMARY | 2025-06-23 08:35 | XMS_ITS | Encounter Summary ---
Author Organization [facility] Address [address] [facility] [place] [address] Care Team Providers Care Recording Clerk Name Role Phone Matthew Sorenson Primary Care Provider [phone] Jose Luis Brooks MD Unavailable [phone] Abelardo Presley MD Unavailable [phone] Bo Francisco MD Unavailable [phone] Angie Rogers MD Unavailable Katie GutierrezD Unavailable Unavaila Jaja Casillas RN Unavailable Unavailable Abimbola Waters INTERNATIONAL ACCOUNTING MANAGER-CUSTOMS APPRAISER Unavailable [phone] Perri Dexter INTERNATIONAL ACCOUNTING MANAGER-CUSTOMS APPRAISER Unavailable [phone] Marilyn Bennett RN Unavailable Unavailable Erasmo Roberson RN Unavailable Unavailable Alexandra Cota RN Unavailable Unavailable Alda Braswell Unavailable Unavailable Lucia Sharif LCSW Unavailable Unavailab le Reason for Visit * Reason Onset Date Comments MEDICATION REFILL 10/20/2024 Encounter Details Date Type Department Care Team (Late st Contact Info) Description 10/20/2024 Refill [facility] [address] [place] [address] Gina Denton MD [address] [place] [address] MEDICATION REFILL Social History Tobacco Use Types [...] Recorded Patient Health Questionnaire-2 Score 1 08/12/2024 [facility] - Occupational [...] in the past 12 m [facility], were you homeless or living in a usp (including now)? No 10/24/2024 Sex and Gender Information Value Date Recorded Sex Assigned at Not on file Legal Sex Male 11:44 AM PROFESSOR OF COUNSELING Gender Identity Not on file Sexual Orientation Not on file documented as of this encounter Functional Status * Is person deaf or have serious hearing difficulty? Answer Date of Assessment Author No 09/05/2024 9:00 AM Ruthy Sam RN * Is person blind or have serious difficulty seeing? Answer Date of Assessment Author No 09/05/2024 9:00 AM Ruthy Sma RN * Does person have serious difficulty [...] documented as of this encounter Care Teams Recording Clerk Relationship Specialty Start Date End Date Matthew Sorenson PA [address] [place] [address] PCP - General 02/02/22 Jose Luis Brooks MD [facility] [place] [address] Patient Monitor/Oncologis t Hematology and Oncology 08/29/24 05/27/25 Abelardo Presley MD [facility] [place] [address] Hematology and Oncology 08/29/24 03/04/25 Bo Francisco MD [address] [place] [phone] Hematology and Oncology 08/29/24 03/04/25 Angie Rogers MD [address] [place] [phone] Physician Hematology and Oncology 08/29/24 03/04/25 Katie Gutierrez, PharmD 08/29/24 03/04/25 Jaja Rayo RN Registered Nurse 08/29/24 03/04/25 Abimbola Waters APRN-CNP [address] [place] [address] Nurse Practitioner Nurse Practitioner 08/29/24 03/04/25 Perri Dexter APRN-CNP [address] [place] [phone] Nurse Practitioner Nurse Practitioner 08/29/24 03/04/25 Marilyn Bennett, LOLI Coordinator 08/29/24 05/27/25 Erasmo Roberson, RN Registered Nurse 08/29/24 03/04/25 Alexandra Cota, RN Registered Nurse 08/29/24 03/04/25 Alda Braswell 08/29/24 03/04/25 Lucia Sharif, CELLOPHANE WORKER Assistant Department Manager 08/29/24 03/04/25 documented as of this encounter
--- OUTSIDE RECORDS SUMMARY | 2025-06-23 08:35 | XMS_ITS | Encounter Summary ---
Author Organization [facility] Address [address] [facility] [place] [address] Care Team Providers Care Cooking Show Host Name Role Phone Matthew Sorenson Primary Care Provider [phone] Jose Luis Brooks MD Unavailable [phone] Abelardo Presley MD Unavailable [phone] Bo Francisco MD Unavailable [phone] Angie Rogers MD Unavailable Katie GutierrezD Unavailable Unavaila Jaja Casillas RN Unavailable Unavailable Abimbola Waters WAGE AND SALARY SPECIALIST-EVAPORATOR HELPER Unavailable [phone] Perri Dexter WAGE AND SALARY SPECIALIST-EVAPORATOR HELPER Unavailable [phone] Marilyn Bennett RN Unavailable Unavailable Erasmo Roberson RN Unavailable Unavailable Alexandra Cota RN Unavailable Unavailable Alda Braswell Unavailable Unavailable Lucia Sharif LCSW Unavailable Unavailab le Reason for Visit * Reason Onset Date Comments MEDICATION REFILL 10/20/2024 Encounter Details Date Type Department Care Team (Late st Contact Info) Description 10/20/2024 Refill [facility] - Hematology/Oncology [address] [place] [address] Jose Luis Brooks MD [address] [facility] [place] [address] MEDICATION REFILL Social History Tobacco [...] Recorded Patient Health Questionnaire-2 Score 1 08/12/2024 [facility] - [...] place to sleep or slept in a chcf (including now)? No 06/04/2024 Housing Stability Vital Sign Answer Obed e Recorded In the last 12 months, was t here a time when you were not able to pay the mortgage or rent on time? Yes 10/24/2024 In the past 12 months, how m any times have you moved where you were living? 0 10/24/2024 At any time in the past 12 m [facility], were you homeless or living in a chcf (including now)? No 10/24/2024 Sex and Gender Information Value Date Recorded Sex Assigned at Not on file Legal Sex Male 11:44 AM LACE SEWER Gender Identity Not on file Sexual Orientation [...] documented as of this encounter Care Teams Cooking Show Host Relationship Specialty Start Date End Date Matthew Sorenson PA [address] [place] [address] PCP - General 02/02/22 Jose Luis Brooks MD [address] [place] [address] Project Management Professional/Oncologis t Hematology and Oncology 08/29/24 05/27/25 Abelardo Presley MD [address] [place] [address] Hematology and Oncology 08/29/24 03/04/25 Bo Francisco MD [address] [place] [phone] Hematology and Oncology 08/29/24 03/04/25 Angie Rogers MD [address] [place] [phone] Physician Hematology and Oncology 08/29/24 03/04/25 Katie Gutierrez, PharmD 08/29/24 03/04/25 Jaja Rayo RN Registered Nurse 08/29/24 03/04/25 Abimbola Waters APRN-CNP [facility] [place] [address] Nurse Practitioner Nurse Practitioner 08/29/24 03/04/25 Perri Dexter APRN-CNP [address] [place] [phone] Nurse Practitioner Nurse Practitioner 08/29/24 03/04/25 Marilyn Bennett, RN Coordinator 08/29/24 05/27/25 Erasmo Roberson, RN Registered Nurse 08/29/24 03/04/25 Alexandra Cota, RN Registered Nurse 08/29/24 03/04/25 Alda Braswell 08/29/24 03/04/25 Lucia Sharif, TRAFFIC RATE ANALYST Freight Breaker 08/29/24 03/04/25 documented as of this encounter
--- OUTSIDE RECORDS SUMMARY | 2025-06-23 08:35 | XMS_ITS | Clinical Summary ---
Author Organization [facility] Address [address] [address] Phone Care Team Providers Care Airplane Pilot Photogrammetry Name Role Phone Matthew Sorenson Bebe RAWLS Primary Care Provider [phone] Allergies Active Allergy Reactions Criticality Noted Date Comments Morphine Itching 06/01/2025 Medications acetaminophen (TYLENOL) 500 MG Tablet Take 500 mg by mouth every 4 hours as needed. Active acyclovir (ZOVIRAX) 400 MG Tablet Take 400 mg by mouth 2 times daily. Active amLODIPine (NORVASC) 10 MG Tablet Take 10 mg by mouth daily. Active verapamil (CALAN,ISOPTIN) 120 MG Tablet Take 120 mg by mouth 2 times daily. Active traMADol (ULTRAM) 50 MG Tablet Take 50 mg by mouth every 6 hours as needed. Active SUMAtriptan (IMITREX) 50 MG Tablet Take 50 mg by mouth once as needed. Use as directed. May repeat dose in 2 hours if headache recurs. Active sertraline (ZOLOFT) 50 MG Tablet Take 50 mg by mouth daily. Active senna (SENOKOT) 8.6 MG Tablet Take 1 Tablet by mouth 2 times daily. X 10 DAYS Active prochlorperazin e (COMPAZINE) 10 MG Tablet Take 10 mg by mouth every 6 hours as needed. Active oxyCODONE-aceta minophen (PERCOCET) 5-325 MG Tablet Take 1 Tablet by mouth every 6 hours as needed. Active oxyCODONE HCl ER (OxyCONTIN) 20 MG Tablet Extended Release 12 hour Abuse-Deterrent Take 20 mg by mouth every 12 hours. Active ondansetron (ZOFRAN-ODT) 8 MG TABLET DISPERSIBLE Take 8 mg by mouth every 8 hours as needed. Active Nutritional Supplements (ENSURE ACTIVE HIGH PROTEIN PO) Take 2 Cans by mouth 2 times daily. Active montelukast (SINGULAIR) 10 MG Tablet Take 10 mg by mouth once. I HOUR PRIOR TO TREATMENT Active mirtazapine (REMERON) 15 MG Tablet Take 15 mg by mouth nightly. Active methocarbamol (ROBAXIN) 500 MG Tablet Take 750 mg by mouth 3 times daily as needed. Active losartan (COZAAR) 100 MG Tablet Take 100 mg by mouth daily. Active Lidocaine (Aspercreme Lidocaine) 4 % Patch 1 Patch by Transdermal route every 24 hours. Active lenalidomide 25 mg capsule (Revlimid) 25 MG Capsule Take 10 mg by mouth every other day. Active INSULIN GLARGINE SC 10 Units by Subcutaneous route daily. Active Insulin Glargine (LANTUS SOLOSTAR SC) 10 Units by Subcutaneous route daily. Active insulin aspart (NovoLOG) 100 unit/ml injection 5 Units by Subcutaneous route daily. Active ibuprofen (MOTRIN) 600 MG Tablet Take 600 mg by mouth every 6 hours as needed. Active hydrOXYzine (ATARAX) 25 MG Tablet Take 25 mg by mouth 2 times daily. Active gabapentin (NEURONTIN) 300 MG Capsule Take 300 mg by mouth 2 times daily. Active fexofenadine (ROMAN) 180 MG Tablet Take 180 mg by mouth daily. Active famotidine (PEPCID) 40 MG Tablet Take 40 mg by mouth daily. Active empagliflozin (Jardiance) 25 MG Tablet Take 25 mg by mouth daily. Active doxycycline hyclate (VIBRAMYCIN) 100 MG Capsule Take 100 mg by mouth 2 times daily. Active docusate sodium (Colace) 100 MG Capsule Take 100 mg by mouth 2 times daily. Active cyclobenzaprine (FLEXERIL) 10 MG Tablet Take 10 mg by mouth 2 times daily. Active carvedilol (COREG) 12.5 MG Tablet Take 12.5 mg by mouth 2 times daily. Active camphor-menthol (SARNA) 0.5-0.5 % Lotion Apply as needed for Itching. Apply to affected area 3 x daily as needed for itching Active buPROPion SR (WELLBUTRIN SR) 150 MG TABLET SR 12 HR Take 150 mg by mouth 2 times daily. Active baclofen (LIORESAL) 5 MG Tablet Take by mouth 3 times daily. Active atenolol (TENORMIN) 50 MG Tablet Take 50 mg by mouth daily. Active apixaban (Eliquis) 5 MG Tablet Take 5 mg by mouth 2 times daily. Active amoxicillin (AMOXIL) 875 MG Tablet Take 875 mg by mouth 2 times daily. Active Encounters Date Type Department Care Team Description 06/01/2025 Travel from Last 3 Months Family History Medical History Relation Name Comments No Known Problems Father knows no i nformation on father No Known Problems Mother Relation Name Status Comments Father Mother Alive Social History Tobacco Use Types Packs/Day Years Used Date Smoking Tobacco: Every Day Cigarettes Smokeless Tobacco: Never Tobacco Cessation:Ready to Q uit: Not Asked; Counseling Given: Not Answered Comments:1 PPD Alcohol Use Standard Drinks/Week Comments Not Currently 0 (1 standard drink = 0.6 oz pur e alcohol) Sex and Gender Information Value Date Recorded Sex Assigned at Not on file Legal Sex Male 9:21 PM CDT Gender Identity Not on file Sexual Orientation Not on file Last Filed Vital Signs Vital Sign Reading Time Taken Comments Blood Pressure - - Pulse - - Temperature - - Respiratory Rate - - Oxygen Saturation - - Inhaled Oxygen Concentration - - Weight 113.4 kg (250 lb) 06/01/2025 11:00 AM CDT Height 182.9 cm (6') 06/01/2025 11:00 AM CDT Body Mass Index 33.91 06/01/2025 11:00 AM CDT Plan of Treatment Upcoming Encounters Date Type Department Care Team (Late st Contact Info) Description 07/14/2025 8:30 AM CDT [facility] [address] [facility] [place] [address] Norman Cifuentes MD 2 [facility] [address] [address] 07/14/2025 8:30 AM CDT - 07/14/2025 9:00 AM CDT [facility] [place] [place] [address] Norman Cifuentes MD 2 [facility] [address] [address] COLONOSCOPY Scheduled Procedures Name Priority Associated Diagnoses Date/Ti me COLONOSCOPY SCREENING 07/14/2025 8:30 AM CDT Health Maintenance Due Date Last Done Comments TdaP Immunization 1978 SARS-COV-2 Immunization (#1) 1983 Hepatitis B Immunization (1 of 3 - 19+ 3-dose series) 1997 Pneumococcal Immunization Co mbined (1 of 2 - PCV) 1997 Cologuard 2023 Colonoscopy 2023 Colorectal Cancer Screening 2023 Immunochemical Fecal Occult Blood 2023 Influenza Immunization (#1) 2025 Respiratory Syncytial Virus [...] age to complete this topic [facility] Airplane Pilot Photogrammetry Relationship Specialty Start Date End Date Matthew Sorenson PAC [address] [place] [address] PCP - General Physician [employer] 04/27/25
--- OUTSIDE RECORDS SUMMARY | 2025-06-23 08:35 | XMS_ITS ---
Author Organization [facility] Address [address] [facility] [place] [address] Care Team Providers Care Signal Maintainer Helper Name Role Phone Matthew Sorenson Primary Care Provider [phone] Active Problems Problem Noted Date Diagnosed Date [...]
--- OUTSIDE RECORDS SUMMARY | 2025-06-23 08:35 | XMS_ITS | Clinical Summary ---
Author Organization [facility] Positive[facility] Address [address] [facility] [place] [address] Care Team Providers Care Rug Layer Name Role Phone Matthew Sorenson Primary Care Provider [phone] Source Comments [facility],non-owned Affiliates and Associated Physician Practices is amultiple site organization consisting of ambulatory clinics and hospital sitesin [place], [place], [place] and [place]. This disclosure is being madepursuant to the Care Everywhere program and may not contain all information available regarding this patient. Last updated 18.[facility] Allergies Active Allergy Reactions Criticality Noted Date [...] verio strips, Reported on 02/26/2025 Continuous Glucose Construction Quality Control Manager (Dexcom G7 Construction Quality Control Manager) SONIA as directed Act khari Continuous Glucose [...] 5-Bevel Pen [place] 31G X 6 MM MISC USE TO [...] - 06/15/2025 11:59 PM CDT Hospital Encounter [facility] [address] [place] [address] Robb Wakefield MD Discharge Disposition: Home or Self Care 06/05/2025 Telephone Transitional Care at [address] [address] Rena Solano RN Missed Appointment 06/02/2025 Telephone Transitional Care at [address] [address] Malu Noyola, MA Question 06/01/2025 Telephone Transitional Care at [address] [address] Rena Solano, medical scientist 06/01/2025 Travel 05/28/2025 Travel 05/27/2025 11:33 PM CDT - 05/31/2025 9:25 AM CDT Hospital Encounter [facility] [address] [address] [place] [phone] Cristian Garcia MD Kent, Saida A, MD Felgenhauer, Joshua, MD Emergency Medicine Discharge Disposition: Home or Self Care 05/04/2025 Refill [facility] [address] [place] [phone] Perri Dexter APRN-CNP Refill Request 04/03/2025 Travel 03/26/2025 Refill [facility] [address] [place] [phone] Perri Dexter APRN-CNP Refill Request 03/24/2025 Refill [facility] [address] [place] [phone] Jose Luis Brooks MD Refill Request from Last 3 Months Family History Medical [...] Recorded Patient Health Questionnaire-2 Score 0 11/20/2024 [facility] - Occupational [...] place to sleep or slept in a intermediate (including now)? No 06/04/2024 Housing Stability Vital Sign Answer Obed e Recorded In the last 12 months, was t here a time when you were not able to pay the mortgage or rent on time? Yes 11/23/2024 In the past 12 months, how m any times have you moved where you were living? 0 11/23/2024 At any time in the past 12 m [facility], were you homeless or living in a intermediate (including now)? 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 Gender Identity Not on file Sexual [...] Concentration 21% 02/19/2025 1:30 PM CDT Weight 57.2 kg (126 lb [...] this topic Medical Devices Implanted Type Area Detective Device Identifier Shelf Expiration Date Model / Serial / Lot Kit Spnl 5.8mm Spinejack Implanted:Qty: 1 on 07/22/2024 by Arya Rm MD at [facility] N/A: Spine Lumbar Dottie Spine 10/28/2024 [id number] / / [id number] Kit Bone Cmnt Vertaplex Hv Autoplex Wo Implanted:Qty: 1 on 07/22/2024 by Arya Rm MD at [facility] N/A: Spine Lumbar Dottie Spine 05/29/2025 [id number] / / [id number] Port Implinfn Powerport Clrvu Argd Nya Implanted:Qty: 1 on 08/20/2024 by Vic Callahan MD at [facility] Right: Chest Wall Bard Peripheral Vascular 08/28/2025 [id number] / / [id number] Mixer Bone Cmnt Kyphon C20gm Ll Fit Implanted:Qty: 1 on 12/02/2024 by Arya Rm MD at [facility] N/A: Spine Lumbar Kyphon Inc [id number] / / Cmnt Bone Hv-R Kphx Mxr Grad Mrk Dspns Implanted:Qty: 1 on 12/02/2024 by Arya Rm MD at [facility] N/A: Spine Lumbar Kyphon Inc [id number] / / Graft Bone Grftn Dbm Plif 10x2.5cm Implanted:Qty: 1 on 12/02/2024 by Arya Rm MD at [facility] N/A: Spine Lumbar Osteotech Inc [id number] / / Ezekiel Spnl 500mm 5.5mm Cd Hzn Str Ti Ln Cp Implanted:Qty: 1 on 12/02/2024 by Arya Rm MD at [facility] N/A: Spine Lumbar Medtronic Inc [id number] / / Graft Bone Grftn Dbm Aspt 5x2.5cm Post Implanted:Qty: 1 on 12/02/2024 by Arya Rm MD at [facility] N/A: Spine Lumbar Medtronic Inc [id number] / / Screw Set Ti Spnl Brk Off Cd Hzn Nonster Implanted:Qty: 8 on 12/02/2024 by Arya Rm MD at [facility] N/A: Spine Lumbar Medtronic Inc [id number] / / Screw 7.5mm 55mm Ma Spne Solera Cd Hzn Implanted:Qty: 2 on 12/02/2024 by Arya Rm MD at [facility] N/A: Spine Lumbar Medtronic Inc [id number] / / Screw 7.5mm 50mm Ma Spne Solera Cd Hzn Implanted:Qty: 6 on 12/02/2024 by Arya Rm MD at [facility] Medtronic Inc [id number] / / Slnt Dura Duraseal Pg Trilysine Amine 5 Implanted:Qty: 1 on 12/02/2024 by Arya Rm MD at [facility] N/A: Spine Lumbar Integra CareerFoundryciWilocity Thang / / Explanted Type Area Detective Device Identifier Shelf Expiration Date Model / Serial / Lot Kit Osteocool Srg 10ga Bone Acc Explanted:Qty: 2 on 07/22/2024 by Arya Rm MD at [facility] N/A: Spine Lumbar Medtronic Inc [id number] / / [id number] Description:Access device, n ot an implant. No other options in system Probe 17ga 20mm Rf Eltx Osteocool 2mm Explanted:Qty: 1 on 07/22/2024 by Arya Rm MD at [facility] N/A: Spine Lumbar Medtronic Inc 03/26/2027 [id number] / / [id number] Description:Access device, n ot an implant. No [...] DATE/TIME OF EXAM: 06/15/2025 10:11 AM, LOCATION [facility] INDICATION: C90.00: Multiple myeloma, remission status [...] DATE/TIME OF EXAM: 06/15/2025 10:11 AM, LOCATION [facility] INDICATION: C90.00: Multiple myeloma, remission status unspecified ([facility]) ADDITIONAL CLINICAL INFORMATION: Ordering Provider Reason For [...] 41 - 74 % 05/31/2025 8:08 AM [facility] Lymphocyte % 48(H) 17 - 47 % 05/31/2025 8:08 AM [facility] Monocyte % 7 3 - 11 % 05/31/2025 8:08 AM [facility] Basophil % 2 0 - 2 % 05/31/2025 8:08 AM [facility] Neutrophil Absolute 5.38 1.60 - 7.50 x10E9/L 05/31/2025 8:08 AM [facility] Lymphocyte Absolute 6.00(H) 1.00 - 4.40 x10E9/L 05/31/2025 8:08 AM [facility] Monocyte Absolute 0.88 0.15 - 1.00 x10E9/L 05/31/2025 8:08 AM [facility] Basophil Absolute 0.25(H) 0.00 - 0.13 x10E9/L 05/31/2025 8:08 AM [facility] RBC Morphology REVIEWED 05/31/2025 8:08 AM [facility] Large Platelets PRESENT(A) (none) 05/31/2025 8:08 AM [facility] Blood BLOOD SPECIMEN / Unknown Lab Venipuncture / Unknown 05/31/2025 6:56 AM CDT 05/31/2025 7:31 AM CDT us Cristian Garcia MD LAB - HEMATOLOGY ORDERABLES F inal Result [facility] [address] [place] [address], [facility] [phone] * (ABNORMAL) CBC W AUTO DIFFERENTIAL (05/31/2025 6:56 AM CDT) Only the most recent of4 resultswithin the time period is included. WBC 12.5(H) 4.0 - 10.7 x10E9/L 05/31/2025 8:08 AM [facility] RBC Count 5.46 4.30 - 5.80 x10E12/L 05/31/2025 8:08 AM [facility] Hemoglobin 15.5 13.3 - 17.5 g/dL 05/31/2025 8:08 AM [facility] Hematocrit 46.6 38.7 - 51.1 % 05/31/2025 8:08 AM [facility] MCV 85.3 80.0 - 98.0 fL 05/31/2025 8:08 AM [facility] MCH 28.4 26.7 - 33.6 pg 05/31/2025 8:08 AM [facility] MCHC 33.3 31.7 - 36.3 g/dL 05/31/2025 8:08 AM [facility] RDW-CV 15.1(H) 11.3 - 14.8 % 05/31/2025 8:08 AM [facility] Platelet Count 216 150 - 420 x10E9/L 05/31/2025 8:08 AM [facility] MPV 11.0 7.8 - 11.4 fL 05/31/2025 8:08 AM [facility] Blood BLOOD SPECIMEN / Unknown Lab Venipuncture / Unknown 05/31/2025 6:56 AM CDT 05/31/2025 7:31 AM CDT us Cristian Garcia MD LAB - HEMATOLOGY ORDERABLES F inal Result [address] [address], [facility] [phone] * (ABNORMAL) RENAL FUNCTION PANEL (05/31/2025 6:56 AM CDT) Only the most recent of3 resultswithin the time period is included. BUN 14 7 - 26 mg/dL 05/31/2025 8:02 AM [facility] Creatinine 0.74 0.71 - 1.16 mg/dL 05/31/2025 8:02 AM [facility] Sodium 138 136 - 145 mmol/L 05/31/2025 8:02 AM [facility] Potassium 3.8 3.5 - 4.5 mmol/L 05/31/2025 8:02 AM [facility] Chloride 108(H) 98 - 107 mmol/L 05/31/2025 8:02 AM [facility] CO2 26 22 - 29 mmol/L 05/31/2025 8:02 AM [facility] Glucose 120(H) 70 - 99 mg/dL 05/31/2025 8:02 AM [facility] Albumin 4.0 3.4 - 5.0 g/dL 05/31/2025 8:02 AM [facility] Calcium 8.7 8.4 - 10.2 mg/dL 05/31/2025 8:02 AM [facility] Phosphorus 3.5 2.8 - 5.1 mg/dL 05/31/2025 8:02 AM [facility] Anion Gap 4(L) 6 - 16 05/31/2025 8:02 AM [facility] BUN/Creatinine Ratio 19 7 - 23 05/31/2025 8:02 AM [facility] Osmolality Calculated 288 275 - 295 mOsm/kg 05/31/2025 8:02 AM [facility] eGFR by CKD-EPI >90 >=90 mL/min/1.7 3 m2 05/31/2025 8:02 AM [facility] Comment:Estimated Glomerular Filtration Rate (eGFR) calculated using the CKD-EPI Creatinine Equation (2020), per the National Kidney Foundation and Indian Society of Nephrology recommendations. Blood BLOOD SPECIMEN / Unknown Lab Venipuncture / Unknown 05/31/2025 6:56 AM CDT 05/31/2025 7:31 AM CDT us Cristian Garcia MD LAB - CHEMISTRY ORDERABLES Fi nal Result [facility] [address] [place] [address], [facility] [phone] * MAGNESIUM BLOOD (05/31/2025 6:56 AM CDT) Only the most recent of3 resultswithin the time period is included. Magnesium 1.9 1.6 - 2.6 mg/dL 05/31/2025 8:02 AM CDT [facility] Blood BLOOD SPECIMEN / Unknown Lab Venipuncture / Unknown 05/31/2025 6:56 AM CDT 05/31/2025 7:31 AM CDT us Cristian Garcia MD LAB - CHEMISTRY ORDERABLES Fi nal Result [address] [address], [place] [phone] * GLUCOSE - POINT OF CARE (05/31/2025 6:14 AM CDT) Only the most recent of10 resultswithin the time period is included. [facility] Glucose WB/POC 98 70 - 99 mg/dL 05/31/2025 6:18 AM CDT [facility] Specimen Type Arterial/C apillary 05/31/2025 6:18 AM CDT [facility] Blood BLOOD SPECIMEN / Unknown 05/31/2025 6:14 AM CDT 05/31/2025 6:18 AM CDT us Robb Wakefield MD LAB - POINT OF CARE ORDERA BLES Final Result Performing Organization Address City/[facility]/ZIP Co de Phone Number [address] [address], [place] [phone] * HEPATITIS C RNA QUANTITATIVE (05/29/2025 7:04 AM CDT) [facility] Hepatitis C RNA PCR, Interp Not detected Not detected 06/01/2025 10:14 AM CDT [facility] Hepatitis C Quant by PCR, Log NA log IU/mL 06/01/2025 10:14 AM CDT [facility] Blood BLOOD SPECIMEN / Unknown Lab Venipuncture / Unknown 05/29/2025 7:04 AM CDT 05/29/2025 8:58 AM CDT Narrative [facility] - 06/01/2025 10:14 AM CDT The Hepatitis C viral (HCV) RNA analysis utilized a serum sample, real-time reverse industrial electrician journeyman PCR, and is reported as Not Detected, [...] the isolation of HCV RNA with reverse industrial electrician journeyman of genomic HCV RNA followed by real-time PCR in the presence of an unrelated RNA internal control. The internal control ensures that RNA is isolated, and that no general significant inhibitors of the RT-PCR process are present. The analysis was performed using a U.S. FDA approved test methodology Nahum gomez HCV. Robb Wakefield MD LAB - CHEMISTRY ORDERABLES Final Result [facility] [address] [place] [address], [facility] [phone] * (ABNORMAL) HEMOGLOBIN A1C (05/29/2025 7:04 AM CDT) Hemoglobin A1c 6.1(H) <=5.6 % 05/29/2025 11:58 AM T [facility] Estimated Average Glucose 128 mg/dL 05/29/2025 11:58 AM [facility] Comment: HbA1c Interpretation: Normal : < 5.7% Pre-diabetes: 5.7-6.4% Diabetes: Equal to or greater than 6.5% Test results diagnostic of diabetes should be repeated for confirmation. Treatment target values recommended by ADA and other clinical organizations should be used to evaluate metabolic control in patients. Reference: Indian Diabetes Association, Standards of Care in Diabetes -2020 In patients 70 years and older consider HbA1c target range of 7.0-7.5% (Reference: Jona Epstein et al. KIARADA. 2012) The Sebia assay for the measurement of HbA1c is a National Glycohemoglobin Standardization Program (NGSP) certified method. Blood BLOOD SPECIMEN / Unknown Lab Venipuncture / Unknown 05/29/2025 7:04 AM CDT 05/29/2025 8:00 AM CDT us Cristian Garcia MD LAB - CHEMISTRY ORDERABLES Fi nal Result Performing Organization Address City/[facility]/ZIP Co de Phone Number [address] [address], [place] [phone] * (ABNORMAL) C-REACTIVE PROTEIN (05/28/2025 1:59 PM CDT) C-Reactive Protein 0.6(H) <=0.5 mg/dL 05/28/2025 2:38 PM CDT [facility] Blood BLOOD SPECIMEN / Unknown Venipuncture / Unknown 05/28/2025 1:59 PM CDT 05/28/2025 2:10 PM CDT us Robb Wakefield MD LAB - CHEMISTRY ORDERABLES Final Result Performing Organization Address [facility]/ZIP Co de Phone Number [address] [address], [place] [phone] * ERYTHROCYTE SEDIMENTATION RATE (05/28/2025 1:59 PM CDT) Erythrocyte Sedimentation Rate Westergren 8 0 - 15 MM/HR 05/28/2025 2:32 PM CDT [facility] Blood BLOOD SPECIMEN / Unknown Venipuncture / Unknown 05/28/2025 1:59 PM CDT 05/28/2025 2:10 PM CDT Robb Wakefield MD LAB - HEMATOLOGY ORDERABLE S Final Result Performing Organization Address City/[facility]/ZIP Co de Phone Number [address] [address], [place] [phone] * CT Lumbar Spine Wo Contrast (05/28/2025 [...] correlation for possible infection. > Dictated by Communication Skills Instructor I, Natan Modi MD have personally reviewed and interpreted this examination/study. > Interpreting Provider: Natan Modi MD on 05/28/2025 10:09 AM Narrative 05/28/2025 10:09 AM CDT PROCEDURE: CT THORACIC SPINE WO CONTRAST, CT LUMBAR SPINE WO CONTRAST, DATE/TIME OF EXAM: 05/28/2025 3:39 AM, LOCATION [facility] INDICATION: M54.6: Acute midline thoracic back pain [...] DATE/TIME OF EXAM: 05/28/2025 3:39 AM, LOCATION [facility] INDICATION: M54.6: Acute midline thoracic back pain [...] L3 on L4. Redemonstration of a chronic W4jwnvllyvj body fracture status post kyphoplasty. An irregular lytic lesion and the sclerotic changes with cortical enlargement are noted in the X6spmwrnpfp body. No acute fracture identified. Mild to [...] correlation for possible infection. > Dictated by Communication Skills Instructor I, Natan Modi MD have personally reviewed [...] correlation for possible infection. > Dictated by Communication Skills Instructor I, Natan Modi MD have personally reviewed and interpreted this examination/study. > Interpreting Provider: Natan Modi MD on 05/28/2025 10:09 AM Narrative 05/28/2025 10:09 AM CDT PROCEDURE: CT THORACIC SPINE WO CONTRAST, CT LUMBAR SPINE WO CONTRAST, DATE/TIME OF EXAM: 05/28/2025 3:39 AM, LOCATION [facility] INDICATION: M54.6: Acute midline thoracic back pain [...] DATE/TIME OF EXAM: 05/28/2025 3:39 AM, LOCATION [facility] INDICATION: M54.6: Acute midline thoracic back pain [...] L3 on L4. Redemonstration of a chronic X2uznvrjbkh body fracture status post kyphoplasty. An irregular lytic lesion and the sclerotic changes with cortical enlargement are noted in the L2xbtugxhcp body. No acute fracture identified. Mild to [...] correlation for possible infection. > Dictated by Communication Skills Instructor I, Natan Modi MD have personally reviewed and interpreted this examination/study. > Interpreting Provider: Natan Modi MD on 05/28/2025 10:09 AM Cristian Garcia MD CT ORDERABLES Final Result * TYPE + SCREEN PANEL (05/28/2025 1:26 AM CDT) Pathologist [facility] Antibody Screen NEG 2:26 AM CDT [facility] ABO Rh O POS 05/28/2025 2:26 AM CDT [facility] Blood Bank BLOOD SPECIMEN / Unknown Venipuncture / Unknown 05/28/2025 1:26 AM CDT 05/28/2025 1:46 AM CDT Cristian Garcia MD LAB - BLOOD BANK ORDERABLES F inal Result [facility] [address] [place] [address], [facility] [phone] * (ABNORMAL) COMPREHENSIVE METABOLIC PANEL (05/28/2025 1:26 AM CDT) Pathologist [facility] BUN 14 7 - 26 mg/dL 05/28/2025 2:10 AM CDT [facility] Creatinine 0.86 0.71 - 1.16 mg/dL 05/28/2025 2:10 AM T [facility] Sodium 140 136 - 145 mmol/L 05/28/2025 2:10 AM [facility] Potassium 3.9 3.5 - 4.5 mmol/L 05/28/2025 2:10 AM T [facility] Chloride 110(H) 98 - 107 mmol/L 05/28/2025 2:10 AM T [facility] CO2 24 22 - 29 mmol/L 05/28/2025 2:10 AM [facility] Glucose 107(H) 70 - 99 mg/dL 05/28/2025 2:10 AM [facility] Calcium 8.9 8.4 - 10.2 mg/dL 05/28/2025 2:10 AM [facility] Protein Total 6.3 6.0 - 8.3 g/dL 05/28/2025 2:10 AM [facility] Albumin 4.3 3.4 - 5.0 g/dL 05/28/2025 2:10 AM [facility] Bilirubin Total 0.3 0.2 - 1.2 mg/dL 05/28/2025 2:10 AM [facility] Alkaline Phosphatase 129 40 - 150 U/L 05/28/2025 2:10 AM [facility] ALT 23 5 - 55 U/L 05/28/2025 2:10 AM [facility] AST 25 5 - 34 U/L 05/28/2025 2:10 AM [facility] Anion Gap 6 6 - 16 05/28/2025 2:10 AM [facility] BUN/Creatinine Ratio 16 7 - 23 05/28/2025 2:10 AM [facility] Osmolality Calculated 291 275 - 295 mOsm/kg 05/28/2025 2:10 AM [facility] Albumin/Globulin Ratio 2.2 1.1 - 2.3 05/28/2025 2:10 AM [facility] eGFR by CKD-EPI >90 >=90 mL/min/1.7 3 m2 05/28/2025 2:10 AM [facility] Comment:Estimated Glomerular Filtration Rate (eGFR) calculated using the CKD-EPI Creatinine Equation (2020), per the National Kidney Foundation and Indian Society of Nephrology recommendations. Blood BLOOD SPECIMEN / Unknown Venipuncture / Unknown 05/28/2025 1:26 AM CDT 05/28/2025 1:39 AM [facility] us Cristian Garcia MD LAB - CHEMISTRY ORDERABLES Fi nal Result [facility] [address] [place] [address], [facility] [phone] * MICROALB/CREAT RATIO URINE RANDOM PANEL (06/28/2024 6:31 AM CDT) Albumin Random Urine <5.0 Not Established ug/mL 06/28/2024 9:49 PM CDT [facility] Creatinine Urine 82.62 Not Established mg/dL 06/28/2024 9:49 PM CDT [facility] Urine Albumin/Creati nine Ratio <6 <30 mg/g 06/28/2024 9:49 PM CDT [facility] Albumin/Creati nine Ratio Urine See Comment <30 mg/g 06/28/2024 9:49 PM T [facility] Comment:Unable to calculate the Urine Albumin/Creatinine Ratio due to one or more analyte concentration(s) being outside the measuring limits of the instrument. Urine URINE SPECIMEN OBTAINED BY CLEAN CATCH PROCEDURE / Unknown Collection / Unknown 06/28/2024 6:31 AM CDT 06/28/2024 7:54 PM CDT us Robb Gomez MD LAB - URINE CHEMISTRY ORDERA BLES Final Result [address] [address], [facility] [phone] * HIV-1 HIV-2 ANTIBODY + HIV P24 AG PANEL (06/06/2024 11:59 AM CDT) Pathologist [facility] HIV Antigen/Antibod y 1 & 2 Non-reacti ve Non-react khari 06/06/2024 12:58 PM CDT [facility] Comment:No Laboratory eviden ce of HIV infection. Blood BLOOD SPECIMEN / Unknown Lab Venipuncture / Unknown 06/06/2024 11:59 AM CDT 06/06/2024 12:07 PM CDT us Gina Burt MD LAB - CHEMISTRY ORDERABLES Final Result [facility] [address] [place] [address], [facility] [phone] from Last 3 Months or Most Recently Relevant to Health Maintenance Additional Health Concerns Infection Onset Date Last Indicated 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 Insurance MEDICAID [employer] [facility] Advance Directives Documents on File Type Date Recorded Patient Edge Bonder Expl anation Adv Directive/Living Will/POA 08/13/2024 1:30 [...] 10:06 PM 10/01/2024 2:14 PM Care Teams Rug Layer Relationship Specialty Start Date End Date Matthew Sorenson PA [address] [place] [address] PCP - General 02/02/22
[2025-06-23 08:52] LABS: Hematocrit 53.2 % (40.0-54.0); Hemoglobin 16.5 g/dL (14.0-18.0); Mean Corpuscular HGB Conc 31.0 g/dL (32-36); Mean Corpuscular Hemoglobin 28.7 pg (27.0-31.0); Mean Corpuscular Volume 92.5 fL (78.0-102.0); Platelet Count Result 164 K/mm3 (150-420); Red Blood Count 5.75 M/mm3 (4.70-6.10); White Blood Count 7.7 K/mm3 (4.8-10.8)
[2025-06-23 08:54] VITALS: BP 130/84; PULSE 84; RESP 16; TEMP 36.6; O2SAT 97; BMI 33.7
[2025-06-23 09:04] LABS: Alanine Aminotransferase 43 U/L (6-50); Albumin Level 4.4 g/dL (3.5-5.1); Alkaline Phosphatase 108 U/L (38-126); Anion Gap 7 mmol/L (4-12); Aspartate Amino Transferase 31 U/L (17-59); Bilirubin,Total 0.6 mg/dL (0.2-1.3); Blood Urea Nitrogen 7 mg/dL (9-20); Calcium 9.4 mg/dL (8.4-10.2); Carbon Dioxide 24 mmol/L (22-30); Chloride 107 mmol/L (98-107); Estimated CRCL calculation 156 ml/min; Estimated Glomerular Filt Rate > 60; Glucose 133 mg/dL (65-110); Osmolality Calculated 286 mOsm/kg (285-295); Potassium 4.0 mmol/L (3.4-5.0); Sodium 138 mmol/L (137-145); Total Protein 7.0 g/dL (6.3-8.2)
[2025-06-23] MEDS: ACETAMINOPHEN 325 MG TABLET 650 MG PO (09:14)
[2025-06-23] MEDS: diphenhydrAMINE HCl CAP 25 MG CAPSULE PO (09:14)
[2025-06-23] MEDS: FAMOTIDINE 20 MG TABLET PO (09:15)
[2025-06-23] MEDS: DARATUMUMAB-HYALURONIDASE-FIHJ 1,800 MG-30,000 UNITS VIAL 15 ML SUB-Q (09:48)
[2025-06-23 09:59] VITALS: BP 130/81; PULSE 88; RESP 14; TEMP 36.6; O2SAT 97
--- NOTE | 2025-06-23 10:40 | PC.NURSE ---
Tolerated treatment today well.
== END 2025-06-23 08:25 | disposition home or self-care (01) ==
PROVIDERS: PCP Physician Assistant; Visit Provider Internal Medicine Hematology
DX: Z51.11 Encounter for antineoplastic chemotherapy (principal); C90.00 Multiple myeloma not having achieved remission
CPT/HCPCS: 36415; 80053; 85027; 96401; A9270; J8540; J9144

== ENCOUNTER 2025-06-30 08:22 | Outpatient (CLI) | payer OTHER, SELFPAY ==
--- OUTSIDE RECORDS SUMMARY | 2025-02-19 11:37 | XMS_ITS | Encounter Summary ---
Author Organization [facility] Address [address] [place] [address] Care Team Providers Care Cardiopulmonary Supervisor Name Role Phone Matthew Sorenson Primary Care Provider [phone] Jose Luis Brooks MD Unavailable [phone] Abelardo Presley MD Unavailable [phone] Bo Francisco MD Unavailable [phone] Angie Rogers MD Unavailable Katie GutierrezD Unavailable Unavaila Jaja Casillas RN Unavailable Unavailable Abimbola Waters HYDRAULIC ASSEMBLER-PARENT PARTNER Unavailable [phone] Preri Dexter HYDRAULIC ASSEMBLER-PARENT PARTNER Unavailable [phone] Marilyn Bennett RN Unavailable Unavailable Erasmo Roberson RN Unavailable Unavailable Alexandra Cota RN Unavailable Unavailable Alda Braswell Unavailable Unavailable Lucia Sharif LCSW Unavailable Unavailab le Reason for Referral * (Routine) - Open Specialty Diagnoses / Procedures Referred By Contac t Referred To Contact Procedures Follow up with provider Juan Valencia MD [address] [place] [address] Phone: tel: fax: Referral ID Status Reason Start Date Expiration Date Visits Re quested Visits Authorized [id number] Open 02/19/2025 02/19/2026 1 1 * Radiology Services (Routine) - Open Specialty Diagnoses / Procedures Referred By Contac t Referred To Contact Diagnoses Hepatitis C virus infection without hepatic coma, unspecified chronicity History of multiple myeloma Procedures CT US Guided Needle Placement IR Perc Liver Biopsy Juan Valencia MD [address] [facility] 2L DIV [place] [address] Phone: tel: fax: [facility] [address] [place] [address] Phone: tel: Referral ID Status Reason Start Date Expiration Date Visits Re quested Visits Authorized [id number] Open 02/19/2025 02/19/2026 1 1 Reason for Visit * Auth/Cert (Routine) Specialty Diagnoses / Procedures Referred By Contac t Referred To Contact Diagnoses Chronic hepatitis C without hepatic coma (HCC) Transaminitis Chronic hepatitis C without hepatic coma (HCC) [B18.2] Transaminitis [R74.01] Procedures LA US GUIDED NEEDLE PLACEMENT BIOPSY LIVER (NEEDLE/PERCUTANEOUS) Referral ID Status Reason Start Date Expiration Date Visits Re quested Visits Authorized [id number] 1 1 Encounter Details Date Type Department Care Team (Latest Contact Info) Description 02/19/2025 11:37 AM CDT Hospital Encounter [facility] IVR [address] [place] [id number] Juan Valencia MD [facility] [facility] 2L DIV [place] [address] [facility] Radiology Social History Tobacco Use Types [...] Recorded Patient Health Questionnaire-2 Score 0 11/20/2024 [facility] - [...] place to sleep or slept in a group home (including now)? No 06/04/2024 Housing Stability [...] any time in the past 12 m [facility], were you homeless or living in a group home (including now)? 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 Callum Guerrero MD Director [facility] Vascular & Interventional Radiology 02/20/2025 5:30 AM documented in this encounter Miscellaneous Notes * Clinical References AVS - Richie Alejandro RN - 02/19/2025 1:22 PM CDT Images from the original note were not included. [id number] Liver Biopsy A liver biopsy is when [...] naproxen. ?? Medicines for heart conditions ?? Ckdg-fqz-trnjsfr medicines ?? All prescription medicines ?? Illegal [...] belly Last Reviewed Date: 2023 00:00:00 ?? [id number] [employer]. All rights reserved. This information is not [...] evaluation, please review the evaluation forms in [facility]. For details on monitored clinical parameters during the intra-service sedation time, please review the procedure nurse documentation in [facility]. > Dictated by Seng Gaston MD (Head Of Marketing Adometry) 02/19/2025 12:59 PM Callum Mondragon MD have [...] response to care. Intra-service sedation start time [id number] hours and end time was 1236 hours during which I was present. Total physician intra-service sedation time was 30 minutes. For details on pre moderate sedation and post moderate sedation patient evaluation, please review the evaluation forms in [facility]. For details on monitored clinical parameters during the intra-service sedation time, please review the procedure nurse documentation in [facility]. > Dictated by Seng Gaston MD (Head Of Marketing [employer]ometry) 02/19/2025 12:59 PM Callum Mondragon MD have personally reviewed and interpreted this examination/study. > Interpreting Provider: Callum Guerrero MD on 02/24/2025 5:33 PM Juan Valencia MD CT ORDERABLES Final Result * PATHOLOGY TISSUE (02/19/2025 12:34 PM CDT) Case Report Surgical Pathology Report Case: [id number] Authorizing Provider: Juan Valencia MD Collected: 02/19/2025 12:34 PM Ordering Location: [facility] IVR Received: 02/19/2025 01:06 PM Pathologist: Sammi Escalante MD Specimen: Liver Needle Biopsy, liver bx 02/20/2025 3:50 PM CDT [facility] Final Diagnosis Liver, biopsy (A): - Chronic hepatitis with minimal-mild activity - Steatosis and lobular inflammation without ballooning - Cirrhosis, see comment 02/20/2025 3:50 PM CDT [facility] at 1550 CDT Microscopic [...] 8 (steatosis-1, inflammation-1, ballooning-0). 02/20/2025 3:50 PM [facility] Clinical History The patient is a 44-year-old man with history of hepatitis C infection and appearance of cirrhosis on diagnostic imaging. Operative procedure: Ultrasound-guided random core liver biopsy 02/20/2025 3:50 PM [facility] Gross Description The requisition and specimen(s) are identified with the patient's name, Joselito Nguyen. Received in formalin, specimen A, are two baldwin-pink needle cores, 1.7 and 1.0 cm, both 0.1 cm diameter, submitted in toto in cassette A1. IKD 02/20/2025 3:50 PM [facility] Pathologist Location at [facility] 02/20/2025 3:50 PM [facility] Disclaimer The performance characteristics of all immunohistochemical and indirect immunofluorescence stains (if any) cited in this report were determined by the Histopathology Laboratory of [facility]. Some of these tests were developed by [...] the attending (teaching) pathologist. 02/20/2025 3:50 PM [facility] Collected By Balbir Rdz RN 3:50 PM [facility] Embedded Images 02/20/2025 3:50 PM [facility] Pathology/Cytolo gy NEEDLE BIOPSY OF LIVER / Unknown Collection / Unknown 02/19/2025 12:34 PM CDT 02/19/2025 1:06 PM CDT Comment:LIVER NEEDLE BIOPSY Juan Valencia MD LAB - PATHOLOGY/CYTOLOGY ORDER LISSETH Final Result [facility] [address] [place] [address], [facility] [phone] documented in this encounter Visit Diagnoses Diagnosis [...] documented as of this encounter Care Teams Cardiopulmonary Supervisor Relationship Specialty Start Date End Date Matthew Sorenson PA [address] [place] [address] PCP - General 02/02/22 Jose Luis Brooks MD [address] [place] [address] Business Strategist/Oncologis t Hematology and Oncology 08/29/24 05/27/25 Abelardo Presley MD [address] [place] [address] Hematology and Oncology 08/29/24 03/04/25 Bo Francisco MD [address] [place] [phone] Hematology and Oncology 08/29/24 03/04/25 Angie Rogers MD [address] [place] [phone] Physician Hematology and Oncology 08/29/24 03/04/25 Katie Gutierrez, PharmD 08/29/24 03/04/25 Jaja Rayo, RN Registered Nurse 08/29/24 03/04/25 Abimbola Waters, DAYNA-PARENT PARTNER [address] [place] [phone] Nurse Practitioner Nurse Practitioner 08/29/24 03/04/25 Perri Dexter APRN-CNP [address] [place] [address] Nurse Practitioner Nurse Practitioner 08/29/24 03/04/25 Marilyn Bennett, RN Coordinator 08/29/24 05/27/25 Erasmo Roberson, RN Registered Nurse 08/29/24 03/04/25 Alexandra Cota, RN Registered Nurse 08/29/24 03/04/25 Alda Braswell 08/29/24 03/04/25 Lucia Sharif, HOSPITAL ATTENDANT Wrapping Machine Tender 08/29/24 03/04/25 documented as of this encounter
--- OUTSIDE RECORDS SUMMARY | 2025-06-30 08:29 | XMS_ITS | Clinical Summary ---
Author Organization [facility] Address [address] [address] Phone Care Team Providers Care Agricultural Science Professor Name Role Phone Matthew Sorenson Bebe RAWLS Primary Care Provider [phone] Allergies Active Allergy Reactions Criticality Noted Date [...] Description 07/14/2025 8:30 AM CDT [facility] [address] [facility] [place] [address] Norman Cifuentes MD 2 [facility] [address] [address] 07/14/2025 8:30 AM CDT - 07/14/2025 9:00 AM CDT [facility] [address] [facility] [place] [address] Norman Cifuentes MD 2 [facility] [address] [address] COLONOSCOPY Scheduled Procedures Name Priority Associated Diagnoses [...] age to complete this topic [facility] Care Teams Agricultural Science Professor Relationship Specialty Start Date End Date Matthew Sorenson PAC [address] [place] [address] PCP - General Physician Regrader 04/27/25
--- OUTSIDE RECORDS SUMMARY | 2025-06-30 08:29 | XMS_ITS | Clinical Summary ---
Author Organization [facility] [employer] Address [address] [place] [address] Care Team Providers Care Milk Pickup Truck Driver Name Role Phone Matthew Sorenson Primary Care Provider [phone] Source Comments [facility] [employer]non-owned Affiliates and Associated Physician Practices is amultiple site organization consisting of ambulatory clinics and hospital sitesin [place], [place], [place] and [place]. This disclosure is being madepursuant to the Care Everywhere program and may not contain all information available regarding this patient. Last updated 18.[facility] [employer] Allergies Active Allergy Reactions Criticality Noted Date [...] unspecified USE DIRECTED 1 kit 06/28/20 24 Active Lancets (ONETOUCH DELICA PLUS 33G EXTRA FINE LANCET)Indicat ions:Hyperglyc emia, unspecified USE ONE LANCET 3 TIMES A DAY 100 Each 11 06/28/20 24 Active blood glucose test stripIndicatio ns:Acute post-operative [...] verio strips, Reported on 02/26/2025 Continuous Glucose Yarn Comber (Dexcom G7 Yarn Comber) SONIA as directed Act khari Continuous Glucose [...] once daily Activ e TRUEplus 5-Bevel Pen [place] 31G X 6 MM MIS USE TO [...] days 30 packet 06/01/20 25 025 Active methylPREDNISo lone (Medrol) 4 MG tablet Take 2 (two) tablets by mouth daily with breakfast for 1 day, THEN 1 (one) tablet daily with breakfast for 1 day. 3 tablet 06/01/20 25 025 Active Problems Problem Noted Date Diagnosed Date [...] - 06/15/2025 11:59 PM CDT Hospital Encounter [facility] MRI [address] [place] [address] Robb Wakefield MD Discharge Disposition: Home or Self Care 06/05/2025 Telephone Transitional Care at [address] [phone] Rena Solano RN Missed Appointment 06/02/2025 Telephone Transitional Care at [address] [phone] Malu Noyola MA Question 06/01/2025 Telephone Transitional Care at [address] [address] Rena Solano, lead electrical engineer 06/01/2025 Travel 05/28/2025 Travel 05/27/2025 11:33 PM CDT - 05/31/2025 9:25 AM CDT Hospital Encounter [facility] [address] [place] [phone] Cristian Garcia MD Kent, Saida A, MD Felgenhauer, Joshua, MD Emergency Medicine Discharge Disposition: Home or Self Care 05/04/2025 Refill [facility] [address] [place] [address] Perri Dexter, DAYNA-DIANNE Refill Request 04/03/2025 Travel from Last 3 Months Family History [...] Recorded Patient Health Questionnaire-2 Score 0 11/20/2024 [facility] [place] of Occupat ional Health - Occupational Stress [...] place to sleep or slept in a prison (including now)? No 06/04/2024 Housing Stability Vital [...] were you homeless or living in a prison (including now)? 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 Gender Identity Not on file Sexual Orientation [...] this topic Medical Devices Implanted Type Area Hvac Refrigeration Technician Device Identifier Shelf Expiration Date Model / Serial / Lot Kit Spnl 5.8mm Ney Implanted:Qty: 1 on 07/22/2024 by Arya Rm MD at [facility] N/A: Spine Lumbar Hettinger Spine 10/28/2024 [id number] / / [id number] Kit Bone Cmnt Vertaplex Hv Autoplex Wo Implanted:Qty: 1 on 07/22/2024 by Arya Rm MD at [facility] N/A: Spine Lumbar Dottie Spine 05/29/2025 [id number] / / [id number] Port Implinfn Powerport Clrvu Argd Nya Implanted:Qty: 1 on 08/20/2024 by Vic Callahan MD at [facility] Right: Chest Wall Bard Peripheral Vascular 08/28/2025 [id number] / / [id number] Mixer Bone Cmnt Kyphon C20gm Ll Fit Implanted:Qty: 1 on 12/02/2024 by Arya Rm MD at [facility] N/A: Spine Lumbar Kyphon Inc [id number] / / Cmnt Bone Hv-R Kphx Mxr Grad Mrk Dspns Implanted:Qty: 1 on 12/02/2024 by Arya Rm MD at [facility] N/A: Spine Lumbar Kyphon Inc [id number] / / Graft Bone Grftn Dbm Plif 10x2.5cm Implanted:Qty: 1 on 12/02/2024 by Arya Rm MD at [facility] N/A: Spine Lumbar Osteotech Inc [id number] / / Ezekiel Spnl 500mm 5.5mm Cd Hzn Str Ti Ln Cp Implanted:Qty: 1 on 12/02/2024 by rAya Rm MD at [facility] N/A: Spine Lumbar Medtronic Inc [id number] / / Graft Bone Grftn Dbm Aspt 5x2.5cm Post Implanted:Qty: 1 on 12/02/2024 by Arya Rm MD at [facility] N/A: Spine Lumbar Medtronic Inc [id number] / / Screw Set Ti Spnl Brk Off Cd Hzn Nonster Implanted:Qty: 8 on 12/02/2024 by Arya Rm MD at [facility] N/A: Spine Lumbar Medtronic Inc [id number] / / Screw 7.5mm 55mm Ma Spne Solera Cd Hzn Implanted:Qty: 2 on 12/02/2024 by Arya Rm MD at [facility] N/A: Spine Lumbar Medtronic Inc [id number] / / Screw 7.5mm 50mm Ma Spne Solera Cd Hzn Implanted:Qty: 6 on 12/02/2024 by Arya Rm MD at [facility] Medtronic Inc [id number] / / Slnt Dura Duraseal Pg Trilysine Amine 5 Implanted:Qty: 1 on 12/02/2024 by Arya Rm MD at [facility] N/A: Spine Lumbar Integra Happy DaysciWhotever Thang [id number] / / Explanted Type Area Hvac Refrigeration Technician Device Identifier Shelf Expiration Date Model / Serial / Lot Kit Osteocool Srg 10ga Bone Acc Explanted:Qty: 2 on 07/22/2024 by Arya Rm MD at [facility] N/A: Spine Lumbar Medtronic Inc [id number] / / [id number] Description:Access device, n ot an implant. No other options in system Probe 17ga 20mm Rf Eltx Osteocool 2mm Explanted:Qty: 1 on 07/22/2024 by Arya Rm MD at [facility] N/A: Spine Lumbar Medtronic Inc 03/26/2027 [id number] / / [id number] Description:Access device, n ot an implant. No [...] DATE/TIME OF EXAM: 06/15/2025 10:11 AM, LOCATION [facility] INDICATION: C90.00: Multiple myeloma, remission [...] DATE/TIME OF EXAM: 06/15/2025 10:11 AM, LOCATION [facility] INDICATION: C90.00: Multiple myeloma, remission [...] 0.15 - 1.00 x10E9/L 05/31/2025 8:08 AM [facility] Basophil Absolute 0.25(H) 0.00 - 0.13 x10E9/L 05/31/2025 8:08 AM [facility] RBC Morphology REVIEWED 05/31/2025 8:08 AM [facility] Large Platelets PRESENT(A) (none) 05/31/2025 8:08 AM [facility] Blood BLOOD SPECIMEN / Unknown Lab Venipuncture / Unknown 05/31/2025 6:56 AM CDT 05/31/2025 7:31 AM CDT us Cristian Garcia MD LAB - HEMATOLOGY ORDERABLES F inal Result [facility] [address] [place] [address], [facility] [phone] * (ABNORMAL) CBC W AUTO DIFFERENTIAL (05/31/2025 [...] 11.3 - 14.8 % 05/31/2025 8:08 AM [facility] Platelet Count 216 150 - 420 x10E9/L 05/31/2025 8:08 AM [facility] MPV 11.0 7.8 - 11.4 fL 05/31/2025 8:08 AM [facility] Blood BLOOD SPECIMEN / Unknown Lab Venipuncture / Unknown 05/31/2025 6:56 AM CDT 05/31/2025 7:31 AM CDT us Cristian Garcia MD LAB - HEMATOLOGY ORDERABLES F inal Result [facility] [address] [place] [address], [facility] [phone] * (ABNORMAL) RENAL FUNCTION PANEL (05/31/2025 6:56 [...] 19 7 - 23 05/31/2025 8:02 AM CDT [facility] Osmolality Calculated 288 275 - 295 mOsm/kg 05/31/2025 8:02 AM T [facility] eGFR by CKD-EPI >90 >=90 mL/min/1.7 3 m2 05/31/2025 8:02 AM T [facility] Comment:Estimated Glomerular Filtration Rate (eGFR) calculated using the CKD-EPI Creatinine Equation (2020), per the National Kidney Foundation and [place] Society of Nephrology recommendations. Blood BLOOD SPECIMEN / Unknown Lab Venipuncture / Unknown 05/31/2025 6:56 AM CDT 05/31/2025 7:31 AM CDT Cristian Garcia MD LAB - CHEMISTRY ORDERABLES Fi nal Result [address] [address], [place] [phone] * MAGNESIUM BLOOD (05/31/2025 6:56 AM CDT) Only the most recent of3 resultswithin the time period is included. Magnesium 1.9 1.6 - 2.6 mg/dL 05/31/2025 8:02 AM T [facility] Blood BLOOD SPECIMEN / Unknown Lab Venipuncture / Unknown 05/31/2025 6:56 AM CDT 05/31/2025 7:31 AM CDT Cristian Garcia MD LAB - CHEMISTRY ORDERABLES Fi nal Result [address] [address], [place] [phone] * GLUCOSE - POINT OF CARE (05/31/2025 6:14 AM CDT) Only the most recent of10 resultswithin the time period is included. Glucose WB/POC 98 70 - 99 mg/dL 05/31/2025 6:18 AM CDT [facility] Specimen Type Arterial/C apillary 05/31/2025 6:18 AM CDT [facility] Blood BLOOD SPECIMEN / Unknown 05/31/2025 6:14 AM CDT 05/31/2025 6:18 AM CDT Robb Wakefield MD LAB - POINT OF CARE ORDERA BLES Final Result Performing Organization Address [facility]/State/ZIP Co de Phone Number [facility] [address] [place] [address], [facility] [phone] * HEPATITIS C RNA QUANTITATIVE (05/29/2025 7:04 AM CDT) [facility] Hepatitis C RNA PCR, Interp Not detected Not detected 06/01/2025 10:14 AM CDT [facility] Hepatitis C Quant by PCR, Log NA log IU/mL 06/01/2025 10:14 AM CDT [facility] Blood BLOOD SPECIMEN / Unknown Lab Venipuncture / Unknown 05/29/2025 7:04 AM CDT 05/29/2025 8:58 AM CDT Narrative [facility] - 06/01/2025 10:14 AM CDT The Hepatitis C viral (HCV) RNA analysis utilized a serum sample, real-time reverse cartridge loader PCR, and is reported as Not Detected, [...] the isolation of HCV RNA with reverse cartridge loader of genomic HCV RNA followed by real-time PCR in the presence of an unrelated RNA internal control. The internal control ensures that RNA is isolated, and that no general significant inhibitors of the RT-PCR process are present. The analysis was performed using a U.S. FDA approved test methodology Nahum gomez HCV. Robb Wakefield MD LAB - CHEMISTRY ORDERABLES Final Result [facility] [address] [place] [address], [facility] [phone] * (ABNORMAL) HEMOGLOBIN A1C (05/29/2025 7:04 AM CDT) Hemoglobin A1c 6.1(H) <=5.6 % 05/29/2025 11:58 AM CDT [facility] Estimated Average Glucose 128 mg/dL 05/29/2025 11:58 AM CDT [facility] Comment: HbA1c Interpretation: Normal : < 5.7% Pre-diabetes: 5.7-6.4% Diabetes: Equal to or greater than 6.5% Test results diagnostic of diabetes should be repeated for confirmation. Treatment target values recommended by ADA and other clinical organizations should be used to evaluate metabolic control in patients. Reference: [place] Diabetes Association, Standards of Care in Diabetes [...] Fi nal Result [facility] [address] [place] [address], [facility] [phone] * (ABNORMAL) C-REACTIVE PROTEIN (05/28/2025 1:59 PM CDT) C-Reactive Protein 0.6(H) <=0.5 mg/dL 05/28/2025 2:38 PM CDT [facility] Blood BLOOD SPECIMEN / Unknown Venipuncture / Unknown 05/28/2025 1:59 PM CDT 05/28/2025 2:10 PM CDT us Robb Wakefield MD LAB - CHEMISTRY ORDERABLES Final Result Performing Organization Address City/[facility]/ZIP Co de Phone Number [address] [address], [place] [phone] * ERYTHROCYTE SEDIMENTATION RATE (05/28/2025 1:59 PM CDT) Erythrocyte Sedimentation Rate Dashawnergren 8 0 - 15 MM/HR 05/28/2025 2:32 PM CDT [facility] Blood BLOOD SPECIMEN / Unknown Venipuncture / Unknown 05/28/2025 1:59 PM CDT 05/28/2025 2:10 PM CDT Robb Wakefield MD LAB - HEMATOLOGY ORDERABLE S Final Result Performing Organization Address City/[facility]/ZIP Co de Phone Number [address] [address], [place] [phone] * CT Lumbar Spine Wo Contrast (05/28/2025 [...] correlation for possible infection. > Dictated by Sheet Metal Shop Foreman I, Natan Modi MD have personally reviewed and interpreted this examination/study. > Interpreting Provider: Natan Modi MD on 05/28/2025 10:09 AM Narrative 05/28/2025 10:09 AM CDT PROCEDURE: CT THORACIC SPINE WO CONTRAST, CT LUMBAR SPINE WO CONTRAST, DATE/TIME OF EXAM: 05/28/2025 3:39 AM, LOCATION [facility] INDICATION: M54.6: Acute midline thoracic [...] DATE/TIME OF EXAM: 05/28/2025 3:39 AM, LOCATION [facility] INDICATION: M54.6: Acute midline thoracic [...] L3 on L4. Redemonstration of a chronic X4dygnamazz body fracture status post kyphoplasty. An irregular lytic lesion and the sclerotic changes with cortical enlargement are noted in the E8sqrcdvbse body. No acute fracture identified. Mild to [...] correlation for possible infection. > Dictated by Sheet Metal Shop Foreman I, Natan Modi MD have personally reviewed [...] correlation for possible infection. > Dictated by Sheet Metal Shop Foreman I, Natan Modi MD have personally reviewed and interpreted this examination/study. > Interpreting Provider: Natan Modi MD on 05/28/2025 10:09 AM Narrative 05/28/2025 10:09 AM CDT PROCEDURE: CT THORACIC SPINE WO CONTRAST, CT LUMBAR SPINE WO CONTRAST, DATE/TIME OF EXAM: 05/28/2025 3:39 AM, LOCATION [facility] INDICATION: M54.6: Acute midline thoracic [...] DATE/TIME OF EXAM: 05/28/2025 3:39 AM, LOCATION [facility] INDICATION: M54.6: Acute midline thoracic [...] L3 on L4. Redemonstration of a chronic J4hqybfamvx body fracture status post kyphoplasty. An irregular lytic lesion and the sclerotic changes with cortical enlargement are noted in the B2uweslxeoe body. No acute fracture identified. Mild to [...] correlation for possible infection. > Dictated by Sheet Metal Shop Foreman I, Natan Modi MD have personally reviewed and interpreted this examination/study. > Interpreting Provider: Natan Modi MD on 05/28/2025 10:09 AM us Cristian Garcia MD CT ORDERABLES Final Result * TYPE + SCREEN PANEL (05/28/2025 1:26 AM CDT) Antibody Screen NEG 2:26 AM CDT [facility] ABO Rh O POS 05/28/2025 2:26 AM CDT [facility] Blood Bank BLOOD SPECIMEN / Unknown Venipuncture / Unknown 05/28/2025 1:26 AM CDT 05/28/2025 1:46 AM CDT us Cristian Garcia MD LAB - BLOOD BANK ORDERABLES F inal Result [facility] [address] [place] [address], [facility] [phone] * (ABNORMAL) COMPREHENSIVE METABOLIC PANEL (05/28/2025 1:26 AM CDT) BUN 14 7 - 26 mg/dL 05/28/2025 2:10 AM [facility] Creatinine 0.86 0.71 - 1.16 mg/dL 05/28/2025 2:10 AM [facility] Sodium 140 136 - 145 mmol/L 05/28/2025 2:10 AM [facility] Potassium 3.9 3.5 - 4.5 mmol/L [...] (2020), per the National Kidney Foundation and [place] Society of Nephrology recommendations. Blood BLOOD SPECIMEN / Unknown Venipuncture / Unknown 05/28/2025 1:26 AM CDT 05/28/2025 1:39 AM T Cristian Garcia MD LAB - CHEMISTRY ORDERABLES Fi nal Result [facility] [address] [place] [address], [facility] [phone] * MICROALB/CREAT RATIO URINE RANDOM PANEL (06/28/2024 6:[address] [facility]) Albumin Random Urine <5.0 Not Established ug/mL 06/28/2024 9:49 PM [facility] Creatinine Urine 82.62 Not Established mg/dL 06/28/2024 9:49 PM [facility] Urine Albumin/Creati nine Ratio <6 <30 mg/g 06/28/2024 9:49 PM [facility] Albumin/Creati nine Ratio Urine See Comment <30 mg/g 06/28/2024 9:49 PM [facility] Comment:Unable to calculate the Urine Albumin/Creatinine Ratio due to one or more analyte concentration(s) being outside the measuring limits of the instrument. Urine URINE SPECIMEN OBTAINED BY CLEAN CATCH PROCEDURE / Unknown Collection / Unknown 06/28/2024 6:31 AM CDT 06/28/2024 7:54 PM CDT us Robb Gomez MD LAB - URINE CHEMISTRY ORDERA BLES Final Result Performing Organization Address City/[facility]/ZIP Co de Phone Number [address] [address], [facility] [phone] * HIV-1 HIV-2 ANTIBODY + HIV P24 AG PANEL (06/06/2024 11:59 AM CDT) HIV Antigen/Antibod y 1 & 2 Non-reacti ve Non-react khari 06/06/2024 12:58 PM CDT [facility] Comment:No Laboratory eviden ce of HIV infection. 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
--- OUTSIDE RECORDS SUMMARY | 2025-06-30 08:29 | XMS_ITS | Clinical Summary ---
Author Organization [facility] Address [facility] [place] [address] Care Team Providers Care Account Consultant Name Role Phone Matthew Sorenson Primary Care Provider [phone] Allergies Active Allergy Reactions Criticality Noted Date [...] Sex Assigned at Male 12/17/2024 8:02 PM INVESTIGATOR UTILITY BILL COMPLAINTS Legal Sex Male 9:50 PM INVESTIGATOR UTILITY BILL COMPLAINTS Gender Identity Not on file Sexual Orientation Not on file Last Filed Vital Signs Vital Sign Reading Time Taken Comments Blood Pressure 159/95 12/17/2024 8:05 PM INVESTIGATOR UTILITY BILL COMPLAINTS Pulse 99 12/17/2024 8:05 PM INVESTIGATOR UTILITY BILL COMPLAINTS Temperature 36.7 C (98.1 F) 12/17/2024 6:37 PM INVESTIGATOR UTILITY BILL COMPLAINTS Respiratory Rate 8 12/17/2024 8:05 PM INVESTIGATOR UTILITY BILL COMPLAINTS Oxygen Saturation 99% 12/17/2024 8:05 PM INVESTIGATOR UTILITY BILL COMPLAINTS Inhaled Oxygen Concentration - - Weight 107.2 kg (236 lb 5.3 oz) 12/17/2024 6:37 PM INVESTIGATOR UTILITY BILL COMPLAINTS Height 185.4 cm (6' 1) 12/17/2024 6:37 PM INVESTIGATOR UTILITY BILL COMPLAINTS Body Mass Index 31.18 12/17/2024 6:37 PM INVESTIGATOR UTILITY BILL COMPLAINTS Plan of Treatment Health Maintenance Due Date [...] patient's age to complete this topic Insurance [facility] Care Teams Account Consultant Relationship Specialty Start Date End Date Matthew Sorenson PA PCP - General PHYSICIAN HOT CAR CHARGER 12/17/24
--- OUTSIDE RECORDS SUMMARY | 2025-06-30 08:29 | XMS_ITS ---
Author Organization [facility] Address [address] [facility] [place] [address] Care Team Providers Care Equipment Maintenance Superintendent Name Role Phone Matthew Sorenson Primary Care Provider [phone] Active Problems Problem Noted Date Diagnosed Date [...]
--- OUTSIDE RECORDS SUMMARY | 2025-06-30 08:29 | XMS_ITS | Clinical Summary ---
Author Organization [facility] Address [address] [place] [address] Care Team Providers Care Electrical Lineworker Name Role Phone Matthew Sorenson Primary Care Provider [phone] Matthew Sorenson Unavailable [phone] Allergies Active Allergy Reactions Criticality Noted [...] Description 04/06/2025 9:00 AM CDT Office Visit [facility] Medicine Bone Marrow Transplant [facility] Floor [address] [place] [address] David Santiago MD Multiple myeloma, remission status unspecified (HCC) 04/06/2025 8:00 AM CDT Lab [facility] Oncology Lab [facility] [address] [place] [address] 04/06/2025 7:45 AM CDT Lab [facility] - Lab Collection [facility] Floor [address] [place] [address] Multiple myeloma not having achieved remission (HCC) 04/06/2025 Telephone [facility] Bone Marrow Transplant [address] [place] [address] 6 [place] [address] Agnes Hawkins RN from Last 3 Months Surgical History Surgery [...] on file 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 1.33 0.26 - 1.65 Comment: Interpretive Data The Binding Site FreeLite assay procedure was used. Results from different manufacturers or methods may not be comparable. Serial testing should be performed using the same methods and instrumentation. Current Interpretive Data was last revised on 2023. [place] free light chain [facility] 1.45 0.33 - 1.94 mg/dL [facility] Comment: Interpretive Data The Binding Site FreeLite assay procedure was used. Results from different manufacturers or methods may not be comparable. Serial testing should be performed using the same methods and instrumentation. Current Interpretive Data was last revised on 2023. [place] free light chain [facility] 1.09 0.57 - 2.63 mg/dL [facility] Comment: Interpretive Data The Binding Site [...] Final Resul t USMAN PHILLIPS [facility] Department [place] [address] * (ABNORMAL) CBC with auto differential (04/06/2025 8:04 AM CDT) WBC 7.11 3.80 - 9.90 K/cumm Comment:Testing performed by : [facility], [address] [place] [address] Hgb 16.0 13.0 - 17.5 g/dL USMAN PHILLIPS Comment:Testing performed by : [facility], [address] [place] [address] Hct 47.8 38.9 - 50.3 % CERDOMINIQUE BJ Comment:Testing performed by : [facility], [address] [place] [address] Plt 257 150 - 400 K/cumm USMAN PHILLIPS Comment:Testing performed by : [facility], [address] [place] [address] MPV 9.1 6.8 - 10.4 fL CERDOMINIQUE BJ Comment:Testing performed by : [facility], [address] [place] [address] RBC 5.72 4.30 - 5.80 M/cumm USMAN BJ Comment:Testing performed by : [facility], [address] [place] [address] MCV 83.6 81.3 - 96.4 fL CERDOMINIQUE BJ Comment:Testing performed by : [facility], [address] [place] [address] MCH 28.0 27.1 - 33.3 pg CERDOMINIQUE BJ Comment:Testing performed by : [facility], [address] [place] [address] MCHC 33.5 32.3 - 35.7 g/dL USMAN PHILLIPS Comment:Testing performed by : [facility], [address] [place] [address] RDW CV 15.1(H) 11.1 - 14.9 % USMAN PHILLIPS Comment:Testing performed by : [facility], [address] [place] [address] NRBC abs 0.00 0.00 - 0.01 K/cumm USMAN PHILLIPS Comment:Testing performed by : [facility], [address] [place] [address] Blood 04/06/2025 8:04 AM CDT 04/06/2025 8:09 AM CDT us aDvid Santiago MD LAB BLOOD ORDERABLES Edited Resu lt - Final USMAN [facility] Department [place] [address] * (ABNORMAL) Manual Differential (04/06/2025 8:04 AM CDT) Cells Counted 200 Comment:Testing performed by : [facility], [address] [place] [address] Neutrophil abs 2.84 1.50 - 6.50 K/cumm USMAN PHILLIPS Comment:Testing performed by : [facility], [address] [place] [address] Lymphocyte abs 2.56 0.80 - 3.30 K/cumm USMAN PHILLIPS Comment:Testing performed by : [facility], [address] [place] [address] Monocyte abs 0.71 0.20 - 0.80 K/cumm USMAN PHILLIPS Comment:Testing performed by : [facility], [address] [place] [phone] Eosinophil abs 0.50 0.00 - 0.50 K/cumm CERNER [facility] Comment:Testing performed by : [facility], [address] [place] [phone] Basophil abs 0.21(H) 0.00 - 0.10 K/cumm CERNER [facility] Comment:Testing performed by : [facility], [address] [place] [phone] Neutrophil pct 40.0 % CERNER BJ Comment: Interpretive Data Percent cell count reference ranges are not reported, since discordance with absolute values may lead to misinterpretation of CBC data. Current Interpretive Data was last revised on 2018. Testing performed by: [facility], [address] [place] [phone] Lymphocyte pct 36.0 % CERNER BJ Comment: Interpretive Data Percent cell count reference ranges are not reported, since discordance with absolute values may lead to misinterpretation of CBC data. Current Interpretive Data was last revised on 2018. Testing performed by: [facility], [address] [place] [phone] Monocyte pct 10.0 % CERNER BJ Comment: Interpretive Data Percent cell count reference ranges are not reported, since discordance with absolute values may lead to misinterpretation of CBC data. Current Interpretive Data was last revised on 2018. Testing performed by: [facility], [address] [place] [phone] Eosinophil pct 7.0 % CERNER [facility] Comment: Interpretive Data Percent cell count reference ranges are not reported, since discordance with absolute values may lead to misinterpretation of CBC data. Current Interpretive Data was last revised on 2018. Testing performed by: [facility], [address] [place] [phone] Basophil pct 3.0 % CERNER BJ Comment: Interpretive Data Percent cell count reference ranges are not reported, since discordance with absolute values may lead to misinterpretation of CBC data. Current Interpretive Data was last revised on 2018. Testing performed by: [facility], [address] [place] [phone] Myelocyte pct 1.0(H) 0.0 - 0.0 % [facility] Comment:Testing performed by : [facility], [address] [place] [phone] Variant lymph pct 5.0(H) 0.0 - 0.0 % [facility] Comment:Testing performed by : [facility], [address] [place] [phone] RBC morphology Normal [facility] Comment:Testing performed by : [facility], [address] [place] [phone] Platelet estimate Adequate [facility] Comment:Testing performed by : [facility], [address] [place] [phone] Blood 04/06/2025 8:04 AM CDT 04/06/2025 8:09 AM CDT us David Santiago MD LAB BLOOD ORDERABLES Final Resul t [facility] Department [place] [address] * Protein electrophoresis with reflex, serum with interpretation (04/06/2025 8:04 AM CDT) Protein, sr 6.8 6.2 - 8.2 g/dL Albumin 4.3 3.2 - 5.0 g/dL [facility] Alpha-1 globulin 0.3 0.2 - 0.4 g/dL [facility] Alpha-2 globulin 1.0 0.5 - 1.0 g/dL [facility] Beta-1 globulin 0.4 0.3 - 0.6 g/dL [facility] Beta-2 globulin 0.3 0.2 - 0.6 g/dL [facility] Gamma globulin 0.5 0.5 - 1.7 g/dL [facility] SPEP interp Please see comment USMAN [facility] Comment: No apparent monoclonal peak Reviewed and signed by Jonatan Astorga MD, PhD 04/07/2025 Blood 04/06/2025 8:04 AM CDT 04/06/2025 9:12 AM CDT us David Santiago MD LAB BLOOD ORDERABLES Final Resul t Performing Organization Address City/[facility]/ZIP Co de Phone Number [facility] Department [place] [address] * eGFR (04/06/2025 7:04 AM CDT) eGFR [...] LAB BLOOD ORDERABLES Final Resul t [facility] [place] [address] * Lactate dehydrogenase (LD) (04/06/2025 7:04 AM CDT) Lactate dehydrogenase (LDH) 142 100 - 250 Units/L Blood 04/06/2025 7:04 AM CDT 04/06/2025 8:10 AM CDT us David Santiago MD LAB BLOOD ORDERABLES Final Resul t Performing Organization Address [facility] Co de Phone Number [facility] [place] [address] * (ABNORMAL) IgA (04/06/2025 7:04 AM CDT) Immunoglobulin A <50(L) 70 - 400 mg/dL Blood 04/06/2025 7:04 AM CDT 04/06/2025 8:31 AM CDT us David Santiago MD LAB BLOOD ORDERABLES Final Resul t Performing Organization Address [facility] de Phone Number [facility] [place] [address] * (ABNORMAL) IgM (04/06/2025 7:04 AM CDT) Immunoglobulin M <25(L) 40 - 230 mg/dL Blood 04/06/2025 7:04 AM CDT 04/06/2025 8:31 AM CDT us David Santiago MD LAB BLOOD ORDERABLES Final Resul t Performing Organization Address [facility] de Phone Number [facility] Department [place] [address] * (ABNORMAL) IgG (04/06/2025 7:04 AM CDT) Immunoglobulin G 600(L) 700 - 1,600 mg/dL Blood 04/06/2025 7:04 AM CDT 04/06/2025 8:31 AM CDT David Santiago MD LAB BLOOD ORDERABLES Final Resul t Performing Organization Address [facility] Co de Phone Number [facility] Department [place] [address] * (ABNORMAL) Beta 2 microglobulin, serum (04/06/2025 [...] MD LAB BLOOD ORDERABLES Final Resul t [facility] One [facility] [place] [address] * (ABNORMAL) Comprehensive metabolic panel (04/06/2025 7:04 AM CDT) Pathologist [facility] Sodium 140 135 - 145 mmol/L Potassium, pl 3.9 3.3 - 4.9 mmol/L [facility] Chloride 106 97 - 110 mmol/L [facility] CO2 23 22 - 32 mmol/L [facility] Anion gap 11 2 - 15 mmol/L [facility] BUN 15 6 - 25 mg/dL [facility] Creatinine 0.81 0.80 - 1.30 mg/dL [facility] Glucose 169 70 - 199 mg/dL [facility] Comment: Interpretive Data Fasting glucose [...] 2022. Calcium 9.6 8.5 - 10.3 mg/dL [facility] Bilirubin, total 0.2 0.1 - 1.2 mg/dL CERNER [facility] Protein, pl 7.1 6.5 - 8.5 g/dL C[facility] Albumin 4.4 3.5 - 5.0 g/dL C[facility]ER [facility] Alk phos 199(H) 40 - 130 Units/L [facility] ALT 36 7 - 55 Units/L [facility] AST 19 10 - 50 Units/L CERNER [facility] Blood 04/06/2025 7:04 AM CDT 04/06/2025 8:10 AM CDT us David Santiago MD LAB BLOOD ORDERABLES Final Resul t [facility] Department [place] [address] from Last 3 Months [facility] Care Teams Electrical Lineworker Relationship Specialty Start Date End Date Matthew Sorenson PA [address] [place] [address] PCP - General Family Practice 05/04/23 Matthew Sorenson PA [address] [place] [address] Family Practice 09/12/22
--- OUTSIDE RECORDS SUMMARY | 2025-06-30 08:29 | XMS_ITS | Encounter Summary ---
Author Organization [facility] Address [address] [address] Care Team Providers Care Telescope Repairer Name Role Phone Matthew Sorenson Primary Care Provider [phone] Jose Luis Brooks MD Unavailable [phone] Abelardo Presley MD Unavailable [phone] Bo Francisco MD Unavailable [phone] Angie Rogers MD Unavailable Katie GutierrezD Unavailable Unavaila Jaja Casillas RN Unavailable Unavailable Abimbola Waters TAPE MAKING MACHINE OPERATOR-TIRE CLASSIFIER Unavailable Perri Dexter TAPE MAKING MACHINE OPERATOR-TIRE CLASSIFIER Unavailable [phone] Marilyn Bennett RN Unavailable Unavailable Erasmo Roberson RN Unavailable Unavailable Alexandra Cota RN Unavailable Unavailable Alda Braswell Unavailable Unavailable Lucia Sharif LCSW Unavailable Unavailab le Reason for Visit * Reason Onset Date Comments MEDICATION REFILL 10/20/2024 Encounter Details Date Type Department Care Team (Late st Contact Info) Description 10/20/2024 Refill [facility] [address] [place] [address] Gina Denton MD [address] [place] [address] MEDICATION REFILL Social History Tobacco Use Types Packs/Day Years Used Date Smoking Tobacco: Every Day Cigarettes 1.5 33.9 Started: 08/20/1991 Smokeless Tobacco: Never Alcohol Use [...] Recorded Patient Health Questionnaire-2 Score 1 08/12/2024 [facility] of Occupat ional Health - Occupational [...] place to sleep or slept in a fpc (including now)? No 06/04/2024 Housing Stability Vital Sign Answer Obed e Recorded In the last 12 months, was t here a time when you were not able to pay the mortgage or rent on time? Yes 10/24/2024 In the past 12 months, how m any times have you moved where you were living? 0 10/24/2024 At any time in the past 12 m [facility], were you homeless or living in a fpc (including now)? 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 Gender Identity Not on file Sexual Orientation [...] documented as of this encounter Care Teams Telescope Repairer Relationship Specialty Start Date End Date Matthew Sorenson PA [address] [place] [address] PCP - General 02/02/22 Jose Luis Brooks MD [facility] [place] [address] Shift Lab Technician/Oncologis t Hematology and Oncology 08/29/24 05/27/25 Abelardo Presley MD [facility] [place] [address] Hematology and Oncology 08/29/24 03/04/25 Bo Francisco MD [address] [place] [phone] Hematology and Oncology 08/29/24 03/04/25 Angie Rogers MD [address] [place] [phone] Physician Hematology and Oncology 08/29/24 03/04/25 Katie Gutierrez, PharmD 08/29/24 03/04/25 Jaja Rayo RN Registered Nurse 08/29/24 03/04/25 Abimbola Waters APRN-CNP [address] [place] [address] Nurse Practitioner Nurse Practitioner 08/29/24 03/04/25 Perri Dexter APRN-CNP [address] [place] [phone] Nurse Practitioner Nurse Practitioner 08/29/24 03/04/25 Marilyn Bennett, LOLI Coordinator 08/29/24 05/27/25 Erasmo Roberson, RN Registered Nurse 08/29/24 03/04/25 Alexandra Cota, RN Registered Nurse 08/29/24 03/04/25 Alda Braswell 08/29/24 03/04/25 Lucia Sharif, LICENSED NURSE PRACTITIONER Office Administration 08/29/24 03/04/25 documented as of this encounter
--- OUTSIDE RECORDS SUMMARY | 2025-06-30 08:29 | XMS_ITS | Encounter Summary ---
Author Organization [facility] Address [address] [place] [address] Care Team Providers Care Community Service Technician Name Role Phone Matthew Sorenson Primary Care Provider [phone] Joes Luis Brooks MD Unavailable [phone] Abelardo Presley MD Unavailable [phone] Bo Francisco MD Unavailable [phone] Angie Rogers MD Unavailable Katie GutierrezD Unavailable Unavaila Jaja Casillas RN Unavailable Unavailable Abimbola Waters JINRIKSHA DRIVER-LANDSCAPE MANAGEMENT TECHNICIAN Unavailable [phone] Perri Dexter JINRIKSHA DRIVER-LANDSCAPE MANAGEMENT TECHNICIAN Unavailable [phone] Marilyn Bennett RN Unavailable Unavailable Erasmo Roberson RN Unavailable Unavailable Alexandra Cota RN Unavailable Unavailable Alda Braswell Unavailable Unavailable Lucia Sharif LCSW Unavailable Unavailab le Reason for Visit * Reason Onset Date Comments MEDICATION REFILL 10/20/2024 Encounter Details Date Type Department Care Team (Late st Contact Info) Description 10/20/2024 Refill [facility] - Hematology/Oncology [address] [place] [address] Jose Luis Brooks MD [address] [facility] [place] [address] MEDICATION REFILL Social History Tobacco [...] Recorded Patient Health Questionnaire-2 Score 1 08/12/2024 [facility] of Occupat ional Health - [...] time in the past 12 m [facility], were you homeless or living in a detention (including now)? 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 Gender Identity Not on file Sexual [...] documented as of this encounter Care Teams Community Service Technician Relationship Specialty Start Date End Date Matthew Sorenson PA [address] [place] [address] PCP - General 02/02/22 Jose Luis Brooks MD [address] [place] [address] Rn Testing/Oncologis t Hematology and Oncology 08/29/24 05/27/25 Abelardo Presley MD [address] [place] [address] Hematology and Oncology 08/29/24 03/04/25 Bo Francisco MD [address] [place] [phone] Hematology and Oncology 08/29/24 03/04/25 Angie Rogers MD [address] [place] [phone] Physician Hematology and Oncology 08/29/24 03/04/25 Katie Gutierrez, PharmD 08/29/24 03/04/25 Jaja Rayo RN Registered Nurse 08/29/24 03/04/25 Abimbola Waters APRN-CNP [facility] [place] [address] Nurse Practitioner Nurse Practitioner 08/29/24 03/04/25 Perri Dexter APRN-CNP [address] [place] [phone] Nurse Practitioner Nurse Practitioner 08/29/24 03/04/25 Marilyn Bennett, RN Coordinator 08/29/24 05/27/25 Erasmo Roberson, RN Registered Nurse 08/29/24 03/04/25 Alexandra Cota, RN Registered Nurse 08/29/24 03/04/25 Alda Braswell 08/29/24 03/04/25 Lucia Sharif, RETAIL ASSISTANT STORE MANAGER Milling Machine Operator 08/29/24 03/04/25 documented as of this encounter
[2025-06-30 08:34] VITALS: BP 138/76; PULSE 70; RESP 14; TEMP 36.8; O2SAT 98; BMI 33.7
[2025-06-30 08:43] LABS: Hematocrit 48.6 % (40.0-54.0); Hemoglobin 15.9 g/dL (14.0-18.0); Mean Corpuscular HGB Conc 32.7 g/dL (32-36); Mean Corpuscular Hemoglobin 28.5 pg (27.0-31.0); Mean Corpuscular Volume 87.3 fL (78.0-102.0); Platelet Count Result 180 K/mm3 (150-420); Red Blood Count 5.57 M/mm3 (4.70-6.10); White Blood Count 5.8 K/mm3 (4.8-10.8)
[2025-06-30] MEDS: FAMOTIDINE 20 MG TABLET PO (08:55)
[2025-06-30] MEDS: ACETAMINOPHEN 325 MG TABLET 650 MG PO (08:55)
[2025-06-30] MEDS: diphenhydrAMINE HCl CAP 25 MG CAPSULE PO (08:55)
[2025-06-30 08:56] LABS: Alanine Aminotransferase 33 U/L (6-50); Albumin Level 4.3 g/dL (3.5-5.1); Alkaline Phosphatase 106 U/L (38-126); Anion Gap 10 mmol/L (4-12); Aspartate Amino Transferase 25 U/L (17-59); Bilirubin,Total 0.6 mg/dL (0.2-1.3); Blood Urea Nitrogen 7 mg/dL (9-20); Calcium 9.4 mg/dL (8.4-10.2); Carbon Dioxide 25 mmol/L (22-30); Chloride 105 mmol/L (98-107); Estimated CRCL calculation 137 ml/min; Estimated Glomerular Filt Rate > 60; Glucose 171 mg/dL (65-110); Osmolality Calculated 292 mOsm/kg (285-295); Potassium 4.0 mmol/L (3.4-5.0); Sodium 140 mmol/L (137-145); Total Protein 6.6 g/dL (6.3-8.2)
[2025-06-30] MEDS: DARATUMUMAB-HYALURONIDASE-FIHJ 1,800 MG-30,000 UNITS VIAL 15 ML SUB-Q (09:24)
[2025-06-30 10:16] VITALS: BP 130/74; PULSE 72; RESP 16; TEMP 36.6; O2SAT 97
--- NOTE | 2025-06-30 10:16 | PC.NURSE ---
Patient tolerated daratumumab hyaluronidase injection treatment well. SEE MAR/patient care notes.
== END 2025-06-30 08:23 | disposition home or self-care (01) ==
PROVIDERS: PCP Physician Assistant; Visit Provider Internal Medicine Hematology
DX: Z51.11 Encounter for antineoplastic chemotherapy (principal); C90.00 Multiple myeloma not having achieved remission
CPT/HCPCS: 36415; 80053; 85027; 96401; A9270; J8540; J9144

== ENCOUNTER 2025-07-07 08:36 | Outpatient (CLI) | payer OTHER, SELFPAY ==
[2025-07-07 08:45] VITALS: BMI 33.7
[2025-07-07 08:58] LABS: Hematocrit 48.9 % (40.0-54.0); Hemoglobin 15.7 g/dL (14.0-18.0); Mean Corpuscular HGB Conc 32.1 g/dL (32-36); Mean Corpuscular Hemoglobin 28.5 pg (27.0-31.0); Mean Corpuscular Volume 88.9 fL (78.0-102.0); Platelet Count Result 210 K/mm3 (150-420); Red Blood Count 5.50 M/mm3 (4.70-6.10); White Blood Count 5.6 K/mm3 (4.8-10.8)
[2025-07-07 09:05] VITALS: BP 149/79; PULSE 72; RESP 16; TEMP 36.6; O2SAT 99
[2025-07-07 09:10] LABS: Alanine Aminotransferase 69 U/L (6-50); Albumin Level 4.2 g/dL (3.5-5.1); Alkaline Phosphatase 118 U/L (38-126); Anion Gap 12 mmol/L (4-12); Aspartate Amino Transferase 37 U/L (17-59); Bilirubin,Total 0.5 mg/dL (0.2-1.3); Blood Urea Nitrogen 12 mg/dL (9-20); Calcium 9.1 mg/dL (8.4-10.2); Carbon Dioxide 21 mmol/L (22-30); Chloride 106 mmol/L (98-107); Estimated CRCL calculation 140 ml/min; Estimated Glomerular Filt Rate > 60; Glucose 220 mg/dL (65-110); Osmolality Calculated 294 mOsm/kg (285-295); Potassium 3.9 mmol/L (3.4-5.0); Sodium 139 mmol/L (137-145); Total Protein 6.5 g/dL (6.3-8.2)
[2025-07-07 09:35] VITALS: TEMP 36.6
[2025-07-07] MEDS: ACETAMINOPHEN 325 MG TABLET 650 MG PO (09:35)
[2025-07-07] MEDS: FAMOTIDINE 20 MG TABLET PO (09:35)
[2025-07-07] MEDS: diphenhydrAMINE HCl CAP 25 MG CAPSULE PO (09:55)
[2025-07-07] MEDS: DARATUMUMAB-HYALURONIDASE-FIHJ 1,800 MG-30,000 UNITS VIAL 15 ML SUB-Q (10:20)
[2025-07-07] MEDS: DENOSUMAB 120 MG/1.7 ML VIAL SUB-Q (10:21)
[2025-07-07 10:35] VITALS: BP 136/80; PULSE 80; RESP 14; TEMP 36.6; O2SAT 98
--- NOTE | 2025-07-07 10:36 | PC.NURSE ---
Tolerated treatment well today. SEE MAR/patient care notes.
[2025-07-08 12:08] LABS: Immunoglobulin A, Qn 19 mg/dL (90-386); Immunoglobulin G, Qn 448 mg/dL (603-1613); Immunoglobulin M, Qn 11 mg/dL (20-172)
[2025-07-08 18:08] LABS: Free Lambda Lt Chains, Serum 4.2 mg/L (5.7-26.3); Kappa/Lambda Ratio, Serum 1.69 (0.26-1.65)
[2025-07-09 12:08] LABS: Albumin 3.7 g/dL (2.9-4.4); Alpha-1-Globulin 0.2 g/dL (0.0-0.4); Alpha-2-Globulin 1.0 g/dL (0.4-1.0); Gamma Globulin 0.3 g/dL (0.4-1.8)
[2025-07-09 14:08] LABS: Immunoglobulin A, Qn 20 mg/dL (90-386); Immunoglobulin G, Qn 441 mg/dL (603-1613); Immunoglobulin M, Qn 11 mg/dL (20-172)
== END 2025-07-07 08:37 | disposition home or self-care (01) ==
PROVIDERS: PCP Physician Assistant; Visit Provider Internal Medicine Hematology
DX: Z51.11 Encounter for antineoplastic chemotherapy (principal); C90.00 Multiple myeloma not having achieved remission
CPT/HCPCS: 36415; 80053; 82784; 83521; 84155; 84165; 85027; 86334; 96372; 96401; A9270; J0897; J8540; J9144

== ENCOUNTER 2025-07-21 08:22 | Outpatient (CLI) | payer OTHER, SELFPAY ==
--- OUTSIDE RECORDS SUMMARY | 2025-02-19 11:37 | XMS_ITS | Encounter Summary ---
Author Organization [facility] Address [address] [facility] [place] [address] Care Team Providers Care Bi Tester Name Role Phone Matthew Sorenson Primary Care Provider [phone] Jose Luis Brooks MD Unavailable Abelardo Presley MD Unavailable [phone] Bo Francisco MD Unavailable [phone] Angie Rogers MD Unavailable Katie GutierrezD Unavailable Unavaila Jaja Casillas RN Unavailable Unavailable Abimbola Waters ATTIC FANS MECHANIC-HELPER SHEAR OPERATOR Unavailable [phone] Perri Dexter ATTIC FANS MECHANIC-HELPER SHEAR OPERATOR Unavailable [phone] Marilyn Bennett RN Unavailable Unavailable Erasmo Roberson RN Unavailable Unavailable Alexandra Cota RN Unavailable Unavailable Alda Braswell Unavailable Unavailable Lucia Sharif LCSW Unavailable Unavailab le Reason for Referral * (Routine) - Open Specialty Diagnoses / Procedures Referred By Contac t Referred To Contact Procedures Follow up with provider Juan Valencia MD [address] [place] [address] Phone: tel: fax: Referral ID Status Reason Start Date Expiration Date Visits Re quested Visits Authorized [id number] Open 02/19/2025 02/19/2026 1 1 * Radiology Services (Routine) - Open Specialty Diagnoses / Procedures Referred By Contac t Referred To Contact Diagnoses Hepatitis C virus infection without hepatic coma, unspecified chronicity History of multiple myeloma Procedures CT US Guided Needle Placement IR Perc Liver Biopsy Juan Valencia MD [address] [facility] [address] [place] [address] Phone: tel: fax: [facility] [address] [place] [address] Phone: tel: Referral ID Status Reason Start Date Expiration Date Visits Re quested Visits Authorized [id number] Open 02/19/2025 02/19/2026 1 1 Reason for Visit * Auth/Cert (Routine) Specialty Diagnoses / Procedures Referred By Contac t Referred To Contact Diagnoses Chronic hepatitis C without hepatic coma (HCC) Transaminitis Chronic hepatitis C without hepatic coma (HCC) [B18.2] Transaminitis [R74.01] Procedures MD US GUIDED NEEDLE PLACEMENT BIOPSY LIVER (NEEDLE/PERCUTANEOUS) Referral ID Status Reason Start Date Expiration Date Visits Re quested Visits Authorized [id number] 1 1 Encounter Details Date Type Department Care Team (Latest Contact Info) Description 02/19/2025 11:37 AM CDT Hospital Encounter [facility] [address] [place] [phone] Juan Valencia MD [facility] [address] [place] [address] [facility] Radiology Social History Tobacco Use Types Packs/Day Years Used Date Smoking Tobacco: Former Cigarettes 1.5 33.9 S tarted: 08/20/1991 Passive Smoke Exposure: Past [...] Recorded Patient Health Questionnaire-2 Score 0 11/20/2024 [facility] - Occupational Stress [...] No 11/23/2024 Housing Stability Vital Sign Answer Boed e Recorded In the last 12 months, [...] place to sleep or slept in a nursing home (including now)? No 06/04/2024 Housing Stability Vital Sign Answer Obed e Recorded In the last 12 months, was t here a time when you were not able to pay the mortgage or rent on time? Yes 11/23/2024 In the past 12 months, how m any times have you moved where you were living? 0 11/23/2024 At any time in the past 12 m [facility], were you homeless or living in a nursing home (including now)? No 11/23/2024 Sex and Gender Information Value Date Recorded Sex Assigned at Not on file Legal Sex Male 11:44 AM HAND DRAWER IN Gender Identity Not on file Sexual Orientation [...] documented in this encounter Functional Status * Is person deaf or have serious hearing difficulty? Answer Date of Assessment Author No 02/19/2025 1:20 PM CDT Richie Alejandro RN * Is person blind or have serious difficulty seeing? Answer Date of Assessment Author No 02/19/2025 1:20 PM CDT Richie Alejandro RN * Does person have serious difficulty walking/climbing stairs? Answer Date of Assessment Author No 02/19/2025 1:20 PM CDT Richie Alejandro RN * Does person have difficulty dressing/bathing? Answer Date of Assessment Author No 02/19/2025 1:20 PM CDT Richie Alejandro RN * Does person have difficulty doing errands alone? Answer Date of Assessment Author No 02/19/2025 1:20 PM CDT Richie Alejandro RN documented as of this encounter Mental [...] Patient: Joselito Nguyen Attending: Callum Guerrero MD Cardiac Nurse Practitioner: Seng Gaston MD Diagnosis/Indication: hx of hep [...] for the entire procedure. Callum Guerrero MD Desulfurizer Operator Vascular & Interventional Radiology 02/20/2025 5:30 AM documented in this encounter Miscellaneous Notes * Clinical References AVS - Richie Alejandro RN - 02/19/2025 1:22 PM CDT Images from the original note were not included. [id number] Liver Biopsy A liver biopsy is when [...] naproxen. ?? Medicines for heart conditions ?? Lewz-myx-lkguyyf medicines ?? All prescription medicines ?? Illegal [...] belly Last Reviewed Date: 2023 00:00:00 ?? [id number] [employer]. All rights reserved. This information is not [...] evaluation, please review the evaluation forms in [facility]. For details on monitored clinical parameters during the intra-service sedation time, please review the procedure nurse documentation in [facility]. > Dictated by Seng Gaston MD (Veterinarian Epidemiologist) 02/19/2025 12:59 PM Callum Mondragon MD have [...] pending at the time of this dictation. Giancarlo, Dr. Guerrero, was present and performed/supervised the entireprocedure. Moderate sedation on this patient was ordered by me, administered intravenously in my presence, and monitored by the procedure nurse as an independent trained observer who was present throughout the procedure.The following parameters were monitored: oxygen saturation, heart rate,blood pressure, and response to care. Intra-service sedation start time [id number] hours and end time was 1236 hours during which I was present. Total physician intra-service sedation time was 30 minutes. For details on pre moderate sedation and post moderate sedation patient evaluation, please review the evaluation forms in [facility]. For details on monitored clinical parameters during the intra-service sedation time, please review the procedure nurse documentation in [facility]. > Dictated by Seng Gaston MD (Veterinarian Epidemiologist) 02/19/2025 12:59 PM Callum Mondragon MD have personally reviewed and interpreted this examination/study. > Interpreting Provider: Callum Guerrero MD on 02/24/2025 5:33 PM Juan Valencia MD CT ORDERABLES Final Result * PATHOLOGY TISSUE (02/19/2025 12:34 PM CDT) Case Report Surgical Pathology Report Case: [id number] Authorizing Provider: Juan Valencia MD Collected: 02/19/2025 12:34 PM Ordering Location: [facility] Received: 02/19/2025 01:06 PM Pathologist: Sammi Escalante MD Specimen: Liver Needle Biopsy, liver bx 02/20/2025 3:50 PM CDT [facility] Final Diagnosis Liver, biopsy (A): - Chronic hepatitis with minimal-mild activity - Steatosis and lobular inflammation without ballooning - Cirrhosis, see comment 02/20/2025 3:50 PM CDT [facility] at 1550 CDT Microscopic [...] 8 (steatosis-1, inflammation-1, ballooning-0). 02/20/2025 3:50 PM [facility] Clinical History The patient is a 44-year-old man with history of hepatitis C infection and appearance of cirrhosis on diagnostic imaging. Operative procedure: Ultrasound-guided random core liver biopsy 02/20/2025 3:50 PM [facility] Gross Description The requisition and specimen(s) are identified with the patient's name, Joselito Nguyen. Received in formalin, specimen A, are two baldwin-pink needle cores, 1.7 and 1.0 cm, both 0.1 cm diameter, submitted in toto in cassette A1. IKD 02/20/2025 3:50 PM [facility] Pathologist Location at [facility] 02/20/2025 3:50 PM [facility] Disclaimer The performance characteristics of all immunohistochemical and indirect immunofluorescence stains (if any) cited in this report were determined by the Histopathology Laboratory of [facility]. Some of these tests were developed by [...] the attending (teaching) pathologist. 02/20/2025 3:50 PM [facility] Collected By Balbir Rdz RN 3:50 PM [facility] Embedded Images 02/20/2025 3:50 PM [facility] Pathology/Cytolo gy NEEDLE BIOPSY OF LIVER / Unknown Collection / Unknown 02/19/2025 12:34 PM CDT 02/19/2025 1:06 PM CDT Comment:LIVER NEEDLE BIOPSY Juan Valencia MD LAB - PATHOLOGY/CYTOLOGY ORDER LISSETH Final Result [facility] [address] [place] [address], [facility] [phone] documented in this encounter Visit Diagnoses Diagnosis [...] documented as of this encounter Care Teams Bi Tester Relationship Specialty Start Date End Date Matthew Sorenson PA [address] [place] [address] PCP - General 02/02/22 Jose Luis Brooks MD [address] [place] [address] Count Team Clerk/Oncologis t Hematology and Oncology 08/29/24 05/27/25 Abelardo Presley MD [address] [place] [address] Hematology and Oncology 08/29/24 03/04/25 Bo Francisco MD [address] [place] [phone] Hematology and Oncology 08/29/24 03/04/25 Angie Rogers MD [address] [place] [phone] Physician Hematology and Oncology 08/29/24 03/04/25 Katie Gutierrez, PharmD 08/29/24 03/04/25 Jaja Rayo, RN Registered Nurse 08/29/24 03/04/25 Abimbola Waters, DAYNA-HELPER SHEAR OPERATOR [address] [place] [phone] Nurse Practitioner Nurse Practitioner 08/29/24 03/04/25 Perri Dexter APRN-CNP [address] [place] [address] Nurse Practitioner Nurse Practitioner 08/29/24 03/04/25 Marilyn Bennett, RN Coordinator 08/29/24 05/27/25 Erasmo Roberson, RN Registered Nurse 08/29/24 03/04/25 Alexandra Cota, RN Registered Nurse 08/29/24 03/04/25 Alda Braswell 08/29/24 03/04/25 Lucia Sharif, CULINARY WORKER Social Science Teacher 08/29/24 03/04/25 documented as of this encounter
[2025-07-21 08:38] LABS: Hematocrit 47.8 % (40.0-54.0); Hemoglobin 15.6 g/dL (14.0-18.0); Mean Corpuscular HGB Conc 32.6 g/dL (32-36); Mean Corpuscular Hemoglobin 28.5 pg (27.0-31.0); Mean Corpuscular Volume 87.2 fL (78.0-102.0); Platelet Count Result 178 K/mm3 (150-420); Red Blood Count 5.48 M/mm3 (4.70-6.10); White Blood Count 8.6 K/mm3 (4.8-10.8)
[2025-07-21 08:41] VITALS: BP 107/69; PULSE 80; RESP 16; TEMP 36.6; O2SAT 97; BMI 34.0
--- OUTSIDE RECORDS SUMMARY | 2025-07-21 08:44 | XMS_ITS | Clinical Summary ---
Author Organization [facility] Address [address] [place] [address] Care Team Providers Care Chip Unloader Name Role Phone Matthew Sorenson Primary Care Provider [phone] Matthew Sorenson Unavailable [phone] Allergies Active Allergy Reactions Criticality Noted Date Comments Morphine Itching,Rash Medium 11/23/2024 Vancomycin Rash,Redness Medium 10/26/2024 Red man's syndrome Medications ketorolac (TORADOL) 10 mg tablet Take 1 tablet (10 mg total) by mouth 3 (three) times a day as needed for pain Take with food. 15 tablet 09/12/20 22 Active ibuprofen (ADVIL,MOTRIN) 600 mg tabletIndicati ons:Pain Take 1 tablet (600 mg total) by mouth every 6 (six) hours as needed for pain 30 tablet 05/04/20 23 Active acyclovir (ZOVIRAX) 400 mg tablet TAKE 1 (ONE) TABLET BY MOUTH 2 TIMES DAILY 03/02/20 25 Active amLODIPine (NORVASC) 10 mg tablet TAKE 1 (ONE) TABLET BY MOUTH ONCE DAILY NEED TO FOLLOW WITH PRIMARY CARE 01/14/20 25 Active Eliquis 5 mg tablet TAKE 1 (ONE) TABLET BY MOUTH 2 TIMES DAILY 10/01/20 24 Active baclofen (LIORESAL) 5 mg tablet Take 1 tablet (5 mg total) by mouth 3 (three) times a day Active buPROPion SR (WELLBUTRIN SR) 150 mg 12 hr tablet Take 1 tablet twice a day by oral route for 90 days. 01/24/20 22 Active carvediloL (COREG) 12.5 mg tablet TAKE 1 TABLET TWICE A DAY BY ORAL ROUTE FOR 90 DAYS. 12/26/19 25 Active cyclobenzaprin e (FLEXERIL) 10 mg tablet Take by mouth 3 (three) times a day as needed Active Jardiance 25 mg tablet Take 1 tablet (25 mg total) by mouth daily 01/27/20 25 Active famotidine (PEPCID) 40 mg tablet Take 1 tablet (40 mg total) by mouth daily 12/10/19 25 Active fexofenadine (ROMAN) 180 mg tablet Take 1 tablet (180 mg total) by mouth daily Active gabapentin (NEURONTIN) 300 mg capsule PLEASE SEE ATTACHED FOR DETAILED DIRECTIONS 01/14/20 25 Active NovoLOG 100 unit/mL (3 mL) pen for injection Inject 5 Units under the skin 12/24/19 25 Active LANTUS 100 unit/mL (3 mL) pen for injection INJECT 10 UNITS SUBCUTANEOUSLY DAILY 10/01/20 24 Active insulin glargine 100 unit/mL (3 mL) pen for injection INJECT 10 UNITS INTO THE SKIN ONCE DAILY Active losartan (COZAAR) 100 mg tablet Take 1 tablet (100 mg total) by mouth daily 01/02/20 25 Active methocarbamoL (ROBAXIN) 500 mg tablet TAKE 1.5 (ONE AND ONE-HALF) TABLETS BY MOUTH 3 TIMES DAILY NEEDED FOR MUSCLE SPASMS Active mirtazapine (REMERON) 15 mg tablet Take 1 tablet (15 mg total) by mouth nightly 01/16/20 25 Active OxyCONTIN 20 mg 12 hr abuse-deterren t tablet Take 1 tablet (20 mg total) by mouth every 12 (twelve) hours 01/15/20 25 Active oxyCODONE (ROXICODONE) 20 mg tablet Take 1 tablet (20 mg total) by mouth every 12 (twelve) hours 03/20/20 25 Active oxyCODONE-acet aminophen (PERCOCET) 5-325 mg per tablet Take by mouth every 6 (six) hours as needed Active sertraline (ZOLOFT) 50 mg tablet Take 1 tablet (50 mg total) by mouth daily 11/05/19 25 Active traMADoL (ULTRAM) 50 mg tablet Active [...] 2 TIMES A DAY FOR 10 DAYS 06/09/20 24 Active prochlorperazi ne (COMPAZINE) 10 mg tablet Take 1 tablet (10 mg total) by mouth every 6 (six) hours as needed 01/14/20 25 Active ondansetron (ZOFRAN) 8 mg tablet Take 1 tablet (8 mg total) by mouth Active lidocaine (ASPERCREME) 4 % adhesive patch,medicate d Place 1 patch on the skin daily 10/14/20 24 Active hydrOXYzine (ATARAX) 25 mg tablet TAKE 1 (ONE) TABLET BY MOUTH 4 TIMES DAILY NEEDED FOR ITCHING 10/14/20 24 Active Dexcom G7 Sensor device as directed 03/26/20 25 Active docusate sodium (COLACE) 100 mg capsule Take 1 capsule (100 mg total) by mouth 2 (two) times a day 01/02/20 25 Active hydrOXYzine (ATARAX) 25 mg tablet Take 1 tablet (25 mg total) by mouth 3 (three) times a day as needed for itching Active doxycycline 100 mg capsule Take 1 tablet/capsule (100 mg total) by mouth 2 (two) times a day 01/20/20 25 025 Active Problems Problem Noted Date [...] current use of insulin 06/28/2024 Hypertension 06/03/2024 Surgical History Surgery Date Site/Laterality Comments PORT [...] on file 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 Department [place] [address] from Last 3 Months or Most Recently Relevant to Health Maintenance Insurance [facility] Care Teams Chip Unloader Relationship Specialty Start Date End Date Matthew Sorenson PA [address] [place] [address] PCP - General Family Practice 05/04/23 Matthew Sorenson PA [address] [place] [address] Family Practice 09/12/22
--- OUTSIDE RECORDS SUMMARY | 2025-07-21 08:44 | XMS_ITS | Encounter Summary ---
Author Organization [facility] Address [address] [place] [address] Care Team Providers Care Project Technician Name Role Phone Matthew Sorenson Primary Care Provider [phone] Jose Luis Brooks MD Unavailable [phone] Abelardo Presley MD Unavailable [phone] Bo Francisco MD Unavailable [phone] Angie Rogers MD Unavailable Katie GutierrezD Unavailable Unavaila Jaja Casillas RN Unavailable Unavailable Abimbola Waters DROP FORGE HAND-RFID SPECIALIST Unavailable [phone] Perri Dexter DROP FORGE HAND-RFID SPECIALIST Unavailable [phone] Marilyn Bennett RN Unavailable Unavailable Erasmo Roberson RN Unavailable Unavailable Alexandra Cota RN Unavailable Unavailable Alda Braswell Unavailable Unavailable Lucia Sharif LCSW Unavailable Unavailab le Reason for Visit * Reason Onset Date Comments MEDICATION REFILL 10/20/2024 Encounter Details Date Type Department Care Team (Late st Contact Info) Description 10/20/2024 Refill Luigi LOUISE [address] [place] [address] Gina Denton MD [address] [place] [address] MEDICATION REFILL Social History Tobacco Use Types [...] Recorded Patient Health Questionnaire-2 Score 1 08/12/2024 [facility] - Occupational Stress [...] place to sleep or slept in a long-term (including now)? No 06/04/2024 Housing Stability Vital Sign Answer Obed e Recorded In the last 12 months, was t here a time when you were not able to pay the mortgage or rent on time? Yes 10/24/2024 In the past 12 months, how m any times have you moved where you were living? 0 10/24/2024 At any time in the past 12 m [facility], were you homeless or living in a long-term (including now)? 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 Gender Identity Not on file Sexual Orientation [...] documented as of this encounter Care Teams Project Technician Relationship Specialty Start Date End Date Matthew Sorenson PA [address] [place] [address] PCP - General 02/02/22 Jose Luis Brooks MD [facility] [place] [address] Case Managers/Oncologis t Hematology and Oncology 08/29/24 05/27/25 Abelardo Presley MD [facility] [place] [address] Hematology and Oncology 08/29/24 03/04/25 Bo Francisco MD [address] [place] [phone] Hematology and Oncology 08/29/24 03/04/25 Angie Rogers MD [address] [place] [phone] Physician Hematology and Oncology 08/29/24 03/04/25 Katie Gutierrez, PharmD 08/29/24 03/04/25 Jaja Rayo RN Registered Nurse 08/29/24 03/04/25 Abimbola Waters APRN-CNP [address] [place] [address] Nurse Practitioner Nurse Practitioner 08/29/24 03/04/25 Perri Dexter APRN-CNP [address] [place] [phone] Nurse Practitioner Nurse Practitioner 08/29/24 03/04/25 Marilyn Bennett, LOLI Coordinator 08/29/24 05/27/25 Erasmo Roberson, RN Registered Nurse 08/29/24 03/04/25 Alexandra Cota, RN Registered Nurse 08/29/24 03/04/25 Alda Braswell 08/29/24 03/04/25 Lucia Sharif, RADIO DIVISION CAPTAIN Concrete Placement Equipment Operator 08/29/24 03/04/25 documented as of this encounter
--- OUTSIDE RECORDS SUMMARY | 2025-07-21 08:44 | XMS_ITS ---
Author Organization [facility] Address [address] [facility] [place] [address] Care Team Providers Care Radiation Physicist Name Role Phone Matthew Sorenson Primary Care Provider [phone] Active Problems Problem Noted Date Diagnosed Date [...]
--- OUTSIDE RECORDS SUMMARY | 2025-07-21 08:44 | XMS_ITS | Clinical Summary ---
Author Organization [facility] [employer] Address [address] [place] [address] Care Team Providers Care Photoengraver Apprentice Name Role Phone Matthew Sorenson Primary Care Provider [phone] Source Comments [facility] [employer],non-owned Affiliates and Associated Physician Practices is amultiple site organization consisting of ambulatory clinics and hospital sitesin [place], [place], [place] and [place]. This disclosure is being madepursuant to the Care Everywhere program and may not contain all information available regarding this patient. Last updated 18.[facility] [employer] Allergies Active Allergy Reactions Criticality Noted Date [...] verio strips, Reported on 02/26/2025 Continuous Glucose Sales And Service Consultant (Dexcom G7 Sales And Service Consultant) SONIA as directed Act khari Continuous Glucose [...] times daily 56 tablet 5 01/20/20 25 Active Acetaminophen Extra Strength 500 MG TABS [...] once daily Activ e TRUEplus 5-Bevel Pen Cochran 31G X 6 MM MISC USE TO [...] days 30 packet 06/01/20 25 025 Active Problems Problem Noted [...] - 06/15/2025 11:59 PM CDT Hospital Encounter [facility] [address] [place] [address] Robb Wakefield MD Discharge Disposition: Home or Self Care 06/05/2025 Telephone Transitional Care at [address] [address] Rena Solano RN Missed Appointment 06/02/2025 Telephone Transitional Care at [address] [address] Malu Noyola MA Question 06/01/2025 Telephone Transitional Care at [address] [address] Rena Solano RNoperations management trainee 06/01/2025 Travel 05/28/2025 Travel 05/27/2025 11:33 PM CDT - 05/31/2025 9:25 AM CDT Hospital Encounter [facility] [address] [place] [address] Cristian Garcia MD Kent, Saida A, MD Felgenhauer, Joshua, MD Emergency Medicine Discharge Disposition: Home or Self Care 05/04/2025 Refill [facility] [address] [place] [address] Perri Dexter APRN-CLEANING AND WASHING EQUIPMENT OPERATOR Refill Request from Last 3 Months Family [...] Recorded Patient Health Questionnaire-2 Score 0 11/20/2024 [facility] - Occupational Stress [...] any time in the past 12 m [facility], were you homeless or living in a longterm (including now)? 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 N/A: Spine Lumbar [place] Spine 10/28/2024 [id number] / / [id number] Kit Bone Cmnt Vertaplex Hv Autoplex Wo Implanted:Qty: 1 on 07/22/2024 by Arya Rm MD at [facility] N/A: Spine Lumbar [place] Spine 05/29/2025 [id number] / / [id number] Port Implinfn Powerport Clrvu Argd Nya Implanted:Qty: 1 on 08/20/2024 by Vic Callahan MD at [facility] Right: Chest Wall Bard Peripheral Vascular 08/28/2025 [id number] / / [id number] Mixer Bone Cmnt Kyphon C20gm Ll Fit Implanted:Qty: 1 on 12/02/2024 by Arya Rm MD at [facility] N/A: Spine Lumbar Kyphon Inc [id number] / / Cmnt Bone Hv-R Kphx Mxr Grad Mrk Dspns Implanted:Qty: 1 on 12/02/2024 by Arya Rm MD at [facility] N/A: Spine Lumbar Kyphon Inc [id number] / / Graft Bone Grftn Dbm Plif 10x2.5cm Implanted:Qty: 1 on 12/02/2024 by Arya Rm MD at [facility] N/A: Spine Lumbar Osteotech Inc [id number] / / Ezekiel Spnl 500mm 5.5mm Cd Hzn Str Ti Ln Cp Implanted:Qty: 1 on 12/02/2024 by Arya Rm MD at [facility] N/A: Spine Lumbar Medtronic Inc [id number] / / Graft Bone Grftn Dbm Aspt 5x2.5cm Post Implanted:Qty: 1 on 12/02/2024 by Arya Rm MD at [facility] N/A: Spine Lumbar Medtronic Inc [id number] / / Screw Set Ti Spnl Brk Off Cd Hzn Nonster Implanted:Qty: 8 on 12/02/2024 by Arya Rm MD at [facility] N/A: Spine Lumbar Medtronic Inc [id number] / / Screw 7.5mm 55mm Ma Spne Solera Cd Hzn Implanted:Qty: 2 on 12/02/2024 by Arya Rm MD at [facility] N/A: Spine Lumbar Medtronic Inc [id number] / / Screw 7.5mm 50mm Ma Spne Solera Cd Hzn Implanted:Qty: 6 on 12/02/2024 by Arya Rm MD at [facility] Medtronic Inc [id number] / / Slnt Dura Duraseal Pg Trilysine Amine 5 Implanted:Qty: 1 on 12/02/2024 by Arya Rm MD at [facility] N/A: Spine Lumbar Tindiea [employer] Thang / / Explanted Type Area Drain Technician Device Identifier Shelf Expiration Date Model / Serial / Lot Kit Osteocool Srg 10ga Bone Acc Explanted:Qty: 2 on 07/22/2024 by Arya Rm MD at [facility] N/A: Spine Lumbar Medtronic Inc [id number] / / [id number] Description:Access device, n ot an implant. No other options in system Probe 17ga 20mm Rf Eltx Osteocool 2mm Explanted:Qty: 1 on 07/22/2024 by Arya Rm MD at [facility] N/A: Spine Lumbar Medtronic Inc 03/26/2027 [id number] / / [id number] Description:Access device, n ot an implant. No [...] DATE/TIME OF EXAM: 06/15/2025 10:11 AM, LOCATION [facility] INDICATION: C90.00: Multiple myeloma, remission status unspecified [...] DATE/TIME OF EXAM: 06/15/2025 10:11 AM, LOCATION [facility] INDICATION: C90.00: Multiple myeloma, remission status unspecified [...] 41 - 74 % 05/31/2025 8:08 AM [facility] Lymphocyte % 48(H) 17 - 47 % 05/31/2025 8:08 AM [facility] Monocyte % 7 3 - 11 % 05/31/2025 8:08 AM [facility] Basophil % 2 0 - 2 % 05/31/2025 8:08 AM [facility] Neutrophil Absolute 5.38 1.60 - 7.50 x10E9/L 05/31/2025 8:08 AM [facility] Lymphocyte Absolute 6.00(H) 1.00 - 4.40 x10E9/L 05/31/2025 8:08 AM [facility] Monocyte Absolute 0.88 0.15 - 1.00 x10E9/L 05/31/2025 8:08 AM [facility] Basophil Absolute 0.25(H) 0.00 - 0.13 x10E9/L 05/31/2025 8:08 AM [facility] RBC Morphology REVIEWED 05/31/2025 8:08 AM [facility] Large Platelets PRESENT(A) (none) 05/31/2025 8:08 AM [facility] Blood BLOOD SPECIMEN / Unknown Lab Venipuncture / Unknown 05/31/2025 6:56 AM CDT 05/31/2025 7:31 AM CDT us Cristian Garcia MD LAB - HEMATOLOGY ORDERABLES F inal Result [facility] [address] [place] [address], [facility] [phone] * (ABNORMAL) CBC W AUTO DIFFERENTIAL (05/31/2025 6:56 AM CDT) Only the most recent of4 resultswithin the time period is included. WBC 12.5(H) 4.0 - 10.7 x10E9/L 05/31/2025 8:08 AM [facility] RBC Count 5.46 4.30 - 5.80 x10E12/L 05/31/2025 8:08 AM [facility] Hemoglobin 15.5 13.3 - 17.5 g/dL 05/31/2025 8:08 AM [facility] Hematocrit 46.6 38.7 - 51.1 % 05/31/2025 8:08 AM [facility] MCV 85.3 80.0 - 98.0 fL 05/31/2025 8:08 AM [facility] MCH 28.4 26.7 - 33.6 pg 05/31/2025 8:08 AM [facility] MCHC 33.3 31.7 - 36.3 g/dL 05/31/2025 8:08 AM [facility] RDW-CV 15.1(H) 11.3 - 14.8 % 05/31/2025 8:08 AM [facility] Platelet Count 216 150 - 420 x10E9/L 05/31/2025 8:08 AM [facility] MPV 11.0 7.8 - 11.4 fL 05/31/2025 8:08 AM [facility] Blood BLOOD SPECIMEN / Unknown Lab Venipuncture / Unknown 05/31/2025 6:56 AM CDT 05/31/2025 7:31 AM CDT us Cristian Garcia MD LAB - HEMATOLOGY ORDERABLES F inal Result [facility] [address] [place] [address], [facility] [phone] * (ABNORMAL) RENAL FUNCTION PANEL (05/31/2025 6:56 AM CDT) Only the most recent of3 resultswithin the time period is included. BUN 14 7 - 26 mg/dL 05/31/2025 8:02 AM [facility] Creatinine 0.74 0.71 - 1.16 mg/dL 05/31/2025 8:02 AM [facility] Sodium 138 136 - 145 mmol/L 05/31/2025 8:02 AM [facility] Potassium 3.8 3.5 - 4.5 mmol/L 05/31/2025 8:02 AM [facility] Chloride 108(H) 98 - 107 mmol/L 05/31/2025 8:02 AM [facility] CO2 26 22 - 29 mmol/L 05/31/2025 8:02 AM [facility] Glucose 120(H) 70 - 99 mg/dL 05/31/2025 8:02 AM [facility] Albumin 4.0 3.4 - 5.0 g/dL 05/31/2025 8:02 AM [facility] Calcium 8.7 8.4 - 10.2 mg/dL 05/31/2025 8:02 AM [facility] Phosphorus 3.5 2.8 - 5.1 mg/dL 05/31/2025 8:02 AM [facility] Anion Gap 4(L) 6 - 16 05/31/2025 8:02 AM [facility] BUN/Creatinine Ratio 19 7 - 23 05/31/2025 8:02 AM [facility] Osmolality Calculated 288 275 - 295 mOsm/kg 05/31/2025 8:02 AM [facility] eGFR by CKD-EPI >90 >=90 mL/min/1.7 3 m2 05/31/2025 8:02 AM [facility] Comment:Estimated Glomerular Filtration Rate (eGFR) calculated using the CKD-EPI Creatinine Equation (2020), per the National Kidney Foundation and [place] Society of Nephrology recommendations. Blood BLOOD SPECIMEN / Unknown Lab Venipuncture / Unknown 05/31/2025 6:56 AM CDT 05/31/2025 7:31 AM CDT Cristian Garcia MD LAB - CHEMISTRY ORDERABLES Fi nal Result Performing Organization Address City/[facility]/ZIP Co de Phone Number [facility] [address] [place] [address], [place] [phone] * MAGNESIUM BLOOD (05/31/2025 6:56 AM CDT) Only the most recent of3 resultswithin the time period is included. Magnesium 1.9 1.6 - 2.6 mg/dL 05/31/2025 8:02 AM CDT [facility] Blood BLOOD SPECIMEN / Unknown Lab Venipuncture / Unknown 05/31/2025 6:56 AM CDT 05/31/2025 7:31 AM CDT Cristian Garcia MD LAB - CHEMISTRY ORDERABLES Fi nal Result Performing Organization Address City/[facility]/ZIP Co de Phone Number [facility] [address] [place] [address], [place] [phone] * GLUCOSE - POINT OF CARE (05/31/2025 6:14 AM CDT) Only the most recent of10 resultswithin the time period is included. Glucose WB/POC 98 70 - 99 mg/dL 05/31/2025 6:18 AM CDT [facility] Specimen Type Arterial/C apillary 05/31/2025 6:18 AM CDT [facility] Blood BLOOD SPECIMEN / Unknown 05/31/2025 6:14 AM CDT 05/31/2025 6:18 AM CDT Robb Wakefield MD LAB - POINT OF CARE ORDERA BLES Final Result [facility] [address] [facility] [place] [address], [place] [phone] * HEPATITIS C RNA QUANTITATIVE (05/29/2025 7:04 AM CDT) [facility] Hepatitis C RNA PCR, Interp Not detected Not detected 06/01/2025 10:14 AM CDT [facility] Hepatitis C Quant by PCR, Log NA log IU/mL 06/01/2025 10:14 AM CDT [facility] Blood BLOOD SPECIMEN / Unknown Lab Venipuncture / Unknown 05/29/2025 7:04 AM CDT 05/29/2025 8:58 AM CDT Narrative [facility] - 06/01/2025 10:14 AM CDT The Hepatitis C viral (HCV) RNA analysis utilized a serum sample, real-time reverse flame cutting machine operator helper PCR, and is reported as Not Detected, [...] the isolation of HCV RNA with reverse flame cutting machine operator helper of genomic HCV RNA followed by real-time PCR in the presence of an unrelated RNA internal control. The internal control ensures that RNA is isolated, and that no general significant inhibitors of the RT-PCR process are present. The analysis was performed using a U.S. FDA approved test methodology Nahum gomez HCV. Robb Wakefield MD LAB - CHEMISTRY ORDERABLES Final Result [facility] [address] [place] [address], [facility] [phone] * (ABNORMAL) HEMOGLOBIN A1C (05/29/2025 7:04 AM CDT) Hemoglobin A1c 6.1(H) <=5.6 % 05/29/2025 11:58 AM CDT [facility] Estimated Average Glucose 128 mg/dL 05/29/2025 11:58 AM CDT [facility] Comment: HbA1c Interpretation: Normal : < 5.7% Pre-diabetes: 5.7-6.4% Diabetes: Equal to or greater than 6.5% Test results diagnostic of diabetes should be repeated for confirmation. Treatment target values recommended by ADA and other clinical organizations should be used to evaluate metabolic control in patients. Reference: [place] Diabetes Association, Standards of Care in Diabetes -2020 In patients 70 years and older consider HbA1c target range of 7.0-7.5% (Reference: Jona Epstein, et al. JAMDA. 2012) The Sebia assay for the measurement of HbA1c is a National Glycohemoglobin Standardization Program (NGSP) certified method. Blood BLOOD SPECIMEN / Unknown Lab Venipuncture / Unknown 05/29/2025 7:04 AM CDT 05/29/2025 8:00 AM CDT us Cristian Garcia MD LAB - CHEMISTRY ORDERABLES Fi nal Result [address] [address], [facility] [phone] * (ABNORMAL) C-REACTIVE PROTEIN (05/28/2025 1:59 PM CDT) C-Reactive Protein 0.6(H) <=0.5 mg/dL 05/28/2025 2:38 PM CDT [facility] Blood BLOOD SPECIMEN / Unknown Venipuncture / Unknown 05/28/2025 1:59 PM CDT 05/28/2025 2:10 PM CDT us Robb Wakefield MD LAB - CHEMISTRY ORDERABLES Final Result [address] [address], [place] [phone] * ERYTHROCYTE SEDIMENTATION RATE (05/28/2025 1:59 PM CDT) Erythrocyte Sedimentation Rate Yoni 8 0 - 15 MM/HR 05/28/2025 2:32 PM CDT [facility] Blood BLOOD SPECIMEN / Unknown Venipuncture / Unknown 05/28/2025 1:59 PM CDT 05/28/2025 2:10 PM CDT us Robb Wakefield MD LAB - HEMATOLOGY ORDERABLE S Final Result [facility] [address] [place] [address], [facility] [phone] * CT Lumbar Spine Wo Contrast (05/28/2025 [...] correlation for possible infection. > Dictated by Study Specialist I, Natan Modi MD have personally reviewed and interpreted this examination/study. > Interpreting Provider: Natan Modi MD on 05/28/2025 10:09 AM Narrative 05/28/2025 10:09 AM CDT PROCEDURE: CT THORACIC SPINE WO CONTRAST, CT LUMBAR SPINE WO CONTRAST, DATE/TIME OF EXAM: 05/28/2025 3:39 AM, LOCATION [facility] INDICATION: M54.6: Acute midline thoracic back pain [...] DATE/TIME OF EXAM: 05/28/2025 3:39 AM, LOCATION [facility] INDICATION: M54.6: Acute midline thoracic back pain [...] L3 on L4. Redemonstration of a chronic H9zkahbvqhd body fracture status post kyphoplasty. An irregular lytic lesion and the sclerotic changes with cortical enlargement are noted in the V5tggevbdnt body. No acute fracture identified. Mild to [...] correlation for possible infection. > Dictated by Study Specialist I, Natan Modi MD have personally reviewed [...] correlation for possible infection. > Dictated by Study Specialist I, Natan Modi MD have personally reviewed and interpreted this examination/study. > Interpreting Provider: Natan Modi MD on 05/28/2025 10:09 AM Narrative 05/28/2025 10:09 AM CDT PROCEDURE: CT THORACIC SPINE WO CONTRAST, CT LUMBAR SPINE WO CONTRAST, DATE/TIME OF EXAM: 05/28/2025 3:39 AM, LOCATION [facility] INDICATION: M54.6: Acute midline thoracic back pain [...] DATE/TIME OF EXAM: 05/28/2025 3:39 AM, LOCATION [facility] INDICATION: M54.6: Acute midline thoracic back pain [...] L3 on L4. Redemonstration of a chronic N5xufwjklia body fracture status post kyphoplasty. An irregular lytic lesion and the sclerotic changes with cortical enlargement are noted in the Y1qkrodmsve body. No acute fracture identified. Mild to [...] correlation for possible infection. > Dictated by Study Specialist I, Natan Modi MD have personally reviewed and interpreted this examination/study. > Interpreting Provider: Natan Modi MD on 05/28/2025 10:09 AM Cristian Garcia MD CT ORDERABLES Final Result * TYPE + SCREEN PANEL (05/28/2025 1:26 AM CDT) Antibody Screen NEG 2:26 AM CDT [facility] ABO Rh O POS 05/28/2025 2:26 AM CDT [facility] Blood Bank BLOOD SPECIMEN / Unknown Venipuncture / Unknown 05/28/2025 1:26 AM CDT 05/28/2025 1:46 AM CDT Cristian Garcia MD LAB - BLOOD BANK ORDERABLES F inal Result [facility] [address] [place] [address] [phone] * (ABNORMAL) COMPREHENSIVE METABOLIC PANEL (05/28/2025 1:26 AM [facility]) BUN 14 7 - 26 mg/dL 05/28/2025 2:10 AM [facility] Creatinine 0.86 0.71 - 1.16 mg/dL 05/28/2025 2:10 AM [facility] Sodium 140 136 - 145 mmol/L 05/28/2025 2:10 AM [facility] Potassium 3.9 3.5 - 4.5 mmol/L 05/28/2025 2:10 AM [facility] Chloride 110(H) 98 - 107 mmol/L 05/28/2025 2:10 AM [facility] CO2 24 22 - 29 mmol/L 05/28/2025 2:10 AM [facility] Glucose 107(H) 70 - 99 mg/dL 05/28/2025 2:10 AM [facility] Calcium 8.9 8.4 - 10.2 mg/dL 05/28/2025 2:10 AM [facility] Protein Total 6.3 6.0 - 8.3 g/dL 05/28/2025 2:10 AM [facility] Albumin 4.3 3.4 - 5.0 g/dL 05/28/2025 2:10 AM [facility] Bilirubin Total 0.3 0.2 - 1.2 mg/dL 05/28/2025 2:10 AM [facility] Alkaline Phosphatase 129 40 - 150 U/L 05/28/2025 2:10 AM [facility] ALT 23 5 - 55 U/L 05/28/2025 2:10 AM [facility] AST 25 5 - 34 U/L 05/28/2025 2:10 AM [facility] Anion Gap 6 6 - 16 05/28/2025 2:10 AM [facility] BUN/Creatinine Ratio 16 7 - 23 05/28/2025 2:10 AM [facility] Osmolality Calculated 291 275 - 295 mOsm/kg 05/28/2025 2:10 AM [facility] Albumin/Globulin Ratio 2.2 1.1 - 2.3 05/28/2025 2:10 AM CDT [facility] eGFR by CKD-EPI >90 >=90 mL/min/1.7 3 m2 05/28/2025 2:10 AM T [facility] Comment:Estimated Glomerular Filtration Rate (eGFR) calculated using the CKD-EPI Creatinine Equation (2020), per the National Kidney Foundation and [place] Society of Nephrology recommendations. Blood BLOOD SPECIMEN / Unknown Venipuncture / Unknown 05/28/2025 1:26 AM CDT 05/28/2025 1:39 AM CDT us Cristian Garcia MD LAB - CHEMISTRY ORDERABLES Fi nal Result [facility] [address] [place] [address], [place] [phone] * MICROALB/CREAT RATIO URINE RANDOM PANEL (06/28/2024 6:31 AM CDT) Albumin Random Urine <5.0 Not Established ug/mL 06/28/2024 9:49 PM T [facility] Creatinine Urine 82.62 Not Established mg/dL 06/28/2024 9:49 PM T [facility] Urine Albumin/Creati nine Ratio <6 <30 mg/g 06/28/2024 9:49 PM T [facility] Albumin/Creati nine Ratio Urine See Comment <30 mg/g 06/28/2024 9:49 PM T [facility] Comment:Unable to calculate the Urine Albumin/Creatinine Ratio due to one or more analyte concentration(s) being outside the measuring limits of the instrument. Urine URINE SPECIMEN OBTAINED BY CLEAN CATCH PROCEDURE / Unknown Collection / Unknown 06/28/2024 6:31 AM CDT 06/28/2024 7:54 PM CDT us Robb Gomez MD LAB - URINE CHEMISTRY ORDERA BLES Final Result Performing Organization Address City/[facility]/ZIP Co de Phone Number [facility] [address] [place] [address], [place] [phone] * HIV-1 HIV-2 ANTIBODY + HIV P24 AG PANEL (06/06/2024 11:59 AM CDT) HIV Antigen/Antibod y 1 & 2 Non-reacti ve Non-react khari 06/06/2024 12:58 PM CDT [facility] Comment:No Laboratory eviden ce of HIV infection. Blood BLOOD SPECIMEN / Unknown Lab Venipuncture / Unknown 06/06/2024 11:59 AM CDT 06/06/2024 12:07 PM CDT Gina Burt MD LAB - CHEMISTRY ORDERABLES Final Result [facility] [address] [place] [address], [facility] [phone] from Last 3 Months or Most Recently Relevant to Health Maintenance Additional Health Concerns Infection Onset Date Last Indicated 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 Insurance MEDICAID [employer] [place] Advance Directives Documents on File Type Date Recorded Patient Physician Scientist Expl anation Adv Directive/Living Will/POA 08/13/2024 1:30 [...] 10:06 PM 10/01/2024 2:14 PM Care Teams Photoengraver Apprentice Relationship Specialty Start Date End Date Matthew Sorenson PA [address] [place] [address] PCP - General 02/02/22
--- OUTSIDE RECORDS SUMMARY | 2025-07-21 08:44 | XMS_ITS | Clinical Summary ---
Author Organization [facility] Address [facility] [place] [address] Care Team Providers Care Manager Wound Name Role Phone Matthew Sorenson Primary Care Provider [phone] Allergies Active Allergy Reactions Criticality Noted Date Comments Morphine Itching 12/17/2024 Vancomycin Redness 12/17/2024 Medications Continuous Glucose Champagne Maker (DEXCOM G7 RENOVATOR MACHINE OPERATOR) Device see administration instructions. Active acyclovir (ZOVIRAX) 400 MG tablet Take 1 tablet (400 mg total) by mouth 2 (two) times daily. 08/29/20 24 Active empagliflozin (JARDIANCE) 25 MG tablet Take 1 tablet (25 mg total) by mouth daily. 08/29/20 24 Active cyclobenzaprine (FLEXERIL) 10 MG tablet Take 1 tablet (10 mg total) by mouth 3 (three) times daily as needed. 12/10/19 25 Active Continuous Glucose Sensor (DEXCOM G7 SENSOR) [facility] 12/15/19 25 Active dexamethasone (DECADRON) 4 MG tablet 1 tablet (4 mg total). TAKE 5 TABLETS BY MOUTH DIRECTED ON DAYS 1,8 AND 15 ON EACH 21 DAY CYCLE Active Docusate Sodium (DSS) 100 MG Cap Take 100 mg by mouth 2 (two) times daily. 01/02/20 25 Active doxycycline hyclate (VIBRAMYCIN) 100 MG capsule Take 1 capsule (100 mg total) by mouth 2 (two) times daily. Active famotidine (PEPCID) 40 MG tablet Take 1 tablet (40 mg total) by mouth daily. 12/10/19 25 Active gabapentin (NEURONTIN) 300 MG capsule Take 1 capsule (300 mg total) by mouth 2 (two) times a day. 01/14/20 25 Active hydrOXYzine (ATARAX) 25 MG tablet Take 1 tablet (25 mg total) by mouth every 6 (six) hours as needed. 10/14/20 24 Active lenalidomide (REVLIMID) 10 MG capsule Take 1 capsule by mouth daily. 02/28/20 25 Active losartan (COZAAR) 100 MG tablet Take 1 tablet (100 mg total) by mouth daily. 09/08/20 24 Active mirtazapine (REMERON) 15 MG tablet Take 1 tablet (15 mg total) by mouth nightly at bedtime. 01/16/20 25 Active montelukast (SINGULAIR) 10 MG tablet Take 1 tablet (10 mg total) by mouth as needed. 1 hour prior to treatments Active ondansetron (ZOFRAN-ODT) 8 MG disintegrating tablet Take 1 tablet (8 mg total) by mouth every 8 (eight) hours as needed. Active oxyCODONE ER (OXYCONTIN) 20 MG 12 hr abuse-deterrent tablet Take 1 tablet (20 mg total) by mouth every 12 (twelve) hours. 01/15/20 25 Active prochlorperazine (COMPAZINE) 10 MG tablet Take 1 tablet (10 mg total) by mouth every 6 (six) hours as needed. 01/14/20 25 Active sertraline (ZOLOFT) 50 MG tablet Take 1 tablet (50 mg total) by mouth daily. 11/05/19 25 Active SUMAtriptan (IMITREX) 50 MG tablet Take 1 tablet (50 mg total) by mouth 2 (two) times daily as needed. Active Encounters Date Type Department Care Team Description 07/17/2025 8:35 AM CDT - 07/17/2025 11:05 AM CDT [facility] [address] [place] [address] Jyothi Park, DO Flu Like Symptoms Discharge Disposition: Home or Self Care (Routine Discharge) 07/17/2025 Travel from Last 3 Months Social History Tobacco Use Types Packs/Day Years Used Date Smoking Tobacco: Every Day Cigarettes Smokeless Tobacco: Never Tobacco Cessation:Ready to Q uit: Not Asked; Counseling Given: Not Answered Alcohol Use Standard Drinks/Week Comments Not Currently 0 (1 standard drink = 0.6 oz pur e alcohol) Sex and Gender Information Value Date Recorded Sex Assigned at Male 12/17/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 Sex Male 9:50 PM LEAD WORKER OF HOU[employer]KEEP[employer] Gender Identity Not on file Sexual Orientation Not on file Last Filed Vital Signs Vital Sign Reading Time Taken Comments Blood Pressure 143/94 07/17/2025 10:30 AM CDT Pulse 78 07/17/2025 8:40 AM CDT Temperature 35.7 C (96.2 F) 07/17/2025 8:40 AM CDT Respiratory Rate 18 07/17/2025 8:40 AM CDT Oxygen Saturation 95% 07/17/2025 9:45 AM CDT Inhaled Oxygen Concentration - - Weight 113.4 kg (250 lb) 07/17/2025 8:40 AM CDT Height 182.9 cm (6') 07/17/2025 8:40 AM CDT Body Mass Index 33.91 07/17/2025 8:40 AM CDT Plan of Treatment Health Maintenance Due Date Last Done Comments Colorectal Cancer Screening Colonoscopy (10 Years) 1978 Annual Physical 1981 COVID-19 Vaccine (#1) 1983 DTaP, Tdap and Td Vaccines ( 1 - Tdap) 1997 Hepatitis B Vaccines (1 of 3 - 19+ 3-dose series) 1997 Pneumococcal Vaccine: Pediatrics (0 to 5 Years) and At-Risk Patients (6 to 49 Years) (1 of 2 - PCV) 1997 Hepatitis C Completed 05/29/2025, 06/04/2024 Meningococcal B Vaccine Aged Out No l onger eligible based on patient's age to complete this topic Meningococcal Vaccine Aged Out No jose etienne eligible based on patient's age to complete this topic RSV Immunizations Under 20 Months Aged Out No longer eligible b ased on patient's age to complete this topic Procedures Procedure Name Priority Date/Time Associated Diagnosis Comments XR CHEST PA+LAT STAT 07/17/2025 10:01 AM CDT D-DIMER, QUANTITATIVE STAT 07/17/2025 9:25 AM CDT LACTIC ACID W REFLEX (SEPSIS) STAT 07/17/2025 9:25 AM CDT COMPREHENSIVE METABOLIC PANEL STAT 07/17/2025 9:25 AM CDT CBC W/DIFF AUTOMATED STAT 07/17/2025 9:25 AM CDT HC URINALYSIS AUTO W/MICRO STAT 07/17/2025 9:13 AM CDT RESP SYNCYTIAL VIRUS STAT 07/17/2025 9:10 AM CDT INFLUENZA A & B STAT 07/17/2025 9:10 AM CDT CORONAVIRUS (COVID-19) ANTIGEN STAT 07/17/2025 9:10 AM CDT from Last 3 Months Results * XR CHEST PA+LAT (07/17/2025 10:01 AM CDT) Anatomical Region Laterality Modality Chest Radiographic Lily ging 07/17/2025 10:0 4 AM CDT Impressions 07/17/2025 10:05 AM CDT IMPRESSION: No acute cardiopulmonary process identified. Ordered By: JYOTHI PARK Interpreted By: Ravi Isaac MD, 07/17/2025 10:04 AM Narrative 07/17/2025 10:05 AM CDT [address] [place] [address] Examination: Two-view chest Exam time: 0936 hours. Clinical history: Dyspnea. Comparison: None. Technique: PA and lateral views Findings: The heart is within normal limits for size. Pulmonary vascularity is within normal limits. There is minor linear scarring or subsegmental atelectasis in the middle lobe. No acute infiltrates or effusions are identified. The bony thorax is unremarkable for age and stature. Procedure Note Ravi Isaac MD - 07/17/[address] [place] [address] Examination: Two-view chest Exam time: 0936 hours. Clinical history: Dyspnea. Comparison: None. Technique: PA and lateral views Findings: The heart is within normal limits for size. Pulmonaryvascularity is within normal limits. There is minor linear scarring orsubsegmental atelectasis in the middle lobe. No acute infiltrates oreffusions are identified. The bony thorax is unremarkable for age andstature. IMPRESSION: No acute cardiopulmonary process identified. Ordered By: JYOTHI PARK Interpreted By: Ravi Isaac MD, 07/17/2025 10:04 AM us Jyothi Park DO GENERAL IMAGING Final Result * LACTIC ACID W REFLEX (SEPSIS) (07/17/2025 9:25 AM CDT) LACTIC ACID VENOUS 1.7 0.4 - 2.0 MMOL/L 07/17/2025 10:06 AM CDT [facility] 07/17/2025 9:25 AM CDT us Jyothi Park DO LABORATORY Final Result [facility] [address] [place] [address], * (ABNORMAL) COMPREHENSIVE METABOLIC PANEL (07/17/2025 9:25 AM CDT) SODIUM S/P/B 136 136 - 145 MMOL/L 07/17/2025 10:03 AM CDT [facility] POTASSIUM S/P/B 5.1 3.5 - 5.1 MMOL/L 07/17/2025 10:03 AM CDT [facility] Comment:SLIGHT HEMOLYSIS, RE SULT MAY BE AFFECTED. CHLORIDE S/P/B 103 98 - 107 MMOL/L 07/17/2025 10:03 AM CDT [facility] CO2 26.1 21.0 - 32.0 MMOL/L 07/17/2025 10:03 AM CDT [facility] GLUCOSE 132(H) 70 - 99 MG/DL 07/17/2025 10:03 AM [facility] Comment: FASTING GLUCOSE 100 TO 125 MG/DL IS CONSISTENT WITH IMPAIRED FASTING GLUCOSE. FASTING GLUCOSE >125 MG/DL IS CONSISTENT WITH DIABETES. RANDOM GLUCOSE >200 MG/DL WITH HYPERGLYCEMIC SYMPTOMS IS CONSISTENT WITH DIABETES. PER ADA GUIDELINES BUN 15 6 - 24 MG/DL 07/17/2025 10:03 AM [facility] CREATININE S/P/B 0.75 0.70 - 1.30 MG/DL 07/17/2025 10:03 AM [facility] CALCIUM S/P/B 8.9 8.4 - 10.5 MG/DL 07/17/2025 10:03 AM [facility] BILIRUBIN TOTAL S/P/B 0.3 0.2 - 1.0 MG/DL 07/17/2025 10:03 AM [facility] Comment: THIS ASSAY IS NOT RECOMMENDED FOR PATIENTS UNDERGOING TREATMENT WITH ELTROMBOPAG DUE TO THE POTENTIAL FOR FALSELY ELEVATED RESULTS. ALKALINE PHOSPHATASE S/P/B 118(H) 45 - 115 U/L 07/17/2025 10:03 AM [facility] AST 27 15 - 37 U/L 07/17/2025 10:03 AM [facility] Comment:SLIGHT HEMOLYSIS, RE SULT MAY BE AFFECTED. ALT 43 16 - 63 U/L 07/17/2025 10:03 AM [facility] TOTAL PROTEIN S/P/B 6.5 6.4 - 8.2 G/DL 07/17/2025 10:03 AM [facility] ALBUMIN S/P/B 3.3(L) 3.4 - 5.0 G/DL 07/17/2025 10:03 AM [facility] ANION GAP 6.9 5.0 - 15.0 MMOL/L 07/17/2025 10:03 AM [facility] OSMOLALITY (CALC) 285 MOSM/KG 025 10:03 AM [facility] Comment:REFERENCE RANGE NOT ESTABLISHED GFR ESTIMATE >90 >89 ML/MIN/1. 73 M2 07/17/2025 10:03 AM CDT [facility] GFR NOTES GFR REFERENCE S: 07/17/2025 10:03 AM CDT [facility] Comment: THE ESTIMATED GFR IS CALCULATED USING THE 2020 CKD-EPI EQUATION. THE FOLLOWING CATEGORIES FOR GRADING RENAL FUNCTION ARE RECOMMENDED BY THE INTERNATIONAL SOCIETY OF NEPHROLOGY (KDIGO 2012 CLINICAL PRACTICE GUIDELINE). G1,NORMAL OR HIGH: >89 ml/min/1.73 m2 G2,MILDLY DECREASED: 60-89 ml/min/1.73 m2 G3A,MILDLY TO MODERATELY DECREASED: 45-59 ml/min/1.73 m2 G3B,MODERATELY TO SEVERELY DECREASED: 30-44 ml/min/1.73 m2 G4,SEVERELY DECREASED: 15-29 ml/min/1.73 m2 G5,KIDNEY FAILURE: <15 ml/min/1.73 m2 07/17/2025 9:25 AM CDT us Jyothi Park DO LABORATORY Final Result Performing Organization Address [facility] de Phone Number [facility] [address] [place], [place] [email or web address] [place] [id number], [place] [phone] * D-DIMER, QUANTITATIVE (07/17/2025 9:25 AM CDT) D-DIMER <215 0 - 500 ng{FEU}/mL 07/17/2025 10:09 AM CDT [facility] Comment: D-Dimer values less than or equal to 500 ng/mL FEU have a negative predictive value of >95% for exclusion of deep vein thrombosis and pulmonary embolism. In patients over 50 (who tend to have higher normal baseline D-Dimer values), recent studies suggest age-adjusted D-Dimer cutoff values (calculated as: age [years] x 10 ng/mL) result in equivalent outcomes and no additional false negative findings. 07/17/2025 9:25 AM CDT us Jyothi Park DO LABORATORY Final Result Performing Organization Address [facility] de Phone Number [facility] [address] [place], [place] [email or web address] [place] [id number], * (ABNORMAL) CBC W/DIFF AUTOMATED (07/17/2025 9:25 AM CDT) WBC 6.09 4.00 - 10.80 x10'3/uL 07/17/2025 9:45 AM CDT [facility] RBC 5.57 4.50 - 6.10 x10'6/uL 07/17/2025 9:45 AM CDT [facility] HGB 16.3 13.0 - 18.0 G/DL 07/17/2025 9:45 AM CDT [facility] HCT 47.7 37.0 - 52.0 % 07/17/2025 9:45 AM CDT [facility] MCV 85.6 78.0 - 100.0 FL 07/17/2025 9:45 AM CDT [facility] MCH 29.3 27.0 - 31.0 PG 07/17/2025 9:45 AM CDT [facility] MCHC 34.2 33.0 - 36.0 G/DL 07/17/2025 9:45 AM CDT [facility] RDW 14.1 11.5 - 14.5 % 07/17/2025 9:45 AM CDT [facility] PLT 181 150 - 350 x10'3/uL 07/17/2025 9:45 AM CDT [facility] MPV 10.8(H) 7.4 - 10.4 FL 07/17/2025 9:45 AM CDT [facility] CBC COMMENT NORMAL REFERENCE RANGE NOT ESTABLISHED FOR THE PROPORTIONAL LEUKOCYTE DIFFERENTIAL. 07/17/2025 9:45 AM CDT [facility] NEUTROPHILS % 44.4 % 07/17/2025 9:45 AM CDT [facility] LYMPHOCYTES % 37.6 % 07/17/2025 9:45 AM CDT [facility] MONOCYTES % 15.1 % 07/17/2025 9:45 AM CDT [facility] EOSINOPHILS % 1.5 % 07/17/2025 9:45 AM CDT [facility] BASOPHILS % 1.1 % 07/17/2025 9:45 AM CDT [facility] IMMATURE GRANS % 0.3 % 07/17/20 9:45 AM CDT [facility] NRBC % 0.0 % 07/17/2025 9:45 AM CDT [facility] ABS. NEUTROPHILS 2.70 1.60 - 8.30 x10'3/uL 07/17/2025 9:45 AM CDT [facility] ABS. LYMPHOCYTES 2.29 0.80 - 4.70 x10'3/uL 07/17/2025 9:45 AM CDT [facility] ABS. MONOCYTES 0.92 0.00 - 1.50 x10'3/uL 07/17/2025 9:45 AM CDT [facility] ABS. EOSINOPHILS 0.09 0.00 - 0.40 x10'3/uL 07/17/2025 9:45 AM CDT [facility] ABS. BASOPHILS 0.07 0.00 - 0.20 x10'3/uL 07/17/2025 9:45 AM CDT [facility] ABS. IMMATURE GRANULOCYTES 0.02 0.00 - 0.03 x10'3/uL 07/17/2025 9:45 AM CDT [facility] ABS. NUCLEATED RBC'S 0.00 0.00 - 0.01 x10'3/uL 07/17/2025 9:45 AM CDT [facility] 07/17/2025 9:25 AM CDT us Jyothi Park DO LABORATORY Final Result [facility] [address] [place] [address], * (ABNORMAL) URINALYSIS (07/17/2025 9:13 AM CDT) COLOR (U) YELLOW 07/17/2025 9:33 AM CDT [facility] TRANSPARENCY CLEAR 07/17/2025 9:33 AM CDT [facility] SPECIFIC GRAVITY (U) 1.010 1.000 - 1.025 07/17/2025 9:33 AM CDT [facility] U PH 5.5 5.0 - 8.0 07/17/2025 9:33 AM CDT [facility] LEUKOCYTES (U) NEGATIVE NEGATIVE 07/17/2025 9:33 AM CDT [facility] NITRITES NEGATIVE NEGATIVE 07/17/2025 9:33 AM CDT [facility] PROTEIN RANDOM (U) NEGATIVE NEGATIVE 07/17/2025 9:33 AM CDT [facility] GLUCOSE (U) 2+(A) NEGATIVE 07/17/2025 9:33 AM CDT [facility] KETONES MG/DL (U) NEGATIVE NEGATIVE 07/17/2025 9:33 AM CDT [facility] UROBILINOGEN 0.2 <1.0 EU/DL 07/17/2025 9:33 AM CDT [facility] BILIRUBIN (U) NEGATIVE NEGATIVE 07/17/2025 9:33 AM CDT [facility] BLOOD (U) NEGATIVE NEGATIVE 07/17/2025 9:33 AM CDT [facility] WBC/HPF 0-5 0 - 5 /HPF 07/17/2025 9:33 AM CDT [facility] RBC/HPF 0-5 0 - 5 /HPF 07/17/2025 9:33 AM CDT [facility] EPI/LPF RARE /LPF 07/17/2025 9:33 AM CDT [facility] BACTERIA (U) TRACE /HPF 07/17/2025 9:33 AM CDT [facility] URINE SPECIMEN OBTAINED BY CLEAN CATCH PROCEDURE / Unknown 07/17/2025 9:13 AM CDT us Jyothi Park DO URINE ORDERABLES Final Result [facility] [address] [place] [address], * CORONAVIRUS (COVID-19) ANTIGEN (07/17/2025 9:10 AM CDT) CORONAVIRUS ANTIGEN IA NEGATIVE NEGATIVE 07/17/2025 9:39 AM CDT [facility] Comment: NEGATIVE RESULTS DO NOT RULE OUT SARS-COV-2 INFECTION AND SHOULD NOT BE USED THE SOLE BASIS FOR TREATMENT OR PATIENT MANAGEMENT DECISIONS, INCLUDING INFECTION CONTROL DECISIONS. NEGATIVE RESULTS SHOULD BE CONSIDERED IN THE CONTEXT OF A PATIENT'S RECENT EXPOSURES, HISTORY AND THE PRESENCE OF CLINICAL SIGNS AND SYMPTOMS CONSISTENT WITH COVID 19. THIS TEST HAS BEEN AUTHORIZED BY THE FDA UNDER AN EMERGENCY USE AUTHORIZATION (EUA) FOR USE BY AUTHORIZED LABORATORIES. SPECIMEN TYPE NASAL 07/17/2025 9:10 AM CDT [facility] NASAL NASAL STRUCTURE / Unknown 07/17/2025 9:10 AM CDT us Jyothi Park DO MICROBIOLOGY - GENERAL ORDERABLE S Final Result Performing Organization Address [facility] Co de Phone Number [facility] [address] [place] [address], * INFLUENZA A & B (07/17/2025 9:10 AM CDT) Pathologist [facility] SPECIMEN TYPE (INFLUENZA) NASAL 07/17/2025 9:10 AM CDT [facility] INFLUENZA A NEGATIVE NEGATIVE 07/17/2025 9:39 AM CDT [facility] INFLUENZA B NEGATIVE NEGATIVE 07/17/2025 9:39 AM CDT [facility] Comment: A NEGATIVE RESULT DOES NOT EXCLUDE INFLUENZA VIRUS INFECTION. IF INFLUENZA IS CIRCULATING IN YOUR COMMUNITY, A DIAGNOSIS OF INFLUENZA SHOULD BE CONSIDERED BASED ON A PATIENT'S CLINICAL PRESENTATION AND EMPIRIC ANTIVIRAL TREATMENT SHOULD BE CONSIDERED IF INDICATED. NASAL STRUCTURE / Unknown 07/17/2025 9:10 AM CDT us Jyothi Park DO MICROBIOLOGY - GENERAL ORDERABLE S Final Result Performing Organization Address City/[facility]/ZIP Co de Phone Number [facility] [address] [place] [address], [place] [phone] * RESP SYNCYTIAL VIRUS (07/17/2025 9:10 AM CDT) SPECIMEN TYPE NASOPHARYNGEAL SWAB 07/17/2025 9:10 AM CDT [facility] RSV NEGATIVE NEGATIVE 07/17/2025 9:39 AM CDT [facility] NASOPHARYNGEAL SWAB / Unknown 07/17/2025 9:10 AM CDT us Jyothi Park DO MICROBIOLOGY - GENERAL ORDERABLE S Final Result [facility] [address] [place] [address], [place] [phone] from Last 3 Months Insurance [facility] Care Teams Manager Wound Relationship Specialty Start Date End Date Matthew Sorenson PA PCP - General PHYSICIAN PROJECTION TECHNICIAN 12/17/24
--- OUTSIDE RECORDS SUMMARY | 2025-07-21 08:44 | XMS_ITS | Clinical Summary ---
Author Organization [facility] Address [address] [address] Phone Care Team Providers Care Fruit And Vegetable Factory Worker Name Role Phone Imanquentin Matthew Bebe RAWLS Primary Care Provider [phone] Allergies Active Allergy Reactions Criticality Noted Date Comments Morphine Itching 06/01/2025 Medications acetaminophen (TYLENOL) 500 MG Tablet Take 500 mg by mouth every 4 hours as needed. Discontin ued(Patie nt Discharge ) acyclovir (ZOVIRAX) 400 MG Tablet Take 400 mg by mouth 2 times daily. Discontin ued(Patie nt Discharge ) amLODIPine (NORVASC) 10 MG Tablet Take 10 mg by mouth daily. Discontin ued(Patie nt Discharge ) verapamil (CALAN,ISOPTIN) 120 MG Tablet Take 120 mg by mouth 2 times daily. Discontin ued(Patie nt Discharge ) traMADol (ULTRAM) 50 MG Tablet Take 50 mg by mouth every 6 hours as needed. Discontin ued(Patie nt Discharge ) SUMAtriptan (IMITREX) 50 MG Tablet Take 50 mg by mouth once as needed. Use as directed. May repeat dose in 2 hours if headache recurs. Discontin ued(Patie nt Discharge ) sertraline (ZOLOFT) 50 MG Tablet Take 50 mg by mouth daily. Discontin ued(Patie nt Discharge ) senna (SENOKOT) 8.6 MG Tablet Take 1 Tablet by mouth 2 times daily as needed. X 10 DAYS Discontin ued(Patie nt Discharge ) prochlorperazin e (COMPAZINE) 10 MG Tablet Take 10 mg by mouth every 6 hours as needed. Discontin ued(Patie nt Discharge ) oxyCODONE-aceta minophen (PERCOCET) 5-325 MG Tablet Take 1 Tablet by mouth every 6 hours as needed. Discontin ued(Patie nt Discharge ) oxyCODONE HCl ER (OxyCONTIN) 20 MG Tablet Extended Release 12 hour Abuse-Deterrent Take 20 mg by mouth every 12 hours. Discontin ued(Patie nt Discharge ) ondansetron (ZOFRAN-ODT) 8 MG TABLET DISPERSIBLE Take 8 mg by mouth every 8 hours as needed. Discontin ued(Patie nt Discharge ) Nutritional Supplements (ENSURE ACTIVE HIGH PROTEIN PO) Take 2 Cans by mouth 2 times daily. Discontin ued(Patie nt Discharge ) montelukast (SINGULAIR) 10 MG Tablet Take 10 mg by mouth daily. I HOUR PRIOR TO TREATMENT Discontin ued(Patie nt Discharge ) mirtazapine (REMERON) 15 MG Tablet Take 15 mg by mouth nightly. Discontin ued(Patie nt Discharge ) methocarbamol (ROBAXIN) 500 MG Tablet Take 750 mg by mouth 3 times daily as needed. Discontin ued(Patie nt Discharge ) losartan (COZAAR) 100 MG Tablet Take 100 mg by mouth every morning. Discontin ued(Patie nt Discharge ) Lidocaine (Aspercreme Lidocaine) 4 % Patch 1 Patch by Transdermal route every 24 hours. Discontin ued(Patie nt Discharge ) lenalidomide 25 mg capsule (Revlimid) 25 MG Capsule Take 10 mg by mouth every other day. Discontin ued(Patie nt Discharge ) INSULIN GLARGINE SC 10 Units by Subcutaneous route daily. Discontin ued(Patie nt Discharge ) Insulin Glargine (LANTUS SOLOSTAR SC) 10 Units by Subcutaneous route daily. Discontin ued(Patie nt Discharge ) insulin aspart (NovoLOG) 100 unit/ml injection 5 Units by Subcutaneous route daily. Discontin ued(Patie nt Discharge ) ibuprofen (MOTRIN) 600 MG Tablet Take 600 mg by mouth every 6 hours as needed. Discontin ued(Patie nt Discharge ) hydrOXYzine (ATARAX) 25 MG Tablet Take 25 mg by mouth nightly. Discontin ued(Patie nt Discharge ) gabapentin (NEURONTIN) 300 MG Capsule Take 300 mg by mouth 2 times daily. Discontin ued(Patie nt Discharge ) fexofenadine (ROMAN) 180 MG Tablet Take 180 mg by mouth daily. Discontin ued(Patie nt Discharge ) famotidine (PEPCID) 40 MG Tablet Take 40 mg by mouth daily. Discontin ued(Patie nt Discharge ) empagliflozin (Jardiance) 25 MG Tablet Take 25 mg by mouth daily. Discontin ued(Patie nt Discharge ) doxycycline hyclate (VIBRAMYCIN) 100 MG Capsule Take 100 mg by mouth 2 times daily. Discontin ued(Patie nt Discharge ) docusate sodium (Colace) 100 MG Capsule Take 100 mg by mouth 2 times daily as needed. Discontin ued(Patie nt Discharge ) cyclobenzaprine (FLEXERIL) 10 MG Tablet Take 10 mg by mouth 2 times daily. Discontin ued(Patie nt Discharge ) carvedilol (COREG) 12.5 MG Tablet Take 12.5 mg by mouth 2 times daily. Discontin ued(Patie nt Discharge ) camphor-menthol (SARNA) 0.5-0.5 % Lotion Apply as needed for Itching. Apply to affected area 3 x daily as needed for itching Discontin ued(Patie nt Discharge ) buPROPion SR (WELLBUTRIN SR) 150 MG TABLET SR 12 HR Take 150 mg by mouth 2 times daily. Discontin ued(Patie nt Discharge ) baclofen (LIORESAL) 5 MG Tablet Take by mouth 3 times daily. Discontin ued(Patie nt Discharge ) atenolol (TENORMIN) 50 MG Tablet Take 50 mg by mouth every morning. 09/16/2 025 Discontin ued(Patie nt Discharge ) apixaban (Eliquis) 5 MG Tablet Take 5 mg by mouth 2 times daily. 025 Discontin ued(Patie nt Discharge ) amoxicillin (AMOXIL) 875 MG Tablet Take 875 mg by mouth 2 times daily. 025 Discontin ued(Patie nt Discharge ) Encounters Date Type Department Care Team Description 07/02/2025 Travel 06/01/2025 Travel from Last 3 Months Family History Medical History Relation Name Comments No Known Problems Father knows no i nformation on father Cancer Maternal Grandfather No Known Problems Mother Cancer Sister Relation Name Status Comments Father Maternal Grandfather Mother Alive Sister Social History Tobacco Use Types Packs/Day [...] - - Weight 113.4 kg (250 lb) 07/02/2025 11:43 AM CDT Height 182.9 cm (6') 07/02/2025 11:43 AM CDT Body Mass Index 33.91 07/02/2025 11:43 AM CDT Plan of Treatment Health Maintenance Due Date Last Done Comments TdaP Immunization 1978 Hepatitis B Immunization (1 of 3 - 19+ 3-dose series) 1997 Pneumococcal Immunization Co mbined (1 of 2 - PCV) 1997 Cologuard 2023 Colonoscopy 2023 Colorectal Cancer Screening 2023 Immunochemical Fecal Occult Blood 2023 Influenza Immunization (#1) 2025 SARS-COV-2 Immunization ( - season) 2025 Respiratory Syncytial Virus (RSV) Immunization (Adult) [...] to complete this topic Insurance MEDICAID AETNA [facility] Care Teams Fruit And Vegetable Factory Worker Relationship Specialty Start Date End Date Matthew Sorenson PAC [address] [place] [address] PCP - General Physician Frontend Engineer 04/27/25
--- OUTSIDE RECORDS SUMMARY | 2025-07-21 08:44 | XMS_ITS | Encounter Summary ---
Author Organization [facility] Address [address] [facility] [place] [address] Care Team Providers Care Water Purifier Operator Name Role Phone Matthew Sorenson Primary Care Provider [phone] Jose Luis Brooks MD Unavailable [phone] Abelardo Presley MD Unavailable [phone] Bo Francisco MD Unavailable [phone] Angie Rogers MD Unavailable Katie GutierrezD Unavailable Unavaila Jaja Casillas RN Unavailable Unavailable Abimbola Waters STENO POOL SUPERVISOR-INTERNET MANAGER Unavailable [phone] Perri Dexter STENO POOL SUPERVISOR-INTERNET MANAGER Unavailable [phone] Marilyn Bennett RN Unavailable Unavailable Erasmo Roberson RN Unavailable Unavailable Alexandra Cota RN Unavailable Unavailable Alda Braswell Unavailable Unavailable Lucia Sharif LCSW Unavailable Unavailab le Reason for Visit * Reason Onset Date Comments MEDICATION REFILL 10/20/2024 Encounter Details Date Type Department Care Team (Late st Contact Info) Description 10/20/2024 Refill [facility] - Hematology/Oncology [address] [place] [address] Jose Luis Brooks MD [address] [facility] [place] [address] MEDICATION REFILL Social History Tobacco [...] Recorded Patient Health Questionnaire-2 Score 1 08/12/2024 [facility] - Occupational [...] on file Legal 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 Gender Identity Not on file Sexual [...] documented as of this encounter Care Teams Water Purifier Operator Relationship Specialty Start Date End Date Matthew Sorenson PA [address] [place] [address] PCP - General 02/02/22 Jose Luis Brooks MD [address] [place] [phone] Lumber Buyer/Oncologis t Hematology and Oncology 08/29/24 05/27/25 Abelardo Presley MD [address] [place] [phone] Hematology and Oncology 08/29/24 03/04/25 Bo Francisco MD [address] [place] [phone] Hematology and Oncology 08/29/24 03/04/25 Angie Rogers MD [address] [place] [phone] Physician Hematology and Oncology 08/29/24 03/04/25 Katie Gutierrez, PharmD 08/29/24 03/04/25 Jaja Rayo RN Registered Nurse 08/29/24 03/04/25 Abimbola Waters APRN-CNP [facility] [place] [address] Nurse Practitioner Nurse Practitioner 08/29/24 03/04/25 Perri Dexter APRN-CNP [address] [place] [phone] Nurse Practitioner Nurse Practitioner 08/29/24 03/04/25 Marilyn Bennett, RN Coordinator 08/29/24 05/27/25 Erasmo Roberson, RN Registered Nurse 08/29/24 03/04/25 Alexandra Cota, RN Registered Nurse 08/29/24 03/04/25 Alda Braswell 08/29/24 03/04/25 Lucia Sharif, CONSERVATION SPECIALIST Electronics Supervisor 08/29/24 03/04/25 documented as of this encounter
[2025-07-21 08:53] LABS: Alanine Aminotransferase 33 U/L (6-50); Albumin Level 4.2 g/dL (3.5-5.1); Alkaline Phosphatase 86 U/L (38-126); Anion Gap 10 mmol/L (4-12); Aspartate Amino Transferase 26 U/L (17-59); Bilirubin,Total 0.5 mg/dL (0.2-1.3); Blood Urea Nitrogen 14 mg/dL (9-20); Calcium 9.4 mg/dL (8.4-10.2); Carbon Dioxide 24 mmol/L (22-30); Chloride 108 mmol/L (98-107); Estimated CRCL calculation 128 ml/min; Estimated Glomerular Filt Rate > 60; Glucose 145 mg/dL (65-110); Osmolality Calculated 297 mOsm/kg (285-295); Potassium 3.7 mmol/L (3.4-5.0); Sodium 142 mmol/L (137-145); Total Protein 6.5 g/dL (6.3-8.2)
[2025-07-21] MEDS: diphenhydrAMINE HCl CAP 25 MG CAPSULE PO (09:10)
[2025-07-21] MEDS: ACETAMINOPHEN 325 MG TABLET 650 MG PO (09:10)
[2025-07-21] MEDS: FAMOTIDINE 20 MG TABLET PO (09:10)
[2025-07-21] MEDS: DARATUMUMAB-HYALURONIDASE-FIHJ 1,800 MG-30,000 UNITS VIAL 15 ML SUB-Q (09:32)
[2025-07-21 10:20] VITALS: BP 129/69; PULSE 68; RESP 14; TEMP 36.6; O2SAT 97
--- NOTE | 2025-07-21 10:32 | PC.NURSE ---
Tolerated Daratumumab with Hyaluronidase injection well. See MAR/patient care notes.
== END 2025-07-21 08:23 | disposition home or self-care (01) ==
PROVIDERS: PCP Physician Assistant; Visit Provider Internal Medicine Hematology
DX: Z51.11 Encounter for antineoplastic chemotherapy (principal); C90.00 Multiple myeloma not having achieved remission
CPT/HCPCS: 36415; 80053; 85027; 96401; A9270; J8540; J9144

== ENCOUNTER 2025-07-28 08:29 | Outpatient (CLI) | payer OTHER, SELFPAY ==
--- OUTSIDE RECORDS SUMMARY | 2025-02-19 11:37 | XMS_ITS | Encounter Summary ---
Author Organization [facility] Address [address] [place] [address] Care Team Providers Care Plan Checker Name Role Phone Matthew Sorenson Primary Care Provider [phone] Jose Luis Brooks MD Unavailable [phone] Abelardo Presley MD Unavailable [phone] Bo Francisco MD Unavailable [phone] Angie Rogers MD Unavailable Katie GutierrezD Unavailable Unavaila Jaja Casillas RN Unavailable Unavailable Abimbola Waters PSYCHIATRIC SPECIALIST-ROBOTICS TECHNICIAN Unavailable [phone] Perri Dexter PSYCHIATRIC SPECIALIST-ROBOTICS TECHNICIAN Unavailable [phone] Marilyn Bennett RN Unavailable Unavailable Erasmo Roberson RN Unavailable Unavailable Alexandra Cota RN Unavailable Unavailable Alda Braswell Unavailable Unavailable Lucia Sharif LCSW Unavailable Unavailab le Reason for Referral * (Routine) - Open Specialty Diagnoses / Procedures Referred By Contac t Referred To Contact Procedures Follow up with provider Juan Valencia MD [address] [place] [address] Phone: tel: fax: Referral ID Status Reason Start Date Expiration Date Visits Re quested Visits Authorized [id number] Open 02/19/2025 02/19/2026 1 1 * Radiology Services (Routine) - Open Specialty Diagnoses / Procedures Referred By Contac t Referred To Contact Diagnoses Hepatitis C virus infection without hepatic coma, unspecified chronicity History of multiple myeloma Procedures CT US Guided Needle Placement IR Perc Liver Biopsy Juan Valencia MD [address] [facility] [address] [place] [address] Phone: tel: fax: [facility] [address] [place] [address] Phone: tel: Referral ID Status Reason Start Date Expiration Date Visits Re quested Visits Authorized [id number] Open 02/19/2025 02/19/2026 1 1 Reason for Visit * Auth/Cert (Routine) Specialty Diagnoses / Procedures Referred By Contac t Referred To Contact Diagnoses Chronic hepatitis C without hepatic coma (HCC) Transaminitis Chronic hepatitis C without hepatic coma (HCC) [B18.2] Transaminitis [R74.01] Procedures [place] US GUIDED NEEDLE PLACEMENT BIOPSY LIVER (NEEDLE/PERCUTANEOUS) Referral ID Status Reason Start Date Expiration Date Visits Re quested Visits Authorized [id number] 1 1 Encounter Details Date Type Department Care Team (Latest Contact Info) Description 02/19/2025 11:37 AM CDT Hospital Encounter [facility] IVR [address] [place] [phone] Juan Valencia MD [facility] [facility] 2L [place] [address] [facility] Radiology Social History Tobacco Use Types [...] Recorded Patient Health Questionnaire-2 Score 0 11/20/2024 [facility] - Occupational [...] any time in the past 12 m [facility], were you homeless or living in a care home (including now)? 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 Callum Guerrero MD Administrator Of Home Health Vascular & Interventional Radiology 02/20/2025 5:30 AM documented in this encounter Miscellaneous Notes * Clinical References AVS - Richie Alejandro RN - 02/19/2025 1:22 PM CDT Images from the original note were not included. [id number] Liver Biopsy A liver biopsy is when [...] naproxen. ?? Medicines for heart conditions ?? Btbj-aou-elpdoxw medicines ?? All prescription medicines ?? Illegal [...] belly Last Reviewed Date: 2023 00:00:00 ?? [id number] [employer]. All rights reserved. This information is not [...] evaluation, please review the evaluation forms in [facility]. For details on monitored clinical parameters during the intra-service sedation time, please review the procedure nurse documentation in [facility]. > Dictated by Seng Gaston MD (Apple Checker) 02/19/2025 12:59 PM Callum Mondragon MD have [...] response to care. Intra-service sedation start time [id number] hours and end time was 1236 hours during which I was present. Total physician intra-service sedation time was 30 minutes. For details on pre moderate sedation and post moderate sedation patient evaluation, please review the evaluation forms in [facility]. For details on monitored clinical parameters during the intra-service sedation time, please review the procedure nurse documentation in [facility]. > Dictated by Seng Gaston MD (Apple Checker) 02/19/2025 12:59 PM Callum Mondragon MD have personally reviewed and interpreted this examination/study. > Interpreting Provider: Callum Guerrero MD on 02/24/2025 5:33 PM Juan Valencia MD CT ORDERABLES Final Result * PATHOLOGY TISSUE (02/19/2025 12:34 PM CDT) Case Report Surgical Pathology Report Case: [id number] Authorizing Provider: Juan Valencia MD Collected: 02/19/2025 12:34 PM Ordering Location: [facility] IVR Received: 02/19/2025 01:06 PM Pathologist: Sammi Escalante MD Specimen: Liver Needle Biopsy, liver bx 02/20/2025 3:50 PM CDT [facility] Final Diagnosis Liver, biopsy (A): - Chronic hepatitis with minimal-mild activity - Steatosis and lobular inflammation without ballooning - Cirrhosis, see comment 02/20/2025 3:50 PM CDT [facility] at 1550 [...] 8 (steatosis-1, inflammation-1, ballooning-0). 02/20/2025 3:50 PM [facility] Clinical History The patient is a 44-year-old man with history of hepatitis C infection and appearance of cirrhosis on diagnostic imaging. Operative procedure: Ultrasound-guided random core liver biopsy 02/20/2025 3:50 PM [facility] Gross Description The requisition and specimen(s) are identified with the patient's name, Joselito Nguyen. Received in formalin, specimen A, are two baldwin-pink needle cores, 1.7 and 1.0 cm, both 0.1 cm diameter, submitted in toto in cassette A1. IKD 02/20/2025 3:50 PM [facility] Pathologist Location at [facility] 02/20/2025 3:50 PM [facility] Disclaimer The performance characteristics of all immunohistochemical and indirect immunofluorescence stains (if any) cited in this report were determined by the Histopathology Laboratory of [facility]. Some of these tests were developed by [...] the attending (teaching) pathologist. 02/20/2025 3:50 PM [facility] Collected By Balbir Rdz RN 3:50 PM [facility] Embedded Images 02/20/2025 3:50 PM [facility] Pathology/Cytolo gy NEEDLE BIOPSY OF LIVER / Unknown Collection / Unknown 02/19/2025 12:34 PM CDT 02/19/2025 1:06 PM CDT Comment:LIVER NEEDLE BIOPSY Juan Valencia MD LAB - PATHOLOGY/CYTOLOGY ORDER LISSETH Final Result [facility] [address] [place] [address], [facility] [phone] documented in this encounter Visit Diagnoses Diagnosis [...] documented as of this encounter Care Teams Plan Checker Relationship Specialty Start Date End Date Matthew Sorenson PA [address] [place] [address] PCP - General 02/02/22 Jose Luis Brooks MD [address] [place] [address] Case Operator/Oncologis t Hematology and Oncology 08/29/24 05/27/25 Abelardo Presley MD [address] [place] [address] Hematology and Oncology 08/29/24 03/04/25 Bo Francisco MD [address] [place] [phone] Hematology and Oncology 08/29/24 03/04/25 Angie Rogers MD [address] [place] [phone] Physician Hematology and Oncology 08/29/24 03/04/25 Katie Gutierrez, PharmD 08/29/24 03/04/25 Jaja Rayo, RN Registered Nurse 08/29/24 03/04/25 Abimbola Waters, DAYNA-ROBOTICS TECHNICIAN [address] [place] [phone] Nurse Practitioner Nurse Practitioner 08/29/24 03/04/25 Perri Dexter APRN-CNP [address] [place] [address] Nurse Practitioner Nurse Practitioner 08/29/24 03/04/25 Marilyn Bennett, RN Coordinator 08/29/24 05/27/25 Erasmo Roberson, RN Registered Nurse 08/29/24 03/04/25 Alexandra Cota, RN Registered Nurse 08/29/24 03/04/25 Alda Braswell 08/29/24 03/04/25 Lucia Sharif, SUPERVISOR GROVE Infusion Nurse 08/29/24 03/04/25 documented as of this encounter
--- OUTSIDE RECORDS SUMMARY | 2025-07-28 08:44 | XMS_ITS | Clinical Summary ---
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
--- OUTSIDE RECORDS SUMMARY | 2025-07-28 08:44 | XMS_ITS | Encounter Summary ---
Author Organization [facility] Address [address] [facility] [place] [address] Care Team Providers Care Ginner Name Role Phone Matthew Sorenson Primary Care Provider [phone] Jose Luis Brooks MD Unavailable [phone] Abelardo Presley MD Unavailable [phone] Bo Francisco MD Unavailable [phone] Angie Rogers MD Unavailable Katie GutierrezD Unavailable Unavaila Jaja Casillas RN Unavailable Unavailable Abimbola Waters HEAD ANIMAL KEEPER-DIRECTOR CORPORATE SECURITY Unavailable [phone] Perri Dexter HEAD ANIMAL KEEPER-DIRECTOR CORPORATE SECURITY Unavailable [phone] Marilyn Bennett RN Unavailable Unavailable Erasmo Roberson RN Unavailable Unavailable Alexandra Cota RN Unavailable Unavailable Alda Braswell Unavailable Unavailable Lucia Sharif LCSW Unavailable Unavailab le Reason for Visit * Reason Onset Date Comments MEDICATION REFILL 10/20/2024 Encounter Details Date Type Department Care Team (Late st Contact Info) Description 10/20/2024 Refill [facility] [address] [place] [address] Gina Denton MD [address] [place] [address] MEDICATION REFILL Social History Tobacco Use Types [...] Recorded Patient Health Questionnaire-2 Score 1 08/12/2024 [facility] of Occupat ional Health - Occupational [...] in the past 12 m [facility], were you homeless or living in a usp (including now)? 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 Gender Identity Not on file Sexual [...] documented as of this encounter Care Teams Ginner Relationship Specialty Start Date End Date Matthew Sorenson PA [address] [place] [address] PCP - General 02/02/22 Jose Luis Brooks MD [facility] [place] [address] Family Advocate/Oncologis t Hematology and Oncology 08/29/24 05/27/25 Abelardo Presley MD [facility] [place] [address] Hematology and Oncology 08/29/24 03/04/25 Bo Francisco MD [address] [place] [phone] Hematology and Oncology 08/29/24 03/04/25 Angie Rogers MD [address] [place] [phone] Physician Hematology and Oncology 08/29/24 03/04/25 Katie Gutierrez, PharmD 08/29/24 03/04/25 Jaja Rayo RN Registered Nurse 08/29/24 03/04/25 Abimbola Waters APRN-CNP [address] [place] [address] Nurse Practitioner Nurse Practitioner 08/29/24 03/04/25 Perri Dexter APRN-CNP [address] [place] [phone] Nurse Practitioner Nurse Practitioner 08/29/24 03/04/25 Marilyn Bennett, LOLI Coordinator 08/29/24 05/27/25 Erasmo Roberson, RN Registered Nurse 08/29/24 03/04/25 Alexandra Cota, RN Registered Nurse 08/29/24 03/04/25 Alda Braswell 08/29/24 03/04/25 Lucia Sharif, TELEVISION MAINTENANCE WORKER Slab Conditioner Supervisor 08/29/24 03/04/25 documented as of this encounter
--- OUTSIDE RECORDS SUMMARY | 2025-07-28 08:44 | XMS_ITS | Encounter Summary ---
Author Organization [facility] Address [address] [facility] [place] [address] Care Team Providers Care Wagon Driver Name Role Phone Matthew Sorenson Primary Care Provider [phone] Jose Luis Boroks MD Unavailable [phone] Abelardo Presley MD Unavailable [phone] Bo Francisco MD Unavailable [phone] Angie Rogers MD Unavailable Katie GutierrezD Unavailable Unavaila Jaja Casillas RN Unavailable Unavailable Abimbola Waters ESCROW REPRESENTATIVE-LIBRARIAN SCHOOL Unavailable [phone] Perri Dexter ESCROW REPRESENTATIVE-LIBRARIAN SCHOOL Unavailable [phone] Marilyn Bennett RN Unavailable Unavailable Erasmo Roberson RN Unavailable Unavailable Alexandra Cota RN Unavailable Unavailable Alda Braswell Unavailable Unavailable Lucia Sharif LCSW Unavailable Unavailab le Reason for Visit * Reason Onset Date Comments MEDICATION REFILL 10/20/2024 Encounter Details Date Type Department Care Team (Late st Contact Info) Description 10/20/2024 Refill [facility] - Hematology/Oncology [address] [place] [address] Jose Luis Brooks MD [address] [facility] [place] [address] MEDICATION REFILL Social History Tobacco [...] Patient Health Questionnaire-2 Score 1 08/12/2024 [facility] of Occupat ional Health [...] place to sleep or slept in a m[facility] (including now)? No 06/04/2024 Housing Stability Vital [...] were you homeless or living in a mcc (including now)? 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 Gender Identity Not on file Sexual [...] documented as of this encounter Care Teams Wagon Driver Relationship Specialty Start Date End Date Matthew Sorenson PA [address] [place] [address] PCP - General 02/02/22 Jose Luis Brooks MD [address] [place] [phone] Rolling Chair Pusher/Oncologis t Hematology and Oncology 08/29/24 05/27/25 Abelardo Presley MD [address] [place] [phone] Hematology and Oncology 08/29/24 03/04/25 Bo Francisco MD [address] [place] [phone] Hematology and Oncology 08/29/24 03/04/25 Angie Rogers MD [address] [place] [phone] Physician Hematology and Oncology 08/29/24 03/04/25 Katie Gutierrez, PharmD 08/29/24 03/04/25 Jaja Rayo RN Registered Nurse 08/29/24 03/04/25 Abimbola Waters APRN-CNP [facility] [place] [address] Nurse Practitioner Nurse Practitioner 08/29/24 03/04/25 Perri Dexter APRN-CNP [address] [place] [phone] Nurse Practitioner Nurse Practitioner 08/29/24 03/04/25 Marilyn Bennett, RN Coordinator 08/29/24 05/27/25 Erasmo Roberson, RN Registered Nurse 08/29/24 03/04/25 Alexandra Cota, RN Registered Nurse 08/29/24 03/04/25 Alda Braswell 08/29/24 03/04/25 Lucia Sharif, PRE CERTIFICATION SPECIALIST Log Getter 08/29/24 03/04/25 documented as of this encounter
--- OUTSIDE RECORDS SUMMARY | 2025-07-28 08:44 | XMS_ITS | Clinical Summary ---
Author Organization [facility] Address [address] [address] Phone Care Team Providers Care Trailers And Motor Homes Salesperson Name Role Phone Imanquentin Matthew Bebe RAWLS Primary Care Provider [phone] Allergies Active Allergy Reactions Criticality Noted Date [...] to complete this topic Insurance MEDICAID AETNA [facility] Care Teams Trailers And Motor Homes Salesperson Relationship Specialty Start Date End Date Matthew Sorenson PAC [address] [place] [address] PCP - General Physician Sales Attendant Building Materials 04/27/25
--- OUTSIDE RECORDS SUMMARY | 2025-07-28 08:44 | XMS_ITS ---
Author Organization [facility] Address [address] [place] [address] Care Team Providers Care Director Risk Name Role Phone Matthew Sorenson Primary Care Provider Active Problems Problem Noted Date Diagnosed Date [...]
--- OUTSIDE RECORDS SUMMARY | 2025-07-28 08:45 | XMS_ITS | Clinical Summary ---
Author Organization [facility] Address [address] [place] [address] Care Team Providers Care Cable Puller Name Role Phone Matthew Sorenson Primary Care Provider [phone] Source Comments [facility],non-owned Affiliates and Associated Physician Practices is amultiple site organization consisting of ambulatory clinics and hospital sitesin [place], [place], [place] and [place]. This disclosure is being madepursuant to the Care Everywhere program and may not contain all information available regarding this patient. Last updated 18.[facility] Allergies Active Allergy Reactions Criticality Noted Date [...] verio strips, Reported on 02/26/2025 Continuous Glucose Automotive Brake Technician (Dexcom G7 Automotive Brake Technician) SONIA as directed Act khari Continuous Glucose [...] once daily Activ e TRUEplus 5-Bevel Pen Tok[place] 31G X 6 MM MISC USE TO [...] - 06/15/2025 11:59 PM CDT Hospital Encounter [facility] MRI [address] [place] [address] Robb Wakefield MD Discharge Disposition: Home or Self Care 06/05/2025 Telephone Transitional Care at [address] [address] Rena Solano RN Missed Appointment 06/02/2025 Telephone Transitional Care at [address] [address] Malu Noyola MA Question 06/01/2025 Telephone Transitional Care at [address] [address] Rena Solano RNsausage linker 06/01/2025 Travel 05/28/2025 Travel 05/27/2025 11:33 PM CDT - 05/31/2025 9:25 AM CDT Hospital Encounter [facility] [place] [address] [place] [address] Cristian Garcia MD Kent, Saida A, MD Felgenhauer, Joshua, MD Emergency Medicine Discharge Disposition: Home or Self Care 05/04/2025 Refill [facility] [address] [place] [address] Perri Dexter APRN-MOTOR VEHICLE EMISSIONS INSPECTOR Refill Request from Last 3 Months Family [...] Recorded Patient Health Questionnaire-2 Score 0 11/20/2024 [facility] - Occupational [...] any time in the past 12 m [facility], were you homeless or living in a fpc (including now)? 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 Gender Identity Not on file Sexual Orientation [...] this topic Medical Devices Implanted Type Area Ribbon Weaver Device Identifier Shelf Expiration Date Model / Serial / Lot Kit Spnl 5.8mm Spinejack Implanted:Qty: 1 on 07/22/2024 by Arya Rm MD at [facility] N/A: Spine Lumbar [place] Spine 10/28/2024 [id number] / / [id number] Kit Bone Cmnt Vertaplex Hv Autoplex Wo Implanted:Qty: 1 on 07/22/2024 by Arya Rm MD at [facility] N/A: Spine Lumbar [place] Spine 05/29/2025 [id number] / / [id number] Port Implinfn Powerport Clrvu Argd Nya Implanted:Qty: 1 on 08/20/2024 by Vic Callahan MD at [facility] Right: Chest Wall Bard Peripheral Vascular 08/28/2025 [id number] / / [id number] Mixer Bone Cmnt Kyphon C20gm Ll Fit Implanted:Qty: 1 on 12/02/2024 by Arya Rm MD at [facility] N/A: Spine Lumbar Kyphon Inc [id number] / / Cmnt Bone Hv-R Kphx Mxr Grad Mrk Dspns Implanted:Qty: 1 on 12/02/2024 by Arya Rm MD at [facility] N/A: Spine Lumbar Kyphon Inc [id number] / / Graft Bone Grftn Dbm Plif 10x2.5cm Implanted:Qty: 1 on 12/02/2024 by Arya Rm MD at [facility] N/A: Spine Lumbar Osteotech Inc [id number] / / Ezekiel Spnl 500mm 5.5mm Cd Hzn Str Ti Ln Cp Implanted:Qty: 1 on 12/02/2024 by Arya Rm MD at [facility] N/A: Spine Lumbar Medtronic Inc [id number] / / Graft Bone Grftn Dbm Aspt 5x2.5cm Post Implanted:Qty: 1 on 12/02/2024 by Arya Rm MD at [facility] N/A: Spine Lumbar Medtronic Inc [id number] / / Screw Set Ti Spnl Brk Off Cd Hzn Nonster Implanted:Qty: 8 on 12/02/2024 by Arya Rm MD at [facility] N/A: Spine Lumbar Medtronic Inc [id number] / / Screw 7.5mm 55mm Ma Spne Solera Cd Hzn Implanted:Qty: 2 on 12/02/2024 by Arya Rm MD at [facility] N/A: Spine Lumbar Medtronic Inc [id number] / / Screw 7.5mm 50mm Ma Spne Solera Cd Hzn Implanted:Qty: 6 on 12/02/2024 by Arya Rm MD at [facility] Medtronic Inc [id number] / / Slnt Dura Duraseal Pg Trilysine Amine 5 Implanted:Qty: 1 on 12/02/2024 by Arya Rm MD at [facility] N/A: Spine Lumbar SecureWorksa Infoniqa GroupciHashParade Thang / / Explanted Type Area Ribbon Weaver Device Identifier Shelf Expiration Date Model / Serial / Lot Kit Osteocool Srg 10ga Bone Acc Explanted:Qty: 2 on 07/22/2024 by Arya Rm MD at [facility] N/A: Spine Lumbar Medtronic Inc [id number] / / [id number] Description:Access device, n ot an implant. No other options in system Probe 17ga 20mm Rf Eltx Osteocool 2mm Explanted:Qty: 1 on 07/22/2024 by Arya Rm MD at [facility] N/A: Spine Lumbar Medtronic Inc 03/26/2027 [id number] / / [id number] Description:Access device, n ot an implant. No [...] DATE/TIME OF EXAM: 06/15/2025 10:11 AM, LOCATION [facility] INDICATION: C90.00: Multiple myeloma, remission status [...] DATE/TIME OF EXAM: 06/15/2025 10:11 AM, LOCATION [facility] INDICATION: C90.00: Multiple myeloma, remission status [...] 41 - 74 % 05/31/2025 8:08 AM [facility] Lymphocyte % 48(H) 17 - 47 % 05/31/2025 8:08 AM [facility] Monocyte % 7 3 - 11 % 05/31/2025 8:08 AM [facility] Basophil % 2 0 - 2 % 05/31/2025 8:08 AM [facility] Neutrophil Absolute 5.38 1.60 - 7.50 x10E9/L 05/31/2025 8:08 AM [facility] Lymphocyte Absolute 6.00(H) 1.00 - 4.40 x10E9/L 05/31/2025 8:08 AM [facility] Monocyte Absolute 0.88 0.15 - 1.00 x10E9/L 05/31/2025 8:08 AM [facility] Basophil Absolute 0.25(H) 0.00 - 0.13 x10E9/L 05/31/2025 8:08 AM [facility] RBC Morphology REVIEWED 05/31/2025 8:08 AM [facility] Large Platelets PRESENT(A) (none) 05/31/2025 8:08 AM [facility] Blood BLOOD SPECIMEN / Unknown Lab Venipuncture / Unknown 05/31/2025 6:56 AM CDT 05/31/2025 7:31 AM CDT us Cristian Garcia MD LAB - HEMATOLOGY ORDERABLES F inal Result [facility] [address] [place] [address], [facility] [phone] * (ABNORMAL) CBC W AUTO DIFFERENTIAL (05/31/2025 6:56 AM CDT) Only the most recent of4 resultswithin the time period is included. WBC 12.5(H) 4.0 - 10.7 x10E9/L 05/31/2025 8:08 AM [facility] RBC Count 5.46 4.30 - 5.80 x10E12/L 05/31/2025 8:08 AM [facility] Hemoglobin 15.5 13.3 - 17.5 g/dL 05/31/2025 8:08 AM [facility] Hematocrit 46.6 38.7 - 51.1 % 05/31/2025 8:08 AM [facility] MCV 85.3 80.0 - 98.0 fL 05/31/2025 8:08 AM [facility] MCH 28.4 26.7 - 33.6 pg 05/31/2025 8:08 AM [facility] MCHC 33.3 31.7 - 36.3 g/dL 05/31/2025 8:08 AM [facility] RDW-CV 15.1(H) 11.3 - 14.8 % 05/31/2025 8:08 AM [facility] Platelet Count 216 150 - 420 x10E9/L 05/31/2025 8:08 AM [facility] MPV 11.0 7.8 - 11.4 fL 05/31/2025 8:08 AM [facility] Blood BLOOD SPECIMEN / Unknown Lab Venipuncture / Unknown 05/31/2025 6:56 AM CDT 05/31/2025 7:31 AM CDT us Cristian Garcia MD LAB - HEMATOLOGY ORDERABLES F inal Result [facility] [address] [place] [address], [facility] [phone] * (ABNORMAL) RENAL FUNCTION PANEL (05/31/2025 6:56 AM CDT) Only the most recent of3 resultswithin the time period is included. BUN 14 7 - 26 mg/dL 05/31/2025 8:02 AM [facility] Creatinine 0.74 0.71 - 1.16 mg/dL 05/31/2025 8:02 AM [facility] Sodium 138 136 - 145 mmol/L 05/31/2025 8:02 AM [facility] Potassium 3.8 3.5 - 4.5 mmol/L 05/31/2025 8:02 AM [facility] Chloride 108(H) 98 - 107 mmol/L 05/31/2025 8:02 AM [facility] CO2 26 22 - 29 mmol/L 05/31/2025 8:02 AM [facility] Glucose 120(H) 70 - 99 mg/dL 05/31/2025 8:02 AM [facility] Albumin 4.0 3.4 - 5.0 g/dL 05/31/2025 8:02 AM [facility] Calcium 8.7 8.4 - 10.2 mg/dL 05/31/2025 8:02 AM [facility] Phosphorus 3.5 2.8 - 5.1 mg/dL 05/31/2025 8:02 AM [facility] Anion Gap 4(L) 6 - 16 05/31/2025 8:02 AM [facility] BUN/Creatinine Ratio 19 7 - 23 05/31/2025 8:02 AM [facility] Osmolality Calculated 288 275 - 295 mOsm/kg 05/31/2025 8:02 AM [facility] eGFR by CKD-EPI >90 >=90 mL/min/1.7 3 m2 05/31/2025 8:02 AM [facility] Comment:Estimated Glomerular Filtration Rate (eGFR) calculated using the CKD-EPI Creatinine Equation (2020), per the National Kidney Foundation and [employer] Society of Nephrology recommendations. Blood BLOOD SPECIMEN / Unknown Lab Venipuncture / Unknown 05/31/2025 6:56 AM CDT 05/31/2025 7:31 AM CDT Cristian Garcia MD LAB - CHEMISTRY ORDERABLES Fi nal Result Performing Organization Address City/[facility]/ZIP Co de Phone Number [facility] [address] [place] [address], [place] [phone] * MAGNESIUM BLOOD (05/31/2025 6:56 AM CDT) Only the most recent of3 resultswithin the time period is included. Magnesium 1.9 1.6 - 2.6 mg/dL 05/31/2025 8:02 AM CDT [facility] Blood BLOOD SPECIMEN / Unknown Lab Venipuncture / Unknown 05/31/2025 6:56 AM CDT 05/31/2025 7:31 AM CDT Cristian Garcia MD LAB - CHEMISTRY ORDERABLES Fi nal Result Performing Organization Address City/[facility]/ZIP Co de Phone Number [facility] [address] [place] [address], [place] [phone] * GLUCOSE - POINT OF CARE (05/31/2025 6:14 AM CDT) Only the most recent of10 resultswithin the time period is included. Glucose WB/POC 98 70 - 99 mg/dL 05/31/2025 6:18 AM CDT [facility] Specimen Type Arterial/C apillary 05/31/2025 6:18 AM CDT [facility] Blood BLOOD SPECIMEN / Unknown 05/31/2025 6:14 AM CDT 05/31/2025 6:18 AM CDT Robb Wakefield MD LAB - POINT OF CARE ORDERA BLES Final Result [facility] [address] [facility] [place] [address], [place] [phone] * HEPATITIS C RNA QUANTITATIVE (05/29/2025 7:04 AM CDT) [facility] Hepatitis C RNA PCR, Interp Not detected Not detected 06/01/2025 10:14 AM CDT [facility] Hepatitis C Quant by PCR, Log NA log IU/mL 06/01/2025 10:14 AM CDT [facility] Blood BLOOD SPECIMEN / Unknown Lab Venipuncture / Unknown 05/29/2025 7:04 AM CDT 05/29/2025 8:58 AM CDT Narrative [facility] - 06/01/2025 10:14 AM CDT The Hepatitis C viral (HCV) RNA analysis utilized a serum sample, real-time reverse coffin maker PCR, and is reported as Not Detected, [...] the isolation of HCV RNA with reverse coffin maker of genomic HCV RNA followed by real-time PCR in the presence of an unrelated RNA internal control. The internal control ensures that RNA is isolated, and that no general significant inhibitors of the RT-PCR process are present. The analysis was performed using a U.S. FDA approved test methodology Nahum gomez HCV. Robb Wakefield MD LAB - CHEMISTRY ORDERABLES Final Result [facility] [address] [place] [address], [facility] [phone] * (ABNORMAL) HEMOGLOBIN A1C (05/29/2025 7:04 AM CDT) Hemoglobin A1c 6.1(H) <=5.6 % 05/29/2025 11:58 AM CDT [facility] Estimated Average Glucose 128 mg/dL 05/29/2025 11:58 AM CDT [facility] Comment: HbA1c Interpretation: Normal : < 5.7% Pre-diabetes: 5.7-6.4% Diabetes: Equal to or greater than 6.5% Test results diagnostic of diabetes should be repeated for confirmation. Treatment target values recommended by ADA and other clinical organizations should be used to evaluate metabolic control in patients. Reference: Chinese Diabetes Association, Standards of Care in Diabetes [...] LAB - CHEMISTRY ORDERABLES Fi nal Result [address] [address], [facility] [phone] * (ABNORMAL) C-REACTIVE PROTEIN (05/28/2025 1:59 PM CDT) C-Reactive Protein 0.6(H) <=0.5 mg/dL 05/28/2025 2:38 PM CDT [facility] Blood BLOOD SPECIMEN / Unknown Venipuncture / Unknown 05/28/2025 1:59 PM CDT 05/28/2025 2:10 PM CDT us Robb Wakefield MD LAB - CHEMISTRY ORDERABLES Final Result [address] [address], [place] [phone] * ERYTHROCYTE SEDIMENTATION RATE (05/28/2025 1:59 PM CDT) Erythrocyte Sedimentation Rate Yoni 8 0 - 15 MM/HR 05/28/2025 2:32 PM CDT [facility] Blood BLOOD SPECIMEN / Unknown Venipuncture / Unknown 05/28/2025 1:59 PM CDT 05/28/2025 2:10 PM CDT us Robb Wakefield MD LAB - HEMATOLOGY ORDERABLE S Final Result [facility] [address] [place] [address], [facility] [phone] * CT Lumbar Spine Wo Contrast (05/28/2025 [...] correlation for possible infection. > Dictated by Charge Auditor I, Natan Modi MD have personally reviewed and interpreted this examination/study. > Interpreting Provider: Natan Modi MD on 05/28/2025 10:09 AM Narrative 05/28/2025 10:09 AM CDT PROCEDURE: CT THORACIC SPINE WO CONTRAST, CT LUMBAR SPINE WO CONTRAST, DATE/TIME OF EXAM: 05/28/2025 3:39 AM, LOCATION [facility] INDICATION: M54.6: Acute midline thoracic back [...] DATE/TIME OF EXAM: 05/28/2025 3:39 AM, LOCATION [facility] INDICATION: M54.6: Acute midline thoracic back [...] L3 on L4. Redemonstration of a chronic U3favqfphke body fracture status post kyphoplasty. An irregular lytic lesion and the sclerotic changes with cortical enlargement are noted in the P9glsyfrbcp body. No acute fracture identified. Mild to [...] correlation for possible infection. > Dictated by Charge Auditor I, Natan Modi MD have personally reviewed [...] correlation for possible infection. > Dictated by Charge Auditor I, Natan Modi MD have personally reviewed and interpreted this examination/study. > Interpreting Provider: Natan Modi MD on 05/28/2025 10:09 AM Narrative 05/28/2025 10:09 AM CDT PROCEDURE: CT THORACIC SPINE WO CONTRAST, CT LUMBAR SPINE WO CONTRAST, DATE/TIME OF EXAM: 05/28/2025 3:39 AM, LOCATION [facility] INDICATION: M54.6: Acute midline thoracic back [...] DATE/TIME OF EXAM: 05/28/2025 3:39 AM, LOCATION [facility] INDICATION: M54.6: Acute midline thoracic back [...] L3 on L4. Redemonstration of a chronic F3scrnvclje body fracture status post kyphoplasty. An irregular lytic lesion and the sclerotic changes with cortical enlargement are noted in the U6jdnwlvpkh body. No acute fracture identified. Mild to [...] correlation for possible infection. > Dictated by Charge Auditor I, Natan Modi MD have personally reviewed and interpreted this examination/study. > Interpreting Provider: Natan Modi MD on 05/28/2025 10:09 AM Cristian Garcia MD CT ORDERABLES Final Result * TYPE + SCREEN PANEL (05/28/2025 1:26 AM CDT) Antibody Screen NEG 2:26 AM CDT [facility] ABO Rh O POS 05/28/2025 2:26 AM CDT [facility] Blood Bank BLOOD SPECIMEN / Unknown Venipuncture / Unknown 05/28/2025 1:26 AM CDT 05/28/2025 1:46 AM CDT Cristian Garcia MD LAB - BLOOD BANK ORDERABLES F inal Result [facility] [address] [place] [address] [phone] * (ABNORMAL) COMPREHENSIVE METABOLIC PANEL (05/28/2025 1:26 AM [facility]) BUN 14 7 - 26 mg/dL 05/28/2025 2:10 AM [facility] Creatinine 0.86 0.71 - 1.16 mg/dL 05/28/2025 2:10 AM [facility] Sodium 140 136 - 145 mmol/L 05/28/2025 2:10 AM [facility] Potassium 3.9 3.5 - 4.5 mmol/L 05/28/2025 2:10 AM [facility] Chloride 110(H) 98 - 107 mmol/L 05/28/2025 2:10 AM [facility] CO2 24 22 - 29 mmol/L 05/28/2025 2:10 AM [facility] Glucose 107(H) 70 - 99 mg/dL 05/28/2025 2:10 AM [facility] Calcium 8.9 8.4 - 10.2 mg/dL 05/28/2025 2:10 AM [facility] Protein Total 6.3 6.0 - 8.3 g/dL 05/28/2025 2:10 AM [facility] Albumin 4.3 3.4 - 5.0 g/dL 05/28/2025 2:10 AM [facility] Bilirubin Total 0.3 0.2 - 1.2 mg/dL 05/28/2025 2:10 AM [facility] Alkaline Phosphatase 129 40 - 150 U/L 05/28/2025 2:10 AM [facility] ALT 23 5 - 55 U/L 05/28/2025 2:10 AM [facility] AST 25 5 - 34 U/L 05/28/2025 2:10 AM [facility] Anion Gap 6 6 - 16 05/28/2025 2:10 AM [facility] BUN/Creatinine Ratio 16 7 - 23 05/28/2025 2:10 AM [facility] Osmolality Calculated 291 275 - 295 mOsm/kg 05/28/2025 2:10 AM [facility] Albumin/Globulin Ratio 2.2 1.1 - 2.3 05/28/2025 2:10 AM CDT [facility] eGFR by CKD-EPI >90 >=90 mL/min/1.7 3 m2 05/28/2025 2:10 AM T [facility] Comment:Estimated Glomerular Filtration Rate (eGFR) calculated using the CKD-EPI Creatinine Equation (2020), per the National Kidney Foundation and [employer] Society of Nephrology recommendations. Blood BLOOD SPECIMEN / Unknown Venipuncture / Unknown 05/28/2025 1:26 AM CDT 05/28/2025 1:39 AM CDT us Cristian Garcia MD LAB - CHEMISTRY ORDERABLES Fi nal Result [facility] [address] [place] [address], [place] [phone] * MICROALB/CREAT RATIO URINE RANDOM PANEL (06/28/2024 6:31 AM CDT) Albumin Random Urine <5.0 Not Established ug/mL 06/28/2024 9:49 PM T [facility] Creatinine Urine 82.62 Not Established mg/dL 06/28/2024 9:49 PM T [facility] Urine Albumin/Creati nine Ratio <6 <30 mg/g 06/28/2024 9:49 PM T [facility] Albumin/Creati nine Ratio Urine See Comment <30 mg/g 06/28/2024 9:49 PM T [facility] Comment:Unable to calculate the Urine Albumin/Creatinine Ratio due to one or more analyte concentration(s) being outside the measuring limits of the instrument. Urine URINE SPECIMEN OBTAINED BY CLEAN CATCH PROCEDURE / Unknown Collection / Unknown 06/28/2024 6:31 AM CDT 06/28/2024 7:54 PM CDT us Robb Gomez MD LAB - URINE CHEMISTRY ORDERA BLES Final Result Performing Organization Address City/[facility]/ZIP Co de Phone Number [facility] [address] [place] [address], [place] [phone] * HIV-1 HIV-2 ANTIBODY + HIV P24 AG PANEL (06/06/2024 11:59 AM CDT) HIV Antigen/Antibod y 1 & 2 Non-reacti ve Non-react khari 06/06/2024 12:58 PM CDT [facility] Comment:No Laboratory eviden ce of HIV infection. Blood BLOOD SPECIMEN / Unknown Lab Venipuncture / Unknown 06/06/2024 11:59 AM CDT 06/06/2024 12:07 PM CDT Gina Burt MD LAB - CHEMISTRY ORDERABLES Final Result [facility] [address] [place] [address], [facility] [phone] from Last 3 Months or Most Recently Relevant to Health Maintenance Additional Health Concerns Infection Onset Date Last Indicated 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 Insurance MEDICAID [employer] [facility] [place] Advance Directives Documents on File Type Date Recorded Patient Collect On Delivery Clerk Expl anation Adv Directive/Living Will/POA 08/13/2024 1:30 [...] 10:06 PM 10/01/2024 2:14 PM Care Teams Cable Puller Relationship Specialty Start Date End Date Matthew Sorenson PA [address] [place] [address] PCP - General 02/02/22
[2025-07-28 08:57] LABS: Hematocrit 51.0 % (40.0-54.0); Hemoglobin 17.1 g/dL (14.0-18.0); Mean Corpuscular HGB Conc 33.5 g/dL (32-36); Mean Corpuscular Hemoglobin 29.3 pg (27.0-31.0); Mean Corpuscular Volume 87.3 fL (78.0-102.0); Platelet Count Result 174 K/mm3 (150-420); Red Blood Count 5.84 M/mm3 (4.70-6.10); White Blood Count 7.0 K/mm3 (4.8-10.8)
[2025-07-28 09:10] VITALS: BP 124/69; PULSE 80; RESP 16; TEMP 36.6; O2SAT 98; BMI 33.7
[2025-07-28] MEDS: diphenhydrAMINE HCl CAP 25 MG CAPSULE PO (09:14)
[2025-07-28] MEDS: ACETAMINOPHEN 325 MG TABLET 650 MG PO (09:14)
[2025-07-28 09:16] LABS: Alanine Aminotransferase 43 U/L (6-50); Albumin Level 4.6 g/dL (3.5-5.1); Alkaline Phosphatase 101 U/L (38-126); Anion Gap 10 mmol/L (4-12); Aspartate Amino Transferase 30 U/L (17-59); Bilirubin,Total 0.7 mg/dL (0.2-1.3); Blood Urea Nitrogen 15 mg/dL (9-20); Calcium 9.4 mg/dL (8.4-10.2); Carbon Dioxide 20 mmol/L (22-30); Chloride 108 mmol/L (98-107); Estimated Glomerular Filt Rate > 60; Glucose 136 mg/dL (65-110); Osmolality Calculated 288 mOsm/kg (285-295); Potassium 4.8 mmol/L (3.4-5.0); Sodium 138 mmol/L (137-145); Total Protein 8.0 g/dL (6.3-8.2)
[2025-07-28] MEDS: FAMOTIDINE 20 MG TABLET PO (09:16)
[2025-07-28] MEDS: DARATUMUMAB-HYALURONIDASE-FIHJ 1,800 MG-30,000 UNITS VIAL 15 ML SUB-Q (09:30)
[2025-07-28 10:18] VITALS: BP 130/68; PULSE 80; RESP 14
--- NOTE | 2025-07-28 10:19 | PC.NURSE ---
Patient tolerated Daratumumab-hyaluronidase injection treatment well. SEE MAR/patient care notes.
== END 2025-07-28 08:30 | disposition home or self-care (01) ==
PROVIDERS: PCP Physician Assistant; Visit Provider Internal Medicine Hematology
DX: Z51.11 Encounter for antineoplastic chemotherapy (principal); C90.00 Multiple myeloma not having achieved remission
CPT/HCPCS: 36415; 80053; 85027; 96401; A9270; J8540; J9144

== ENCOUNTER 2025-08-04 08:26 | Outpatient (CLI) | payer OTHER, SELFPAY ==
--- OUTSIDE RECORDS SUMMARY | 2025-02-19 11:37 | XMS_ITS | Encounter Summary ---
Author Organization [facility] Address [address] [place] [address] Care Team Providers Care Health And Safety Tech Name Role Phone Matthew Sorenson Primary Care Provider [phone] Jose Luis Brooks MD Unavailable [phone] Abelardo Presley MD Unavailable [phone] Bo Francisco MD Unavailable [phone] Angie Rogers MD Unavailable Katie Gutierrez PharmD Unavailable Unavaila Jaja Casillas RN Unavailable Unavailable Abimbola Waters BASKET HAND WEAVER-PLANER OFFBEARER Unavailable [phone] Perri Dexter BASKET HAND WEAVER-PLANER OFFBEARER Unavailable [phone] Marilyn Bennett RN Unavailable Unavailable Erasmo Roberson RN Unavailable Unavailable Alexandra Cota RN Unavailable Unavailable Alda Braswell Unavailable Unavailable Lucia Sharif LCSW Unavailable Unavailab le Reason for Referral * (Routine) - Pending Review Specialty Diagnoses / Procedures Referred By Contac t Referred To Contact Procedures Follow up with provider Juan Valencia MD [address] [place] [address] Phone: tel: fax: Referral ID Status Reason Start Date Expiration Date V isits Requested Visits Authorized [id number] Pending Review 02/19/2025 02/19/2026 1 1 * Radiology Services (Routine) - Pending Review Specialty Diagnoses / Procedures Referred By Vikash winters Referred To Contact Diagnoses Hepatitis C virus infection without hepatic coma, unspecified chronicity History of multiple myeloma Procedures CT US Guided Needle Placement IR Perc Liver Biopsy Juan Valencia MD [address] [facility] [address] [place] [address] Phone: tel: fax: [facility] [address] [place] [address] Phone: tel: Referral ID Status Reason Start Date Expiration Date V isits Requested Visits Authorized [id number] Pending Review 02/19/2025 02/19/2026 1 1 Reason for Visit * Auth/Cert (Routine) Specialty Diagnoses / Procedures Referred By Vikash winters Referred To Contact Diagnoses Chronic hepatitis C without hepatic coma (HCC) Transaminitis Chronic hepatitis C without hepatic coma (HCC) [B18.2] Transaminitis [R74.01] Procedures [place] US GUIDED NEEDLE PLACEMENT BIOPSY LIVER (NEEDLE/PERCUTANEOUS) Referral ID Status Reason Start Date Expiration Date Visits Re quested Visits Authorized [id number] 1 1 Encounter Details Date Type Department Care Team (Latest Contact Info) Description 02/19/2025 11:37 AM CDT Hospital Encounter [facility] IVR [address] [place] [address] Juan Valencia MD [facility] [facility] [address] [place] [address] Interven Radiology Social History Tobacco Use Types [...] Recorded Patient Health Questionnaire-2 Score 0 11/20/2024 [facility] - Occupational Stress Questionnaire Answer Date Recorded [...] place to sleep or slept in a [place] health care facility (including now)? No 06/04/2024 Housing Stability Vital Sign Answer Obed e Recorded In the last 12 months, was t here a time when you were not able to pay the mortgage or rent on time? Yes 11/23/2024 In the past 12 months, how m any times have you moved where you were living? 0 11/23/2024 At any time in the past 12 m [facility], were you homeless or living in a [place] health care facility (including now)? 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 Callum Guerrero MD Academic Affairs Assistant Vascular & Interventional Radiology 02/20/2025 5:30 AM documented in this encounter Miscellaneous Notes * Clinical References AVS - Richie Alejandro, RN - 02/19/2025 1:22 PM CDT Images from the original note were not included. [id number] Liver Biopsy A liver biopsy is when [...] naproxen. ?? Medicines for heart conditions ?? Tnog-egw-vhuvofi medicines ?? All prescription medicines ?? Illegal [...] belly Last Reviewed Date: 2023 00:00:00 ?? [id number] The [employer]. All rights reserved. This information is not [...] evaluation, please review the evaluation forms in [facility]. For details on monitored clinical parameters during the intra-service sedation time, please review the procedure nurse documentation in [facility]. > Dictated by Seng Gaston MD (Forming Mill Operator) 02/19/2025 12:59 PM Callum Mondragon MD [...] response to care. Intra-service sedation start time [id number] hours and end time was 1236 hours during which I was present. Total physician intra-service sedation time was 30 minutes. For details on pre moderate sedation and post moderate sedation patient evaluation, please review the evaluation forms in [facility]. For details on monitored clinical parameters during the intra-service sedation time, please review the procedure nurse documentation in [facility]. > Dictated by Seng Gaston MD (Forming Mill Operator) 02/19/2025 12:59 PM Callum Mondragon MD have personally reviewed and interpreted this examination/study. > Interpreting Provider: Callum Guerrero MD on 02/24/2025 5:33 PM Juan Valencia MD CT ORDERABLES Final Result * PATHOLOGY TISSUE (02/19/2025 12:34 PM CDT) Case Report Surgical Pathology Report Case: [id number] Authorizing Provider: Juan Valencia MD Collected: 02/19/2025 12:34 PM Ordering Location: [facility] IVR Received: 02/19/2025 01:06 PM Pathologist: Sammi Escalante MD Specimen: Liver Needle Biopsy, liver bx 02/20/2025 3:50 PM CDT [facility] Final Diagnosis Liver, biopsy (A): - Chronic hepatitis with minimal-mild activity - Steatosis and lobular inflammation without ballooning - Cirrhosis, see comment 02/20/2025 3:50 PM CDT [facility] at 1550 CDT Microscopic [...] 8 (steatosis-1, inflammation-1, ballooning-0). 02/20/2025 3:50 PM [facility] Clinical History The patient is a 44-year-old man with history of hepatitis C infection and appearance of cirrhosis on diagnostic imaging. Operative procedure: Ultrasound-guided random core liver biopsy 02/20/2025 3:50 PM [facility] Gross Description The requisition and specimen(s) are identified with the patient's name, Joselito Nguyen. Received in formalin, specimen A, are two baldwin-pink needle cores, 1.7 and 1.0 cm, both 0.1 cm diameter, submitted in toto in cassette A1. IKD 02/20/2025 3:50 PM [facility] Pathologist Location at [facility] 02/20/2025 3:50 PM [facility] Disclaimer The performance characteristics [...] the attending (teaching) pathologist. 02/20/2025 3:50 PM [facility] Collected By Balbir Rdz RN 3:50 PM [facility] Embedded Images 02/20/2025 3:50 PM [facility] Pathology/Cytolo gy NEEDLE BIOPSY OF LIVER / Unknown Collection / Unknown 02/19/2025 12:34 PM CDT 02/19/2025 1:06 PM CDT Comment:LIVER NEEDLE BIOPSY Juan Valencia MD LAB - PATHOLOGY/CYTOLOGY ORDER LISSETH Final Result [facility] [address] [place] [address], [facility] [phone] documented in this encounter Visit Diagnoses Diagnosis [...] documented as of this encounter Care Teams Health And Safety Tech Relationship Specialty Start Date End Date Matthew Sorenson PA [address] [place] [address] PCP - General 02/02/22 Jose Luis Brooks MD [address] [place] [address] Hand Presser/Oncologis t Hematology and Oncology 08/29/24 05/27/25 Abelardo Presley MD [address] [place] [address] Hematology and Oncology 08/29/24 03/04/25 Bo Francisco MD [address] [place] [phone] Hematology and Oncology 08/29/24 03/04/25 Angie Rogers MD [address] [place] [phone] Physician Hematology and Oncology 08/29/24 03/04/25 Katie Gutierrez, PharmD 08/29/24 03/04/25 Jaja Rayo, RN Registered Nurse 08/29/24 03/04/25 Abimbola Waters, DAYNA-PLANER OFFBEARER [address] [place] [phone] Nurse Practitioner Nurse Practitioner 08/29/24 03/04/25 Perri Dexter APRN-DIANNE [address] [place] [address] Nurse Practitioner Nurse Practitioner 08/29/24 03/04/25 Marilyn Bennett, RN Coordinator 08/29/24 05/27/25 Erasmo Roberson, RN Registered Nurse 08/29/24 03/04/25 Alexandra Cota RN Registered Nurse 08/29/24 03/04/25 Alda Braswell 08/29/24 03/04/25 Lucia Sharif, WEBSITE PROJECT MANAGER Callisthenics Instructor 08/29/24 03/04/25 documented as of this encounter
[2025-08-04 08:38] VITALS: BMI 33.8
--- OUTSIDE RECORDS SUMMARY | 2025-08-04 08:42 | XMS_ITS | Clinical Summary ---
Author Organization [facility] Address [address] [address] Phone Care Team Providers Care Roving Hauler Name Role Phone Imanquentin Matthew Bebe RAWLS Primary Care Provider [phone] Allergies Active Allergy Reactions Criticality Noted Date [...] to complete this topic Insurance MEDICAID [employer] [facility] Care Teams Roving Hauler Relationship Specialty Start Date End Date Matthew Sorenson PAC [address] [place] [address] PCP - General Physician Merchandising Execution Manager 04/27/25
--- OUTSIDE RECORDS SUMMARY | 2025-08-04 08:42 | XMS_ITS ---
Author Organization [facility] Address [address] [facility] [place] [address] Care Team Providers Care Shirt Folder Name Role Phone Matthew Sorenson Primary Care Provider [phone] Active Problems Problem Noted Date Diagnosed Date [...]
--- OUTSIDE RECORDS SUMMARY | 2025-08-04 08:42 | XMS_ITS | Clinical Summary ---
Author Organization [facility] Address [address] [place] [address] Care Team Providers Care Franchise Broker Name Role Phone Matthew Sorenson Primary Care Provider [phone] Source Comments [facility],non-owned Affiliates and Associated Physician Practices is amultiple site organization consisting of ambulatory clinics and hospital sitesin [place], [place], [place] and [place]. This disclosure is being madepursuant to the Care Everywhere program and may not contain all information available regarding this patient. Last updated 18.[facility] Allergies Active Allergy Reactions Criticality Noted Date [...] 11 06/28/20 24 Active blood glucose test stripIndication s:Acute post-operative [...] verio strips, Reported on 02/26/2025 Continuous Glucose Qa Auditor (Dexcom G7 Qa Auditor) SONAI as directed Act khari Continuous Glucose Sensor [...] once daily Activ e TRUEplus 5-Bevel [place] 31G X 6 MM MISC USE TO INJECT INSULIN 3 TIMES DAILY 11/20/19 25 Active ondansetron (Zofran) 8 MG tablet Take 1 (one) tablet by mouth every 8 hours as needed Active lenalidomide (Revlimid) 10 MG capsuleIndicati ons:Multiple [...] - 06/15/2025 11:59 PM CDT Hospital Encounter [facility] [address] [place] [address] Robb Wakefield MD Discharge Disposition: Home or Self Care 06/05/2025 Telephone Transitional Care at [address] [address] Rena Solano RN Missed Appointment 06/02/2025 Telephone Transitional Care at [address] [phone] Malu Noyola MA Question 06/01/2025 Telephone Transitional Care at [address] [phone] Rena Solano, electrical accessories assembler 06/01/2025 Travel 05/28/2025 Travel 05/27/2025 11:33 PM CDT - 05/31/2025 9:25 AM CDT Hospital Encounter [facility] [address] [place] [phone] Cristian Garcia MD Kent, Saida A, MD Felgenhauer, Joshua, MD Emergency Medicine Discharge Disposition: Home or Self Care 05/04/2025 Refill [facility] [address] [place] [address] Perri Dexter, DAYNA-DIANNE Refill Request from Last 3 Months Family [...] Recorded Patient Health Questionnaire-2 Score 0 11/20/2024 [facility] [place] of Occupat ional Health - Occupational Stress [...] time in the past 12 m [place], were you homeless or living in a senior living (including now)? 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 Gender Identity Not on file Sexual [...] this topic Medical Devices Implanted Type Area It Support Analyst Device Identifier Shelf Expiration Date Model / Serial / Lot Kit Spnl 5.8mm Spinejack Implanted:Qty: 1 on 07/22/2024 by Arya Rm MD at [facility] N/A: Spine Lumbar Savage Spine 10/28/2024 [id number] / / [id number] Kit Bone Cmnt Vertaplex Hv Autoplex Wo Implanted:Qty: 1 on 07/22/2024 by Arya Rm MD at [facility] N/A: Spine Lumbar Savage Spine 05/29/2025 [id number] / / [id number] Port Implinfn Powerport Clrvu Argd Nya Implanted:Qty: 1 on 08/20/2024 by Vic Callahan MD at [facility] Right: Chest Wall Bard Peripheral Vascular 08/28/2025 [id number] / / [id number] Mixer Bone Cmnt Kyphon C20gm Ll Fit Implanted:Qty: 1 on 12/02/2024 by Arya Rm MD at [facility] N/A: Spine Lumbar Kyphon Inc [id number] / / Cmnt Bone Hv-R Kphx Mxr Grad Mrk Dspns Implanted:Qty: 1 on 12/02/2024 by Arya Rm MD at [facility] N/A: Spine Lumbar Kyphon Inc [id number] / / Graft Bone Grftn Dbm Plif 10x2.5cm Implanted:Qty: 1 on 12/02/2024 by Arya Rm MD at [facility] N/A: Spine Lumbar Osteotech Inc [id number] / / Ezekiel Spnl 500mm 5.5mm Cd Hzn Str Ti Ln Cp Implanted:Qty: 1 on 12/02/2024 by Arya Rm MD at [facility] N/A: Spine Lumbar Medtronic Inc [id number] / / Graft Bone Grftn Dbm Aspt 5x2.5cm Post Implanted:Qty: 1 on 12/02/2024 by Arya Rm MD at [facility] N/A: Spine Lumbar Medtronic Inc [id number] / / Screw Set Ti Spnl Brk Off Cd Hzn Nonster Implanted:Qty: 8 on 12/02/2024 by Arya Rm MD at [facility] N/A: Spine Lumbar Medtronic Inc [id number] / / Screw 7.5mm 55mm Ma Spne Solera Cd Hzn Implanted:Qty: 2 on 12/02/2024 by Arya Rm MD at [facility] N/A: Spine Lumbar Medtronic Inc [id number] / / Screw 7.5mm 50mm Ma Spne Solera Cd Hzn Implanted:Qty: 6 on 12/02/2024 by Arya Rm MD at [facility] Medtronic Inc [id number] / / Slnt Dura Duraseal Pg Trilysine Amine 5 Implanted:Qty: 1 on 12/02/2024 by Arya Rm MD at [facility] N/A: Spine Lumbar Integra Lifesciences Thang [id number] / / Explanted Type Area It Support Analyst Device Identifier Shelf Expiration Date Model / Serial / Lot Kit Osteocool Srg 10ga Bone Acc Explanted:Qty: 2 on 07/22/2024 by Arya Rm MD at [facility] N/A: Spine Lumbar Medtronic Inc [id number] / / [id number] Description:Access device, n ot an implant. No other options in system Probe 17ga 20mm Rf Eltx Osteocool 2mm Explanted:Qty: 1 on 07/22/2024 by Arya Rm MD at [facility] N/A: Spine Lumbar Medtronic Inc 03/26/2027 [id number] / / [id number] Description:Access device, n ot an implant. No [...] DATE/TIME OF EXAM: 06/15/2025 10:11 AM, LOCATION [facility] INDICATION: C90.00: Multiple myeloma, remission status unspecified [...] DATE/TIME OF EXAM: 06/15/2025 10:11 AM, LOCATION [facility] INDICATION: C90.00: Multiple myeloma, remission status unspecified ([facility]) ADDITIONAL CLINICAL INFORMATION: Ordering Provider [...] 41 - 74 % 05/31/2025 8:08 AM [facility] Lymphocyte % 48(H) 17 - 47 % 05/31/2025 8:08 AM [facility] Monocyte % 7 3 - 11 % 05/31/2025 8:08 AM [facility] Basophil % 2 0 - 2 % 05/31/2025 8:08 AM [facility] Neutrophil Absolute 5.38 1.60 - 7.50 x10E9/L 05/31/2025 8:08 AM [facility] Lymphocyte Absolute 6.00(H) 1.00 - 4.40 x10E9/L 05/31/2025 8:08 AM [facility] Monocyte Absolute 0.88 0.15 - 1.00 x10E9/L 05/31/2025 8:08 AM [facility] Basophil Absolute 0.25(H) 0.00 - 0.13 x10E9/L 05/31/2025 8:08 AM [facility] RBC Morphology REVIEWED 05/31/2025 8:08 AM [facility] Large Platelets PRESENT(A) (none) 05/31/2025 8:08 AM [facility] Blood BLOOD SPECIMEN / Unknown Lab Venipuncture / Unknown 05/31/2025 6:56 AM CDT 05/31/2025 7:31 AM CDT us Cristian Garcia MD LAB - HEMATOLOGY ORDERABLES F inal Result [address] [address], [facility] [phone] * (ABNORMAL) CBC W AUTO DIFFERENTIAL (05/31/2025 6:56 AM CDT) Only the most recent of4 resultswithin the time period is included. WBC 12.5(H) 4.0 - 10.7 x10E9/L 05/31/2025 8:08 AM [facility] RBC Count 5.46 4.30 - 5.80 x10E12/L 05/31/2025 8:08 AM [facility] Hemoglobin 15.5 13.3 - 17.5 g/dL 05/31/2025 8:08 AM [facility] Hematocrit 46.6 38.7 - 51.1 % 05/31/2025 8:08 AM [facility] MCV 85.3 80.0 - 98.0 fL 05/31/2025 8:08 AM [facility] MCH 28.4 26.7 - 33.6 pg 05/31/2025 8:08 AM [facility] MCHC 33.3 31.7 - 36.3 g/dL 05/31/2025 8:08 AM [facility] RDW-CV 15.1(H) 11.3 - 14.8 % 05/31/2025 8:08 AM [facility] Platelet Count 216 150 - 420 x10E9/L 05/31/2025 8:08 AM [facility] MPV 11.0 7.8 - 11.4 fL 05/31/2025 8:08 AM [facility] Blood BLOOD SPECIMEN / Unknown Lab Venipuncture / Unknown 05/31/2025 6:56 AM CDT 05/31/2025 7:31 AM CDT us Cristian Garcia MD LAB - HEMATOLOGY ORDERABLES F inal Result [place] [id number] [place] [address], [facility] [phone] * (ABNORMAL) RENAL FUNCTION PANEL (05/31/2025 6:56 AM [facility]) Only the most recent of3 resultswithin the time period is included. BUN 14 7 - 26 mg/dL 05/31/2025 8:02 AM [facility] Creatinine 0.74 0.71 - 1.16 mg/dL 05/31/2025 8:02 AM [facility] Sodium 138 136 - 145 mmol/L 05/31/2025 8:02 AM [facility] Potassium 3.8 3.5 - 4.5 mmol/L 05/31/2025 8:02 AM [facility] Chloride 108(H) 98 - 107 mmol/L 05/31/2025 8:02 AM [facility] CO2 26 22 - 29 mmol/L 05/31/2025 8:02 AM [facility] Glucose 120(H) 70 - 99 mg/dL 05/31/2025 8:02 AM [facility] Albumin 4.0 3.4 - 5.0 g/dL 05/31/2025 8:02 AM [facility] Calcium 8.7 8.4 - 10.2 mg/dL 05/31/2025 8:02 AM [facility] Phosphorus 3.5 2.8 - 5.1 mg/dL 05/31/2025 8:02 AM [facility] Anion Gap 4(L) 6 - 16 05/31/2025 8:02 AM [facility] BUN/Creatinine Ratio 19 7 - 23 05/31/2025 8:02 AM [facility] Osmolality Calculated 288 275 - 295 mOsm/kg 05/31/2025 8:02 AM [facility] eGFR by CKD-EPI >90 >=90 mL/min/1.7 3 m2 05/31/2025 8:02 AM [facility] Comment:Estimated Glomerular Filtration Rate (eGFR) calculated using the CKD-EPI Creatinine Equation (2020), per the National Kidney Foundation and [place] Society of Nephrology recommendations. Blood BLOOD SPECIMEN / Unknown Lab Venipuncture / Unknown 05/31/2025 6:56 AM CDT 05/31/2025 7:31 AM CDT Cristian Garcia MD LAB - CHEMISTRY ORDERABLES Fi nal Result [address] [address], [place] [phone] * MAGNESIUM BLOOD (05/31/2025 6:56 AM CDT) Only the most recent of3 resultswithin the time period is included. Magnesium 1.9 1.6 - 2.6 mg/dL 05/31/2025 8:02 AM CDT [facility] Blood BLOOD SPECIMEN / Unknown Lab Venipuncture / Unknown 05/31/2025 6:56 AM CDT 05/31/2025 7:31 AM CDT Cristian Garcia MD LAB - CHEMISTRY ORDERABLES Fi nal Result Performing Organization Address [facility]/ZIP Co de Phone Number [address] [address], [place] [phone] * GLUCOSE - POINT OF CARE (05/31/2025 6:14 AM CDT) Only the most recent of10 resultswithin the time period is included. Glucose WB/POC 98 70 - 99 mg/dL 05/31/2025 6:18 AM CDT [facility] Specimen Type Arterial/C apillary 05/31/2025 6:18 AM CDT [facility] Blood BLOOD SPECIMEN / Unknown 05/31/2025 6:14 AM CDT 05/31/2025 6:18 AM CDT Robb Wakefield MD LAB - POINT OF CARE ORDERA BLES Final Result Performing Organization Address City/[facility]/ZIP Co de Phone Number [address] [address], [place] [phone] * HEPATITIS C RNA QUANTITATIVE (05/29/2025 7:04 AM CDT) Hepatitis C RNA PCR, Interp Not detected Not detected 06/01/2025 10:14 AM CDT [facility] Hepatitis C Quant by PCR, Log NA log IU/mL 06/01/2025 10:14 AM CDT [facility] Blood BLOOD SPECIMEN / Unknown Lab Venipuncture / Unknown 05/29/2025 7:04 AM CDT 05/29/2025 8:58 AM CDT Narrative [facility] MICROBIOLOGY - 06/01/2025 10:14 AM CDT The Hepatitis C viral (HCV) RNA analysis utilized a serum sample, real-time reverse school superintendent PCR, and is reported as Not Detected, [...] the isolation of HCV RNA with reverse school superintendent of genomic HCV RNA followed by real-time PCR in the presence of an unrelated RNA internal control. The internal control ensures that RNA is isolated, and that no general significant inhibitors of the RT-PCR process are present. The analysis was performed using a U.S. FDA approved test methodology Nahum gomez HCV. us Robb Wakefield MD LAB - CHEMISTRY ORDERABLES Final Result [facility] [address] [place] [address], [facility] [phone] * (ABNORMAL) HEMOGLOBIN A1C (05/29/2025 7:04 AM CDT) Hemoglobin A1c 6.1(H) <=5.6 % 05/29/2025 11:58 AM CDT [facility] Estimated Average Glucose 128 mg/dL 05/29/2025 11:58 AM CDT [facility] Comment: HbA1c Interpretation: Normal : < 5.7% Pre-diabetes: 5.7-6.4% Diabetes: Equal to or greater than 6.5% Test results diagnostic of diabetes should be repeated for confirmation. Treatment target values recommended by ADA and other clinical organizations should be used to evaluate metabolic control in patients. Reference: [place] Diabetes Association, Standards of Care in Diabetes [...] ORDERABLES Fi nal Result Performing Organization Address City/[facility]/ZIP Co de Phone Number [address] [address], [facility] [phone] * (ABNORMAL) C-REACTIVE PROTEIN (05/28/2025 1:59 PM CDT) C-Reactive Protein 0.6(H) <=0.5 mg/dL 05/28/2025 2:38 PM CDT [facility] Blood BLOOD SPECIMEN / Unknown Venipuncture / Unknown 05/28/2025 1:59 PM CDT 05/28/2025 2:10 PM CDT us Robb Wkaefield MD LAB - CHEMISTRY ORDERABLES Final Result [address] [address], [facility] [phone] * ERYTHROCYTE SEDIMENTATION RATE (05/28/2025 1:59 PM CDT) Erythrocyte Sedimentation Rate Westergren 8 0 - 15 MM/HR 05/28/2025 2:32 PM CDT [facility] Blood BLOOD SPECIMEN / Unknown Venipuncture / Unknown 05/28/2025 1:59 PM CDT 05/28/2025 2:10 PM CDT us Robb Wakefield MD LAB - HEMATOLOGY ORDERABLE S Final Result [facility] [address] [place] [address], [facility] [phone] * CT Lumbar Spine Wo Contrast (05/28/2025 [...] correlation for possible infection. > Dictated by Set Up Worker I, Natan Modi MD have personally reviewed and interpreted this examination/study. > Interpreting Provider: Natan Modi MD on 05/28/2025 10:09 AM Narrative 05/28/2025 10:09 AM CDT PROCEDURE: CT THORACIC SPINE WO CONTRAST, CT LUMBAR SPINE WO CONTRAST, DATE/TIME OF EXAM: 05/28/2025 3:39 AM, LOCATION [facility] INDICATION: M54.6: Acute midline thoracic back pain [...] DATE/TIME OF EXAM: 05/28/2025 3:39 AM, LOCATION [facility] INDICATION: M54.6: Acute midline thoracic back pain [...] L3 on L4. Redemonstration of a chronic H3nqztjckkd body fracture status post kyphoplasty. An irregular lytic lesion and the sclerotic changes with cortical enlargement are noted in the W6ykkjptebm body. No acute fracture identified. Mild to [...] correlation for possible infection. > Dictated by Set Up Worker I, Natan Modi MD have personally reviewed [...] correlation for possible infection. > Dictated by Set Up Worker I, Natan Modi MD have personally reviewed and interpreted this examination/study. > Interpreting Provider: Natan Modi MD on 05/28/2025 10:09 AM Narrative 05/28/2025 10:09 AM CDT PROCEDURE: CT THORACIC SPINE WO CONTRAST, CT LUMBAR SPINE WO CONTRAST, DATE/TIME OF EXAM: 05/28/2025 3:39 AM, LOCATION [facility] INDICATION: M54.6: Acute midline thoracic back pain [...] DATE/TIME OF EXAM: 05/28/2025 3:39 AM, LOCATION [facility] INDICATION: M54.6: Acute midline thoracic back pain [...] L3 on L4. Redemonstration of a chronic P4izyhjxnop body fracture status post kyphoplasty. An irregular lytic lesion and the sclerotic changes with cortical enlargement are noted in the U7fjhpdmcgt body. No acute fracture identified. Mild to [...] correlation for possible infection. > Dictated by Set Up Worker I, Natan Modi MD have personally reviewed and interpreted this examination/study. > Interpreting Provider: Natan Modi MD on 05/28/2025 10:09 AM Cristian Garcia MD CT ORDERABLES Final Result * TYPE + SCREEN PANEL (05/28/2025 1:26 AM CDT) [facility] Antibody Screen NEG 2:26 AM CDT [facility] ABO Rh O POS 05/28/2025 2:26 AM CDT [facility] Blood Bank BLOOD SPECIMEN / Unknown Venipuncture / Unknown 05/28/2025 1:26 AM CDT 05/28/2025 1:46 AM CDT Cristian Garcia MD LAB - BLOOD BANK ORDERABLES F inal Result [facility] [address] [place] [address], [place] [phone] * (ABNORMAL) COMPREHENSIVE METABOLIC PANEL (05/28/2025 1:26 AM CDT) [facility] BUN 14 7 - mg/dL 05/28/2025 2:10 AM [facility] Creatinine 0.86 0.71 - 1.16 mg/dL 05/28/2025 2:10 AM [facility] Sodium 140 136 - 145 mmol/L 05/28/2025 2:10 AM [facility] Potassium 3.9 3.5 - 4.5 mmol/L 05/28/2025 2:10 AM [facility] Chloride 110(H) 98 - 107 mmol/L 05/28/2025 2:10 AM [facility] CO2 24 22 - 29 mmol/L 05/28/2025 2:10 AM [facility] Glucose 107(H) 70 - 99 mg/dL 05/28/2025 2:10 AM [facility] Calcium 8.9 8.4 - 10.2 mg/dL 05/28/2025 2:10 AM [facility] Protein Total 6.3 6.0 - 8.3 g/dL 05/28/2025 2:10 AM [facility] Albumin 4.3 3.4 - 5.0 g/dL 05/28/2025 2:10 AM [facility] Bilirubin Total 0.3 0.2 - 1.2 mg/dL 05/28/2025 2:10 AM [facility] Alkaline Phosphatase 129 40 - 150 U/L 05/28/2025 2:10 AM [facility] ALT 23 5 - 55 U/L 05/28/2025 2:10 AM [facility] AST 25 5 - 34 U/L 05/28/2025 2:10 AM [facility] Anion Gap 6 6 - 16 05/28/2025 2:10 AM [facility] BUN/Creatinine Ratio 16 7 - 23 05/28/2025 2:10 AM [facility] Osmolality Calculated 291 275 - 295 mOsm/kg 05/28/2025 2:10 AM [facility] Albumin/Globulin Ratio 2.2 1.1 - 2.3 05/28/2025 2:10 AM [facility] eGFR by CKD-EPI >90 >=90 mL/min/1.7 3 m2 05/28/2025 2:10 AM CDT [facility] Comment:Estimated Glomerular Filtration Rate (eGFR) calculated using the CKD-EPI Creatinine Equation (2020), per the National Kidney Foundation and [place] Society of Nephrology recommendations. Blood BLOOD SPECIMEN / Unknown Venipuncture / Unknown 05/28/2025 1:26 AM CDT 05/28/2025 1:39 AM CDT us Cristian Garcia MD LAB - CHEMISTRY ORDERABLES Fi nal Result [facility] [address] [place] [address], [place] [phone] * MICROALB/CREAT RATIO URINE RANDOM PANEL (06/28/2024 6:31 AM CDT) Albumin Random Urine <5.0 Not Established ug/mL 06/28/2024 9:49 PM CDT [facility] Creatinine Urine 82.62 Not Established mg/dL 06/28/2024 9:49 PM T [facility] Urine Albumin/Creati nine Ratio <6 <30 mg/g 06/28/2024 9:49 PM CDT [facility] Albumin/Creati nine Ratio Urine See Comment <30 mg/g 06/28/2024 9:49 PM T [facility] Comment:Unable to calculate the Urine Albumin/Creatinine Ratio due to one or more analyte concentration(s) being outside the measuring limits of the instrument. Urine URINE SPECIMEN OBTAINED BY CLEAN CATCH PROCEDURE / Unknown Collection / Unknown 06/28/2024 6:31 AM CDT 06/28/2024 7:54 PM CDT us Robb Gomez MD LAB - URINE CHEMISTRY ORDERA BLES Final Result [facility] [address] [place] [address], [place] [phone] * HIV-1 HIV-2 ANTIBODY + HIV P24 AG PANEL (06/06/2024 11:59 AM CDT) HIV Antigen/Antibod y 1 & 2 Non-reacti ve Non-react khari 06/06/2024 12:58 PM CDT [facility] Comment:No Laboratory eviden ce of HIV infection. 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
--- OUTSIDE RECORDS SUMMARY | 2025-08-04 08:42 | XMS_ITS | Encounter Summary ---
Author Organization [facility] Address [address] [place] [address] Care Team Providers Care Nail Artist Name Role Phone Matthew Sorenson Primary Care Provider [phone] Jose Luis Brooks MD Unavailable [phone] Abelardo Presley MD Unavailable [phone] Bo Francisco MD Unavailable [phone] Angie Rogers MD Unavailable Katie GutierrezD Unavailable Unavaila Jaja Casillas RN Unavailable Unavailable Abimbola Waters PONDMAN-FORMULATOR Unavailable Perri Dexter PONDMAN-FORMULATOR Unavailable [phone] Marilyn Bennett RN Unavailable Unavailable Erasmo Roberson RN Unavailable Unavailable Alexandra Cota RN Unavailable Unavailable Alda Braswell Unavailable Unavailable Lucia Sharif LCSW Unavailable Unavailab le Reason for Visit * Reason Onset Date Comments MEDICATION REFILL 10/20/2024 Encounter Details Date Type Department Care Team (Late st Contact Info) Description 10/20/2024 Refill [facility] - Hematology/Oncology [address] [place] [address] Jose Luis Brooks MD [address] [facility] [place] [address] MEDICATION REFILL Social History Tobacco Use Types Packs/Day Years Used Date Smoking Tobacco: Every Day Cigarettes 1.5 34 Started: 08/20/1991 Smokeless Tobacco: Never Alcohol Use [...] Recorded Patient Health Questionnaire-2 Score 1 08/12/2024 [facility] - Occupational [...] any time in the past 12 m [facility], were you homeless or living in a detention (including now)? 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 Gender Identity Not on file Sexual Orientation [...] documented as of this encounter Care Teams Nail Artist Relationship Specialty Start Date End Date Matthew Sorenson PA [address] [place] [address] PCP - General 02/02/22 Jose Luis Brooks MD [facility] [place] [address] Replanting Machine Crew/Oncologis t Hematology and Oncology 08/29/24 05/27/25 Abelardo Presley MD [facility] [place] [address] Hematology and Oncology 08/29/24 03/04/25 Bo Francisco MD [address] [place] [phone] Hematology and Oncology 08/29/24 03/04/25 Angie Rogers MD [address] [place] [phone] Physician Hematology and Oncology 08/29/24 03/04/25 Katie Gutierrez, PharmD 08/29/24 03/04/25 Jaja Rayo RN Registered Nurse 08/29/24 03/04/25 Abimbola Waters APRN-CNP [facility] [place] [address] Nurse Practitioner Nurse Practitioner 08/29/24 03/04/25 Perri Dexter APRN-CNP [address] [place] [phone] Nurse Practitioner Nurse Practitioner 08/29/24 03/04/25 Marilyn Bennett, LOLI Coordinator 08/29/24 05/27/25 Erasmo Roberson, RN Registered Nurse 08/29/24 03/04/25 Alexandra Cota, RN Registered Nurse 08/29/24 03/04/25 Alda Braswell 08/29/24 03/04/25 Lucia Sharif, FLORAL DEPARTMENT SPECIALIST Third Rigger 08/29/24 03/04/25 documented as of this encounter
--- OUTSIDE RECORDS SUMMARY | 2025-08-04 08:42 | XMS_ITS | Encounter Summary ---
Author Organization [facility] Address [address] [place] [address] Care Team Providers Care Staff Pharmacist Hospital Name Role Phone Matthew Sorenson Primary Care Provider [phone] Jose Luis Brooks MD Unavailable [phone] Abelardo Presley MD Unavailable [phone] Bo Francisco MD Unavailable [phone] Angie Rogers MD Unavailable Katie GutierrezD Unavailable Unavaila Jaja Casillas RN Unavailable Unavailable Abimbola Waters SANDFILL OPERATOR-MOBILE GAME ENGINEER Unavailable [phone] Perri Dexter SANDFILL OPERATOR-MOBILE GAME ENGINEER Unavailable [phone] Marilyn Bennett RN Unavailable Unavailable Erasmo Roberson RN Unavailable Unavailable Alexandra Cota RN Unavailable Unavailable Alda Braswell Unavailable Unavailable Lucia Sharif LCSW Unavailable Unavailab le Reason for Visit * Reason Onset Date Comments MEDICATION REFILL 10/20/2024 Encounter Details Date Type Department Care Team (Late st Contact Info) Description 10/20/2024 Refill [facility] [address] [place] [address] Gina Denton MD [address] [place] [address] MEDICATION REFILL Social History Tobacco [...] Recorded Patient Health Questionnaire-2 Score 1 08/12/2024 [facility] - Occupational [...] place to sleep or slept in a mcfp (including now)? No 06/04/2024 Housing Stability Vital Sign Answer Obed e Recorded In the last 12 months, was t here a time when you were not able to pay the mortgage or rent on time? Yes 10/24/2024 In the past 12 months, how m any times have you moved where you were living? 0 10/24/2024 At any time in the past 12 m [facility], were you homeless or living in a mcfp (including now)? 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 Gender Identity Not on file Sexual Orientation [...] documented as of this encounter Care Teams Staff Pharmacist Hospital Relationship Specialty Start Date End Date Matthew Sorenson PA [address] [place] [address] PCP - General 02/02/22 Jose Luis Brooks MD [address] [place] [address] Binding Folder Machine/Oncologis t Hematology and Oncology 08/29/24 05/27/25 Abelardo Presley MD [address] [place] [address] Hematology and Oncology 08/29/24 03/04/25 [place] [address] [place] [phone] Hematology and Oncology 08/29/24 03/04/25 [place] [address] [place] [phone] Physician Hematology and Oncology 08/29/24 03/04/25 Katie Gutierrez, PharmD 08/29/24 03/04/25 Jaja Rayo RN Registered Nurse 08/29/24 03/04/25 Abimbola Waters APRN-CNP [address] [place] [phone] Nurse Practitioner Nurse Practitioner 08/29/24 03/04/25 Perri Dexter APRN-CNP [address] [place] [phone] Nurse Practitioner Nurse Practitioner 08/29/24 03/04/25 Marilyn Bennett, RN Coordinator 08/29/24 05/27/25 Erasmo Roberson, RN Registered Nurse 08/29/24 03/04/25 Alexandra Cota, RN Registered Nurse 08/29/24 03/04/25 Alda Braswell 08/29/24 03/04/25 Lucia Sharif, APPLICATION INFRASTRUCTURE ENGINEER Sleever 08/29/24 03/04/25 documented as of this encounter
--- OUTSIDE RECORDS SUMMARY | 2025-08-04 08:42 | XMS_ITS | Clinical Summary ---
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
[2025-08-04 08:46] VITALS: BP 117/74; PULSE 68; RESP 14; TEMP 36.6; O2SAT 98
[2025-08-04 08:47] LABS: Hematocrit 45.5 % (40.0-54.0); Hemoglobin 14.9 g/dL (14.0-18.0); Immature Platelet Fraction Pct 3.7 % (1.0-7.0); Mean Corpuscular HGB Conc 32.7 g/dL (32-36); Mean Corpuscular Hemoglobin 28.6 pg (27.0-31.0); Mean Corpuscular Volume 87.3 fL (78.0-102.0); Platelet Count Result 138 K/mm3 (150-420); Red Blood Count 5.21 M/mm3 (4.70-6.10); White Blood Count 5.1 K/mm3 (4.8-10.8)
[2025-08-04 09:01] LABS: Alanine Aminotransferase 28 U/L (6-50); Albumin Level 3.9 g/dL (3.5-5.1); Alkaline Phosphatase 86 U/L (38-126); Anion Gap 8 mmol/L (4-12); Aspartate Amino Transferase 22 U/L (17-59); Bilirubin,Total 0.5 mg/dL (0.2-1.3); Blood Urea Nitrogen 16 mg/dL (9-20); Calcium 8.7 mg/dL (8.4-10.2); Carbon Dioxide 22 mmol/L (22-30); Chloride 109 mmol/L (98-107); Estimated CRCL calculation 109 ml/min; Estimated Glomerular Filt Rate > 60; Glucose 187 mg/dL (65-110); Osmolality Calculated 294 mOsm/kg (285-295); Potassium 4.1 mmol/L (3.4-5.0); Sodium 139 mmol/L (137-145); Total Protein 6.2 g/dL (6.3-8.2)
[2025-08-04] MEDS: ACETAMINOPHEN 325 MG TABLET 650 MG PO (09:20)
[2025-08-04] MEDS: diphenhydrAMINE HCl CAP 25 MG CAPSULE PO (09:20)
[2025-08-04] MEDS: FAMOTIDINE 20 MG TABLET PO (09:20)
[2025-08-04] MEDS: DARATUMUMAB-HYALURONIDASE-FIHJ 1,800 MG-30,000 UNITS VIAL 15 ML SUB-Q (09:46)
[2025-08-04] MEDS: DENOSUMAB 120 MG/1.7 ML VIAL SUB-Q (09:46)
[2025-08-04 10:15] VITALS: BP 129/76; PULSE 68; RESP 14; O2SAT 97
--- NOTE | 2025-08-04 10:27 | PC.NURSE ---
Patient tolerated daratumumab with hyaluronidase and Xgeva injection treatments well. SEE MAR/patient care notes.
== END 2025-08-04 08:27 | disposition home or self-care (01) ==
LOC: CHSLAB 08:32 → CHSTREATRM 08:34
PROVIDERS: PCP Physician Assistant; Visit Provider Internal Medicine Hematology
DX: Z51.11 Encounter for antineoplastic chemotherapy (principal); C90.00 Multiple myeloma not having achieved remission
CPT/HCPCS: 36415; 80053; 85027; 85055; 96372; 96401; A9270; J0897; J8540; J9144

== ENCOUNTER 2025-08-18 08:30 | Outpatient (CLI) | payer OTHER, SELFPAY ==
--- OUTSIDE RECORDS SUMMARY | 2025-02-19 11:37 | XMS_ITS | Encounter Summary ---
Author Organization [facility] Address [address] [place] [address] Care Team Providers Care Mechanic Helper Name Role Phone Matthew Sorenson Primary Care Provider [phone] Jose Luis Brooks MD Unavailable [phone] Abelardo Presley MD Unavailable [phone] Bo Francisco MD Unavailable [phone] Angie Rogers MD Unavailable Katie GutierrezD Unavailable Unavaila Jaja Casillas RN Unavailable Unavailable Abimbola Waters CHEMICAL ETCH OPERATOR-OIL PAINTER Unavailable [phone] Perri Dexter CHEMICAL ETCH OPERATOR-OIL PAINTER Unavailable [phone] Marilyn Bennett RN Unavailable Unavailable Erasmo Roberson RN Unavailable Unavailable Alexandra Cota RN Unavailable Unavailable Alda Braswell Unavailable Unavailable Lucia Sharif LCSW Unavailable Unavailab le Reason for Referral * (Routine) - Pending Review Specialty Diagnoses / Procedures Referred By Contac t Referred To Contact Procedures Follow up with provider Juan Valencia MD [address] [place] [address] Phone: tel: fax: Referral ID Status Reason Start Date Expiration Date V isits Requested Visits Authorized [id number] Pending Review 02/19/2025 02/19/2026 1 1 * Radiology Services (Routine) - Pending Review Specialty Diagnoses / Procedures Referred By Vikash winters Referred To Contact Diagnoses Hepatitis C virus infection without hepatic coma, unspecified chronicity History of multiple myeloma Procedures CT US Guided Needle Placement IR Perc Liver Biopsy Juan Valencia MD [address] [facility] [address] [place] [address] Phone: tel: fax: [facility] [address] [place] [address] Phone: tel: Referral ID Status Reason Start Date Expiration Date V isits Requested Visits Authorized [id number] Pending Review 02/19/2025 02/19/2026 1 1 Reason for Visit * Auth/Cert (Routine) Specialty Diagnoses / Procedures Referred By Vikash winters Referred To Contact Diagnoses Chronic hepatitis C without hepatic coma (HCC) Transaminitis Chronic hepatitis C without hepatic coma (HCC) [B18.2] Transaminitis [R74.01] Procedures [place] US GUIDED NEEDLE PLACEMENT BIOPSY LIVER (NEEDLE/PERCUTANEOUS) Referral ID Status Reason Start Date Expiration Date Visits Re quested Visits Authorized [id number] 1 1 Encounter Details Date Type Department Care Team (Latest Contact Info) Description 02/19/2025 11:37 AM CDT [facility] [address] [place] [address] Juan Valencia MD [address] [facility] [address] [place] [address] Interven Radiology Social History Tobacco Use Types [...] Recorded Patient Health Questionnaire-2 Score 0 11/20/2024 [facility] Occupat ional Health - [...] place to sleep or slept in a detention (including now)? No 06/04/2024 Housing Stability Vital Sign Answer Obed e Recorded In the last 12 months, was t here a time when you were not able to pay the mortgage or rent on time? Yes 11/23/2024 In the past 12 months, how m any times have you moved where you were living? 0 11/23/2024 At any time in the past 12 m [facility], were you homeless or living in a detention (including now)? No 11/23/2024 Sex and Gender Information Value Date Recorded Sex Assigned at Not on file Legal Sex Male 11:44 AM PHYSICIAN ADVISOR Gender Identity Not on file Sexual Orientation [...] changes are noted. Recent Labs Component Name 02/12/255 02/02/25 0916 01/13/25 1124 WBC 11.6* 8.9 [...] Interventional Radiology Brief Post-Procedure Note Patient: Joselito Lucian Nguyen Attending: Callum Guerrero MD Manager Property: Seng Gaston MD Diagnosis/Indication: hx of hep [...] for the entire procedure. Callum Guerrero MD Marriage Counselor Minister Vascular & Interventional Radiology 02/20/2025 5:30 AM documented in this encounter Miscellaneous Notes * Clinical References AVS - Richie Alejandro RN - 02/19/2025 1:22 PM CDT Images from the original note were not included. [id number] Liver Biopsy A liver biopsy is when [...] naproxen. ?? Medicines for heart conditions ?? Pwem-bhk-jqmehqt medicines ?? All prescription medicines ?? Illegal [...] belly Last Reviewed Date: 2023 00:00:00 ?? [id number] The [employer]. All rights reserved. This information is not intended as a substitute for professional medical care. Always follow your healthcare professional's instructions. documented in this encounter Plan of Treatment Upcoming Encounters Date Type Department Care Team (Late st Contact Info) Description 08/18/2025 1:00 PM CDT Office Visit [facility] - Neurology [address] [place] [address], [facility], [facility] [place] [phone] Mary Vargas APRN-OIL PAINTER [address] [place] [phone] documented as of this encounter Procedures Procedure [...] evaluation, please review the evaluation forms in [employer]. For details on monitored clinical parameters during the intra-service sedation time, please review the procedure nurse documentation in [facility]. > Dictated by Seng Gaston MD (American History Teacher) 02/19/2025 12:59 PM Callum Mondragon MD have [...] response to care. Intra-service sedation start time [id number] hours and end time was 1236 hours during which I was present. Total physician intra-service sedation time was 30 minutes. For details on pre moderate sedation and post moderate sedation patient evaluation, please review the evaluation forms in [facility]. For details on monitored clinical parameters during the intra-service sedation time, please review the procedure nurse documentation in [facility]. > Dictated by Seng Gaston MD (American History Teacher) 02/19/2025 12:59 PM Callum Mondragon MD have personally reviewed and interpreted this examination/study. > Interpreting Provider: Callum Guerrero MD on 02/24/2025 5:33 PM Juan Valencia MD CT ORDERABLES Final Result * PATHOLOGY TISSUE (02/19/2025 12:34 PM CDT) Case Report Surgical Pathology Report Case: [id number] Authorizing Provider: Juan Valencia MD Collected: 02/19/2025 12:34 PM [facility] Received: 02/19/2025 01:06 PM Pathologist: Sammi Escalante MD Specimen: Liver Needle Biopsy, liver bx 02/20/2025 3:50 PM CDT [facility] Final Diagnosis Liver, biopsy (A): - Chronic hepatitis with minimal-mild activity - Steatosis and lobular inflammation without ballooning - Cirrhosis, see comment 02/20/2025 3:50 PM CDT [facility] at 1550 CDT Microscopic [...] 8 (steatosis-1, inflammation-1, ballooning-0). 02/20/2025 3:50 PM CDT [facility] Clinical History The patient is a 44-year-old man with history of hepatitis C infection and appearance of cirrhosis on diagnostic imaging. Operative procedure: Ultrasound-guided random core liver biopsy 02/20/2025 3:50 PM T [facility] Gross Description The requisition and specimen(s) are identified with the patient's name, Joselito Nguyen. Received in formalin, specimen A, are two baldwin-pink needle cores, 1.7 and 1.0 cm, both 0.1 cm diameter, submitted in toto in cassette A1. IKD 02/20/2025 3:50 PM CDT [facility] Pathologist Location at [facility] 02/20/2025 3:50 PM CDT [facility] Disclaimer The performance characteristics of all immunohistochemical and indirect immunofluorescence stains (if any) cited in this report were determined by the Histopathology Laboratory of [facility]. Some of these tests were developed [...] attending (teaching) pathologist. 02/20/2025 3:50 PM CDT [facility] Collected By Balbir Rdz RN 3:50 PM CDT [facility] Embedded Images 02/20/2025 3:50 PM CDT [facility] Pathology/Cytolo gy NEEDLE BIOPSY OF LIVER / Unknown Collection / Unknown 02/19/2025 12:34 PM CDT 02/19/2025 1:06 PM CDT Comment:LIVER NEEDLE BIOPSY Juan Valencia MD LAB - PATHOLOGY/CYTOLOGY ORDER LISSETH Final Result [facility] [address] [place], [place] [address] [place] [address] documented in this encounter Visit Diagnoses Diagnosis [...] documented as of this encounter Care Teams Mechanic Helper Relationship Specialty Start Date End Date Matthew Sorenson PA [address] [place] [address] PCP - General 02/02/22 Jose Luis Brooks MD [address] [place] [address] Research Methodologist/Oncologis t Hematology and Oncology 08/29/24 05/27/25 Abelardo Presley MD [address] [place] [address] Hematology and Oncology 08/29/24 03/04/25 Bo Francisco MD [address] [place] [phone] Hematology and Oncology 08/29/24 03/04/25 Angie Rogers MD [address] [place] [phone] Physician Hematology and Oncology 08/29/24 03/04/25 Katie Gutierrez, PharmD 08/29/24 03/04/25 Jaja Rayo RN Registered Nurse 08/29/24 03/04/25 Abimbola Waters APRN-CNP [facility] [place] [phone] Nurse Practitioner Nurse Practitioner 08/29/24 03/04/25 Perri Dexter APRN-CNP [address] [place] [phone] Nurse Practitioner Nurse Practitioner 08/29/24 03/04/25 Marilyn Bennett, LOLI Coordinator 08/29/24 05/27/25 Erasmo Roberson, RN Registered Nurse 08/29/24 03/04/25 Alexandra Cota, RN Registered Nurse 08/29/24 03/04/25 Alda Braswell 08/29/24 03/04/25 Lucia Sharif, DONOR SPECIALIST Photographic Specialist 08/29/24 03/04/25 documented as of this encounter
[2025-08-18 08:49] LABS: Hematocrit 47.4 % (40.0-54.0); Hemoglobin 16.0 g/dL (14.0-18.0); Mean Corpuscular HGB Conc 33.8 g/dL (32-36); Mean Corpuscular Hemoglobin 29.2 pg (27.0-31.0); Mean Corpuscular Volume 86.5 fL (78.0-102.0); Platelet Count Result 251 K/mm3 (150-420); Red Blood Count 5.48 M/mm3 (4.70-6.10); White Blood Count 8.8 K/mm3 (4.8-10.8)
--- OUTSIDE RECORDS SUMMARY | 2025-08-18 08:57 | XMS_ITS | Clinical Summary ---
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
--- OUTSIDE RECORDS SUMMARY | 2025-08-18 08:57 | XMS_ITS | Encounter Summary ---
Author Organization [facility] Address [address] [place] [address] Care Team Providers Care Research Test Engine Evaluator Name Role Phone Matthew Sorenson Primary Care Provider [phone] Jose Luis Brooks MD Unavailable [phone] Abelardo Presley MD Unavailable [phone] Bo Francisco MD Unavailable [phone] Angie Rogers MD Unavailable Katie GutierrezD Unavailable Unavaila Jaja Casillas RN Unavailable Unavailable Abimbola Waters METALIZING SUPERVISOR-MACHINE PRINTER Unavailable [phone] Perri Dexter METALIZING SUPERVISOR-MACHINE PRINTER Unavailable [phone] Marilyn Bennett RN Unavailable Unavailable Erasmo Roberson RN Unavailable Unavailable Alexandra Cota RN Unavailable Unavailable Alda Braswell Unavailable Unavailable Lucia Sharif LCSW Unavailable Unavailab le Reason for Visit * Reason Onset Date Comments MEDICATION REFILL 10/20/2024 Encounter Details Date Type Department Care Team (Late st Contact Info) Description 10/20/2024 Refill [facility] - Hematology/Oncology [address] [place] [address] Jose Luis Brooks MD [address] [facility] [place] [address] MEDICATION REFILL Social History Tobacco [...] Recorded Patient Health Questionnaire-2 Score 1 08/12/2024 [facility] [...] on file 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 Gender Identity Not on file Sexual [...] of Assessment Author No 09/05/2024 9:00 AM Ruhty Sam RN * Does person have difficulty [...] Description 08/18/2025 1:00 PM CDT Office Visit [facility] - Neurology [address] [facility], [facility] [place] [address] Mary Vargas APRN-MACHINE PRINTER [address] [place] [phone] documented as of this encounter Visit Diagnoses Not on filedocumented in this encounter Additional Health Concerns Infection Onset Date Last Indicated Resolved Time 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 CDIFF Under Investigation 01/13/2025 01/13/2025 7:19 PM CDT COVID-19 Under Investigation 01/13/2025 01/13/2025 01/13/2025 4:01 PM CDT COVID-19 Under Investigation 02/12/2025 02/12/2025 02/12/2025 4:07 PM CDT documented as of this encounter Care Teams Research Test Engine Evaluator Relationship Specialty Start Date End Date Matthew Sorenson PA [address] [place] [address] PCP - General 02/02/22 Jose Luis Brooks MD [address] [place] [address] Tooth Clerk/Oncologis t Hematology and Oncology 08/29/24 05/27/25 Abelardo Presley MD [address] [place] [address] Hematology and Oncology 08/29/24 03/04/25 Bo Francisco MD [address] [place] [phone] Hematology and Oncology 08/29/24 03/04/25 Angie Rogers MD [address] [place] [phone] Physician Hematology and Oncology 08/29/24 03/04/25 Katie Gutierrez, PharmD 08/29/24 03/04/25 Jaja Rayo, RN Registered Nurse 08/29/24 03/04/25 Abimbola Waters, METALIZING SUPERVISOR-MACHINE PRINTER [address] [place] [phone] Nurse Practitioner Nurse Practitioner 08/29/24 03/04/25 Perri Dexter APRN-DIANNE [address] [place] [phone] Nurse Practitioner Nurse Practitioner 08/29/24 03/04/25 Marilyn Bennett, RN Coordinator 08/29/24 05/27/25 Erasmo Roberson, RN Registered Nurse 08/29/24 03/04/25 Alexandra Cota, RN Registered Nurse 08/29/24 03/04/25 Alda Braswell 08/29/24 03/04/25 Lucia Sharif, DEPUTY TREASURER Graduate Engineer 08/29/24 03/04/25 documented as of this encounter
--- OUTSIDE RECORDS SUMMARY | 2025-08-18 08:58 | XMS_ITS ---
Author Organization [facility] Address [address] [place] [address] Care Team Providers Care Want Ad Receiver Name Role Phone Matthew Sorenson Primary Care Provider [phone] Active Problems Problem Noted Date Diagnosed Date [...]
--- OUTSIDE RECORDS SUMMARY | 2025-08-18 08:58 | XMS_ITS | Encounter Summary ---
Author Organization [facility] Address [address] [place] [address] Care Team Providers Care Sample Washer Name Role Phone Matthew Sorenson Primary Care Provider [phone] Jose Luis Brooks MD Unavailable [phone] Abelardo Presley MD Unavailable [phone] Bo Francisco MD Unavailable [phone] Angie Rogers MD Unavailable Katie GutierrezD Unavailable Unavaila Jaja Casillas RN Unavailable Unavailable Abimbola Waters CISCO UNIFIED COMMUNICATIONS ENGINEER-LAB DIRECTOR Unavailable Perri Dexter CISCO UNIFIED COMMUNICATIONS ENGINEER-LAB DIRECTOR Unavailable [phone] Marilyn Bennett RN Unavailable Unavailable Erasmo Roberson RN Unavailable Unavailable Alexandra Cota RN Unavailable Unavailable Alda Braswell Unavailable Unavailable Lucia Sharif LCSW Unavailable Unavailab le Reason for Visit * Reason Onset Date Comments MEDICATION REFILL 10/20/2024 Encounter Details Date Type Department Care Team (Late st Contact Info) Description 10/20/2024 Refill [facility] [address] [place] [address] Gina Denton MD [address] [place] [address] MEDICATION REFILL Social History Tobacco Use Types [...] Recorded Patient Health Questionnaire-2 Score 1 08/12/2024 [facility] [...] any time in the past 12 m [facility], were you homeless or living in a mcfp (including now)? 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 CDIFF Under Investigation 01/13/2025 01/13/2025 7:19 PM CDT COVID-19 Under Investigation 01/13/2025 01/13/2025 01/13/2025 4:01 PM CDT COVID-19 Under Investigation 02/12/2025 02/12/2025 02/12/2025 4:07 PM CDT documented as of this encounter Care Teams Sample Washer Relationship Specialty Start Date End Date Matthew Sorenson PA [address] [place] [address] PCP - General 02/02/22 Jose Luis Brooks MD [address] [place] [address] Conference Interpreter/Oncologis t Hematology and Oncology 08/29/24 05/27/25 Abelardo Presley MD [address] [place] [address] Hematology and Oncology 08/29/24 03/04/25 Bo Francisco MD [address] [place] [phone] Hematology and Oncology 08/29/24 03/04/25 Angie Rogers MD [address] [place] [phone] Physician Hematology and Oncology 08/29/24 03/04/25 Katie Gutierrez, PharmD 08/29/24 03/04/25 Jaja Rayo, RN Registered Nurse 08/29/24 03/04/25 Abimbola Waters, CISCO UNIFIED COMMUNICATIONS ENGINEER-LAB DIRECTOR [address] [place] [phone] Nurse Practitioner Nurse Practitioner 08/29/24 03/04/25 Perri Dexter APRN-LAB DIRECTOR [address] [place] [phone] Nurse Practitioner Nurse Practitioner 08/29/24 03/04/25 Marilyn Bennett, RN Coordinator 08/29/24 05/27/25 Erasmo Roberson, RN Registered Nurse 08/29/24 03/04/25 Alexandra Cota, RN Registered Nurse 08/29/24 03/04/25 Alda Braswell 08/29/24 03/04/25 Lucia Sharif, MOTORCYCLE DELIVERY DRIVER Ssds Mk 2 Advanced Operator 08/29/24 03/04/25 documented as of this encounter
--- OUTSIDE RECORDS SUMMARY | 2025-08-18 08:58 | XMS_ITS | Clinical Summary ---
Author Organization [facility] Address [address] [address] Phone Care Team Providers Care Aircraft Charter Dispatcher Name Role Phone Matthew Sorenson Primary Care Provider [phone] Allergies Active Allergy Reactions Criticality Noted Date Comments Morphine Itching 06/01/2025 Encounters Date Type Department Care Team Description [...] Immunization (#1) 2025 SARS-COV-2 Immunization ( - 2023- season) 2025 Respiratory Syncytial Virus (RSV) Immunization [...] Insurance MEDICAID [employer] Care Teams Aircraft Charter Dispatcher Relationship Specialty Start Date End Date Matthew Sorenson PAC [address] [place] [address] PCP - General Physician Air Valve Repairer 04/27/25
[2025-08-18 08:59] VITALS: BP 135/76; PULSE 68; RESP 16; TEMP 36.5; O2SAT 99; BMI 34.4
--- OUTSIDE RECORDS SUMMARY | 2025-08-18 08:59 | XMS_ITS | Clinical Summary ---
Author Organization [facility] Facebook Address [address] [place] [address] Care Team Providers Care It Operations Specialist Name Role Phone Matthew Sorenson Primary Care Provider Source Comments [facility] Facebook,non-owned Affiliates and Associated Physician Practices is amultiple site organization consisting of ambulatory clinics and hospital sitesin [place], [place], [place] and [place]. This disclosure is being madepursuant to the Care Everywhere program and may not contain all information available regarding this patient. Last updated 18.[facility] Facebook Allergies Active Allergy Reactions Criticality Noted Date [...] verio strips, Reported on 02/26/2025 Continuous Glucose Dynamometer Tester Engine (Dexcom G7 Dynamometer Tester Engine) SONIA as directed Act khari Continuous Glucose [...] once daily Activ e TRUEplus 5-Bevel [place] 31G X 6 MM MISC USE TO [...] - 06/15/2025 11:59 PM CDT Hospital Encounter [facility] [address] [place] [address] Robb Wakefield MD Discharge Disposition: Home or Self Care 06/05/2025 Telephone Transitional Care at [address] [address] Rena Solano RN Missed Appointment 06/02/2025 Telephone Transitional Care at [address] [address] Malu Noyola MA Question 06/01/2025 Telephone Transitional Care at [address] [address] Rena Solano, carton machine operator 06/01/2025 Travel 05/28/2025 Travel 05/27/2025 11:33 PM CDT - 05/31/2025 9:25 AM CDT Hospital Encounter [facility] [address] [place] [phone] Cristian Garcia MD Kent, Saida A, MD Felgenhauer, Joshua, MD Emergency Medicine Discharge Disposition: Home or Self Care from [...] Recorded Patient Health Questionnaire-2 Score 0 11/20/2024 [facility] - [...] any time in the past 12 m [facility], were you homeless or living in a jail (including now)? 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 Gender Identity Not on file Sexual [...] Visit [facility] - Neurology [address] [facility], [facility] [place] [address] Mary Vargas APRN-PACK WORKER [address] [place] [phone] Health Maintenance Due Date Last Done Comments [...] DIABETES-HGB A1C 11/29/2025 05/29/2025, 06/28/2024 DIABETES-SERUM CREATININE 07/17/20262024, 07/17/2025, 05/31/2025, Additional history exists HIV SCREENING Completed 06/06/2024 [...] topic Medical Devices Implanted Type Area Supervisor Steffen House Device Identifier Shelf Expiration Date Model / Serial / Lot Kit Spnl 5.8mm Spinejack Implanted:Qty: 1 on 07/22/2024 by Arya Rm MD at [facility] N/A: Spine Lumbar Dottie Spine 10/28/2024 [id number] / / [id number] Kit Bone Cmnt Vertaplex Hv Autoplex Wo Implanted:Qty: 1 on 07/22/2024 by Arya Rm MD at [facility] N/A: Spine Lumbar Dottie Spine 05/29/2025 [id number] / / [id number] Port Implinfn Powerport Clrvu Argd Nya Implanted:Qty: 1 on 08/20/2024 by Vic Callahan MD at [facility] Right: Chest Wall Bard Peripheral Vascular 08/28/2025 [id number] / / [id number] Mixer Bone Cmnt Kyphon C20gm Ll Fit [...] [facility] N/A: Spine Lumbar Osteotech Inc [id number] / / Ezekiel Spnl 500mm 5.5mm Cd Hzn Str Ti Ln Cp Implanted:Qty: 1 on 12/02/2024 by Arya Rm MD at [facility] N/A: Spine Lumbar Medtronic Inc [id number] / / Graft Bone Grftn Dbm Aspt 5x2.5cm Post Implanted:Qty: 1 on 12/02/2024 by Arya Rm MD at [facility] N/A: Spine Lumbar Medtronic Inc [id number] / / Screw Set Ti Spnl Brk Off Cd Hzn Nonster Implanted:Qty: 8 on 12/02/2024 by Arya Rm MD at [facility] N/A: Spine Lumbar Medtronic Inc [id number] / / Screw 7.5mm 55mm Ma Spne Solera Cd Hzn Implanted:Qty: 2 on 12/02/2024 by Arya Rm MD at [facility] N/A: Spine Lumbar Medtronic Inc [id number] / / Screw 7.5mm 50mm Ma Spne Solera Cd Hzn Implanted:Qty: 6 on 12/02/2024 by Arya Rm MD at [facility] Medtronic Inc [id number] / / Slnt Dura Duraseal Pg Trilysine Amine 5 Implanted:Qty: 1 on 12/02/2024 by Arya Rm MD at [facility] N/A: Spine Lumbar [employer] Thang / / Explanted Type Area Supervisor Steffen House Device Identifier Shelf Expiration Date Model / Serial / Lot Kit Osteocool Srg 10ga Bone Acc Explanted:Qty: 2 on 07/22/2024 by Arya Rm MD at [facility] N/A: Spine Lumbar Medtronic Inc [id number] / / [id number] Description:Access device, n ot an implant. No other options in system Probe 17ga 20mm Rf Eltx Osteocool 2mm Explanted:Qty: 1 on 07/22/2024 by Arya Rm MD at [facility] N/A: Spine Lumbar Medtronic Inc 03/26/2027 [id number] / / [id number] Description:Access device, n ot an implant. No [...] DATE/TIME OF EXAM: 06/15/2025 10:11 AM, LOCATION [facility] INDICATION: C90.00: Multiple myeloma, remission status unspecified [...] DATE/TIME OF EXAM: 06/15/2025 10:11 AM, LOCATION [facility] INDICATION: C90.00: Multiple myeloma, remission status unspecified [...] 41 - 74 % 05/31/2025 8:08 AM [facility] Lymphocyte % 48(H) 17 - 47 % 05/31/2025 8:08 AM [facility] Monocyte % 7 3 - 11 % 05/31/2025 8:08 AM [facility] Basophil % 2 0 - 2 % 05/31/2025 8:08 AM [facility] Neutrophil Absolute 5.38 1.60 - 7.50 x10E9/L 05/31/2025 8:08 AM [facility] Lymphocyte Absolute 6.00(H) 1.00 - 4.40 x10E9/L 05/31/2025 8:08 AM [facility] Monocyte Absolute 0.88 0.15 - 1.00 x10E9/L 05/31/2025 8:08 AM [facility] Basophil Absolute 0.25(H) 0.00 - 0.13 x10E9/L 05/31/2025 8:08 AM [facility] RBC Morphology REVIEWED 05/31/2025 8:08 AM [facility] Large Platelets PRESENT(A) (none) 05/31/2025 8:08 AM [facility] Blood BLOOD SPECIMEN / Unknown Lab Venipuncture / Unknown 05/31/2025 6:56 AM CDT 05/31/2025 7:31 AM CDT us Cristian Garcia MD LAB - HEMATOLOGY ORDERABLES F inal Result [facility] [address] [place] [address], [facility] [phone] * (ABNORMAL) CBC W AUTO DIFFERENTIAL (05/31/2025 6:56 AM CDT) Only the most recent of4 resultswithin the time period is included. WBC 12.5(H) 4.0 - 10.7 x10E9/L 05/31/2025 8:08 AM [facility] RBC Count 5.46 4.30 - 5.80 x10E12/L 05/31/2025 8:08 AM [facility] Hemoglobin 15.5 13.3 - 17.5 g/dL 05/31/2025 8:08 AM [facility] Hematocrit 46.6 38.7 - 51.1 % 05/31/2025 8:08 AM [facility] MCV 85.3 80.0 - 98.0 fL 05/31/2025 8:08 AM [facility] MCH 28.4 26.7 - 33.6 pg 05/31/2025 8:08 AM [facility] MCHC 33.3 31.7 - 36.3 g/dL 05/31/2025 8:08 AM [facility] RDW-CV 15.1(H) 11.3 - 14.8 % 05/31/2025 8:08 AM [facility] Platelet Count 216 150 - 420 x10E9/L 05/31/2025 8:08 AM [facility] MPV 11.0 7.8 - 11.4 fL 05/31/2025 8:08 AM [facility] Blood BLOOD SPECIMEN / Unknown Lab Venipuncture / Unknown 05/31/2025 6:56 AM CDT 05/31/2025 7:31 AM CDT us Cristian Garcia MD LAB - HEMATOLOGY ORDERABLES F inal Result [facility] [address] [place] [address], [facility] [phone] * (ABNORMAL) RENAL FUNCTION PANEL (05/31/2025 6:56 AM CDT) Only the most recent of3 resultswithin the time period is included. BUN 14 7 - 26 mg/dL 05/31/2025 8:02 AM [facility] Creatinine 0.74 0.71 - 1.16 mg/dL 05/31/2025 8:02 AM [facility] Sodium 138 136 - 145 mmol/L 05/31/2025 8:02 AM [facility] Potassium 3.8 3.5 - 4.5 mmol/L 05/31/2025 8:02 AM [facility] Chloride 108(H) 98 - 107 mmol/L 05/31/2025 8:02 AM [facility] CO2 26 22 - 29 mmol/L 05/31/2025 8:02 AM [facility] Glucose 120(H) 70 - 99 mg/dL 05/31/2025 8:02 AM [facility] Albumin 4.0 3.4 - 5.0 g/dL 05/31/2025 8:02 AM [facility] Calcium 8.7 8.4 - 10.2 mg/dL 05/31/2025 8:02 AM [facility] Phosphorus 3.5 2.8 - 5.1 mg/dL 05/31/2025 8:02 AM [facility] Anion Gap 4(L) 6 - 16 05/31/2025 8:02 AM [facility] BUN/Creatinine Ratio 19 7 - 23 05/31/2025 8:02 AM [facility] Osmolality Calculated 288 275 - 295 mOsm/kg 05/31/2025 8:02 AM [facility] eGFR by CKD-EPI >90 >=90 mL/min/1.7 3 m2 05/31/2025 8:02 AM CDT [facility] Comment:Estimated Glomerular Filtration Rate (eGFR) calculated using the CKD-EPI Creatinine Equation (2020), per the National Kidney Foundation and [place] Society of Nephrology recommendations. Blood BLOOD SPECIMEN / Unknown Lab Venipuncture / Unknown 05/31/2025 6:56 AM CDT 05/31/2025 7:31 AM CDT Cristian Garcia MD LAB - CHEMISTRY ORDERABLES Fi nal Result [facility] [address] [place] [address], [place] [phone] * MAGNESIUM BLOOD (05/31/2025 6:56 AM CDT) Only the most recent of3 resultswithin the time period is included. Magnesium 1.9 1.6 - 2.6 mg/dL 05/31/2025 8:02 AM CDT [facility] Blood BLOOD SPECIMEN / Unknown Lab Venipuncture / Unknown 05/31/2025 6:56 AM CDT 05/31/2025 7:31 AM CDT Cristian Garcia MD LAB - CHEMISTRY ORDERABLES Fi nal Result [facility] [address] [place] [address], [place] [phone] * GLUCOSE - POINT OF CARE (05/31/2025 6:14 AM CDT) Only the most recent of10 resultswithin the time period is included. Glucose WB/POC 98 70 - 99 mg/dL 05/31/2025 6:18 AM CDT [facility] Specimen Type Arterial/C apillary 05/31/2025 6:18 AM CDT [facility] Blood BLOOD SPECIMEN / Unknown 05/31/2025 6:14 AM CDT 05/31/2025 6:18 AM CDT us Robb Wakefield MD LAB - POINT OF CARE ORDERA BLES Final Result [facility] [address] [place] [address], [place] [phone] * HEPATITIS C RNA QUANTITATIVE (05/29/2025 7:04 AM CDT) Hepatitis C RNA PCR, Interp Not detected Not detected 06/01/2025 10:14 AM CDT [facility]CRO[facility] Hepatitis C Quant by PCR, Log NA log IU/mL 06/01/2025 10:14 AM CDT [facility] Blood BLOOD SPECIMEN / Unknown Lab Venipuncture / Unknown 05/29/2025 7:04 AM CDT 05/29/2025 8:58 AM CDT Narrative [facility] - 06/01/2025 10:14 AM CDT The Hepatitis C viral (HCV) RNA analysis utilized a serum sample, real-time reverse radio communications mechanician PCR, and is reported as Not Detected, [...] the isolation of HCV RNA with reverse radio communications mechanician of genomic HCV RNA followed by real-time PCR in the presence of an unrelated RNA internal control. The internal control ensures that RNA is isolated, and that no general significant inhibitors of the RT-PCR process are present. The analysis was performed using a U.S. FDA approved test methodology Nahum gomez HCV. Robb Wakefield MD LAB - CHEMISTRY ORDERABLES Final Result [facility] [address] [place] [address], [facility] [phone] * (ABNORMAL) HEMOGLOBIN A1C (05/29/2025 7:04 AM CDT) Hemoglobin A1c 6.1(H) <=5.6 % 05/29/2025 11:58 AM CDT [facility] Estimated Average Glucose 128 mg/dL 05/29/2025 11:58 AM CDT [facility] Comment: HbA1c Interpretation: Normal : < 5.7% Pre-diabetes: 5.7-6.4% Diabetes: Equal to or greater than 6.5% Test results diagnostic of diabetes should be repeated for confirmation. Treatment target values recommended by ADA and other clinical organizations should be used to evaluate metabolic control in patients. Reference: [place] Diabetes Association, Standards of Care in Diabetes [...] - CHEMISTRY ORDERABLES Fi nal Result [address] [address], [facility] [phone] * (ABNORMAL) C-REACTIVE PROTEIN (05/28/2025 1:59 PM CDT) C-Reactive Protein 0.6(H) <=0.5 mg/dL 05/28/2025 2:38 PM CDT [facility] Blood BLOOD SPECIMEN / Unknown Venipuncture / Unknown 05/28/2025 1:59 PM CDT 05/28/2025 2:10 PM CDT us Robb Wakefield MD LAB - CHEMISTRY ORDERABLES Final Result [address] [address] [phone] * ERYTHROCYTE SEDIMENTATION RATE (05/28/2025 1:59 PM CDT) Erythrocyte Sedimentation Rate Yoni 8 0 - 15 MM/HR 05/28/2025 2:32 PM CDT [facility] Blood BLOOD SPECIMEN / Unknown Venipuncture / Unknown 05/28/2025 1:59 PM CDT 05/28/2025 2:10 PM CDT us Robb Wakefield MD LAB - HEMATOLOGY ORDERABLE S Final Result [facility] [address] [place] [address], [facility] [phone] * CT Lumbar Spine Wo Contrast (05/28/2025 [...] correlation for possible infection. > Dictated by Water Softener Installer I, Natan Modi MD have personally reviewed and interpreted this examination/study. > Interpreting Provider: Natan Modi MD on 05/28/2025 10:09 AM Narrative 05/28/2025 10:09 AM CDT PROCEDURE: CT THORACIC SPINE WO CONTRAST, CT LUMBAR SPINE WO CONTRAST, DATE/TIME OF EXAM: 05/28/2025 3:39 AM, LOCATION [facility] INDICATION: M54.6: Acute midline thoracic back pain [...] OF EXAM: 05/28/2025 3:39 AM, LOCATION [facility] INDICATION: M54.6: Acute midline thoracic back pain [...] L3 on L4. Redemonstration of a chronic X7fzetbtzec body fracture status post kyphoplasty. An irregular lytic lesion and the sclerotic changes with cortical enlargement are noted in the J7okieahexv body. No acute fracture identified. Mild to [...] correlation for possible infection. > Dictated by Water Softener Installer I, Natan Modi MD have personally reviewed [...] correlation for possible infection. > Dictated by Water Softener Installer I, Natan Modi MD have personally reviewed and interpreted this examination/study. > Interpreting Provider: Natan Modi MD on 05/28/2025 10:09 AM Narrative 05/28/2025 10:09 AM CDT PROCEDURE: CT THORACIC SPINE WO CONTRAST, CT LUMBAR SPINE WO CONTRAST, DATE/TIME OF EXAM: 05/28/2025 3:39 AM, LOCATION [facility] INDICATION: M54.6: Acute midline thoracic back pain [...] OF EXAM: 05/28/2025 3:39 AM, LOCATION [facility] INDICATION: M54.6: Acute midline thoracic back pain [...] L3 on L4. Redemonstration of a chronic R3qzdbhihnu body fracture status post kyphoplasty. An irregular lytic lesion and the sclerotic changes with cortical enlargement are noted in the P9pyzchekbh body. No acute fracture identified. Mild to [...] correlation for possible infection. > Dictated by Water Softener Installer I, Natan Modi MD have personally reviewed and interpreted this examination/study. > Interpreting Provider: Natan Modi MD on 05/28/2025 10:09 AM Cristian Garcia MD CT ORDERABLES Final Result * TYPE + SCREEN PANEL (05/28/2025 1:26 AM CDT) Antibody Screen NEG 2:26 AM CDT [facility] ABO Rh O POS 05/28/2025 2:26 AM CDT [facility] Blood Bank BLOOD SPECIMEN / Unknown Venipuncture / Unknown 05/28/2025 1:26 AM CDT 05/28/2025 1:46 AM CDT Cristian Garcia MD LAB - BLOOD BANK ORDERABLES F inal Result [facility] [address] [place] [address], [facility] [phone] * (ABNORMAL) COMPREHENSIVE METABOLIC PANEL (05/28/2025 1:26 AM [facility]) BUN 14 7 - 26 mg/dL 05/28/2025 2:10 AM [facility] Creatinine 0.86 0.71 - 1.16 mg/dL 05/28/2025 2:10 AM [facility] Sodium 140 136 - 145 mmol/L 05/28/2025 2:10 AM [facility] Potassium 3.9 3.5 - 4.5 mmol/L 05/28/2025 2:10 AM [facility] Chloride 110(H) 98 - 107 mmol/L 05/28/2025 2:10 AM [facility] CO2 24 22 - 29 mmol/L 05/28/2025 2:10 AM [facility] Glucose 107(H) 70 - 99 mg/dL 05/28/2025 2:10 AM [facility] Calcium 8.9 8.4 - 10.2 mg/dL 05/28/2025 2:10 AM [facility] Protein Total 6.3 6.0 - 8.3 g/dL 05/28/2025 2:10 AM [facility] Albumin 4.3 3.4 - 5.0 g/dL 05/28/2025 2:10 AM [facility] Bilirubin Total 0.3 0.2 - 1.2 mg/dL 05/28/2025 2:10 AM [facility] Alkaline Phosphatase 129 40 - 150 U/L 05/28/2025 2:10 AM [facility] ALT 23 5 - 55 U/L 05/28/2025 2:10 AM [facility] AST 25 5 - 34 U/L 05/28/2025 2:10 AM [facility] Anion Gap 6 6 - 16 05/28/2025 2:10 AM [facility] BUN/Creatinine Ratio 16 7 - 23 05/28/2025 2:10 AM [facility] Osmolality Calculated 291 275 - 295 mOsm/kg 05/28/2025 2:10 AM T [facility] Albumin/Globulin Ratio 2.2 1.1 - 2.3 05/28/2025 2:10 AM T [facility] eGFR by CKD-EPI >90 >=90 mL/min/1.7 3 m2 05/28/2025 2:10 AM T [facility] Comment:Estimated Glomerular Filtration Rate (eGFR) calculated using the CKD-EPI Creatinine Equation (2020), per the National Kidney Foundation and [place] Society of Nephrology recommendations. Blood BLOOD SPECIMEN / Unknown Venipuncture / Unknown 05/28/2025 1:26 AM CDT 05/28/2025 1:39 AM CDT us Cristian Garcia MD LAB - CHEMISTRY ORDERABLES Fi nal Result Performing Organization Address City/[facility]/ZIP Co de Phone Number [facility] [address] [place] [address], [facility] [phone] * MICROALB/CREAT RATIO URINE RANDOM PANEL (06/28/2024 6:31 AM CDT) Albumin Random Urine <5.0 Not Established ug/mL 06/28/2024 9:49 PM [facility] Creatinine Urine 82.62 Not Established mg/dL 06/28/2024 9:49 PM [facility] Urine Albumin/Creati nine Ratio <6 <30 mg/g 06/28/2024 9:49 PM [facility] Albumin/Creati nine Ratio Urine See Comment <30 mg/g 06/28/2024 9:49 PM [facility] Comment:Unable to calculate the Urine Albumin/Creatinine Ratio due to one or more analyte concentration(s) being outside the measuring limits of the instrument. Urine URINE SPECIMEN OBTAINED BY CLEAN CATCH PROCEDURE / Unknown Collection / Unknown 06/28/2024 6:31 AM CDT 06/28/2024 7:54 PM CDT us Robb Gomez MD LAB - URINE CHEMISTRY ORDERA BLES Final Result [facility] [address] [place] [address], [place] [phone] * HIV-1 HIV-2 ANTIBODY + HIV P24 AG PANEL (06/06/2024 11:59 AM CDT) HIV Antigen/Antibod y 1 & 2 Non-reacti ve Non-react khari 06/06/2024 12:58 PM CDT [facility] Comment:No Laboratory eviden ce of HIV infection. Blood BLOOD SPECIMEN / Unknown Lab Venipuncture / Unknown 06/06/2024 11:59 AM CDT 06/06/2024 12:07 PM CDT Gina Burt MD LAB - CHEMISTRY ORDERABLES Final Result [facility] [address] [place] [address], [place] [phone] from Last 3 Months or Most Recently Relevant to Health Maintenance Additional Health Concerns Infection Onset Date Last Indicated 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 Insurance MEDICAID [employer] [place] Advance Directives Documents on File Type Date Recorded Patient Information Technology Security Manager Expl anation Adv Directive/Living Will/POA 08/13/2024 1:30 [...] 10:06 PM 10/01/2024 2:14 PM Care Teams It Operations Specialist Relationship Specialty Start Date End Date Matthew Sorenson PA [address] [place] [address] PCP - General 02/02/22
[2025-08-18] MEDS: diphenhydrAMINE HCl CAP 25 MG CAPSULE PO (09:05)
[2025-08-18] MEDS: ACETAMINOPHEN 325 MG TABLET 650 MG PO (09:05)
[2025-08-18] MEDS: FAMOTIDINE 20 MG TABLET PO (09:05)
[2025-08-18] MEDS: DARATUMUMAB-HYALURONIDASE-FIHJ 1,800 MG-30,000 UNITS VIAL 15 ML SUB-Q (09:22)
[2025-08-18 09:34] LABS: Alanine Aminotransferase 23 U/L (6-50); Albumin Level 4.6 g/dL (3.5-5.1); Alkaline Phosphatase 93 U/L (38-126); Anion Gap 10 mmol/L (4-12); Aspartate Amino Transferase 22 U/L (17-59); Bilirubin,Total 0.6 mg/dL (0.2-1.3); Blood Urea Nitrogen 13 mg/dL (9-20); Calcium 9.8 mg/dL (8.4-10.2); Carbon Dioxide 23 mmol/L (22-30); Chloride 106 mmol/L (98-107); Estimated CRCL calculation 138 ml/min; Estimated Glomerular Filt Rate > 60; Glucose 143 mg/dL (65-110); Osmolality Calculated 290 mOsm/kg (285-295); Potassium 4.6 mmol/L (3.4-5.0); Sodium 139 mmol/L (137-145); Total Protein 7.4 g/dL (6.3-8.2)
[2025-08-18 09:53] VITALS: BP 135/80; PULSE 68; RESP 14; TEMP 36.6; O2SAT 98
--- NOTE | 2025-08-18 10:00 | PC.NURSE ---
Patient tolerated injection treatment well. SEE MAR/patient care notes.
== END 2025-08-18 08:31 | disposition home or self-care (01) ==
PROVIDERS: PCP Physician Assistant; Visit Provider Internal Medicine Hematology
DX: Z51.11 Encounter for antineoplastic chemotherapy (principal); C90.00 Multiple myeloma not having achieved remission
CPT/HCPCS: 36415; 80053; 85027; 96401; A9270; J8540; J9144

== ENCOUNTER 2025-08-31 08:17 | Outpatient (CLI) | payer OTHER, SELFPAY ==
--- OUTSIDE RECORDS SUMMARY | 2025-02-19 10:37 | XMS_ITS | Encounter Summary ---
Author Organization [facility] Address [address] [place] [address] Care Team Providers Care Tank Builder And Erector Name Role Phone Matthew Sorenson Primary Care Provider [phone] Jose Luis Brooks MD Unavailable [phone] Abelardo Presley MD Unavailable [phone] Bo Francisco MD Unavailable [phone] Angie Rogers MD Unavailable Katie GutierrezD Unavailable Unavaila Jaja Casillas RN Unavailable Unavailable Abimbola Waters KILN LOADER-YOUTH DEVELOPMENT SPECIALIST Unavailable [phone] Perri eDxter KILN LOADER-YOUTH DEVELOPMENT SPECIALIST Unavailable [phone] Marilyn Bennett RN Unavailable Unavailable Erasmo Roberson RN Unavailable Unavailable Alexandra Cota RN Unavailable Unavailable Alda Braswell Unavailable Unavailable Lucia Sharif LCSW Unavailable Unavailab le Reason for Referral * (Routine) - Authorized Specialty Diagnoses / Procedures Referred By Contac t Referred To Contact Procedures Follow up with provider Juan Valencia MD [address] [place] [address] Phone: tel: fax: Referral ID Status Reason Start Date Expiration Date V isits Requested Visits Authorized [id number] Authorized 02/19/2025 02/19/2026 1 1 * Radiology Services (Routine) - Pending Review Specialty Diagnoses / Procedures Referred By Vikash winters Referred To Contact Diagnoses Hepatitis C virus infection without hepatic coma, unspecified chronicity History of multiple myeloma Procedures CT US Guided Needle Placement IR Perc Liver Biopsy Juan Valencia MD [address] [facility] [address] [place] [address] Phone: tel: fax: [facility] [address] [place] [address] Phone: tel: Referral ID Status Reason Start Date Expiration Date V isits Requested Visits Authorized [id number] Pending Review 02/19/2025 02/19/2026 1 1 Reason for Visit * Auth/Cert (Routine) Specialty Diagnoses / Procedures Referred By Vikash winters Referred To Contact Diagnoses Chronic hepatitis C without hepatic coma (HCC) Transaminitis Chronic hepatitis C without hepatic coma (HCC) [B18.2] Transaminitis [R74.01] Procedures CT US GUIDED NEEDLE PLACEMENT BIOPSY LIVER (NEEDLE/PERCUTANEOUS) Referral ID Status Reason Start Date Expiration Date Visits Re quested Visits Authorized [id number] 1 1 Encounter Details Date Type Department Care Team (Latest Contact Info) Description 02/19/2025 11:37 AM CDT Hospital Encounter [facility] IVR [address] [place] [phone] Juan Valencia MD [facility] [address] [place] [address] Interven Radiology Social History Tobacco Use Types Packs/Day Years Used Date Smoking Tobacco: Former Cigarettes 1.5 34 S tarted: 08/20/1991 Passive Smoke Exposure: Past [...] Date Recorded Patient Health Questionnaire-2 Score 0 11/20/2024 [facility] - Occupational Stress [...] place to sleep or slept in a fci (including now)? No 06/04/2024 Housing Stability Vital Sign Answer Obed e Recorded In the last 12 months, was t here a time when you were not able to pay the mortgage or rent on time? Yes 11/23/2024 In the past 12 months, how m any times have you moved where you were living? 0 11/23/2024 At any time in the past 12 m [facility], were you homeless or living in a fci (including now)? 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 No 02/19/2025 1:20 PM AURET Richie Alejandro RN Is person blind or have seri ous difficulty seeing? No 02/19/2025 1:20 PM AURET Richei Alejandro RN Does person have serious difficulty walking/climbing stairs? No 02/19/2025 1:20 PM AURET Richie Alejandro RN Does person have difficulty dressing/bathing? No 02/19/2025 1:20 PM Richie Kruse RN Does person have difficulty doing errands alone? No 02/19/2025 1:20 PM Richie Kruse RN Does person have difficulty concentrating/remembering/making decisions? [...] No 02/19/2025 1:20 PM CDT Richie Alejandro, RN * Does person have difficulty doing errands alone? Answer Date of Assessment Author No 02/19/2025 1:20 PM CDT Richie Alejandro, RN documented as of this encounter Mental Status * Does person have difficulty concentrating/remembering/making decisions? Answer Entry Date Author No 02/19/2025 1:20 PM CDT Richie Alejandro, RN documented in this encounter Progress Notes * [...] Patient: Joselito Nguyen Attending: Callum Guerrero MD Chair And Couch Maker: Seng Gaston MD Diagnosis/Indication: hx of hep [...] for the entire procedure. Callum Guerrero MD Pants Maker Vascular & Interventional Radiology 02/20/2025 5:30 AM documented in this encounter Miscellaneous Notes * Clinical References AVS - Richie Alejandro RN - 02/19/2025 1:22 PM CDT Images from the original note were not included. [address] Liver Biopsy A liver biopsy is when [...] naproxen. ?? Medicines for heart conditions ?? Naxf-pdl-bavwnyv medicines ?? All prescription medicines ?? Illegal [...] belly Last Reviewed Date: 2023 00:00:00 ?? [id number] [employer]. All rights reserved. This information is not intended as a substitute for professional medical care. Always follow your healthcare professional's instructions. documented in this encounter Plan of Treatment Not on file documented as of this encounter Procedures Procedure [...] pending at the time of this dictation. I, Dr. Guerrero, was present and performed/supervised the entire procedure. [...] evaluation, please review the evaluation forms in [facility]. For details on monitored clinical parameters during the intra-service sedation time, please review the procedure nurse documentation in [facility]. > Dictated by Seng Gaston MD (Piece Hand) 02/19/2025 12:59 PM I, Callum Guerrero MD have personally reviewed and interpreted this [...] pending at the time of this dictation. I, Dr. Guerrero, was present and performed/supervised the entireprocedure. Moderate sedation on this patient was ordered by me, administered intravenously in my presence, and monitored by the procedure nurse as an independent trained observer who was present throughout the procedure.The following parameters were monitored: oxygen saturation, heart rate,blood pressure, and response to care. Intra-service sedation start time [id number] hours and end time was 1236 hours during which I was present. Total physician intra-service sedation time was 30 minutes. For details on pre moderate sedation and post moderate sedation patient evaluation, please review the evaluation forms in [facility]. For details on monitored clinical parameters during the intra-service sedation time, please review the procedure nurse documentation in [facility]. > Dictated by Seng Gaston MD (Piece Hand) 02/19/2025 12:59 PM I, Callum Guerrero MD have personally reviewed and interpreted this examination/study. > Interpreting Provider: Callum Guerrero MD on 02/24/2025 5:33 PM Juan Valencia MD CT ORDERABLES Final Result * PATHOLOGY TISSUE (02/19/2025 12:34 PM CDT) Case Report Surgical Pathology Report Case: [id number] Authorizing Provider: Juan Valencia MD Collected: 02/19/2025 12:34 PM Ordering Location: [facility] IVR Received: 02/19/2025 01:06 PM Pathologist: Sammi Escalante MD Specimen: Liver Needle Biopsy, liver bx 02/20/2025 3:50 PM CDT [facility] Final Diagnosis Liver, biopsy (A): - Chronic hepatitis with minimal-mild activity - Steatosis and lobular inflammation without ballooning - Cirrhosis, see comment 02/20/2025 3:50 PM CDT [facility] at 1550 CDT Microscopic Description [...] 8 (steatosis-1, inflammation-1, ballooning-0). 02/20/2025 3:50 PM [facility] Clinical History The patient is a 44-year-old man with history of hepatitis C infection and appearance of cirrhosis on diagnostic imaging. Operative procedure: Ultrasound-guided random core liver biopsy 02/20/2025 3:50 PM [facility] Gross Description The requisition and specimen(s) are identified with the patient's name, Joselito Nguyen. Received in formalin, specimen A, are two baldwin-pink needle cores, 1.7 and 1.0 cm, both 0.1 cm diameter, submitted in toto in cassette A1. IKD 02/20/2025 3:50 PM [facility] Pathologist Location at [facility] 02/20/2025 3:50 PM [facility] Disclaimer The performance characteristics of all immunohistochemical and indirect immunofluorescence stains (if any) cited in this report were determined by the Histopathology Laboratory of [facility]. Some of these tests were developed by [...] the attending (teaching) pathologist. 02/20/2025 3:50 PM CDT [facility] Collected By Balbir Rdz RN 3:50 PM CDT [facility] Embedded Images 02/20/2025 3:50 PM CDT [facility] Pathology/Cytolo gy NEEDLE BIOPSY OF LIVER / Unknown Collection / Unknown 02/19/2025 12:34 PM CDT 02/19/2025 1:06 PM CDT Comment:LIVER NEEDLE BIOPSY Juan Valencia MD LAB - PATHOLOGY/CYTOLOGY ORDER LISSETH Final Result [facility] [address] [place] [address], [facility] [phone] documented in this encounter Visit Diagnoses Diagnosis [...] documented as of this encounter Care Teams Tank Builder And Erector Relationship Specialty Start Date End Date Matthew Sorenson PA [address] [place] [address] PCP - General 02/02/22 Jose Luis Brooks MD [address] [place] [address] Director Of Product Management/Oncologis t Hematology and Oncology 08/29/24 05/27/25 Abelardo Presley MD [address] [place] [address] Hematology and Oncology 08/29/24 03/04/25 Bo Francisco MD [address] [place] [address] Hematology and Oncology 08/29/24 03/04/25 Angie Rogers MD [address] [place] [address] Physician Hematology and Oncology 08/29/24 03/04/25 Katie Gtuierrez, PharmD 08/29/24 03/04/25 Jaja Rayo, RN Registered Nurse 08/29/24 03/04/25 Abimbola Waters APRN-YOUTH DEVELOPMENT SPECIALIST [facility] [place] [phone] Nurse Practitioner Nurse Practitioner 08/29/24 03/04/25 Perri Dexter APRN-CNP [address] [place] [address] Nurse Practitioner Nurse Practitioner 08/29/24 03/04/25 Marilyn Bennett, LOLI Coordinator 08/29/24 05/27/25 Erasmo Roberson, RN Registered Nurse 08/29/24 03/04/25 Alexandra Cota, RN Registered Nurse 08/29/24 03/04/25 Alda Braswell 08/29/24 03/04/25 Lucia Sharif PADDER Supervisor Counseling And Guidance 08/29/24 03/04/25 documented as of this encounter
--- OUTSIDE RECORDS SUMMARY | 2025-08-31 08:27 | XMS_ITS | Clinical Summary ---
Author Organization [facility] Address [address] [address] Phone Care Team Providers Care Comfort Filler Name Role Phone Matthew Sorenson Primary Care Provider [phone] Allergies Active Allergy Reactions Criticality Noted Date [...] Immunization (#1) 2025 SARS-COV-2 Immunization ( - 2024- season) 2025 Respiratory Syncytial Virus (RSV) Immunization [...] Insurance MEDICAID [employer] Care Teams Comfort Filler Relationship Specialty Start Date End Date Matthew Sorenson PAC [address] [place] [address] PCP - General Physician Soft Crab Shedder 04/27/25
--- OUTSIDE RECORDS SUMMARY | 2025-08-31 08:27 | XMS_ITS ---
Author Organization [facility] Address [address] [facility] [place] [address] Care Team Providers Care Accounts Receivable Executive Name Role Phone Matthew Sorenson Primary Care Provider [phone] Active Problems Problem Noted Date Diagnosed Date [...]
--- OUTSIDE RECORDS SUMMARY | 2025-08-31 08:27 | XMS_ITS | Encounter Summary ---
Author Organization [facility] Address [address] [place] [address] Care Team Providers Care Pool Finisher Name Role Phone Matthew Sorenson Primary Care Provider [phone] Jose Luis Brooks MD Unavailable [phone] Abelardo Presley MD Unavailable [phone] Bo Francisco MD Unavailable [phone] Angie Rogers MD Unavailable Katie GutierrezD Unavailable Unavaila Jaja Casillas RN Unavailable Unavailable Abimbola Waters TRUCK DRIVER HEAVY-DESIGN PROJECT MANAGER Unavailable [phone] Perri Dexter TRUCK DRIVER HEAVY-DESIGN PROJECT MANAGER Unavailable [phone] Marilyn Bennett RN Unavailable Unavailable Erasmo Roberson RN Unavailable Unavailable Alexandra Cota RN Unavailable Unavailable Alda Braswell Unavailable Unavailable Lucia Sharif LCSW Unavailable Unavailab le Reason for Visit * Reason Onset Date Comments MEDICATION REFILL 10/20/2024 Encounter Details Date Type Department Care Team (Late st Contact Info) Description 10/20/2024 Refill [facility] - Hematology/Oncology [address] [place] [address] Jose Luis Brooks MD [address] [facility] [place] [address] MEDICATION REFILL Social History Tobacco [...] Recorded Patient Health Questionnaire-2 Score 1 08/12/2024 [facility] [...] place to sleep or slept in a penitentiary (including now)? No 06/04/2024 Housing Stability Vital [...] time in the past 12 m [facility], were you homeless or living in a penitentiary (including now)? 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 Gender Identity Not on file Sexual Orientation [...] documented as of this encounter Care Teams Pool Finisher Relationship Specialty Start Date End Date Matthew Sorenson PA [address] [place] [address] PCP - General 02/02/22 Jose Luis Brooks MD [address] [place] [id number] Auto Emissions Technician/Oncologis t Hematology and Oncology 08/29/24 05/27/25 Abelardo Presley MD [address] [place] [address] Hematology and Oncology 08/29/24 03/04/25 Bo Francisco MD [address] [place] [phone] Hematology and Oncology 08/29/24 03/04/25 Angie Rogers MD [address] [place] [phone] Physician Hematology and Oncology 08/29/24 03/04/25 Katie Gutierrez, PharmD 08/29/24 03/04/25 Jaja Raoy RN Registered Nurse 08/29/24 03/04/25 Abimbola Waters APRN-CNP [facility] [place] [address] Nurse Practitioner Nurse Practitioner 08/29/24 03/04/25 Perri Dexter APRN-CNP [address] [place] [phone] Nurse Practitioner Nurse Practitioner 08/29/24 03/04/25 Marilyn Bennett, LOLI Coordinator 08/29/24 05/27/25 Erasmo Roberson, RN Registered Nurse 08/29/24 03/04/25 Alexandra Cota, RN Registered Nurse 08/29/24 03/04/25 Alda Braswell 08/29/24 03/04/25 Lucia Sharif, WARPER FIXER Director Of User Experience 08/29/24 03/04/25 documented as of this encounter
--- OUTSIDE RECORDS SUMMARY | 2025-08-31 08:27 | XMS_ITS | Encounter Summary ---
Author Organization [facility] Address [address] [place] [address] Care Team Providers Care Clinical Rehabilitation Aide Name Role Phone Matthew Sorenson Primary Care Provider [phone] Jose Luis Brooks MD Unavailable [phone] Abelardo Presley MD Unavailable [phone] Bo Francisco MD Unavailable [phone] Angie Rogers MD Unavailable Katie GutierrezD Unavailable Unavaila Jaja Casillas RN Unavailable Unavailable Abimbola Waters STOREROOM ATTENDANT-INSTALLATION TECH Unavailable [phone] Perri Dexter STOREROOM ATTENDANT-INSTALLATION TECH Unavailable [phone] Marilyn Bennett RN Unavailable Unavailable Erasmo Roberson RN Unavailable Unavailable Alexandra Cota RN Unavailable Unavailable Alda Braswell Unavailable Unavailable Lucia Sharif LCSW Unavailable Unavailab le Reason for Visit * Reason Onset Date Comments MEDICATION REFILL 10/20/2024 Encounter Details Date Type Department Care Team (Late st Contact Info) Description 10/20/2024 Refill Luigi LOUISE [address] [place] [address] Gina Denton MD [address] [place] [address] MEDICATION REFILL Social History Tobacco Use Types [...] on file 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 Gender Identity Not on file Sexual [...] documented as of this encounter Care Teams Clinical Rehabilitation Aide Relationship Specialty Start Date End Date Matthew Sorenson PA [address] [place] [id number] PCP - General 02/02/22 Jose Luis Brooks MD [facility] [place] [address] Dairy Farmer/Oncologis t Hematology and Oncology 08/29/24 05/27/25 Abelardo Presley MD [address] [place] [id number] Hematology and Oncology 08/29/24 03/04/25 [place] [address] [place] [phone] Hematology and Oncology 08/29/24 03/04/25 [place] [address] [place] [phone] Physician Hematology and Oncology 08/29/24 03/04/25 Katie Gutierrez, PharmD 08/29/24 03/04/25 Jaja Rayo RN Registered Nurse 08/29/24 03/04/25 Abimbola Waters APRN-CNP [address] [place] [phone] Nurse Practitioner Nurse Practitioner 08/29/24 03/04/25 Perri Dexter APRN-CNP [address] [place] [phone] Nurse Practitioner Nurse Practitioner 08/29/24 03/04/25 Marilyn Bennett, LOLI Coordinator 08/29/24 05/27/25 Erasmo Roberson, RN Registered Nurse 08/29/24 03/04/25 Alexandra Cota, RN Registered Nurse 08/29/24 03/04/25 Alda Braswell 08/29/24 03/04/25 Lucia Sharif, HEADLINER INSTALLER Individual Pension Adviser 08/29/24 03/04/25 documented as of this encounter
--- OUTSIDE RECORDS SUMMARY | 2025-08-31 08:27 | XMS_ITS | Clinical Summary ---
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
--- OUTSIDE RECORDS SUMMARY | 2025-08-31 08:28 | XMS_ITS | Clinical Summary ---
Author Organization [facility] Address [address] [facility] [place] [place] [address] Care Team Providers Care Quarter Folder Name Role Phone Matthew Sorenson Primary Care Provider [phone] Source Comments [facility],non-owned Affiliates and Associated Physician Practices is amultiple site organization consisting of ambulatory clinics and hospital sitesin [place], [place], [place] and [place]. This disclosure is being madepursuant to the Care Everywhere program and may not contain all information available regarding this patient. Last updated 18.[facility] Allergies Active Allergy Reactions Criticality Noted Date [...] meal. One touch verio strips, Reported on 08/18/2025 Continuous Glucose [facility] Hospitalist (Dexcom G7 [facility] Hospitalist) SONIA as directed Act khari Continuous Glucose Sensor (Dexcom G7 Sensor) MISC as directed 08/07/20 Active apixaban (Eliquis) 5 MG tablet Take 1 (one) tablet by mouth 2 times daily 60 tablet 3 10/01/20 24 Active insulin glargine (Lantus/Semglee ) 100 units/mL pen Inject 10 (ten) Units subcutaneously every 24 hours for 30 days 3 mL 2 10/01/20 Active Additional Information Patient taking differently: 20 UnitsSubcutaneous EVERY 24 HOURS, Reported on 08/18/2025 hydrOXYzine HCl (Atarax) 25 MG tabletIndicatio ns:Itching [...] once daily Activ e TRUEplus 5-Bevel Pen [place] 31G X 6 MM MISC USE TO [...] Encounters Date Type Department Care Team Description 08/18/2025 1:00 PM CDT Office Visit [facility] - Neurology [address] [facility] [place] [address] Mary Vargas, FRUIT RAISER-PROCESS LEAD Carpal tunnel syndrome of right wrist (Primary Dx); Cubital tunnel syndrome on right 08/18/2025 Travel 06/15/2025 8:30 AM CDT - 06/15/2025 11:59 PM CDT Hospital Encounter [facility] [address] [place] [address] Robb Wakefield MD Discharge Disposition: Home or Self Care 06/05/2025 Telephone Transitional Care at [address] [address] Rena Solano RN Missed Appointment 06/02/2025 Telephone Transitional Care at [address] [address] Malu Noyola MA Question 06/01/2025 Telephone Transitional Care at [address] [address] [address] 06/01/2025 Travel 05/27/2025 11:33 PM CDT - 05/31/2025 9:25 AM CDT Hospital Encounter JOISAH LOUISE [address] [place] [address] Cristian Garcia MD [place], MD Ashu Umaña [...] on file 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 Gender Identity Not on file Sexual Orientation Not on file Last Filed Vital Signs Vital Sign Reading Time Taken Comments Blood Pressure 139/87 08/18/2025 12:52 PM CDT Pulse 86 08/18/2025 12:52 PM CDT Temperature 36.4 C (97.5 F) 05/31/2025 5:14 AM CDT Respiratory Rate 16 05/31/2025 9:06 AM CDT Oxygen Saturation 96% 08/18/2025 12:52 PM CDT Inhaled Oxygen Concentration 21% 02/19/2025 1 :30 PM CDT Weight 116.6 kg (257 lb) 08/18/2025 12:52 PM CDT Height 182.9 cm (6') 08/18/2025 12:52 PM CDT Body Mass Index 34.86 08/18/2025 12:52 PM CDT Plan of Treatment Health Maintenance [...] this topic Medical Devices Implanted Type Area Braker Passenger Train Device Identifier Shelf Expiration Date Model / Serial / Lot Kit Spnl 5.8mm Spinejack Implanted:Qty: 1 on 07/22/2024 by Arya Rm MD at [facility] N/A: Spine Lumbar Craig Spine 10/28/2024 [id number] / / [id number] Kit Bone Cmnt Vertaplex Hv Autoplex Wo Implanted:Qty: 1 on 07/22/2024 by Arya Rm MD at [facility] N/A: Spine Lumbar Dottie Spine 05/29/2025 [id number] / / [id number] Port Implinfn Powerport Clrvu Argd Nya Implanted:Qty: 1 on 08/20/2024 by Vic Callahan MD at [facility] Right: Chest Wall Bard Peripheral Vascular 08/28/2025 [id number] / / [id number] Mixer Bone Cmnt Kyphon C20gm Ll Fit Implanted:Qty: 1 on 12/02/2024 by Arya Rm MD at [facility] N/A: Spine Lumbar Kyphon Inc [id number] / / Cmnt Bone Hv-R Kphx Mxr Grad Mrk Dspns Implanted:Qty: 1 on 12/02/2024 by Arya Rm MD at [facility] N/A: Spine Lumbar Kyphon Inc [id number] / / Graft Bone Grftn Dbm Plif 10x2.5cm Implanted:Qty: 1 on 12/02/2024 by Arya Rm MD at [facility] N/A: Spine Lumbar Osteotech Inc [id number] / / Ezekiel Spnl 500mm 5.5mm Cd Hzn Str Ti Ln Cp Implanted:Qty: 1 on 12/02/2024 by Arya Rm MD at [facility] N/A: Spine Lumbar Medtronic Inc [id number] / / Graft Bone Grftn Dbm Aspt 5x2.5cm Post Implanted:Qty: 1 on 12/02/2024 by Arya Rm MD at [facility] N/A: Spine Lumbar Medtronic Inc [id number] / / Screw Set Ti Spnl Brk Off Cd Hzn Nonster Implanted:Qty: 8 on 12/02/2024 by Arya Rm MD at [facility] N/A: Spine Lumbar Medtronic Inc [id number] / / Screw 7.5mm 55mm Ma Spne Solera Cd Hzn Implanted:Qty: 2 on 12/02/2024 by Arya Rm MD at [facility] N/A: Spine Lumbar Medtronic Inc [id number] / / Screw 7.5mm 50mm Ma Spne Solera Cd Hzn Implanted:Qty: 6 on 12/02/2024 by Arya Rm MD at [facility] Medtronic Inc [id number] / / Slnt Dura Duraseal Pg Trilysine Amine 5 Implanted:Qty: 1 on 12/02/2024 by Arya Rm MD at [facility] N/A: Spine Lumbar Integra SonicSurg InnovationsciSIZESEEKER Thang / / Explanted Type Area Braker Passenger Train Device Identifier Shelf Expiration Date Model / Serial / Lot Kit Osteocool Srg 10ga Bone Acc Explanted:Qty: 2 on 07/22/2024 by Arya Rm MD at [facility] N/A: Spine Lumbar Medtronic Inc [id number] / / [id number] Description:Access device, n ot an implant. No other options in system Probe 17ga 20mm Rf Eltx Osteocool 2mm Explanted:Qty: 1 on 07/22/2024 by Arya Rm MD at [facility] N/A: Spine Lumbar Medtronic Inc 03/26/2027 [id number] / / [id number] Description:Access device, n ot an implant. No [...] OF CARE Routine 05/31/2025 12:37 AM CDT HEPATITIS C RNA QUANTITATIVE Routine 05/29/2025 7:04 AM CDT HEMOGLOBIN A1C Routine 05/29/2025 7:04 AM CDT Multiple myeloma, remission status unspecified (HCC) MICROALB/CREAT RATIO URINE RANDOM PANEL Routine 06/28/2024 [...] DATE/TIME OF EXAM: 06/15/2025 10:11 AM, LOCATION [facility] INDICATION: C90.00: Multiple myeloma, remission status unspecified [...] DATE/TIME OF EXAM: 06/15/2025 10:11 AM, LOCATION [facility] INDICATION: C90.00: Multiple myeloma, remission status unspecified ([facility]) ADDITIONAL CLINICAL INFORMATION: Ordering Provider Reason For [...] 41 - 74 % 05/31/2025 8:08 AM T [facility] Lymphocyte % 48(H) 17 - 47 % 05/31/2025 8:08 AM CDT [facility] Monocyte % 7 3 - 11 % [facility] Basophil % 2 0 - 2 % 05/31/2025 8:08 AM [facility] Neutrophil Absolute 5.38 1.60 - 7.50 x10E9/L 05/31/2025 8:08 AM [facility] Lymphocyte Absolute 6.00(H) 1.00 - 4.40 x10E9/L 05/31/2025 8:08 AM [facility] Monocyte Absolute 0.88 0.15 - 1.00 x10E9/L 05/31/2025 8:08 AM [facility] Basophil Absolute 0.25(H) 0.00 - 0.13 x10E9/L 05/31/2025 8:08 AM [facility] RBC Morphology REVIEWED 05/31/2025 8:08 AM [facility] Large Platelets PRESENT(A) (none) 05/31/2025 8:08 AM [facility] Blood BLOOD SPECIMEN / Unknown Lab Venipuncture / Unknown 05/31/2025 6:56 AM CDT 05/31/2025 7:31 AM CDT us Cristian Garcia MD LAB - HEMATOLOGY ORDERABLES F inal Result [address] [address], [facility] [phone] * (ABNORMAL) CBC W AUTO DIFFERENTIAL (05/31/2025 6:56 AM CDT) WBC 12.5(H) 4.0 - 10.7 x10E9/L 05/31/2025 8:08 AM [facility] RBC Count 5.46 4.30 - 5.80 x10E12/L 05/31/2025 8:08 AM [facility] Hemoglobin 15.5 13.3 - 17.5 g/dL 05/31/2025 8:08 AM [facility] Hematocrit 46.6 38.7 - 51.1 % 05/31/2025 8:08 AM [facility] MCV 85.3 80.0 - 98.0 fL 05/31/2025 8:08 AM [facility] MCH 28.4 26.7 - 33.6 pg 05/31/2025 8:08 AM [facility] MCHC 33.3 31.7 - 36.3 g/dL 05/31/2025 8:08 AM [facility] RDW-CV 15.1(H) 11.3 - 14.8 % 05/31/2025 8:08 AM [facility] Platelet Count 216 150 - 420 x10E9/L 05/31/2025 8:08 AM [facility] MPV 11.0 7.8 - 11.4 fL 05/31/2025 8:08 AM [facility] Blood BLOOD SPECIMEN / Unknown Lab Venipuncture / Unknown 05/31/2025 6:56 AM CDT 05/31/2025 7:31 AM CDT us Cristian Garcia MD LAB - HEMATOLOGY ORDERABLES F inal Result Performing Organization Address City/State/[facility] Co de Phone Number [facility] [address] [place] [address], [facility] [phone] * (ABNORMAL) RENAL FUNCTION PANEL (05/31/2025 6:56 AM CDT) BUN 14 7 - 26 mg/dL 05/31/2025 8:02 AM [facility] Creatinine 0.74 0.71 - 1.16 mg/dL 05/31/2025 8:02 AM [facility] Sodium 138 136 - 145 mmol/L 05/31/2025 8:02 AM [facility] Potassium 3.8 3.5 - 4.5 mmol/L 05/31/2025 8:02 AM [facility] Chloride 108(H) 98 - 107 mmol/L 05/31/2025 8:02 AM [facility] CO2 26 22 - 29 mmol/L 05/31/2025 8:02 AM [facility] Glucose 120(H) 70 - 99 mg/dL 05/31/2025 8:02 AM [facility] Albumin 4.0 3.4 - 5.0 g/dL 05/31/2025 8:02 AM [facility] Calcium 8.7 8.4 - 10.2 mg/dL 05/31/2025 8:02 AM [facility] Phosphorus 3.5 2.8 - 5.1 mg/dL 05/31/2025 8:02 AM [facility] Anion Gap 4(L) 6 - 16 05/31/2025 8:02 AM [facility] BUN/Creatinine Ratio 19 7 - 23 05/31/2025 8:02 AM [facility] Osmolality Calculated 288 275 - 295 mOsm/kg 05/31/2025 8:02 AM [facility] eGFR by CKD-EPI >90 >=90 mL/min/1.7 3 m2 05/31/2025 8:02 AM [facility] Comment:Estimated Glomerular Filtration Rate (eGFR) calculated using the CKD-EPI Creatinine Equation (2020), per the National Kidney Foundation and [place] Society of Nephrology recommendations. Blood BLOOD SPECIMEN / Unknown Lab Venipuncture / Unknown 05/31/2025 6:56 AM CDT 05/31/2025 7:31 AM CDT Cristian Garcia MD LAB - CHEMISTRY ORDERABLES Fi nal Result [address] [address], [place] [phone] * MAGNESIUM BLOOD (05/31/2025 6:56 AM CDT) Magnesium 1.9 1.6 - 2.6 mg/dL 05/31/2025 8:02 AM T [facility] Blood BLOOD SPECIMEN / Unknown Lab Venipuncture / Unknown 05/31/2025 6:56 AM CDT 05/31/2025 7:31 AM CDT Cristian Garcia MD LAB - CHEMISTRY ORDERABLES Fi nal Result [address] [address], [place] [phone] * GLUCOSE - POINT OF CARE (05/31/2025 6:14 AM CDT) Only the most recent of2 resultswithin the time period is included. [facility] Glucose WB/POC 98 70 - 99 mg/dL 05/31/2025 6:18 AM CDT [facility] Specimen Type Arterial/C apillary 05/31/2025 6:18 AM CDT [facility] Blood BLOOD SPECIMEN / Unknown 05/31/2025 6:14 AM CDT 05/31/2025 6:18 AM CDT Robb Wakefield MD LAB - POINT OF CARE ORDERA BLES Final Result [facility] [address] [place] [address], [facility] [phone] * HEPATITIS C RNA QUANTITATIVE (05/29/2025 7:04 AM CDT) [facility] Hepatitis C RNA PCR, Interp Not detected Not detected 06/01/2025 10:14 AM CDT [facility] Hepatitis C Quant by PCR, Log NA log IU/mL 06/01/2025 10:14 AM CDT [facility] Blood BLOOD SPECIMEN / Unknown Lab Venipuncture / Unknown 05/29/2025 7:04 AM CDT 05/29/2025 8:58 AM CDT Narrative [facility] - 06/01/2025 10:14 AM CDT The Hepatitis C viral (HCV) RNA analysis utilized a serum sample, real-time reverse jockey valet PCR, and is reported as Not Detected, [...] the isolation of HCV RNA with reverse jockey valet of genomic HCV RNA followed by real-time PCR in the presence of an unrelated RNA internal control. The internal control ensures that RNA is isolated, and that no general significant inhibitors of the RT-PCR process are present. The analysis was performed using a U.S. FDA approved test methodology Nahum gomez HCV. us Robb Wakefield MD LAB - CHEMISTRY ORDERABLES Final Result [facility] [address] [place] [address], [facility] [phone] * (ABNORMAL) HEMOGLOBIN A1C (05/29/2025 7:04 AM CDT) Hemoglobin A1c 6.1(H) <=5.6 % 05/29/2025 11:58 AM CDT [facility] Estimated Average Glucose 128 mg/dL 05/29/2025 11:58 AM CDT [facility] Comment: HbA1c Interpretation: Normal : < 5.7% Pre-diabetes: 5.7-6.4% Diabetes: Equal to or greater than 6.5% Test results diagnostic of diabetes should be repeated for confirmation. Treatment target values recommended by ADA and other clinical organizations should be used to evaluate metabolic control in patients. Reference: [place] Diabetes Association, Standards of Care in Diabetes [...] LAB - CHEMISTRY ORDERABLES Fi nal Result [facility] [address] [place] [address], [place] [phone] * MICROALB/CREAT RATIO URINE RANDOM PANEL (06/28/2024 6:31 AM CDT) Albumin Random Urine <5.0 Not Established ug/mL 06/28/2024 9:49 PM CDT [facility] Creatinine Urine 82.62 Not Established mg/dL 06/28/2024 9:49 PM CDT [facility] Urine Albumin/Creati nine Ratio <6 <30 mg/g 06/28/2024 9:49 PM CDT [facility] Albumin/Creati nine Ratio Urine See Comment <30 mg/g 06/28/2024 9:49 PM CDT [facility] Comment:Unable to calculate the Urine Albumin/Creatinine Ratio due to one or more analyte concentration(s) being outside the measuring limits of the instrument. Urine URINE SPECIMEN OBTAINED BY CLEAN CATCH PROCEDURE / Unknown Collection / Unknown 06/28/2024 6:31 AM CDT 06/28/2024 7:54 PM CDT us Robb Gomez MD LAB - URINE CHEMISTRY ORDERA BLES Final Result [address] [address], [place] [phone] * HIV-1 HIV-2 ANTIBODY + HIV P24 AG PANEL (06/06/2024 11:59 AM CDT) Pathologist [facility] HIV Antigen/Antibod y 1 & 2 Non-reacti ve Non-react khari 06/06/2024 12:58 PM CDT [facility] Comment:No Laboratory eviden ce of HIV infection. Blood BLOOD SPECIMEN / Unknown Lab Venipuncture / Unknown 06/06/2024 11:59 AM CDT 06/06/2024 12:07 PM CDT us Gina Burt MD LAB - CHEMISTRY ORDERABLES Final Result [facility] [address] [place] [address], [place] [phone] from Last 3 Months or Most Recently Relevant to Health Maintenance Additional Health Concerns Infection Onset Date Last Indicated 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 Insurance MEDICAID [facility] Advance Directives Documents on File Type Date Recorded Patient Radar Scientist Expl anation Adv Directive/Living Will/POA 08/13/2024 [...] 10:06 PM 10/01/2024 2:14 PM Care Teams Quarter Folder Relationship Specialty Start Date End Date Matthew Sorenson PA [address] [place] [address] PCP - General 02/02/22
[2025-08-31 08:35] VITALS: BP 149/97; PULSE 75; RESP 20; TEMP 36.6; O2SAT 96; BMI 33.0
[2025-08-31 08:48] LABS: Hematocrit 51.2 % (40.0-54.0); Hemoglobin 15.9 g/dL (14.0-18.0); Mean Corpuscular HGB Conc 31.1 g/dL (32-36); Mean Corpuscular Hemoglobin 29.6 pg (27.0-31.0); Mean Corpuscular Volume 95.2 fL (78.0-102.0); Platelet Count Result 169 K/mm3 (150-420); Red Blood Count 5.38 M/mm3 (4.70-6.10); White Blood Count 8.7 K/mm3 (4.8-10.8)
[2025-08-31 09:16] LABS: Alanine Aminotransferase 48 U/L (6-50); Albumin Level 4.6 g/dL (3.5-5.1); Alkaline Phosphatase 96 U/L (38-126); Anion Gap 12 mmol/L (4-12); Aspartate Amino Transferase 23 U/L (17-59); Bilirubin,Total 1.4 mg/dL (0.2-1.3); Blood Urea Nitrogen 17 mg/dL (9-20); Calcium 9.4 mg/dL (8.4-10.2); Carbon Dioxide 19 mmol/L (22-30); Chloride 107 mmol/L (98-107); Estimated CRCL calculation 134 ml/min; Estimated Glomerular Filt Rate > 60; Glucose 179 mg/dL (65-110); Osmolality Calculated 291 mOsm/kg (285-295); Potassium 4.2 mmol/L (3.4-5.0); Sodium 138 mmol/L (137-145); Total Protein 6.4 g/dL (6.3-8.2)
[2025-08-31 09:34] LABS: Immature Granulocyte Percent A 0.2 % (0.0-0.0); Lymphocytes Absolute Auto 4.78 K/mm3 (1.10-4.50); Nucleated Red Blood Cells Absolute Auto 0.00 K/mm3 (0.00-0.00); Nucleated Red Blood Cells Perc 0.0 % (0-0.0)
[2025-08-31] MEDS: ACETAMINOPHEN 325 MG TABLET 650 MG PO (09:46)
[2025-08-31] MEDS: FAMOTIDINE 20 MG TABLET PO (09:46)
[2025-08-31] MEDS: diphenhydrAMINE HCl CAP 25 MG CAPSULE PO (09:46)
[2025-08-31] MEDS: DENOSUMAB 120 MG/1.7 ML VIAL SUB-Q (09:57)
[2025-08-31] MEDS: DARATUMUMAB-HYALURONIDASE-FIHJ 1,800 MG-30,000 UNITS VIAL 15 ML SUB-Q (09:59)
== END 2025-08-31 10:09 | disposition home or self-care (01) ==
PROVIDERS: PCP Physician Assistant; Visit Provider Internal Medicine Hematology
DX: Z51.11 Encounter for antineoplastic chemotherapy (principal); C90.00 Multiple myeloma not having achieved remission
CPT/HCPCS: 36415; 80053; 85025; 85027; 96374; 96409; A9270; J0897; J8540; J9144

== ENCOUNTER 2025-09-14 08:23 | Outpatient (CLI) | payer OTHER, SELFPAY ==
[2025-09-14 08:49] LABS: Hematocrit 50.5 % (40.0-54.0); Hemoglobin 16.1 g/dL (14.0-18.0); Immature Granulocyte Percent A 0.2 % (0.0-0.0); Immature Platelet Fraction Pct 3.0 % (1.0-7.0); Lymphocytes Absolute Auto 3.84 K/mm3 (1.10-4.50); Mean Corpuscular HGB Conc 31.9 g/dL (32-36); Mean Corpuscular Hemoglobin 29.7 pg (27.0-31.0); Mean Corpuscular Volume 93.2 fL (78.0-102.0); Nucleated Red Blood Cells Absolute Auto 0.07 K/mm3 (0.00-0.00); Nucleated Red Blood Cells Perc 0.9 % (0-0.0); Platelet Count Result 202 K/mm3 (150-420); Red Blood Count 5.42 M/mm3 (4.70-6.10); White Blood Count 8.2 K/mm3 (4.8-10.8)
[2025-09-14 08:54] VITALS: BP 138/86; PULSE 80; RESP 16; TEMP 36.6; O2SAT 98; BMI 33.8
[2025-09-14] MEDS: ACETAMINOPHEN 325 MG TABLET 650 MG PO (09:30)
[2025-09-14] MEDS: diphenhydrAMINE HCl CAP 25 MG CAPSULE PO (09:30)
[2025-09-14] MEDS: FAMOTIDINE 20 MG TABLET PO (09:30)
[2025-09-14 09:37] LABS: Alanine Aminotransferase 50 U/L (6-50); Albumin Level 4.3 g/dL (3.5-5.1); Alkaline Phosphatase 88 U/L (38-126); Anion Gap 14 mmol/L (4-12); Aspartate Amino Transferase 47 U/L (17-59); Blood Urea Nitrogen 14 mg/dL (9-20); Calcium 8.7 mg/dL (8.4-10.2); Carbon Dioxide 12 mmol/L (22-30); Chloride 107 mmol/L (98-107); Estimated CRCL calculation 130 ml/min; Estimated Glomerular Filt Rate > 60; Glucose 249 mg/dL (65-110); Osmolality Calculated 284 mOsm/kg (285-295); Potassium 4.1 mmol/L (3.4-5.0); Sodium 133 mmol/L (137-145); Total Protein 6.7 g/dL (6.3-8.2)
[2025-09-14] MEDS: DARATUMUMAB-HYALURONIDASE-FIHJ 1,800 MG-30,000 UNITS VIAL 15 ML SUB-Q (09:47)
[2025-09-14 10:29] VITALS: BP 135/80; PULSE 80; RESP 14
--- NOTE | 2025-09-14 10:30 | PC.NURSE ---
Patient tolerated Daratumumab-hyaluronidase injection well. See MAR/Patient care notes.
[2025-09-14 17:41] LABS: Bilirubin,Total 0.6 mg/dL (0.2-1.3)
== END 2025-09-14 08:24 | disposition home or self-care (01) ==
PROVIDERS: PCP Physician Assistant; Visit Provider Internal Medicine Hematology
DX: Z51.11 Encounter for antineoplastic chemotherapy (principal); C90.00 Multiple myeloma not having achieved remission
CPT/HCPCS: 36415; 80053; 85025; 85055; 96401; A9270; J8540; J9144

== ENCOUNTER 2025-09-29 08:31 | Outpatient (CLI) | payer OTHER, SELFPAY ==
--- OUTSIDE RECORDS SUMMARY | 2025-02-19 10:37 | XMS_ITS | Encounter Summary ---
Author Organization [facility] Address [address] [facility] [facility] [place] [address] Care Team Providers Care Steam Crane Operator Name Role Phone Matthew Sorenson Primary Care Provider [phone] Jose Luis Brooks MD Unavailable [phone] Abelardo Presley MD Unavailable [phone] Bo Francisco MD Unavailable [phone] Angie Rogers MD Unavailable Katie Gutierrez PharmD Unavailable Unavailab le Jaja Rayo RN Unavailable Unavailable Abimbola Waters SPOOL WINDER-CHIEF TRANSFER AND PUMPHOUSE OPERATOR Unavailable [phone] Perri Dexter SPOOL WINDER-CHIEF TRANSFER AND PUMPHOUSE OPERATOR Unavailable [phone] Marilyn Bennett RN Unavailable Unavailable Erasmo Roberson RN Unavailable Unavailable Alexandra Cota RN Unavailable Unavailable Alda Braswell Unavailable Unavailable Lucia Sharif LCSW Unavailable Unavailab le Reason for Referral * (Routine) - Pending Review Specialty Diagnoses / Procedures Referred By Contac t Referred To Contact Procedures Follow up with provider Juan Valencia MD [address] [place] [address] Phone: tel: fax: Referral ID Status Reason Start Date Expiration Date V isits Requested Visits Authorized [id number] Pending Review 02/19/2025 02/19/2026 1 1 * Radiology Services (Routine) - Pending Review Specialty Diagnoses / Procedures Referred By Vikash winters Referred To Contact Diagnoses Hepatitis C virus infection without hepatic coma, unspecified chronicity History of multiple myeloma Procedures CT US Guided Needle Placement IR Perc Liver Biopsy Juan Valencia MD [address] [facility] [address] [place] [address] Phone: tel: fax: [facility] [address] [place] [address] Phone: tel: Referral ID Status Reason Start Date Expiration Date V isits Requested Visits Authorized [id number] Pending Review 02/19/2025 02/19/2026 1 1 Reason for Visit * Auth/Cert (Routine) Specialty Diagnoses / Procedures Referred By Vikash winters Referred To Contact Diagnoses Chronic hepatitis C without hepatic coma (HCC) Transaminitis Chronic hepatitis C without hepatic coma (HCC) [B18.2] Transaminitis [R74.01] Procedures DC US GUIDED NEEDLE PLACEMENT BIOPSY LIVER (NEEDLE/PERCUTANEOUS) Referral ID Status Reason Start Date Expiration Date Visits Re quested Visits Authorized [id number] 1 1 Encounter Details Date Type Department Care Team (Latest Contact Info) Description 02/19/2025 11:37 AM CDT Hospital Encounter [facility] [address] [place] [address] Juan Valencia MD [facility] [facility] 2L [place] [address] Interven Radiology Social History Tobacco Use Types Packs/Day Years Used Date Smoking Tobacco: Former Cigarettes 1.5 34.1 S tarted: 08/20/1991 Passive Smoke Exposure: Past [...] Recorded Patient Health Questionnaire-2 Score 0 09/22/2025 [facility] - [...] place to sleep or slept in a fdc (including now)? No 06/04/2024 Housing Stability Vital Sign Answer Obed e Recorded In the last 12 months, was t here a time when you were not able to pay the mortgage or rent on time? Yes 11/23/2024 In the past 12 months, how m any times have you moved where you were living? 0 11/23/2024 At any time in the past 12 m [facility], were you homeless or living in a fdc (including now)? No 11/23/2024 Sex and Gender Information Value Date Recorded Sex Assigned at Not on file Legal Sex Male 11:44 AM TUBING OILER Gender Identity Not on file Sexual Orientation [...] difficulty seeing? No 02/19/2025 1:20 PM AURET Richie Alejandro RN Does person have serious [...] Assessment Author No 02/19/2025 1:20 PM Richie Kurse RN * Does person have serious difficulty walking/climbing stairs? Answer Date of Assessment Author No 02/19/2025 1:20 PM CDT Alejandro, Richie W., RN * Does person have difficulty dressing/bathing? [...] things Not at all 09/22/2025 1:12 PM Laura Greene M A Feeling down, depressed, or hopeless Not at all 09/22/2025 1:12 PM Laura Greene M A Patient Health Questionnaire -2 Score 0 09/22/2025 1:12 PM Laura Greene M A * Question Answer Date of Assessment Author In the past 30 days, have yo u wished you were or wished you could go to sleep and not wake up? No 05/27/2025 11:35 PM CDT Darren Braswell RN In the past 30 days, have yo u actually had any thoughts about killing yourself? No 05/27/2025 11:35 PM CDT Darren Braswell RN documented as of this encounter Mental Status * Does person have difficulty concentrating/remembering/making decisions? Answer Entry Date Author No 02/19/2025 1:20 PM CDT Richie Alejandro RN documented in this encounter Progress Notes [...] Interventional Radiology Brief Post-Procedure Note Patient: Joselito Epstein Patrick Attending: Callum Guerrero MD Pediatrics Teacher: Seng Gaston MD Diagnosis/Indication: hx of hep [...] for the entire procedure. Callum Guerrero MD Cigar Head Puncher Vascular & Interventional Radiology 02/20/2025 5:30 AM documented in this encounter Miscellaneous Notes * Clinical References AVS - Richie Alejandro, RN - 02/19/2025 1:22 PM CDT Images from the original note were not included. [id number] Liver Biopsy A liver biopsy is when [...] naproxen. ?? Medicines for heart conditions ?? Rpzm-yuh-bqzyyed medicines ?? All prescription medicines ?? Illegal [...] belly Last Reviewed Date: 2023 00:00:00 ?? [id number] [employer]. All rights reserved. This information is not intended as a substitute for professional medical care. Always follow your healthcare professional's instructions. documented in this encounter Plan of Treatment Upcoming Encounters Date Type Department Care Team (Late st Contact Info) Description 11/24/2025 8:30 AM TUBING OILER Office Visit [facility] - Orthopedics [address] [place] [address], [place] [phone] Janice Lynn MD [address] [place] [phone] 02/18/2026 1:00 PM CDT Video Visit [facility] - Infectious Disease [address] [place] [address], [place] [address] Cristian Mcmillan MD [address] [place] [phone] documented as of this encounter Procedures Procedure [...] evaluation, please review the evaluation forms in [facility]. For details on monitored clinical parameters during the intra-service sedation time, please review the procedure nurse documentation in [facility]. > Dictated by Seng Gaston MD (Manager Molecular) 02/19/2025 12:59 PM ICallum MD have personally reviewed and interpreted this [...] response to care. Intra-service sedation start time [id number] hours and end time was 1236 hours during which I was present. Total physician intra-service sedation time was 30 minutes. For details on pre moderate sedation and post moderate sedation patient evaluation, please review the evaluation forms in [facility]. For details on monitored clinical parameters during the intra-service sedation time, please review the procedure nurse documentation in [facility]. > Dictated by Seng Gaston MD (Manager Molecular) 02/19/2025 12:59 PM ICallum MD have personally reviewed and interpreted this examination/study. > Interpreting Provider: Callum Guerrero MD on 02/24/2025 5:33 PM Juan Valencia MD CT ORDERABLES Final Result * PATHOLOGY TISSUE (02/19/2025 12:34 PM CDT) Case Report Surgical Pathology Report Case: [id number] Authorizing Provider: Juan Valnecia MD Collected: 02/19/2025 12:34 PM Ordering Location: [facility] Received: 02/19/2025 01:06 PM Pathologist: Sammi Escalante MD Specimen: Liver Needle Biopsy, liver bx 02/20/2025 3:50 PM CDT [facility] Final Diagnosis Liver, biopsy (A): - Chronic hepatitis with minimal-mild activity - Steatosis and lobular inflammation without ballooning - Cirrhosis, see comment 02/20/2025 3:50 PM CDT [facility] at 1550 CDT Microscopic Description [...] 8 (steatosis-1, inflammation-1, ballooning-0). 02/20/2025 3:50 PM [facility] Clinical History The patient is a 44-year-old man with history of hepatitis C infection and appearance of cirrhosis on diagnostic imaging. Operative procedure: Ultrasound-guided random core liver biopsy 02/20/2025 3:50 PM [facility] Gross Description The requisition and specimen(s) are identified with the patient's name, Joselito Nguyen. Received in formalin, specimen A, are two baldwin-pink needle cores, 1.7 and 1.0 cm, both 0.1 cm diameter, submitted in toto in cassette A1. IKD 02/20/2025 3:50 PM [facility] Pathologist Location at [facility] 02/20/2025 3:50 PM [facility] Disclaimer The performance characteristics of all immunohistochemical and indirect immunofluorescence stains (if any) cited in this report were determined by the Histopathology Laboratory of [facility]. Some of these tests were developed [...] attending (teaching) pathologist. 02/20/2025 3:50 PM CDT [facility] Collected By Balbir Rdz RN 3:50 PM CDT [facility] Embedded Images 02/20/2025 3:50 PM CDT [facility] Pathology/Cytolo gy NEEDLE BIOPSY OF LIVER / Unknown Collection / Unknown 02/19/2025 12:34 PM CDT 02/19/2025 1:06 PM CDT Comment:LIVER NEEDLE BIOPSY Juan Valencia MD LAB - PATHOLOGY/CYTOLOGY ORDER LISSETH Final Result [facility] [address] [phone] documented in this encounter Visit Diagnoses Diagnosis [...] documented as of this encounter Care Teams Steam Crane Operator Relationship Specialty Start Date End Date Matthew Sorenson PA [address] [place] [address] PCP - General 02/02/22 Jose Luis Brooks MD [address] [place] [address] Yard Crane Operator/Oncologis t Hematology and Oncology 08/29/24 05/27/25 Abelardo Presley MD [address] [place] [address] Hematology and Oncology 08/29/24 03/04/25 [place] [address] [place] [phone] Hematology and Oncology 08/29/24 03/04/25 [place] [address] [place] [phone] Physician Hematology and Oncology 08/29/24 03/04/25 Katie Gutierrez, PharmD 08/29/24 03/04/25 Jaja Rayo, RN Registered Nurse 08/29/24 03/04/25 Abimbola Waters APRN-CHIEF TRANSFER AND PUMPHOUSE OPERATOR [address] [place] [address] Nurse Practitioner Nurse Practitioner 08/29/24 03/04/25 Perri Dexter, DAYNA-CHIEF TRANSFER AND PUMPHOUSE OPERATOR [address] [place] [phone] Nurse Practitioner Nurse Practitioner 08/29/24 03/04/25 Marilyn Bennett, RN Coordinator 08/29/24 05/27/25 Erasmo Roberson, RN Registered Nurse 08/29/24 03/04/25 Alexandra Cota, RN Registered Nurse 08/29/24 03/04/25 Alda Braswell 08/29/24 03/04/25 Lucia Sharif LCSW Barrel Ribs Solderer 08/29/24 03/04/25 documented as of this encounter
--- OUTSIDE RECORDS SUMMARY | 2025-09-29 08:41 | XMS_ITS ---
Author Organization [facility] Address [address] [place] [address] Care Team Providers Care Evaporator Repairer Name Role Phone Matthew Sorenson Primary Care Provider [phone] Active Problems Problem Noted Date Diagnosed Date [...]
--- OUTSIDE RECORDS SUMMARY | 2025-09-29 08:41 | XMS_ITS | Encounter Summary ---
Author Organization [facility] Address [address] [place] [address] Care Team Providers Care Float Tender Name Role Phone Matthew Sorenson Primary Care Provider [phone] Jose Luis Brooks MD Unavailable [phone] Abelardo Presley MD Unavailable [phone] Bo Francisco MD Unavailable [phone] Angie Rogers MD Unavailable Katie Gutierrez PharmD Unavailable Unavailab le Jaja Rayo RN Unavailable Unavailable Abimbola Waters ORDERLY-TEST DESK OPERATOR Unavailable [phone] Perri Dexter ORDERLY-TEST DESK OPERATOR Unavailable [phone] Marilyn Bennett RN Unavailable Unavailable Erasmo Roberson RN Unavailable Unavailable Alexandra Cota RN Unavailable Unavailable Alda Brawsell Unavailable Unavailable Lucia Sharif LCSW Unavailable Unavailab le Reason for Visit * Reason Onset Date Comments MEDICATION REFILL 10/20/2024 Encounter Details Date Type Department Care Team (Late st Contact Info) Description 10/20/2024 Refill [facility] - Hematology/Oncology [address] [place] [address] Jose Luis Brooks MD [address] [facility] [place] [address] MEDICATION REFILL Social History Tobacco Use Types Packs/Day Years Used Date Smoking Tobacco: Every Day Cigarettes 1.5 34.1 Started: 08/20/1991 Smokeless Tobacco: Never Alcohol Use [...] in the past 12 m [facility], were you homeless or living in a care home (including now)? 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 Answer Date of Assessment Author No 09/05/2024 9:00 AM Ruthy Sam RN * Is person blind or have serious difficulty seeing? Answer Date of Assessment Author No 09/05/2024 9:00 AM PRECISION THREAD GRINDER OPERATOR Ruthy Mueller RN * Does person have serious difficulty walking/climbing stairs? Answer Date of Assessment Author No 09/05/2024 9:00 AM PRECISION THREAD GRINDER OPERATOR Ruthy Mueller RN * Does person have [...] st Contact Info) Description 11/24/2025 8:30 AM PRECISION THREAD GRINDER OPERATOR Office Visit [facility] - Orthopedics [facility], [place] [address] Janice Lynn MD [address] [place] [phone] 02/18/2026 1:00 PM CDT Video Visit [facility] - Infectious Disease [address] [place] [address], [place] [address] Cristian Mcmillan MD [address] [place] [phone] documented as of this encounter Visit Diagnoses Not on filedocumented in this encounter Additional Health Concerns Infection Onset Date Last Indicated Resolved Time 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 CDIFF Under Investigation 01/13/2025 01/13/2025 7:19 PM CDT COVID-19 Under Investigation 01/13/2025 01/13/2025 01/13/2025 4:01 PM CDT COVID-19 Under Investigation 02/12/2025 02/12/2025 02/12/2025 4:07 PM CDT documented as of this encounter Care Teams Float Tender Relationship Specialty Start Date End Date Matthew Sorenson PA [address] [place] [address] PCP - General 02/02/22 Jose Luis Brooks MD [address] [place] [id number] Assembling Motor Builder/Oncologis t Hematology and Oncology 08/29/24 05/27/25 Abelardo rPesley MD [address] [place] [id number] Hematology and Oncology 08/29/24 03/04/25 Bo Francisco MD [address] [place] [phone] Hematology and Oncology 08/29/24 03/04/25 Angie Rogers MD [address] [place] [phone] Physician Hematology and Oncology 08/29/24 03/04/25 Katie Gutierrez, PharmD 08/29/24 03/04/25 Jaja Rayo, RN Registered Nurse 08/29/24 03/04/25 Abimbola Waters APRN-CNP [address] [place] [address] Nurse Practitioner Nurse Practitioner 08/29/24 03/04/25 Perri Dexter APRN-CNP [address] [place] [address] Nurse Practitioner Nurse Practitioner 08/29/24 03/04/25 Marilyn Bennett, RN Coordinator 08/29/24 05/27/25 Erasmo Roberson, RN Registered Nurse 08/29/24 03/04/25 Alexandra Cota, RN Registered Nurse 08/29/24 03/04/25 Alda Braswell 08/29/24 03/04/25 Lucia Sharif, DISPLAY MECHANIC Metal Ceiling Hanger 08/29/24 03/04/25 documented as of this encounter
--- OUTSIDE RECORDS SUMMARY | 2025-09-29 08:41 | XMS_ITS | Clinical Summary ---
Author Organization [facility] Address [address] [address] Phone Care Team Providers Care Station Examiner Name Role Phone Matthew Sorenson Primary Care Provider [phone] Allergies Active Allergy Reactions Criticality Noted Date Comments Morphine Itching 06/01/2025 Encounters Date Type Department Care Team Description 07/02/2025 Travel from Last 3 Months Family History [...] 2023 Influenza Immunization (#1) 2025 SARS-COV-2 Immunization (2024- season) 2025 Respiratory Syncytial Virus (RSV) Immunization [...] Insurance MEDICAID [employer] Care Teams Station Examiner Relationship Specialty Start Date End Date Matthew Sorenson PAC [address] [place] [address] PCP - General Physician Flavoring Maker 04/27/25
--- OUTSIDE RECORDS SUMMARY | 2025-09-29 08:41 | XMS_ITS | Clinical Summary ---
Author Organization 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
--- OUTSIDE RECORDS SUMMARY | 2025-09-29 08:41 | XMS_ITS | Clinical Summary ---
Author Organization [facility] [employer] Address [address] [facility] [place] [address] Care Team Providers Care Behavioral Assistant Name Role Phone Matthew Sorenson Primary Care Provider [phone] Source Comments [facility] [employer],non-owned Affiliates and Associated Physician Practices is amultiple site organization consisting of ambulatory clinics and hospital sitesin [place], [place], [place] and [place]. This disclosure is being madepursuant to the Care Everywhere program and may not contain all information available regarding this patient. Last updated 18.[facility] [employer] Allergies Active Allergy Reactions Criticality Noted Date [...] verio strips, Reported on 08/18/2025 Continuous Glucose Risk Engineer (Dexcom G7 Risk Engineer) SONIA as directed Act khari Continuous Glucose [...] BY ORAL ROUTE FOR 90 DAYS. 12/26/19 Active Jardiance 25 MG tablet Take 1 tablet every day by oral route for 90 days. 01/27/20 Active fexofenadine (Joceline) 180 MG tablet Take 1 (one) tablet by mouth once daily Activ e TRUEplus 5-Bevel Pen [place] 31G X 6 MM [facility] [place] TO INJECT INSULIN 3 TIMES DAILY 11/20/19 Active ondansetron (Zofran) 8 MG tablet Take 1 (one) tablet by mouth every 8 hours as needed Active lenalidomide (Revlimid) 10 MG capsuleIndicati ons:Multiple myeloma, remission status unspecified (HCC) Take 1 (one) capsule by mouth once daily for 28 days 28 capsule 02/28/20 Active acyclovir (Zovirax) 400 MG tablet Take 1 (one) tablet by mouth 2 times daily 60 tablet 5 03/02/20 Active Hospital, Clinic, or Other Facility Administered Medication Ordered Dose Route Frequency Start Date End Date Status triamcinolone acetonide (Kenalog-40) injection 20 mgIndications:Ulnar tunnel syndrome, right 20 mg IX ONCE 09/22/2025 09/22/2025 Ended lidocaine PF (Xylocaine MPF) 1 % injectionIndications :Ulnar tunnel syndrome, right INFILTRATION ONCE 09/22/2025 09/22/2025 Ended triamcinolone acetonide (Kenalog-40) injection 10 mgIndications:Trigge r finger, right ring finger 10 mg INFILTRATION ONCE 09/22/2025 09/22/2025 Ended lidocaine PF (Xylocaine MPF) 1 % injectionIndications :Trigger finger, right ring finger INFILTRATION ONCE 09/22/2025 09/22/2025 Ended Active Problems Problem Noted Date Diagnosed Date [...] Encounters Date Type Department Care Team Description 09/22/2025 1:00 PM PRORATION CLERK Office Visit [facility] - Infectious Disease [address] [facility] [place] [address] Cristian Mcmillan MD MRSA bacteremia (Primary Dx); Chronic hepatitis C without hepatic coma (HCC); Acute on chronic low back pain; Orthopedic hardware present; Multiple myeloma not having achieved remission (HCC); Chest wall abscess; History of illicit drug use; Hepatic cirrhosis due to chronic hepatitis C infection (HCC); Routine health maintenance 09/22/2025 11:03 AM PRORATION CLERK - 09/22/2025 11:59 PM PRORATION CLERK Hospital Encounter [facility] [address] [place] [place] [address] Janice Lynn MD Discharge Disposition: Home or Self Care 09/22/2025 11:03 AM PRORATION CLERK - 09/22/2025 11:59 PM PRORATION CLERK Hospital Encounter [facility] [address] [facility] [place] [address] Janice Lynn MD Discharge Disposition: Home or Self Care 09/22/2025 10:15 AM PRORATION CLERK Office Visit [facility] - Orthopedics [address] [place] [phone] Janice Lynn MD Pain of right hand (Primary Dx); Ulnar tunnel syndrome, right; Trigger finger, right ring finger 09/22/2025 Travel 09/20/2025 Refill [facility] [address] [place] [address] Perri Dexter APRN-CNP Refill Request 09/07/2025 Telephone [facility] - Neurology [address] [place] [phone] Mary Vargas APRN-CNP Referral 08/18/2025 1:00 PM CDT Office Visit [facility] - Neurology [address] [place] [phone] Mary Vargas APRN-CNP Carpal tunnel syndrome of right wrist (Primary Dx); Cubital tunnel syndrome on right 08/18/2025 Travel from Last 3 Months Family History [...] Recorded Patient Health Questionnaire-2 Score 0 09/22/2025 [facility] - [...] any time in the past 12 [facility], were you homeless or living in a snf (including now)? No 11/23/2024 Sex and Gender Information Value Date Recorded Sex Assigned at Not on file Legal Sex Male 11:44 AM PRORATION CLERK Gender Identity Not on file Sexual Orientation Not on file Last Filed Vital Signs Vital Sign Reading Time Taken Comments Blood Pressure 110/76 09/22/2025 1:12 PM PRORATION CLERK Pulse 75 09/22/2025 1:12 PM PRORATION CLERK Temperature 36.5 C (97.7 F) 09/22/2025 1:12 PM PRORATION CLERK Respiratory Rate 16 05/31/2025 9:06 AM CDT Oxygen Saturation 95% 09/22/2025 1:12 PM PRORATION CLERK Inhaled Oxygen Concentration 21% 02/19/2025 1 :30 PM CDT Weight 116.2 kg (256 lb 3.2 oz) 09/22/2025 1:12 PM PRORATION CLERK Height 182.9 cm (6') 09/22/2025 1:12 PM PRORATION CLERK Body Mass Index 34.75 09/22/2025 1:12 PM PRORATION CLERK Plan of Treatment Upcoming Encounters Date Type Department Care Team (Late st Contact Info) Description 11/24/2025 8:30 AM PRORATION CLERK Office Visit [facility] - Orthopedics [address] [place] [phone] Janice Lynn MD [address] [place] [phone] 02/18/2026 1:00 PM CDT Video Visit [facility] - Infectious Disease [address] [place] [phone] Cristian Mcmillan MD [address] [place] [phone] Health Maintenance Due Date Last Done Comments [...] 1997 ZOSTER VACCINE (1 of 2) 1997 DIABETES RETINOPATHY SCREENING 06/28/2024 DIABETES-FOOT EXAM WITH MONOFILAMENT 06/28/2024 DIABETES - URINE PROTEIN SCREENING 10/29/2024 06/28/2024 INFLUENZA VACCINE (#1) 2025 DIABETES-HGB A1C 11/29/2025 05/29/2025, 06/28/2024 DIABETES-SERUM CREATININE 05/31/20262024, 05/30/2025, 05/29/2025, Additional history exists HIV SCREENING Completed 06/06/2024 DEPRESSION SCREENING Completed 11/20/2024, 08/12/20 HEPATITIS C SCREENING Completed 09/22/2025 , 05/29/2025, 05/27/2025, Additional history exists HIB VACCINE Aged Out [...] this topic Medical Devices Implanted Type Area Peace Officer Device Identifier Shelf Expiration Date Model / Serial / Lot Kit Spnl 5.8mm Spinejack Implanted:Qty: 1 on 07/22/2024 by Arya Rm MD at [facility] N/A: Spine Lumbar [employer] 10/28/2024 [id number] / / [id number] Kit Bone Cmnt Vertaplex Hv Autoplex Wo Implanted:Qty: 1 on 07/22/2024 by Arya Rm MD at [facility] N/A: Spine Lumbar [employer] 05/29/2025 [id number] / / [id number] Port Implinfn Powerport Clrvu Argd Nya Implanted:Qty: 1 on 08/20/2024 by Vic Callahan MD at [facility] Right: Chest Wall [employer] 08/28/2025 [id number] / / [id number] Mixer Bone Cmnt Kyphon C20gm Ll Fit Implanted:Qty: 1 on 12/02/2024 by Arya Rm MD at [facility] N/A: Spine Lumbar Kyphon Inc [id number] / / Cmnt Bone Hv-R Kphx Mxr Grad Mrk Dspns Implanted:Qty: 1 on 12/02/2024 by Arya Rm MD at [facility] N/A: Spine Lumbar Kyphon Inc [id number] / / Graft Bone Grftn Dbm Plif 10x2.5cm Implanted:Qty: 1 on 12/02/2024 by Arya Rm MD at [facility] N/A: Spine Lumbar Osteotech Inc [id number] / / Ezekiel Spnl 500mm 5.5mm Cd Hzn Str Ti Ln Cp Implanted:Qty: 1 on 12/02/2024 by Arya Rm MD at [facility] N/A: Spine Lumbar Medtronic Inc [id number] / / Graft Bone Grftn Dbm Aspt 5x2.5cm Post Implanted:Qty: 1 on 12/02/2024 by Arya Rm MD at [facility] N/A: Spine Lumbar Medtronic Inc [id number] / / Screw Set Ti Spnl Brk Off Cd Hzn Nonster Implanted:Qty: 8 on 12/02/2024 by Arya Rm MD at [facility] N/A: Spine Lumbar Medtronic Inc [id number] / / Screw 7.5mm 55mm Ma Spne Solera Cd Hzn Implanted:Qty: 2 on 12/02/2024 by Arya Rm MD at [facility] N/A: Spine Lumbar Medtronic Inc [id number] / / Screw 7.5mm 50mm Ma Spne Solera Cd Hzn Implanted:Qty: 6 on 12/02/2024 by Arya Rm MD at [facility] Medtronic Inc [id number] / / Slnt Dura Duraseal Pg Trilysine Amine 5 Implanted:Qty: 1 on 12/02/2024 by Arya Rm MD at [facility] N/A: Spine Lumbar Integra [employer]. Thang / / Explanted Type Area Peace Officer Device Identifier Shelf Expiration Date Model / Serial / Lot Kit Osteocool Srg 10ga Bone Acc Explanted:Qty: 2 on 07/22/2024 by Arya Rm MD at [facility] N/A: Spine Lumbar Medtronic Inc [id number] / / [id number] Description:Access device, n ot an implant. No other options in system Probe 17ga 20mm Rf Eltx Osteocool 2mm Explanted:Qty: 1 on 07/22/2024 by Arya Rm MD at [facility] N/A: Spine Lumbar Medtronic Inc 03/26/2027 [id number] / / [id number] Description:Access device, n ot an implant. No other options in system Procedures Procedure Name Priority Date/Time Associated Diagnosis Comments XR FOREARM RIGHT 2VW OR MORE Routine 09/22/2025 11:15 AM PRORATION CLERK Pain of right hand XR HAND RIGHT 3VW OR MORE Routine 09/22/2025 11:14 AM PRORATION CLERK Pain of right hand RENAL FUNCTION PANEL AM Draw 05/31/2025 6:56 AM CDT Multiple myeloma, remission status unspecified (HCC) HEPATITIS C RNA QUANTITATIVE Routine 05/29/2025 7:04 AM CDT HEMOGLOBIN A1C Routine 05/29/2025 7:04 AM CDT Multiple myeloma, remission status unspecified (HCC) MICROALB/CREAT RATIO URINE RANDOM PANEL Routine 06/28/2024 6:31 AM CDT Hyperglycemia HIV-1 HIV-2 ANTIBODY + HIV P24 AG PANEL STAT 06/06/2024 11:59 AM CDT from Last 3 Months or Most Recently Relevant to Health Maintenance Results * XR Forearm Right 2Vw or More (09/22/2025 11:15 AM PRORATION CLERK) Anatomical Region Laterality Modality Upper Extremity Radiographic Lily ging 09/22/2025 11:1 6 AM PRORATION CLERK Impressions 09/22/2025 11:35 AM PRORATION CLERK IMPRESSION: No acute radial or ulnar fracture identified. Report dictated by Dano Francois MD, (medical resident). > Dictated by Motor Expert IAlthea MD have personally reviewed and interpreted this examination/study. > Interpreting Provider: Althea Hills MD on 09/22/2025 11:35 AM Narrative 09/22/2025 11:35 AM PRORATION CLERK PROCEDURE: XR FOREARM RIGHT 2VW OR MORE, DATE/TIME OF EXAM: 09/22/2025 11:15 AM, LOCATION [facility] INDICATION: M79.641: Pain of right hand ADDITIONAL CLINICAL INFORMATION: Ordering Provider Reason For Exam: hx MM Technologist Note: Additional: COMPARISON: None. FINDINGS: The radius and ulna are intact without evidence of acute fracture. Bone density and texture are normal. No soft tissue swelling is present. Procedure Note Althea Hills MD - 09/22/2025 PROCEDURE: XR FOREARM RIGHT 2VW OR MORE, DATE/TIME OF EXAM: 09/22/2025 11:15 AM, LOCATION [facility] INDICATION: M79.641: Pain of right hand ADDITIONAL CLINICAL INFORMATION: Ordering Provider Reason For Exam: hx MM Technologist Note: Additional: COMPARISON: None. FINDINGS: The radius and ulna are intact without evidence of acute fracture. Bone density and texture are normal. No soft tissue swelling is present. IMPRESSION: No acute radial or ulnar fracture identified. Report dictated by Dano Francois MD, (medical resident). > Dictated by Motor Expert IAlthea MD have personally reviewed and interpreted this examination/study. > Interpreting Provider: Althea Hills MD on 09/22/2025 11:35 AM us Janice Lynn MD DIAGNOSTIC IMAGING ORDERABLES F inal Result * XR Hand Right 3Vw or More (09/22/2025 11:14 AM PRORATION CLERK) Anatomical Region Laterality Modality Wrist / Hand Radiographic Lily ging 09/22/2025 11:1 5 AM PRORATION CLERK Impressions 09/22/2025 11:42 AM PRORATION CLERK IMPRESSION: No acute fracture or dislocation identified. Report dictated by Dano Francois MD, (medical resident). > Dictated by Motor Expert I, Althea Hills MD have personally reviewed and interpreted this examination/study. > Interpreting Provider: Althea Hills MD on 09/22/2025 11:42 AM Narrative 09/22/2025 11:42 AM PRORATION CLERK PROCEDURE: XR HAND RIGHT 3VW OR MORE, DATE/TIME OF EXAM: 09/22/2025 11:15 AM, LOCATION [facility] INDICATION: M79.641: Pain of right hand ADDITIONAL CLINICAL INFORMATION: Ordering Provider Reason For Exam: hx MM Technologist Note: Additional: COMPARISON: 09/03/2024 FINDINGS: The osseous structures are intact and well aligned without acute fracture or dislocation. The joint spaces are preserved. Bone density and texture are normal. No soft tissue swelling is present. Procedure Note Althea Hills MD - 09/22/2025 PROCEDURE: XR HAND RIGHT 3VW OR MORE, DATE/TIME OF EXAM: 1:15 AM, LOCATION [facility] INDICATION: M79.641: Pain of right hand ADDITIONAL CLINICAL INFORMATION: Ordering Provider Reason For Exam: hx MM Technologist Note: Additional: COMPARISON: 09/03/2024 FINDINGS: The osseous structures are intact and well aligned without acutefracture or dislocation. The joint spaces are preserved. Bone density and texture are normal. No soft tissue swelling is present. IMPRESSION: No acute fracture or dislocation identified. Report dictated by Dano Francois MD, (medical resident). > Dictated by Motor Expert I, Althea Hills MD have personally reviewed and interpreted this examination/study. > Interpreting Provider: Althea Hills MD on 09/22/2025 11:42 AM us Janice Lynn MD DIAGNOSTIC IMAGING ORDERABLES F inal Result * (ABNORMAL) RENAL FUNCTION PANEL (05/31/2025 6:56 AM [facility]) BUN 14 7 - 26 mg/dL 05/31/2025 8:02 AM [facility] Creatinine 0.74 0.71 - 1.16 mg/dL 05/31/2025 8:02 AM [facility] Sodium 138 136 - 145 mmol/L 05/31/2025 8:02 AM [facility] Potassium 3.8 3.5 - 4.5 mmol/L 05/31/2025 8:02 AM [facility] Chloride 108(H) 98 - 107 mmol/L 05/31/2025 8:02 AM [facility] CO2 26 22 - 29 mmol/L 05/31/2025 8:02 AM [facility] Glucose 120(H) 70 - 99 mg/dL 05/31/2025 8:02 AM [facility] Albumin 4.0 3.4 - 5.0 g/dL 05/31/2025 8:02 AM [facility] Calcium 8.7 8.4 - 10.2 mg/dL 05/31/2025 8:02 AM [facility] Phosphorus 3.5 2.8 - 5.1 mg/dL 05/31/2025 8:02 AM [facility] Anion Gap 4(L) 6 - 16 05/31/2025 8:02 AM [facility] BUN/Creatinine Ratio 19 7 - 23 05/31/2025 8:02 AM [facility] Osmolality Calculated 288 275 - 295 mOsm/kg 05/31/2025 8:02 AM [facility] eGFR by CKD-EPI >90 >=90 mL/min/1.7 3 m2 05/31/2025 8:02 AM [facility] Comment:Estimated Glomerular Filtration Rate (eGFR) calculated using the CKD-EPI Creatinine Equation (2020), per the National Kidney Foundation and [place] Society of Nephrology recommendations. Blood BLOOD SPECIMEN / Unknown Lab Venipuncture / Unknown 05/31/2025 6:56 AM CDT 05/31/2025 7:31 AM CDT Cristian Garcia MD LAB - CHEMISTRY ORDERABLES Fi nal Result [address] [address], [facility] [phone] * HEPATITIS C RNA QUANTITATIVE (05/29/2025 7:04 AM CDT) Pathologist [facility] Hepatitis C RNA PCR, Interp Not detected Not detected 06/01/2025 10:14 AM CDT [facility] Hepatitis C Quant by PCR, Log NA log IU/mL 06/01/2025 10:14 AM CDT [facility] Blood BLOOD SPECIMEN / Unknown Lab Venipuncture / Unknown 05/29/2025 7:04 AM CDT 05/29/2025 8:58 AM CDT Narrative [facility] - 06/01/2025 10:14 AM CDT The Hepatitis C viral (HCV) RNA analysis utilized a serum sample, real-time reverse project engineering director PCR, and is reported as Not Detected, [...] the isolation of HCV RNA with reverse project engineering director of genomic HCV RNA followed by real-time PCR in the presence of an unrelated RNA internal control. The internal control ensures that RNA is isolated, and that no general significant inhibitors of the RT-PCR process are present. The analysis was performed using a U.S. FDA approved test methodology Nahum gomez HCV. Robb Wakefield MD LAB - CHEMISTRY ORDERABLES Final Result [facility] [address] [place] [address], [facility] [phone] * (ABNORMAL) HEMOGLOBIN A1C (05/29/2025 7:04 AM CDT) Hemoglobin A1c 6.1(H) <=5.6 % 05/29/2025 11:58 AM CDT [facility] Estimated Average Glucose 128 mg/dL 05/29/2025 11:58 AM CDT [facility] Comment: HbA1c Interpretation: Normal : < 5.7% Pre-diabetes: 5.7-6.4% Diabetes: Equal to or greater than 6.5% Test results diagnostic of diabetes should be repeated for confirmation. Treatment target values recommended by ADA and other clinical organizations should be used to evaluate metabolic control in patients. Reference: [place] Diabetes Association, Standards of Care in Diabetes [...] ORDERABLES Fi nal Result [facility] [address] [place] [address], [place] [phone] * MICROALB/CREAT RATIO URINE RANDOM PANEL (06/28/2024 6:31 AM CDT) Albumin Random Urine <5.0 Not Established ug/mL 06/28/2024 9:49 PM CDT [facility] Creatinine Urine 82.62 Not Established mg/dL 06/28/2024 9:49 PM CDT [facility] Urine Albumin/Creati nine Ratio <6 <30 mg/g 06/28/2024 9:49 PM CDT [facility] Albumin/Creati nine Ratio Urine See Comment <30 mg/g 06/28/2024 9:49 PM CDT [facility] Comment:Unable to calculate the Urine Albumin/Creatinine Ratio due to one or more analyte concentration(s) being outside the measuring limits of the instrument. Urine URINE SPECIMEN OBTAINED BY CLEAN CATCH PROCEDURE / Unknown Collection / Unknown 06/28/2024 6:31 AM CDT 06/28/2024 7:54 PM CDT us Robb Gomez MD LAB - URINE CHEMISTRY ORDERA BLES Final Result [address] [address], [place] [phone] * HIV-1 HIV-2 ANTIBODY + HIV P24 AG PANEL (06/06/2024 11:59 AM CDT) HIV Antigen/Antibod y 1 & 2 Non-reacti ve Non-react khari 06/06/2024 12:58 PM CDT [facility] Comment:No Laboratory eviden ce of HIV infection. Blood BLOOD SPECIMEN / Unknown Lab Venipuncture / Unknown 06/06/2024 11:59 AM CDT 06/06/2024 12:07 PM CDT us Gina Burt MD LAB - CHEMISTRY ORDERABLES Final Result Performing Organization Address City/[facility]/ZIP Co de Phone Number [address] [address], [place] [phone] from Last 3 Months or Most Recently Relevant to Health Maintenance Additional Health Concerns Infection Onset Date Last Indicated 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 Insurance [facility] Advance Directives Documents on File Type Date Recorded Patient Typewriter Assembler Expl anation Adv Directive/Living Will/POA 08/13/2024 1:30 [...] 10:06 PM 10/01/2024 2:14 PM Care Teams Behavioral Assistant Relationship Specialty Start Date End Date Matthew Sorenson PA [address] [place] [address] PCP - General 02/02/22
--- OUTSIDE RECORDS SUMMARY | 2025-09-29 08:41 | XMS_ITS | Encounter Summary ---
Author Organization [facility] Address [address] [facility] [address] Care Team Providers Care Fish Bait Picker Name Role Phone Matthew Sorenson Primary Care Provider [phone] Jose Luis Brooks MD Unavailable [phone] Abelardo Presley MD Unavailable [phone] Bo Francisco MD Unavailable [phone] Angie Rogers MD Unavailable Katie Gutierrez PharmD Unavailable Unavailab le Jaja Rayo RN Unavailable Unavailable Abimbola Waters NEUROLOGY NURSE-HI LIFT OPERATOR Unavailable [phone] Perri Dexter NEUROLOGY NURSE-HI LIFT OPERATOR Unavailable [phone] Marilyn Bennett RN Unavailable Unavailable Erasmo Roberson RN Unavailable Unavailable Alexandra Cota RN Unavailable Unavailable Alda Braswell Unavailable Unavailable Lucia Sharif LCSW Unavailable Unavailab le Reason for Visit * Reason Onset Date Comments MEDICATION REFILL 10/20/2024 Encounter Details Date Type Department Care Team (Late st Contact Info) Description 10/20/2024 Refill [facility] [address] [place] [address] Gina Denton MD [address] [place] [address] MEDICATION REFILL Social History Tobacco [...] Recorded Patient Health Questionnaire-2 Score 1 08/12/2024 [facility] [...] on file Legal Sex Male 11:44 AM MACHINE CLOTH TRIMMER Gender Identity Not on file Sexual Orientation [...] st Contact Info) Description 11/24/2025 8:30 AM MACHINE CLOTH TRIMMER Office Visit [facility] [place] [address] Janice Lynn MD [address] [place] [phone] 02/18/2026 1:00 PM CDT Video Visit [facility] - Infectious Disease [address] [place] [phone] Cristian Mcmillan MD [address] [place] [phone] documented as of this encounter Visit Diagnoses Not on filedocumented in this encounter Additional Health Concerns Infection Onset Date Last Indicated Resolved Time 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 CDIFF Under Investigation 01/13/2025 01/13/2025 7:19 PM CDT COVID-19 Under Investigation 01/13/2025 01/13/2025 01/13/2025 4:01 PM CDT COVID-19 Under Investigation 02/12/2025 02/12/2025 02/12/2025 4:07 PM CDT documented as of this encounter Care Teams Fish Bait Picker Relationship Specialty Start Date End Date Matthew Sorenson PA [address] [place] [address] PCP - General 02/02/22 Jose Luis Brooks MD [facility] [place] [address] Linen Supervisor/Oncologis t Hematology and Oncology 08/29/24 05/27/25 Abelardo Presley MD [address] [place] [address] Hematology and Oncology 08/29/24 03/04/25 Bo Francisco MD [address] [place] [phone] Hematology and Oncology 08/29/24 03/04/25 Angie Rogers MD [address] [place] [phone] Physician Hematology and Oncology 08/29/24 03/04/25 Katie Gutierrez, PharmD 08/29/24 03/04/25 Jaja Rayo, RN Registered Nurse 08/29/24 03/04/25 Abimbola Waters APRN-CNP [address] [place] [address] Nurse Practitioner Nurse Practitioner 08/29/24 03/04/25 Perri Dexter APRN-CNP [address] [place] [address] Nurse Practitioner Nurse Practitioner 08/29/24 03/04/25 Marilyn Bennett, LOLI Coordinator 08/29/24 05/27/25 Erasmo Roberson, RN Registered Nurse 08/29/24 03/04/25 Alexandra Cota RN Registered Nurse 08/29/24 03/04/25 Alda Braswell 08/29/24 03/04/25 Lucia Sharif LCSW Flatwork Catcher 08/29/24 03/04/25 documented as of this encounter
[2025-09-29 09:16] LABS: Hematocrit 47.5 % (40.0-54.0); Hemoglobin 15.7 g/dL (14.0-18.0); Immature Granulocyte Percent A 0.4 % (0.0-0.0); Lymphocytes Absolute Auto 4.24 K/mm3 (1.10-4.50); Mean Corpuscular HGB Conc 33.1 g/dL (32-36); Mean Corpuscular Hemoglobin 29.8 pg (27.0-31.0); Mean Corpuscular Volume 90.3 fL (78.0-102.0); Nucleated Red Blood Cells Absolute Auto 0.00 K/mm3 (0.00-0.00); Nucleated Red Blood Cells Perc 0.0 % (0-0.0); Platelet Count Result 191 K/mm3 (150-420); Red Blood Count 5.26 M/mm3 (4.70-6.10); White Blood Count 9.1 K/mm3 (4.8-10.8)
[2025-09-29 09:17] VITALS: BP 136/78; PULSE 68; RESP 14; TEMP 36.6; O2SAT 98; BMI 33.5
[2025-09-29] MEDS: FAMOTIDINE 20 MG TABLET PO (09:25)
[2025-09-29] MEDS: ACETAMINOPHEN 325 MG TABLET 650 MG PO (09:25)
[2025-09-29] MEDS: diphenhydrAMINE HCl CAP 25 MG CAPSULE PO (09:25)
[2025-09-29 09:28] LABS: Alanine Aminotransferase 24 U/L (6-50); Albumin Level 4.5 g/dL (3.5-5.1); Alkaline Phosphatase 86 U/L (38-126); Anion Gap 11 mmol/L (4-12); Aspartate Amino Transferase 18 U/L (17-59); Bilirubin,Total 0.4 mg/dL (0.2-1.3); Blood Urea Nitrogen 19 mg/dL (9-20); Calcium 8.9 mg/dL (8.4-10.2); Carbon Dioxide 24 mmol/L (22-30); Chloride 105 mmol/L (98-107); Estimated CRCL calculation 136 ml/min; Estimated Glomerular Filt Rate > 60; Glucose 196 mg/dL (65-110); Osmolality Calculated 297 mOsm/kg (285-295); Potassium 4.1 mmol/L (3.4-5.0); Sodium 140 mmol/L (137-145); Total Protein 6.6 g/dL (6.3-8.2)
[2025-09-29] MEDS: DARATUMUMAB-HYALURONIDASE-FIHJ 1,800 MG-30,000 UNITS VIAL 15 ML SUB-Q (09:45)
[2025-09-29 10:16] VITALS: BP 132/81; PULSE 68; RESP 14; O2SAT 98
--- NOTE | 2025-09-29 10:17 | PC.NURSE ---
Patient tolerated Daratumumab/hyaluronidase injection well today. SEE MAR/patient care notes.
[2025-09-30 10:20] LABS: Immunoglobulin G 334 mg/dL (700-1600)
[2025-09-30 11:56] LABS: Immunoglobulin A < 40 mg/dL (70-400); Immunoglobulin M < 25 mg/dL (40-230)
[2025-09-30 12:08] LABS: Albumin 3.4 g/dL (2.9-4.4); Alpha-1-Globulin 0.2 g/dL (0.0-0.4); Alpha-2-Globulin 1.1 g/dL (0.4-1.0); Gamma Globulin 0.3 g/dL (0.4-1.8)
[2025-09-30 15:09] LABS: Free Lambda Lt Chains, Serum 3.6 mg/L (5.7-26.3); Kappa/Lambda Ratio, Serum 1.67 (0.26-1.65)
[2025-10-01 09:08] LABS: Immunoglobulin A, Qn 23 mg/dL (90-386); Immunoglobulin G, Qn 353 mg/dL (603-1613); Immunoglobulin M, Qn 30 mg/dL (20-172)
== END 2025-09-29 08:32 | disposition home or self-care (01) ==
PROVIDERS: PCP Physician Assistant; Visit Provider Internal Medicine Hematology
DX: Z51.11 Encounter for antineoplastic chemotherapy (principal); C90.00 Multiple myeloma not having achieved remission
CPT/HCPCS: 36415; 80053; 82784; 83521; 84155; 84165; 85025; 86334; 96401; A9270; J8540; J9144

== ENCOUNTER 2025-10-14 08:10 | Outpatient (CLI) | payer OTHER, SELFPAY ==
--- OUTSIDE RECORDS SUMMARY | 2025-02-19 10:37 | XMS_ITS | Encounter Summary ---
Author Organization [facility] Address [address] [facility] [place] [address] Care Team Providers Care [employer] Driver Name Role Phone Matthew Sorenson Primary Care Provider [phone] Jose Luis Brooks MD Unavailable [phone] Abelardo Presley MD Unavailable [phone] Bo Francisco MD Unavailable [phone] Angie Rogers MD Unavailable Katie Gutierrez PharmD Unavailable Unavailab le Jaja Rayo RN Unavailable Unavailable Abimbola Waters HAND MOUNTER-OIL FURNACE INSTALLER Unavailable [phone] Perri Dexter HAND MOUNTER-OIL FURNACE INSTALLER Unavailable [phone] Marilyn Bennett RN Unavailable Unavailable Erasmo Roberson RN Unavailable Unavailable Alexandra Cota RN Unavailable Unavailable Alda Braswell Unavailable Unavailable Lucia Sharif LCSW Unavailable Unavailab le Reason for Referral * (Routine) - Pending Review Specialty Diagnoses / Procedures Referred By Contac t Referred To Contact Procedures Follow up with provider Juan Valencia MD [address] [address] Phone: tel: fax: Referral ID Status Reason Start Date Expiration Date V isits Requested Visits Authorized [id number] Pending Review 02/19/2025 02/19/2026 1 1 * Radiology Services (Routine) - Pending Review Specialty Diagnoses / Procedures Referred By Vikash winters Referred To Contact Diagnoses Hepatitis C virus infection without hepatic coma, unspecified chronicity History of multiple myeloma Procedures CT US Guided Needle Placement IR Perc Liver Biopsy Juan Valencia MD [address] [facility] [address] [place] [address] Phone: tel: fax: [facility] [address] [place] [address] Phone: tel: Referral ID Status Reason Start Date Expiration Date V isits Requested Visits Authorized [id number] Pending Review 02/19/2025 02/19/2026 1 1 Reason for Visit * Auth/Cert (Routine) Specialty Diagnoses / Procedures Referred By Vikash winters Referred To Contact Diagnoses Chronic hepatitis C without hepatic coma (HCC) Transaminitis Chronic hepatitis C without hepatic coma (HCC) [B18.2] Transaminitis [R74.01] Procedures [place] US GUIDED NEEDLE PLACEMENT BIOPSY LIVER (NEEDLE/PERCUTANEOUS) Referral ID Status Reason Start Date Expiration Date Visits Re quested Visits Authorized [id number] 1 1 Encounter Details Date Type Department Care Team (Latest Contact Info) Description 02/19/2025 11:37 AM CDT Hospital Encounter [facility] [address] [place] [address] Juan Valencia MD [facility] [facility] [address] [place] [address] Interven Radiology Social History Tobacco Use Types Packs/Day Years Used Date Smoking Tobacco: Former Cigarettes 1.5 34.2 S tarted: 08/20/1991 Passive Smoke Exposure: Past Smokeless Tobacco: Never Alcohol Use Standard Drinks/Week Comments Not Currently 0 (1 standard drink = 0.6 oz pur e alcohol) rarely AUDIT-C Answer Date Recorded Q1: How often do you have a drink containing alcohol? Never 11/23/2024 Q2: How many drinks containi ng alcohol do you have on a typical day when you are drinking? Patient does not drink Q3: How often do you have si x or more drinks on one occasion? Never 11/23/2024 Overall Financial Resource Strain (CARDIA) Answe r Date Recorded How hard is it for you to pa y for the very basics like food, housing, medical care, and heating? Very hard 11/23/2024 PHQ-2 Answer Date Recorded Patient Health Questionnaire-2 Score 0 09/22/2025 [facility] - Occupational Stress Questionnaire Answer Date Recorded Do you feel stress - tense, restless, nervous, or anxious, or unable to sleep at night because your mind is troubled all the time - these days? Very much 11/23/2024 Hunger Vital Sign Answer Date Recorded Within the past 12 months, y ou worried that your food would run out before you got the money to buy more. Patient declined Within the past 12 months, t he food you bought just didn't last and you didn't have money to get more. Patient declined PRAPARE - Transportation Answer Date Re corded In the past 12 months, has l ack of transportation kept you from medical appointments or from getting medications? Yes 10/30 In the past 12 months, has l ack of transportation kept you from meetings, work, or from getting things needed for daily living? No 11/23/2024 Housing Stability Vital Sign Answer Obed e Recorded In the last 12 months, was t here a time when you were not able to pay the mortgage or rent on time? No 06/04/2024 In the last 12 months, how many places have you lived? 1 06/04/2024 In the last 12 months, was t here a time when you did not have a steady place to sleep or slept in a halfway (including now)? No 06/04/2024 Housing Stability Vital Sign Answer Obed e Recorded In the last 12 months, was t here a time when you were not able to pay the mortgage or rent on time? Yes 11/23/2024 In the past 12 months, how m any times have you moved where you were living? 0 11/23/2024 At any time in the past 12 m [facility], were you homeless or living in a halfway (including now)? No 11/23/2024 Sex and Gender Information Value Date Recorded Sex Assigned at Not on file Legal Sex Male 11:44 AM COUNTER CUTTER Gender Identity Not on file Sexual Orientation Not on file documented as of this encounter Last Filed Vital Signs Vital Sign Reading Time Taken Comments Blood Pressure 116/61 02/19/2025 2:30 PM CDT Pulse 62 02/19/2025 2:30 PM CDT Temperature 36.7 C (98 F) 02/19/2025 12:50 PM CDT Respiratory Rate 17 02/19/2025 2:30 PM CDT Oxygen Saturation 95% 02/19/2025 2:30 PM CDT Inhaled Oxygen Concentration 21% 02/19/2025 1 :30 PM CDT Weight - - Height - - Body Mass Index - - documented in this encounter Functional Status * Question Answer Date of Assessment Author Is person deaf or have sofia us hearing difficulty? No 02/19/2025 1:20 PM AURET Richie Alejandro RN Is person blind or have seri ous difficulty seeing? No 02/19/2025 1:20 PM CDT Richie Alejandro RN Does person have serious difficulty walking/climbing stairs? No 02/19/2025 1:20 PM AURET Richie Alejandro RN Does person have difficulty dressing/bathing? No 02/19/2025 1:20 PM AURET Richie Alejandro RN Does person have difficulty doing errands alone? No 02/19/2025 1:20 PM AURET Richie Alejandro RN Does person have difficulty concentrating/remembering/making decisions? No 02/19/2025 1:20 PM AURET Richie Alejandro RN * Is person deaf or have serious hearing difficulty? Answer Date of Assessment Author No 02/19/2025 1:20 PM Richie Kruse RN * Is person blind or have serious difficulty seeing? Answer Date of Assessment Author No 02/19/2025 1:20 PM Richie Kruse RN * Does person have serious difficulty walking/climbing stairs? Answer Date of Assessment Author No 02/19/2025 1:20 PM Richie Kruse RN * Does person have difficulty dressing/bathing? Answer Date of Assessment Author No 02/19/2025 1:20 PM CDT Richie Alejandro, LOLI * Does person have difficulty doing errands alone? Answer Date of Assessment Author No 02/19/2025 1:20 PM CDT Richie Alejandro, LOLI * Over the past 2 weeks, how often have you been bothered by any of the following problems? Question Answer Date of Assessment Author Little interest or pleasure in doing things Not at all 09/22/2025 1:12 PM COUNTER CUTTER Laura Mendoza M A Feeling down, depressed, or hopeless Not at all 09/22/2025 1:12 PM COUNTER CUTTER Laura Mendoza M A Patient Health Questionnaire -2 Score 0 09/22/2025 1:12 PM Laura Greene M A documented as of this encounter Mental Status * Does person have difficulty concentrating/remembering/making decisions? Answer Entry Date Author No 02/19/2025 1:20 PM CDT Richie Alejandro, LOLI documented in this encounter Progress Notes * Balbir Rdz RN - 02/19/2025 12:37 PM CDT Interventional Radiology Nursing - End Procedure Note Sedation: Versed: 3 mg, Fentanyl: 150 mcg Sedation start time: 1206 hours Procedure start time: 1226 hours Procedure end time: 1236 hours Additional drugs: None documented in this encounter H&P Notes * Callum Guerrero MD - 02/19/2025 11:29 AM CDT Vascular & Interventional Radiology Short Pre-Procedure Interval H&P Patient: Joselito Nguyen Date of visit: 02/19/2025 The patient presents to IR today for an image guided liver biopsy. The office visit note dated 02/11/25 by Jose Luis Brooks MD was reviewed and no significant interval changes are noted. Recent Labs Component Name 02/12/25 1035 02/02/25 0916 01/13/25 1124 WBC 11.6* 8.9 10.1 HGB 16.1 14.1 14.3 HCT 48.4 42.5 42.3 PLTCOUNT 335 259 298 Recent Labs Component Name 02/19/25 0826 12/01/24 2100 11/07/24 0847 INR 1.0 0.9 1.0 Recent Labs Component Name 02/12/25 1035 02/02/25 0916 01/13/25 1124 NA 142 139 138 GLUCOSE 150* 245* 228* CREATININE 0.77 0.68* 0.79 EGFR >90 >90 >90 Recent Labs Component Name 02/12/25 1035 02/02/25 0916 01/13/25 1124 ALB 4.6 4.1 3.7 TBILI 0.3 0.2 0.4 ALT 24 21 71* AST 13 12 54* ALKPHOS 214* 185* 286* Pre-Sedation Evaluation: Level: Moderate with Versed and Fentanyl ASA: III. Patient with severe systemic disease Mallampati: II (soft palate, uvula, fauces visible) Fasting status: Regular Meal > 8 hours Informed consent obtained? Yes Pre-procedure vitals reviewed? Yes History of prior adverse reaction to sedation or anesthesia? No Based on the above information, the patient is an appropriate candidate for the level of sedation planned. Assessment & Plan: Pertinent labs and relevant imaging studies were reviewed. Informed consent was obtained from the patient after explaining the risks, benefits, and alternatives of the procedure. Risks include but are not limited to infection, bleeding, and injury to surrounding structures. All questions were answered to the best of my ability. Planned procedure: image guided liver biopsy documented in this encounter OR Notes * Brief Op Note - Seng Gaston MD - 02/19/2025 12:00 PM CDT Vascular & Interventional Radiology Brief Post-Procedure Note Patient: Joselito Nguyen Attending: Callum Guerrero MD Tree Surgeon: Seng Gaston MD Diagnosis/Indication: hx of hep C infection, appearance of cirrhosis on diagnostic imaging. Procedure: Ultrasound-guided random core biopsy of the liver. Findings: Limited US showed the left liver accessible to percutaneous biopsy. Core biopsy performedwith 18-gauge device. Biopsy tract embolized with gelfoam slurry to prevent bleeding. Anesthesia: Local (1% Lidocaine) and Moderate sedation (3 mg Versed IV and 150 mcg Fentanyl IV) Additional medications given: None Estimated blood loss: Minimal Specimens: 2 x 18G core biopsies sent in formalin Immediate complications: None Time out and final pre-procedure assessment completed immediately prior to start of procedure. Intra-procedure orders and medication record reviewed. Medications and doses administered by staff as verbally ordered. See detailed procedure note with images in PACS. Cosigned by Callum Guerrero MD at 02/20/2025 5:30 AM CDT Associated attestation - Callum Guerrero MD - 02/20/2025 5:30 AM CDT Attending Physician Attestation I agree with the resident's note and was scrubbed in for the entire procedure. Callum Guerrero MD Invoice Coder Vascular & Interventional Radiology 02/20/2025 5:30 AM documented in this encounter Miscellaneous Notes * Clinical References AVS - Richie Alejandro, RN - 02/19/2025 1:22 PM CDT Images from the original note were not included. [id number] Liver Biopsy A liver biopsy is when a small piece (sample) of liver tissue is taken out of your liver. The tissue is sent to a lab. It's checked under a microscope. To do the biopsy, your healthcare provider putsa needle through your skin and into your liver. You may hear this called a percutaneous liver biopsy. In some cases, the biopsy is done by moving a thin tube through a vein into the liver area. This is called a transjugular liver biopsy. This method is less common. It may be used if you have fluid in your abdomen (ascites). Or if you have a severe risk of bleeding. Your health care provider will give you an ultrasound or CT scan of your lower chest and upper abdominal area to help find the best site for your biopsy. Getting ready Before your biopsy: ?? Have blood tests as directed. ?? Follow all directions you're given for not eating or drinking before the biopsy. ?? Arrange for someone to drive you home after your biopsy. ?? Talk with your healthcare provider if you have any questions or concerns. Also tell your provider about all of the medicines and supplements you take. This includes: ?? Medicines, such as warfarin, that thin the blood and prevent blood clots. ?? Other medicines that thin the blood. This includes aspirin. It also includes nonsteroidal anti-inflammatory drugs (NSAIDs), such as ibuprofen and naproxen. ?? Medicines for heart conditions ?? Noih-wnb-egympnd medicines ?? All prescription medicines ?? Illegal drugs ?? Herbs, vitamins, and other supplements Stop taking aspirin and NSAIDS 1 week before the biopsy. Ask what other medicines you may need to stop. Follow any other directions from your provider. During the procedure ?? You'll change into a hospital gown. You'll lie on your back or your left side. Part of your bodyis draped. ?? Your healthcare provider checks your blood pressure, pulse, breathing, and temperature. ?? Your provider may give you medicine through an IV (intravenous) line to help you relax. They'll also put medicine on your skin around the biopsy site to numb it. ?? You may have an ultrasound or CT scan of your liver. This is so your provider can find the best site to take the sample. ?? For a percutaneous liver biopsy, your provider will put a small needle through a tiny cut (incision) in your belly wall into the liver. They will take out a small sample of liver tissue. You'll betold to hold your breath while this is done. The needle is taken out. ?? For a transjugular biopsy, your provider will make a small cut in your neck. Then they will insert a small flexible tube (catheter) into your vein. The catheter is moved through the vein down to your liver. A contrast dye is put into the catheter and X-rays are taken. The dye helps the vein showup more clearly on the X-rays. Then a needle goes through the catheter to your liver. Tissue samples are removed through the tube. ?? A provider places a bandage over the incision site. For a percutaneous biopsy, they may ask you to lie on your right side for a while. A pillow or special sandbag may be used to put pressure on the incision site. ?? You'll be asked to rest. You'll be watched for a few hours after your biopsy. You can then go home if you are stable and comfortable and you have no signs of bleeding. After the procedure Have someone drive you home after your liver biopsy. You may feel some pain near the biopsy site wilfredo your right shoulder. This shoulder pain is called referred pain. When you're home: ?? Get plenty of rest. ?? Don't drink alcohol. ?? Don?t lift anything more than 15 to 20 pounds for 1 week. ?? Don?t exercise for 5 to 7 days. ?? Don't take aspirin. ?? Ask your provider when you can start taking other blood-thinning medicines as needed. ?? Follow any other directions from your provider. Getting your results Your biopsy results may take a few days. When the results are ready, your provider will discuss them with you. When to call your healthcare provider Call your provider right away if you have any of these: ?? Severe pain near the biopsy site or in your belly or chest ?? Fainting or feeling lightheaded ?? Trouble breathing ?? A fever of 100.4??F ( 38??C) or higher ?? Shaking chills ?? Feeling weak ?? Sweating ?? Bleeding from the incision site ?? Blood in your stool or black, tarry stools ?? Swollen belly Last Reviewed Date: 2023 00:00:00 ?? [id number] [employer]. All rights reserved. This information is not intended as a substitute for professional medical care. Always follow your healthcare professional's instructions. documented in this encounter Plan of Treatment Upcoming Encounters Date Type Department Care Team (Late st Contact Info) Description 11/24/2025 8:30 AM COUNTER CUTTER Office Visit [facility] [address] [place] [address], [place] [address] Janice Lynn MD [address] [place] [phone] 02/18/2026 1:00 PM CDT Video Visit [facility] - Infectious Disease [address] [place] [address] [place] [id number] Cristian Mcmillan MD [address] [place] [id number] documented as of this encounter Procedures Procedure Name Priority Date/Time Associated Diagnosis Comments CT US GUIDED NEEDLE PLACEMENT Routine 02/19/2025 12:45 PM CDT Hepatitis C virus infection without hepatic coma, unspecified chronicity History of multiple myeloma PATHOLOGY TISSUE Routine 02/19/2025 12:3 4 PM CDT Chronic hepatitis C without hepatic coma (HCC) Multiple myeloma not having achieved remission (HCC) documented in this encounter Results * CT US Guided Needle Placement (02/19/2025 12:45 PM CDT) Anatomical Region Laterality Modality Chest, Abdomen Computed Tomogra phy 02/19/2025 12:5 9 PM CDT Impressions 02/24/2025 5:33 PM CDT Impression: Ultrasound-guided random core biopsy of the liver, as detailed above. Note that the pathology report is pending at the time of this dictation. Dr. Cesar Mondragon, was present and performed/supervised the entire procedure. Moderate sedation on this patient was ordered by me, administered intravenously in my presence, and monitored by the procedure nurse as an independent trained observer who was present throughout the procedure. The following parameters were monitored: oxygen saturation, heart rate, blood pressure, and response to care. Intra-service sedation start time was 1206 hours and end time was 1236 hours during which I was present. Total physician intra-service sedation time was 30 minutes. For details on pre moderate sedation and post moderate sedation patient evaluation, please review the evaluation forms in [facility]. For details on monitored clinical parameters during the intra-service sedation time, please review the procedure nurse documentation in [facility]. > Dictated by Seng Gaston MD (Tracer Lathe Set Up Operator) 02/19/2025 12:59 PM Callum Mondragon MD have personally reviewed and interpreted this examination/study. > Interpreting Provider: Callum Guerrero MD on 02/24/2025 5:33 PM Narrative 02/24/2025 5:33 PM CDT PROCEDURE: CT US GUIDED NEEDLE PLACEMENT DATE/TIME OF EXAM: 02/19/2025 12:50 PM Indication: B19.20: Hepatitis C virus infection without hepatic coma, unspecified chronicity Z85.79: History of multiple myeloma History: History of hepatitis C infection and appearance of cirrhosis on diagnostic imaging. Operators: 1.Dr. Callum Guerrero, Attending Physician 2.Dr. Seng Gaston, Resident Physician Anesthesia: 1.Local anesthesia - 10 mL of 1% lidocaine 2.Intravenous conscious sedation - Versed 3 mg and Fentanyl 150 mcg Procedure: 1.Limited ultrasound evaluation of the left liver. 2.Ultrasound-guided random core biopsy of the left liver. Procedure in detail: The procedure, risk, and possible complications were explained to the patient in detail, and informed consent was obtained. The patient was placed in a supine position on the ultrasound table and a limited multiplanar ultrasound evaluation of the left liver was performed, which is unremarkable in appearance. A percutaneous access site was marked on the skin. The marked site and skin around the region of interest was prepped and draped in sterile fashion. Pre-procedure time out was performed. Local anesthesia was provided with 1% Lidocaine. A 17 gauge coaxial needle system was advanced in stages under ultrasound guidance. The needle entry was documented. With the needle tip at/within the edge of the lesion, 2 core samples were acquired with a 18 gauge biopsy gun. The samples were sent to the pathology service in formalin. The biopsy tract was embolized with a small amount of Gelfoam slurry. Post-biopsy limited ultrasound evaluation did not show any immediate complications such as major hemorrhage. The patient tolerated the procedure well and was transferred to the holding area in stable condition. Procedure Note Callum Guerrero MD - 02/24/2025 PROCEDURE: CT US GUIDED NEEDLE PLACEMENT DATE/TIME OF EXAM: 02/19/2025 12:50 PM Indication: B19.20: Hepatitis C virus infection without hepatic coma, unspecified chronicity Z85.79: History of multiple myeloma History: History of hepatitis C infection and appearance of cirrhosis on diagnostic imaging. Operators: 1.Dr. Callum Guerrero, Attending Physician 2.Dr. Seng Gaston, Resident Physician Anesthesia: 1.Local anesthesia - 10 mL of 1% lidocaine 2.Intravenous conscious sedation - Versed 3 mg and Fentanyl 150 mcg Procedure: 1.Limited ultrasound evaluation of the left liver. 2.Ultrasound-guided random core biopsy of the left liver. Procedure in detail: The procedure, risk, and possible complications were explained to the patient in detail, and informed consent was obtained. The patient was placed in a supine position on the ultrasound table and a limited multiplanar ultrasound evaluation of the left liver was performed, whichis unremarkable in appearance. A percutaneous access site was marked on the skin. The marked site and skin around the region of interest was prepped and draped in sterile fashion. Pre-procedure time out was performed. Local anesthesia was provided with 1% Lidocaine. A 17 gauge coaxialneedle system was advanced in stages under ultrasound guidance. The needleentry was documented. With the needle tip at/within the edge of the lesion, 2 core samples were acquired with a 18 gauge biopsy gun. The samples were sent to the pathology service in formalin. The biopsy tract wasembolized with a small amount of Gelfoam slurry. Post-biopsy limited ultrasound evaluation did not show any immediate complications such as major hemorrhage. The patient tolerated theprocedure well and was transferred to the holding area in stable condition. Impression: Ultrasound-guided random core biopsy of the liver, asdetailed above. Note that the pathology report is pending at the time of this dictation. Dr. Cesar Mondragon, was present and performed/supervised the entireprocedure. Moderate sedation on this patient was ordered by me, administered intravenously in my presence, and monitored by the procedure nurse as an independent trained observer who was present throughout the procedure.The following parameters were monitored: oxygen saturation, heart rate,blood pressure, and response to care. Intra-service sedation start time [id number] hours and end time was 1236 hours during which I was present. Total physician intra-service sedation time was 30 minutes. For details on pre moderate sedation and post moderate sedation patient evaluation, please review the evaluation forms in [facility]. For details on monitored clinical parameters during the intra-service sedation time, please review the procedure nurse documentation in [facility]. > Dictated by Seng Gaston MD (Tracer Lathe Set Up Operator) 02/19/2025 12:59 PM Callum Mondragon MD have personally reviewed and interpreted this examination/study. > Interpreting Provider: Callum Guerrero MD on 02/24/2025 5:33 PM Juan Valencia MD CT ORDERABLES Final Result * PATHOLOGY TISSUE (02/19/2025 12:34 PM CDT) Case Report Surgical Pathology Report Case: [id number] Authorizing Provider: Juan Valencia MD Collected: 02/19/2025 12:34 PM Ordering Location: [facility] Received: 02/19/2025 01:06 PM Pathologist: Sammi Escalante MD Specimen: Liver Needle Biopsy, liver bx 02/20/2025 3:50 PM CDT [facility] Final Diagnosis Liver, biopsy (A): - Chronic hepatitis with minimal-mild activity - Steatosis and lobular inflammation without ballooning - Cirrhosis, see comment 02/20/2025 3:50 PM CDT [facility] at 1550 CDT Microscopic Description and Comment The liver biopsy is 2 cores of liver with mostly nodular architecture consistent with cirrhosis. Within the septa and residual portal tracts incorporated into septa, there is mild to moderate chronic inflammation that includes small lymphoid aggregates and no overrepresentation of plasma cells. Interface activity is focal and mild. Within the septa, there are increased vascular and duct profiles, but no ductular reaction with fibroplasia or so-called biliary type interface. Across the lobules, there is mild activity (<2 foci/20x field) and mild macrovesicular steatosis (15%), but no ballooned hepatocytes or Alesia Denk bodies. The trichrome and reticulin stains highlight septa, some rather broad, that disrupt the normal lobular architecture into nodules, most consistent with cirrhosis. At 1 end of 1 core, the nodular architecture is less apparent ovary 4 mm linear length segment. The PAS-D stain is negative for alpha-1 antitrypsin globules. The iron stain highlights focal/mild reticuloendothelial iron only. In a patient with known history of hepatitis C, the portal/septal chronic inflammation especially with lymphoid aggregates is a pattern of chronic hepatitis compatible with HCV infection. Interface activity or other signs of brisk active hepatocellular injury are not well-demonstrated; the activity grade is best considered 1-2 out of 4 (per Alberto Carlos). However, the degree of fibrosis does appear advanced with multiple nodules and septa compatible with cirrhosis (stage 4). The limited area without distinct nodularity may represent an area of fibrotic regression. In addition to the chronic hepatitis pattern seen, there is also steatosis and lobular activity compatible with steatotic liver disease, although not quite diagnostic for steatohepatitis. Such findings may reflect metabolic dysfunction associated liver disease (MASLD), alcohol related liver disease (ALD), both (MetALD), or other; the NAFLD activity score is 2 out of 8 (steatosis-1, inflammation-1, ballooning-0). 02/20/2025 3:50 PM [facility] Clinical History The patient is a 44-year-old man with history of hepatitis C infection and appearance of cirrhosis on diagnostic imaging. Operative procedure: Ultrasound-guided random core liver biopsy 02/20/2025 3:50 PM [facility] Gross Description The requisition and specimen(s) are identified with the patient's name, Joselito Nguyen. Received in formalin, specimen A, are two baldwin-pink needle cores, 1.7 and 1.0 cm, both 0.1 cm diameter, submitted in toto in cassette A1. IKD 02/20/2025 3:50 PM [facility] Pathologist Location at [facility] 02/20/2025 3:50 PM [facility] Disclaimer The performance characteristics of all immunohistochemical and indirect immunofluorescence stains (if any) cited in this report were determined by the Histopathology Laboratory of [facility]. Some of these tests were developed by our own laboratory and have not been cleared or approved by the US Food and Drug Administration. The FDA does not require this test to go through premarket FDA review. These tests are used for clinical purposes. They should not be regarded as investigational or for research. This laboratory is certified under the Clinical Laboratory Improvement Amendments (CLIA) as qualified to perform high complexity clinical laboratory testing. This case has been personally reviewed and interpreted by the attending (teaching) pathologist. 02/20/2025 3:50 PM [facility] Collected By Balbir Rdz RN 3:50 PM [facility] Embedded Images 02/20/2025 3:50 PM [facility] Pathology/Cytolo gy NEEDLE BIOPSY OF LIVER / Unknown Collection / Unknown 02/19/2025 12:34 PM CDT 02/19/2025 1:06 PM CDT Comment:LIVER NEEDLE BIOPSY Juan Valencia MD LAB - PATHOLOGY/CYTOLOGY ORDER LISSETH Final Result [facility] [address] [place] [address], [facility] [phone] documented in this encounter Visit Diagnoses Diagnosis Chronic hepatitis C without hepatic coma (HCC)- Primary Multiple myeloma not having achieved remission (HCC) Multiple myeloma, without mention of having achieved remission Hepatitis C virus infection without hepatic coma, unspecified chronicity History of multiple myeloma Personal history of other lymphatic and hematopoietic neoplasm documented in this encounter Administered Medications Inactive Administered Medications - up to 3 most recent administrations Medication Order MAR Action Action Date Dose Rate Site 0.9% NaCl infusion Intravenous, CONTINUOUS PRN, Starting on Faby 02/19/25 at 1141, Until Faby 02/19/25 at 1246, Intra-op $ New Bag/Syringe 02/19/2025 11:41 AM CDT 250 mL fentaNYL (PF) (Sublimaze) injection ONCE PRN, Starting on Faby 02/19/25 at 1206, Until Faby 02/19/25 at 1246, Intra-op $ Given 02/19/2025 12:12 PM CDT 50 mcg $ Given 02/19/2025 12:06 PM CDT 50 mcg lidocaine (Xylocaine) 1 % injection Subcutaneous, ONCE PRN, Starting on Faby 02/19/25 at 1226, Until Faby 02/19/25 at 1246, Intra-op $ Given 02/19/2025 12:26 PM CDT 10 mL See Comments midazolam (Versed) injection Intravenous, ONCE PRN, Starting on Faby 02/19/25 at 1206, Until Faby 02/19/25 at 1246, Intra-op $ Given 02/19/2025 12:12 PM CDT 1 mg $ Given 02/19/2025 12:06 PM CDT 1 mg oxyCODONE (immediate release) (Roxicodone) tablet 5 mg 5 mg, Oral, Once, 1 dose, On Faby 02/19/25 at 1430, Patient preference for lesser PRN pain meds may be honored when the patient requests a less strong medication, a lower dose, or a less intrusive route of administration when the lesser drug, dose and route have been ordered for the patient. This patient request must be documented in the MAR. 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 documented as of this encounter Care Teams Parcel Post Truck Driver Relationship Specialty Start Date End Date Matthew Sorenson PA [address] [place] [address] PCP - General 02/02/22 Jose Luis Brooks MD [address] [place] [address] Air Sampling And Monitoring/Oncologis t Hematology and Oncology 08/29/24 05/27/25 Abelardo Presley MD [address] [place] [address] Hematology and Oncology 08/29/24 03/04/25 Bo Francisco MD [address] [place] [id number] Hematology and Oncology 08/29/24 03/04/25 Angie Rogers MD [address] [place] [id number] Physician Hematology and Oncology 08/29/24 03/04/25 Katie Gutierrez, PharmD 08/29/24 03/04/25 Jaja Rayo RN Registered Nurse 08/29/24 03/04/25 Abimbola Waters, DAYNA-OIL FURNACE INSTALLER [facility] [place] [address] Nurse Practitioner Nurse Practitioner 08/29/24 03/04/25 Perri Dexter APRN-CNP [address] [place] [address] Nurse Practitioner Nurse Practitioner 08/29/24 03/04/25 Marilyn Bennett, RN Coordinator 08/29/24 05/27/25 Erasmo Roberson, RN Registered Nurse 08/29/24 03/04/25 Alexandra Cota, RN Registered Nurse 08/29/24 03/04/25 Alda Braswell 08/29/24 03/04/25 Lucia Sharif, INSURANCE TERRITORY MANAGER Networker 08/29/24 03/04/25 documented as of this encounter
--- OUTSIDE RECORDS SUMMARY | 2025-10-14 08:25 | XMS_ITS | Clinical Summary ---
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 Gender Identity Not on file Sexual Orientation [...] 04/06/2026 04/06/2025, 11/29, 12/13/2024, Additional history exists Procedures Procedure Name Priority Date/Time Associated Diagnosis [...] LAB BLOOD ORDERABLES Final Resul t [facility] [place] [address] from Last 3 Months or Most Recently Relevant to Health Maintenance Insurance [facility] Care Teams Media Relations Associate Relationship Specialty Start Date End Date Matthew Sorenson PA [address] [place] [address] PCP - General Family Practice 05/04/23 Matthew Sorenson PA [address] [place] [address] Family Practice 09/12/22
--- OUTSIDE RECORDS SUMMARY | 2025-10-14 08:26 | XMS_ITS | Encounter Summary ---
Author Organization [facility] Address [address] [place] [address] Care Team Providers Care Planning And Analysis Manager Name Role Phone Matthew Sorenson Primary Care Provider [phone] Jose Luis Brooks MD Unavailable [phone] Abelardo Presley MD Unavailable [phone] Bo Francisco MD Unavailable [phone] Angie Rogers MD Unavailable Katie Gutierrez PharmD Unavailable Unavailab le Jaja Rayo RN Unavailable Unavailable Abimbola Waters PHOTOGRAPHIC DEVELOPER AND PRINTER-ROAD MACHINE OPERATOR Unavailable [phone] Perri Dexter PHOTOGRAPHIC DEVELOPER AND PRINTER-ROAD MACHINE OPERATOR Unavailable [phone] Marilyn Bennett RN Unavailable Unavailable Erasmo Roberson RN Unavailable Unavailable Alexandra Cota RN Unavailable Unavailable Alda Braswell Unavailable Unavailable Lucia Sharif LCSW Unavailable Unavailab le Reason for Visit * Reason Onset Date Comments MEDICATION REFILL 10/20/2024 Encounter Details Date Type Department Care Team (Late st Contact Info) Description 10/20/2024 Refill [facility] - Hematology/Oncology [address] [place] [address] Jose Luis Brooks MD [address] [facility] [place] [address] MEDICATION REFILL Social History Tobacco Use Types Packs/Day Years Used Date Smoking Tobacco: Every Day Cigarettes 1.5 34.2 Started: 08/20/1991 Smokeless Tobacco: Never Alcohol Use [...] any time in the past 12 m [facility], were you homeless or living in a detention (including now)? No 10/24/2024 Sex and Gender Information Value Date Recorded Sex Assigned at Not on file Legal Sex Male 11:44 AM HANDWRITING EXPERT Gender Identity Not on file Sexual Orientation Not on file documented as of this encounter Functional Status * Is person deaf or have serious hearing difficulty? Answer Date of Assessment Author No 09/05/2024 9:00 AM Ruthy Sam RN * Is person blind or have serious difficulty seeing? Answer Date of Assessment Author No 09/05/2024 9:00 AM HANDWRITING EXPERT Ruthy Mueller RN * Does person have serious difficulty walking/climbing stairs? Answer Date of Assessment Author No 09/05/2024 9:00 AM HANDWRITING EXPERT Ruthy Mueller RN * Does person have [...] st Contact Info) Description 11/24/2025 8:30 AM HANDWRITING EXPERT Office Visit [facility] - Orthopedics [facility] 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 CDIFF Under Investigation 01/13/2025 01/13/2025 7:19 PM CDT COVID-19 Under Investigation 01/13/2025 01/13/2025 01/13/2025 4:01 PM CDT COVID-19 Under Investigation 02/12/2025 02/12/2025 02/12/2025 4:07 PM CDT documented as of this encounter Care Teams Planning And Analysis Manager Relationship Specialty Start Date End Date Matthew Sorenson PA [address] [place] [address] PCP - General 02/02/22 Jose Luis Brooks MD [address] [place] [address] Lactation Coordinator/Oncologis t Hematology and Oncology 08/29/24 05/27/25 Abelardo Presley MD [address] [place] [address] Hematology and Oncology 08/29/24 03/04/25 Bo Francisco MD [address] [place] [phone] Hematology and Oncology 08/29/24 03/04/25 Angie Rogers MD [address] [place] [phone] Physician Hematology and Oncology 08/29/24 03/04/25 Katie Gutierrez, PharmD 08/29/24 03/04/25 Jaja Rayo, RN Registered Nurse 08/29/24 03/04/25 Abimbola Waters APRN-CNP [address] [place] [address] Nurse Practitioner Nurse Practitioner 08/29/24 03/04/25 Perri Dexter APRN-CNP [address] [place] [address] Nurse Practitioner Nurse Practitioner 08/29/24 03/04/25 Marilyn Bennett, RN Coordinator 08/29/24 05/27/25 Erasmo Roberson, RN Registered Nurse 08/29/24 03/04/25 Alexandra Cota, RN Registered Nurse 08/29/24 03/04/25 Alda Braswell 08/29/24 03/04/25 Lucia Sharif, DIRECTOR OF TRAINING Coffee Grinder 08/29/24 03/04/25 documented as of this encounter
--- OUTSIDE RECORDS SUMMARY | 2025-10-14 08:26 | XMS_ITS | Clinical Summary ---
Author Organization [facility] Address [facility] [place] [address] Care Team Providers Care Cane Pusher Name Role Phone Matthew Sorenson Primary Care Provider Allergies Active Allergy Reactions Criticality Noted Date Comments Morphine Itching 12/17/2024 Vancomycin Redness 12/17/2024 Medications Continuous Glucose Health Equipment Servicer (DEXCOM G7 EXECUTIVE ADMINISTRATIVE ASSISTANT) Device see administration instructions. Active acyclovir (ZOVIRAX) [...] Active Continuous Glucose Sensor (DEXCOM G7 SENSOR) [facility] 12/15/19 25 Active dexamethasone (DECADRON) 4 MG [...] CDT - 07/17/2025 11:05 AM CDT [facility] [address] [place] [address] Jyothi Park, DO Flu Like Symptoms Discharge [...] Sex Assigned at Male 12/17/2024 8:02 PM MILITARY TECHNICIAN Legal Sex Male 9:50 PM MILITARY TECHNICIAN Gender Identity Not on file Sexual Orientation [...] Vaccines ( 1 - Tdap) 1997 Hepatitis A Vaccines (1 of 2 - Risk 2-dose series) 1997 Hepatitis B Vaccines (1 of 3 - 19+ 3-dose series) 1997 Pneumococcal Vaccine: Pediatrics (0 to 5 Years) and At-Risk Patients (6 to 49 Years) (1 of 2 - PCV) 1997 Influenza Adult (#1) 2025 Hepatitis C Completed 05/29/2025, 06/04/2024 Meningococcal B [...] CHEST PA+LAT STAT 07/17/2025 10:01 AM CDT HC D DIMER QN STAT 07/17/2025 9:25 AM CDT LACTIC ACID W REFLEX (SEPSIS) STAT 07/17/2025 9:25 AM CDT HC COMPREHENSIVE METABOL PANEL STAT 07/17/2025 9:25 AM CDT HC CBC AUTO W/AUTO DIFF STAT 07/17/2025 9:25 AM CDT HC URINALYSIS AUTO W/MICRO STAT 07/17/2025 9:13 AM CDT HC RSV AG QL STAT 07/17/2025 9:10 AM CDT HC EIA QL INFLUENZA A/B AG STAT 07/17/2025 9:10 AM CDT CORONAVIRUS (COVID-19) [...] 10:04 AM Narrative 07/17/2025 10:05 AM CDT [address] [place] [address] Examination: Two-view chest Exam time: 0936 hours. [...] Procedure Note Ravi Isaac MD - 07/17/[address] [place] [address] Examination: Two-view chest Exam time: 0936 hours. [...] By: Ravi Isaac MD, 07/17/2025 10:04 AM Jyothi Park DO GENERAL IMAGING Final Result * LACTIC ACID W REFLEX (SEPSIS) (07/17/2025 9:25 AM CDT) LACTIC ACID VENOUS 1.7 0.4 - 2.0 MMOL/L 07/17/2025 10:06 AM CDT [facility] 07/17/2025 9:25 AM CDT Jyothi Park DO LABORATORY Final Result [facility] [place] [address], * (ABNORMAL) COMPREHENSIVE METABOLIC PANEL (07/17/2025 9:25 AM CDT) SODIUM S/P/B 136 136 - 145 MMOL/L 07/17/2025 10:03 AM CDT [facility] POTASSIUM S/P/B 5.1 3.5 - 5.1 MMOL/L 07/17/2025 10:03 AM CDT [facility] Comment:SLIGHT HEMOLYSIS, RE SULT MAY BE AFFECTED. CHLORIDE S/P/B 103 98 - 107 MMOL/L 07/17/2025 10:03 AM CDT [facility] CO2 26.1 21.0 - 32.0 MMOL/L 07/17/2025 10:03 AM [facility] GLUCOSE 132(H) 70 - 99 MG/DL 07/17/2025 10:03 AM [facility] Comment: FASTING GLUCOSE 100 TO 125 MG/DL IS CONSISTENT WITH IMPAIRED FASTING GLUCOSE. FASTING GLUCOSE >125 MG/DL IS CONSISTENT WITH DIABETES. RANDOM GLUCOSE >200 MG/DL WITH HYPERGLYCEMIC SYMPTOMS IS CONSISTENT WITH DIABETES. PER ADA GUIDELINES BUN 15 6 - 24 MG/DL 07/17/2025 10:03 AM [facility] CREATININE S/P/B 0.75 0.70 - 1.30 MG/DL 07/17/2025 10:03 AM [facility] CALCIUM S/P/B 8.9 8.4 - 10.5 MG/DL 07/17/2025 10:03 AM [facility] BILIRUBIN TOTAL S/P/B 0.3 0.2 - 1.0 MG/DL 07/17/2025 10:03 AM [facility] Comment: THIS ASSAY IS NOT RECOMMENDED FOR PATIENTS UNDERGOING TREATMENT WITH ELTROMBOPAG DUE TO THE POTENTIAL FOR FALSELY ELEVATED RESULTS. ALKALINE PHOSPHATASE S/P/B 118(H) 45 - 115 U/L 07/17/2025 10:03 AM [facility] AST 27 15 - 37 U/L 07/17/2025 10:03 AM [facility] Comment:SLIGHT HEMOLYSIS, RE SULT MAY BE AFFECTED. ALT 43 16 - 63 U/L 07/17/2025 10:03 AM [facility] TOTAL PROTEIN S/P/B 6.5 6.4 - 8.2 G/DL 07/17/2025 10:03 AM [facility] ALBUMIN S/P/B 3.3(L) 3.4 - 5.0 G/DL 07/17/2025 10:03 AM [facility] ANION GAP 6.9 5.0 - 15.0 MMOL/L 07/17/2025 10:03 AM [facility] OSMOLALITY (CALC) 285 MOSM/KG 09/19/2 025 10:03 AM CDT [facility] Comment:REFERENCE RANGE NOT ESTABLISHED GFR ESTIMATE >90 >89 ML/MIN/1. 73 M2 07/17/2025 10:03 AM CDT [facility] GFR NOTES GFR REFERENCE S: 07/17/2025 10:03 AM CDT [facility] Comment: THE ESTIMATED GFR IS CALCULATED [...] us Jyothi Park DO LABORATORY Final Result [facility] [address] [place] [address], * D-DIMER, QUANTITATIVE (07/17/2025 9:25 AM CDT) D-DIMER <215 0 - 500 ng{FEU}/mL 07/17/2025 10:09 AM CDT [facility] Comment: D-Dimer values less than or [...] findings. 07/17/2025 9:25 AM CDT us Jyothi A Wagnon DO LABORATORY Final Result [facility] [address] [place] [address], * (ABNORMAL) CBC W/DIFF AUTOMATED (07/17/2025 9:25 AM CDT) WBC 6.09 4.00 - 10.80 x10'3/uL 07/17/2025 9:45 AM CDT [facility] RBC 5.57 4.50 - 6.10 x10'6/uL 07/17/2025 9:45 AM CDT [facility] HGB 16.3 13.0 - 18.0 G/DL 07/17/2025 9:45 AM CDT [facility] HCT 47.7 37.0 - 52.0 % 07/17/2025 9:45 AM CDT [facility] MCV 85.6 78.0 - 100.0 FL 07/17/2025 9:45 AM CDT [facility] MCH 29.3 27.0 - 31.0 PG 07/17/2025 9:45 AM CDT [facility] MCHC 34.2 33.0 - 36.0 G/DL 07/17/2025 9:45 AM CDT [facility] RDW 14.1 11.5 - 14.5 % 07/17/2025 9:45 AM CDT [facility] PLT 181 150 - 350 x10'3/uL 07/17/2025 9:45 AM CDT [facility] MPV 10.8(H) 7.4 - 10.4 FL 07/17/2025 9:45 AM CDT [facility] CBC COMMENT NORMAL REFERENCE RANGE NOT ESTABLISHED FOR THE PROPORTIONAL LEUKOCYTE DIFFERENTIAL. 07/17/2025 9:45 AM CDT [facility] NEUTROPHILS % 44.4 % 07/17/2025 9:45 AM CDT [facility] LYMPHOCYTES % 37.6 % 07/17/2025 9:45 AM CDT [facility] MONOCYTES % 15.1 % 07/17/2025 9:45 AM CDT [facility] EOSINOPHILS % 1.5 % 07/17/2025 9:45 AM CDT [facility] BASOPHILS % 1.1 % 07/17/2025 9:45 AM CDT [facility] IMMATURE GRANS % 0.3 % 07/17/20 9:45 AM CDT [facility] NRBC % 0.0 % 07/17/2025 9:45 AM CDT [facility] ABS. NEUTROPHILS 2.70 1.60 - 8.30 x10'3/uL 07/17/2025 9:45 AM CDT [facility] ABS. LYMPHOCYTES 2.29 0.80 - 4.70 x10'3/uL 07/17/2025 9:45 AM CDT [facility] ABS. MONOCYTES 0.92 0.00 - 1.50 x10'3/uL 07/17/2025 9:45 AM CDT [facility] ABS. EOSINOPHILS 0.09 0.00 - 0.40 x10'3/uL 07/17/2025 9:45 AM CDT [facility] ABS. BASOPHILS 0.07 0.00 - 0.20 x10'3/uL 07/17/2025 9:45 AM CDT [facility] ABS. IMMATURE GRANULOCYTES 0.02 0.00 - 0.03 x10'3/uL 07/17/2025 9:45 AM CDT [facility] ABS. NUCLEATED RBC'S 0.00 0.00 - 0.01 x10'3/uL 07/17/2025 9:45 AM CDT [facility] 07/17/2025 9:25 AM CDT us Jyothi Park DO LABORATORY Final Result [facility] [address] [place] [address], * (ABNORMAL) URINALYSIS (07/17/2025 9:13 AM CDT) COLOR (U) YELLOW 07/17/2025 9:33 AM CDT [facility] TRANSPARENCY CLEAR 07/17/2025 9:33 AM CDT [facility] SPECIFIC GRAVITY (U) 1.010 1.000 - 1.025 07/17/2025 9:33 AM CDT [facility] U PH 5.5 5.0 - 8.0 07/17/2025 9:33 AM CDT [facility] LEUKOCYTES (U) NEGATIVE NEGATIVE 07/17/2025 9:33 AM CDT [facility] NITRITES NEGATIVE NEGATIVE 07/17/2025 9:33 AM CDT [facility] PROTEIN RANDOM (U) NEGATIVE NEGATIVE 07/17/2025 9:33 AM CDT [facility] GLUCOSE (U) 2+(A) NEGATIVE 07/17/2025 9:33 AM CDT [facility] KETONES MG/DL (U) NEGATIVE NEGATIVE 07/17/2025 9:33 AM CDT [facility] UROBILINOGEN 0.2 <1.0 EU/DL 07/17/2025 9:33 AM CDT [facility] BILIRUBIN (U) NEGATIVE NEGATIVE 07/17/2025 9:33 AM CDT [facility] BLOOD (U) NEGATIVE NEGATIVE 07/17/2025 9:33 AM CDT [facility] WBC/HPF 0-5 0 - 5 /HPF 07/17/2025 9:33 AM CDT [facility] RBC/HPF 0-5 0 - 5 /HPF 07/17/2025 9:33 AM CDT [facility] EPI/LPF RARE /LPF 07/17/2025 9:33 AM CDT [facility] BACTERIA (U) TRACE /HPF 07/17/2025 9:33 AM CDT [facility] URINE SPECIMEN OBTAINED BY CLEAN CATCH PROCEDURE / Unknown 07/17/2025 9:13 AM CDT us Jyothi A Wagnon DO URINE ORDERABLES Final Result Performing Organization Address [facility]/ZIP Co de Phone Number [facility] [address] [place] [address], * CORONAVIRUS (COVID-19) ANTIGEN (07/17/2025 9:10 AM CDT) CORONAVIRUS ANTIGEN IA NEGATIVE NEGATIVE 07/17/2025 9:39 AM CDT [facility] Comment: NEGATIVE RESULTS DO NOT RULE [...] SPECIMEN TYPE NASAL 07/17/2025 9:10 AM CDT [facility] NASAL NASAL STRUCTURE / Unknown 07/17/2025 9:10 AM CDT Jyothi Park DO MICROBIOLOGY - GENERAL ORDERABLE S Final Result Performing Organization Address [facility] Co de Phone Number [facility] [address] [place] [address], * INFLUENZA A & B (07/17/2025 9:10 AM CDT) SPECIMEN TYPE (INFLUENZA) NASAL 07/17/2025 9:10 AM CDT [facility] INFLUENZA A NEGATIVE NEGATIVE 07/17/2025 9:39 AM CDT [facility] INFLUENZA B NEGATIVE NEGATIVE 07/17/2025 9:39 AM CDT [facility] Comment: A NEGATIVE RESULT DOES NOT EXCLUDE INFLUENZA VIRUS INFECTION. IF INFLUENZA IS CIRCULATING IN YOUR COMMUNITY, A DIAGNOSIS OF INFLUENZA SHOULD BE CONSIDERED BASED ON A PATIENT'S CLINICAL PRESENTATION AND EMPIRIC ANTIVIRAL TREATMENT SHOULD BE CONSIDERED IF INDICATED. NASAL STRUCTURE / Unknown 07/17/2025 9:10 AM CDT us Jyothi Park DO MICROBIOLOGY - GENERAL ORDERABLE S Final Result Performing Organization Address City/[facility]/ZIP Co de Phone Number [facility] [place] [address], * RESP SYNCYTIAL VIRUS (07/17/2025 9:10 AM CDT) SPECIMEN TYPE NASOPHARYNGEAL SWAB 07/17/2025 9:10 AM CDT [facility] RSV NEGATIVE NEGATIVE 07/17/2025 9:39 AM CDT [facility] NASOPHARYNGEAL SWAB / Unknown 07/17/2025 9:10 AM CDT Jyothi Park DO MICROBIOLOGY - GENERAL ORDERABLE S Final Result Performing Organization Address [facility] Co de Phone Number [facility] [place] [address], from Last 3 Months Insurance [facility] [employer]ICA[employer] Care Teams Cane Pusher Relationship Specialty Start Date End Date Matthew Sorenson PA PCP - General PHYSICIAN HEALTH SCIENCES DEPARTMENT CHAIR 12/17/24
--- OUTSIDE RECORDS SUMMARY | 2025-10-14 08:26 | XMS_ITS ---
Author Organization [facility] Address [address] [place] [address] Care Team Providers Care Rn Document Improvement Name Role Phone Matthew Sorenson Primary Care Provider [phone] Active Problems Problem Noted Date Diagnosed Date [...]
--- OUTSIDE RECORDS SUMMARY | 2025-10-14 08:26 | XMS_ITS | Clinical Summary ---
Author Organization [facility] Address [address] [place] [address] Care Team Providers Care Food And Beverage Controller Name Role Phone Matthew Sorenson Primary Care Provider [phone] Source Comments [facility],non-owned Affiliates and Associated Physician Practices is amultiple site organization consisting of ambulatory clinics and hospital sitesin [place], [place], [place] and [place]. This disclosure is being madepursuant to the Care Everywhere program and may not contain all information available regarding this patient. Last updated 18.[facility] Allergies Active Allergy Reactions Criticality Noted Date [...] verio strips, Reported on 08/18/2025 Continuous Glucose Component Design Engineer (Dexcom G7 Component Design Engineer) SONIA as directed Act khari Continuous [...] once daily Activ e TRUEplus 5-Bevel Pen Bertrand 31G X 6 MM [facility] USE TO INJECT INSULIN 3 TIMES DAILY [...] Department Care Team Description 09/22/2025 1:00 PM VENEER STOCK GRADER Office Visit [facility] - Infectious Disease [address] [place] [address] Cristian Mcmillan MD MRSA bacteremia (Primary Dx); Chronic hepatitis C without hepatic coma (HCC); Acute on chronic low back pain; Orthopedic hardware present; Multiple myeloma not having achieved remission (HCC); Chest wall abscess; History of illicit drug use; Hepatic 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 [address] Janice Lynn MD Discharge Disposition: Home or Self Care 09/22/2025 11:03 AM VENEER STOCK GRADER - 09/22/2025 11:59 PM VENEER STOCK GRADER Hospital Encounter [facility] [address] [place] [address] Janice Lynn MD Discharge Disposition: Home or Self Care 09/22/2025 10:15 AM VENEER STOCK GRADER Office Visit [facility] - Orthopedics [address] [place] [phone] Janice Lynn MD Pain of right hand (Primary Dx); Ulnar tunnel syndrome, right; Trigger finger, right ring finger 09/22/2025 Travel 09/20/2025 Refill [facility] [address] [place] [address] Perri Dexter APRN-CNP Refill Request 09/07/2025 Telephone [facility] - Neurology [address] [place] [phone] Mary Vargas APRN-CNP Referral 08/18/2025 1:00 PM CDT Office Visit [facility] - Neurology [address] [place] [phone] Mary Vargas APRN-CNP Carpal tunnel syndrome of [...] Recorded Patient Health Questionnaire-2 Score 0 09/22/2025 [facility] - Occupational [...] on file Legal Sex Male 11:44 AM VENEER STOCK GRADER Gender Identity Not on file Sexual Orientation Not on file Last Filed Vital Signs Vital Sign Reading Time Taken Comments Blood Pressure 110/76 09/22/2025 1:12 PM VENEER STOCK GRADER Pulse 75 09/22/2025 1:12 PM VENEER STOCK GRADER Temperature 36.5 C (97.7 F) 09/22/2025 1:12 PM VENEER STOCK GRADER Respiratory Rate 16 05/31/2025 9:06 AM CDT Oxygen Saturation 95% 09/22/2025 1:12 PM VENEER STOCK GRADER Inhaled Oxygen Concentration 21% 02/19/2025 1 :30 PM CDT Weight 116.2 kg (256 lb 3.2 oz) 09/22/2025 1:12 PM VENEER STOCK GRADER Height 182.9 cm (6') 09/22/2025 1:12 PM VENEER STOCK GRADER Body Mass Index 34.75 09/22/2025 1:12 PM VENEER STOCK GRADER Plan of Treatment Upcoming Encounters Date Type Department Care Team (Late st Contact Info) Description 11/24/2025 8:30 AM VENEER STOCK GRADER Office Visit [facility] - Orthopedics [address] [place] [phone] Janice Lynn MD [address] [place] [phone] 02/18/2026 1:00 PM CDT Video Visit [facility] - Infectious Disease [address] [place] [phone] Cristian Mcmillan MD [address] [place] [phone] Health Maintenance Due Date Last Done Comments [...] this topic Medical Devices Implanted Type Area Medical Lab Assistant Device Identifier Shelf Expiration Date Model / Serial / Lot Kit Spnl 5.8mm Spinejack Implanted:Qty: 1 on 07/22/2024 by Arya Rm MD at [facility] N/A: Spine Lumbar Dottie Spine 10/28/2024 [id number] / / [id number] Kit Bone Cmnt Vertaplex Hv Autoplex Wo Implanted:Qty: 1 on 07/22/2024 by Arya Rm MD at [facility] N/A: Spine Lumbar [place] Spine 05/29/2025 [id number] / / [id number] Port Implinfn Powerport Clrvu Argd Nya Implanted:Qty: 1 on 08/20/2024 by Vic Callahan MD at [facility] Right: Chest Wall Bard Peripheral Vascular 08/28/2025 [id number] / / [id number] Mixer Bone Cmnt Kyphon C20gm Ll Fit Implanted:Qty: 1 on 12/02/2024 by Arya Rm MD at [facility] N/A: Spine Lumbar Kyphon Inc [id number] / / Cmnt Bone Hv-R Kphx Mxr Grad Mrk Dspns Implanted:Qty: 1 on 12/02/2024 by Arya Rm MD at [facility] N/A: Spine Lumbar Kyphon Inc [id number] / / Graft Bone Grftn Dbm Plif 10x2.5cm Implanted:Qty: 1 on 12/02/2024 by Arya Rm MD at [facility] N/A: Spine Lumbar Osteotech Inc [id number] / / Ezekiel Spnl 500mm 5.5mm Cd Hzn Str Ti Ln Cp Implanted:Qty: 1 on 12/02/2024 by Arya Rm MD at [facility] N/A: Spine Lumbar Medtronic Inc [id number] / / Graft Bone Grftn Dbm Aspt 5x2.5cm Post Implanted:Qty: 1 on 12/02/2024 by Arya Rm MD at [facility] N/A: Spine Lumbar Medtronic Inc [id number] / / Screw Set Ti Spnl Brk Off Cd Hzn Nonster Implanted:Qty: 8 on 12/02/2024 by Arya Rm MD at [facility] N/A: Spine Lumbar Medtronic Inc [id number] / / Screw 7.5mm 55mm Ma Spne Solera Cd Hzn Implanted:Qty: 2 on 12/02/2024 by Arya Rm MD at [facility] N/A: Spine Lumbar Medtronic Inc [id number] / / Screw 7.5mm 50mm Ma Spne Solera Cd Hzn Implanted:Qty: 6 on 12/02/2024 by Arya Rm MD at [facility] Medtronic Inc [id number] / / Slnt Dura Duraseal Pg Trilysine Amine 5 Implanted:Qty: 1 on 12/02/2024 by Arya Rm MD at [facility] N/A: Spine Lumbar Integra BidKindciAkita Thang / / Explanted Type Area Medical Lab Assistant Device Identifier Shelf Expiration Date Model / Serial / Lot Kit Osteocool Srg 10ga Bone Acc Explanted:Qty: 2 on 07/22/2024 by Arya Rm MD at [facility] N/A: Spine Lumbar Medtronic Inc [id number] / / [id number] Description:Access device, n ot an implant. No other options in system Probe 17ga 20mm Rf Eltx Osteocool 2mm Explanted:Qty: 1 on 07/22/2024 by Arya Rm MD at [facility] N/A: Spine Lumbar Medtronic Inc 03/26/2027 [id number] / / [id number] Description:Access device, n ot an implant. No other options in system Procedures Procedure Name Priority Date/Time Associated Diagnosis Comments XR FOREARM RIGHT 2VW OR MORE Routine 09/22/2025 11:15 AM VENEER STOCK GRADER Pain of right hand XR HAND RIGHT 3VW OR MORE Routine 09/22/2025 11:14 AM VENEER STOCK GRADER Pain of right hand RENAL FUNCTION PANEL [...] Right 2Vw or More (09/22/2025 11:15 AM VENEER STOCK GRADER) Anatomical Region Laterality Modality Upper Extremity Radiographic Lily ging 09/22/2025 11:1 6 AM VENEER STOCK GRADER Impressions 09/22/2025 11:35 AM VENEER STOCK GRADER IMPRESSION: No acute radial or ulnar fracture identified. Report dictated by Dano Francois MD, (president ergonomic consulting). > Dictated by Process Development Chemist IAlthea MD have personally reviewed and interpreted this examination/study. > Interpreting Provider: Althea Hills MD on 09/22/2025 11:35 AM Narrative 09/22/2025 11:35 AM VENEER STOCK GRADER PROCEDURE: XR FOREARM RIGHT 2VW OR MORE, DATE/TIME OF EXAM: 09/22/2025 11:15 AM, LOCATION [facility] INDICATION: M79.641: Pain of right hand ADDITIONAL [...] DATE/TIME OF EXAM: 09/22/2025 11:15 AM, LOCATION [facility] INDICATION: M79.641: Pain of right hand ADDITIONAL CLINICAL INFORMATION: Ordering Provider Reason For Exam: hx MM Technologist Note: Additional: COMPARISON: None. FINDINGS: The radius and ulna are intact without evidence of acute fracture. Bone density and texture are normal. No soft tissue swelling is present. IMPRESSION: No acute radial or ulnar fracture identified. Report dictated by Dano Francois MD, (president ergonomic consulting). > Dictated by Process Development Chemist IAlthea MD have personally reviewed and interpreted this examination/study. > Interpreting Provider: Althea Hills MD on 09/22/2025 11:35 AM us Janice Lynn MD DIAGNOSTIC IMAGING ORDERABLES F inal Result * XR Hand Right 3Vw or More (09/22/2025 11:14 AM VENEER STOCK GRADER) Anatomical Region Laterality Modality Wrist / Hand Radiographic Lily ging 09/22/2025 11:1 5 AM VENEER STOCK GRADER Impressions 09/22/2025 11:42 AM VENEER STOCK GRADER IMPRESSION: No acute fracture or dislocation identified. Report dictated by Dano Francois MD, (president ergonomic consulting). > Dictated by Process Development Chemist I, Althea Hills MD have personally reviewed and interpreted this examination/study. > Interpreting Provider: Althea Hills MD on 09/22/2025 11:42 AM Narrative 09/22/2025 11:42 AM VENEER STOCK GRADER PROCEDURE: XR HAND RIGHT 3VW OR MORE, DATE/TIME OF EXAM: 09/22/2025 11:15 AM, LOCATION [facility] INDICATION: M79.641: Pain of right hand ADDITIONAL [...] MORE, DATE/TIME OF EXAM: 1:15 AM, LOCATION [facility] INDICATION: M79.641: Pain of right hand ADDITIONAL [...] identified. Report dictated by Dano Francois MD, (president ergonomic consulting). > Dictated by Process Development Chemist I, Althea Hills MD have personally reviewed and interpreted this examination/study. > Interpreting Provider: Althea Hills MD on 09/22/2025 11:42 AM us Janice Lynn MD DIAGNOSTIC IMAGING ORDERABLES F inal Result * (ABNORMAL) RENAL FUNCTION PANEL (05/31/2025 6:56 AM [facility]) BUN 14 7 - 26 mg/dL 05/31/2025 8:02 AM [facility] Creatinine 0.74 0.71 - 1.16 mg/dL 05/31/2025 8:02 AM [facility] Sodium 138 136 - 145 mmol/L 05/31/2025 8:02 AM [facility] Potassium 3.8 3.5 - 4.5 mmol/L 05/31/2025 8:02 AM [facility] Chloride 108(H) 98 - 107 mmol/L 05/31/2025 8:02 AM [facility] CO2 26 22 - 29 mmol/L 05/31/2025 8:02 AM [facility] Glucose 120(H) 70 - 99 mg/dL 05/31/2025 8:02 AM [facility] Albumin 4.0 3.4 - 5.0 g/dL 05/31/2025 8:02 AM [facility] Calcium 8.7 8.4 - 10.2 mg/dL 05/31/2025 8:02 AM [facility] Phosphorus 3.5 2.8 - 5.1 mg/dL 05/31/2025 8:02 AM [facility] Anion Gap 4(L) 6 - 16 05/31/2025 8:02 AM [facility] BUN/Creatinine Ratio 19 7 - 23 05/31/2025 8:02 AM [facility] Osmolality Calculated 288 275 - 295 mOsm/kg 05/31/2025 8:02 AM [facility] eGFR by CKD-EPI >90 >=90 mL/min/1.7 3 m2 05/31/2025 8:02 AM [facility] Comment:Estimated Glomerular Filtration Rate (eGFR) calculated using the CKD-EPI Creatinine Equation (2020), per the National Kidney Foundation and [place] Society of Nephrology recommendations. Blood BLOOD SPECIMEN / Unknown Lab Venipuncture / Unknown 05/31/2025 6:56 AM CDT 05/31/2025 7:31 AM CDT Cristian Garcia MD LAB - CHEMISTRY ORDERABLES Fi nal Result [address] [address], [facility] [phone] * HEPATITIS C RNA QUANTITATIVE (05/29/2025 7:04 AM CDT) Pathologist [facility] Hepatitis C RNA PCR, Interp Not detected Not detected 06/01/2025 10:14 AM CDT [facility] Hepatitis C Quant by PCR, Log NA log IU/mL 06/01/2025 10:14 AM CDT [facility] Blood BLOOD SPECIMEN / Unknown Lab Venipuncture / Unknown 05/29/2025 7:04 AM CDT 05/29/2025 8:58 AM CDT Narrative [facility] - 06/01/2025 10:14 AM CDT The Hepatitis C viral (HCV) RNA analysis utilized a serum sample, real-time reverse automobile mechanic PCR, and is reported as Not Detected, [...] the isolation of HCV RNA with reverse automobile mechanic of genomic HCV RNA followed by real-time PCR in the presence of an unrelated RNA internal control. The internal control ensures that RNA is isolated, and that no general significant inhibitors of the RT-PCR process are present. The analysis was performed using a U.S. FDA approved test methodology Nahum gomez HCV. Robb Wakefield MD LAB - CHEMISTRY ORDERABLES Final Result [facility] [address] [place] [address], [facility] [phone] * (ABNORMAL) HEMOGLOBIN A1C (05/29/2025 7:04 AM CDT) Hemoglobin A1c 6.1(H) <=5.6 % 05/29/2025 11:58 AM CDT [facility] Estimated Average Glucose 128 mg/dL 05/29/2025 11:58 AM CDT [facility] Comment: HbA1c Interpretation: Normal : < 5.7% Pre-diabetes: 5.7-6.4% Diabetes: Equal to or greater than 6.5% Test results diagnostic of diabetes should be repeated for confirmation. Treatment target values recommended by ADA and other clinical organizations should be used to evaluate metabolic control in patients. Reference: [place] Diabetes Association, Standards of Care in Diabetes [...] LAB - CHEMISTRY ORDERABLES Fi nal Result [facility] [address] [place] [address], [place] [phone] * MICROALB/CREAT RATIO URINE RANDOM PANEL (06/28/2024 6:31 AM CDT) Albumin Random Urine <5.0 Not Established ug/mL 06/28/2024 9:49 PM CDT [facility] Creatinine Urine 82.62 Not Established mg/dL 06/28/2024 9:49 PM CDT [facility] Urine Albumin/Creati nine Ratio <6 <30 mg/g 06/28/2024 9:49 PM CDT [facility] Albumin/Creati nine Ratio Urine See Comment <30 mg/g 06/28/2024 9:49 PM CDT [facility] Comment:Unable to calculate the Urine Albumin/Creatinine Ratio due to one or more analyte concentration(s) being outside the measuring limits of the instrument. Urine URINE SPECIMEN OBTAINED BY CLEAN CATCH PROCEDURE / Unknown Collection / Unknown 06/28/2024 6:31 AM CDT 06/28/2024 7:54 PM CDT us Robb Gomez MD LAB - URINE CHEMISTRY ORDERA BLES Final Result [address] [address], [place] [phone] * HIV-1 HIV-2 ANTIBODY + HIV P24 AG PANEL (06/06/2024 11:59 AM CDT) HIV Antigen/Antibod y 1 & 2 Non-reacti ve Non-react khari 06/06/2024 12:58 PM CDT [facility] Comment:No Laboratory eviden ce of HIV infection. Blood BLOOD SPECIMEN / Unknown Lab Venipuncture / Unknown 06/06/2024 11:59 AM CDT 06/06/2024 12:07 PM CDT us Gina Burt MD LAB - CHEMISTRY ORDERABLES Final Result Performing Organization Address City/[facility]/ZIP Co de Phone Number [address] [address], [place] [phone] from Last 3 Months or Most Recently Relevant to Health Maintenance Additional Health Concerns Infection Onset Date Last Indicated 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 Insurance [facility] Advance Directives Documents on File Type Date Recorded Patient Patent Leather Sorter Expl anation Adv Directive/Living Will/POA 08/13/2024 1:30 [...] 10:06 PM 10/01/2024 2:14 PM Care Teams Food And Beverage Controller Relationship Specialty Start Date End Date Matthew Sorenson PA [address] [place] [address] PCP - General 02/02/22
--- OUTSIDE RECORDS SUMMARY | 2025-10-14 08:26 | XMS_ITS | Encounter Summary ---
Author Organization [facility] Address [address] [place] [address] Care Team Providers Care Data Technician Name Role Phone Matthew Sorenson Primary Care Provider [phone] Jose Luis Brooks MD Unavailable [phone] Abelardo Presley MD Unavailable [phone] Bo Francisco MD Unavailable [phone] Angie Rogers MD Unavailable Katie Gutierrez PharmD Unavailable Unavailab le Jaja Rayo RN Unavailable Unavailable Abimbola Waters SHOE SPRAYER-HOUSEKEEPING DIRECTOR Unavailable Perri Dexter SHOE SPRAYER-HOUSEKEEPING DIRECTOR Unavailable [phone] Marilyn Bennett RN Unavailable Unavailable Erasmo Roberson RN Unavailable Unavailable Alexandra Cota RN Unavailable Unavailable Alda Braswell Unavailable Unavailable Lucia Sharif LCSW Unavailable Unavailab le Reason for Visit * Reason Onset Date Comments MEDICATION REFILL 10/20/2024 Encounter Details Date Type Department Care Team (Late st Contact Info) Description 10/20/2024 Refill [facility] [address] [place] [address] Gina Denton MD [address] [place] [address] MEDICATION REFILL Social History Tobacco [...] Recorded Patient Health Questionnaire-2 Score 1 08/12/2024 [facility] - Occupational [...] any time in the past 12 m [facility], were you homeless or living in a fci (including now)? No 10/24/2024 Sex and Gender Information Value Date Recorded Sex Assigned at Not on file Legal Sex Male 11:44 AM BARK SPUDDER Gender Identity Not on file Sexual Orientation [...] st Contact Info) Description 11/24/2025 8:30 AM BARK SPUDDER Office Visit [facility]opedics [facility] [place] [address] Janice Lynn MD [address] [place] [phone] 02/18/2026 1:00 PM CDT Video Visit [facility] - Infectious Disease [address] [place] [phone] Cristian Mcmillan MD [address] [place] [phone] documented as of this encounter Visit Diagnoses Not on filedocumented in this encounter Additional Health Concerns Infection Onset Date Last Indicated Resolved Time 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 CDIFF Under Investigation 01/13/2025 01/13/2025 7:19 PM CDT COVID-19 Under Investigation 01/13/2025 01/13/2025 01/13/2025 4:01 PM CDT COVID-19 Under Investigation 02/12/2025 02/12/2025 02/12/2025 4:07 PM CDT documented as of this encounter Care Teams Data Technician Relationship Specialty Start Date End Date Matthew Sorenson PA [address] [place] [address] PCP - General 02/02/22 Jose Luis Brooks MD [facility] [place] [address] Director Airport Operations/Oncologis t Hematology and Oncology 08/29/24 05/27/25 Abelardo Presley MD [address] [place] [address] Hematology and Oncology 08/29/24 03/04/25 Bo Francisco MD [address] [place] [phone] Hematology and Oncology 08/29/24 03/04/25 Angie Rogers MD [address] [place] [phone] Physician Hematology and Oncology 08/29/24 03/04/25 Katie Gutierrez, PharmD 08/29/24 03/04/25 Jaja Rayo, RN Registered Nurse 08/29/24 03/04/25 Abimbola Waters APRN-CNP [address] [place] [address] Nurse Practitioner Nurse Practitioner 08/29/24 03/04/25 Perri Dexter APRN-CNP [address] [place] [address] Nurse Practitioner Nurse Practitioner 08/29/24 03/04/25 Marilyn Bennett, LOLI Coordinator 08/29/24 05/27/25 Erasmo Roberson, RN Registered Nurse 08/29/24 03/04/25 Alexandra Cota RN Registered Nurse 08/29/24 03/04/25 Alda Braswell 08/29/24 03/04/25 Lucia Sharif LCSW Silk Screener 08/29/24 03/04/25 documented as of this encounter
--- OUTSIDE RECORDS SUMMARY | 2025-10-14 08:26 | XMS_ITS | Clinical Summary ---
Author Organization [facility] Address [address] [address] Phone Care Team Providers Care Vacation Sales Advisor Name Role Phone Matthew Sorenson Primary Care Provider [phone] Allergies Active Allergy Reactions Criticality Noted Date Comments Morphine Itching 06/01/2025 Family History Medical History Relation Name Comments [...] Influenza Immunization (#1) 2025 SARS-COV-2 Immunization ( season) 2025 Respiratory Syncytial Virus (RSV) Immunization (Adult) (1 - 1-dose 75+ series) 2053 Hepatitis C Virus (HCV) Screening Discontinued 024 Human Papillomavirus (HPV) Immunization (No Doses Required) Completed Meningococcal Immunization (ACWY) Aged Out No longer eligible based on patient's age to complete this topic Rotavirus Immunization Aged Out No lo nger eligible based on patient's age to complete this topic Insurance MEDICAID [employer] [facility] Care Teams Vacation Sales Advisor Relationship Specialty Start Date End Date Matthew Sorenson PAC [address] [place] [address] PCP - General Physician Football Scout 04/27/25
[2025-10-14 08:34] LABS: Hematocrit 46.9 % (40.0-54.0); Hemoglobin 15.6 g/dL (14.0-18.0); Immature Granulocyte Percent A 0.3 % (0.0-0.0); Lymphocytes Absolute Auto 3.80 K/mm3 (1.10-4.50); Mean Corpuscular HGB Conc 33.3 g/dL (32-36); Mean Corpuscular Hemoglobin 30.1 pg (27.0-31.0); Mean Corpuscular Volume 90.4 fL (78.0-102.0); Nucleated Red Blood Cells Absolute Auto 0.00 K/mm3 (0.00-0.00); Nucleated Red Blood Cells Perc 0.0 % (0-0.0); Platelet Count Result 220 K/mm3 (150-420); Red Blood Count 5.19 M/mm3 (4.70-6.10); White Blood Count 10.0 K/mm3 (4.8-10.8)
[2025-10-14 08:36] VITALS: BP 132/70; PULSE 80; RESP 16; TEMP 36.6; O2SAT 97; BMI 33.7
[2025-10-14 08:50] LABS: Alanine Aminotransferase 31 U/L (6-50); Albumin Level 4.5 g/dL (3.5-5.1); Alkaline Phosphatase 84 U/L (38-126); Anion Gap 11 mmol/L (4-12); Aspartate Amino Transferase 31 U/L (17-59); Bilirubin,Total 0.5 mg/dL (0.2-1.3); Blood Urea Nitrogen 13 mg/dL (9-20); Calcium 8.9 mg/dL (8.4-10.2); Carbon Dioxide 22 mmol/L (22-30); Chloride 107 mmol/L (98-107); Estimated CRCL calculation 140 ml/min; Estimated Glomerular Filt Rate > 60; Glucose 241 mg/dL (65-110); Osmolality Calculated 298 mOsm/kg (285-295); Potassium 4.0 mmol/L (3.4-5.0); Sodium 140 mmol/L (137-145); Total Protein 6.6 g/dL (6.3-8.2)
[2025-10-14] MEDS: FAMOTIDINE 20 MG TABLET PO (08:50)
[2025-10-14] MEDS: ACETAMINOPHEN 325 MG TABLET 650 MG PO (08:50)
[2025-10-14] MEDS: diphenhydrAMINE HCl CAP 25 MG CAPSULE PO (08:50)
[2025-10-14] MEDS: DARATUMUMAB-HYALURONIDASE-FIHJ 1,800 MG-30,000 UNITS VIAL 15 ML SUB-Q (09:11)
--- NOTE | 2025-10-14 11:10 | PC.NURSE ---
1011 Patient tolerated injection well. SEE MAR/patient care notes.
== END 2025-10-14 08:11 | disposition home or self-care (01) ==
PROVIDERS: PCP Internal Medicine Hematology; Visit Provider Internal Medicine Hematology
DX: Z51.11 Encounter for antineoplastic chemotherapy (principal); C90.00 Multiple myeloma not having achieved remission
CPT/HCPCS: 36415; 80053; 85025; 96401; A9270; J8540; J9144

== ENCOUNTER 2025-10-28 08:17 | Outpatient (CLI) | payer OTHER, SELFPAY ==
--- OUTSIDE RECORDS SUMMARY | 2025-10-28 08:24 | XMS_ITS | Clinical Summary ---
Author Organization [facility] Address [address] [place] [address] Care Team Providers Care Wool Brusher Name Role Phone Matthew Sorenson Primary Care Provider [phone] Matthew Sorenson Unavailable [phone] Allergies Active Allergy Reactions Criticality Noted [...] on file Legal Sex Male 10:04 AM CULTURAL ANTHROPOLOGY PROFESSOR Gender Identity Not on file Sexual [...] LAB BLOOD ORDERABLES Final Resul t [facility] Department [place] [address] from Last 3 Months or Most Recently Relevant to Health Maintenance Insurance [facility] Care Teams Wool Brusher Relationship Specialty Start Date End Date Matthew Sorenson PA [address] [place] [address] PCP - General Family Practice 05/04/23 Matthew Sorenson PA [address] [place] [address] Family Practice 09/12/22
--- OUTSIDE RECORDS SUMMARY | 2025-10-28 08:25 | XMS_ITS | Clinical Summary ---
Author Organization [facility] Address [address] [address] Phone Care Team Providers Care Recoater Name Role Phone Matthew Sorenson Primary Care Provider [phone] Allergies Active Allergy Reactions Criticality Noted Date [...] to complete this topic Insurance MEDICAID [employer] [facility] Care Teams Recoater Relationship Specialty Start Date End Date Matthew Sorenson PAC [address] [place] [address] PCP - General Physician Professional Bass Fisher 04/27/25
--- OUTSIDE RECORDS SUMMARY | 2025-10-28 08:25 | XMS_ITS | Clinical Summary ---
Author Organization [facility] Address [facility] [place] [address] Care Team Providers Care Bead Wire Taper Name Role Phone Matthew Sorenson Primary Care Provider [phone] Allergies Active Allergy Reactions Criticality Noted Date Comments Morphine Itching 12/17/2024 Vancomycin Redness 12/17/2024 Medications Continuous Glucose Business Office Associate (DEXCOM G7 MASTER FISHER) Device see administration instructions. Active acyclovir (ZOVIRAX) [...] Active Continuous Glucose Sensor (DEXCOM G7 SENSOR) [facility] 12/15/19 25 Active dexamethasone (DECADRON) 4 MG [...] 2 (two) times daily as needed. Active Social History Tobacco Use Types Packs/Day Years Used Date Smoking Tobacco: Every Day Cigarettes Smokeless Tobacco: Never Tobacco Cessation:Ready to Q uit: Not Asked; Counseling Given: Not Answered Alcohol Use Standard Drinks/Week Comments Not Currently 0 (1 standard drink = 0.6 oz pur e alcohol) Sex and Gender Information Value Date Recorded Sex Assigned at Male 12/17/2024 8:02 PM FOOD COUNTER ATTENDANT Legal Sex Male 9:50 PM FOOD COUNTER ATTENDANT Gender Identity Not on file Sexual Orientation [...] patient's age to complete this topic Insurance [facility] MEDICAID Care Teams Bead Wire Taper Relationship Specialty Start Date End Date Matthew Sorenson PA PCP - General PHYSICIAN CARE SUPPORT REPRESENTATIVE 12/17/24
--- OUTSIDE RECORDS SUMMARY | 2025-10-28 08:25 | XMS_ITS | Continuity of Care Document ---
Author Organization [facility] DARINDilan [facility] Address [address] [place] [address] Care Team Providers Care Retail Sales Representative Name Role Phone ANASTACIO SORENSON Primary Care Provider Assessment No assessment recorded. Plan of Treatment Reminders Order Date Submit Date Provider Last Modified By Organization Details Last Modified Time Details Appointments None recorded. Lab None recorded. Referral None recorded. Procedures None recorded. Surgeries None recorded. Imaging electromyo gram + nerve conduction study 2024 025 [facility], [address] [place], [address], 09:28:53 Medication Orders tadalafil 20 mg tablet 2024 025 [facility]/Pharmacy #[id number], [address] [place], [address], 12:16:42 Patient TargetsNo targets recorded. Patient Instructions Encounter Date Encounter Id Patient Instructions Last Modified By Organization Details Last Modified Time 07/29/2025 [id number] learning about high blood pressure jnanney Not available 07/29/2025 12:16:01 A healthy lifestyle: care instructions jnanney Not available 07/29/2025 12:19:03 carpal tunnel syndrome: care instructions jnanney Not available 07/29/2025 12:16:00 carpal tunnel syndrome: exercises jnanney Not available 07/29/2025 12:16:00 Reason for Referral None Reported. Results Created Date Observation Date Name Description Value Unit Range Abnormal Flag Note LastModifiedBy Organization Detail LastModifiedTime 07/17/20 25 07/17/2025 lacti c acid, serum or plasm a lactic acid, serum or plasma 1.7 text: 0.4 - 2.0 mmol/L Not Available Not Available 07/29/2025 06:24:09 07/17/2007/17/2025 CMP, serum or plasm a sodium, serum or plasma 136 text: 136 - 145 mmol/L Not Available Not Available 07/29/2025 06:24:08 07/17/2007/17/2025 CMP, serum or plasm a potassium, serum or plasma 5.1 text: 3.5 - 5.1 mmol/L SLIGH T HEMOL YSIS, RESUL T MAY BE AFFEC LIBRADO. Not Available Not Available 07/29/2025 06:24:08 07/17/2007/17/2025 CMP, serum or plasm a chloride, serum or plasma 103 text: 98 - 107 mmol/L Not Available Not Available 07/29/2025 06:24:08 07/17/2007/17/2025 CMP, serum or plasm a CO2, (carbon dioxide), total, serum or plasma 26.1 text: 21.0 - 32.0 mmol/L Not Available Not Available 07/29/2025 06:24:08 07/17/20 25 07/17/2025 CMP, serum or plasm a glucose, qn [mass/volume ], serum or plasma 132 text: 70 - 99 mg/dL high FASTI NG GLUCO SE 100 TO 125 MG/DL IS CONSI STENT WITH IMPAI RED FASTI NG GLUCO SE. FASTI NG GLUCO SE >125 MG/DL IS CONSI STENT WITH DIABE REJI. RANDO M GLUCO SE >200 MG/DL WITH HYPER GLYCE MEEK SYMPT OMS IS CONSI STENT WITH DIABE REJI. PER ADA GUIDE LINES Not Available Not Available 07/29/2025 06:24:08 07/17/2007/17/2025 CMP, serum or plasm a BUN (blood urea nitrogen), serum or plasma 15 text: 6 - 24 mg/dL Not Available Not Available 07/29/2025 06:24:08 07/17/20 25 07/17/2025 CMP, serum or plasm a creatinine, serum or plasma 0.75 text: 0.70 - 1.30 mg/dL Not Available Not Available 07/29/2025 06:24:08 07/17/2007/17/2025 CMP, serum or plasm a calcium, serum or plasma 8.9 text: 8.4 - 10.5 mg/dL Not Available Not Available 07/29/2025 06:24:08 07/17/2007/17/2025 CMP, serum or plasm a bilirubin, total, serum or plasma 0.3 text: 0.2 - 1.0 mg/dL THIS ASSAY IS NOT RECOM ROJELIO D FOR PATIE NTS UNDER GOING TREAT MENT WITH ELTRO MBOPA G DUE TO THE POTEN TIAL FOR FALSE LY ELEVA LIBRADO RESUL TS. Not Available Not Available 07/29/2025 06:24:08 07/17/2007/17/2025 CMP, serum or plasm a alkaline phosphatase, serum or plasma 118 U/L low: 45U/Lh igh: 115U/L high Not Available Not Available 07/29/2025 06:24:08 07/17/20 25 07/17/2025 CMP, serum or plasm a AST/SGOT (aspartate aminotransfe rase), serum or plasma 27 U/L low: 15U/Lh igh: 37U/L SLIGH T HEMOL YSIS, RESUL T MAY BE AFFEC LIBRADO. Not Available Not Available 07/29/2025 06:24:08 07/17/2007/17/2025 CMP, serum or plasm a ALT (alanine aminotransfe rase), serum or plasma 43 U/L low: 16U/Lh igh: 63U/L Not Available Not Available 07/29/2025 06:24:08 07/17/2007/17/2025 CMP, serum or plasm a protein, total, serum 6.5 text: 6.4 - 8.2 g/dL Not Available Not Available 07/29/2025 06:24:07/17/2007/17/2025 CMP, serum or plasm a albumin, serum or plasma 3.3 text: 3.4 - 5.0 g/dL low Not Available Not Available 07/29/2025 06:24:08 07/17/20 25 07/17/2025 CMP, serum or plasm a anion gap, serum or plasma 6.9 text: 5.0 - 15.0 mmol/L Not Available Not Available 07/29/2025 06:24:08 07/17/2007/17/2025 CMP, serum or plasm a osmolality, calculation, serum or plasma (obs) 285 text: mOsm/k g REFER ENCE RANGE NOT ESTAB LISHE D Not Available Not Available 07/29/2025 06:24:08 07/17/2007/17/2025 CMP, serum or plasm a glomerular filtration rate/1.73 sq M predicted, qn, creatinine based formula (CKD-epi 2020), serum or plasma or blood >90 text: >89 mL/min /1.73 M2 Not Available Not Available 07/29/2025 06:24:08 07/17/2007/17/2025 CMP, serum or plasm a GFR notes GFR REFERE NCES: THE ESTIM ATED GFR IS CALCU LATED USING THE 2020 CKD-E PI EQUAT ION. THE FOLLO WING CATEG ORIES FOR GRADI NG RENAL FUNCT ION ARE RECOM ROJELIO D BY THE INTER NATIO NAL SOCIE TY OF NEPHR OLOGY (KDIG O 2012 CLINI CHRISTY PRACT ICE GUIDE LINE) . G1,NO RMAL OR HIGH: >89 ml/mi n/1.7 3 m2 G2,SD LDLY DECRE ASED: 60-89 ml/mi n/1.7 3 m2 G3A,M ILDLY TO MODER ATELY DECRE ASED: 45-59 ml/mi n/1.7 3 m2 G3B,M ODERA TELY TO SEVER SUZANNE DECRE ASED: 30-44 ml/mi n/1.7 3 m2 G4,SE VEREL Y DECRE ASED: 15-29 ml/mi n/1.7 3 m2 G5,KI DNEY FAILU RE: <15 ml/mi n/1.7 3 m2 Not Available Not Available 07/29/2025 06:24:08 07/17/2007/17/2025 CMP, serum or plasm a lab interpretati on Abnorm al Not Available Not Available 06:24:08 07/17/2007/17/2025 D-dim er, quant , plasm a D-dimer, quant, plasma low: 0NG{fe u}/mLh igh: 500NG{ feu}/m L D-Dim er value s less than or equal to 500 ng/mL FEU have a negat reynold predi ctive value of >95% for exclu taya of deep vein throm bosis and pulmo nary embol ism. In patie nts over 50 (who tend to have highe r macrina l basel ine D-Dim er value s), recen t studi es sugge st age-a djust ed D-Dim er cutof f value s (calc ulate d as: age [year s] x 10 ng/mL ) resul t in equiv alent outco mes and no addit ional false negat reynold findi ngs. Not Available Not Available 07/29/2025 06:24:08 07/17/2007/17/2025 CBC w/ auto diff WBC, auto, blood 6.09 text: 4.00 - 10.80 x10'3/ uL Not Available Not Available 07/29/2025 06:24:08 07/17/20 25 07/17/2025 CBC w/ auto diff RBC count, blood 5.57 text: 4.50 - 6.10 x10'6/ uL Not Available Not Available 07/29/2025 06:24:08 07/17/20 25 07/17/2025 CBC w/ auto diff hemoglobin (Hb), blood 16.3 text: 13.0 - 18.0 g/dL Not Available Not Available 07/29/2025 06:24:08 07/17/2007/17/2025 CBC w/ auto diff hematocrit, blood 47.7 % low: 37%hig h: 52% Not Available Not Available 07/29/2025 06:24:08 07/17/2007/17/2025 CBC w/ auto diff MCV, qn (obs) 85.6 text: 78.0 - 100.0 fL Not Available Not Available 07/29/2025 06:24:08 07/17/2007/17/2025 CBC w/ auto diff MCH, qn (obs) 29.3 pg low: 27pghi gh: 31pg Not Available Not Available 07/29/2025 06:24:08 07/17/20 25 07/17/2025 CBC w/ auto diff mean corpuscular hemoglobin concentratio n, qn, RBC 34.2 text: 33.0 - 36.0 g/dL Not Available Not Available 07/29/2025 06:24:08 07/17/20 25 07/17/2025 CBC w/ auto diff RDW 14.1 % low: 11.5%h igh: 14.5% Not Available Not Available 07/29/2025 06:24:08 07/17/20 25 07/17/2025 CBC w/ auto diff platelet count, blood 181 text: 150 - 350 x10'3/ uL Not Available Not Available 07/29/2025 06:24:08 07/17/20 25 07/17/2025 CBC w/ auto diff platelet mean volume, qn, blood (obs) 10.8 text: 7.4 - 10.4 fL high Not Available Not Available 07/29/2025 06:24:08 07/17/20 25 07/17/2025 CBC w/ auto diff CBC comment NORMAL REFERE NCE RANGE NOT ESTABL ISHED FOR THE PROPOR TIONAL LEUKOC YTE DIFFER ENTIAL . Not Available Not Available 06:24:08 07/17/20 25 07/17/2025 CBC w/ auto diff neutrophils/ 100 leukocytes, automated, blood (obs) 44.4 % Not Available Not Available 07/29/2025 06:24:08 07/17/20 25 07/17/2025 CBC w/ auto diff lymphocytes/ 100 leukocytes, automated, blood (obs) 37.6 % Not Available Not Available 07/29/2025 06:24:08 07/17/20 25 07/17/2025 CBC w/ auto diff monocytes/10 0 leukocytes, automated, blood (obs) 15.1 % Not Available Not Available 07/29/2025 06:24:08 07/17/20 25 07/17/2025 CBC w/ auto diff eosinophils/ 100 leukocytes, automated, blood (obs) 1.5 % Not Available Not Available 07/29/2025 06:24:08 07/17/20 25 07/17/2025 CBC w/ auto diff basophils/10 0 leukocytes, automated, blood (obs) 1.1 % Not Available Not Available 07/29/2025 06:24:08 07/17/20 25 07/17/2025 CBC w/ auto diff immature granulocytes /100 leukocytes, automated, blood (obs) 0.3 % Not Available Not Available 07/29/2025 06:24:08 07/17/20 25 07/17/2025 CBC w/ auto diff nucleated erythrocytes /100 leukocytes, ratio, blood (obs) 0 % Not Available Not Available 10/2024 06:24:08 07/17/20 25 07/17/2025 CBC w/ auto diff neutrophils, count, blood (obs) 2.7 text: 1.60 - 8.30 x10'3/ uL Not Available Not Available 07/29/2025 06:24:08 07/17/20 25 07/17/2025 CBC w/ auto diff lymphocytes, blood (obs) 2.29 text: 0.80 - 4.70 x10'3/ uL Not Available Not Available 07/29/2025 06:24:08 07/17/20 25 07/17/2025 CBC w/ auto diff monocytes, count, blood (obs) 0.92 text: 0.00 - 1.50 x10'3/ uL Not Available Not Available 07/29/2025 06:24:08 07/17/20 25 07/17/2025 CBC w/ auto diff eosinophils, quant, blood 0.09 text: 0.00 - 0.40 x10'3/ uL Not Available Not Available 07/29/2025 06:24:08 07/17/20 25 07/17/2025 CBC w/ auto diff basophils, count, blood (obs) 0.07 text: 0.00 - 0.20 x10'3/ uL Not Available Not Available 07/29/2025 06:24:08 07/17/20 25 07/17/2025 CBC w/ auto diff immature granulocytes count, blood 0.02 text: 0.00 - 0.03 x10'3/ uL Not Available Not Available 07/29/2025 06:24:08 07/17/20 25 07/17/2025 CBC w/ auto diff nucleated erythrocytes , count, blood (obs) 0 text: 0.00 - 0.01 x10'3/ uL Not Available Not Available 07/29/2025 06:24:08 07/17/20 25 07/17/2025 CBC w/ auto diff lab interpretati on Abnorm al Not Available Not Available 06:24:08 07/17/20 25 07/17/2025 urina lysis , compl ete color, urine (obs) YELLOW Not Available Not Available 10/2024 06:24:08 07/17/20 25 07/17/2025 urina lysis , compl ete clarity of urine (obs) CLEAR Not Available Not Available 07/29/2025 06:24:08 07/17/20 25 07/17/2025 urina lysis , compl ete specific gravity, urine 1.01 low: 1high: 1.025 Not Available Not Available 07/29/2025 06:24:08 07/17/20 25 07/17/2025 urina lysis , compl ete pH, urine 5.5 low: 5high: 8 Not Available Not Available 07/29/2025 06:24:08 07/17/20 25 07/17/2025 urina lysis , compl ete leukocyte esterase, ql, test strip, urine (obs) NEGATI VE text: negati ve Not Available Not Available 07/29/2025 06:24:08 07/17/20 25 07/17/2025 urina lysis , compl ete nitrite, ql, test strip, urine (obs) NEGATI VE text: negati ve Not Available Not Available 07/29/2025 06:24:08 07/17/20 25 07/17/2025 urina lysis , compl ete protein, ql, automated test strip, urine NEGATI VE text: negati ve Not Available Not Available 07/29/2025 06:24:08 07/17/20 25 07/17/2025 urina lysis , compl ete glucose, ql, automated test strip, urine (obs) 2+ text: negati ve abnormal Not Available Not Available 07/29/2025 06:24:08 07/17/20 25 07/17/2025 urina lysis , compl ete ketones, ql, automated test strip, urine (obs) NEGATI VE text: negati ve Not Available Not Available 07/29/2025 06:24:08 07/17/20 25 07/17/2025 urina lysis , compl ete urobilinogen , qn, test strip, urine 0.2 text: <1.0 eu/dL Not Available Not Available 07/29/2025 06:24:08 07/17/20 25 07/17/2025 urina lysis , compl ete total bilirubin, ql, automated test strip, urine (obs) NEGATI VE text: negati ve Not Available Not Available 07/29/2025 06:24:08 07/17/20 25 07/17/2025 urina lysis , compl ete erythrocytes , count, automated test strip, urine (obs) NEGATI VE text: negati ve Not Available Not Available 07/29/2025 06:24:08 07/17/20 25 07/17/2025 urina lysis , compl ete leukocytes, count, microscopy high power field, urine sediment (obs) 0-5 text: 0 - 5 /hpf Not Available Not Available 07/29/2025 06:24:08 07/17/20 25 07/17/2025 urina lysis , compl ete erythrocytes , count, microscopy high power field, urine sediment (obs) 0-5 text: 0 - 5 /hpf Not Available Not Available 07/29/2025 06:24:08 07/17/20 25 07/17/2025 urina lysis , compl ete epithelial casts, count, microscopy low power field, urine sediment (obs) RARE text: /lpf Not Available Not Available 07/29/2025 06:24:08 07/17/20 25 07/17/2025 urina lysis , compl ete bacteria, count, microscopy high power field, urine sediment (obs) TRACE text: /hpf Not Available Not Available 07/29/2025 06:24:08 07/17/20 25 07/17/2025 urina lysis , compl ete lab interpretati on Abnorm al Not Available Not Available 06:24:08 07/17/20 25 07/17/2025 rapid SARS CoV + SARS CoV 2 Ag, QL IA, respi rator y speci men rapid sars cov 2 Ag, ql ia, respiratory specimen NEGATI VE text: negati ve NEGAT REYNOLD RESUL TS DO NOT RULE OUT SARS- COV-2 INFEC TION AND SHOUL D NOT BE USED THE SOLE BASIS FOR TREAT MENT OR PATIE NT MANAG EMENT DECIS IONS, INCLU DING INFEC TION CONTR OL DECIS IONS. NEGAT REYNOLD RESUL TS SHOUL D BE CONSI DERED IN THE MIRTA XT OF A PATIE NT'S RECEN T EXPOS URES, HISTO RY AND THE PRESE NCE OF CLINI CHRISTY SIGNS AND SYMPT OMS CONSI STENT WITH COVID 19. THIS TEST HAS BEEN AUTHO RIZED BY THE FDA UNDER AN EMERG ENCY USE AUTHO RIZAT ION (EUA) FOR USE BY AUTHO RIZED LABOR ATORI ES. Not Available Not Available 07/29/2025 06:24:09 07/17/2007/17/2025 rapid SARS CoV + SARS CoV 2 Ag, QL IA, respi rator y speci men specimen type (obs) NASAL Not Available Not Available 06:24:09 07/17/2007/17/2025 influ marci (A+B) Ag, qual, unspe cifie d speci men specimen source identified (obs) NASAL Not Available Not Available 10/2024 06:24:08 07/17/20 25 07/17/2025 influ marci (A+B) Ag, qual, unspe cifie d speci men influenza virus A Ag, ql, unspecified specimen NEGATI VE text: negati ve Not Available Not Available 07/29/2025 06:24:08 07/17/2007/17/2025 influ marci (A+B) Ag, qual, unspe cifie d speci men haemophilus influenzae B Ag, ql, unspecified specimen NEGATI VE text: negati ve A NEGAT REYNOLD RESUL T DOES NOT EXCLU DE INFLU MARCI VIRUS INFEC TION. IF INFLU MARCI IS CIRCU LATIN G IN YOUR COMMU NITY, A DIAGN OSIS OF INFLU MARCI SHOUL D BE CONSI DERED BASED ON A PATIE NT'S CLINI CHRISTY PRESE NTATI ON AND EMPIR IC ANTIV IRAL TREAT MENT SHOUL D BE CONSI DERED IF INDIC ATED. Not Available Not Available 07/29/2025 06:24:08 07/17/20 25 07/17/2025 respi rator y syncy tial virus Ag, QL, unspe cifie d speci men specimen source identified (obs) ANA M MCMAHAN AL SWAB Not Available Not Available 06:24:08 07/17/20 25 07/17/2025 respi rator y syncy tial virus Ag, QL, unspe cifie d speci men respiratory syncytial virus Ag, ql, unspecified specimen NEGATI VE text: negati ve Not Available Not Available 07/29/2025 06:24:08 Result Notes None recorded. Problems Name Problem SNOMED Code Status Onset Date Resolution Date Notes Provider Name and Address Organization Details Recorded Time Migraine [id number] Active 022 Not Available [facility] 3 21:07:39 Notes:Hep C Problem Notes None recorded. Procedures Surgical History Date Name Laterality Status Provider Name and Address Organization Details Recorded Time 10/29/19 10 procedure on gallbladder completed Gisell olivier [place] - [facility] 01/23/2022 10:17:28 10/29/19 08 Appendectomy completed Gisell olivier [place] - [facility] 01/23/2022 10:16:56 Imaging Results None recorded. Procedure Notes None recorded. Medical Equipment None Reported. Allergies Allergen ID Allergen Name Allergen Category Reaction Reaction Severity Criticality Documentation Date Start Date Code Code System Note Provider Name and Address Organization Details Recorded Time [id number] morphine medicatio n hives Not available Not available 04/21/2025 7052 RxNorm Zuleika Crespo [place] null, [place] - [facility] 5 16:16:30 [id number] vancomyci n medicatio n rash Not available [facility] 08/19/20252023 70822 RxNorm [facility] unrec ogniz ed react ion (text : Jose Daniel ss, code: [id number]) [facility] Not Available [facility] External Data Service - prod 23:12:28 Medications Name Sig Start Date Stop Date Status Note LastModified by Organization Details LastModified Time verapamil ER (SR) 120 mg tablet,exte nded release TAKE 1 (ONE) TABLET BY MOUTH 2 TIMES DAILY 04/21 completed Not Available Not Available Not Available cyclobenzap rine 10 mg tablet TAKE 1 TABLET BY MOUTH THREE TIMES A DAY NEEDED active Not Available Not Available No t Available methocarbam ol 500 mg tablet TAKE 1.5 (ONE AND ONE-HALF) TABLETS BY MOUTH 3 TIMES DAILY NEEDED FOR MUSCLE SPASMS 04/21 completed Not Available Not Available Not Available bupropion HCl SR 150 mg tablet,12 hr sustained-r elease Take 1 tablet twice a day by oral route for 7 days. 10/26 completed Not Available Not Available Not Available doxycycline hyclate 100 mg capsule TAKE 1 CAPSULE BY MOUTH TWICE A DAY active Not Available Not Available No t Available carvedilol 12.5 mg tablet TAKE 1 TABLET TWICE A DAY BY ORAL ROUTE FOR 90 DAYS. NEEDS 2024 active Not Available Not Available Not Avai lable clindamycin HCl 300 mg capsule 300 MG ORALLY EVERY 8 HOURS 12/11 completed Not Available Not Available Not Available hydrocodone 5 mg-acetamin ophen 325 mg tablet TAKE 1 TABLET BY MOUTH EVERY 6 HOURS NEEDED FOR PAIN 08/11 completed Not Available Not Available Not Available senna 8.6 mg tablet TAKE 2 TABLETS BY MOUTH EVERY DAY NEEDED 01/26 completed Not Available Not Available Not Available ondansetron HCl 8 mg tablet TAKE 1 TABLET BY MOUTH EVERY 8 HOURS NEEDED FOR NAUSEA AND VOMITING 04/21 completed Not Available Not Available Not Available lisinopril 20 mg tablet TAKE 1 TABLET BY MOUTH EVERY DAY 06/13 completed Not Available Not Available Not Available ondansetron HCl 4 mg tablet Take 1 tablet twice a day by oral route as needed for 30 days. 10/26 completed Not Available Not Available Not Available famotidine 40 mg tablet TAKE 1 TABLET BY MOUTH EVERY DAY 04/21 completed Not Available Not Available Not Available methylpredn isolone 4 mg tablet TAKE 2 TABLETS WITH BREAKFAST ON DAY 1 & THEN 1 TABLET WITH BREAKFAST ON DAY 2 07/29 completed Not Available Not Available Not Available sumatriptan 50 mg tablet Take 1 tablet twice a day by oral route as needed for 12 days. 04/21 completed Not Available Not Available Not Available hydroxyzine HCl 50 mg tablet TAKE 1 TABLET BY MOUTH THREE TIMES DAILY NEEDED 08/11 completed Not Available Not Available Not Available acetaminoph en 300 mg-codeine 30 mg tablet TAKE 1 TABLET BY MOUTH EVERY 6 HOURS NEEDED FOR 10 DAYS 01/26 completed Not Available Not Available Not Available fexofenadin e 180 mg tablet TAKE 1 TABLET BY MOUTH EVERY DAY 04/21 completed Not Available Not Available Not Available prochlorper azine maleate 10 mg tablet TAKE 1 TABLET BY MOUTH EVERY 6 HOURS NEEDED FOR NAUSEA AND VOMITING 07/29 completed Not Available Not Available Not Available acyclovir 400 mg tablet TAKE 1 (ONE) TABLET BY MOUTH 2 TIMES DAILY active Not Available Not Available No t Available sulfamethox azole 800 mg-trimetho prim 160 mg tablet TAKE 1 TABLET BY MOUTH EVERY 12 HOURS FOR 10 DAYS 06/13 completed Not Available Not Available Not Available tramadol 50 mg tablet 10/26 completed Not Available Not Available Not Available acetaminoph en 500 mg tablet TAKE 2 TABLETS (1,000 MG TOTAL) BY MOUTH EVERY 6 HOURS NEEDED FOR PAIN 01/26 completed Not Available Not Available Not Available ondansetron 8 mg disintegrat ing tablet TAKE 1 (ONE) TABLET BY MOUTH EVERY 8 HOURS ALLOW TABLET TO DISSOLVE ON THE TONGUE active Not Available Not Available No t Available oxycodone-a cetaminophe n 5 mg-325 mg tablet TAKE 1 TABLET BY MOUTH EVERY 6 HOURS NEEDED FOR PAIN 04/21 completed Not Available Not Available Not Available amoxicillin 875 mg tablet TAKE 1 TABLET BY MOUTH EVERY 12 HOURS FOR 10 DAYS 04/21 completed Not Available Not Available Not Available amlodipine 10 mg tablet TAKE 1 (ONE) TABLET BY MOUTH ONCE DAILY NEED TO FOLLOW WITH PRIMARY CARE 07/29 completed Not Available Not Available Not Available cephalexin 500 mg capsule TAKE 1 CAPSULE BY MOUTH EVERY 6 HOURS FOR 10 DAYS 06/13 completed Not Available Not Available Not Available dexamethaso ne 4 mg tablet TAKE 2 TABLETS BY MOUTH ONCE DAILY 01/26 completed Not Available Not Available Not Available docusate sodium 100 mg capsule Take 1 capsule every day by oral route. active Not Available Not Available No t Available gabapentin 300 mg capsule TAKE 1 CAPSULE BY MOUTH THREE TIMES A DAY FOR 90 DAYS 2024 active Not Available Not Available Not Avai lable montelukast 10 mg tablet TAKE 1 TABLET 1 HOUR PRIOR TO TREATMENT 07/29 completed Not Available Not Available Not Available hydroxyzine HCl 25 mg tablet TAKE 1 (ONE) TABLET BY MOUTH 4 TIMES DAILY NEEDED FOR ITCHING active Not Available Not Available No t Available mupirocin 2 % topical ointment APPLY A SMALL AMOUNT TO AFFECTED AREA 3 TIMES A DAY 04/21 completed Not Available Not Available Not Available mirtazapine 15 mg tablet TAKE 1 TABLET BY MOUTH EVERYDAY AT BEDTIME active Not Available Not Available No t Available ibuprofen 600 mg tablet 12/11 completed Not Available Not Available Not Available methylpredn isolone 4 mg tablets in a dose pack FOLLOW PACKAGE DIRECTION S 12/11 completed Not Available Not Available Not Available losartan 100 mg tablet TAKE 1 TABLET BY MOUTH EVERY DAY active Not Available Not Available No t Available sertraline 50 mg tablet TAKE 1 TABLET BY MOUTH EVERY DAY 2024 active Not Available Not Available Not Avai lable doxycycline hyclate 100 mg tablet TAKE 1 TABLET EVERY 12 HOURS DAILY 07/29 completed Not Available Not Available Not Available atenolol 50 mg tablet TAKE 1 TABLET BY MOUTH EVERY DAY 2024 active Not Available Not Available Not Avai lable naproxen 500 mg tablet TAKE 1 TABLET BY MOUTH TWICE DAILY 12/11 completed Not Available Not Available Not Available oxycodone 5 mg tablet TAKE 1 TABLET BY MOUTH EVERY 6 HOURS NEEDED FOR PAIN 01/26 completed Not Available Not Available Not Available escitalopra m 10 mg tablet TAKE 1 TABLET BY MOUTH EVERY DAY 08/11 completed Not Available Not Available Not Available insulin aspart (U-100) 100 unit/mL (3 mL) subcutaneou s pen INJECT 5 UNITS SUBCUTANE OUS 3 TIMES DAILY WITH MEALS 04/21 completed Not Available Not Available Not Available tadalafil 20 mg tablet TAKE 1 TABLET BY MOUTH EVERY DAY NEEDED active Not Available Not Available No t Available lactulose 10 gram/15 mL oral solution TAKE 30 ML EVERY 3 DAYS 04/21 completed Not Available Not Available Not Available magnesium 10/26 completed Not Available Not Available Not Available melatonin 10/26 completed Not Available Not Available Not Available riboflavin (vitamin B2) 10/26 completed Not Available Not Available Not Available Revlimid 25 mg capsule TAKE 1 CAPSULE BY MOUTH ONCE DAILY 07/29 completed Not Available Not Available Not Available lenalidomid e 10 mg capsule Take 1 capsule every day by oral route. active Not Available Not Available No t Available Lantus Solostar U-100 Insulin 100 unit/mL (3 mL) subcutaneou s pen INJECT 10 (TEN) UNITS SUBCUTANE OUSLY EVERY 24 HOURS FOR 30 DAYS 07/29 completed Not Available Not Available Not Available oxycodone 20 mg tablet TAKE 1 TABLET BY MOUTH EVERY 12 HOURS active Not Available Not Available No t Available oxycodone 10 mg tablet TAKE 1 TABLET BY MOUTH EVERY 8 HOURS NEEDED 01/26 completed Not Available Not Available Not Available Bystolic 20 mg tablet Take 1 tablet every day by oral route for 90 days. 04/23 completed Not Available Not Available Not Available OneTouch Verio test strips USE TO CHECK BLOOD SUGARS 3 TIMES DAILY BEFORE MEALS. active Not Available Not Available No t Available Eliquis 5 mg tablet TAKE 1 TABLET BY MOUTH TWICE A DAY active Not Available Not Available No t Available Jardiance 25 mg tablet Take 1 tablet every day by oral route for 90 days. 2024 active Not Available Not Available Not Avai lable OxyContin 15 mg tablet,mari h resistant,e xtended release TAKE 1 TABLET BY MOUTH EVERY 12 HOURS 01/26 completed Not Available Not Available Not Available OxyContin 20 mg tablet,mari h resistant,e xtended release TAKE 1 TABLET BY MOUTH EVERY 12 HOURS 04/21 completed Not Available Not Available Not Available TRUEplus Pen Needle 31 gauge x 1/4 USE TO INJECT INSULIN 3 TIMES DAILY active Not Available Not Available No t Available baclofen 5 mg tablet TAKE 1 TABLET BY MOUTH THREE TIMES A DAY 07/29 completed Not Available Not Available Not Available Ubrelvy 100 mg tablet Take 1 tablet every day by oral route as needed for 30 days. 01/25 completed Not Available Not Available Not Available insulin glargine-yf gn (U-100) 100 unit/mL (3 mL) subcutaneou s pen INJECT 10 UNITS INTO THE SKIN ONCE DAILY 04/21 completed Not Available Not Available Not Available Dexcom G7 [employer] USE DIRECTED active Not Available Not Available No t Available Dexcom G7 Sensor device USE DIRECTED active Not Available Not Available No t Available Vitals Date Recorded Body height Body mass index (BMI) Body weight Oxygen saturation Heart rate Systolic And Diastolic Provider Name and Address Organization Details Last Updated DateTime 185.42 cm 32.3 kg/m2 925586. 13 g 96 % 75 /min 120/88 mm[Hg] Zuleika Crespo [place] - [facility] 11:46:28 Social History Question Answer Notes LastModified by Organizat ion Details LastModified Time Tobacco Smoking Status Current Every Day Smoker Zuleika Crsepo MA null, [place] - [facility] 04/21/2025 16:24:47 Are You Blind Or Do You Have Difficulty Seeing? No Information not available 10/26/2022 What Is Your Level Of Caffeine Consumption? Occasional [email or web address] Information not available 01/26/2025 In The 14 Days Before Symptom Onset, Have You Had Close Contact With A Laboratory-confir med COVID-19 While That Case Was Ill? No Information not available 01/23/2022 In The 14 Days Before Symptom Onset, Have You Had Close Contact With A Person Who Is Under Investigation For COVID-19 While That Person Was Ill? No Information not available 01/23/2022 Have You Been To An Area Known To Be High Risk For COVID-19? No Information not available 01/23/2022 Are You Deaf Or Do You Have Serious Difficulty Hearing? No Information not available 10/26/2022 What Type Of Diet Are You Following? REGULAR Information not available 01/23/2022 What Was The Date Of Your Most Recent Tobacco Screening? 07/29/2025 Information not available 07/29/2025 What Is Your Relationship Status? Single Information not available 10/26/2022 Do You Use Your Seat Belt Or Car Seat Routinely? Yes Information not available 10/26/2022 Do You Have Smoke And Carbon Monoxide Detectors In Your Home? Yes Information not available 01/23/2022 Are You Passively Exposed To Smoke? Yes Information no t available 10/26/2022 How Much Tobacco Do You Smoke? 0.5 PPD Information not available 04/21/2025 Has Tobacco Cessation Counseling Been Provided? Yes Information not available 01/23/2022 On What Date Was Tobacco Cessation Counseling Provided? 07/29/2025 Information not available 07/29/2025 Sex: Male Functional Status Question Answer Note LastModified by Organizat ion Details LastModified Time Do you use any illicit or recreational drugs? Yes Marijuanna - edibles at night Information not available 04/21/2025 Do you or have you ever used any other forms of tobacco or nicotine? No Information not available 01/23/2022 What is your level of alcohol consumption? None Information not available 12/11/2023 Are you currently employed? Yes Information not available 10/26/2022 Are you able to care for yourself independently? Yes Information not available 01/23/2022 What is your occupation? [employer] Information not available 10/26/2022 Mental Status Question Answer Note LastModified by Organization D etails LastModified Time Do you feel stressed (tense, restless, nervous, or anxious, or unable to sleep at night)? [id number] Information not available 10/26/2022 Family History Nothing Reported. Medical History Condition Response Coronary Artery Disease N Other N High Blood Pressure Y Atrial Fibrillation N Kidney or Bladder Problems N Thyroid Problems N GI Problems Y Depression N COPD N Blood Clots N Skin Problems N Eating Disorder N Anemia N Heart Attack (SD) N Anxiety Disorder Y Diabetes N Muscle, Joint, or Bone Problems N Seizures/Epilepsy N Acid Reflux (GERD) Y Cancer N Stroke N Asthma N Allergies N ADHD N Substance Abuse Y High Cholesterol N Hepatitis Y Liver Disease N Schizophrenia N Headaches Y Osteoporosis N Heart Failure N Past Encounters Encounter ID Performer Location Encounter Start Date Encounter Closed Date Diagnosis/Indication Diagnosis SNOMED-CT Code Diagnosis ICD10 Code Diagnosis IMO Codes Diagnosis Note [id number] Robbie Hinson MD [facility] [address] [place] [address] 07/29/2025 11:15:40 07/31/2025 18:25:43 Essential hypertension 34977224 I10 50070 atenolol now not carvedilol 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 5383449750 55962 G56.01 716235 Primary er ectile dysfunction 746874297 N52.9 16845681 Obese class I 0130967469 66325 E66.811 E66.3 [id number] Health Concerns Section Related Observation LastModified by Organization Detai ls LastModified Time None Recorded Concern Status LastModified by Organization Details LastModified Time None Recorded Payers Encounter Date Sequence Insurance Name Policy Number Policy Renee Covered Member ID Renee Member ID Guarantor Name 07/29/2025 1 [employer] [facility] [facility] ON OR AFTER 09/28/2020 (MEDICAID REPLACEMENT - HMO) Joselito Nguyen [id number] Joselito Nguyen 07/29/2025 2 [facility] ON OR AFTER 04/28/21 (MEDICAID REPLACEMENT - HMO) Joselito Nguyen [id number] Joselito Nguyen Notes Date Note Type Note Provider Name and Address Organization Details Recorded Time 07/29/2025 text/html ROS as noted in the HPI rt hand going numb and says has had EMG that was positive..we did not order or refer then..wants to stop carvedilol (was already removed and replaced with atenolol...also recheck testosterone cant get erection Anastacio Sorenson PA-C Attn: [address] [facility], [place], [address], [place] - [facility] 07/29/2025 12:19:51
[2025-10-28 08:34] LABS: Hematocrit 44.8 % (40.0-54.0); Hemoglobin 15.2 g/dL (14.0-18.0); Immature Granulocyte Percent A 0.2 % (0.0-0.0); Lymphocytes Absolute Auto 4.51 K/mm3 (1.10-4.50); Mean Corpuscular HGB Conc 33.9 g/dL (32-36); Mean Corpuscular Hemoglobin 30.0 pg (27.0-31.0); Mean Corpuscular Volume 88.5 fL (78.0-102.0); Nucleated Red Blood Cells Absolute Auto 0.00 K/mm3 (0.00-0.00); Nucleated Red Blood Cells Perc 0.0 % (0-0.0); Platelet Count Result 189 K/mm3 (150-420); Red Blood Count 5.06 M/mm3 (4.70-6.10); White Blood Count 9.9 K/mm3 (4.8-10.8)
[2025-10-28 08:44] VITALS: BP 140/83; PULSE 80; RESP 14; TEMP 36.6; O2SAT 98; BMI 33.7
[2025-10-28] MEDS: FAMOTIDINE 20 MG TABLET PO (08:50)
[2025-10-28] MEDS: ACETAMINOPHEN 325 MG TABLET 650 MG PO (08:50)
[2025-10-28] MEDS: diphenhydrAMINE HCl CAP 25 MG CAPSULE PO (08:50)
[2025-10-28 09:00] LABS: Alanine Aminotransferase 39 U/L (6-50); Albumin Level 4.7 g/dL (3.5-5.1); Alkaline Phosphatase 95 U/L (38-126); Anion Gap 15 mmol/L (4-12); Aspartate Amino Transferase 28 U/L (17-59); Bilirubin,Total 0.7 mg/dL (0.2-1.3); Blood Urea Nitrogen 14 mg/dL (9-20); Calcium 9.1 mg/dL (8.4-10.2); Carbon Dioxide 18 mmol/L (22-30); Chloride 107 mmol/L (98-107); Estimated CRCL calculation 137 ml/min; Estimated Glomerular Filt Rate > 60; Glucose 300 mg/dL (65-110); Osmolality Calculated 301 mOsm/kg (285-295); Potassium 3.6 mmol/L (3.4-5.0); Sodium 140 mmol/L (137-145); Total Protein 6.8 g/dL (6.3-8.2)
[2025-10-28] MEDS: DARATUMUMAB-HYALURONIDASE-FIHJ 1,800 MG-30,000 UNITS VIAL 15 ML SUB-Q (09:09)
--- NOTE | 2025-10-28 09:30 | PC.NURSE ---
Patient tolerated treatment injection well. SEE MAR/patient care notes.
[2025-10-28 09:32] VITALS: BP 139/80; PULSE 80
[2025-10-30 10:19] LABS: Immunoglobulin G 309 mg/dL (700-1600)
[2025-10-30 10:28] LABS: Immunoglobulin A < 40 mg/dL (70-400); Immunoglobulin M < 25 mg/dL (40-230)
[2025-10-30 14:08] LABS: Free Lambda Lt Chains, Serum 4.3 mg/L (5.7-26.3); Kappa/Lambda Ratio, Serum 1.60 (0.26-1.65)
[2025-11-02 11:09] LABS: Albumin 3.8 g/dL (2.9-4.4); Alpha-1-Globulin 0.2 g/dL (0.0-0.4); Alpha-2-Globulin 1.1 g/dL (0.4-1.0); Gamma Globulin 0.3 g/dL (0.4-1.8); Immunoglobulin A, Qn 28 mg/dL (90-386); Immunoglobulin G, Qn 348 mg/dL (603-1613); Immunoglobulin M, Qn 20 mg/dL (20-172)
== END 2025-10-28 08:18 | disposition home or self-care (01) ==
PROVIDERS: PCP Physician Assistant; Visit Provider Internal Medicine Hematology
DX: Z51.11 Encounter for antineoplastic chemotherapy (principal); C90.00 Multiple myeloma not having achieved remission
CPT/HCPCS: 36415; 80053; 82784; 83521; 84155; 85025; 86334; 96401; A9270; J8540; J9144